=== PATIENT | female | born 1970 | race Caucasian/White ===

== ENCOUNTER 2017-07-29 13:06 | Inpatient (IN) | payer MEDICAID ==
[~2017-07-29] VITALS: Ht 165.1 cm; Wt 137.0 kg
[2017-07-29] VITALS (24 sets, daily range): BP systolic 76–133; BP diastolic 39–107
[2017-07-29] MEDS ORDERED: LORazepam Inj 2mg/ml 1ml IV ONE (13:30)
[2017-07-29 14:15] LABS: HEMATOCRIT 36.4 % (37.0-47.0); HEMOGLOBIN 10.5 G/DL (12.0-16.0); MEAN CORPUSCULAR VOLUME 71 FL (80-99); PLATELET COUNT 525 K/UL (150-450); RED BLOOD COUNT 5.09 M/UL (4.20-5.40); RED CELL DISTRIBUTION WIDTH 16.2 % (11.6-14.8)
[2017-07-29] MEDS ORDERED: Vancomycin 1.5gm/D5W 250ml 250 ML IVPB ONE (14:15)
[2017-07-29] MEDS ORDERED: Piperacillin/Tazobactam 3.375 GM in NS 110 ML IVPB ONE (14:15)
[2017-07-29] MEDS ORDERED: Insulin Human Regular 100units/ml 3ml IV ONE ×3 (14:15→18:30)
--- NOTE | 2017-07-29 14:16 | Emergency Room Report ---
History of Present Illness General Chief Complaint: Dizziness Source: Patient Present Illness HPI Patient presents with complaints of dizziness Upon initial evaluation patient appears tachypneic, hyperventilating Presented hypotensive Patient also complains of lower abdomen redness and recent antibiotic initiation Patient herself is extremely ill, speaks in 1 or 2 word sentences Mother reports that last night she did not appear to sick she had started her antibiotics And this morning appeared more ill Patient does not have history of diabetes however Accu-Chek reading was HI here in the emergency room indicating blood sugar over 500 Allergies: Coded Allergies: PENICILLINS (Verified Allergy, Unknown, 07/30/17) Patient History Limited by: medical condition Past Medical History: see triage record Pertinent Family History: none Now: No Reviewed Nursing Documentation: PMH: Agreed; PSxH: Agreed Nursing Documentation-PMH Past Medical History: No Stated History Review of Systems All Other Systems: limited - Other than the ones mentioned in the history of present illness all others are reviewed however they do stay limited due to the patient's mental status Physical Exam Vital Signs Date Time Temp Pulse Resp B/P (MAP) Pulse Ox O2 Delivery O2 Flow Rate FiO2 07/29/17 13:02 97.0 100 16 73/49 98 Room Air 97.0 Sp02 EP Interpretation: reviewed, normal General Appearance: moderate distress - Tachypneic and ill-appearing Head: normocephalic, atraumatic Eyes: bilateral eye PERRL ENT: dry mucus membranes Neck: full range of motion, supple Respiratory: lungs clear, normal breath sounds Cardiovascular #1: regular rate, rhythm, no murmur Gastrointestinal: other - Area of erythema and fluctuance over the suprapubic area tracking to the left lower abdomen Genitourinary: no CVA tenderness Musculoskeletal: other - No obvious focal weakness however patient is generally weak Neurologic: alert, responsive - With increased stimulation patient is verbal, however lethargic and sluggish to respond, Skin: other - General pallor along with erythema and fluctuance lower abdomen as described above Lymphatic: no adenopathy Procedures Critical Care Time Critical Care Time 50 minutes for multiple re-evaluations , critical presentations, concern for cardiopulmonary arrest not including any procedural time Central Line Central Line : Consent: Emergent Central Line Lumen: triple Maximal Sterile Barrier Tech: yes cap, yes mask, yes sterile gown, yes sterile gloves, yes large sterile sheet, yes hand hygiene, yes chlorhexidine prep Central Line Postion: femoral (R) Complications: none Central Line Post Position: sutured Attempts: Other - 2 Patient Tolerated: Well Complications: None Progress ultrasound guidance Intubation Intubation : Consent: Emergent Intubation Method: orotracheal Tube Size (cm): 8.0 Medications: Etomidate, Succinylcholine Breath Sounds after Intubation: equal Intubation Complications: no complications, O2 saturation decreased Post Intubation Xray: Yes Attempts: One Patient Tolerated: Well Complications: None Progress Upon oral intubation please note that the patient's pharyngeal region had evidence of significant pustules and erythema Medical Decision Making Diagnostic Impression: Primary Impression: Septic shock Additional Impressions: Cellulitis Necrotizing fasciitis DKA (diabetic ketoacidoses) ER Course Patient is presenting in critical condition Is in acute distress requiring aggressive hydration Patient's blood glucose is also dangerously elevated Initial hydration attempts and IV insulin is made Patient requiring central line placement including airway protection with oral intubation Patient has signs and symptoms of severe sepsis and septic shock Patient also showing signs of DKA Multidisciplinary consultations are made and have seen the patient to the emergency room including infectious disease and surgery There is concern regarding possible necrotizing fasciitis and early Javier's gangrene Patient remains in critical condition and has extreme poor prognosis given this initial presentation Sepsis reexamination Time:0 VS refer to nursing note cvs: Tachycardic respiratory: improved respiration peripheral pulses: 2+radial cap refill:<2 seconds skin exam: warm, dry, not mottled Labs Test 07/29/17 13:55 07/29/17 15:00 07/29/17 15:34 07/29/17 17:52 White Blood Count 36.2 K/UL (4.8-10.8) Red Blood Count 5.09 M/UL (4.20-5.40) Hemoglobin 10.5 G/DL (12.0-16.0) Hematocrit 36.4 % (37.0-47.0) Mean Corpuscular Volume 71 FL (80-99) Mean Corpuscular Hemoglobin 20.6 PG (27.0-31.0) Mean Corpuscular Hemoglobin Concent 28.9 G/DL (32.0-36.0) Red Cell Distribution Width 16.2 % (11.6-14.8) Platelet Count 525 K/UL (150-450) Mean Platelet Volume 8.3 FL (6.5-10.1) Neutrophils (%) (Auto) % (45.0-75.0) Lymphocytes (%) (Auto) % (20.0-45.0) Monocytes (%) (Auto) % (1.0-10.0) Eosinophils (%) (Auto) % (0.0-3.0) Basophils (%) (Auto) % (0.0-2.0) Differential Total Cells Counted 100 Neutrophils % (Manual) 69 % (45-75) Lymphocytes % (Manual) 10 % (20-45) Monocytes % (Manual) 5 % (1-10) Eosinophils % (Manual) 0 % (0-3) Basophils % (Manual) 0 % (0-2) Band Neutrophils 16 % (0-8) Platelet Estimate Increased Platelet Morphology Giant Platelets Occasional Polychromasia 1+ Hypochromasia 1+ Anisocytosis 1+ Microcytosis 1+ D-Dimer 1.85 mg/L FEU (0.00-0.49) Urine Color Pale yellow Urine Appearance Clear Urine pH 5 (4.5-8.0) Urine Specific [place] 1.020 (1.005-1.035) Urine Protein 3+ (NEGATIVE) Urine Glucose (UA) 4+ (NEGATIVE) Urine Ketones 3+ (NEGATIVE) Urine Occult Blood 5+ (NEGATIVE) Urine Nitrite Negative (NEGATIVE) Urine Bilirubin Negative (NEGATIVE) Urine Urobilinogen Normal MG/DL (0.0-1.0) Urine Leukocyte Esterase 3+ (NEGATIVE) Urine RBC 5-10 /HPF (0 - 2) Urine WBC 5-10 /HPF (0 - 2) Urine Squamous Epithelial Cells Moderate /LPF (NONE/OCC) Urine Bacteria Few /HPF (NONE) Urine HCG, Qualitative Negative (NEGATIVE) Sodium Level 118 MMOL/L (136-145) Potassium Level 5.0 MMOL/L (3.5-5.1) Chloride Level 85 MMOL/L (98-107) Carbon Dioxide Level < 5 MMOL/L (21-32) Blood Urea Nitrogen 28 mg/dL (7-18) Creatinine 1.8 MG/DL (0.55-1.30) Estimat Glomerular Filtration Rate 30.1 mL/min (>60) Glucose Level 868 MG/DL (74-106) Calcium Level 10.7 MG/DL (8.5-10.1) Total Bilirubin 0.7 MG/DL (0.2-1.0) Aspartate Amino Transf (AST/SGOT) 44 U/L (15-37) Alanine Aminotransferase (ALT/SGPT) 29 U/L (12-78) Alkaline Phosphatase 337 U/L (46-116) Total Creatine Kinase 159 U/L (26-308) Creatine Kinase MB 3.3 NG/ML (0.0-3.6) Creatine Kinase MB Relative Index 2.0 Troponin I 0.000 ng/mL (0.000-0.056) Pro-B-Type Natriuretic Peptide 5024 pg/mL (0-125) Total Protein 8.3 G/DL (6.4-8.2) Albumin 2.3 G/DL (3.4-5.0) Globulin 6.0 g/dL Albumin/Globulin Ratio 0.4 (1.0-2.7) Lipase 47 U/L (73-393) Urine Opiates Screen Negative (NEGATIVE) Urine Barbiturates Screen Negative (NEGATIVE) Phencyclidine (PCP) Screen Negative (NEGATIVE) Urine Amphetamines Screen Negative (NEGATIVE) Urine Benzodiazepines Screen Negative (NEGATIVE) Urine Cocaine Screen Negative (NEGATIVE) Urine Marijuana (THC) Screen Negative (NEGATIVE) Lactic Acid Level 1.10 mmol/L (0.66-2.22) Arterial Blood pH 6.830 (7.350-7.450) 6.790 (7.350-7.450) Arterial Blood Partial Pressure CO2 21.0 mmHg (35.0-45.0) 29.8 mmHg (35.0-45.0) Arterial Blood Partial Pressure O2 108.8 mmHg (75.0-100.0) 100.5 mmHg (75.0-100.0) Arterial Blood HCO3 3.4 mmol/L (22.0-26.0) 4.4 mmol/L (22.0-26.0) Arterial Blood Oxygen Saturation 95.7 % (92.0-98.0) 94.4 % (92.0-98.0) Arterial Blood Base Excess -29.1 -28.9 Ravi Test Positive Positive Test 07/29/17 19:56 07/29/17 20:40 07/30/17 04:50 07/30/17 07:00 Glucose Level 530 MG/DL (74-106) 231 MG/DL (74-106) Arterial Blood pH 6.992 (7.350-7.450) 7.170 (7.350-7.450) Arterial Blood Partial Pressure CO2 25.7 mmHg (35.0-45.0) 24.9 mmHg (35.0-45.0) Arterial Blood Partial Pressure O2 110.9 mmHg (75.0-100.0) 114.4 mmHg (75.0-100.0) Arterial Blood HCO3 6.1 mmol/L (22.0-26.0) 9.0 mmol/L (22.0-26.0) Arterial Blood Oxygen Saturation 97.4 % (92.0-98.0) 97.9 % (92.0-98.0) Arterial Blood Base Excess -23.8 -17.8 Ravi Test Positive Positive White Blood Count 19.9 K/UL (4.8-10.8) Red Blood Count 4.23 M/UL (4.20-5.40) Hemoglobin 9.4 G/DL (12.0-16.0) Hematocrit 29.0 % (37.0-47.0) Mean Corpuscular Volume 69 FL (80-99) Mean Corpuscular Hemoglobin 22.3 PG (27.0-31.0) Mean Corpuscular Hemoglobin Concent 32.6 G/DL (32.0-36.0) Red Cell Distribution Width 15.6 % (11.6-14.8) Platelet Count 375 K/UL (150-450) Mean Platelet Volume 7.7 FL (6.5-10.1) Neutrophils (%) (Auto) % (45.0-75.0) Lymphocytes (%) (Auto) % (20.0-45.0) Monocytes (%) (Auto) % (1.0-10.0) Eosinophils (%) (Auto) % (0.0-3.0) Basophils (%) (Auto) % (0.0-2.0) Differential Total Cells Counted 100 Neutrophils % (Manual) 72 % (45-75) Lymphocytes % (Manual) 5 % (20-45) Monocytes % (Manual) 6 % (1-10) Eosinophils % (Manual) 0 % (0-3) Basophils % (Manual) 0 % (0-2) Band Neutrophils 17 % (0-8) Platelet Estimate Adequate Platelet Morphology Normal Hypochromasia 1+ Anisocytosis 1+ Microcytosis 1+ Sodium Level 130 MMOL/L (136-145) Potassium Level 2.4 MMOL/L (3.5-5.1) Chloride Level 101 MMOL/L (98-107) Carbon Dioxide Level 11 MMOL/L (21-32) Anion Gap 19 mmol/L (5-15) Blood Urea Nitrogen 39 mg/dL (7-18) Creatinine 2.6 MG/DL (0.55-1.30) Estimat Glomerular Filtration Rate 19.7 mL/min (>60) Hemoglobin A1c 12.6 % (4.3-6.0) Calcium Level 9.6 MG/DL (8.5-10.1) Phosphorus Level 1.7 MG/DL (2.5-4.9) Magnesium Level 1.2 MG/DL (1.8-2.4) Troponin I 0.017 ng/mL (0.000-0.056) Triglycerides Level 193 MG/DL (30-150) Thyroid Stimulating Hormone (TSH) 1.303 uiU/mL (0.358-3.740) Free Thyroxine 1.23 NG/DL (0.76-1.46) Rhythm Strip Diag. Results EP Interpretation: yes Rate: 105 Rhythm: no PVC's, no ectopy, other - Sinus tach Chest X-Ray Diagnostic Results Chest X-Ray Diagnostic Results #1: Chest X-Ray Ordered: Yes # of Views/Limited/Complete: 1 View Indication: Chest Pain EP Interpretation: Yes Interpretation: no pneumothorax, other - Bilateral atelectasis/possible infiltrate Impression: Other - Possible infiltrated/atelectasis Electronically Signed by: Indy Frankel DO Chest X-Ray Diagnostic Results #2: Chest X-Ray Ordered: Yes # of Views/Limited/Complete: 1 View Indication: Other - Intubation EP Interpretation: Yes Interpretation: no consolidation, no pneumothorax, other - ET tube approximately 2.5 cmAbove waqar Impression: Other - ET tube appropriate, continued bilateral atelectasis Electronically Signed by: Indy Frankel DO CT/MRI/US Diagnostic Results CT/MRI/US Diagnostic Results : Impression CT abdomen pelvisIMPRESSION: Exam without intravenous and oral contrast. Within these limitations: * Skin thickening and subcutaneous inflammatory change involving the left lower anterior abdominal wall most likely related to a cellulitis. Correlation with physical exam recommended. No well-defined/drainable fluid collection to suggest abscess. * Contracted gallbladder with probable calcified gallstone. No definite CT evidence to suggest an acute cholecystitis. * Under distention versus thickening of the bladder wall. * Probable fibroid uterus. * Fatty atrophy of the pancreas. Correlate for history of diabetes. Last Vital Signs Date Time Temp Pulse Resp B/P (MAP) Pulse Ox O2 Delivery O2 Flow Rate FiO2 07/29/17 13:02 97.0 100 16 73/49 98 Room Air 97.0 Status: worsened Disposition: ADMITTED INPATIENT Condition: Critical Referrals: NOT CHOSEN IPA/,REFERRING (PCP) Indy Frankel DO July 29, 2017 14:16
[2017-07-29 14:17] LABS: APPEARANCE,URINE CLEAR; BILIRUBIN, URINE NEGATIVE (NEGATIVE); COLOR,URINE PALE YELLOW; GLUCOSE, URINE (UA) 4+ (NEGATIVE); KETONES,URINE 3+ (NEGATIVE); LEUKOCYTE ESTERASE ,URINE 3+ (NEGATIVE); NITRITE,URINE NEGATIVE (NEGATIVE); PH,URINE 5 (4.5-8.0); PROTEIN,URINE 3+ (NEGATIVE); UROBILINOGEN,URINE NORMAL MG/DL (0.0-1.0)
[2017-07-29 14:28] LABS: WHITE BLOOD COUNT 36.2 K/UL (4.8-10.8)
[2017-07-29 14:56] LABS: ALANINE AMINOTRANSFERASE 29 U/L (12-78); ALBUMIN 2.3 G/DL (3.4-5.0); ALBUMIN/GLOBULIN RATIO 0.4 (1.0-2.7); ALKALINE PHOSPHATASE 337 U/L (46-116); ASPARTATE AMINO TRANSFERASE 44 U/L (15-37); BILIRUBIN,TOTAL 0.7 MG/DL (0.2-1.0); BLOOD UREA NITROGEN 28 mg/dL (7-18); CALCIUM 10.7 MG/DL (8.5-10.1); CHLORIDE 85 MMOL/L (98-107); CKMB 3.3 NG/ML (0.0-3.6); CREATINE KINASE 159 U/L (26-308); CREATININE 1.8 MG/DL (0.55-1.30)
[2017-07-29 15:00] LABS: SODIUM 118 MMOL/L (136-145)
[2017-07-29 15:15] LABS: CARBON DIOXIDE < 5 MMOL/L (21-32)
--- NOTE | 2017-07-29 15:53 | Diagnostic Imaging Report ---
Indication: Abdominal pain Technique: CT of the abdomen and pelvis utilizing automated exposure control without intravenous or oral contrast. CT dose: Total DLP 1073.87 mGycm; CTDI vol 19.75 mGy Comparison: None Findings: Please note that evaluation of the vascular structures and abdominal and pelvic viscera is limited without the use of intravenous and oral contrast. Within these limitations, the following observations are made. Dependent atelectasis noted in the lung bases. Heart is enlarged. No pericardial effusion. Contracted gallbladder with probable calcified gallstone. No CT evidence to suggest acute cholecystitis. Noncontrast evaluation of the liver, spleen, adrenal glands grossly unremarkable. There is fatty atrophy of the pancreas. No evidence of urinary tract stone or hydronephrosis bilaterally. There is underdistention versus thickening of the bladder. The uterus is enlarged and somewhat lobular in contour raising question for fibroids. There is no free intraperitoneal air or fluid. There is no evidence of bowel obstruction. The appendix is normal. Abdominal aorta is normal in caliber. There is no pathologically enlarged abdominal or pelvic lymphadenopathy. Small inguinal lymph nodes are noted, likely reactive in etiology. There is a small fat-containing umbilical hernia. There is skin thickening with subcutaneous soft tissue stranding involving the left anterior abdominal wall. There is no well-defined or drainable fluid collection to suggest abscess. Findings may reflect a cellulitis. Correlate clinically. There are multilevel degenerative changes of the spine. No acute osseous abnormality seen. IMPRESSION: Exam without intravenous and oral contrast. Within these limitations: * Skin thickening and subcutaneous inflammatory change involving the left lower anterior abdominal wall most likely related to a cellulitis. Correlation with physical exam recommended. No well-defined/drainable fluid collection to suggest abscess. * Contracted gallbladder with probable calcified gallstone. No definite CT evidence to suggest an acute cholecystitis. * Under distention versus thickening of the bladder wall. * Probable fibroid uterus. * Fatty atrophy of the pancreas. Correlate for history of diabetes. The CT scanner at [facility] is accredited by the [employer] and the scans are performed using protocols designed to limit radiation exposure to as low as reasonably achievable to attain images of sufficient resolution adequate for diagnostic evaluation.
--- NOTE | 2017-07-29 16:39 | Cardiac Electrophysiology PN ---
Subjective Subjective Patient seen in ER and DW RN, Dr Garcia and Dr Colbert. Dictated [id number] Objective Last 24 Hour Vital Signs Date Time Temp Pulse Resp B/P (MAP) Pulse Ox O2 Delivery O2 Flow Rate FiO2 07/29/17 15:04 97.0 79 34 103/98 99 Room Air 97.0 07/29/17 13:02 97.0 100 16 73/49 98 Room Air 97.0 Laboratory Tests Test 07/29/17 13:55 07/29/17 15:00 07/29/17 15:34 White Blood Count 36.2 K/UL (4.8-10.8) *H Red Blood Count 5.09 M/UL (4.20-5.40) Hemoglobin 10.5 G/DL (12.0-16.0) L Hematocrit 36.4 % (37.0-47.0) L Mean Corpuscular Volume 71 FL (80-99) L Mean Corpuscular Hemoglobin 20.6 PG (27.0-31.0) L Mean Corpuscular Hemoglobin Concent 28.9 G/DL (32.0-36.0) L Red Cell Distribution Width 16.2 % (11.6-14.8) H Platelet Count 525 K/UL (150-450) H Mean Platelet Volume 8.3 FL (6.5-10.1) Neutrophils (%) (Auto) % (45.0-75.0) Lymphocytes (%) (Auto) % (20.0-45.0) Monocytes (%) (Auto) % (1.0-10.0) Eosinophils (%) (Auto) % (0.0-3.0) Basophils (%) (Auto) % (0.0-2.0) Differential Total Cells Counted 100 Neutrophils % (Manual) 69 % (45-75) Lymphocytes % (Manual) 10 % (20-45) L Monocytes % (Manual) 5 % (1-10) Eosinophils % (Manual) 0 % (0-3) Basophils % (Manual) 0 % (0-2) Band Neutrophils 16 % (0-8) H Platelet Estimate Increased H Platelet Morphology Giant Platelets Occasional Polychromasia 1+ Hypochromasia 1+ Anisocytosis 1+ Microcytosis 1+ D-Dimer 1.85 mg/L FEU (0.00-0.49) H Urine Color Pale yellow Urine Appearance Clear Urine pH 5 (4.5-8.0) Urine Specific [place] 1.020 (1.005-1.035) Urine Protein 3+ (NEGATIVE) H Urine Glucose (UA) 4+ (NEGATIVE) H Urine Ketones 3+ (NEGATIVE) H Urine Occult Blood 5+ (NEGATIVE) H Urine Nitrite Negative (NEGATIVE) Urine Bilirubin Negative (NEGATIVE) Urine Urobilinogen Normal MG/DL (0.0-1.0) Urine Leukocyte Esterase 3+ (NEGATIVE) H Urine RBC 5-10 /HPF (0 - 2) H Urine WBC 5-10 /HPF (0 - 2) H Urine Squamous Epithelial Cells Moderate /LPF (NONE/OCC) H Urine Bacteria Few /HPF (NONE) Urine HCG, Qualitative Negative (NEGATIVE) Sodium Level 118 MMOL/L (136-145) *L Potassium Level 5.0 MMOL/L (3.5-5.1) Chloride Level 85 MMOL/L (98-107) L Carbon Dioxide Level < 5 MMOL/L (21-32) *L Blood Urea Nitrogen 28 mg/dL (7-18) H Creatinine 1.8 MG/DL (0.55-1.30) H Estimat Glomerular Filtration Rate 30.1 mL/min (>60) Glucose Level 868 MG/DL (74-106) *H Calcium Level 10.7 MG/DL (8.5-10.1) H Total Bilirubin 0.7 MG/DL (0.2-1.0) Aspartate Amino Transf (AST/SGOT) 44 U/L (15-37) H Alanine Aminotransferase (ALT/SGPT) 29 U/L (12-78) Alkaline Phosphatase 337 U/L (46-116) H Total Creatine Kinase 159 U/L (26-308) Creatine Kinase MB 3.3 NG/ML (0.0-3.6) Creatine Kinase MB Relative Index 2.0 Troponin I 0.000 ng/mL (0.000-0.056) Pro-B-Type Natriuretic Peptide 5024 pg/mL (0-125) H Total Protein 8.3 G/DL (6.4-8.2) H Albumin 2.3 G/DL (3.4-5.0) L Globulin 6.0 g/dL Albumin/Globulin Ratio 0.4 (1.0-2.7) L Lipase 47 U/L (73-393) L Urine Opiates Screen Negative (NEGATIVE) Urine Barbiturates Screen Negative (NEGATIVE) Phencyclidine (PCP) Screen Negative (NEGATIVE) Urine Amphetamines Screen Negative (NEGATIVE) Urine Benzodiazepines Screen Negative (NEGATIVE) Urine Cocaine Screen Negative (NEGATIVE) Urine Marijuana (THC) Screen Negative (NEGATIVE) Lactic Acid Level 1.10 mmol/L (0.66-2.22) Arterial Blood pH 6.830 (7.350-7.450) Arterial Blood Partial Pressure CO2 21.0 mmHg (35.0-45.0) *L Arterial Blood Partial Pressure O2 108.8 mmHg (75.0-100.0) H Arterial Blood HCO3 3.4 mmol/L (22.0-26.0) L Arterial Blood Oxygen Saturation 95.7 % (92.0-98.0) Arterial Blood Base Excess -29.1 Ravi Test Positive Adama Trujillo MD July 29, 2017 16:39
[2017-07-29] MEDS ORDERED: Zosyn 3.375gm inj ONE (16:56)
--- NOTE | 2017-07-29 17:10 | Infectious Diseases Prog Note ---
Assessment/Plan Problems: (1) Cellulitis of abdominal wall Assessment & Plan: rule out necrotizing fasciitis , will continue vancomycin and zosyn empiric coverage, recommend urgent surgical consult for further eval (2) UTI (urinary tract infection) Assessment & Plan: will send urine culture, she is already on zosyn (3) Pharyngitis, acute Assessment & Plan: already on zosyn (4) Septic shock Assessment & Plan: due to the above will send blood culture and start vancomycin with zosyn empiric coverage (5) Acute respiratory failure Assessment & Plan: due to the above, intubated in ED started on mechanical ventilation, 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 and 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 up (6) SCARLET (acute kidney injury) Assessment & Plan: due to the above, continue fluids for hydration and blood pressure support, nephrology is following (7) DKA (diabetic ketoacidoses) Assessment & Plan: due to poorly controlled diabetes and sepsis, recommend insulin drip in the ICU with close monitor of her blood glucose to keep between 80-120 Subjective Allergies: Uncoded Allergies: Pennicillin (Allergy, Unknown, 07/29/17) pt received a dose of Zosyn in the ER prior to verification of allergy from the mother Objective Vital Signs Last 24 Hour Vital Signs Date Time Temp Pulse Resp B/P (MAP) Pulse Ox O2 Delivery O2 Flow Rate FiO2 07/29/17 16:30 82 25 35 07/29/17 15:04 97.0 79 34 103/98 99 Room Air 97.0 07/29/17 13:02 97.0 100 16 73/49 98 Room Air 97.0 Height (Feet): 5 Height (Inches): 5.00 Weight (Pounds): 250 Laboratory Tests Test 07/29/17 13:55 07/29/17 15:00 07/29/17 15:34 White Blood Count 36.2 K/UL (4.8-10.8) *H Red Blood Count 5.09 M/UL (4.20-5.40) Hemoglobin 10.5 G/DL (12.0-16.0) L Hematocrit 36.4 % (37.0-47.0) L Mean Corpuscular Volume 71 FL (80-99) L Mean Corpuscular Hemoglobin 20.6 PG (27.0-31.0) L Mean Corpuscular Hemoglobin Concent 28.9 G/DL (32.0-36.0) L Red Cell Distribution Width 16.2 % (11.6-14.8) H Platelet Count 525 K/UL (150-450) H Mean Platelet Volume 8.3 FL (6.5-10.1) Neutrophils (%) (Auto) % (45.0-75.0) Lymphocytes (%) (Auto) % (20.0-45.0) Monocytes (%) (Auto) % (1.0-10.0) Eosinophils (%) (Auto) % (0.0-3.0) Basophils (%) (Auto) % (0.0-2.0) Differential Total Cells Counted 100 Neutrophils % (Manual) 69 % (45-75) Lymphocytes % (Manual) 10 % (20-45) L Monocytes % (Manual) 5 % (1-10) Eosinophils % (Manual) 0 % (0-3) Basophils % (Manual) 0 % (0-2) Band Neutrophils 16 % (0-8) H Platelet Estimate Increased H Platelet Morphology Giant Platelets Occasional Polychromasia 1+ Hypochromasia 1+ Anisocytosis 1+ Microcytosis 1+ D-Dimer 1.85 mg/L FEU (0.00-0.49) H Urine Color Pale yellow Urine Appearance Clear Urine pH 5 (4.5-8.0) Urine Specific [place] 1.020 (1.005-1.035) Urine Protein 3+ (NEGATIVE) H Urine Glucose (UA) 4+ (NEGATIVE) H Urine Ketones 3+ (NEGATIVE) H Urine Occult Blood 5+ (NEGATIVE) H Urine Nitrite Negative (NEGATIVE) Urine Bilirubin Negative (NEGATIVE) Urine Urobilinogen Normal MG/DL (0.0-1.0) Urine Leukocyte Esterase 3+ (NEGATIVE) H Urine RBC 5-10 /HPF (0 - 2) H Urine WBC 5-10 /HPF (0 - 2) H Urine Squamous Epithelial Cells Moderate /LPF (NONE/OCC) H Urine Bacteria Few /HPF (NONE) Urine HCG, Qualitative Negative (NEGATIVE) Sodium Level 118 MMOL/L (136-145) *L Potassium Level 5.0 MMOL/L (3.5-5.1) Chloride Level 85 MMOL/L (98-107) L Carbon Dioxide Level < 5 MMOL/L (21-32) *L Blood Urea Nitrogen 28 mg/dL (7-18) H Creatinine 1.8 MG/DL (0.55-1.30) H Estimat Glomerular Filtration Rate 30.1 mL/min (>60) Glucose Level 868 MG/DL (74-106) *H Calcium Level 10.7 MG/DL (8.5-10.1) H Total Bilirubin 0.7 MG/DL (0.2-1.0) Aspartate Amino Transf (AST/SGOT) 44 U/L (15-37) H Alanine Aminotransferase (ALT/SGPT) 29 U/L (12-78) Alkaline Phosphatase 337 U/L (46-116) H Total Creatine Kinase 159 U/L (26-308) Creatine Kinase MB 3.3 NG/ML (0.0-3.6) Creatine Kinase MB Relative Index 2.0 Troponin I 0.000 ng/mL (0.000-0.056) Pro-B-Type Natriuretic Peptide 5024 pg/mL (0-125) H Total Protein 8.3 G/DL (6.4-8.2) H Albumin 2.3 G/DL (3.4-5.0) L Globulin 6.0 g/dL Albumin/Globulin Ratio 0.4 (1.0-2.7) L Lipase 47 U/L (73-393) L Urine Opiates Screen Negative (NEGATIVE) Urine Barbiturates Screen Negative (NEGATIVE) Phencyclidine (PCP) Screen Negative (NEGATIVE) Urine Amphetamines Screen Negative (NEGATIVE) Urine Benzodiazepines Screen Negative (NEGATIVE) Urine Cocaine Screen Negative (NEGATIVE) Urine Marijuana (THC) Screen Negative (NEGATIVE) Lactic Acid Level 1.10 mmol/L (0.66-2.22) Arterial Blood pH 6.830 (7.350-7.450) Arterial Blood Partial Pressure CO2 21.0 mmHg (35.0-45.0) *L Arterial Blood Partial Pressure O2 108.8 mmHg (75.0-100.0) H Arterial Blood HCO3 3.4 mmol/L (22.0-26.0) L Arterial Blood Oxygen Saturation 95.7 % (92.0-98.0) Arterial Blood Base Excess -29.1 Ravi Test Positive Current Medications Medications (Trade) Dose Ordered Sig/Tmomy Route PRN Reason Start Time Stop Time Status Last Admin Dose Admin Insulin Human Regular 100 units/ Sodium Chloride 100 ml @ 5 mls/hr Q24H IV 07/29/17 14:15 08/28/17 14:14 Norepinephrine Bitartrate 4 mg/ Dextrose 250 ml @ 0 mls/hr Q24H IV 07/29/17 16:45 08/28/17 16:44 Piperacillin Sod/ Tazobactam Sod 3.375 gm/Sodium Chloride 110 ml @ 27.5 mls/hr EVERY 8 HOURS IVPB 07/29/17 22:00 08/03/17 21:59 Vancomycin HCl (Vanco rx to dose) 1 ea DAILY PRN MISC Per rx protocol 07/29/17 16:00 08/28/17 15:59 Vancomycin HCl 500 mg/Dextrose 110 ml @ 110 mls/hr ONCE ONCE IVPB 07/29/17 18:00 07/29/17 18:59 Johanny Colbert M.D. July 29, 2017 17:09
--- NOTE | 2017-07-29 17:16 | Diagnostic Imaging Report ---
Indication: Cough Technique: XRAY Chest 1v Comparison: None Findings: Limited exam due to lung lung volumes and underpenetration, likely secondary to patient's body habitus. There is probable cardiomegaly and questionable mild vascular congestion. There is no definite focal airspace consolidation. No significant pleural effusion. No definite pneumothorax. There are degenerative changes of the spine. No acute osseous abnormality is seen. Impression: Limited exam due. Question mild cardiomegaly and pulmonary vascular congestion, likely artifactually exaggerated due to low lung volumes. No definite focal airspace consolidation.
[2017-07-29] MEDS ORDERED: Vancomycin 500mg/D5W 110ml IVPB ONE ×2 (18:00)
[2017-07-29] MEDS ORDERED: Insulin Human Regular 100units/ml 3ml ONE (18:28)
--- NOTE | 2017-07-29 19:08 | Pulmonolgy Critical Care Note ---
Critical Care - Asmt/Plan Assessment/Plan: Patient is a 46 year old woman admitted with abdominal wall cellulitis, severe Diabetic Ketoacidosis, currently intubated and sedated in the ICU On antibiotics per ID Insulin gtt per Endocrine Will increase ventilator rate to improve Metabolic acidosis compensation as well as starting bicarbonate gtt Will recheck ABG and CXR to assess ETT Problems: (1) Cellulitis of abdominal wall Assessment & Plan: rule out necrotizing fasciitis , will continue vancomycin and zosyn empiric coverage, surgery following (2) UTI (urinary tract infection) Assessment & Plan: urine culture sent, she is already on zosyn (3) Pharyngitis, acute Antibiotics/ID (4) Septic shock Assessment & Plan: due to the above will send blood culture and start vancomycin with zosyn empiric coverage (5) Acute respiratory failure Assessment & Plan: due to the above, intubated in ED continue on mechanical ventilation, seadtion for RASS -1 (6) SCARLET (acute kidney injury) Assessment & Plan: due to the above, continue fluids for hydration and blood pressure support, nephrology is following (7) DKA (diabetic ketoacidoses) Assessment & Plan: due to poorly controlled diabetes and sepsis, recommend insulin drip in the ICU with close monitor of her blood glucose to keep between 80-120 Subjective Allergies: Coded Allergies: No Known Allergies (Unverified , 07/29/17) Objective Vital Signs Last 24 Hour Vital Signs Date Time Temp Pulse Resp B/P (MAP) Pulse Ox O2 Delivery O2 Flow Rate FiO2 07/29/17 16:30 82 25 35 07/29/17 15:04 97.0 79 34 103/98 99 Room Air 97.0 07/29/17 13:02 97.0 100 16 73/49 98 Room Air 97.0 Height (Feet): 5 Height (Inches): 5.00 Weight (Pounds): 250 Patient sedated on the ventilator Obese HEENT: NCAT, PERRL, moist MM Chest: CTAB, equal BS, 8.0 ETT 23cm Heart: HS1, Hs2 RRR Abdomen: Obese, erethematous area lower abdominal wall Extremeties: No rashes SUPERVISING LIBRARIAN: No focal signs noted, no seizures Laboratory Tests Test 07/29/17 13:55 07/29/17 15:00 07/29/17 15:34 White Blood Count 36.2 K/UL (4.8-10.8) *H Red Blood Count 5.09 M/UL (4.20-5.40) Hemoglobin 10.5 G/DL (12.0-16.0) L Hematocrit 36.4 % (37.0-47.0) L Mean Corpuscular Volume 71 FL (80-99) L Mean Corpuscular Hemoglobin 20.6 PG (27.0-31.0) L Mean Corpuscular Hemoglobin Concent 28.9 G/DL (32.0-36.0) L Red Cell Distribution Width 16.2 % (11.6-14.8) H Platelet Count 525 K/UL (150-450) H Mean Platelet Volume 8.3 FL (6.5-10.1) Neutrophils (%) (Auto) % (45.0-75.0) Lymphocytes (%) (Auto) % (20.0-45.0) Monocytes (%) (Auto) % (1.0-10.0) Eosinophils (%) (Auto) % (0.0-3.0) Basophils (%) (Auto) % (0.0-2.0) Differential Total Cells Counted 100 Neutrophils % (Manual) 69 % (45-75) Lymphocytes % (Manual) 10 % (20-45) L Monocytes % (Manual) 5 % (1-10) Eosinophils % (Manual) 0 % (0-3) Basophils % (Manual) 0 % (0-2) Band Neutrophils 16 % (0-8) H Platelet Estimate Increased H Platelet Morphology Giant Platelets Occasional Polychromasia 1+ Hypochromasia 1+ Anisocytosis 1+ Microcytosis 1+ D-Dimer 1.85 mg/L FEU (0.00-0.49) H Urine Color Pale yellow Urine Appearance Clear Urine pH 5 (4.5-8.0) Urine Specific [place] 1.020 (1.005-1.035) Urine Protein 3+ (NEGATIVE) H Urine Glucose (UA) 4+ (NEGATIVE) H Urine Ketones 3+ (NEGATIVE) H Urine Occult Blood 5+ (NEGATIVE) H Urine Nitrite Negative (NEGATIVE) Urine Bilirubin Negative (NEGATIVE) Urine Urobilinogen Normal MG/DL (0.0-1.0) Urine Leukocyte Esterase 3+ (NEGATIVE) H Urine RBC 5-10 /HPF (0 - 2) H Urine WBC 5-10 /HPF (0 - 2) H Urine Squamous Epithelial Cells Moderate /LPF (NONE/OCC) H Urine Bacteria Few /HPF (NONE) Urine HCG, Qualitative Negative (NEGATIVE) Sodium Level 118 MMOL/L (136-145) *L Potassium Level 5.0 MMOL/L (3.5-5.1) Chloride Level 85 MMOL/L (98-107) L Carbon Dioxide Level < 5 MMOL/L (21-32) *L Blood Urea Nitrogen 28 mg/dL (7-18) H Creatinine 1.8 MG/DL (0.55-1.30) H Estimat Glomerular Filtration Rate 30.1 mL/min (>60) Glucose Level 868 MG/DL (74-106) *H Calcium Level 10.7 MG/DL (8.5-10.1) H Total Bilirubin 0.7 MG/DL (0.2-1.0) Aspartate Amino Transf (AST/SGOT) 44 U/L (15-37) H Alanine Aminotransferase (ALT/SGPT) 29 U/L (12-78) Alkaline Phosphatase 337 U/L (46-116) H Total Creatine Kinase 159 U/L (26-308) Creatine Kinase MB 3.3 NG/ML (0.0-3.6) Creatine Kinase MB Relative Index 2.0 Troponin I 0.000 ng/mL (0.000-0.056) Pro-B-Type Natriuretic Peptide 5024 pg/mL (0-125) H Total Protein 8.3 G/DL (6.4-8.2) H Albumin 2.3 G/DL (3.4-5.0) L Globulin 6.0 g/dL Albumin/Globulin Ratio 0.4 (1.0-2.7) L Lipase 47 U/L (73-393) L Urine Opiates Screen Negative (NEGATIVE) Urine Barbiturates Screen Negative (NEGATIVE) Phencyclidine (PCP) Screen Negative (NEGATIVE) Urine Amphetamines Screen Negative (NEGATIVE) Urine Benzodiazepines Screen Negative (NEGATIVE) Urine Cocaine Screen Negative (NEGATIVE) Urine Marijuana (THC) Screen Negative (NEGATIVE) Lactic Acid Level 1.10 mmol/L (0.66-2.22) Arterial Blood pH 6.830 (7.350-7.450) Arterial Blood Partial Pressure CO2 21.0 mmHg (35.0-45.0) *L Arterial Blood Partial Pressure O2 108.8 mmHg (75.0-100.0) H Arterial Blood HCO3 3.4 mmol/L (22.0-26.0) L Arterial Blood Oxygen Saturation 95.7 % (92.0-98.0) Arterial Blood Base Excess -29.1 Ravi Test Positive Current Medications Medications (Trade) Dose Ordered Sig/Tommy Route PRN Reason Start Time Stop Time Status Last Admin Dose Admin Insulin Human Regular 100 units/ Sodium Chloride 100 ml @ 5 mls/hr Q24H IV 07/29/17 14:15 08/28/17 14:14 Norepinephrine Bitartrate 4 mg/ Dextrose 250 ml @ 0 mls/hr Q24H IV 07/29/17 16:45 08/28/17 16:44 Piperacillin Sod/ Tazobactam Sod 3.375 gm/Sodium Chloride 110 ml @ 27.5 mls/hr EVERY 8 HOURS IVPB 07/29/17 22:00 08/03/17 21:59 Vancomycin HCl (Vanco rx to dose) 1 ea DAILY PRN MISC Per rx protocol 07/29/17 16:00 08/28/17 15:59 Vancomycin HCl 500 mg/Dextrose 110 ml @ 110 mls/hr ONCE ONCE IVPB 07/29/17 18:00 07/29/17 18:59 Critical Care - Objective Last 24 Hour Vital Signs Date Time Temp Pulse Resp B/P (MAP) Pulse Ox O2 Delivery O2 Flow Rate FiO2 07/29/17 18:47 92/45 07/29/17 18:42 82/38 07/29/17 18:37 85/40 07/29/17 18:32 85/40 07/29/17 18:27 85/40 07/29/17 18:22 77/35 07/29/17 18:17 76/37 07/29/17 18:12 77/32 07/29/17 18:07 76/35 07/29/17 18:03 75/32 07/29/17 17:00 83 25 109/60 99 Room Air 15.0 35 07/29/17 16:30 82 25 35 07/29/17 16:30 98.0 85 29 92/60 98 Mechanical Ventilator 15.0 35 98.0 07/29/17 16:15 15.0 35 07/29/17 16:00 86 32 133/107 99 Room Air 07/29/17 15:04 97.0 79 34 103/98 99 Room Air 97.0 07/29/17 13:02 97.0 100 16 73/49 98 Room Air 97.0 Accucheck: 868 Critical Care - Subjective ROS Limited/Unobtainable: Yes Condition: critical IV Access: central EKG Rhythm: Sinus Rhythm FI02: 35 Vent Support Breath Rate: 22 Vent Support Mode: AC Vent Tidal Volume: 650 Sputum Amount: None PEEP: 5.0 ET-Tube: 8.0 ET Position: 22 Marko Chaney M.D. July 29, 2017 19:08
[2017-07-29] MEDS ORDERED: Pantoprazole Inj IVP SCH (20:00)
--- NOTE | 2017-07-29 21:00 | History and Physical Report ---
DATE OF ADMISSION: 07/29/2017 DATE OF ADMISSION: July 29, 2017. PURPOSE FOR ADMISSION: 1. Septic shock. 2. Diabetic ketoacidosis. 3. Pseudohyponatremia. 4. Acute kidney injury. HISTORY OF PRESENT ILLNESS: The patient is a 46-year-old female, who I saw in the emergency room. She is currently intubated on mechanical ventilation. As such, history was obtained through discussion with bedside nursing and electronic chart review. The patient had presented with complaints of some dizziness and not feeling well. She was breathing fast and hyperventilating and found to be hypotensive. She had also complained of some lower abdominal irritation and redness. She was having difficulty speaking, she was panting and breathing so quickly. Her mother had reported that she did not appear sick last night and had started on her antibiotics for her abdomen and by the morning she appeared very ill. When it was noted the patient had extremely elevated high glucose of almost 900 with a serum sodium of 118 and a bicarb level less than 5. The patient has since been intubated and placed on mechanical ventilation. ALLERGIES: No known drug allergies. PAST MEDICAL HISTORY: Diabetes mellitus. PAST SURGICAL HISTORY: Not known, the patient intubated. REVIEW OF SYSTEMS: Cannot obtain as patient is intubated on mechanical ventilation. FAMILY HISTORY: Noncontributory. PHYSICAL EXAMINATION: VITAL SIGNS: Blood pressure 109/60, FiO2 of 35%, pulse oximetry of 99. GENERAL: The patient is intubated, sedated on mechanical ventilation. HEENT: Conjugate eye gaze. No lymphadenopathy. CARDIOVASCULAR: S1 and S2. No rubs or gallops. PULMONARY: Mild rhonchi. Fair air movement in all matthews. ABDOMEN: Obese, nondistended and nontender with some erythema noted. EXTREMITIES: Trace edema bilaterally. LABORATORY AND DIAGNOSTIC DATA: sodium 118, potassium 5, chloride 85, bicarb less than 5, BUN 28, creatinine 1.8, glucose 868, calcium 10.7. AST 44, ALT 29, alkaline phosphatase 337. Troponin 0. Albumin 2.3. Lipase 47. White cell count 36.2, hemoglobin 10.5, platelet count 525. ASSESSMENT AND PLAN: 1. Diabetic ketoacidosis with serum glucose of 868. The patient will be placed on diabetic ketoacidosis protocol and stat consult was requested from cone treater, Dr. yNe. I spoke personally to Dr. Nye and he will be evaluating and managing the diabetic ketoacidosis. 2. Septic shock. Dr. Trujillo, Cardiology was consulted and managing intravenous pressors. Blood pressure last checked was 77/35. The patient will need aggressive hydration and hemodynamic support per Dr. Trujillo. 3. Pseudohyponatremia. Sodium 118 after correction approximately 130. The patient needs to be aggressively hydrated and diabetic ketoacidosis corrected. 4. Acute kidney injury secondary from severe volume depletion and ischemic acute tubular necrosis from hypotension. Maintain hemodynamic support with mean arterial blood pressure greater than 65 mmHg. IV pressors per Dr. Trujillo. 5. Respiratory failure, the patient intubated on mechanical ventilation. Defer respiratory management to Dr. Stew Hopson, Pulmonary Critical Care. 6. Metabolic acidosis secondary to ketosis from diabetic ketoacidosis. This will correct with aggressive hydration and insulin therapy. 7. DVT prophylaxis with heparin subcutaneous. 8. Gastrointestinal prophylaxis with Protonix intravenous. 9. Disposition. At this time, the patient is critically ill, septic shock, diabetic ketoacidosis. The patient is hemodynamically unstable and will need aggressive hydration and insulin therapy with IV pressor support. Pulmonary and Cardiology have been consulted for intensive care treatment along with Endocrinology for diabetic ketoacidosis support. Carlton Guzmán MD DR: Meenakshi JOB#: [id number] CC: ANJELICA
[2017-07-29] MEDS: Insulin Human Regular 100units/ml 3ml IV PRN ×3 (21:11→23:23)
[2017-07-29] MEDS: Insulin Rate Change 1 Each MISC PRN (21:12)
[2017-07-29] MEDS ORDERED: Sodium Bicarbonate 150 ML in D5W 1000ml 1,000 ML IV SCH (22:00)
[2017-07-29] MEDS: Piperacillin/Tazobactam 3.375 GM in NS 110 ML IVPB SCH (22:15)
[2017-07-29] MEDS: Heparin 5000 units/ml inj SUBQ SCH (22:16)
[2017-07-30] VITALS (67 sets, daily range): BP systolic 65–147; BP diastolic 22–63
[2017-07-30] MEDS: Insulin Rate Change 1 Each MISC PRN ×4 (00:04→22:08)
--- NOTE | 2017-07-30 00:30 | Consultation ---
DATE OF CONSULTATION: 07/29/2017 INFECTIOUS DISEASE CONSULTATION CONSULTING PHYSICIAN: Johanny Colbert M.D. REQUESTING PHYSICIAN: Patricio Dacosta M.D. REASON FOR CONSULTATION: Septic shock, abdominal cellulitis, and pharyngitis. Recommendation for antibiotics treatment and management. HISTORY OF PRESENT ILLNESS: The patient is a 46-year-old female with unknown past medical history, who was brought into [facility] emergency room with chief complaint of dizziness. The patient was tachypneic and hyperventilating upon arrival to the emergency room and hypotensive in shock. She was found to have significant lower abdomen redness on her skin. The patient was in respiratory failure and required intubation in the emergency room immediately and central line placement by the ED physician and she was started on pressor. Vancomycin and Zosyn were given empirically and Infectious Disease consultation was requested for further evaluation and management. As of note, the patient is currently intubated and cannot provide any history. History was mainly obtained from the emergency room physician and the medical record. PAST MEDICAL HISTORY: Unknown at this point. PAST SURGICAL HISTORY: Unable to obtain. MEDICATIONS: The patient received vancomycin and Zosyn in the emergency room. For the rest of her medications, please refer to MAR. ALLERGY: She has no known drug allergy as per records. SOCIAL HISTORY: Unable to obtain. REVIEW OF SYSTEMS: Unable to obtain. The patient is intubated. PHYSICAL EXAMINATION: VITAL SIGNS: Temperature 97, pulse 79, respiration 34, blood pressure 103/98, and saturation 99% on FiO2 of 35%. GENERAL: A morbidly obese female, lying in bed, comfortable, intubated on mechanical ventilation, unresponsive, and not in acute distress. HEENT: Normocephalic and atraumatic. Pupils minimally reactive to lights. Unable to assess oral mucosa due to ET tube. NECK: Supple and obese. No lymphadenopathy. CARDIOVASCULAR: She is tachycardic. S1 and S2 normal. LUNGS: She had diminished breathing sounds at the bases. No wheezing or rhonchi. ABDOMEN: Soft and morbidly obese, with significant redness and hardness at the lower aspect with evidence of panniculitis. I could not appreciate any local fluctuation. Redness extend to the groins and perineum too. SKIN: Red, warm, and erythematous in the lower abdomen and perigenital area and perineum. EXTREMITY: Trace edema. No cyanosis. LABORATORY DATA: Labs showed white count of 36.2, hemoglobin of 10.5, and platelet count of 525. BUN of 28 and creatinine of 1.8. Sodium of 118, bicarb of less than 5, and glucose of 868. Urinalysis showed +3 leukocyte esterase, wbc 5 to 10, and few bacteria. IMAGING: CT scan of the abdomen and pelvis without contrast showed skin thickening and subcutaneous inflammatory change involving the left lower anterior abdominal wall most likely related to cellulitis, no well-defined drainable fluid collection to suggest abscess, contracted gallbladder with calcified gallstone, no evidence of acute cholecystitis, thickening of the bladder wall, fibroid uterus, and fatty atrophy of the pancreas. ASSESSMENT AND RECOMMENDATIONS: 1. Cellulitis of the abdominal wall, rule out necrotizing fasciitis and skin abscess. CT scan did not show any drainable fluid. My main concern is necrotizing fasciitis . We will continue vancomycin and Zosyn empiric coverage. Recommend urgent surgical consult for further evaluation of her abdominal skin or possible incision and drainage if needed in the future. Discussed with the emergency room physician. 2. Urinary tract infection. The patient is already on Zosyn. We will send urine culture. 3. Acute pharyngitis with pustules. The patient will be already covered with Zosyn empirically, which will treat her pharyngitis too. 4. Septic shock due to the above. Continue blood pressure support with pressors. We will send blood culture. Start vancomycin and Zosyn empiric coverage. Monitor in intensive care unit. 5. Acute respiratory failure due to the above. Intubated on mechanical ventilation. Recommend Pulmonary consult for further management of her ventilator. Monitor chest x-ray and ABG every day. 6. Acute renal failure due to the above. Continue fluids for hydration and blood pressure support. Monitor urine output. Nephrology is following. 7. Diabetic ketoacidosis due to poorly controlled diabetes and sepsis. Recommend insulin drip and close monitor of blood sugar in the unit to keep blood sugar level between 80 to 120. Thank you for the consult. ID will continue to follow. Johanny Colbert M.D. DR: ABIODUN JOB#: [id number] CC: ANJELICA
[2017-07-30] MEDS: Insulin Human Regular 100units/ml 3ml IV PRN ×14 (01:00→19:02)
--- NOTE | 2017-07-30 01:30 | Consultation ---
DATE OF CONSULTATION: 07/29/2017 CONSULTING PHYSICIAN: Jorge L Longoria M.D. REQUESTING PHYSICIAN: Emergency room physician. REASON FOR CONSULTATION: Erythema of the lower abdomen HISTORY OF PRESENT ILLNESS: This is a 46-year-old apparently [place] female who presented to emergency room earlier today complaining of dizziness and shortness of breath. The patient has rapidly deteriorated and required to be intubated. At this time, the patient is intubated so she cannot give me any history. The history was obtained from the chart and nurses. Apparently for three days, she had been having erythema at the left lower abdomen and she has been seen in an urgent care and was given antibiotic, but this morning, she has been very sick and presented to emergency room. At the emergency room, it was noticed that the patient's blood glucose was over 880. She was tachypneic today and hypotensive and she was acidotic and finally she required to be intubated. At this time, she is in the ICU. Apparently, she did not have any fever. PAST MEDICAL HISTORY: It is not very clear, but currently she is not allergic to any medication and she is not aware that she had diabetes and it was discovered in the emergency room. PAST SURGICAL HISTORY: None. MEDICATION: Antibiotics. SOCIAL HISTORY: This is a 46-year-old [place] female. REVIEW OF SYSTEMS: Unobtainable due to the intubation. PHYSICAL EXAMINATION: GENERAL: The patient appeared to be a well-developed and well-nourished, morbidly obese, 46-year-old female, lying on the bed in the ICU, intubated and agitated. HEENT: She is normocephalic and atraumatic. Eyes, pupils are equal, round, and reactive to light. Mouth is clear. She has ET tube. NECK: There is no palpable thyromegaly or adenopathy. CHEST: Clear to auscultation and percussion. HEART: She is tachycardic. ABDOMEN: Obese and pendulous, but soft. On the left side of the abdomen, she had an area of mild erythema and induration, but it is pinkish color and does not look angry. There is no bulla. There is no blisters or anything. GENITAL: Deferred. EXTREMITIES: She had a small wound on the right leg and right ankle. LABORATORY AND DIAGNOSTIC DATA: CBC has shown WBC of 36,200 with a left shift and 16% bands. Chemistry in the emergency room had shown sodium of 118, glucose of 868, and creatinine of 1.8. CT scan of the abdomen basically is within normal limits except that it has shown cellulitis at the left lower quadrant of the abdomen. ASSESSMENT: 1. Cellulitis of the left lower quadrant of the abdomen, rule out necrotizing fasciitis, although I seriously doubt it. 2. Ketoacidosis. 3. Sepsis. RECOMMENDATION: At this time, the patient is on IV antibiotic and she needs supportive care. I do not see any abscess in this area and I do not see any criteria for necrotizing fasciitis, but I will closely follow the patient with you. Jorge L Longoria M.D. DR: Belinda JOB#: [id number] CC:
--- NOTE | 2017-07-30 02:45 | Consultation ---
DATE OF CONSULTATION: 07/29/2017 CARDIOLOGY CONSULTATION CONSULTING PHYSICIAN: Adama Trujillo M.D. REFERRING PHYSICIAN: Patricio Dacosta M.D. REASON FOR CONSULTATION: Hypotension in a patient with DKA and respiratory failure. HISTORY OF PRESENT ILLNESS: The patient is a 46-year-old lady who was brought to the emergency room for dizziness and lower abdominal redness. She was recently started on antibiotic. The patient was able to speak only 1-2 word sentences per emergency room physician. The patient in the ER, however, was hypotensive with blood pressure of 72/49 and was intubated. At the time of my evaluation, the patient is in the emergency room and intubated and is getting 4 liters of normal saline in view of her diabetic ketoacidosis. REVIEW OF SYSTEMS: Cannot be obtained. PAST MEDICAL HISTORY: Negative. MEDICATIONS: At home is none. diabetes. FAMILY HISTORY: Noncontributory. SOCIAL HISTORY: She lives at home. Does not smoke or drink alcohol. PHYSICAL EXAMINATION: VITAL SIGNS: Blood pressure was 72/49, after fluids 102/98, pulse is 79, respirations 18, and temperature 97 degrees. HEAD AND NECK: Shows no JVD. She is orally intubated. LUNGS: Coarse rhonchi. CARDIOVASCULAR: Regular S1 and S2 with no gallop. ABDOMEN: Cellulitis of the lower abdomen and erythema. EXTREMITIES: There is 1+ pitting edema. LABORATORY AND DIAGNOSTIC DATA: Her labs show white count of 36.2, hemoglobin 10.5, hematocrit 36.4, and platelet count 525. Sodium 118, potassium is 5, bicarbonate less than 5, BUN of 28, creatinine 1.8, and glucose of 868. Calcium is 10.7. Troponin is negative. ProBNP is 5024. ASSESSMENT AND PLAN: 1. Hypotension due to diabetic ketoacidosis. The patient already got 2 liters of IV fluids and is getting 4 more liters. Blood pressure is improving. The patient has also been evaluated by Dr. Colbert and started on broad-spectrum IV antibiotic as well as insulin drip. We will get an echocardiogram to evaluate for ejection fraction and wall motion abnormality. We will completely rule out CA protocol. 2. Diabetic ketoacidosis, on IV fluids and insulin. Bicarbonate was less than 5. 3. Severe hyponatremia, sodium 118, likely due to diabetic ketoacidosis. 4. White count of 36,000, abdominal cellulitis, likely because of the patient's DKA. IV antibiotic per Dr. Colbert. Vancomycin and Zosyn was started and the patient is started on insulin drip and IV fluids. 5. Morbid obesity. 6. Respiratory failure, currently on the ventilator. Thank you very much, Dr. Dacosta, for allowing me to participate in the care of this patient. Please do not hesitate to contact me for any questions regarding my evaluation. Adama Trujillo M.D. DR: CHRISTINE JOB#: [id number] CC:
[2017-07-30 05:33] LABS: HEMOGLOBIN 9.4 G/DL (12.0-16.0); MEAN CORPUSCULAR VOLUME 69 FL (80-99); PLATELET COUNT 375 K/UL (150-450); RED BLOOD COUNT 4.23 M/UL (4.20-5.40); RED CELL DISTRIBUTION WIDTH 15.6 % (11.6-14.8); WHITE BLOOD COUNT 19.9 K/UL (4.8-10.8)
[2017-07-30] MEDS: Piperacillin/Tazobactam 3.375 GM in NS 110 ML IVPB SCH ×3 (05:41→22:01)
[2017-07-30] MEDS: Heparin 5000 units/ml inj SUBQ SCH ×3 (05:42→22:34)
[2017-07-30 05:49] LABS: PHOSPHORUS 1.7 MG/DL (2.5-4.9)
[2017-07-30 06:07] LABS: ANION GAP 19 mmol/L (5-15); BLOOD UREA NITROGEN 39 mg/dL (7-18); CALCIUM 9.6 MG/DL (8.5-10.1); CARBON DIOXIDE 11 MMOL/L (21-32); CHLORIDE 101 MMOL/L (98-107); CREATININE 2.6 MG/DL (0.55-1.30); SODIUM 130 MMOL/L (136-145)
[2017-07-30 06:11] LABS: POTASSIUM 2.4 MMOL/L (3.5-5.1)
[2017-07-30] MEDS ORDERED: Sodium Chloride 500ML 550 ML IV SCH (06:45)
--- NOTE | 2017-07-30 07:18 | Nephrology Progress Note ---
Assessment/Plan Status Narrative 1. SCARLET- Cr up to 2.6 - multifact ATN (sepsis induced inflammotory cytokine prox tub damage/ ishchemic ATN hypotension/vol dep) - continue IV pressor support and IVF's - expect poor UOP for now, hopefully renal recovery prior to needing HD - avoid nephrotoxins 2. DKA- bicarb improved to 11, continue insulin gtt and IVF's per endo 3. Septic Shock- etiology likely from abd cellulitis. Abx mgmt per ID 4. Hypotension- IV pressor support, maintain MAp >65 mmHg 5. Resp FL- intubated on ventilator per PCCm management 6. E- Abn, K+, Phos and Mg being replaced 7. Hyponatremia- correcting, pseudohyponat due to severe hypoglycemia Subjective Date patient seen: July 30, 2017 Time patient seen: 07:13 ROS Limited/Unobtainable: Yes Allergies: Uncoded Allergies: Pennicillin (Allergy, Unknown, 07/29/17) pt received a dose of Zosyn in the ER prior to verification of allergy from the mother All Systems: reviewed and negative except above Subjective Patient remains intubated on the ventilator. On IV pressors and insulin drip Objective Last 24 Hour Vital Signs Date Time Temp Pulse Resp B/P (MAP) Pulse Ox O2 Delivery O2 Flow Rate FiO2 07/30/17 07:00 106 39 35 07/30/17 06:38 98/78 07/30/17 05:06 28 87/41 07/30/17 05:00 34 07/30/17 05:00 87/41 07/30/17 04:45 97 33 87/41 98 Mechanical Ventilator 35 07/30/17 04:40 97 37 35 07/30/17 04:30 97 33 81/32 99 Mechanical Ventilator 35 07/30/17 04:28 95/46 07/30/17 04:15 107 35 95/46 98 Mechanical Ventilator 35 07/30/17 04:00 33 07/30/17 04:00 87/44 07/30/17 04:00 105 07/30/17 04:00 99.1 105 31 93/48 100 Mechanical Ventilator 35 99.1 07/30/17 04:00 35 07/30/17 03:46 97 37 35 07/30/17 03:45 108 31 87/44 100 Mechanical Ventilator 35 5/5/18 03:30 114 34 107/63 100 Mechanical Ventilator 35 5/5/18 03:15 103 34 108/51 100 Mechanical Ventilator 35 5/5/18 03:00 112 35 97/50 100 Mechanical Ventilator 35 5/5/18 02:45 114 35 76/26 100 Mechanical Ventilator 35 5/5/18 02:30 117 31 65/50 100 Mechanical Ventilator 35 5/5/18 02:15 100 35 83/40 100 Mechanical Ventilator 35 5/5/18 02:08 114/54 5/5/18 02:00 114 35 77/40 100 Mechanical Ventilator 35 5/5/18 01:51 97 37 35 5/5/18 01:45 105 37 114/54 100 Mechanical Ventilator 35 5/5/18 01:30 112 38 94/41 100 Mechanical Ventilator 35 5/5/18 01:15 116 35 100/39 100 Mechanical Ventilator 35 5/5/18 01:00 97 37 79/26 100 Mechanical Ventilator 35 5/5/18 00:45 117 30 100/51 100 Mechanical Ventilator 35 5/5/18 00:30 113 33 90/57 100 Mechanical Ventilator 35 5/5/18 00:15 93 36 99/47 99 Mechanical Ventilator 35 5/5/18 00:00 97.5 92 25 92/52 100 Mechanical Ventilator 35 97.5 5/5/18 00:00 35 5/4/18 23:49 75/39 5/4/18 23:45 87 36 76/39 100 Mechanical Ventilator 35 5/4/18 23:32 90 26 35 5/4/18 23:30 88 36 87/49 100 Mechanical Ventilator 35 5/4/18 23:15 88 37 93/46 100 Mechanical Ventilator 35 5/4/18 23:00 88 36 93/56 100 Mechanical Ventilator 35 5/4/18 23:00 88/48 5/4/18 22:45 94 35 88/48 100 Mechanical Ventilator 35 5/4/18 22:39 26 5/4/18 22:30 101 28 117/61 100 Mechanical Ventilator 35 5/4/18 22:15 96 35 112/69 100 Mechanical Ventilator 35 5/4/18 22:00 88 31 95/57 100 Mechanical Ventilator 35 5/4/18 22:00 95/46 5/4/18 21:45 87 31 95/46 100 Mechanical Ventilator 35 5/4/18 21:30 90 30 91/51 100 Mechanical Ventilator 35 5/4/18 21:27 94/65 5/4/18 21:15 92 29 95/62 100 Mechanical Ventilator 35 5/4/18 21:00 80/41 5//18 21:00 93 29 94/65 100 Mechanical Ventilator 35 5/4/18 20:56 76 20 35 5/4/18 20:45 88 30 80/41 100 Mechanical Ventilator 35 5/4/18 20:30 83 30 83/49 100 Mechanical Ventilator 35 5/4/18 20:15 82 30 78/40 100 Mechanical Ventilator 35 5/4/18 20:00 35 5/4/18 20:00 81 5//18 20:00 84/48 5//18 20:00 81 31 84/48 100 Mechanical Ventilator 35 5//18 19:48 76 20 Room Air 35 5//18 19:45 82 31 91/49 100 Mechanical Ventilator 35 5//18 19:36 98.0 76 20 101/59 99 Room Air 15.0 35 518 19:35 76 20 35 5//18 19:30 94.4 84 29 99/59 99 Mechanical Ventilator 35 94.4 5//18 19:00 76 20 101/59 99 Room Air 15.0 35 5//18 18:47 92/45 518 18:42 82/38 5//18 18:37 85/40 5//18 18:32 85/40 5//18 18:27 85/40 5//18 18:22 77/35 5//18 18:17 76/37 5//18 18:12 77/32 5/4/18 18:07 76/35 5/4/18 18:03 75/32 5/4/18 18:00 97.6 83 25 109/60 99 Room Air 15.0 35 97.6 5//18 17:00 83 25 109/60 99 Room Air 15.0 35 5/4/18 16:30 82 25 35 5/4/18 16:30 98.0 85 29 92/60 98 Mechanical Ventilator 15.0 35 98.0 518 16:15 15.0 35 5//18 16:00 86 32 133/107 99 Room Air 5//18 15:04 97.0 79 34 103/98 99 Room Air 97.0 07/29/17 13:02 97.0 100 16 73/49 98 Room Air 97.0 Intake and Output 07/29/17 07/30/17 19:00 07:00 Intake Total 1220 ml 3047.056 ml Output Total 100 ml Balance 1220 ml 2947.056 ml Intake Oral 220 ml 0 ml IV Total 3047.056 ml Other 1000 ml Output Urine Total 50 ml Other 50 ml # Voids 1 Laboratory Tests 07/29/17 13:55: White Blood Count 36.2*H, Red Blood Count 5.09, Hemoglobin 10.5L, Hematocrit 36.4L, Mean Corpuscular Volume 71L, Mean Corpuscular Hemoglobin 20.6L, Mean Corpuscular Hemoglobin Concent 28.9L, Red Cell Distribution Width 16.2H, Platelet Count 525H, Mean Platelet Volume 8.3, Neutrophils (%) (Auto) , Lymphocytes (%) (Auto) , Monocytes (%) (Auto) , Eosinophils (%) (Auto) , Basophils (%) (Auto) , Differential Total Cells Counted 100, Neutrophils % ( Manual) 69, Lymphocytes % (Manual) 10L, Monocytes % (Manual) 5, Eosinophils % ( Manual) 0, Basophils % (Manual) 0, Band Neutrophils 16H, Platelet Estimate IncreasedH, Platelet Morphology , Giant Platelets Occasional, Polychromasia 1+, Hypochromasia 1+, Anisocytosis 1+, Microcytosis 1+, D-Dimer 1.85H, Urine Color Pale yellow, Urine Appearance Clear, Urine pH 5, Urine Specific [place] 1.020, Urine Protein 3+H, Urine Glucose (UA) 4+H, Urine Ketones 3+H, Urine Occult Blood 5+H, Urine Nitrite Negative, Urine Bilirubin Negative, Urine Urobilinogen Normal, Urine Leukocyte Esterase 3+H, Urine RBC 5-10H, Urine WBC 5-10H, Urine Squamous Epithelial Cells ModerateH, Urine Bacteria Few, Urine HCG, Qualitative Negative, Sodium Level 118*L, Potassium Level 5.0, Chloride Level 85L, Carbon Dioxide Level < 5*L, Blood Urea Nitrogen 28H, Creatinine 1.8H, Estimat Glomerular Filtration Rate 30.1, Glucose Level 868*H, Calcium Level 10.7H, Total Bilirubin 0.7, Aspartate Amino Transf (AST/SGOT) 44H, Alanine Aminotransferase (ALT/SGPT) 29, Alkaline Phosphatase 337H, Total Creatine Kinase 159, Creatine Kinase MB 3.3, Creatine Kinase MB Relative Index 2.0, Troponin I 0.000, Pro-B-Type Natriuretic Peptide 5024H, Total Protein 8.3H, Albumin 2.3L, Globulin 6.0, Albumin/Globulin Ratio 0.4L, Lipase 47L, Urine Opiates Screen Negative, Urine Barbiturates Screen Negative, Phencyclidine (PCP ) Screen Negative, Urine Amphetamines Screen Negative, Urine Benzodiazepines Screen Negative, Urine Cocaine Screen Negative, Urine Marijuana (THC) Screen Negative 07/29/17 15:00: Lactic Acid Level 1.10 07/29/17 15:34: Arterial Blood pH 6.830*L, Arterial Blood Partial Pressure CO2 21.0*L, Arterial Blood Partial Pressure O2 108.8H, Arterial Blood HCO3 3.4L, Arterial Blood Oxygen Saturation 95.7, Arterial Blood Base Excess -29.1, Ravi Test Positive 07/29/17 17:52: Arterial Blood pH 6.790*L, Arterial Blood Partial Pressure CO2 29.8L, Arterial Blood Partial Pressure O2 100.5H, Arterial Blood HCO3 4.4L, Arterial Blood Oxygen Saturation 94.4, Arterial Blood Base Excess -28.9, Ravi Test Positive 07/29/17 19:56: Glucose Level 530#*H 07/29/17 20:40: Arterial Blood pH 6.992*L, Arterial Blood Partial Pressure CO2 25.7L, Arterial Blood Partial Pressure O2 110.9H, Arterial Blood HCO3 6.1L, Arterial Blood Oxygen Saturation 97.4, Arterial Blood Base Excess -23.8, Ravi Test Positive 07/30/17 04:50: Glucose Level 231#H, White Blood Count 19.9H, Red Blood Count 4.23, Hemoglobin 9.4L, Hematocrit 29.0L, Mean Corpuscular Volume 69L, Mean Corpuscular Hemoglobin 22.3L, Mean Corpuscular Hemoglobin Concent 32.6, Red Cell Distribution Width 15.6H, Platelet Count 375, Mean Platelet Volume 7.7, Neutrophils (%) (Auto) , Lymphocytes (%) (Auto) , Monocytes (%) (Auto) , Eosinophils (%) (Auto) , Basophils (%) (Auto) , Neutrophils % (Manual) [Pending] , Lymphocytes % (Manual) [Pending], Platelet Estimate [Pending], Platelet Morphology [Pending], Sodium Level 130#L, Potassium Level 2.4#*L, Chloride Level 101, Carbon Dioxide Level 11L, Anion Gap 19H, Blood Urea Nitrogen 39H, Creatinine 2.6H, Estimat Glomerular Filtration Rate 19.7, Hemoglobin A1c 12.6H, Calcium Level 9.6, Phosphorus Level 1.7L, Magnesium Level 1.2L, Troponin I 0.017 , Triglycerides Level 193H, Thyroid Stimulating Hormone (TSH) 1.303, Free Thyroxine 1.23 Height (Feet): 5 Height (Inches): 5.00 Weight (Pounds): 284 General Appearance: WD/WN, other - inubated EENT: PERRL/EOMI, normal ENT inspection Neck: non-tender Cardiovascular: normal rate, regular rhythm Respiratory/Chest: lungs clear Abdomen: normal bowel sounds, non tender, soft Extremities: non-tender Edema: no edema noted Arm (L), no edema noted Arm (R), no edema noted Leg (L), no edema noted Leg (R), no edema noted Pedal (L), no edema noted Pedal (R), no edema noted Generalized Skin: other - abdomen erythematous Carlton Guzmán M.D. July 30, 2017 07:18
[2017-07-30] MEDS ORDERED: Potassium Phosphate 20 MM in NS 275 ML IVPB ONE (08:00)
[2017-07-30] MEDS: Pantoprazole Inj IVP SCH (09:00)
[2017-07-30] MEDS ORDERED: D5W 275ml ONE (10:38)
[2017-07-30] MEDS ORDERED: NS 500ML ONE (10:38)
[2017-07-30] MEDS ORDERED: Tubing Blood Filter IV ONE (10:38)
[2017-07-30] MEDS ORDERED: Insulin Human Regular 100units/ml 3ml IV PRN ×3 (11:00→13:30)
[2017-07-30] MEDS: Sodium Bicarbonate 150 ML in D5W 1000ml 1,000 ML IV SCH ×2 (11:45→16:36)
--- NOTE | 2017-07-30 12:07 | Infectious Diseases Prog Note ---
Assessment/Plan Problems: (1) Cellulitis of abdominal wall Assessment & Plan: continue vancomycin and zosyn empiric coverage, watch out for abscess formation or skin necrosis , surgery is following (2) UTI (urinary tract infection) Assessment & Plan: await urine culture, she is already on zosyn (3) Pharyngitis, acute Assessment & Plan: already on zosyn (4) Septic shock Assessment & Plan: due to the above , await blood culture and continue vancomycin with zosyn empiric coverage , and pressor for blood pressure support (5) Acute respiratory failure Assessment & Plan: due to the above, intubated on mechanical ventilation, business intelligence engineer was consulted for follow up (6) SCARLET (acute kidney injury) Assessment & Plan: due to the above, continue fluids for hydration and blood pressure support, nephrology is following (7) DKA (diabetic ketoacidoses) Assessment & Plan: due to poorly controlled diabetes and sepsis, continue insulin drip in the ICU with close monitor of her blood glucose to keep between 80-120 (8) New onset type 1 diabetes mellitus, uncontrolled Assessment & Plan: recommend dietitian consult and endocrinology eval Subjective ROS Limited/Unobtainable: Yes Allergies: Uncoded Allergies: Pennicillin (Allergy, Unknown, 07/29/17) pt received a dose of Zosyn in the ER prior to verification of allergy from the mother Subjective she was intubated on mechanical ventilation and pressor , responds minimally to verbal commands, has low urine output , on pressor for blood pressure support, has low grad fever. less redness on the lower abdomen and the inner thighs Objective Vital Signs Last 24 Hour Vital Signs Date Time Temp Pulse Resp B/P (MAP) Pulse Ox O2 Delivery O2 Flow Rate FiO2 07/30/17 11:00 94/46 07/30/17 10:55 35 94/46 07/30/17 10:45 104 34 35 07/30/17 10:24 33 99/50 07/30/17 08:47 107 07/30/17 08:40 99.6 97 37 87/41 98 Mechanical Ventilator 15.0 35 99.6 07/30/17 08:40 99.6 97 37 87/41 98 Mechanical Ventilator 15.0 35 99.6 07/30/17 08:39 99.6 97 37 87/41 98 Mechanical Ventilator 15.0 35 99.6 5/5/18 08:37 107 37 35 5/5/18 08:00 35 5/5/18 08:00 32 91/46 5/5/18 08:00 92/56 5/5/18 07:27 97.6 97.6 5/5/18 07:00 106 39 35 5/5/18 05:06 28 87/41 5/5/18 05:00 34 5/5/18 05:00 /41 5/5/18 04:45 97 33 87/41 98 Mechanical Ventilator 35 5/5/18 04:40 97 37 35 5/5/18 04:30 97 33 81/32 99 Mechanical Ventilator 35 5/5/18 04:28 95/46 5/5/18 04:15 107 35 95/46 98 Mechanical Ventilator 35 5/5/18 04:00 33 5/5/18 04:00 87/44 5/5/18 04:00 105 5/5/18 04:00 99.1 105 31 93/48 100 Mechanical Ventilator 35 99.1 5/5/18 04:00 35 5/5/18 03:46 97 37 35 5/5/18 03:45 108 31 87/44 100 Mechanical Ventilator 35 5/5/18 03:30 114 34 107/63 100 Mechanical Ventilator 35 5/5/18 03:15 103 34 108/51 100 Mechanical Ventilator 35 5/5/18 03:00 112 35 97/50 100 Mechanical Ventilator 35 5/5/18 02:45 114 35 76/26 100 Mechanical Ventilator 35 5/5/18 02:30 117 31 65/50 100 Mechanical Ventilator 35 5/5/18 02:15 100 35 83/40 100 Mechanical Ventilator 35 5/5/18 02:08 114/54 5/5/18 02:00 114 35 77/40 100 Mechanical Ventilator 35 5/5/18 01:51 97 37 35 5/5/18 01:45 105 37 114/54 100 Mechanical Ventilator 35 5/5/18 01:30 112 38 94/41 100 Mechanical Ventilator 35 5/5/18 01:15 116 35 100/39 100 Mechanical Ventilator 35 5/5/18 01:00 97 37 79/26 100 Mechanical Ventilator 35 5/5/18 00:45 117 30 100/51 100 Mechanical Ventilator 35 5/5/18 00:30 113 33 90/57 100 Mechanical Ventilator 35 5/5/18 00:15 93 36 99/47 99 Mechanical Ventilator 35 5/5/18 00:00 97.5 92 25 92/52 100 Mechanical Ventilator 35 97.5 5/5/18 00:00 35 5/4/18 23:49 75/39 5/4/18 23:45 87 36 76/39 100 Mechanical Ventilator 35 5/4/18 23:32 90 26 35 5/4/18 23:30 88 36 87/49 100 Mechanical Ventilator 35 5/4/18 23:15 88 37 93/46 100 Mechanical Ventilator 35 5/4/18 23:00 88 36 93/56 100 Mechanical Ventilator 35 5/4/18 23:00 88/48 5/4/18 22:45 94 35 88/48 100 Mechanical Ventilator 35 5/4/18 22:39 26 5/4/18 22:30 101 28 117/61 100 Mechanical Ventilator 35 5/4/18 22:15 96 35 112/69 100 Mechanical Ventilator 35 5/4/18 22:00 88 31 95/57 100 Mechanical Ventilator 35 5/4/18 22:00 95/46 5/4/18 21:45 87 31 95/46 100 Mechanical Ventilator 35 5/4/18 21:30 90 30 91/51 100 Mechanical Ventilator 35 5/4/18 21:27 94/65 5/4/18 21:15 92 29 95/62 100 Mechanical Ventilator 35 5/4/18 21:00 80/41 5/4/18 21:00 93 29 94/65 100 Mechanical Ventilator 35 5/4/18 20:56 76 20 35 5/4/18 20:45 88 30 80/41 100 Mechanical Ventilator 35 5/4/18 20:30 83 30 83/49 100 Mechanical Ventilator 35 5/4/18 20:15 82 30 78/40 100 Mechanical Ventilator 35 5/4/18 20:00 35 5/4/18 20:00 81 5/4/18 20:00 84/48 5/4/18 20:00 81 31 84/48 100 Mechanical Ventilator 35 5/4/18 19:48 76 20 Room Air 35 5/4/18 19:45 82 31 91/49 100 Mechanical Ventilator 35 5/4/18 19:36 98.0 76 20 101/59 99 Room Air 15.0 35 5/4/18 19:35 76 20 35 07/29/17 19:30 94.4 84 29 99/59 99 Mechanical Ventilator 35 94.4 07/29/17 19:00 76 20 101/59 99 Room Air 15.0 35 07/29/17 18:47 92/45 07/29/17 18:42 82/38 07/29/17 18:37 85/40 07/29/17 18:32 85/40 07/29/17 18:27 85/40 07/29/17 18:22 77/35 07/29/17 18:17 76/37 07/29/17 18:12 77/32 07/29/17 18:07 76/35 07/29/17 18:03 75/32 07/29/17 18:00 97.6 83 25 109/60 99 Room Air 15.0 35 97.6 07/29/17 17:00 83 25 109/60 99 Room Air 15.0 35 07/29/17 16:30 82 25 35 07/29/17 16:30 98.0 85 29 92/60 98 Mechanical Ventilator 15.0 35 98.0 07/29/17 16:15 15.0 35 07/29/17 16:00 86 32 133/107 99 Room Air 07/29/17 15:04 97.0 79 34 103/98 99 Room Air 97.0 07/29/17 13:02 97.0 100 16 73/49 98 Room Air 97.0 Height (Feet): 5 Height (Inches): 5.00 Weight (Pounds): 284 General Appearance: WD/WN, no acute distress, other - morbidly obese HEENT: normocephalic, atraumatic, anicteric, supple, no JVD Respiratory/Chest: chest wall non-tender, normal breath sounds, no respiratory distress, no accessory muscle use, decreased breath sounds Cardiovascular: normal peripheral pulses, normal rate, regular rhythm, no gallop/murmur, no JVD Abdomen: soft, non tender, no organomegaly, non distended, no mass, no scars, hypoactive bowel sounds, other - redness with warmth on the lower abdominal skin , extends to the inner thighs and perineal area Genitourinary: normal external genitalia, other - vaginal bleeding Extremities: no cyanosis, no clubbing Skin: no rash, no lesions, no ulcers, other - red, thick and erythematous on the lower abdomend and inner thighs Neurologic/Psychiatric: unresponsiveness Lymphatic: no neck adenopathy, no groin adenopathy Laboratory Tests Test 07/29/17 13:55 07/29/17 15:00 07/29/17 15:34 07/29/17 17:52 White Blood Count 36.2 K/UL (4.8-10.8) *H Red Blood Count 5.09 M/UL (4.20-5.40) Hemoglobin 10.5 G/DL (12.0-16.0) L Hematocrit 36.4 % (37.0-47.0) L Mean Corpuscular Volume 71 FL (80-99) L Mean Corpuscular Hemoglobin 20.6 PG (27.0-31.0) L Mean Corpuscular Hemoglobin Concent 28.9 G/DL (32.0-36.0) L Red Cell Distribution Width 16.2 % (11.6-14.8) H Platelet Count 525 K/UL (150-450) H Mean Platelet Volume 8.3 FL (6.5-10.1) Neutrophils (%) (Auto) % (45.0-75.0) Lymphocytes (%) (Auto) % (20.0-45.0) Monocytes (%) (Auto) % (1.0-10.0) Eosinophils (%) (Auto) % (0.0-3.0) Basophils (%) (Auto) % (0.0-2.0) Differential Total Cells Counted 100 Neutrophils % (Manual) 69 % (45-75) Lymphocytes % (Manual) 10 % (20-45) L Monocytes % (Manual) 5 % (1-10) Eosinophils % (Manual) 0 % (0-3) Basophils % (Manual) 0 % (0-2) Band Neutrophils 16 % (0-8) H Platelet Estimate Increased H Platelet Morphology Giant Platelets Occasional Polychromasia 1+ Hypochromasia 1+ Anisocytosis 1+ Microcytosis 1+ D-Dimer 1.85 mg/L FEU (0.00-0.49) H Urine Color Pale yellow Urine Appearance Clear Urine pH 5 (4.5-8.0) Urine Specific [place] 1.020 (1.005-1.035) Urine Protein 3+ (NEGATIVE) H Urine Glucose (UA) 4+ (NEGATIVE) H Urine Ketones 3+ (NEGATIVE) H Urine Occult Blood 5+ (NEGATIVE) H Urine Nitrite Negative (NEGATIVE) Urine Bilirubin Negative (NEGATIVE) Urine Urobilinogen Normal MG/DL (0.0-1.0) Urine Leukocyte Esterase 3+ (NEGATIVE) H Urine RBC 5-10 /HPF (0 - 2) H Urine WBC 5-10 /HPF (0 - 2) H Urine Squamous Epithelial Cells Moderate /LPF (NONE/OCC) H Urine Bacteria Few /HPF (NONE) Urine HCG, Qualitative Negative (NEGATIVE) Sodium Level 118 MMOL/L (136-145) *L Potassium Level 5.0 MMOL/L (3.5-5.1) Chloride Level 85 MMOL/L (98-107) L Carbon Dioxide Level < 5 MMOL/L (21-32) *L Blood Urea Nitrogen 28 mg/dL (7-18) H Creatinine 1.8 MG/DL (0.55-1.30) H Estimat Glomerular Filtration Rate 30.1 mL/min (>60) Glucose Level 868 MG/DL (74-106) *H Calcium Level 10.7 MG/DL (8.5-10.1) H Total Bilirubin 0.7 MG/DL (0.2-1.0) Aspartate Amino Transf (AST/SGOT) 44 U/L (15-37) H Alanine Aminotransferase (ALT/SGPT) 29 U/L (12-78) Alkaline Phosphatase 337 U/L (46-116) H Total Creatine Kinase 159 U/L (26-308) Creatine Kinase MB 3.3 NG/ML (0.0-3.6) Creatine Kinase MB Relative Index 2.0 Troponin I 0.000 ng/mL (0.000-0.056) Pro-B-Type Natriuretic Peptide 5024 pg/mL (0-125) H Total Protein 8.3 G/DL (6.4-8.2) H Albumin 2.3 G/DL (3.4-5.0) L Globulin 6.0 g/dL Albumin/Globulin Ratio 0.4 (1.0-2.7) L Lipase 47 U/L (73-393) L Urine Opiates Screen Negative (NEGATIVE) Urine Barbiturates Screen Negative (NEGATIVE) Phencyclidine (PCP) Screen Negative (NEGATIVE) Urine Amphetamines Screen Negative (NEGATIVE) Urine Benzodiazepines Screen Negative (NEGATIVE) Urine Cocaine Screen Negative (NEGATIVE) Urine Marijuana (THC) Screen Negative (NEGATIVE) Lactic Acid Level 1.10 mmol/L (0.66-2.22) Arterial Blood pH 6.830 (7.350-7.450) 6.790 (7.350-7.450) Arterial Blood Partial Pressure CO2 21.0 mmHg (35.0-45.0) *L 29.8 mmHg (35.0-45.0) L Arterial Blood Partial Pressure O2 108.8 mmHg (75.0-100.0) H 100.5 mmHg (75.0-100.0) H Arterial Blood HCO3 3.4 mmol/L (22.0-26.0) L 4.4 mmol/L (22.0-26.0) L Arterial Blood Oxygen Saturation 95.7 % (92.0-98.0) 94.4 % (92.0-98.0) Arterial Blood Base Excess -29.1 -28.9 Ravi Test Positive Positive Test 07/29/17 19:56 07/29/17 20:40 07/30/17 04:50 07/30/17 07:00 Glucose Level 530 MG/DL (74-106) #*H 231 MG/DL (74-106) #H Arterial Blood pH 6.992 (7.350-7.450) 7.170 (7.350-7.450) Arterial Blood Partial Pressure CO2 25.7 mmHg (35.0-45.0) L 24.9 mmHg (35.0-45.0) *L Arterial Blood Partial Pressure O2 110.9 mmHg (75.0-100.0) H 114.4 mmHg (75.0-100.0) H Arterial Blood HCO3 6.1 mmol/L (22.0-26.0) L 9.0 mmol/L (22.0-26.0) L Arterial Blood Oxygen Saturation 97.4 % (92.0-98.0) 97.9 % (92.0-98.0) Arterial Blood Base Excess -23.8 -17.8 Ravi Test Positive Positive White Blood Count 19.9 K/UL (4.8-10.8) H Red Blood Count 4.23 M/UL (4.20-5.40) Hemoglobin 9.4 G/DL (12.0-16.0) L Hematocrit 29.0 % (37.0-47.0) L Mean Corpuscular Volume 69 FL (80-99) L Mean Corpuscular Hemoglobin 22.3 PG (27.0-31.0) L Mean Corpuscular Hemoglobin Concent 32.6 G/DL (32.0-36.0) Red Cell Distribution Width 15.6 % (11.6-14.8) H Platelet Count 375 K/UL (150-450) Mean Platelet Volume 7.7 FL (6.5-10.1) Neutrophils (%) (Auto) % (45.0-75.0) Lymphocytes (%) (Auto) % (20.0-45.0) Monocytes (%) (Auto) % (1.0-10.0) Eosinophils (%) (Auto) % (0.0-3.0) Basophils (%) (Auto) % (0.0-2.0) Differential Total Cells Counted 100 Neutrophils % (Manual) 72 % (45-75) Lymphocytes % (Manual) 5 % (20-45) L Monocytes % (Manual) 6 % (1-10) Eosinophils % (Manual) 0 % (0-3) Basophils % (Manual) 0 % (0-2) Band Neutrophils 17 % (0-8) H Platelet Estimate Adequate Platelet Morphology Normal Hypochromasia 1+ Anisocytosis 1+ Microcytosis 1+ Sodium Level 130 MMOL/L (136-145) #L Potassium Level 2.4 MMOL/L (3.5-5.1) #*L Chloride Level 101 MMOL/L (98-107) Carbon Dioxide Level 11 MMOL/L (21-32) L Anion Gap 19 mmol/L (5-15) H Blood Urea Nitrogen 39 mg/dL (7-18) H Creatinine 2.6 MG/DL (0.55-1.30) H Estimat Glomerular Filtration Rate 19.7 mL/min (>60) Hemoglobin A1c 12.6 % (4.3-6.0) H Calcium Level 9.6 MG/DL (8.5-10.1) Phosphorus Level 1.7 MG/DL (2.5-4.9) L Magnesium Level 1.2 MG/DL (1.8-2.4) L Troponin I 0.017 ng/mL (0.000-0.056) Triglycerides Level 193 MG/DL (30-150) H Thyroid Stimulating Hormone (TSH) 1.303 uiU/mL (0.358-3.740) Free Thyroxine 1.23 NG/DL (0.76-1.46) Current Medications Medications (Trade) Dose Ordered Sig/Tommy Route PRN Reason Start Time Stop Time Status Last Admin Dose Admin Dextrose (Dextrose 50%) 25 ml PRN PRN IV HYPOGLYCEMIA 07/30/17 10:30 08/29/17 10:29 Dextrose (Dextrose 50%) 50 ml PRN PRN IV HYPOGLYCEMIA 07/30/17 11:00 08/29/17 10:59 Heparin Sodium (Porcine) (Heparin 5000 units/ml) 5,000 units EVERY 8 HOURS SUBQ 07/29/17 22:00 08/28/17 21:59 07/30/17 05:42 Insulin Human Regular (NovoLIN R) 5 units PRN PRN IV BS 200-299 07/30/17 11:00 08/29/17 10:59 Insulin Human Regular (NovoLIN R) 10 units PRN PRN IV BS=>300 07/30/17 11:00 08/29/17 10:59 Insulin Human Regular 100 units/ Sodium Chloride 101 ml @ 0 mls/hr Q24H IV 07/30/17 11:45 08/29/17 10:59 07/30/17 11:45 Miscellaneous Medication (Insulin Rate Change) 1 ea PRN PRN MISC Hyperglycemia 07/30/17 11:00 08/29/17 10:59 Norepinephrine Bitartrate 8 mg/ Dextrose 250 ml @ 0 mls/hr Q24H IV 07/30/17 08:00 08/29/17 07:59 07/30/17 11:00 Pantoprazole (Protonix) 40 mg DAILY IVP 07/30/17 09:00 08/29/17 08:59 07/30/17 09:00 Piperacillin Sod/ Tazobactam Sod 3.375 gm/Sodium Chloride 110 ml @ 27.5 mls/hr EVERY 8 HOURS IVPB 07/29/17 22:00 08/03/17 21:59 07/30/17 05:41 Potassium Phosphate 20 mm/ Sodium Chloride 281.6667 ml @ 46.944 m... ONCE ONCE IVPB 07/30/17 08:00 07/30/17 13:59 07/30/17 09:09 Propofol 100 ml @ 0 mls/hr Q24H IV 07/30/17 11:00 08/29/17 07:59 07/30/17 10:55 Sodium Bicarbonate 150 ml/Dextrose 1,150 ml @ 75 mls/hr [id number] IV 07/30/17 12:00 08/28/17 11:59 07/30/17 11:45 Sodium Chloride 1,000 ml @ 175 mls/hr [id number] IV 07/30/17 11:00 08/29/17 10:59 07/30/17 10:54 Vancomycin HCl (Vanco rx to dose) 1 ea DAILY PRN MISC Per rx protocol 07/29/17 16:00 08/28/17 15:59 Johanny Colbert M.D. July 30, 2017 12:07
[2017-07-30] MEDS ORDERED: Insulin Rate Change 1 Each MISC PRN (13:30)
--- NOTE | 2017-07-30 14:42 | General Surgery Progress Note ---
General Surgery-Progress Note Objective Last 24 Hour Vital Signs Date Time Temp Pulse Resp B/P (MAP) Pulse Ox O2 Delivery O2 Flow Rate FiO2 07/30/17 14:00 106 34 109/56 100 Mechanical Ventilator 35 5/08/12 13:30 103 33 109/56 98 Mechanical Ventilator 35 5//18 13:01 99.2 99.2 07/30/ 13:00 107 36 109/56 98 Mechanical Ventilator 35 //18 12:53 105 37 35 07/30/18 12:30 102 32 109/56 97 Mechanical Ventilator 35 07/30/ 12:00 35 /08/12 12:00 99.6 104 31 112/48 98 Mechanical Ventilator 35 99.6 07/30/17 12:00 104 07/30/17 11:30 104 33 101/55 99 Mechanical Ventilator 35 07/30/17 11:00 104 32 104/49 99 Mechanical Ventilator 35 07/30/17 11:00 94/46 07/30/17 10:55 35 94/46 07/30/17 10:45 104 34 35 07/30/17 10:30 104 32 100/48 99 Mechanical Ventilator 35 07/30/17 10:24 33 99/50 07/30/17 10:00 102 32 95/52 96 Mechanical Ventilator 35 07/30/17 09:30 104 35 91/46 96 Mechanical Ventilator 35 07/30/17 09:00 102 37 106/45 98 Mechanical Ventilator 35 07/30/17 08:47 107 07/30/17 08:40 99.6 97 37 87/41 98 Mechanical Ventilator 15.0 35 99.6 07/30/17 08:37 107 37 35 07/30/17 08:00 104 33 98/49 86 Mechanical Ventilator 35 07/30/17 08:00 35 07/30/ 08:00 32 91/46 18 08:00 92/56 07/30/17 07:30 113 33 87/55 86 Mechanical Ventilator 35 07/30/17 07:00 106 39 35 // 07:00 100 33 92/41 98 Mechanical Ventilator 35 5/5/18 05:06 28 87/41 5/18 05:00 34 07/30/18 05:00 87/41 5/ 04:45 97 33 87/41 98 Mechanical Ventilator 35 5/5/18 04:40 97 37 35 5/5/18 04:30 97 33 81/32 99 Mechanical Ventilator 35 5/5/18 04:28 95/46 5/5/18 04:15 107 35 95/46 98 Mechanical Ventilator 35 5/5/18 04:00 33 5/5/18 04:00 87/44 5/5/18 04:00 105 5/5/18 04:00 99.1 105 31 93/48 100 Mechanical Ventilator 35 99.1 5/5/18 04:00 35 5/5/18 03:46 97 37 35 5/5/18 03:45 108 31 87/44 100 Mechanical Ventilator 35 5/5/18 03:30 114 34 107/63 100 Mechanical Ventilator 35 5/5/18 03:15 103 34 108/51 100 Mechanical Ventilator 35 5/5/18 03:00 112 35 97/50 100 Mechanical Ventilator 35 5/5/18 02:45 114 35 76/26 100 Mechanical Ventilator 35 5/5/18 02:30 117 31 65/50 100 Mechanical Ventilator 35 5/5/18 02:15 100 35 83/40 100 Mechanical Ventilator 35 5/5/18 02:08 114/54 5/5/18 02:00 114 35 77/40 100 Mechanical Ventilator 35 5/5/18 01:51 97 37 35 5/5/18 01:45 105 37 114/54 100 Mechanical Ventilator 35 5/5/18 01:30 112 38 94/41 100 Mechanical Ventilator 35 5/5/18 01:15 116 35 100/39 100 Mechanical Ventilator 35 5/5/18 01:00 97 37 79/26 100 Mechanical Ventilator 35 5/5/18 00:45 117 30 100/51 100 Mechanical Ventilator 35 5/5/18 00:30 113 33 90/57 100 Mechanical Ventilator 35 5/5/18 00:15 93 36 99/47 99 Mechanical Ventilator 35 5/5/18 00:00 97.5 92 25 92/52 100 Mechanical Ventilator 35 97.5 5/5/18 00:00 35 5/4/18 23:49 75/39 5/4/18 23:45 87 36 76/39 100 Mechanical Ventilator 35 5/4/18 23:32 90 26 35 5/4/18 23:30 88 36 87/49 100 Mechanical Ventilator 35 5/4/18 23:15 88 37 93/46 100 Mechanical Ventilator 35 5/4/18 23:00 88 36 93/56 100 Mechanical Ventilator 35 5/4/18 23:00 88/48 5/4/18 22:45 94 35 88/48 100 Mechanical Ventilator 35 5/4/18 22:39 26 5/4/18 22:30 101 28 117/61 100 Mechanical Ventilator 35 5/4/18 22:15 96 35 112/69 100 Mechanical Ventilator 35 5/4/18 22:00 88 31 95/57 100 Mechanical Ventilator 35 5/4/18 22:00 95/46 5/4/18 21:45 87 31 95/46 100 Mechanical Ventilator 35 5/4/18 21:30 90 30 91/51 100 Mechanical Ventilator 35 5/4/18 21:27 94/65 5/4/18 21:15 92 29 95/62 100 Mechanical Ventilator 35 5/4/18 21:00 80/41 5/4/18 21:00 93 29 94/65 100 Mechanical Ventilator 35 5/4/18 20:56 76 20 35 5/4/18 20:45 88 30 80/41 100 Mechanical Ventilator 35 5/4/18 20:30 83 30 83/49 100 Mechanical Ventilator 35 5/4/18 20:15 82 30 78/40 100 Mechanical Ventilator 35 5/4/18 20:00 35 5/4/18 20:00 81 5/4/18 20:00 84/48 5/4/18 20:00 81 31 84/48 100 Mechanical Ventilator 35 5/4/18 19:48 76 20 Room Air 35 5/4/18 19:45 82 31 91/49 100 Mechanical Ventilator 35 5/4/18 19:36 98.0 76 20 101/59 99 Room Air 15.0 35 5/4/18 19:35 76 20 35 5/4/18 19:30 94.4 84 29 99/59 99 Mechanical Ventilator 35 94.4 5/4/18 19:00 76 20 101/59 99 Room Air 15.0 35 5/4/18 18:47 92/45 5/4/18 18:42 82/38 5/4/18 18:37 85/40 5/4/18 18:32 85/40 5/4/18 18:27 85/40 5/4/18 18:22 77/35 5 18:17 76/37 07/29/17 18:12 77/32 07/29/17 18:07 76/35 07/29/17 18:03 75/32 07/29/17 18:00 97.6 83 25 109/60 99 Room Air 15.0 35 97.6 07/29/17 17:00 83 25 109/60 99 Room Air 15.0 35 07/29/17 16:30 82 25 35 07/29/17 16:30 98.0 85 29 92/60 98 Mechanical Ventilator 15.0 35 98.0 07/29/17 16:15 15.0 35 07/29/17 16:00 86 32 133/107 99 Room Air 07/29/17 15:04 97.0 79 34 103/98 99 Room Air 97.0 I&O Intake and Output 07/29/17 07/30/17 19:00 07:00 Intake Total 1220 ml 3259.406 ml Output Total 105 ml Balance 1220 ml 3154.406 ml Intake Oral 220 ml 0 ml IV Total 3259.406 ml Other 1000 ml Output Urine Total 55 ml Other 50 ml # Voids 1 Respiratory: clear Abdomen: other - obese pendolous erythema lower LLQ and left groin Laboratory Tests Test 07/29/17 15:00 07/29/17 15:34 07/29/17 17:52 07/29/17 19:56 Lactic Acid Level 1.10 mmol/L (0.66-2.22) Arterial Blood pH 6.830 (7.350-7.450) 6.790 (7.350-7.450) Arterial Blood Partial Pressure CO2 21.0 mmHg (35.0-45.0) *L 29.8 mmHg (35.0-45.0) L Arterial Blood Partial Pressure O2 108.8 mmHg (75.0-100.0) H 100.5 mmHg (75.0-100.0) H Arterial Blood HCO3 3.4 mmol/L (22.0-26.0) L 4.4 mmol/L (22.0-26.0) L Arterial Blood Oxygen Saturation 95.7 % (92.0-98.0) 94.4 % (92.0-98.0) Arterial Blood Base Excess -29.1 -28.9 Ravi Test Positive Positive Glucose Level 530 MG/DL (74-106) #*H Test 07/29/17 20:40 07/30/17 04:50 07/30/17 07:00 Arterial Blood pH 6.992 (7.350-7.450) 7.170 (7.350-7.450) Arterial Blood Partial Pressure CO2 25.7 mmHg (35.0-45.0) L 24.9 mmHg (35.0-45.0) *L Arterial Blood Partial Pressure O2 110.9 mmHg (75.0-100.0) H 114.4 mmHg (75.0-100.0) H Arterial Blood HCO3 6.1 mmol/L (22.0-26.0) L 9.0 mmol/L (22.0-26.0) L Arterial Blood Oxygen Saturation 97.4 % (92.0-98.0) 97.9 % (92.0-98.0) Arterial Blood Base Excess -23.8 -17.8 Ravi Test Positive Positive White Blood Count 19.9 K/UL (4.8-10.8) H Red Blood Count 4.23 M/UL (4.20-5.40) Hemoglobin 9.4 G/DL (12.0-16.0) L Hematocrit 29.0 % (37.0-47.0) L Mean Corpuscular Volume 69 FL (80-99) L Mean Corpuscular Hemoglobin 22.3 PG (27.0-31.0) L Mean Corpuscular Hemoglobin Concent 32.6 G/DL (32.0-36.0) Red Cell Distribution Width 15.6 % (11.6-14.8) H Platelet Count 375 K/UL (150-450) Mean Platelet Volume 7.7 FL (6.5-10.1) Neutrophils (%) (Auto) % (45.0-75.0) Lymphocytes (%) (Auto) % (20.0-45.0) Monocytes (%) (Auto) % (1.0-10.0) Eosinophils (%) (Auto) % (0.0-3.0) Basophils (%) (Auto) % (0.0-2.0) Differential Total Cells Counted 100 Neutrophils % (Manual) 72 % (45-75) Lymphocytes % (Manual) 5 % (20-45) L Monocytes % (Manual) 6 % (1-10) Eosinophils % (Manual) 0 % (0-3) Basophils % (Manual) 0 % (0-2) Band Neutrophils 17 % (0-8) H Platelet Estimate Adequate Platelet Morphology Normal Hypochromasia 1+ Anisocytosis 1+ Microcytosis 1+ Sodium Level 130 MMOL/L (136-145) #L Potassium Level 2.4 MMOL/L (3.5-5.1) #*L Chloride Level 101 MMOL/L (98-107) Carbon Dioxide Level 11 MMOL/L (21-32) L Anion Gap 19 mmol/L (5-15) H Blood Urea Nitrogen 39 mg/dL (7-18) H Creatinine 2.6 MG/DL (0.55-1.30) H Estimat Glomerular Filtration Rate 19.7 mL/min (>60) Glucose Level 231 MG/DL (74-106) #H Hemoglobin A1c 12.6 % (4.3-6.0) H Calcium Level 9.6 MG/DL (8.5-10.1) Phosphorus Level 1.7 MG/DL (2.5-4.9) L Magnesium Level 1.2 MG/DL (1.8-2.4) L Troponin I 0.017 ng/mL (0.000-0.056) Triglycerides Level 193 MG/DL (30-150) H Thyroid Stimulating Hormone (TSH) 1.303 uiU/mL (0.358-3.740) Free Thyroxine 1.23 NG/DL (0.76-1.46) Assessment Additional Comments cellulitis abdominal wall septic shock Plan Additional Comments ultrasound of abdominal wall SALBADOR STEWART July 30, 2017 14:42
[2017-07-30] MEDS ORDERED: Sodium Bicarbonate 150 ML in D5W 1000ml 1,000 ML IV SCH (16:00)
--- NOTE | 2017-07-30 16:52 | Cardiac Electrophysiology PN ---
Assessment/Plan Assessment/Plan 1. Septic shock due to diabetic ketoacidosis. The patient already got 6 liters of IV fluids and is getting 175cc/hr NS On broad-spectrum IV antibiotic as well as insulin drip and Levophed 28 mcg. Echocardiogram showed EF 60% .Rule out for MN 2. Diabetic ketoacidosis, on IV fluids and insulin. 3. Severe hyponatremia, sodium 118, likely due to diabetic ketoacidosis.Improved. 4. White count of 36,000, abdominal cellulitis, likely because of the patient's DKA. IV antibiotic per Dr. Colbert. Vancomycin and Zosyn was started and the patient is started on insulin drip and IV fluids. 5. Morbid obesity. 6. Respiratory failure, currently on the ventilator. SLIM RN Subjective Subjective In ICU on vent and 26mcg of Levophed and insulin drip and iv fluids. Very poor urine out put. Objective Last 24 Hour Vital Signs Date Time Temp Pulse Resp B/P (MAP) Pulse Ox O2 Delivery O2 Flow Rate FiO2 07/30/17 16:42 93 32 35 07/30/17 16:00 35 07/30/17 16:00 97 07/30/17 15:41 33 98/50 07/30/17 14:55 105 36 35 07/30/17 14:45 103 36 89/43 97 Mechanical Ventilator 35 07/30/17 14:30 104 36 94/43 96 Mechanical Ventilator 35 07/30/17 14:15 101 34 88/50 99 Mechanical Ventilator 35 07/30/17 14:00 106 34 99/47 100 Mechanical Ventilator 35 07/30/17 13:30 103 33 80/39 98 Mechanical Ventilator 35 07/30/17 13:01 99.2 99.2 07/30/17 13:00 107 36 118/53 98 Mechanical Ventilator 35 07/30/17 12:53 105 37 35 07/30/17 12:30 102 32 109/56 97 Mechanical Ventilator 35 07/30/17 12:00 35 07/30/17 12:00 99.6 104 31 112/48 98 Mechanical Ventilator 35 99.6 07/30/17 12:00 104 07/30/17 11:30 104 33 101/55 99 Mechanical Ventilator 35 07/30/17 11:00 104 32 104/49 99 Mechanical Ventilator 35 07/30/17 11:00 94/46 5/5/18 10:55 35 94/46 5/5/18 10:45 104 34 35 5/5/18 10:30 104 32 100/48 99 Mechanical Ventilator 35 5/5/18 10:24 33 99/50 5/5/18 10:00 102 32 95/52 96 Mechanical Ventilator 35 5/5/18 09:30 104 35 91/46 96 Mechanical Ventilator 35 5/5/18 09:00 102 37 106/45 98 Mechanical Ventilator 35 5/5/18 08:47 107 5/5/18 08:40 99.6 97 37 87/41 98 Mechanical Ventilator 15.0 35 99.6 5/5/18 08:37 107 37 35 5/5/18 08:00 104 33 98/49 86 Mechanical Ventilator 35 5/5/18 08:00 35 5/5/18 08:00 32 91/46 5/5/18 08:00 92/56 5/5/18 07:30 113 33 87/55 86 Mechanical Ventilator 35 5/5/18 07:00 106 39 35 5/5/18 07:00 100 33 92/41 98 Mechanical Ventilator 35 5/5/18 05:06 28 87/41 5/5/18 05:00 34 5/5/18 05:00 87/41 5/5/18 04:45 97 33 87/41 98 Mechanical Ventilator 35 5/5/18 04:40 97 37 35 5/5/18 04:30 97 33 81/32 99 Mechanical Ventilator 35 5/5/18 04:28 95/46 5/5/18 04:15 107 35 95/46 98 Mechanical Ventilator 35 5/5/18 04:00 33 5/5/18 04:00 87/44 5/5/18 04:00 105 5/5/18 04:00 99.1 105 31 93/48 100 Mechanical Ventilator 35 99.1 5/5/18 04:00 35 5/5/18 03:46 97 37 35 5/5/18 03:45 108 31 87/44 100 Mechanical Ventilator 35 5/5/18 03:30 114 34 107/63 100 Mechanical Ventilator 35 5/5/18 03:15 103 34 108/51 100 Mechanical Ventilator 35 5/5/18 03:00 112 35 97/50 100 Mechanical Ventilator 35 5/5/18 02:45 114 35 76/26 100 Mechanical Ventilator 35 5/5/18 02:30 117 31 65/50 100 Mechanical Ventilator 35 5/5/18 02:15 100 35 83/40 100 Mechanical Ventilator 35 5/5/18 02:08 114/54 5/5/18 02:00 114 35 77/40 100 Mechanical Ventilator 35 5/5/18 01:51 97 37 35 5/5/18 01:45 105 37 114/54 100 Mechanical Ventilator 35 5/5/18 01:30 112 38 94/41 100 Mechanical Ventilator 35 5/5/18 01:15 116 35 100/39 100 Mechanical Ventilator 35 5/5/18 01:00 97 37 79/26 100 Mechanical Ventilator 35 5/5/18 00:45 117 30 100/51 100 Mechanical Ventilator 35 5/5/18 00:30 113 33 90/57 100 Mechanical Ventilator 35 5/5/18 00:15 93 36 99/47 99 Mechanical Ventilator 35 5/5/18 00:00 97.5 92 25 92/52 100 Mechanical Ventilator 35 97.5 5/5/18 00:00 35 5/4/18 23:49 75/39 5/4/18 23:45 87 36 76/39 100 Mechanical Ventilator 35 5/4/18 23:32 90 26 35 5/4/18 23:30 88 36 87/49 100 Mechanical Ventilator 35 5/4/18 23:15 88 37 93/46 100 Mechanical Ventilator 35 5/4/18 23:00 88 36 93/56 100 Mechanical Ventilator 35 5/4/18 23:00 88/48 5/4/18 22:45 94 35 88/48 100 Mechanical Ventilator 35 5/4/18 22:39 26 5/4/18 22:30 101 28 117/61 100 Mechanical Ventilator 35 5/4/18 22:15 96 35 112/69 100 Mechanical Ventilator 35 5/4/18 22:00 88 31 95/57 100 Mechanical Ventilator 35 5/4/18 22:00 95/46 5/4/18 21:45 87 31 95/46 100 Mechanical Ventilator 35 5/4/18 21:30 90 30 91/51 100 Mechanical Ventilator 35 5/4/18 21:27 94/65 5/4/18 21:15 92 29 95/62 100 Mechanical Ventilator 35 5/4/18 21:00 80/41 5/4/18 21:00 93 29 94/65 100 Mechanical Ventilator 35 5/4/18 20:56 76 20 35 07/29/17 20:45 88 30 80/41 100 Mechanical Ventilator 35 07/29/17 20:30 83 30 83/49 100 Mechanical Ventilator 35 07/29/17 20:15 82 30 78/40 100 Mechanical Ventilator 35 07/29/17 20:00 35 07/29/17 20:00 81 07/29/17 20:00 84/48 07/29/17 20:00 81 31 84/48 100 Mechanical Ventilator 35 07/29/17 19:48 76 20 Room Air 35 07/29/17 19:45 82 31 91/49 100 Mechanical Ventilator 35 07/29/17 19:36 98.0 76 20 101/59 99 Room Air 15.0 35 07/29/17 19:35 76 20 35 07/29/17 19:30 94.4 84 29 99/59 99 Mechanical Ventilator 35 94.4 07/29/17 19:00 76 20 101/59 99 Room Air 15.0 35 07/29/17 18:47 92/45 07/29/17 18:42 82/38 07/29/17 18:37 85/40 07/29/17 18:32 85/40 07/29/17 18:27 85/40 07/29/17 18:22 77/35 07/29/17 18:17 76/37 07/29/17 18:12 77/32 07/29/17 18:07 76/35 07/29/17 18:03 75/32 07/29/17 18:00 97.6 83 25 109/60 99 Room Air 15.0 35 97.6 07/29/17 17:00 83 25 109/60 99 Room Air 15.0 35 Intake and Output 07/29/17 07/30/17 19:00 07:00 Intake Total 1220 ml 3259.406 ml Output Total 105 ml Balance 1220 ml 3154.406 ml Intake Oral 220 ml 0 ml IV Total 3259.406 ml Other 1000 ml Output Urine Total 55 ml Other 50 ml # Voids 1 Laboratory Tests Test 07/29/17 17:52 07/29/17 19:56 07/29/17 20:40 07/30/17 04:50 Arterial Blood pH 6.790 (7.350-7.450) 6.992 (7.350-7.450) Arterial Blood Partial Pressure CO2 29.8 mmHg (35.0-45.0) L 25.7 mmHg (35.0-45.0) L Arterial Blood Partial Pressure O2 100.5 mmHg (75.0-100.0) H 110.9 mmHg (75.0-100.0) H Arterial Blood HCO3 4.4 mmol/L (22.0-26.0) L 6.1 mmol/L (22.0-26.0) L Arterial Blood Oxygen Saturation 94.4 % (92.0-98.0) 97.4 % (92.0-98.0) Arterial Blood Base Excess -28.9 -23.8 Ravi Test Positive Positive Glucose Level 530 MG/DL (74-106) #*H 231 MG/DL (74-106) #H White Blood Count 19.9 K/UL (4.8-10.8) H Red Blood Count 4.23 M/UL (4.20-5.40) Hemoglobin 9.4 G/DL (12.0-16.0) L Hematocrit 29.0 % (37.0-47.0) L Mean Corpuscular Volume 69 FL (80-99) L Mean Corpuscular Hemoglobin 22.3 PG (27.0-31.0) L Mean Corpuscular Hemoglobin Concent 32.6 G/DL (32.0-36.0) Red Cell Distribution Width 15.6 % (11.6-14.8) H Platelet Count 375 K/UL (150-450) Mean Platelet Volume 7.7 FL (6.5-10.1) Neutrophils (%) (Auto) % (45.0-75.0) Lymphocytes (%) (Auto) % (20.0-45.0) Monocytes (%) (Auto) % (1.0-10.0) Eosinophils (%) (Auto) % (0.0-3.0) Basophils (%) (Auto) % (0.0-2.0) Differential Total Cells Counted 100 Neutrophils % (Manual) 72 % (45-75) Lymphocytes % (Manual) 5 % (20-45) L Monocytes % (Manual) 6 % (1-10) Eosinophils % (Manual) 0 % (0-3) Basophils % (Manual) 0 % (0-2) Band Neutrophils 17 % (0-8) H Platelet Estimate Adequate Platelet Morphology Normal Hypochromasia 1+ Anisocytosis 1+ Microcytosis 1+ Sodium Level 130 MMOL/L (136-145) #L Potassium Level 2.4 MMOL/L (3.5-5.1) #*L Chloride Level 101 MMOL/L (98-107) Carbon Dioxide Level 11 MMOL/L (21-32) L Anion Gap 19 mmol/L (5-15) H Blood Urea Nitrogen 39 mg/dL (7-18) H Creatinine 2.6 MG/DL (0.55-1.30) H Estimat Glomerular Filtration Rate 19.7 mL/min (>60) Hemoglobin A1c 12.6 % (4.3-6.0) H Calcium Level 9.6 MG/DL (8.5-10.1) Phosphorus Level 1.7 MG/DL (2.5-4.9) L Magnesium Level 1.2 MG/DL (1.8-2.4) L Troponin I 0.017 ng/mL (0.000-0.056) Triglycerides Level 193 MG/DL (30-150) H Thyroid Stimulating Hormone (TSH) 1.303 uiU/mL (0.358-3.740) Free Thyroxine 1.23 NG/DL (0.76-1.46) Test 07/30/17 07:00 Arterial Blood pH 7.170 (7.350-7.450) Arterial Blood Partial Pressure CO2 24.9 mmHg (35.0-45.0) *L Arterial Blood Partial Pressure O2 114.4 mmHg (75.0-100.0) H Arterial Blood HCO3 9.0 mmol/L (22.0-26.0) L Arterial Blood Oxygen Saturation 97.9 % (92.0-98.0) Arterial Blood Base Excess -17.8 Ravi Test Positive Objective HEAD AND NECK: Shows no JVD. She is orally intubated. LUNGS: Coarse rhonchi. CARDIOVASCULAR: Regular S1 and S2 with no gallop. ABDOMEN: Cellulitis of the lower abdomen and erythema. EXTREMITIES: There is 1+ pitting edema. Adama Trujillo MD July 30, 2017 16:52
--- NOTE | 2017-07-30 17:18 | Pulmonolgy Critical Care Note ---
Critical Care - Asmt/Plan Assessment/Plan: Patient is a 46 year old woman admitted with abdominal wall cellulitis, severe Diabetic Ketoacidosis, currently intubated and sedated in the ICU On antibiotics per ID Insulin gtt per Endocrine Ventilator rate of 26 to improve Metabolic acidosis compensation as well as starting bicarbonate gtt Will recheck ABG and CXR to assess ETT Problems: (1) Cellulitis of abdominal wall Assessment & Plan: rule out necrotizing fasciitis , will continue vancomycin and zosyn empiric coverage, surgery following (2) UTI (urinary tract infection) Assessment & Plan: urine culture sent, she is already on zosyn (3) Pharyngitis, acute Antibiotics/ID (4) Septic shock Assessment & Plan: due to the above will send blood culture and start vancomycin with zosyn empiric coverage, remains of Levophed (5) Acute respiratory failure Assessment & Plan: due to the above, intubated in ED continue on mechanical ventilation, sedation for RASS -1 (6) SCARLET (acute kidney injury) Assessment & Plan: due to the above, continue fluids for hydration and blood pressure support, nephrology is following (7) DKA (diabetic ketoacidoses)/Hyponatremia Assessment & Plan: due to poorly controlled diabetes and sepsis, recommend insulin drip in the ICU with close monitor of her blood glucose to keep between 80-120 Subjective Allergies: Coded Allergies: No Known Allergies (Unverified , 07/29/17) Objective Vital Signs Last 24 Hour Vital Signs Date Time Temp Pulse Resp B/P (MAP) Pulse Ox O2 Delivery O2 Flow Rate FiO2 07/29/17 16:30 82 25 35 07/29/17 15:04 97.0 79 34 103/98 99 Room Air 97.0 07/29/17 13:02 97.0 100 16 73/49 98 Room Air 97.0 Height (Feet): 5 Height (Inches): 5.00 Weight (Pounds): 250 Patient sedated on the ventilator Obese HEENT: NCAT, PERRL, moist MM Chest: CTAB, equal BS, 8.0 ETT 23cm Heart: HS1, Hs2 RRR Abdomen: Obese, erethematous area lower abdominal wall Extremeties: No rashes MANAGER MONITORING: No focal signs noted, no seizures Laboratory Tests Test 07/29/17 13:55 07/29/17 15:00 07/29/17 15:34 White Blood Count 36.2 K/UL (4.8-10.8) *H Red Blood Count 5.09 M/UL (4.20-5.40) Hemoglobin 10.5 G/DL (12.0-16.0) L Hematocrit 36.4 % (37.0-47.0) L Mean Corpuscular Volume 71 FL (80-99) L Mean Corpuscular Hemoglobin 20.6 PG (27.0-31.0) L Mean Corpuscular Hemoglobin Concent 28.9 G/DL (32.0-36.0) L Red Cell Distribution Width 16.2 % (11.6-14.8) H Platelet Count 525 K/UL (150-450) H Mean Platelet Volume 8.3 FL (6.5-10.1) Neutrophils (%) (Auto) % (45.0-75.0) Lymphocytes (%) (Auto) % (20.0-45.0) Monocytes (%) (Auto) % (1.0-10.0) Eosinophils (%) (Auto) % (0.0-3.0) Basophils (%) (Auto) % (0.0-2.0) Differential Total Cells Counted 100 Neutrophils % (Manual) 69 % (45-75) Lymphocytes % (Manual) 10 % (20-45) L Monocytes % (Manual) 5 % (1-10) Eosinophils % (Manual) 0 % (0-3) Basophils % (Manual) 0 % (0-2) Band Neutrophils 16 % (0-8) H Platelet Estimate Increased H Platelet Morphology Giant Platelets Occasional Polychromasia 1+ Hypochromasia 1+ Anisocytosis 1+ Microcytosis 1+ D-Dimer 1.85 mg/L FEU (0.00-0.49) H Urine Color Pale yellow Urine Appearance Clear Urine pH 5 (4.5-8.0) Urine Specific [place] 1.020 (1.005-1.035) Urine Protein 3+ (NEGATIVE) H Urine Glucose (UA) 4+ (NEGATIVE) H Urine Ketones 3+ (NEGATIVE) H Urine Occult Blood 5+ (NEGATIVE) H Urine Nitrite Negative (NEGATIVE) Urine Bilirubin Negative (NEGATIVE) Urine Urobilinogen Normal MG/DL (0.0-1.0) Urine Leukocyte Esterase 3+ (NEGATIVE) H Urine RBC 5-10 /HPF (0 - 2) H Urine WBC 5-10 /HPF (0 - 2) H Urine Squamous Epithelial Cells Moderate /LPF (NONE/OCC) H Urine Bacteria Few /HPF (NONE) Urine HCG, Qualitative Negative (NEGATIVE) Sodium Level 118 MMOL/L (136-145) *L Potassium Level 5.0 MMOL/L (3.5-5.1) Chloride Level 85 MMOL/L (98-107) L Carbon Dioxide Level < 5 MMOL/L (21-32) *L Blood Urea Nitrogen 28 mg/dL (7-18) H Creatinine 1.8 MG/DL (0.55-1.30) H Estimat Glomerular Filtration Rate 30.1 mL/min (>60) Glucose Level 868 MG/DL (74-106) *H Calcium Level 10.7 MG/DL (8.5-10.1) H Total Bilirubin 0.7 MG/DL (0.2-1.0) Aspartate Amino Transf (AST/SGOT) 44 U/L (15-37) H Alanine Aminotransferase (ALT/SGPT) 29 U/L (12-78) Alkaline Phosphatase 337 U/L (46-116) H Total Creatine Kinase 159 U/L (26-308) Creatine Kinase MB 3.3 NG/ML (0.0-3.6) Creatine Kinase MB Relative Index 2.0 Troponin I 0.000 ng/mL (0.000-0.056) Pro-B-Type Natriuretic Peptide 5024 pg/mL (0-125) H Total Protein 8.3 G/DL (6.4-8.2) H Albumin 2.3 G/DL (3.4-5.0) L Globulin 6.0 g/dL Albumin/Globulin Ratio 0.4 (1.0-2.7) L Lipase 47 U/L (73-393) L Urine Opiates Screen Negative (NEGATIVE) Urine Barbiturates Screen Negative (NEGATIVE) Phencyclidine (PCP) Screen Negative (NEGATIVE) Urine Amphetamines Screen Negative (NEGATIVE) Urine Benzodiazepines Screen Negative (NEGATIVE) Urine Cocaine Screen Negative (NEGATIVE) Urine Marijuana (THC) Screen Negative (NEGATIVE) Lactic Acid Level 1.10 mmol/L (0.66-2.22) Arterial Blood pH 6.830 (7.350-7.450) Arterial Blood Partial Pressure CO2 21.0 mmHg (35.0-45.0) *L Arterial Blood Partial Pressure O2 108.8 mmHg (75.0-100.0) H Arterial Blood HCO3 3.4 mmol/L (22.0-26.0) L Arterial Blood Oxygen Saturation 95.7 % (92.0-98.0) Arterial Blood Base Excess -29.1 Ravi Test Positive Current Medications Medications (Trade) Dose Ordered Sig/Tommy Route PRN Reason Start Time Stop Time Status Last Admin Dose Admin Insulin Human Regular 100 units/ Sodium Chloride 100 ml @ 5 mls/hr Q24H IV 07/29/17 14:15 08/28/17 14:14 Norepinephrine Bitartrate 4 mg/ Dextrose 250 ml @ 0 mls/hr Q24H IV 07/29/17 16:45 08/28/17 16:44 Piperacillin Sod/ Tazobactam Sod 3.375 gm/Sodium Chloride 110 ml @ 27.5 mls/hr EVERY 8 HOURS IVPB 07/29/17 22:00 08/03/17 21:59 Vancomycin HCl (Vanco rx to dose) 1 ea DAILY PRN MISC Per rx protocol 07/29/17 16:00 08/28/17 15:59 Vancomycin HCl 500 mg/Dextrose 110 ml @ 110 mls/hr ONCE ONCE IVPB 07/29/17 18:00 07/29/17 18:59 Critical Care - Objective Last 24 Hour Vital Signs Date Time Temp Pulse Resp B/P (MAP) Pulse Ox O2 Delivery O2 Flow Rate FiO2 07/30/17 17:05 100/53 07/30/17 16:42 93 32 35 07/30/17 16:30 102 36 86/40 93 Mechanical Ventilator 35 07/30/17 16:00 35 07/30/17 16:00 97 07/30/17 16:00 98 36 97/48 100 Mechanical Ventilator 35 07/30/17 15:41 33 98/50 07/30/17 15:30 102 36 87/51 93 Mechanical Ventilator 35 07/30/17 15:00 103 36 87/45 95 Mechanical Ventilator 35 07/30/17 14:55 105 36 35 07/30/17 14:45 103 36 89/43 97 Mechanical Ventilator 35 07/30/17 14:30 104 36 94/43 96 Mechanical Ventilator 35 07/30/17 14:15 101 34 88/50 99 Mechanical Ventilator 35 5/5/18 14:00 106 34 99/47 100 Mechanical Ventilator 35 5/5/18 13:30 103 33 80/39 98 Mechanical Ventilator 35 5/5/18 13:01 99.2 99.2 5/5/18 13:00 107 36 118/53 98 Mechanical Ventilator 35 5/5/18 12:53 105 37 35 5/5/18 12:30 102 32 109/56 97 Mechanical Ventilator 35 5/5/18 12:00 35 5/5/18 12:00 99.6 104 31 112/48 98 Mechanical Ventilator 35 99.6 5/5/18 12:00 104 5/5/18 11:30 104 33 101/55 99 Mechanical Ventilator 35 5/5/18 11:00 104 32 104/49 99 Mechanical Ventilator 35 5/5/18 11:00 94/46 5/5/18 10:55 35 94/46 5/5/18 10:45 104 34 35 5/5/18 10:30 104 32 100/48 99 Mechanical Ventilator 35 5/5/18 10:24 33 99/50 5/5/18 10:00 102 32 95/52 96 Mechanical Ventilator 35 5/5/18 09:30 104 35 91/46 96 Mechanical Ventilator 35 5/5/18 09:00 102 37 106/45 98 Mechanical Ventilator 35 5/5/18 08:47 107 5/5/18 08:40 99.6 97 37 87/41 98 Mechanical Ventilator 15.0 35 99.6 5/5/18 08:37 107 37 35 5/5/18 08:00 104 33 98/49 86 Mechanical Ventilator 35 5/5/18 08:00 35 5/5/18 08:00 32 91/46 5/5/18 08:00 92/56 5/5/18 07:30 113 33 87/55 86 Mechanical Ventilator 35 5/5/18 07:00 106 39 35 5/5/18 07:00 100 33 92/41 98 Mechanical Ventilator 35 5/5/18 05:06 28 87/41 5/5/18 05:00 34 5/5/18 05:00 87/41 5/5/18 04:45 97 33 87/41 98 Mechanical Ventilator 35 5/5/18 04:40 97 37 35 5/5/18 04:30 97 33 81/32 99 Mechanical Ventilator 35 5/5/18 04:28 95/46 5/5/18 04:15 107 35 95/46 98 Mechanical Ventilator 35 5/5/18 04:00 33 5/5/18 04:00 87/44 5/5/18 04:00 105 5/5/18 04:00 99.1 105 31 93/48 100 Mechanical Ventilator 35 99.1 5/5/18 04:00 35 5/5/18 03:46 97 37 35 5/5/18 03:45 108 31 87/44 100 Mechanical Ventilator 35 5/5/18 03:30 114 34 107/63 100 Mechanical Ventilator 35 5/5/18 03:15 103 34 108/51 100 Mechanical Ventilator 35 5/5/18 03:00 112 35 97/50 100 Mechanical Ventilator 35 5/5/18 02:45 114 35 76/26 100 Mechanical Ventilator 35 5/5/18 02:30 117 31 65/50 100 Mechanical Ventilator 35 5/5/18 02:15 100 35 83/40 100 Mechanical Ventilator 35 5/5/18 02:08 114/54 5/5/18 02:00 114 35 77/40 100 Mechanical Ventilator 35 5/5/18 01:51 97 37 35 5/5/18 01:45 105 37 114/54 100 Mechanical Ventilator 35 5/5/18 01:30 112 38 94/41 100 Mechanical Ventilator 35 5/5/18 01:15 116 35 100/39 100 Mechanical Ventilator 35 5/5/18 01:00 97 37 79/26 100 Mechanical Ventilator 35 5/5/18 00:45 117 30 100/51 100 Mechanical Ventilator 35 5/5/18 00:30 113 33 90/57 100 Mechanical Ventilator 35 5/5/18 00:15 93 36 99/47 99 Mechanical Ventilator 35 5/5/18 00:00 97.5 92 25 92/52 100 Mechanical Ventilator 35 97.5 5/5/18 00:00 35 5/4/18 23:49 75/39 5/4/18 23:45 87 36 76/39 100 Mechanical Ventilator 35 5/4/18 23:32 90 26 35 5/4/18 23:30 88 36 87/49 100 Mechanical Ventilator 35 5/4/18 23:15 88 37 93/46 100 Mechanical Ventilator 35 5/4/18 23:00 88 36 93/56 100 Mechanical Ventilator 35 5/4/18 23:00 88/48 5/4/18 22:45 94 35 88/48 100 Mechanical Ventilator 35 5/4/18 22:39 26 5/4/18 22:30 101 28 117/61 100 Mechanical Ventilator 35 5/4/18 22:15 96 35 112/69 100 Mechanical Ventilator 35 5/4/18 22:00 88 31 95/57 100 Mechanical Ventilator 35 5/4/18 22:00 95/46 5/4/18 21:45 87 31 95/46 100 Mechanical Ventilator 35 5/4/18 21:30 90 30 91/51 100 Mechanical Ventilator 35 5/4/18 21:27 94/65 5/4/18 21:15 92 29 95/62 100 Mechanical Ventilator 35 5/4/18 21:00 80/41 5/4/18 21:00 93 29 94/65 100 Mechanical Ventilator 35 5/4/18 20:56 76 20 35 5/4/18 20:45 88 30 80/41 100 Mechanical Ventilator 35 5/4/18 20:30 83 30 83/49 100 Mechanical Ventilator 35 5/4/18 20:15 82 30 78/40 100 Mechanical Ventilator 35 5/4/18 20:00 35 5/4/18 20:00 81 5/4/18 20:00 84/48 5/4/18 20:00 81 31 84/48 100 Mechanical Ventilator 35 5/4/18 19:48 76 20 Room Air 35 5/4/18 19:45 82 31 91/49 100 Mechanical Ventilator 35 5/4/18 19:36 98.0 76 20 101/59 99 Room Air 15.0 35 5/4/18 19:35 76 20 35 5/4/18 19:30 94.4 84 29 99/59 99 Mechanical Ventilator 35 94.4 5/4/18 19:00 76 20 101/59 99 Room Air 15.0 35 5/4/18 18:47 92/45 5/4/18 18:42 82/38 5/4/18 18:37 85/40 5/4/18 18:32 85/40 5/4/18 18:27 85/40 5/4/18 18:22 77/35 5/4/18 18:17 76/37 5/4/18 18:12 77/32 5/07/13 18:07 76/35 07/29/17 18:03 75/32 07/29/17 18:00 97.6 83 25 109/60 99 Room Air 15.0 35 97.6 Accucheck: 184 Critical Care - Subjective ROS Limited/Unobtainable: Yes Condition: critical IV Access: central EKG Rhythm: Sinus Rhythm FI02: 35 Vent Support Breath Rate: 26 Vent Support Mode: AC Vent Tidal Volume: 650 Sputum Amount: None PEEP: 5.0 PIP: 43 I&O: Intake and Output 07/29/17 07/30/17 19:00 07:00 Intake Total 1220 ml 3259.406 ml Output Total 105 ml Balance 1220 ml 3154.406 ml Intake Oral 220 ml 0 ml IV Total 3259.406 ml Other 1000 ml Output Urine Total 55 ml Other 50 ml # Voids 1 ET-Tube: 8.0 ET Position: 22 Marko Chaney M.D. July 30, 2017 17:18
[2017-07-30] MEDS ORDERED: Vancomycin 1.5 GM/D5W 250ML IVPB SCH (20:00)
[2017-07-30] MEDS: Dyna-Hex 2% Top Sol 2oz TOPIC SCH (20:12)
--- NOTE | 2017-07-30 21:00 | Consultation ---
DATE OF CONSULTATION: 07/30/2017 CONSULTING PHYSICIAN: Angel Nye M.D. REQUESTING PHYSICIAN: Patricio Dacosta M.D. REASON FOR CONSULTATION: Diabetic ketoacidosis. HISTORY OF RESENT ILLNESS: It is important to note that most of the history was obtained from review of the medical records since the patient is intubated and not able to provide any history. The patient is a 46-year-old lady without history of diabetes who presented to the hospital with lower abdominal redness and dizziness. She was recently started her on antibiotic and was able to only speak 1 to 2 words sentences. By emergency room physician, she was found to be hypotensive in shock. She was intubated. She was found to be in diabetic ketoacidosis, resuscitated with fluids and admitted to the ICU. Yesterday, I started her on insulin drip. PAST MEDICAL HISTORY: Known history of diabetes. MEDICATIONS: Medications as an outpatient, none. FAMILY HISTORY: Unknown. SOCIAL HISTORY: Unknown. REVIEW OF SYSTEMS: Unobtainable. PHYSICAL EXAMINATION: GENERAL: The patient is intubated and on pressors. VITAL SIGNS: Blood pressure is 87/41, respiratory rate 37, pulse 107, and temperature 99.6. HEENT: Pupils are reactive to light. Sclerae anicteric. Orally intubated. NECK: No JVD. HEART: Tachy. LUNGS: Decreased breath sounds. ABDOMEN: Positive bowel sounds. Erythema on the lower abdomen. EXTREMITIES: Positive for edema. LABORATORY VALUES: WBC 19, hemoglobin 9, hematocrit 29, and platelets of 375. Sodium 130, potassium 2.4, chloride 101, bicarb 11, BUN 39, and creatinine 2.6. Anion gap of 19. Glucose 231, on presentation was over 500. TSH 1.3 and free T4 1.2. Lactic acid 1.1. DIAGNOSES: 1. New onset diabetes. 2. Diabetic ketoacidosis. 3. Lower abdominal cellulitis, most likely necrotizing fasciitis. 4. Pharyngitis. PLAN: 1. Treatment of diabetic ketoacidosis. 2. IV fluids. 3. IV insulin. 4. Broad-spectrum antibiotics. 5. Monitor electrolytes. 6. ICU care 7. We will keep on insulin drip until the gap is closed and until critical condition hopefully resolved. 8. We will follow as an outpatient. Thank you, Dr. Dacosta, for the courtesy of this consultation. Angel Nye M.D. DR: BILL JOB#: [id number] CC: ANJELICA
[2017-07-31] VITALS (75 sets, daily range): BP systolic 74–184; BP diastolic 22–97
[2017-07-31] MEDS: Insulin Rate Change 1 Each MISC PRN ×8 (01:19→16:24)
[2017-07-31] MEDS: Sodium Bicarbonate 150 ML in D5W 1000ml 1,000 ML IV SCH (04:07)
[2017-07-31 05:32] LABS: HEMATOCRIT 26.6 % (37.0-47.0); HEMOGLOBIN 8.5 G/DL (12.0-16.0); MEAN CORPUSCULAR VOLUME 67 FL (80-99); PLATELET COUNT 286 K/UL (150-450); RED BLOOD COUNT 3.99 M/UL (4.20-5.40); RED CELL DISTRIBUTION WIDTH 15.2 % (11.6-14.8); WHITE BLOOD COUNT 12.3 K/UL (4.8-10.8)
[2017-07-31 05:57] LABS: ANION GAP 19 mmol/L (5-15); BLOOD UREA NITROGEN 45 mg/dL (7-18); CALCIUM 8.8 MG/DL (8.5-10.1); CARBON DIOXIDE 12 MMOL/L (21-32); CHLORIDE 101 MMOL/L (98-107); CREATININE 3.5 MG/DL (0.55-1.30); PHOSPHORUS 1.8 MG/DL (2.5-4.9); SODIUM 132 MMOL/L (136-145)
[2017-07-31] MEDS: Piperacillin/Tazobactam 3.375 GM in NS 110 ML IVPB SCH ×3 (06:03→22:03)
[2017-07-31] MEDS: Heparin 5000 units/ml inj SUBQ SCH ×3 (06:13→22:07)
[2017-07-31 06:15] LABS: POTASSIUM 2.7 MMOL/L (3.5-5.1)
[2017-07-31] MEDS ORDERED: Potassium Phosphate 21 MM in NS 275 ML IV ONE (08:00)
--- NOTE | 2017-07-31 08:05 | Nephrology Progress Note ---
Assessment/Plan Assessment/Plan 1. SCARLET- ATN nonresolving up to 3.5 Cr. Ptient now hemodynamically stable. Hopefully renal recovery starts in next 24-48 hours - multifact ATN (sepsis induced inflammotory cytokine prox tub damage/ ishchemic ATN hypotension/vol dep) - expect poor UOP for now, hopefully renal recovery prior to needing HD. Monitor UOP - off IV pressor 2. DKA/Met Acidosis- bicarb improved to 12, continue insulin and IVF's per endo. Component of DKA and hypoperfusion 3. Septic Shock- etiology likely from abd cellulitis. Abx mgmt per ID 4. Hypotension- IV pressor stop. BP improved, maintain MAP >65 mmHg 5. Resp FL- intubated on ventilator per PCC management 6. E- Abn, K+, Phos and Mg being replaced 7. Hyponatremia- correcting, pseudohyponatremia. Na 132 and stable Subjective Date patient seen: July 31, 2017 Time patient seen: 07:54 ROS Limited/Unobtainable: Yes Allergies: Coded Allergies: PENICILLINS (Verified Allergy, Unknown, 07/30/17) According to mother, the patient is allergic to Penicillins Subjective Patient remains intubated on the ventilator. Off pressors and remains on insulin gtt Objective Last 24 Hour Vital Signs Date Time Temp Pulse Resp B/P (MAP) Pulse Ox O2 Delivery O2 Flow Rate FiO2 07/31/17 07:00 90 36 35 07/31/17 07:00 98 35 127/64 100 Mechanical Ventilator 35 07/31/17 06:45 101 35 127/97 100 Mechanical Ventilator 35 07/31/17 06:30 104 35 127/64 100 Mechanical Ventilator 35 07/31/17 06:15 105 35 108/53 100 Mechanical Ventilator 35 07/31/17 06:00 106 35 118/57 100 Mechanical Ventilator 35 07/31/17 05:45 105 35 127/64 100 Mechanical Ventilator 35 07/31/17 05:30 98 35 127/64 100 Mechanical Ventilator 35 07/31/17 05:15 104 35 131/60 100 Mechanical Ventilator 35 07/31/17 05:01 97 35 35 07/31/17 05:00 101 36 130/74 100 Mechanical Ventilator 35 07/31/17 04:45 98 35 121/45 100 Mechanical Ventilator 35 07/31/17 04:30 98 34 116/60 100 Mechanical Ventilator 35 5/6/18 04:15 96 38 111/58 100 Mechanical Ventilator 35 5/6/18 04:06 102/53 5/6/18 04:00 99.5 101 38 102/53 100 Mechanical Ventilator 35 99.5 5/6/18 04:00 35 5/6/18 04:00 97 5/6/18 03:45 101 38 106/49 100 Mechanical Ventilator 35 5/6/18 03:30 101 38 117/37 100 Mechanical Ventilator 35 5/6/18 03:15 101 38 129/46 100 Mechanical Ventilator 35 5/6/18 03:08 97 35 35 5/6/18 03:00 99 37 125/43 99 Mechanical Ventilator 35 5/6/18 02:45 101 38 117/37 100 Mechanical Ventilator 35 5/6/18 02:30 100 37 113/48 100 Mechanical Ventilator 35 5/6/18 02:15 99 34 117/37 100 Mechanical Ventilator 35 5/6/18 02:00 87 34 124/57 100 Mechanical Ventilator 35 5/6/18 01:15 34 94/31 5/6/18 01:00 90 34 35 5/6/18 00:45 90 34 97/53 100 Mechanical Ventilator 35 5/6/18 00:30 94 36 94/22 100 Mechanical Ventilator 35 5/6/18 00:16 99 36 124/33 100 Mechanical Ventilator 35 5/6/18 00:00 99.6 98 36 116/46 100 Mechanical Ventilator 35 99.6 5/5/18 23:45 94 36 92/22 100 Mechanical Ventilator 35 5/5/18 23:32 100 36 35 5/5/18 23:30 99 36 124/33 100 Mechanical Ventilator 35 5/5/18 23:15 102 36 115/37 99 Mechanical Ventilator 35 5/5/18 23:00 101 36 120/44 100 Mechanical Ventilator 35 5/5/18 22:45 104 36 115/37 100 Mechanical Ventilator 35 5/5/18 22:30 102 36 125/33 100 Mechanical Ventilator 35 5/5/18 22:15 102 36 119/40 100 Mechanical Ventilator 35 5/5/18 22:00 104 36 129/40 100 Mechanical Ventilator 35 5/5/18 21:45 102 36 115/37 100 Mechanical Ventilator 35 5/5/18 21:30 97 36 96/46 100 Mechanical Ventilator 35 5/5/18 21:23 103 36 35 5/5/18 21:15 103 36 120/51 100 Mechanical Ventilator 35 5/5/18 21:03 89/49 5/5/18 21:00 103 36 89/49 100 Mechanical Ventilator 35 5/5/18 20:45 104 36 103/46 100 Mechanical Ventilator 35 5/5/18 20:30 103 36 103/46 100 Mechanical Ventilator 35 5/5/18 20:00 107 5/5/18 20:00 99.6 107 36 100/59 100 Mechanical Ventilator 35 99.6 5/5/18 20:00 35 5/5/18 19:45 108 37 101/58 100 Mechanical Ventilator 35 5/5/18 19:30 108 37 125/57 100 Mechanical Ventilator 35 5/5/18 19:15 106 37 113/59 100 Mechanical Ventilator 35 5/5/18 19:00 106 33 35 5/5/18 19:00 104 36 126/58 100 Mechanical Ventilator 35 5/5/18 18:58 33 147/62 5/5/18 18:45 106 36 147/62 100 Mechanical Ventilator 35 5/5/18 18:30 103 34 132/60 100 Mechanical Ventilator 35 5/5/18 18:00 103 32 99/45 100 Mechanical Ventilator 35 5/5/18 17:30 98 31 99/49 100 Mechanical Ventilator 35 5/5/18 17:05 100/53 5/5/18 17:00 30 95/45 5/5/18 17:00 99.3 99 31 103/51 100 Mechanical Ventilator 35 99.3 5/5/18 16:42 93 32 35 5/5/18 16:30 102 36 86/40 93 Mechanical Ventilator 35 5/5/18 16:00 35 5/5/18 16:00 97 5/5/18 16:00 98 36 97/48 100 Mechanical Ventilator 35 5/5/18 15:41 33 98/50 5/5/18 15:30 102 36 87/51 93 Mechanical Ventilator 35 5/5/18 15:00 103 36 87/45 95 Mechanical Ventilator 35 5/5/18 14:55 105 36 35 5/5/18 14:45 103 36 89/43 97 Mechanical Ventilator 35 5/5/18 14:30 104 36 94/43 96 Mechanical Ventilator 35 5/5/18 14:15 101 34 88/50 99 Mechanical Ventilator 35 07/30/17 14:00 106 34 99/47 100 Mechanical Ventilator 35 07/30/17 13:30 103 33 80/39 98 Mechanical Ventilator 35 07/30/17 13:01 99.2 99.2 07/30/17 13:00 107 36 118/53 98 Mechanical Ventilator 35 07/30/17 12:53 105 37 35 07/30/17 12:30 102 32 109/56 97 Mechanical Ventilator 35 07/30/17 12:00 35 07/30/17 12:00 99.6 104 31 112/48 98 Mechanical Ventilator 35 99.6 07/30/17 12:00 104 07/30/17 11:30 104 33 101/55 99 Mechanical Ventilator 35 07/30/17 11:00 104 32 104/49 99 Mechanical Ventilator 35 07/30/17 11:00 94/46 07/30/17 10:55 35 94/46 07/30/17 10:45 104 34 35 07/30/17 10:30 104 32 100/48 99 Mechanical Ventilator 35 07/30/17 10:24 33 99/50 07/30/17 10:00 102 32 95/52 96 Mechanical Ventilator 35 07/30/17 09:30 104 35 91/46 96 Mechanical Ventilator 35 07/30/17 09:00 102 37 106/45 98 Mechanical Ventilator 35 07/30/17 08:47 107 07/30/17 08:40 99.6 97 37 87/41 98 Mechanical Ventilator 15.0 35 99.6 07/30/17 08:37 107 37 35 07/30/17 08:00 104 33 98/49 86 Mechanical Ventilator 35 07/30/17 08:00 35 07/30/17 08:00 32 91/46 07/30/17 08:00 92/56 Intake and Output 07/30/17 07/31/17 19:00 07:00 Intake Total 3452.002 ml 3507.885 ml Output Total 30 ml 35 ml Balance 3422.002 ml 3472.885 ml Intake Oral 0 ml 0 ml IV Total 3452.002 ml 3507.885 ml Output Urine Total 30 ml 35 ml Laboratory Tests 07/30/17 17:50: Random Vancomycin Level 14.7 07/31/17 04:55: White Blood Count 12.3H, Red Blood Count 3.99L, Hemoglobin 8.5L, Hematocrit 26.6L, Mean Corpuscular Volume 67L, Mean Corpuscular Hemoglobin 21.3L, Mean Corpuscular Hemoglobin Concent 32.0, Red Cell Distribution Width 15.2H, Platelet Count 286, Mean Platelet Volume 8.1, Neutrophils (%) (Auto) , Lymphocytes (%) (Auto) , Monocytes (%) (Auto) , Eosinophils (%) (Auto) , Basophils (%) (Auto) , Differential Total Cells Counted 100, Neutrophils % ( Manual) 72, Lymphocytes % (Manual) 11L, Monocytes % (Manual) 6, Eosinophils % ( Manual) 0, Basophils % (Manual) 0, Band Neutrophils 11H, Platelet Estimate Adequate, Platelet Morphology Normal, Hypochromasia 1+, Anisocytosis 1+, Microcytosis 2+, Sodium Level 132L, Potassium Level 2.7*L, Chloride Level 101, Carbon Dioxide Level 12L, Anion Gap 19H, Blood Urea Nitrogen 45H, Creatinine 3.5H, Estimat Glomerular Filtration Rate 13.9, Glucose Level 174H, Calcium Level 8.8, Phosphorus Level 1.8L, Magnesium Level 1.6L 07/31/17 07:00: Arterial Blood pH 7.312L, Arterial Blood Partial Pressure CO2 26.4L, Arterial Blood Partial Pressure O2 167.2H, Arterial Blood HCO3 13.1L, Arterial Blood Oxygen Saturation 99.0H, Arterial Blood Base Excess -11.9, Ravi Test Positive Height (Feet): 5 Height (Inches): 5.00 Weight (Pounds): 295 General Appearance: WD/WN, no apparent distress EENT: PERRL/EOMI, normal ENT inspection Neck: non-tender, normal alignment Cardiovascular: normal peripheral pulses, normal rate Respiratory/Chest: chest wall non-tender, lungs clear, normal breath sounds Abdomen: normal bowel sounds, non tender Edema: no edema noted Arm (L), no edema noted Arm (R), no edema noted Leg (L), no edema noted Leg (R), no edema noted Pedal (L), no edema noted Pedal (R), no edema noted Generalized Carlton Guzmán M.D. July 31, 2017 08:04
[2017-07-31] MEDS: Pantoprazole Inj IVP SCH (09:21)
[2017-07-31] MEDS: Acetaminophen 650 MG SUPP RECTAL PRN (10:22)
--- NOTE | 2017-07-31 10:55 | General Progress Note ---
Assessment/Plan Problem List: (1) Cellulitis of abdominal wall ICD Codes: L03.311 - Cellulitis of abdominal wall SNOMED: 99121036 (2) Acute respiratory failure ICD Codes: J96.00 - Acute respiratory failure, unspecified whether with hypoxia or hypercapnia SNOMED: 19815912 (3) New onset type 1 diabetes mellitus, uncontrolled ICD Codes: E10.65 - Type 1 diabetes mellitus with hyperglycemia SNOMED: 238005832 (4) Necrotizing fasciitis ICD Codes: M72.6 - Necrotizing fasciitis SNOMED: 21646594 (5) DKA (diabetic ketoacidoses) ICD Codes: E13.10 - Other specified diabetes mellitus with ketoacidosis without coma SNOMED: 55088932, [id number] Assessment/Plan remained in critical condition AG still open continue insulin gtt reduce BG monitoring to every 2 hours monitor electrolytes and replete Subjective ROS Limited/Unobtainable: Yes Allergies: Coded Allergies: PENICILLINS (Verified Allergy, Unknown, 07/30/17) According to mother, the patient is allergic to Penicillins Subjective intubated in icu back on pressors Objective Last 24 Hour Vital Signs Date Time Temp Pulse Resp B/P (MAP) Pulse Ox O2 Delivery O2 Flow Rate FiO2 07/31/17 10:39 100 33 35 18 10:22 100.0 07/31/17 09:53 36 116/50 07/31/17 08:57 99 33 35 07/31/18 08:30 95 35 100/59 95 Mechanical Ventilator 35 07/31/17 08:00 100.2 96 35 100/59 95 Mechanical Ventilator 35 100.2 07/31/17 08:00 35 18 07:30 35 18 07:30 99 34 113/55 93 Mechanical Ventilator 35 07/31/17 07:00 90 36 35 /6/18 07:00 98 35 127/64 100 Mechanical Ventilator 35 07/31/18 06:45 101 35 127/97 100 Mechanical Ventilator 35 18 06:30 104 35 127/64 100 Mechanical Ventilator 35 /6/18 06:15 105 35 108/53 100 Mechanical Ventilator 35 /6/18 06:00 106 35 118/57 100 Mechanical Ventilator 35 //18 05:45 105 35 127/64 100 Mechanical Ventilator 35 18 05:30 98 35 127/64 100 Mechanical Ventilator 35 5/6/18 05:15 104 35 131/60 100 Mechanical Ventilator 35 5/6/18 05:01 97 35 35 5/6/18 05:00 101 36 130/74 100 Mechanical Ventilator 35 5/6/18 04:45 98 35 121/45 100 Mechanical Ventilator 35 5/6/18 04:30 98 34 116/60 100 Mechanical Ventilator 35 5/6/18 04:15 96 38 111/58 100 Mechanical Ventilator 35 5/6/18 04:06 102/53 5/6/18 04:00 99.5 101 38 102/53 100 Mechanical Ventilator 35 99.5 5/6/18 04:00 35 5/6/18 04:00 97 5/6/18 03:45 101 38 106/49 100 Mechanical Ventilator 35 5/6/18 03:30 101 38 117/37 100 Mechanical Ventilator 35 5/6/18 03:15 101 38 129/46 100 Mechanical Ventilator 35 5/6/18 03:08 97 35 35 5/6/18 03:00 99 37 125/43 99 Mechanical Ventilator 35 5/6/18 02:45 101 38 117/37 100 Mechanical Ventilator 35 5/6/18 02:30 100 37 113/48 100 Mechanical Ventilator 35 5/6/18 02:15 99 34 117/37 100 Mechanical Ventilator 35 5/6/18 02:00 87 34 124/57 100 Mechanical Ventilator 35 5/6/18 01:15 34 94/31 5/6/18 01:00 90 34 35 5/6/18 00:45 90 34 97/53 100 Mechanical Ventilator 35 5/6/18 00:30 94 36 94/22 100 Mechanical Ventilator 35 5/6/18 00:16 99 36 124/33 100 Mechanical Ventilator 35 5/6/18 00:00 99.6 98 36 116/46 100 Mechanical Ventilator 35 99.6 5/5/18 23:45 94 36 92/22 100 Mechanical Ventilator 35 5/5/18 23:32 100 36 35 5/5/18 23:30 99 36 124/33 100 Mechanical Ventilator 35 5/5/18 23:15 102 36 115/37 99 Mechanical Ventilator 35 5/5/18 23:00 101 36 120/44 100 Mechanical Ventilator 35 5/5/18 22:45 104 36 115/37 100 Mechanical Ventilator 35 5/5/18 22:30 102 36 125/33 100 Mechanical Ventilator 35 5/5/18 22:15 102 36 119/40 100 Mechanical Ventilator 35 5/5/18 22:00 104 36 129/40 100 Mechanical Ventilator 35 5/5/18 21:45 102 36 115/37 100 Mechanical Ventilator 35 5/5/18 21:30 97 36 96/46 100 Mechanical Ventilator 35 5/5/18 21:23 103 36 35 5/5/18 21:15 103 36 120/51 100 Mechanical Ventilator 35 5/5/18 21:03 89/49 5/5/18 21:00 103 36 89/49 100 Mechanical Ventilator 35 5/5/18 20:45 104 36 103/46 100 Mechanical Ventilator 35 5/5/18 20:30 103 36 103/46 100 Mechanical Ventilator 35 5/5/18 20:00 107 5/5/18 20:00 99.6 107 36 100/59 100 Mechanical Ventilator 35 99.6 5/5/18 20:00 35 5/5/18 19:45 108 37 101/58 100 Mechanical Ventilator 35 5/5/18 19:30 108 37 125/57 100 Mechanical Ventilator 35 5/5/18 19:15 106 37 113/59 100 Mechanical Ventilator 35 5/5/18 19:00 106 33 35 5/5/18 19:00 104 36 126/58 100 Mechanical Ventilator 35 5/5/18 18:58 33 147/62 5/5/18 18:45 106 36 147/62 100 Mechanical Ventilator 35 5/5/18 18:30 103 34 132/60 100 Mechanical Ventilator 35 5/5/18 18:00 103 32 99/45 100 Mechanical Ventilator 35 5/5/18 17:30 98 31 99/49 100 Mechanical Ventilator 35 5/5/18 17:05 100/53 5/5/18 17:00 30 95/45 5/5/18 17:00 99.3 99 31 103/51 100 Mechanical Ventilator 35 99.3 5/5/18 16:42 93 32 35 5/5/18 16:30 102 36 86/40 93 Mechanical Ventilator 35 5/5/18 16:00 35 5/5/18 16:00 97 5/5/18 16:00 98 36 97/48 100 Mechanical Ventilator 35 5/5/18 15:41 33 98/50 5/5/18 15:30 102 36 87/51 93 Mechanical Ventilator 35 07/30/17 15:00 103 36 87/45 95 Mechanical Ventilator 35 07/30/17 14:55 105 36 35 07/30/17 14:45 103 36 89/43 97 Mechanical Ventilator 35 07/30/17 14:30 104 36 94/43 96 Mechanical Ventilator 35 07/30/17 14:15 101 34 88/50 99 Mechanical Ventilator 35 07/30/17 14:00 106 34 99/47 100 Mechanical Ventilator 35 07/30/17 13:30 103 33 80/39 98 Mechanical Ventilator 35 07/30/17 13:01 99.2 99.2 07/30/17 13:00 107 36 118/53 98 Mechanical Ventilator 35 07/30/17 12:53 105 37 35 07/30/17 12:30 102 32 109/56 97 Mechanical Ventilator 35 07/30/17 12:00 35 07/30/17 12:00 99.6 104 31 112/48 98 Mechanical Ventilator 35 99.6 07/30/17 12:00 104 07/30/17 11:30 104 33 101/55 99 Mechanical Ventilator 35 07/30/17 11:00 104 32 104/49 99 Mechanical Ventilator 35 07/30/17 11:00 94/46 07/30/17 10:55 35 94/46 Intake and Output 07/30/17 07/31/17 19:00 07:00 Intake Total 3452.002 ml 3617.885 ml Output Total 30 ml 35 ml Balance 3422.002 ml 3582.885 ml Intake Oral 0 ml 0 ml IV Total 3452.002 ml 3617.885 ml Output Urine Total 30 ml 35 ml Laboratory Tests 07/30/17 17:50: Random Vancomycin Level 14.7 07/31/17 04:55: White Blood Count 12.3H, Red Blood Count 3.99L, Hemoglobin 8.5L, Hematocrit 26.6L, Mean Corpuscular Volume 67L, Mean Corpuscular Hemoglobin 21.3L, Mean Corpuscular Hemoglobin Concent 32.0, Red Cell Distribution Width 15.2H, Platelet Count 286, Mean Platelet Volume 8.1, Neutrophils (%) (Auto) , Lymphocytes (%) (Auto) , Monocytes (%) (Auto) , Eosinophils (%) (Auto) , Basophils (%) (Auto) , Differential Total Cells Counted 100, Neutrophils % ( Manual) 72, Lymphocytes % (Manual) 11L, Monocytes % (Manual) 6, Eosinophils % ( Manual) 0, Basophils % (Manual) 0, Band Neutrophils 11H, Platelet Estimate Adequate, Platelet Morphology Normal, Hypochromasia 1+, Anisocytosis 1+, Microcytosis 2+, Sodium Level 132L, Potassium Level 2.7*L, Chloride Level 101, Carbon Dioxide Level 12L, Anion Gap 19H, Blood Urea Nitrogen 45H, Creatinine 3.5H, Estimat Glomerular Filtration Rate 13.9, Glucose Level 174H, Calcium Level 8.8, Phosphorus Level 1.8L, Magnesium Level 1.6L 07/31/17 07:00: Arterial Blood pH 7.312L, Arterial Blood Partial Pressure CO2 26.4L, Arterial Blood Partial Pressure O2 167.2H, Arterial Blood HCO3 13.1L, Arterial Blood Oxygen Saturation 99.0H, Arterial Blood Base Excess -11.9, Ravi Test Positive Height (Feet): 5 Height (Inches): 5.00 Weight (Pounds): 295 General Appearance: severe distress EENT: other - ETT Neck: normal alignment Cardiovascular: tachycardia Respiratory/Chest: decreased breath sounds Abdomen: normal bowel sounds Edema: 1+ Arm (L), 1+ Arm (R), 1+ Leg (L), 1+ Leg (R), 1+ Pedal (L), 1+ Pedal ( R), 1+ Generalized Objective Current Medications Medications (Trade) Dose Ordered Sig/Tommy Route PRN Reason Start Time Stop Time Status Last Admin Dose Admin Acetaminophen (Tylenol) 650 mg EVERY 6 HOURS PRN RECTAL Mild Pain (Pain Scale 1-3) 07/30/17 17:54 08/29/17 17:53 07/31/17 10:22 Chlorhexidine Gluconate (Idalia-Hex 2%) 1 applic DAILY@1999 TOPIC 07/30/17 20:00 08/29/17 19:59 07/30/17 20:12 Dextrose (Dextrose 50%) 25 ml PRN PRN IV HYPOGLYCEMIA 07/30/17 10:30 08/29/17 10:29 Dextrose (Dextrose 50%) 50 ml PRN PRN IV HYPOGLYCEMIA 07/30/17 11:00 08/29/17 10:59 Heparin Sodium (Porcine) (Heparin 5000 units/ml) 5,000 units EVERY 8 HOURS SUBQ 07/29/17 22:00 08/28/17 21:59 07/31/17 06:13 Insulin Human Regular (NovoLIN R) 5 units PRN PRN IV BS 200-299 07/30/17 11:00 08/29/17 10:59 07/30/17 19:02 Insulin Human Regular (NovoLIN R) 10 units PRN PRN IV BS=>300 07/30/17 11:00 08/29/17 10:59 Insulin Human Regular 100 units/ Sodium Chloride 101 ml @ 0 mls/hr Q24H IV 07/30/17 14:00 08/29/17 13:59 07/31/17 06:11 Miscellaneous Medication (Insulin Rate Change) 1 ea PRN PRN MISC Hyperglycemia 07/30/17 11:00 08/29/17 10:59 07/31/17 10:06 Norepinephrine Bitartrate 8 mg/ Dextrose 250 ml @ 0 mls/hr Q24H IV 07/30/17 08:00 08/29/17 07:59 07/31/17 04:06 Pantoprazole (Protonix) 40 mg DAILY IVP 07/30/17 09:00 08/29/17 08:59 07/31/17 09:21 Piperacillin Sod/ Tazobactam Sod 3.375 gm/Sodium Chloride 110 ml @ 27.5 mls/hr EVERY 8 HOURS IVPB 07/29/17 22:00 08/03/17 21:59 07/31/17 06:03 Potassium Phosphate 21 mm/ Sodium Chloride 282 ml @ 47 mls/hr ONCE ONCE IV 07/31/17 08:00 07/31/17 13:59 07/31/17 08:01 Propofol 100 ml @ 0 mls/hr Q24H IV 07/30/17 11:00 08/29/17 07:59 07/31/17 09:53 Sodium Bicarbonate 150 ml/Dextrose 1,150 ml @ 75 mls/hr [id number] IV 07/30/17 12:00 08/28/17 11:59 07/31/17 04:07 Sodium Chloride 1,000 ml @ 100 mls/hr Q10H IV 07/31/17 07:00 08/29/17 06:59 07/31/17 08:01 Vancomycin HCl (Vanco rx to dose) 1 ea DAILY PRN MISC Per rx protocol 07/29/17 16:00 08/28/17 15:59 Item Value Date Time Bedside Blood Glucose 157 mg/dl H 07/31/17 1006 Bedside Blood Glucose 162 mg/dl H 07/31/17 0611 Bedside Blood Glucose 154 mg/dl H 07/31/17 0200 Bedside Blood Glucose 184 mg/dl H 07/30/17 2208 Bedside Blood Glucose 220 mg/dl H 07/30/17 1828 Bedside Blood Glucose 222 mg/dl H 07/30/17 1408 SAQIB TOM July 31, 2017 10:55
--- NOTE | 2017-07-31 11:26 | Cardiology Report ---
APPROVED REPORT EXAM: Two-dimensional and M-mode echocardiogram with Doppler and color Doppler. INDICATION Congestive Heart Failure M-Mode DIMENSIONS IVSd1.3 (0.7-1.1cm)Left Atrium (MM)4.0 (1.6-4.0cm) LVDd4.3 (3.5-5.6cm)Aortic Root2.5 (2.0-3.7cm) PWd1.0 (0.7-1.1cm)Aortic Cusp Exc.2.0 (1.5-2.0cm) LVDs1.3 (2.5-4.0cm) PWs1.9 cm Technically difficult study due to patient on ventilator. Study quality precludes accurate assessment of regional wall motion. Normal left ventricular chamber size, systolic function and wall motion. Left ventricular ejection fraction estimated to be 60-65 %. Mild left ventricular hypertrophy. Anterior Echo-free space, may be due to pericardial fat or effusion. All other cardiac chamber sizes are within normal limits. Normal appearing aortic, mitral and tricuspid valves. Pulmonic valve not well visualized. Mild mitral annulus and aortic root calcification. IVC dilated at 1.9 cm with physiological collapse. A color flow and spectral Doppler study was performed and revealed: No aortic insufficiency. Pressure gradient may be elevated due to hyperdynamic systolic function. Mild mitral regurgitation. Mitral diastolic velocities suggest mild left ventricular diastolic dysfunction (Grade I). Mild tricuspid regurgitation. Tricuspid systolic velocities suggests peak right ventricular systolic pressure of 57 mmHg, consistent with moderate pulmonary hypertension. No pulmonic regurgitation present.
--- NOTE | 2017-07-31 11:48 | Cardiology Report ---
APPROVED REPORT EKG Measurement Heart [id number] OR 150P66 [id number] Sinus tachycardia Possible Inferior infarct, age undetermined Cannot rule out Anterior infarct, age undetermined Prolonged QT Abnormal ECG
--- NOTE | 2017-07-31 11:57 | Cardiology Report ---
APPROVED REPORT EKG Measurement Heart [id number] VA 174P58 [id number] Normal sinus rhythm Low voltage QRS Cannot rule out Anterior infarct, age undetermined Abnormal ECG
[2017-07-31] MEDS: Insulin Human Regular 100units/ml 3ml IV PRN (11:58)
[2017-07-31 14:23] LABS: HEMATOCRIT 24.2 % (37.0-47.0); HEMOGLOBIN 7.8 G/DL (12.0-16.0); MEAN CORPUSCULAR VOLUME 66 FL (80-99); PLATELET COUNT 224 K/UL (150-450); RED BLOOD COUNT 3.65 M/UL (4.20-5.40); WHITE BLOOD COUNT 11.7 K/UL (4.8-10.8)
--- NOTE | 2017-07-31 14:26 | Cardiac Electrophysiology PN ---
Assessment/Plan Assessment/Plan 1. Septic shock due to diabetic ketoacidosis. The patient already got 6 liters of IV fluids and is getting 175cc/hr NS On broad-spectrum IV antibiotic as well as insulin drip . Levophed DCed today Echocardiogram showed EF 60% .Rule out for [place] 2. Diabetic ketoacidosis, on IV fluids and insulin. 3. Severe hyponatremia, sodium 118, likely due to diabetic ketoacidosis.Improved. 4. White count of 36,000, abdominal cellulitis, likely because of the patient's DKA. IV antibiotic per Dr. Colbert. Vancomycin and Zosyn was started and the patient is started on insulin drip and IV fluids. 5. Morbid obesity. 6. Respiratory failure, currently on the ventilator. SLIM RN Subjective Subjective In ICU on vent and off Levophed Objective Last 24 Hour Vital Signs Date Time Temp Pulse Resp B/P (MAP) Pulse Ox O2 Delivery O2 Flow Rate FiO2 07/31/17 13:00 106 33 112/50 96 Mechanical Ventilator 35 07/31/17 12:45 109 32 115/63 97 Mechanical Ventilator 35 07/31/17 12:32 96 33 35 07/31/17 12:30 111 33 111/66 98 Mechanical Ventilator 35 07/31/17 12:09 99.5 07/31/17 12:00 35 07/31/17 12:00 99.5 105 35 134/53 100 Mechanical Ventilator 35 99.5 07/31/17 11:45 101 35 131/63 100 Mechanical Ventilator 35 07/31/17 11:30 94 34 131/70 100 Mechanical Ventilator 35 07/31/17 11:15 82 34 125/66 100 Mechanical Ventilator 35 07/31/17 11:00 80 34 126/67 100 Mechanical Ventilator 35 18 10:56 77/52 18 10:45 80 34 74/31 100 Mechanical Ventilator 35 07/31/17 10:39 100 33 35 18 10:30 93 33 90/31 99 Mechanical Ventilator 35 07/31/17 10:22 100.0 18 10:00 100.0 103 35 116/57 99 Mechanical Ventilator 35 100.0 07/31/17 09:53 36 116/50 07/31/17 09:30 104 34 117/59 98 Mechanical Ventilator 35 07/31/17 09:00 101 35 107/61 98 Mechanical Ventilator 35 5/6/18 08:57 99 33 35 5/6/18 08:30 95 35 100/59 95 Mechanical Ventilator 35 5/6/18 08:00 100.2 96 35 100/59 95 Mechanical Ventilator 35 100.2 5/6/18 08:00 35 5/6/18 08:00 98 5/6/18 07:30 35 5/6/18 07:30 99 34 113/55 93 Mechanical Ventilator 35 5/6/18 07:00 90 36 35 5/6/18 07:00 98 35 127/64 100 Mechanical Ventilator 35 5/6/18 06:45 101 35 127/97 100 Mechanical Ventilator 35 5/6/18 06:30 104 35 127/64 100 Mechanical Ventilator 35 5/6/18 06:15 105 35 108/53 100 Mechanical Ventilator 35 5/6/18 06:00 106 35 118/57 100 Mechanical Ventilator 35 5/6/18 05:45 105 35 127/64 100 Mechanical Ventilator 35 5/6/18 05:30 98 35 127/64 100 Mechanical Ventilator 35 5/6/18 05:15 104 35 131/60 100 Mechanical Ventilator 35 5/6/18 05:01 97 35 35 5/6/18 05:00 101 36 130/74 100 Mechanical Ventilator 35 5/6/18 04:45 98 35 121/45 100 Mechanical Ventilator 35 5/6/18 04:30 98 34 116/60 100 Mechanical Ventilator 35 5/6/18 04:15 96 38 111/58 100 Mechanical Ventilator 35 5/6/18 04:06 102/53 5/6/18 04:00 99.5 101 38 102/53 100 Mechanical Ventilator 35 99.5 5/6/18 04:00 35 5/6/18 04:00 97 5/6/18 03:45 101 38 106/49 100 Mechanical Ventilator 35 5/6/18 03:30 101 38 117/37 100 Mechanical Ventilator 35 5/6/18 03:15 101 38 129/46 100 Mechanical Ventilator 35 5/6/18 03:08 97 35 35 5/6/18 03:00 99 37 125/43 99 Mechanical Ventilator 35 5/6/18 02:45 101 38 117/37 100 Mechanical Ventilator 35 5/6/18 02:30 100 37 113/48 100 Mechanical Ventilator 35 5/6/18 02:15 99 34 117/37 100 Mechanical Ventilator 35 5/6/18 02:00 87 34 124/57 100 Mechanical Ventilator 35 5/6/18 01:15 34 94/31 5/6/18 01:00 90 34 35 5/6/18 00:45 90 34 97/53 100 Mechanical Ventilator 35 5/6/18 00:30 94 36 94/22 100 Mechanical Ventilator 35 5/6/18 00:16 99 36 124/33 100 Mechanical Ventilator 35 5/6/18 00:00 99.6 98 36 116/46 100 Mechanical Ventilator 35 99.6 5/5/18 23:45 94 36 92/22 100 Mechanical Ventilator 35 5/5/18 23:32 100 36 35 5/5/18 23:30 99 36 124/33 100 Mechanical Ventilator 35 5/5/18 23:15 102 36 115/37 99 Mechanical Ventilator 35 5/5/18 23:00 101 36 120/44 100 Mechanical Ventilator 35 5/5/18 22:45 104 36 115/37 100 Mechanical Ventilator 35 5/5/18 22:30 102 36 125/33 100 Mechanical Ventilator 35 5/5/18 22:15 102 36 119/40 100 Mechanical Ventilator 35 5/5/18 22:00 104 36 129/40 100 Mechanical Ventilator 35 5/5/18 21:45 102 36 115/37 100 Mechanical Ventilator 35 5/5/18 21:30 97 36 96/46 100 Mechanical Ventilator 35 5/5/18 21:23 103 36 35 5/5/18 21:15 103 36 120/51 100 Mechanical Ventilator 35 5/5/18 21:03 89/49 5/5/18 21:00 103 36 89/49 100 Mechanical Ventilator 35 5/5/18 20:45 104 36 103/46 100 Mechanical Ventilator 35 5/5/18 20:30 103 36 103/46 100 Mechanical Ventilator 35 5/5/18 20:00 107 5/5/18 20:00 99.6 107 36 100/59 100 Mechanical Ventilator 35 99.6 5/5/18 20:00 35 5/5/18 19:45 108 37 101/58 100 Mechanical Ventilator 35 5/5/18 19:30 108 37 125/57 100 Mechanical Ventilator 35 5/5/18 19:15 106 37 113/59 100 Mechanical Ventilator 35 5/5/18 19:00 106 33 35 5/5/18 19:00 104 36 126/58 100 Mechanical Ventilator 35 07/30/17 18:58 33 147/62 07/30/17 18:45 106 36 147/62 100 Mechanical Ventilator 35 07/30/17 18:30 103 34 132/60 100 Mechanical Ventilator 35 07/30/17 18:00 103 32 99/45 100 Mechanical Ventilator 35 07/30/17 17:30 98 31 99/49 100 Mechanical Ventilator 35 07/30/17 17:05 100/53 07/30/17 17:00 30 95/45 07/30/17 17:00 99.3 99 31 103/51 100 Mechanical Ventilator 35 99.3 07/30/17 16:42 93 32 35 07/30/17 16:30 102 36 86/40 93 Mechanical Ventilator 35 07/30/17 16:00 35 07/30/17 16:00 97 07/30/17 16:00 98 36 97/48 100 Mechanical Ventilator 35 07/30/17 15:41 33 98/50 07/30/17 15:30 102 36 87/51 93 Mechanical Ventilator 35 07/30/17 15:00 103 36 87/45 95 Mechanical Ventilator 35 07/30/17 14:55 105 36 35 07/30/17 14:45 103 36 89/43 97 Mechanical Ventilator 35 07/30/17 14:30 104 36 94/43 96 Mechanical Ventilator 35 Intake and Output 07/30/17 07/31/17 19:00 07:00 Intake Total 3452.002 ml 3617.885 ml Output Total 30 ml 35 ml Balance 3422.002 ml 3582.885 ml Intake Oral 0 ml 0 ml IV Total 3452.002 ml 3617.885 ml Output Urine Total 30 ml 35 ml Laboratory Tests Test 07/30/17 17:50 07/31/17 04:55 07/31/17 07:00 07/31/17 13:45 Random Vancomycin Level 14.7 ug/mL White Blood Count 12.3 K/UL (4.8-10.8) H 11.7 K/UL (4.8-10.8) H Red Blood Count 3.99 M/UL (4.20-5.40) L 3.65 M/UL (4.20-5.40) L Hemoglobin 8.5 G/DL (12.0-16.0) L 7.8 G/DL (12.0-16.0) L Hematocrit 26.6 % (37.0-47.0) L 24.2 % (37.0-47.0) L Mean Corpuscular Volume 67 FL (80-99) L 66 FL (80-99) L Mean Corpuscular Hemoglobin 21.3 PG (27.0-31.0) L 21.4 PG (27.0-31.0) L Mean Corpuscular Hemoglobin Concent 32.0 G/DL (32.0-36.0) 32.3 G/DL (32.0-36.0) Red Cell Distribution Width 15.2 % (11.6-14.8) H 15.0 % (11.6-14.8) H Platelet Count 286 K/UL (150-450) 224 K/UL (150-450) Mean Platelet Volume 8.1 FL (6.5-10.1) 7.3 FL (6.5-10.1) Neutrophils (%) (Auto) % (45.0-75.0) % (45.0-75.0) Lymphocytes (%) (Auto) % (20.0-45.0) % (20.0-45.0) Monocytes (%) (Auto) % (1.0-10.0) % (1.0-10.0) Eosinophils (%) (Auto) % (0.0-3.0) % (0.0-3.0) Basophils (%) (Auto) % (0.0-2.0) % (0.0-2.0) Differential Total Cells Counted 100 Neutrophils % (Manual) 72 % (45-75) Pending Lymphocytes % (Manual) 11 % (20-45) L Pending Monocytes % (Manual) 6 % (1-10) Eosinophils % (Manual) 0 % (0-3) Basophils % (Manual) 0 % (0-2) Band Neutrophils 11 % (0-8) H Platelet Estimate Adequate Pending Platelet Morphology Normal Pending Hypochromasia 1+ Anisocytosis 1+ Microcytosis 2+ Sodium Level 132 MMOL/L (136-145) L Potassium Level 2.7 MMOL/L (3.5-5.1) *L Pending Chloride Level 101 MMOL/L (98-107) Carbon Dioxide Level 12 MMOL/L (21-32) L Anion Gap 19 mmol/L (5-15) H Blood Urea Nitrogen 45 mg/dL (7-18) H Creatinine 3.5 MG/DL (0.55-1.30) H Estimat Glomerular Filtration Rate 13.9 mL/min (>60) Glucose Level 174 MG/DL (74-106) H Calcium Level 8.8 MG/DL (8.5-10.1) Phosphorus Level 1.8 MG/DL (2.5-4.9) L Pending Magnesium Level 1.6 MG/DL (1.8-2.4) L Arterial Blood pH 7.312 (7.350-7.450) Arterial Blood Partial Pressure CO2 26.4 mmHg (35.0-45.0) L Arterial Blood Partial Pressure O2 167.2 mmHg (75.0-100.0) H Arterial Blood HCO3 13.1 mmol/L (22.0-26.0) L Arterial Blood Oxygen Saturation 99.0 % (92.0-98.0) H Arterial Blood Base Excess -11.9 Ravi Test Positive Test 07/31/17 14:00 Arterial Blood pH 7.214 (7.350-7.450) Arterial Blood Partial Pressure CO2 35.5 mmHg (35.0-45.0) Arterial Blood Partial Pressure O2 182.6 mmHg (75.0-100.0) H Arterial Blood HCO3 14.0 mmol/L (22.0-26.0) L Arterial Blood Oxygen Saturation 98.7 % (92.0-98.0) H Arterial Blood Base Excess -12.8 Ravi Test Positive Microbiology Date/Time Source Procedure Growth Status 07/29/17 14:45 Blood Blood Culture - Preliminary NO GROWTH AFTER 24 HOURS Resulted 07/29/17 14:30 Blood Blood Culture - Preliminary NO GROWTH AFTER 24 HOURS Resulted 07/29/17 18:30 Nasal Nares MRSA Culture - Final NO METHICILLIN RESISTANT STAPH AUREUS... Complete 07/29/17 21:00 Leg Left Gram Stain - Final Resulted 07/29/17 21:00 Wound Culture - Preliminary Gram Negative Bacillus 1 Resulted 07/29/17 17:05 Rectum VRE Culture - Final NO VANCOMYCIN RESISTANT ENTEROCOCCUS ... Complete Objective HEAD AND NECK: Shows no JVD. She is orally intubated. LUNGS: Coarse rhonchi. CARDIOVASCULAR: Regular S1 and S2 with no gallop. ABDOMEN: Cellulitis of the lower abdomen and erythema. EXTREMITIES: There is 1+ pitting edema. Adama Trujillo MD July 31, 2017 14:26
[2017-07-31 14:29] LABS: PHOSPHORUS 3.1 MG/DL (2.5-4.9)
[2017-07-31 14:30] LABS: POTASSIUM 2.7 MMOL/L (3.5-5.1)
[2017-07-31 15:33] LABS: ANION GAP 20 mmol/L (5-15); BLOOD UREA NITROGEN 49 mg/dL (7-18); CALCIUM 8.7 MG/DL (8.5-10.1); CARBON DIOXIDE 12 MMOL/L (21-32); CHLORIDE 102 MMOL/L (98-107); POTASSIUM 3.1 MMOL/L (3.5-5.1); SODIUM 134 MMOL/L (136-145)
[2017-07-31] MEDS ORDERED: Tubing IV Secondary IV ONE (16:10)
--- NOTE | 2017-07-31 16:18 | General Surgery Progress Note ---
General Surgery-Progress Note Subjective Symptoms: worse Objective Last 24 Hour Vital Signs Date Time Temp Pulse Resp B/P (MAP) Pulse Ox O2 Delivery O2 Flow Rate FiO2 5/6/18 15:01 91 35 35 5/6/18 13:00 106 33 112/50 96 Mechanical Ventilator 35 5/6/18 12:45 109 32 115/63 97 Mechanical Ventilator 35 5/6/18 12:32 96 33 35 5/6/18 12:30 111/66 5/6/18 12:30 111 33 111/66 98 Mechanical Ventilator 35 5/6/18 12:15 134/74 5/6/18 12:09 99.5 5/6/18 12:00 35 5/6/18 12:00 134/53 5/6/18 12:00 99.5 105 35 134/53 100 Mechanical Ventilator 35 99.5 5/6/18 11:45 101 35 131/63 100 Mechanical Ventilator 35 5/6/18 11:30 131/70 5/6/18 11:30 94 34 131/70 100 Mechanical Ventilator 35 5/6/18 11:15 82 34 125/66 100 Mechanical Ventilator 35 5/6/18 11:00 126/67 5/6/18 11:00 80 34 126/67 100 Mechanical Ventilator 35 5/6/18 10:56 77/52 5/6/18 10:45 80 34 74/31 100 Mechanical Ventilator 35 5/6/18 10:39 100 33 35 5/6/18 10:30 93 33 90/31 99 Mechanical Ventilator 35 5/6/18 10:22 100.0 5/6/18 10:00 100.0 103 35 116/57 99 Mechanical Ventilator 35 100.0 5/6/18 09:53 36 116/50 5/6/18 09:30 104 34 117/59 98 Mechanical Ventilator 35 5/6/18 09:00 101 35 107/61 98 Mechanical Ventilator 35 5/6/18 08:57 99 33 35 5/6/18 08:30 95 35 100/59 95 Mechanical Ventilator 35 5/6/18 08:00 100.2 96 35 100/59 95 Mechanical Ventilator 35 100.2 5/6/18 08:00 35 5/6/18 08:00 98 5/6/18 07:30 35 5/6/18 07:30 99 34 113/55 93 Mechanical Ventilator 35 5/6/18 07:00 90 36 35 5/6/18 07:00 98 35 127/64 100 Mechanical Ventilator 35 5/6/18 06:45 101 35 127/97 100 Mechanical Ventilator 35 5/6/18 06:30 104 35 127/64 100 Mechanical Ventilator 35 5/6/18 06:15 105 35 108/53 100 Mechanical Ventilator 35 5/6/18 06:00 106 35 118/57 100 Mechanical Ventilator 35 5/6/18 05:45 105 35 127/64 100 Mechanical Ventilator 35 5/6/18 05:30 98 35 127/64 100 Mechanical Ventilator 35 5/6/18 05:15 104 35 131/60 100 Mechanical Ventilator 35 5/6/18 05:01 97 35 35 5/6/18 05:00 101 36 130/74 100 Mechanical Ventilator 35 5/6/18 04:45 98 35 121/45 100 Mechanical Ventilator 35 5/6/18 04:30 98 34 116/60 100 Mechanical Ventilator 35 5/6/18 04:15 96 38 111/58 100 Mechanical Ventilator 35 5/6/18 04:06 102/53 5/6/18 04:00 99.5 101 38 102/53 100 Mechanical Ventilator 35 99.5 5/6/18 04:00 35 5/6/18 04:00 97 5/6/18 03:45 101 38 106/49 100 Mechanical Ventilator 35 5/6/18 03:30 101 38 117/37 100 Mechanical Ventilator 35 5/6/18 03:15 101 38 129/46 100 Mechanical Ventilator 35 5/6/18 03:08 97 35 35 5/6/18 03:00 99 37 125/43 99 Mechanical Ventilator 35 5/6/18 02:45 101 38 117/37 100 Mechanical Ventilator 35 5/6/18 02:30 100 37 113/48 100 Mechanical Ventilator 35 5/6/18 02:15 99 34 117/37 100 Mechanical Ventilator 35 5/6/18 02:00 87 34 124/57 100 Mechanical Ventilator 35 5/6/18 01:15 34 94/31 5/6/18 01:00 90 34 35 5/6/18 00:45 90 34 97/53 100 Mechanical Ventilator 35 5/6/18 00:30 94 36 94/22 100 Mechanical Ventilator 35 5/6/18 00:16 99 36 124/33 100 Mechanical Ventilator 35 5/6/18 00:00 99.6 98 36 116/46 100 Mechanical Ventilator 35 99.6 5/5/18 23:45 94 36 92/22 100 Mechanical Ventilator 35 5/5/18 23:32 100 36 35 5/5/18 23:30 99 36 124/33 100 Mechanical Ventilator 35 5/5/18 23:15 102 36 115/37 99 Mechanical Ventilator 35 5/5/18 23:00 101 36 120/44 100 Mechanical Ventilator 35 5/5/18 22:45 104 36 115/37 100 Mechanical Ventilator 35 5/5/18 22:30 102 36 125/33 100 Mechanical Ventilator 35 5/5/18 22:15 102 36 119/40 100 Mechanical Ventilator 35 5/5/18 22:00 104 36 129/40 100 Mechanical Ventilator 35 5/5/18 21:45 102 36 115/37 100 Mechanical Ventilator 35 5/5/18 21:30 97 36 96/46 100 Mechanical Ventilator 35 5/5/18 21:23 103 36 35 5/5/18 21:15 103 36 120/51 100 Mechanical Ventilator 35 5/5/18 21:03 89/49 5/5/18 21:00 103 36 89/49 100 Mechanical Ventilator 35 5/5/18 20:45 104 36 103/46 100 Mechanical Ventilator 35 5/5/18 20:30 103 36 103/46 100 Mechanical Ventilator 35 5/5/18 20:00 107 5/5/18 20:00 99.6 107 36 100/59 100 Mechanical Ventilator 35 99.6 5/5/18 20:00 35 5/5/18 19:45 108 37 101/58 100 Mechanical Ventilator 35 5/5/18 19:30 108 37 125/57 100 Mechanical Ventilator 35 5/5/18 19:15 106 37 113/59 100 Mechanical Ventilator 35 5/5/18 19:00 106 33 35 5/5/18 19:00 104 36 126/58 100 Mechanical Ventilator 35 5/5/18 18:58 33 147/62 5/5/18 18:45 106 36 147/62 100 Mechanical Ventilator 35 5/5/18 18:30 103 34 132/60 100 Mechanical Ventilator 35 5/5/18 18:00 103 32 99/45 100 Mechanical Ventilator 35 5/5/18 17:30 98 31 99/49 100 Mechanical Ventilator 35 5/5/18 17:05 100/53 5/5/18 17:00 30 95/45 07/30/17 17:00 99.3 99 31 103/51 100 Mechanical Ventilator 35 99.3 07/30/17 16:42 93 32 35 07/30/17 16:30 102 36 86/40 93 Mechanical Ventilator 35 I&O Intake and Output 07/30/17 07/31/17 19:00 07:00 Intake Total 3452.002 ml 3617.885 ml Output Total 30 ml 35 ml Balance 3422.002 ml 3582.885 ml Intake Oral 0 ml 0 ml IV Total 3452.002 ml 3617.885 ml Output Urine Total 30 ml 35 ml Respiratory: clear Abdomen: other - obese erythema lower left side has increased has edema ultrasound no abscess Laboratory Tests Test 07/30/17 17:50 07/31/17 04:55 07/31/17 07:00 07/31/17 13:45 Random Vancomycin Level 14.7 ug/mL White Blood Count 12.3 K/UL (4.8-10.8) H 11.7 K/UL (4.8-10.8) H Red Blood Count 3.99 M/UL (4.20-5.40) L 3.65 M/UL (4.20-5.40) L Hemoglobin 8.5 G/DL (12.0-16.0) L 7.8 G/DL (12.0-16.0) L Hematocrit 26.6 % (37.0-47.0) L 24.2 % (37.0-47.0) L Mean Corpuscular Volume 67 FL (80-99) L 66 FL (80-99) L Mean Corpuscular Hemoglobin 21.3 PG (27.0-31.0) L 21.4 PG (27.0-31.0) L Mean Corpuscular Hemoglobin Concent 32.0 G/DL (32.0-36.0) 32.3 G/DL (32.0-36.0) Red Cell Distribution Width 15.2 % (11.6-14.8) H 15.0 % (11.6-14.8) H Platelet Count 286 K/UL (150-450) 224 K/UL (150-450) Mean Platelet Volume 8.1 FL (6.5-10.1) 7.3 FL (6.5-10.1) Neutrophils (%) (Auto) % (45.0-75.0) % (45.0-75.0) Lymphocytes (%) (Auto) % (20.0-45.0) % (20.0-45.0) Monocytes (%) (Auto) % (1.0-10.0) % (1.0-10.0) Eosinophils (%) (Auto) % (0.0-3.0) % (0.0-3.0) Basophils (%) (Auto) % (0.0-2.0) % (0.0-2.0) Differential Total Cells Counted 100 100 Neutrophils % (Manual) 72 % (45-75) 73 % (45-75) Lymphocytes % (Manual) 11 % (20-45) L 12 % (20-45) L Monocytes % (Manual) 6 % (1-10) 4 % (1-10) Eosinophils % (Manual) 0 % (0-3) 0 % (0-3) Basophils % (Manual) 0 % (0-2) 0 % (0-2) Band Neutrophils 11 % (0-8) H 11 % (0-8) H Platelet Estimate Adequate Adequate Platelet Morphology Normal Normal Hypochromasia 1+ 1+ Anisocytosis 1+ 1+ Microcytosis 2+ Sodium Level 132 MMOL/L (136-145) L Potassium Level 2.7 MMOL/L (3.5-5.1) *L 2.7 MMOL/L (3.5-5.1) *L Chloride Level 101 MMOL/L (98-107) Carbon Dioxide Level 12 MMOL/L (21-32) L Anion Gap 19 mmol/L (5-15) H Blood Urea Nitrogen 45 mg/dL (7-18) H Creatinine 3.5 MG/DL (0.55-1.30) H Estimat Glomerular Filtration Rate 13.9 mL/min (>60) Glucose Level 174 MG/DL (74-106) H Calcium Level 8.8 MG/DL (8.5-10.1) Phosphorus Level 1.8 MG/DL (2.5-4.9) L 3.1 MG/DL (2.5-4.9) Magnesium Level 1.6 MG/DL (1.8-2.4) L Arterial Blood pH 7.312 (7.350-7.450) Arterial Blood Partial Pressure CO2 26.4 mmHg (35.0-45.0) L Arterial Blood Partial Pressure O2 167.2 mmHg (75.0-100.0) H Arterial Blood HCO3 13.1 mmol/L (22.0-26.0) L Arterial Blood Oxygen Saturation 99.0 % (92.0-98.0) H Arterial Blood Base Excess -11.9 Ravi Test Positive Test 07/31/17 14:00 07/31/17 14:30 Arterial Blood pH 7.214 (7.350-7.450) Arterial Blood Partial Pressure CO2 35.5 mmHg (35.0-45.0) Arterial Blood Partial Pressure O2 182.6 mmHg (75.0-100.0) H Arterial Blood HCO3 14.0 mmol/L (22.0-26.0) L Arterial Blood Oxygen Saturation 98.7 % (92.0-98.0) H Arterial Blood Base Excess -12.8 Ravi Test Positive Sodium Level 134 MMOL/L (136-145) L Potassium Level 3.1 MMOL/L (3.5-5.1) L Chloride Level 102 MMOL/L (98-107) Carbon Dioxide Level 12 MMOL/L (21-32) L Anion Gap 20 mmol/L (5-15) H Blood Urea Nitrogen 49 mg/dL (7-18) H Creatinine 4.0 MG/DL (0.55-1.30) H Estimat Glomerular Filtration Rate 11.9 mL/min (>60) Glucose Level 128 MG/DL (74-106) H Calcium Level 8.7 MG/DL (8.5-10.1) Assessment Additional Comments septic shock & cellulitis lower abdomen Plan Additional Comments IV Antibiotics SALBADOR STEWART July 31, 2017 16:18
--- NOTE | 2017-07-31 17:09 | Pulmonolgy Critical Care Note ---
Critical Care - Asmt/Plan Assessment/Plan: Patient is a 46 year old woman admitted with abdominal wall cellulitis, severe Diabetic Ketoacidosis, currently intubated and sedated in the ICU On antibiotics per ID Insulin gtt per Endocrine, remains on bicarbonate gtt AC 24 vt 600 p5 FIO2 35 Off pressors Problems: (1) Cellulitis of abdominal wall Assessment & Plan: rule out necrotizing fasciitis , antibiotics per ID, surgery following (2) UTI (urinary tract infection) on zosyn /Vanc (3) Pharyngitis, acute Antibiotics/ID (4) Septic shock Assessment & Plan: due to the above will send blood culture and start vancomycin with zosyn empiric coverage, remains of Levophed (5) Acute respiratory failure Assessment & Plan: due to the above, intubated in ED continue on mechanical ventilation, sedation for RASS -1 (6) SCARLET (acute kidney injury) Assessment & Plan: due to the above, continue fluids for hydration and blood pressure support, nephrology is following (7) DKA (diabetic ketoacidoses)/Hyponatremia Assessment & Plan: due to poorly controlled diabetes and sepsis, recommend insulin drip in the ICU with close monitor of her blood glucose to keep between 80-120 Subjective Allergies: Coded Allergies: No Known Allergies (Unverified , 07/29/17) Objective Vital Signs Last 24 Hour Vital Signs Date Time Temp Pulse Resp B/P (MAP) Pulse Ox O2 Delivery O2 Flow Rate FiO2 07/29/17 16:30 82 25 35 07/29/17 15:04 97.0 79 34 103/98 99 Room Air 97.0 07/29/17 13:02 97.0 100 16 73/49 98 Room Air 97.0 Height (Feet): 5 Height (Inches): 5.00 Weight (Pounds): 250 Patient sedated on the ventilator Obese HEENT: NCAT, PERRL, moist MM Chest: CTAB, equal BS, 8.0 ETT 23cm Heart: HS1, Hs2 RRR Abdomen: Obese, erethematous area lower abdominal wall Extremeties: No rashes PAN[employer] SE[employer]ER: No focal signs noted, no seizures Laboratory Tests Test 07/29/17 13:55 07/29/17 15:00 07/29/17 15:34 White Blood Count 36.2 K/UL (4.8-10.8) *H Red Blood Count 5.09 M/UL (4.20-5.40) Hemoglobin 10.5 G/DL (12.0-16.0) L Hematocrit 36.4 % (37.0-47.0) L Mean Corpuscular Volume 71 FL (80-99) L Mean Corpuscular Hemoglobin 20.6 PG (27.0-31.0) L Mean Corpuscular Hemoglobin Concent 28.9 G/DL (32.0-36.0) L Red Cell Distribution Width 16.2 % (11.6-14.8) H Platelet Count 525 K/UL (150-450) H Mean Platelet Volume 8.3 FL (6.5-10.1) Neutrophils (%) (Auto) % (45.0-75.0) Lymphocytes (%) (Auto) % (20.0-45.0) Monocytes (%) (Auto) % (1.0-10.0) Eosinophils (%) (Auto) % (0.0-3.0) Basophils (%) (Auto) % (0.0-2.0) Differential Total Cells Counted 100 Neutrophils % (Manual) 69 % (45-75) Lymphocytes % (Manual) 10 % (20-45) L Monocytes % (Manual) 5 % (1-10) Eosinophils % (Manual) 0 % (0-3) Basophils % (Manual) 0 % (0-2) Band Neutrophils 16 % (0-8) H Platelet Estimate Increased H Platelet Morphology Giant Platelets Occasional Polychromasia 1+ Hypochromasia 1+ Anisocytosis 1+ Microcytosis 1+ D-Dimer 1.85 mg/L FEU (0.00-0.49) H Urine Color Pale yellow Urine Appearance Clear Urine pH 5 (4.5-8.0) Urine Specific [place] 1.020 (1.005-1.035) Urine Protein 3+ (NEGATIVE) H Urine Glucose (UA) 4+ (NEGATIVE) H Urine Ketones 3+ (NEGATIVE) H Urine Occult Blood 5+ (NEGATIVE) H Urine Nitrite Negative (NEGATIVE) Urine Bilirubin Negative (NEGATIVE) Urine Urobilinogen Normal MG/DL (0.0-1.0) Urine Leukocyte Esterase 3+ (NEGATIVE) H Urine RBC 5-10 /HPF (0 - 2) H Urine WBC 5-10 /HPF (0 - 2) H Urine Squamous Epithelial Cells Moderate /LPF (NONE/OCC) H Urine Bacteria Few /HPF (NONE) Urine HCG, Qualitative Negative (NEGATIVE) Sodium Level 118 MMOL/L (136-145) *L Potassium Level 5.0 MMOL/L (3.5-5.1) Chloride Level 85 MMOL/L (98-107) L Carbon Dioxide Level < 5 MMOL/L (21-32) *L Blood Urea Nitrogen 28 mg/dL (7-18) H Creatinine 1.8 MG/DL (0.55-1.30) H Estimat Glomerular Filtration Rate 30.1 mL/min (>60) Glucose Level 868 MG/DL (74-106) *H Calcium Level 10.7 MG/DL (8.5-10.1) H Total Bilirubin 0.7 MG/DL (0.2-1.0) Aspartate Amino Transf (AST/SGOT) 44 U/L (15-37) H Alanine Aminotransferase (ALT/SGPT) 29 U/L (12-78) Alkaline Phosphatase 337 U/L (46-116) H Total Creatine Kinase 159 U/L (26-308) Creatine Kinase MB 3.3 NG/ML (0.0-3.6) Creatine Kinase MB Relative Index 2.0 Troponin I 0.000 ng/mL (0.000-0.056) Pro-B-Type Natriuretic Peptide 5024 pg/mL (0-125) H Total Protein 8.3 G/DL (6.4-8.2) H Albumin 2.3 G/DL (3.4-5.0) L Globulin 6.0 g/dL Albumin/Globulin Ratio 0.4 (1.0-2.7) L Lipase 47 U/L (73-393) L Urine Opiates Screen Negative (NEGATIVE) Urine Barbiturates Screen Negative (NEGATIVE) Phencyclidine (PCP) Screen Negative (NEGATIVE) Urine Amphetamines Screen Negative (NEGATIVE) Urine Benzodiazepines Screen Negative (NEGATIVE) Urine Cocaine Screen Negative (NEGATIVE) Urine Marijuana (THC) Screen Negative (NEGATIVE) Lactic Acid Level 1.10 mmol/L (0.66-2.22) Arterial Blood pH 6.830 (7.350-7.450) Arterial Blood Partial Pressure CO2 21.0 mmHg (35.0-45.0) *L Arterial Blood Partial Pressure O2 108.8 mmHg (75.0-100.0) H Arterial Blood HCO3 3.4 mmol/L (22.0-26.0) L Arterial Blood Oxygen Saturation 95.7 % (92.0-98.0) Arterial Blood Base Excess -29.1 Ravi Test Positive Current Medications Medications (Trade) Dose Ordered Sig/Tommy Route PRN Reason Start Time Stop Time Status Last Admin Dose Admin Insulin Human Regular 100 units/ Sodium Chloride 100 ml @ 5 mls/hr Q24H IV 07/29/17 14:15 08/28/17 14:14 Norepinephrine Bitartrate 4 mg/ Dextrose 250 ml @ 0 mls/hr Q24H IV 07/29/17 16:45 08/28/17 16:44 Piperacillin Sod/ Tazobactam Sod 3.375 gm/Sodium Chloride 110 ml @ 27.5 mls/hr EVERY 8 HOURS IVPB 07/29/17 22:00 08/03/17 21:59 Vancomycin HCl (Vanco rx to dose) 1 ea DAILY PRN MISC Per rx protocol 07/29/17 16:00 08/28/17 15:59 Vancomycin HCl 500 mg/Dextrose 110 ml @ 110 mls/hr ONCE ONCE IVPB 07/29/17 18:00 07/29/17 18:59 Critical Care - Objective Last 24 Hour Vital Signs Date Time Temp Pulse Resp B/P (MAP) Pulse Ox O2 Delivery O2 Flow Rate FiO2 07/31/17 17:00 94 33 35 07/31/17 16:00 35 07/31/17 16:00 138/67 07/31/17 15:30 104/64 07/31/17 15:15 78/35 07/31/17 15:01 91 35 35 07/31/17 15:00 84/36 07/31/17 13:00 106 33 112/50 96 Mechanical Ventilator 35 07/31/17 12:45 109 32 115/63 97 Mechanical Ventilator 35 07/31/17 12:32 96 33 35 07/31/17 12:30 111/66 07/31/17 12:30 111 33 111/66 98 Mechanical Ventilator 35 07/31/17 12:15 134/74 07/31/17 12:09 99.5 07/31/17 12:00 35 07/31/17 12:00 134/53 07/31/17 12:00 99.5 105 35 134/53 100 Mechanical Ventilator 35 99.5 5/6/18 11:45 101 35 131/63 100 Mechanical Ventilator 35 5/6/18 11:30 131/70 5/6/18 11:30 94 34 131/70 100 Mechanical Ventilator 35 5/6/18 11:15 82 34 125/66 100 Mechanical Ventilator 35 5/6/18 11:00 126/67 5/6/18 11:00 80 34 126/67 100 Mechanical Ventilator 35 5/6/18 10:56 77/52 5/6/18 10:45 80 34 74/31 100 Mechanical Ventilator 35 5/6/18 10:39 100 33 35 5/6/18 10:30 93 33 90/31 99 Mechanical Ventilator 35 5/6/18 10:22 100.0 5/6/18 10:00 100.0 103 35 116/57 99 Mechanical Ventilator 35 100.0 5/6/18 09:53 36 116/50 5/6/18 09:30 104 34 117/59 98 Mechanical Ventilator 35 5/6/18 09:00 101 35 107/61 98 Mechanical Ventilator 35 5/6/18 08:57 99 33 35 5/6/18 08:30 95 35 100/59 95 Mechanical Ventilator 35 5/6/18 08:00 100.2 96 35 100/59 95 Mechanical Ventilator 35 100.2 5/6/18 08:00 35 5/6/18 08:00 98 5/6/18 07:30 35 5/6/18 07:30 99 34 113/55 93 Mechanical Ventilator 35 5/6/18 07:00 90 36 35 5/6/18 07:00 98 35 127/64 100 Mechanical Ventilator 35 5/6/18 06:45 101 35 127/97 100 Mechanical Ventilator 35 5/6/18 06:30 104 35 127/64 100 Mechanical Ventilator 35 5/6/18 06:15 105 35 108/53 100 Mechanical Ventilator 35 5/6/18 06:00 106 35 118/57 100 Mechanical Ventilator 35 5/6/18 05:45 105 35 127/64 100 Mechanical Ventilator 35 5/6/18 05:30 98 35 127/64 100 Mechanical Ventilator 35 5/6/18 05:15 104 35 131/60 100 Mechanical Ventilator 35 5/6/18 05:01 97 35 35 5/6/18 05:00 101 36 130/74 100 Mechanical Ventilator 35 5/6/18 04:45 98 35 121/45 100 Mechanical Ventilator 35 5/6/18 04:30 98 34 116/60 100 Mechanical Ventilator 35 5/6/18 04:15 96 38 111/58 100 Mechanical Ventilator 35 5/6/18 04:06 102/53 5/6/18 04:00 99.5 101 38 102/53 100 Mechanical Ventilator 35 99.5 5/6/18 04:00 35 5/6/18 04:00 97 5/6/18 03:45 101 38 106/49 100 Mechanical Ventilator 35 5/6/18 03:30 101 38 117/37 100 Mechanical Ventilator 35 5/6/18 03:15 101 38 129/46 100 Mechanical Ventilator 35 5/6/18 03:08 97 35 35 5/6/18 03:00 99 37 125/43 99 Mechanical Ventilator 35 5/6/18 02:45 101 38 117/37 100 Mechanical Ventilator 35 5/6/18 02:30 100 37 113/48 100 Mechanical Ventilator 35 5/6/18 02:15 99 34 117/37 100 Mechanical Ventilator 35 5/6/18 02:00 87 34 124/57 100 Mechanical Ventilator 35 5/6/18 01:15 34 94/31 5/6/18 01:00 90 34 35 5/6/18 00:45 90 34 97/53 100 Mechanical Ventilator 35 5/6/18 00:30 94 36 94/22 100 Mechanical Ventilator 35 5/6/18 00:16 99 36 124/33 100 Mechanical Ventilator 35 5/6/18 00:00 99.6 98 36 116/46 100 Mechanical Ventilator 35 99.6 5/5/18 23:45 94 36 92/22 100 Mechanical Ventilator 35 5/5/18 23:32 100 36 35 5/5/18 23:30 99 36 124/33 100 Mechanical Ventilator 35 5/5/18 23:15 102 36 115/37 99 Mechanical Ventilator 35 5/5/18 23:00 101 36 120/44 100 Mechanical Ventilator 35 5/5/18 22:45 104 36 115/37 100 Mechanical Ventilator 35 5/5/18 22:30 102 36 125/33 100 Mechanical Ventilator 35 5/5/18 22:15 102 36 119/40 100 Mechanical Ventilator 35 5/5/18 22:00 104 36 129/40 100 Mechanical Ventilator 35 5/5/18 21:45 102 36 115/37 100 Mechanical Ventilator 35 5/5/18 21:30 97 36 96/46 100 Mechanical Ventilator 35 5/5/18 21:23 103 36 35 5/5/18 21:15 103 36 120/51 100 Mechanical Ventilator 35 5/5/18 21:03 89/49 5/5/18 21:00 103 36 89/49 100 Mechanical Ventilator 35 5/5/18 20:45 104 36 103/46 100 Mechanical Ventilator 35 5/5/18 20:30 103 36 103/46 100 Mechanical Ventilator 35 5/5/18 20:00 107 5/5/18 20:00 99.6 107 36 100/59 100 Mechanical Ventilator 35 99.6 5/5/18 20:00 35 5/5/18 19:45 108 37 101/58 100 Mechanical Ventilator 35 5/5/18 19:30 108 37 125/57 100 Mechanical Ventilator 35 5/5/18 19:15 106 37 113/59 100 Mechanical Ventilator 35 5/5/18 19:00 106 33 35 5/5/18 19:00 104 36 126/58 100 Mechanical Ventilator 35 5/5/18 18:58 33 147/62 5/5/18 18:45 106 36 147/62 100 Mechanical Ventilator 35 5/5/18 18:30 103 34 132/60 100 Mechanical Ventilator 35 5/5/18 18:00 103 32 99/45 100 Mechanical Ventilator 35 5/5/18 17:30 98 31 99/49 100 Mechanical Ventilator 35 Micro: Microbiology Date/Time Source Procedure Growth Status 07/29/17 14:45 Blood Blood Culture - Preliminary NO GROWTH AFTER 24 HOURS Resulted 07/29/17 14:30 Blood Blood Culture - Preliminary NO GROWTH AFTER 24 HOURS Resulted 07/29/17 18:30 Nasal Nares MRSA Culture - Final NO METHICILLIN RESISTANT STAPH AUREUS... Complete 07/29/17 21:00 Leg Left Gram Stain - Final Resulted 07/29/17 21:00 Wound Culture - Preliminary Gram Negative Bacillus 1 Resulted 07/29/17 17:05 Rectum VRE Culture - Final NO VANCOMYCIN RESISTANT ENTEROCOCCUS ... Complete Accucheck: 166 Critical Care - Subjective ROS Limited/Unobtainable: Yes Condition: improving IV Access: central EKG Rhythm: Sinus Rhythm FI02: 35 Vent Support Breath Rate: 24 Vent Support Mode: AC Vent Tidal Volume: 600 Sputum Amount: None PEEP: 5.0 PIP: 29 I&O: Intake and Output 07/30/17 07/31/17 19:00 07:00 Intake Total 3452.002 ml 3617.885 ml Output Total 30 ml 35 ml Balance 3422.002 ml 3582.885 ml Intake Oral 0 ml 0 ml IV Total 3452.002 ml 3617.885 ml Output Urine Total 30 ml 35 ml ET-Tube: 8.0 ET Position: 22 Marko Chaney M.D. July 31, 2017 17:09
--- NOTE | 2017-07-31 18:14 | Operative Note - PDOC ---
Operative Note Operative Note Date of Operation/Procedure: July 31, 2017 Pre-op Diagnosis: sepsis, acute renal failure requiring urgent dialysis Procedure: left femoral temporary HD catheter insertion Post-op Diagnosis: same as pre-op Surgeon: emely Anesthesia: moderate sedation Specimen: none Complications: none Condition: stable Estimated Blood Loss: minimal Drains: none Implant(s) used?: Yes - 12F temp HD cath Indications for Procedure 46F presented with sepsis, acute respiratory failure, and has been in critical condition since admission. unfortunately severe sepsis with multi organ failure and recently worsening renal failure/oliguria. patient acidotic and anticipating urgent need for dialysis. I was called to assist in placing a temporary HD catheter for dialysis. Patient seen, chart reviewed, patient examined. Discussed risks, benefits, and alternatives to temporary HD catheter placement with patients family (brothers, sister, mother) and consent obtained. Description of Procedure patient made comfortable at bedside. currently has right femoral triple lumen catheter. decision made to proceed with left femoral insertion. left groin prepped and draped in standard surgical fashion. finder needle used to cannulate left femoral vein which was obtained on first attempt. upon aspiration of venous blood, the guidewire was placed through the needle and needle removed. small skin incision was made around the guide wire. dilators were passed over guidewire until temporary catheter was inserted without complication. using Seldinger technique 12f temp HD cath was successfully inserted. ports aspirated and flushed properly. heparin infused as directed into ports 1.4cc per port site. catheter sutured in two points and dressings applied. patient tolerated well. Rai Baker July 31, 2017 18:14
[2017-07-31] MEDS ORDERED: Heparin 5000 units/ml inj IV ONE (19:00)
[2017-07-31] MEDS: Dyna-Hex 2% Top Sol 2oz TOPIC SCH (20:08)
[2017-07-31 20:59] LABS: INR 0.9 (0.9-1.1)
--- NOTE | 2017-07-31 21:02 | Nephrology Progress Note ---
Assessment/Plan Status Narrative Patient tolerated HD. 30 minutes left. Long d/w son to obtain consent for HD due to refractory metabolic acidosis and hemodynamic instability. Continue close monitoring Assessment/Plan 1. SCARLET- ATN nonresolving up to 3.5 Cr. Ptient now hemodynamically stable. Hopefully renal recovery starts in next 24-48 hours - multifact ATN (sepsis induced inflammotory cytokine prox tub damage/ ishchemic ATN hypotension/vol dep) - expect poor UOP for now, hopefully renal recovery prior to needing HD. Monitor UOP - off IV pressor 2. DKA/Met Acidosis- bicarb improved to 12, continue insulin and IVF's per endo. Component of DKA and hypoperfusion 3. Septic Shock- etiology likely from abd cellulitis. Abx mgmt per ID 4. Hypotension- IV pressor stop. BP improved, maintain MAP >65 mmHg 5. Resp FL- intubated on ventilator per PCCM management 6. E- Abn, K+, Phos and Mg being replaced 7. Hyponatremia- correcting, pseudohyponatremia. Na 132 and stable Subjective Allergies: Coded Allergies: PENICILLINS (Verified Allergy, Unknown, 07/30/17) According to mother, the patient is allergic to Penicillins Subjective Patient remains intubated on the ventilator. Off pressors and remains on insulin gtt Objective Last 24 Hour Vital Signs Date Time Temp Pulse Resp B/P (MAP) Pulse Ox O2 Delivery O2 Flow Rate FiO2 07/31/17 20:15 93 34 177/59 95 Mechanical Ventilator 35 07/31/17 20:00 93 33 182/65 95 Mechanical Ventilator 35 07/31/17 20:00 35 07/31/17 20:00 93 07/31/17 19:45 89 33 161/64 95 Mechanical Ventilator 35 07/31/17 19:30 89 34 184/63 94 Mechanical Ventilator 35 07/31/17 19:15 91 34 182/69 94 Mechanical Ventilator 35 07/31/17 19:00 90 34 137/69 95 Mechanical Ventilator 35 07/31/17 18:45 91 34 155/60 94 Mechanical Ventilator 35 07/31/17 18:30 93 35 177/68 96 Mechanical Ventilator 32 07/31/17 18:00 99.3 93 36 177/68 35 99.3 07/31/17 18:00 99.2 91 33 167/61 96 Mechanical Ventilator 32 99.2 5/6/18 18:00 33 167/61 5/6/18 18:00 167/61 5/6/18 17:30 88 33 155/59 97 Mechanical Ventilator 32 5/6/18 17:00 94 33 35 5/6/18 17:00 32 99/55 5/6/18 17:00 99/55 5/6/18 17:00 83 32 99/55 98 Mechanical Ventilator 32 5/6/18 16:30 86 27 118/60 98 Mechanical Ventilator 35 5/6/18 16:00 85 5/6/18 16:00 99.1 83 27 138/67 98 Mechanical Ventilator 35 99.1 5/6/18 16:00 35 5/6/18 16:00 27 138/67 5/6/18 16:00 138/67 5/6/18 15:30 97 32 104/64 95 Mechanical Ventilator 35 5/6/18 15:30 104/64 5/6/18 15:15 78/35 5/6/18 15:01 91 35 35 5/6/18 15:00 95 33 84/36 95 Mechanical Ventilator 35 5/6/18 15:00 33 84/36 5/6/18 15:00 84/36 5/6/18 14:45 101 28 104/55 96 Mechanical Ventilator 35 5/6/18 14:30 103 27 104/53 96 Mechanical Ventilator 35 5/6/18 14:15 100 27 96/61 95 Mechanical Ventilator 35 5/6/18 14:00 100 30 96/58 95 Mechanical Ventilator 35 5/6/18 13:45 100 30 103/52 95 Mechanical Ventilator 35 5/6/18 13:30 95 29 105/64 97 Mechanical Ventilator 35 5/6/18 13:15 95 29 105/64 97 Mechanical Ventilator 35 5/6/18 13:00 106 33 112/50 96 Mechanical Ventilator 35 5/6/18 13:00 33 112/50 5/6/18 12:45 109 32 115/63 97 Mechanical Ventilator 35 5/6/18 12:32 96 33 35 5/6/18 12:30 111/66 5/6/18 12:30 111 33 111/66 98 Mechanical Ventilator 35 5/6/18 12:15 134/74 5/6/18 12:09 99.5 5/6/18 12:00 35 5/6/18 12:00 35 134/53 5/6/18 12:00 134/53 5/6/18 12:00 99.5 105 35 134/53 100 Mechanical Ventilator 35 99.5 5/6/18 12:00 94 5/6/18 11:45 101 35 131/63 100 Mechanical Ventilator 35 5/6/18 11:30 131/70 5/6/18 11:30 94 34 131/70 100 Mechanical Ventilator 35 5/6/18 11:15 82 34 125/66 100 Mechanical Ventilator 35 5/6/18 11:00 34 126/67 5/6/18 11:00 126/67 5/6/18 11:00 80 34 126/67 100 Mechanical Ventilator 35 5/6/18 10:56 77/52 5/6/18 10:45 80 34 74/31 100 Mechanical Ventilator 35 5/6/18 10:39 100 33 35 5/6/18 10:30 93 33 90/31 99 Mechanical Ventilator 35 5/6/18 10:22 100.0 5/6/18 10:00 100.0 103 35 116/57 99 Mechanical Ventilator 35 100.0 5/6/18 10:00 35 116/57 5/6/18 09:53 36 116/50 5/6/18 09:30 104 34 117/59 98 Mechanical Ventilator 35 5/6/18 09:00 36 107/61 5/6/18 09:00 101 35 107/61 98 Mechanical Ventilator 35 5/6/18 08:57 99 33 35 5/6/18 08:30 95 35 100/59 95 Mechanical Ventilator 35 5/6/18 08:00 100.2 96 35 100/59 95 Mechanical Ventilator 35 100.2 5/6/18 08:00 35 5/6/18 08:00 35 100/59 5/6/18 08:00 98 5/6/18 07:30 35 5/6/18 07:30 99 34 113/55 93 Mechanical Ventilator 35 5/6/18 07:00 90 36 35 5/6/18 07:00 98 35 127/64 100 Mechanical Ventilator 35 5/6/18 07:00 34 90/43 5/6/18 06:45 101 35 127/97 100 Mechanical Ventilator 35 5/6/18 06:30 104 35 127/64 100 Mechanical Ventilator 35 5/6/18 06:15 105 35 108/53 100 Mechanical Ventilator 35 5/6/18 06:00 106 35 118/57 100 Mechanical Ventilator 35 5/6/18 05:45 105 35 127/64 100 Mechanical Ventilator 35 5/6/18 05:30 98 35 127/64 100 Mechanical Ventilator 35 5/6/18 05:15 104 35 131/60 100 Mechanical Ventilator 35 5/6/18 05:01 97 35 35 5/6/18 05:00 101 36 130/74 100 Mechanical Ventilator 35 5/6/18 04:45 98 35 121/45 100 Mechanical Ventilator 35 5/6/18 04:30 98 34 116/60 100 Mechanical Ventilator 35 5/6/18 04:15 96 38 111/58 100 Mechanical Ventilator 35 5/6/18 04:06 102/53 5/6/18 04:00 99.5 101 38 102/53 100 Mechanical Ventilator 35 99.5 5/6/18 04:00 35 5/6/18 04:00 97 5/6/18 03:45 101 38 106/49 100 Mechanical Ventilator 35 5/6/18 03:30 101 38 117/37 100 Mechanical Ventilator 35 5/6/18 03:15 101 38 129/46 100 Mechanical Ventilator 35 5/6/18 03:08 97 35 35 5/6/18 03:00 99 37 125/43 99 Mechanical Ventilator 35 5/6/18 02:45 101 38 117/37 100 Mechanical Ventilator 35 5/6/18 02:30 100 37 113/48 100 Mechanical Ventilator 35 5/6/18 02:15 99 34 117/37 100 Mechanical Ventilator 35 5/6/18 02:00 87 34 124/57 100 Mechanical Ventilator 35 5/6/18 01:15 34 94/31 5/6/18 01:00 90 34 35 5/6/18 00:45 90 34 97/53 100 Mechanical Ventilator 35 5/6/18 00:30 94 36 94/22 100 Mechanical Ventilator 35 5/6/18 00:16 99 36 124/33 100 Mechanical Ventilator 35 5/6/18 00:00 99.6 98 36 116/46 100 Mechanical Ventilator 35 99.6 5/5/18 23:45 94 36 92/22 100 Mechanical Ventilator 35 5/5/18 23:32 100 36 35 5/5/18 23:30 99 36 124/33 100 Mechanical Ventilator 35 5/5/18 23:15 102 36 115/37 99 Mechanical Ventilator 35 07/30/17 23:00 101 36 120/44 100 Mechanical Ventilator 35 07/30/17 22:45 104 36 115/37 100 Mechanical Ventilator 35 07/30/17 22:30 102 36 125/33 100 Mechanical Ventilator 35 07/30/17 22:15 102 36 119/40 100 Mechanical Ventilator 35 07/30/17 22:00 104 36 129/40 100 Mechanical Ventilator 35 07/30/17 21:45 102 36 115/37 100 Mechanical Ventilator 35 07/30/17 21:30 97 36 96/46 100 Mechanical Ventilator 35 07/30/17 21:23 103 36 35 07/30/17 21:15 103 36 120/51 100 Mechanical Ventilator 35 07/30/17 21:03 89/49 Intake and Output 07/30/17 07/31/17 19:00 07:00 Intake Total 3452.002 ml 3617.885 ml Output Total 30 ml 35 ml Balance 3422.002 ml 3582.885 ml Intake Oral 0 ml 0 ml IV Total 3452.002 ml 3617.885 ml Output Urine Total 30 ml 35 ml Laboratory Tests 07/31/17 04:55: White Blood Count 12.3H, Red Blood Count 3.99L, Hemoglobin 8.5L, Hematocrit 26.6L, Mean Corpuscular Volume 67L, Mean Corpuscular Hemoglobin 21.3L, Mean Corpuscular Hemoglobin Concent 32.0, Red Cell Distribution Width 15.2H, Platelet Count 286, Mean Platelet Volume 8.1, Neutrophils (%) (Auto) , Lymphocytes (%) (Auto) , Monocytes (%) (Auto) , Eosinophils (%) (Auto) , Basophils (%) (Auto) , Differential Total Cells Counted 100, Neutrophils % ( Manual) 72, Lymphocytes % (Manual) 11L, Monocytes % (Manual) 6, Eosinophils % ( Manual) 0, Basophils % (Manual) 0, Band Neutrophils 11H, Platelet Estimate Adequate, Platelet Morphology Normal, Hypochromasia 1+, Anisocytosis 1+, Microcytosis 2+, Sodium Level 132L, Potassium Level 2.7*L, Chloride Level 101, Carbon Dioxide Level 12L, Anion Gap 19H, Blood Urea Nitrogen 45H, Creatinine 3.5H, Estimat Glomerular Filtration Rate 13.9, Glucose Level 174H, Calcium Level 8.8, Phosphorus Level 1.8L, Magnesium Level 1.6L 07/31/17 07:00: Arterial Blood pH 7.312L, Arterial Blood Partial Pressure CO2 26.4L, Arterial Blood Partial Pressure O2 167.2H, Arterial Blood HCO3 13.1L, Arterial Blood Oxygen Saturation 99.0H, Arterial Blood Base Excess -11.9, Ravi Test Positive 07/31/17 13:45: White Blood Count 11.7H, Red Blood Count 3.65L, Hemoglobin 7.8L, Hematocrit 24.2L, Mean Corpuscular Volume 66L, Mean Corpuscular Hemoglobin 21.4L, Mean Corpuscular Hemoglobin Concent 32.3, Red Cell Distribution Width 15.0H, Platelet Count 224, Mean Platelet Volume 7.3, Neutrophils (%) (Auto) , Lymphocytes (%) (Auto) , Monocytes (%) (Auto) , Eosinophils (%) (Auto) , Basophils (%) (Auto) , Differential Total Cells Counted 100, Neutrophils % ( Manual) 73, Lymphocytes % (Manual) 12L, Monocytes % (Manual) 4, Eosinophils % ( Manual) 0, Basophils % (Manual) 0, Band Neutrophils 11H, Platelet Estimate Adequate, Platelet Morphology Normal, Hypochromasia 1+, Anisocytosis 1+, Potassium Level 2.7*L, Phosphorus Level 3.1 07/31/17 14:00: Arterial Blood pH 7.214*L, Arterial Blood Partial Pressure CO2 35.5, Arterial Blood Partial Pressure O2 182.6H, Arterial Blood HCO3 14.0L, Arterial Blood Oxygen Saturation 98.7H, Arterial Blood Base Excess -12.8, Ravi Test Positive 07/31/17 14:30: Sodium Level 134L, Potassium Level 3.1L, Chloride Level 102, Carbon Dioxide Level 12L, Anion Gap 20H, Blood Urea Nitrogen 49H, Creatinine 4.0H, Estimat Glomerular Filtration Rate 11.9, Glucose Level 128H, Calcium Level 8.7 07/31/17 20:20: Prothrombin Time 9.4, Prothromb Time International Ratio 0.9, Activated Partial Thromboplast Time 32, Random Vancomycin Level [Pending] Height (Feet): 5 Height (Inches): 5.00 Weight (Pounds): 295 Carlton Guzmán M.D. July 31, 2017 21:02
--- NOTE | 2017-07-31 21:36 | Infectious Diseases Prog Note ---
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 and follow up (6) SCARLET (acute kidney injury) Assessment & Plan: due to the above, continue fluids for hydration and blood pressure support, nephrology is following, monitor vancomycin level closely (7) DKA (diabetic ketoacidoses) Assessment & Plan: due to poorly controlled diabetes and sepsis, S/P insulin drip in the ICU , continue close monitor of her blood glucose to keep between 80 -120 (8) Leg wound, left Assessment & Plan: with infection due to staph aureus and klebsiella oxytoca, already on zosyn and vancomycin, continue local wound care as per hospital protocol Subjective ROS Limited/Unobtainable: Yes Allergies: Coded Allergies: PENICILLINS (Verified Allergy, Unknown, 07/30/17) According to mother, the patient is allergic to Penicillins Subjective she was still intubated on mechanical ventilation , responds minimally to verbal commands, has low urine output , on pressor for blood pressure support, has low grad fever. less redness on the lower abdomen and the inner thighs Objective Vital Signs Last 24 Hour Vital Signs Date Time Temp Pulse Resp B/P (MAP) Pulse Ox O2 Delivery O2 Flow Rate FiO2 07/31/17 21:18 94 27 35 07/31/17 20:15 93 34 177/59 95 Mechanical Ventilator 35 07/31/17 20:00 93 33 182/65 95 Mechanical Ventilator 35 07/31/17 20:00 35 07/31/17 20:00 93 07/31/17 19:45 89 33 161/64 95 Mechanical Ventilator 35 07/31/17 19:30 89 34 184/63 94 Mechanical Ventilator 35 07/31/17 19:30 92 36 35 07/31/17 19:15 91 34 182/69 94 Mechanical Ventilator 35 5/6/18 19:00 90 34 137/69 95 Mechanical Ventilator 35 5/6/18 18:45 91 34 155/60 94 Mechanical Ventilator 35 5/6/18 18:30 93 35 177/68 96 Mechanical Ventilator 32 5/6/18 18:00 99.3 93 36 177/68 35 99.3 5/6/18 18:00 35 5/6/18 18:00 99.2 91 33 167/61 96 Mechanical Ventilator 32 99.2 5/6/18 18:00 33 167/61 5/6/18 18:00 167/61 5/6/18 17:30 88 33 155/59 97 Mechanical Ventilator 32 5/6/18 17:00 94 33 35 5/6/18 17:00 32 99/55 5/6/18 17:00 99/55 5/6/18 17:00 83 32 99/55 98 Mechanical Ventilator 32 5/6/18 16:30 86 27 118/60 98 Mechanical Ventilator 35 5/6/18 16:00 85 5/6/18 16:00 99.1 83 27 138/67 98 Mechanical Ventilator 35 99.1 5/6/18 16:00 35 5/6/18 16:00 27 138/67 5/6/18 16:00 138/67 5/6/18 15:30 97 32 104/64 95 Mechanical Ventilator 35 5/6/18 15:30 104/64 5/6/18 15:15 78/35 5/6/18 15:01 91 35 35 5/6/18 15:00 95 33 84/36 95 Mechanical Ventilator 35 5/6/18 15:00 33 84/36 5/6/18 15:00 84/36 5/6/18 14:45 101 28 104/55 96 Mechanical Ventilator 35 5/6/18 14:30 103 27 104/53 96 Mechanical Ventilator 35 5/6/18 14:15 100 27 96/61 95 Mechanical Ventilator 35 5/6/18 14:00 100 30 96/58 95 Mechanical Ventilator 35 5/6/18 13:45 100 30 103/52 95 Mechanical Ventilator 35 5/6/18 13:30 95 29 105/64 97 Mechanical Ventilator 35 5/6/18 13:15 95 29 105/64 97 Mechanical Ventilator 35 5/6/18 13:00 106 33 112/50 96 Mechanical Ventilator 35 5/6/18 13:00 33 112/50 5/6/18 12:45 109 32 115/63 97 Mechanical Ventilator 35 5/6/18 12:32 96 33 35 5/6/18 12:30 111/66 5/6/18 12:30 111 33 111/66 98 Mechanical Ventilator 35 5/6/18 12:15 134/74 5/6/18 12:09 99.5 5/6/18 12:00 35 5/6/18 12:00 35 134/53 5/6/18 12:00 134/53 5/6/18 12:00 99.5 105 35 134/53 100 Mechanical Ventilator 35 99.5 5/6/18 12:00 94 5/6/18 11:45 101 35 131/63 100 Mechanical Ventilator 35 5/6/18 11:30 131/70 5/6/18 11:30 94 34 131/70 100 Mechanical Ventilator 35 5/6/18 11:15 82 34 125/66 100 Mechanical Ventilator 35 5/6/18 11:00 34 126/67 5/6/18 11:00 126/67 5/6/18 11:00 80 34 126/67 100 Mechanical Ventilator 35 5/6/18 10:56 77/52 5/6/18 10:45 80 34 74/31 100 Mechanical Ventilator 35 5/6/18 10:39 100 33 35 5/6/18 10:30 93 33 90/31 99 Mechanical Ventilator 35 5/6/18 10:22 100.0 5/6/18 10:00 100.0 103 35 116/57 99 Mechanical Ventilator 35 100.0 5/6/18 10:00 35 116/57 5/6/18 09:53 36 116/50 5/6/18 09:30 104 34 117/59 98 Mechanical Ventilator 35 5/6/18 09:00 36 107/61 5/6/18 09:00 101 35 107/61 98 Mechanical Ventilator 35 5/6/18 08:57 99 33 35 5/6/18 08:30 95 35 100/59 95 Mechanical Ventilator 35 5/6/18 08:00 100.2 96 35 100/59 95 Mechanical Ventilator 35 100.2 5/6/18 08:00 35 5/6/18 08:00 35 100/59 5/6/18 08:00 98 5/6/18 07:30 35 5/6/18 07:30 99 34 113/55 93 Mechanical Ventilator 35 5/6/18 07:00 90 36 35 5/6/18 07:00 98 35 127/64 100 Mechanical Ventilator 35 5/6/18 07:00 34 90/43 5/6/18 06:45 101 35 127/97 100 Mechanical Ventilator 35 5/6/18 06:30 104 35 127/64 100 Mechanical Ventilator 35 5/6/18 06:15 105 35 108/53 100 Mechanical Ventilator 35 5/6/18 06:00 106 35 118/57 100 Mechanical Ventilator 35 5/6/18 05:45 105 35 127/64 100 Mechanical Ventilator 35 5/6/18 05:30 98 35 127/64 100 Mechanical Ventilator 35 5/6/18 05:15 104 35 131/60 100 Mechanical Ventilator 35 5/6/18 05:01 97 35 35 5/6/18 05:00 101 36 130/74 100 Mechanical Ventilator 35 5/6/18 04:45 98 35 121/45 100 Mechanical Ventilator 35 5/6/18 04:30 98 34 116/60 100 Mechanical Ventilator 35 5/6/18 04:15 96 38 111/58 100 Mechanical Ventilator 35 5/6/18 04:06 102/53 5/6/18 04:00 99.5 101 38 102/53 100 Mechanical Ventilator 35 99.5 5/6/18 04:00 35 5/6/18 04:00 97 5/6/18 03:45 101 38 106/49 100 Mechanical Ventilator 35 5/6/18 03:30 101 38 117/37 100 Mechanical Ventilator 35 5/6/18 03:15 101 38 129/46 100 Mechanical Ventilator 35 5/6/18 03:08 97 35 35 5/6/18 03:00 99 37 125/43 99 Mechanical Ventilator 35 5/6/18 02:45 101 38 117/37 100 Mechanical Ventilator 35 5/6/18 02:30 100 37 113/48 100 Mechanical Ventilator 35 5/6/18 02:15 99 34 117/37 100 Mechanical Ventilator 35 5/6/18 02:00 87 34 124/57 100 Mechanical Ventilator 35 5/6/18 01:15 34 94/31 5/6/18 01:00 90 34 35 5/6/18 00:45 90 34 97/53 100 Mechanical Ventilator 35 5/6/18 00:30 94 36 94/22 100 Mechanical Ventilator 35 5/6/18 00:16 99 36 124/33 100 Mechanical Ventilator 35 5/6/18 00:00 99.6 98 36 116/46 100 Mechanical Ventilator 35 99.6 5/5/18 23:45 94 36 92/22 100 Mechanical Ventilator 35 5/5/18 23:32 100 36 35 5/5/18 23:30 99 36 124/33 100 Mechanical Ventilator 35 5/5/18 23:15 102 36 115/37 99 Mechanical Ventilator 35 5/5/18 23:00 101 36 120/44 100 Mechanical Ventilator 35 5/5/18 22:45 104 36 115/37 100 Mechanical Ventilator 35 5/5/18 22:30 102 36 125/33 100 Mechanical Ventilator 35 5/5/18 22:15 102 36 119/40 100 Mechanical Ventilator 35 5/5/18 22:00 104 36 129/40 100 Mechanical Ventilator 35 5/5/18 21:45 102 36 115/37 100 Mechanical Ventilator 35 Height (Feet): 5 Height (Inches): 5.00 Weight (Pounds): 295 General Appearance: WD/WN, no acute distress HEENT: normocephalic, atraumatic, anicteric, mucous membranes moist Respiratory/Chest: normal breath sounds, no respiratory distress, no accessory muscle use, decreased breath sounds Cardiovascular: normal peripheral pulses, normal rate, regular rhythm, no gallop/murmur, no JVD Abdomen: normal bowel sounds, soft, non tender, no organomegaly, non distended , no mass, no scars, hypoactive bowel sounds, distended, other - skin redness and erythema on the ower aspect Extremities: no cyanosis, no clubbing Skin: no rash, no lesions, ulcers - left leg wound Lymphatic: no neck adenopathy, no groin adenopathy Microbiology Date/Time Source Procedure Growth Status 07/29/17 14:45 Blood Blood Culture - Preliminary NO GROWTH AFTER 24 HOURS Resulted 07/29/17 14:30 Blood Blood Culture - Preliminary NO GROWTH AFTER 24 HOURS Resulted 07/29/17 18:30 Nasal Nares MRSA Culture - Final NO METHICILLIN RESISTANT STAPH AUREUS... Complete 07/29/17 21:00 Leg Left Gram Stain - Final Resulted 07/29/17 21:00 Wound Culture - Preliminary Gram Negative Bacillus 1 Resulted 07/29/17 17:05 Rectum VRE Culture - Final NO VANCOMYCIN RESISTANT ENTEROCOCCUS ... Complete Laboratory Tests Test 07/31/17 04:55 07/31/17 07:00 07/31/17 13:45 07/31/17 14:00 White Blood Count 12.3 K/UL (4.8-10.8) H 11.7 K/UL (4.8-10.8) H Red Blood Count 3.99 M/UL (4.20-5.40) L 3.65 M/UL (4.20-5.40) L Hemoglobin 8.5 G/DL (12.0-16.0) L 7.8 G/DL (12.0-16.0) L Hematocrit 26.6 % (37.0-47.0) L 24.2 % (37.0-47.0) L Mean Corpuscular Volume 67 FL (80-99) L 66 FL (80-99) L Mean Corpuscular Hemoglobin 21.3 PG (27.0-31.0) L 21.4 PG (27.0-31.0) L Mean Corpuscular Hemoglobin Concent 32.0 G/DL (32.0-36.0) 32.3 G/DL (32.0-36.0) Red Cell Distribution Width 15.2 % (11.6-14.8) H 15.0 % (11.6-14.8) H Platelet Count 286 K/UL (150-450) 224 K/UL (150-450) Mean Platelet Volume 8.1 FL (6.5-10.1) 7.3 FL (6.5-10.1) Neutrophils (%) (Auto) % (45.0-75.0) % (45.0-75.0) Lymphocytes (%) (Auto) % (20.0-45.0) % (20.0-45.0) Monocytes (%) (Auto) % (1.0-10.0) % (1.0-10.0) Eosinophils (%) (Auto) % (0.0-3.0) % (0.0-3.0) Basophils (%) (Auto) % (0.0-2.0) % (0.0-2.0) Differential Total Cells Counted 100 100 Neutrophils % (Manual) 72 % (45-75) 73 % (45-75) Lymphocytes % (Manual) 11 % (20-45) L 12 % (20-45) L Monocytes % (Manual) 6 % (1-10) 4 % (1-10) Eosinophils % (Manual) 0 % (0-3) 0 % (0-3) Basophils % (Manual) 0 % (0-2) 0 % (0-2) Band Neutrophils 11 % (0-8) H 11 % (0-8) H Platelet Estimate Adequate Adequate Platelet Morphology Normal Normal Hypochromasia 1+ 1+ Anisocytosis 1+ 1+ Microcytosis 2+ Sodium Level 132 MMOL/L (136-145) L Potassium Level 2.7 MMOL/L (3.5-5.1) *L 2.7 MMOL/L (3.5-5.1) *L Chloride Level 101 MMOL/L (98-107) Carbon Dioxide Level 12 MMOL/L (21-32) L Anion Gap 19 mmol/L (5-15) H Blood Urea Nitrogen 45 mg/dL (7-18) H Creatinine 3.5 MG/DL (0.55-1.30) H Estimat Glomerular Filtration Rate 13.9 mL/min (>60) Glucose Level 174 MG/DL (74-106) H Calcium Level 8.8 MG/DL (8.5-10.1) Phosphorus Level 1.8 MG/DL (2.5-4.9) L 3.1 MG/DL (2.5-4.9) Magnesium Level 1.6 MG/DL (1.8-2.4) L Arterial Blood pH 7.312 (7.350-7.450) 7.214 (7.350-7.450) Arterial Blood Partial Pressure CO2 26.4 mmHg (35.0-45.0) L 35.5 mmHg (35.0-45.0) Arterial Blood Partial Pressure O2 167.2 mmHg (75.0-100.0) H 182.6 mmHg (75.0-100.0) H Arterial Blood HCO3 13.1 mmol/L (22.0-26.0) L 14.0 mmol/L (22.0-26.0) L Arterial Blood Oxygen Saturation 99.0 % (92.0-98.0) H 98.7 % (92.0-98.0) H Arterial Blood Base Excess -11.9 -12.8 Ravi Test Positive Positive Test 07/31/17 14:30 07/31/17 18:14 07/31/17 20:20 Sodium Level 134 MMOL/L (136-145) L Potassium Level 3.1 MMOL/L (3.5-5.1) L Chloride Level 102 MMOL/L (98-107) Carbon Dioxide Level 12 MMOL/L (21-32) L Anion Gap 20 mmol/L (5-15) H Blood Urea Nitrogen 49 mg/dL (7-18) H Creatinine 4.0 MG/DL (0.55-1.30) H Estimat Glomerular Filtration Rate 11.9 mL/min (>60) Glucose Level 128 MG/DL (74-106) H Calcium Level 8.7 MG/DL (8.5-10.1) Ionized Calcium (Measured) 1.08 mmol/L (1.10-1.35) L Prothrombin Time 9.4 SEC (9.30-11.50) Prothromb Time International Ratio 0.9 (0.9-1.1) Activated Partial Thromboplast Time 32 SEC (23-33) Random Vancomycin Level 20.8 ug/mL Current Medications Medications (Trade) Dose Ordered Sig/Tommy Route PRN Reason Start Time Stop Time Status Last Admin Dose Admin Acetaminophen (Tylenol) 650 mg EVERY 6 HOURS PRN RECTAL Mild Pain (Pain Scale 1-3) 07/30/17 17:54 08/29/17 17:53 07/31/17 10:22 Chlorhexidine Gluconate (Idalia-Hex 2%) 1 applic DAILY@2000 TOPIC 07/30/17 20:00 08/29/17 19:59 07/31/17 20:08 Dextrose (Dextrose 50%) 25 ml PRN PRN IV HYPOGLYCEMIA 07/30/17 10:30 08/29/17 10:29 Dextrose (Dextrose 50%) 50 ml PRN PRN IV HYPOGLYCEMIA 07/30/17 11:00 08/29/17 10:59 Fentanyl Citrate 1000 mcg/Sodium Chloride 100 ml @ 0 mls/hr Q24H IV 07/31/17 18:30 08/07/17 18:29 Heparin Sodium (Porcine) (Heparin 5000 units/ml) 5,000 units EVERY 8 HOURS SUBQ 07/29/17 22:00 08/28/17 21:59 07/31/17 15:02 Insulin Human Regular (NovoLIN R) 5 units PRN PRN IV BS 200-299 07/30/17 11:00 08/29/17 10:59 07/31/17 11:58 Insulin Human Regular (NovoLIN R) 10 units PRN PRN IV BS=>300 07/30/17 11:00 08/29/17 10:59 Insulin Human Regular 100 units/ Sodium Chloride 101 ml @ 0 mls/hr Q24H IV 07/30/17 14:00 08/29/17 13:59 07/31/17 06:11 Miscellaneous Medication (Insulin Rate Change) 1 ea PRN PRN MISC Hyperglycemia 07/30/17 11:00 08/29/17 10:59 07/31/17 16:24 Norepinephrine Bitartrate 8 mg/ Dextrose 250 ml @ 0 mls/hr Q24H IV 07/30/17 08:00 08/29/17 07:59 07/31/17 10:56 Pantoprazole (Protonix) 40 mg DAILY IVP 07/30/17 09:00 08/29/17 08:59 07/31/17 09:21 Piperacillin Sod/ Tazobactam Sod 3.375 gm/Sodium Chloride 110 ml @ 27.5 mls/hr EVERY 8 HOURS IVPB 07/29/17 22:00 08/03/17 21:59 07/31/17 14:51 Sodium Bicarbonate 150 ml/Dextrose 1,150 ml @ 75 mls/hr [id number] IV 07/30/17 12:00 08/28/17 11:59 07/31/17 04:07 Sodium Chloride 1,000 ml @ 100 mls/hr Q10H IV 07/31/17 07:00 08/29/17 06:59 07/31/17 14:34 Vancomycin HCl (Vanco rx to dose) 1 ea DAILY PRN MISC Per rx protocol 07/29/17 16:00 08/28/17 15:59 Vancomycin HCl 1 gm/Dextrose 275 ml @ 183.708 mls/hr ONCE ONCE IVPB 08/01/17 09:00 08/01/17 10:29 Johanny Colbert M.D. July 31, 2017 21:36
[2017-08-01] VITALS (49 sets, daily range): BP systolic 80–165; BP diastolic 31–69
[2017-08-01 00:09] LABS: ANION GAP 13 mmol/L (5-15); BLOOD UREA NITROGEN 31 mg/dL (7-18); CALCIUM 7.9 MG/DL (8.5-10.1); CARBON DIOXIDE 23 MMOL/L (21-32); CHLORIDE 103 MMOL/L (98-107); SODIUM 139 MMOL/L (136-145)
[2017-08-01 00:11] LABS: POTASSIUM 2.3 MMOL/L (3.5-5.1)
[2017-08-01] MEDS: Piperacillin/Tazobactam 3.375 GM in NS 110 ML IVPB SCH ×3 (05:40→21:37)
[2017-08-01] MEDS: Heparin 5000 units/ml inj SUBQ SCH ×3 (05:44→21:38)
[2017-08-01 06:19] LABS: HEMATOCRIT 23.3 % (37.0-47.0); HEMOGLOBIN 7.6 G/DL (12.0-16.0); MEAN CORPUSCULAR VOLUME 65 FL (80-99); PLATELET COUNT 247 K/UL (150-450); RED BLOOD COUNT 3.57 M/UL (4.20-5.40); RED CELL DISTRIBUTION WIDTH 14.7 % (11.6-14.8); WHITE BLOOD COUNT 13.1 K/UL (4.8-10.8)
[2017-08-01 06:33] LABS: ALANINE AMINOTRANSFERASE 18 U/L (12-78); ALBUMIN/GLOBULIN RATIO 0.2 (1.0-2.7); ALKALINE PHOSPHATASE 244 U/L (46-116); ANION GAP 15 mmol/L (5-15); ASPARTATE AMINO TRANSFERASE 26 U/L (15-37); BILIRUBIN,TOTAL 0.6 MG/DL (0.2-1.0); BLOOD UREA NITROGEN 33 mg/dL (7-18); CARBON DIOXIDE 22 MMOL/L (21-32); CHLORIDE 103 MMOL/L (98-107); CREATININE 3.3 MG/DL (0.55-1.30); SODIUM 140 MMOL/L (136-145)
[2017-08-01 06:39] LABS: POTASSIUM 2.4 MMOL/L (3.5-5.1)
--- NOTE | 2017-08-01 07:09 | General Progress Note ---
Assessment/Plan Problem List: (1) Cellulitis of abdominal wall ICD Codes: L03.311 - Cellulitis of abdominal wall SNOMED: 77106517 (2) Acute respiratory failure ICD Codes: J96.00 - Acute respiratory failure, unspecified whether with hypoxia or hypercapnia SNOMED: 02323507 (3) New onset type 1 diabetes mellitus, uncontrolled ICD Codes: E10.65 - Type 1 diabetes mellitus with hyperglycemia SNOMED: 016810694 (4) Necrotizing fasciitis ICD Codes: M72.6 - Necrotizing fasciitis SNOMED: 00578248 (5) DKA (diabetic ketoacidoses) ICD Codes: E13.10 - Other specified diabetes mellitus with ketoacidosis without coma SNOMED: 59754172, [id number] Assessment/Plan remained in critical condition AG closed but she requires high rate insulin gtt continue insulin gtt BG monitoring to every 2 hours monitor electrolytes and replete Subjective ROS Limited/Unobtainable: Yes Allergies: Coded Allergies: PENICILLINS (Verified Allergy, Unknown, 07/30/17) According to mother, the patient is allergic to Penicillins Subjective intubated in icu Objective Last 24 Hour Vital Signs Date Time Temp Pulse Resp B/P (MAP) Pulse Ox O2 Delivery O2 Flow Rate FiO2 08/01/17 06:00 83 24 94/35 93 Mechanical Ventilator 35 08/01/17 06:00 24 08/01/17 05:30 82 24 80/31 94 Mechanical Ventilator 35 08/01/17 05:05 87 24 35 08/01/17 05:00 24 08/01/17 05:00 85 24 86/32 93 Mechanical Ventilator 35 08/01/17 04:30 92 25 102/34 94 Mechanical Ventilator 35 08/01/17 04:00 35 08/01/17 04:00 99.2 92 20 96/40 94 Mechanical Ventilator 35 99.2 08/01/17 04:00 92 08/01/17 04:00 24 08/01/17 03:30 90 26 35 08/01/17 03:30 100 27 109/46 93 Mechanical Ventilator 35 08/01/17 03:00 30 08/01/17 03:00 105 28 140/54 93 Mechanical Ventilator 35 08/01/17 02:30 101 25 137/56 93 Mechanical Ventilator 35 08/01/17 02:15 104 28 134/54 93 Mechanical Ventilator 35 5/7/18 02:00 103 26 152/65 95 Mechanical Ventilator 35 5/7/18 02:00 19 5/7/18 01:45 99 24 155/63 95 Mechanical Ventilator 35 5/7/18 01:30 98 32 35 5/7/18 01:30 96 26 123/45 95 Mechanical Ventilator 35 5/7/18 01:00 93 27 119/45 96 Mechanical Ventilator 35 5/7/18 01:00 27 5/7/18 00:30 86 13 115/52 96 Mechanical Ventilator 35 5/7/18 00:00 35 5/7/18 00:00 86 5/7/18 00:00 17 5/7/18 00:00 99.3 86 18 104/41 96 Mechanical Ventilator 35 99.3 5/6/18 23:30 88 18 131/56 95 Mechanical Ventilator 35 5/6/18 23:29 86 24 35 5/6/18 23:15 86 18 111/43 95 Mechanical Ventilator 35 5/6/18 23:00 16 5/6/18 23:00 86 18 115/43 95 Mechanical Ventilator 35 5/6/18 22:45 86 18 123/44 95 Mechanical Ventilator 35 5/6/18 22:30 87 27 123/44 95 Mechanical Ventilator 35 5/6/18 22:30 99.1 5/6/18 22:11 37 5/6/18 22:00 102 31 174/62 94 Mechanical Ventilator 35 5/6/18 21:53 Mechanical Ventilator 35 5/6/18 21:51 99.1 96 36 175/69 Mechanical Ventilator 35 99.1 5/6/18 21:45 97 31 167/72 94 Mechanical Ventilator 35 5/6/18 21:18 94 27 35 5/6/18 21:15 94 30 175/69 94 Mechanical Ventilator 35 5/6/18 21:00 93 34 143/58 93 Mechanical Ventilator 35 5/6/18 20:45 95 34 174/66 95 Mechanical Ventilator 35 5/6/18 20:30 96 33 169/67 94 Mechanical Ventilator 35 5/6/18 20:15 93 34 177/59 95 Mechanical Ventilator 35 5/6/18 20:00 93 33 182/65 95 Mechanical Ventilator 35 5/6/18 20:00 35 5/6/18 20:00 93 5/6/18 19:45 89 33 161/64 95 Mechanical Ventilator 35 5/6/18 19:30 89 34 184/63 94 Mechanical Ventilator 35 5/6/18 19:30 92 36 35 5/6/18 19:15 91 34 182/69 94 Mechanical Ventilator 35 5/6/18 19:00 90 34 137/69 95 Mechanical Ventilator 35 5/6/18 18:45 91 34 155/60 94 Mechanical Ventilator 35 5/6/18 18:30 93 35 177/68 96 Mechanical Ventilator 32 5/6/18 18:00 99.3 93 36 177/68 35 99.3 5/6/18 18:00 35 5/6/18 18:00 99.2 91 33 167/61 96 Mechanical Ventilator 32 99.2 5/6/18 18:00 33 167/61 5/6/18 18:00 167/61 5/6/18 17:30 88 33 155/59 97 Mechanical Ventilator 32 5/6/18 17:00 94 33 35 5/6/18 17:00 32 99/55 5/6/18 17:00 99/55 5/6/18 17:00 83 32 99/55 98 Mechanical Ventilator 32 5/6/18 16:30 86 27 118/60 98 Mechanical Ventilator 35 5/6/18 16:00 85 5/6/18 16:00 99.1 83 27 138/67 98 Mechanical Ventilator 35 99.1 5/6/18 16:00 35 5/6/18 16:00 27 138/67 5/6/18 16:00 138/67 5/6/18 15:30 97 32 104/64 95 Mechanical Ventilator 35 5/6/18 15:30 104/64 5/6/18 15:15 78/35 5/6/18 15:01 91 35 35 5/6/18 15:00 95 33 84/36 95 Mechanical Ventilator 35 5/6/18 15:00 33 84/36 5/6/18 15:00 84/36 5/6/18 14:45 101 28 104/55 96 Mechanical Ventilator 35 5/6/18 14:30 103 27 104/53 96 Mechanical Ventilator 35 5/6/18 14:15 100 27 96/61 95 Mechanical Ventilator 35 5/6/18 14:00 100 30 96/58 95 Mechanical Ventilator 35 5/6/18 13:45 100 30 103/52 95 Mechanical Ventilator 35 5/6/18 13:30 95 29 105/64 97 Mechanical Ventilator 35 5/6/18 13:15 95 29 105/64 97 Mechanical Ventilator 35 5/6/18 13:00 106 33 112/50 96 Mechanical Ventilator 35 5/6/18 13:00 33 112/50 5/6/18 12:45 109 32 115/63 97 Mechanical Ventilator 35 5/6/18 12:32 96 33 35 5/6/18 12:30 111/66 5/6/18 12:30 111 33 111/66 98 Mechanical Ventilator 35 5/6/18 12:15 134/74 5/6/18 12:09 99.5 5/6/18 12:00 35 5/6/18 12:00 35 134/53 5/6/18 12:00 134/53 5/6/18 12:00 99.5 105 35 134/53 100 Mechanical Ventilator 35 99.5 5/6/18 12:00 94 5/6/18 11:45 101 35 131/63 100 Mechanical Ventilator 35 5/6/18 11:30 131/70 5/6/18 11:30 94 34 131/70 100 Mechanical Ventilator 35 5/6/18 11:15 82 34 125/66 100 Mechanical Ventilator 35 5/6/18 11:00 34 126/67 5/6/18 11:00 126/67 5/6/18 11:00 80 34 126/67 100 Mechanical Ventilator 35 5/6/18 10:56 77/52 5/6/18 10:45 80 34 74/31 100 Mechanical Ventilator 35 5/6/18 10:39 100 33 35 5/6/18 10:30 93 33 90/31 99 Mechanical Ventilator 35 5/6/18 10:22 100.0 5/6/18 10:00 100.0 103 35 116/57 99 Mechanical Ventilator 35 100.0 5/6/18 10:00 35 116/57 5/6/18 09:53 36 116/50 5/6/18 09:30 104 34 117/59 98 Mechanical Ventilator 35 5/6/18 09:00 36 107/61 5/6/18 09:00 101 35 107/61 98 Mechanical Ventilator 35 5/6/18 08:57 99 33 35 5/6/18 08:30 95 35 100/59 95 Mechanical Ventilator 35 5/6/18 08:00 100.2 96 35 100/59 95 Mechanical Ventilator 35 100.2 07/31/17 08:00 35 07/31/17 08:00 35 100/59 07/31/17 08:00 98 07/31/17 07:30 35 07/31/17 07:30 99 34 113/55 93 Mechanical Ventilator 35 Intake and Output 07/31/17 08/01/17 19:00 07:00 Intake Total 2433.167 ml 2419.465 ml Output Total 80 ml 205 ml Balance 2353.167 ml 2214.465 ml Intake Oral 0 ml 0 ml IV Total 2433.167 ml 2419.465 ml Output Urine Total 80 ml 205 ml Hemodialysis UF 0 ml # Bowel Movements 1 Laboratory Tests 07/31/17 13:45: White Blood Count 11.7H, Red Blood Count 3.65L, Hemoglobin 7.8L, Hematocrit 24.2L, Mean Corpuscular Volume 66L, Mean Corpuscular Hemoglobin 21.4L, Mean Corpuscular Hemoglobin Concent 32.3, Red Cell Distribution Width 15.0H, Platelet Count 224, Mean Platelet Volume 7.3, Neutrophils (%) (Auto) , Lymphocytes (%) (Auto) , Monocytes (%) (Auto) , Eosinophils (%) (Auto) , Basophils (%) (Auto) , Differential Total Cells Counted 100, Neutrophils % ( Manual) 73, Lymphocytes % (Manual) 12L, Monocytes % (Manual) 4, Eosinophils % ( Manual) 0, Basophils % (Manual) 0, Band Neutrophils 11H, Platelet Estimate Adequate, Platelet Morphology Normal, Hypochromasia 1+, Anisocytosis 1+, Potassium Level 2.7*L, Phosphorus Level 3.1 07/31/17 14:00: Arterial Blood pH 7.214*L, Arterial Blood Partial Pressure CO2 35.5, Arterial Blood Partial Pressure O2 182.6H, Arterial Blood HCO3 14.0L, Arterial Blood Oxygen Saturation 98.7H, Arterial Blood Base Excess -12.8, Ravi Test Positive 07/31/17 14:30: Potassium Level 3.1L, Sodium Level 134L, Chloride Level 102, Carbon Dioxide Level 12L, Anion Gap 20H, Blood Urea Nitrogen 49H, Creatinine 4.0H, Estimat Glomerular Filtration Rate 11.9, Glucose Level 128H, Calcium Level 8.7 07/31/17 18:14: Ionized Calcium (Measured) 1.08L 5/6/18 20:20: Prothrombin Time 9.4, Prothromb Time International Ratio 0.9, Activated Partial Thromboplast Time 32, Random Vancomycin Level 20.8 07/31/17 23:48: Sodium Level 139, Potassium Level 2.3*L, Chloride Level 103, Carbon Dioxide Level 23, Anion Gap 13, Blood Urea Nitrogen 31H, Creatinine 3.0H, Estimat Glomerular Filtration Rate 16.6, Glucose Level 135H, Calcium Level 7.9L 08/01/17 04:00: Sodium Level 140, Potassium Level 2.4*L, Chloride Level 103, Carbon Dioxide Level 22, Anion Gap 15, Blood Urea Nitrogen 33H, Creatinine 3.3H, Estimat Glomerular Filtration Rate 14.9, Glucose Level 143H, Calcium Level 8.0L, White Blood Count 13.1H, Red Blood Count 3.57L, Hemoglobin 7.6L, Hematocrit 23.3L, Mean Corpuscular Volume 65L, Mean Corpuscular Hemoglobin 21.2L, Mean Corpuscular Hemoglobin Concent 32.5, Red Cell Distribution Width 14.7, Platelet Count 247, Mean Platelet Volume 7.0, Neutrophils (%) (Auto) , Lymphocytes (%) ( Auto) , Monocytes (%) (Auto) , Eosinophils (%) (Auto) , Basophils (%) (Auto) , Neutrophils % (Manual) [Pending], Lymphocytes % (Manual) [Pending], Platelet Estimate [Pending], Platelet Morphology [Pending], Total Bilirubin 0.6, Aspartate Amino Transf (AST/SGOT) 26, Alanine Aminotransferase (ALT/SGPT) 18, Alkaline Phosphatase 244H, Total Protein 5.1L, Albumin 1.0L, Globulin 4.1, Albumin/Globulin Ratio 0.2L Height (Feet): 5 Height (Inches): 5.00 Weight (Pounds): 298 General Appearance: severe distress EENT: other - ETT Neck: normal alignment Cardiovascular: tachycardia Respiratory/Chest: decreased breath sounds Abdomen: normal bowel sounds Pelvis: normal external exam Objective Current Medications Medications (Trade) Dose Ordered Sig/Tommy Route PRN Reason Start Time Stop Time Status Last Admin Dose Admin Acetaminophen (Tylenol) 650 mg EVERY 6 HOURS PRN RECTAL Mild Pain (Pain Scale 1-3) 07/30/17 17:54 08/29/17 17:53 5/6/18 10:22 Chlorhexidine Gluconate (Idalia-Hex 2%) 1 applic DAILY@2000 TOPIC 07/30/17 20:00 08/29/17 19:59 07/31/17 20:08 Dextrose (Dextrose 50%) 25 ml PRN PRN IV HYPOGLYCEMIA 07/30/17 10:30 08/29/17 10:29 Dextrose (Dextrose 50%) 50 ml PRN PRN IV HYPOGLYCEMIA 07/30/17 11:00 08/29/17 10:59 Fentanyl Citrate 1000 mcg/Sodium Chloride 100 ml @ 0 mls/hr Q24H IV 07/31/17 18:30 08/07/17 18:29 07/31/17 22:11 Heparin Sodium (Porcine) (Heparin 5000 units/ml) 5,000 units EVERY 8 HOURS SUBQ 07/29/17 22:00 08/28/17 21:59 08/01/17 05:44 Insulin Human Regular (NovoLIN R) 5 units PRN PRN IV BS 200-299 07/30/17 11:00 08/29/17 10:59 07/31/17 11:58 Insulin Human Regular (NovoLIN R) 10 units PRN PRN IV BS=>300 07/30/17 11:00 08/29/17 10:59 Insulin Human Regular 100 units/ Sodium Chloride 101 ml @ 0 mls/hr Q24H IV 07/30/17 14:00 08/29/17 13:59 07/31/17 06:11 Miscellaneous Medication (Insulin Rate Change) 1 ea PRN PRN MISC Hyperglycemia 07/30/17 11:00 08/29/17 10:59 07/31/17 16:24 Norepinephrine Bitartrate 8 mg/ Dextrose 250 ml @ 0 mls/hr Q24H IV 07/30/17 08:00 08/29/17 07:59 07/31/17 10:56 Pantoprazole (Protonix) 40 mg DAILY IVP 07/30/17 09:00 08/29/17 08:59 07/31/17 09:21 Piperacillin Sod/ Tazobactam Sod 3.375 gm/Sodium Chloride 110 ml @ 27.5 mls/hr EVERY 8 HOURS IVPB 07/29/17 22:00 08/03/17 21:59 08/01/17 05:40 Potassium Chloride 100 ml @ 100 mls/hr Q1H IVPB 08/01/17 06:00 08/01/17 09:59 08/01/17 06:59 Sodium Bicarbonate 150 ml/Dextrose 1,150 ml @ 75 mls/hr [id number] IV 07/30/17 12:00 08/28/17 11:59 07/31/17 04:07 Sodium Chloride 1,000 ml @ 100 mls/hr Q10H IV 07/31/17 07:00 08/29/17 06:59 08/01/17 01:04 Vancomycin HCl (Vanco rx to dose) 1 ea DAILY PRN MISC Per rx protocol 07/29/17 16:00 08/28/17 15:59 Vancomycin HCl 1 gm/Dextrose 275 ml @ 183.708 mls/hr ONCE ONCE IVPB 08/01/17 09:00 08/01/17 10:29 Item Value Date Time Bedside Blood Glucose 152 mg/dl H 08/01/17 0600 Bedside Blood Glucose 134 mg/dl H 08/01/17 0200 Bedside Blood Glucose 142 mg/dl H 07/31/17 2200 Bedside Blood Glucose 165 mg/dl H 07/31/17 1800 Bedside Blood Glucose 120 mg/dl 07/31/17 1408 Bedside Blood Glucose 157 mg/dl H 07/31/17 1006 Bedside Blood Glucose 162 mg/dl H 07/31/17 0611 SAQIB TOM August 01, 2017 07:09
[2017-08-01] MEDS: Insulin Rate Change 1 Each MISC PRN ×2 (08:09→14:03)
[2017-08-01] MEDS ORDERED: Calcium Gluconate 1gm/10ml vial IVP ONE (08:30)
--- NOTE | 2017-08-01 08:34 | Nephrology Progress Note ---
Assessment/Plan Assessment/Plan 1. SCARLET- HD yesterday for refractory metabolic acidosis - multifact ATN (sepsis induced inflammotory cytokine prox tub damage/ ishchemic ATN hypotension/vol dep) - Hold HD today and monitor today. Patient much improved 2. DKA/Met Acidosis- resolved post HD. Patient much more hemodynamically stable. Monitor and wean off pressor today - due hypoperfusion 3. Septic Shock- etiology likely from abd cellulitis. Abx mgmt per ID - Gen surg evaluating abdomen paniculitis 4. Hypotension-Wean off pressor. BP improved, maintain MAP >65 mmHg 5. Resp FL- intubated on ventilator per [facility] management 6. Hypok+/Ca- being aggressively replaced Subjective Date patient seen: August 01, 2017 Time patient seen: 08:22 ROS Limited/Unobtainable: Yes Allergies: Coded Allergies: PENICILLINS (Verified Allergy, Unknown, 07/30/17) According to mother, the patient is allergic to Penicillins Subjective Patient remains intubated on the vent. Much improved Objective Last 24 Hour Vital Signs Date Time Temp Pulse Resp B/P (MAP) Pulse Ox O2 Delivery O2 Flow Rate FiO2 08/01/17 07:29 92 26 35 08/01/17 07:00 24 08/01/17 07:00 87 24 97/37 95 Mechanical Ventilator 35 08/01/17 06:30 86 24 107/42 96 Mechanical Ventilator 35 08/01/17 06:00 83 24 94/35 93 Mechanical Ventilator 35 08/01/17 06:00 24 08/01/17 05:30 82 24 80/31 94 Mechanical Ventilator 35 08/01/17 05:05 87 24 35 08/01/17 05:00 24 08/01/17 05:00 85 24 86/32 93 Mechanical Ventilator 35 08/01/17 04:30 92 25 102/34 94 Mechanical Ventilator 35 08/01/17 04:00 35 08/01/17 04:00 99.2 92 20 96/40 94 Mechanical Ventilator 35 99.2 08/01/17 04:00 92 08/01/17 04:00 24 08/01/17 03:30 90 26 35 08/01/17 03:30 100 27 109/46 93 Mechanical Ventilator 35 08/01/17 03:00 30 08/01/17 03:00 105 28 140/54 93 Mechanical Ventilator 35 5/7/18 02:30 101 25 137/56 93 Mechanical Ventilator 35 5/7/18 02:15 104 28 134/54 93 Mechanical Ventilator 35 5/7/18 02:00 103 26 152/65 95 Mechanical Ventilator 35 5/7/18 02:00 19 5/7/18 01:45 99 24 155/63 95 Mechanical Ventilator 35 5/7/18 01:30 98 32 35 5/7/18 01:30 96 26 123/45 95 Mechanical Ventilator 35 5/7/18 01:00 93 27 119/45 96 Mechanical Ventilator 35 5/7/18 01:00 27 5/7/18 00:30 86 13 115/52 96 Mechanical Ventilator 35 5/7/18 00:00 35 5/7/18 00:00 86 5/7/18 00:00 17 5/7/18 00:00 99.3 86 18 104/41 96 Mechanical Ventilator 35 99.3 5/6/18 23:30 88 18 131/56 95 Mechanical Ventilator 35 5/6/18 23:29 86 24 35 5/6/18 23:15 86 18 111/43 95 Mechanical Ventilator 35 5/6/18 23:00 16 5/6/18 23:00 86 18 115/43 95 Mechanical Ventilator 35 5/6/18 22:45 86 18 123/44 95 Mechanical Ventilator 35 5/6/18 22:30 87 27 123/44 95 Mechanical Ventilator 35 5/6/18 22:30 99.1 5/6/18 22:11 37 5/6/18 22:00 102 31 174/62 94 Mechanical Ventilator 35 5/6/18 21:53 Mechanical Ventilator 35 5/6/18 21:51 99.1 96 36 175/69 Mechanical Ventilator 35 99.1 5/6/18 21:45 97 31 167/72 94 Mechanical Ventilator 35 5/6/18 21:18 94 27 35 5/6/18 21:15 94 30 175/69 94 Mechanical Ventilator 35 5/6/18 21:00 93 34 143/58 93 Mechanical Ventilator 35 5/6/18 20:45 95 34 174/66 95 Mechanical Ventilator 35 5/6/18 20:30 96 33 169/67 94 Mechanical Ventilator 35 5/6/18 20:15 93 34 177/59 95 Mechanical Ventilator 35 5/6/18 20:00 93 33 182/65 95 Mechanical Ventilator 35 5/6/18 20:00 35 5/6/18 20:00 93 5/6/18 19:45 89 33 161/64 95 Mechanical Ventilator 35 5/6/18 19:30 89 34 184/63 94 Mechanical Ventilator 35 5/6/18 19:30 92 36 35 5/6/18 19:15 91 34 182/69 94 Mechanical Ventilator 35 5/6/18 19:00 90 34 137/69 95 Mechanical Ventilator 35 5/6/18 18:45 91 34 155/60 94 Mechanical Ventilator 35 5/6/18 18:30 93 35 177/68 96 Mechanical Ventilator 32 5/6/18 18:00 99.3 93 36 177/68 35 99.3 5/6/18 18:00 35 5/6/18 18:00 99.2 91 33 167/61 96 Mechanical Ventilator 32 99.2 5/6/18 18:00 33 167/61 5/6/18 18:00 167/61 5/6/18 17:30 88 33 155/59 97 Mechanical Ventilator 32 5/6/18 17:00 94 33 35 5/6/18 17:00 32 99/55 5/6/18 17:00 99/55 5/6/18 17:00 83 32 99/55 98 Mechanical Ventilator 32 5/6/18 16:30 86 27 118/60 98 Mechanical Ventilator 35 5/6/18 16:00 85 5/6/18 16:00 99.1 83 27 138/67 98 Mechanical Ventilator 35 99.1 5/6/18 16:00 35 5/6/18 16:00 27 138/67 5/6/18 16:00 138/67 5/6/18 15:30 97 32 104/64 95 Mechanical Ventilator 35 5/6/18 15:30 104/64 5/6/18 15:15 78/35 5/6/18 15:01 91 35 35 5/6/18 15:00 95 33 84/36 95 Mechanical Ventilator 35 5/6/18 15:00 33 84/36 5/6/18 15:00 84/36 5/6/18 14:45 101 28 104/55 96 Mechanical Ventilator 35 5/6/18 14:30 103 27 104/53 96 Mechanical Ventilator 35 5/6/18 14:15 100 27 96/61 95 Mechanical Ventilator 35 5/6/18 14:00 100 30 96/58 95 Mechanical Ventilator 35 5/6/18 13:45 100 30 103/52 95 Mechanical Ventilator 35 5/6/18 13:30 95 29 105/64 97 Mechanical Ventilator 35 5/6/18 13:15 95 29 105/64 97 Mechanical Ventilator 35 5/6/18 13:00 106 33 112/50 96 Mechanical Ventilator 35 5/6/18 13:00 33 112/50 5/6/18 12:45 109 32 115/63 97 Mechanical Ventilator 35 5/6/18 12:32 96 33 35 5/6/18 12:30 111/66 5/6/18 12:30 111 33 111/66 98 Mechanical Ventilator 35 5/6/18 12:15 134/74 5/6/18 12:09 99.5 5/6/18 12:00 35 5/6/18 12:00 35 134/53 5/6/18 12:00 134/53 5/6/18 12:00 99.5 105 35 134/53 100 Mechanical Ventilator 35 99.5 5/6/18 12:00 94 5/6/18 11:45 101 35 131/63 100 Mechanical Ventilator 35 5/6/18 11:30 131/70 5/6/18 11:30 94 34 131/70 100 Mechanical Ventilator 35 5/6/18 11:15 82 34 125/66 100 Mechanical Ventilator 35 5/6/18 11:00 34 126/67 5/6/18 11:00 126/67 5/6/18 11:00 80 34 126/67 100 Mechanical Ventilator 35 5/6/18 10:56 77/52 5/6/18 10:45 80 34 74/31 100 Mechanical Ventilator 35 5/6/18 10:39 100 33 35 5/6/18 10:30 93 33 90/31 99 Mechanical Ventilator 35 5/6/18 10:22 100.0 5/6/18 10:00 100.0 103 35 116/57 99 Mechanical Ventilator 35 100.0 5/6/18 10:00 35 116/57 5/6/18 09:53 36 116/50 5/6/18 09:30 104 34 117/59 98 Mechanical Ventilator 35 5/6/18 09:00 36 107/61 5/6/18 09:00 101 35 107/61 98 Mechanical Ventilator 35 5/6/18 08:57 99 33 35 07/31/17 08:30 95 35 100/59 95 Mechanical Ventilator 35 Intake and Output 07/31/17 08/01/17 19:00 07:00 Intake Total 2433.167 ml 2736.265 ml Output Total 80 ml 220 ml Balance 2353.167 ml 2516.265 ml Intake Oral 0 ml 0 ml IV Total 2433.167 ml 2736.265 ml Output Urine Total 80 ml 220 ml Hemodialysis UF 0 ml # Bowel Movements 1 Laboratory Tests 07/31/17 13:45: White Blood Count 11.7H, Red Blood Count 3.65L, Hemoglobin 7.8L, Hematocrit 24.2L, Mean Corpuscular Volume 66L, Mean Corpuscular Hemoglobin 21.4L, Mean Corpuscular Hemoglobin Concent 32.3, Red Cell Distribution Width 15.0H, Platelet Count 224, Mean Platelet Volume 7.3, Neutrophils (%) (Auto) , Lymphocytes (%) (Auto) , Monocytes (%) (Auto) , Eosinophils (%) (Auto) , Basophils (%) (Auto) , Differential Total Cells Counted 100, Neutrophils % ( Manual) 73, Lymphocytes % (Manual) 12L, Monocytes % (Manual) 4, Eosinophils % ( Manual) 0, Basophils % (Manual) 0, Band Neutrophils 11H, Platelet Estimate Adequate, Platelet Morphology Normal, Hypochromasia 1+, Anisocytosis 1+, Potassium Level 2.7*L, Phosphorus Level 3.1 07/31/17 14:00: Arterial Blood pH 7.214*L, Arterial Blood Partial Pressure CO2 35.5, Arterial Blood Partial Pressure O2 182.6H, Arterial Blood HCO3 14.0L, Arterial Blood Oxygen Saturation 98.7H, Arterial Blood Base Excess -12.8, Ravi Test Positive 07/31/17 14:30: Potassium Level 3.1L, Sodium Level 134L, Chloride Level 102, Carbon Dioxide Level 12L, Anion Gap 20H, Blood Urea Nitrogen 49H, Creatinine 4.0H, Estimat Glomerular Filtration Rate 11.9, Glucose Level 128H, Calcium Level 8.7 07/31/17 18:14: Ionized Calcium (Measured) 1.08L 07/31/17 20:20: Prothrombin Time 9.4, Prothromb Time International Ratio 0.9, Activated Partial Thromboplast Time 32, Random Vancomycin Level 20.8 07/31/17 23:48: Sodium Level 139, Potassium Level 2.3*L, Chloride Level 103, Carbon Dioxide Level 23, Anion Gap 13, Blood Urea Nitrogen 31H, Creatinine 3.0H, Estimat Glomerular Filtration Rate 16.6, Glucose Level 135H, Calcium Level 7.9L 08/01/17 04:00: Sodium Level 140, Potassium Level 2.4*L, Chloride Level 103, Carbon Dioxide Level 22, Anion Gap 15, Blood Urea Nitrogen 33H, Creatinine 3.3H, Estimat Glomerular Filtration Rate 14.9, Glucose Level 143H, Calcium Level 8.0L, White Blood Count 13.1H, Red Blood Count 3.57L, Hemoglobin 7.6L, Hematocrit 23.3L, Mean Corpuscular Volume 65L, Mean Corpuscular Hemoglobin 21.2L, Mean Corpuscular Hemoglobin Concent 32.5, Red Cell Distribution Width 14.7, Platelet Count 247, Mean Platelet Volume 7.0, Neutrophils (%) (Auto) , Lymphocytes (%) ( Auto) , Monocytes (%) (Auto) , Eosinophils (%) (Auto) , Basophils (%) (Auto) , Differential Total Cells Counted 100, Neutrophils % (Manual) 81H, Lymphocytes % (Manual) 8L, Monocytes % (Manual) 5, Eosinophils % (Manual) 0, Basophils % ( Manual) 0, Band Neutrophils 6, Platelet Estimate Adequate, Platelet Morphology Normal, Hypochromasia 1+, Anisocytosis 1+, Target Cells 1+, Total Bilirubin 0.6 , Aspartate Amino Transf (AST/SGOT) 26, Alanine Aminotransferase (ALT/SGPT) 18, Alkaline Phosphatase 244H, Total Protein 5.1L, Albumin 1.0L, Globulin 4.1, Albumin/Globulin Ratio 0.2L 08/01/17 07:46: Arterial Blood pH 7.500H, Arterial Blood Partial Pressure CO2 30.7L, Arterial Blood Partial Pressure O2 144.7H, Arterial Blood HCO3 23.6, Arterial Blood Oxygen Saturation 98.6H, Arterial Blood Base Excess 0.7, Ravi Test Positive Height (Feet): 5 Height (Inches): 5.00 Weight (Pounds): 298 General Appearance: WD/WN, no apparent distress EENT: PERRL/EOMI, normal ENT inspection Neck: non-tender, normal alignment Cardiovascular: normal peripheral pulses, normal rate Respiratory/Chest: chest wall non-tender, lungs clear, normal breath sounds Abdomen: normal bowel sounds, non tender, other - erythema Edema: 1+ Pedal (L), 1+ Pedal (R) Carlton Guzmán M.D. August 01, 2017 08:34
[2017-08-01] MEDS ORDERED: Vancomycin 1gm/D5W 275ml IVPB ONE ×2 (09:00)
[2017-08-01] MEDS: Pantoprazole Inj IVP SCH (09:15)
[2017-08-01] MEDS: D5NS 1,000 ML IV SCH ×2 (09:15→22:47)
--- NOTE | 2017-08-01 09:16 | Diagnostic Imaging Report ---
Indication:Elevated Bun and Creatinine. Technique: Grayscale and duplex Doppler imaging of the kidneys performed. Comparison: None Findings: Study is limited by body habitus. The right kidney is about 14 cm. Left kidney is between 12 and 13 cm. There is a Shepherd catheter. No obvious hydronephrosis or renal stones are appreciated. There is a probable cyst in the upper pole right kidney measuring about 1.7 x 0.9 cm. IMPRESSION: Limited study due to body habitus. Portions of renal anatomy not well visualized on this study. Right renal cyst noted
[2017-08-01] MEDS ORDERED: Calcium Gluconate 1gm in NS 110ml IVPB ONE (09:30)
[2017-08-01] MEDS ORDERED: Etomidate 40mg/20ml Inj IV ONE (09:58)
[2017-08-01] MEDS ORDERED: Succinylcholine 20mg/ml 10ml vial ONE (09:58)
[2017-08-01] MEDS ORDERED: Tubing IV Secondary IV ONE ×3 (10:00→10:07)
[2017-08-01] MEDS ORDERED: NS 275ml ONE (10:00)
[2017-08-01] MEDS ORDERED: Tubing Blood Filter IV ONE (10:00)
--- NOTE | 2017-08-01 10:05 | General Surgery Progress Note ---
General Surgery-Progress Note Objective Last 24 Hour Vital Signs Date Time Temp Pulse Resp B/P (MAP) Pulse Ox O2 Delivery O2 Flow Rate FiO2 08/01/17 08:30 94 26 113/47 94 Mechanical Ventilator 35 08/01/17 08:00 35 08/01/17 08:00 101.1 98 24 121/40 92 Mechanical Ventilator 35 101.1 08/01/17 08:00 101 08/01/17 07:30 92 24 95/34 92 Mechanical Ventilator 35 08/01/17 07:29 92 26 35 08/01/17 07:00 24 08/01/17 07:00 87 24 97/37 95 Mechanical Ventilator 35 08/01/17 06:30 86 24 107/42 96 Mechanical Ventilator 35 08/01/17 06:00 83 24 94/35 93 Mechanical Ventilator 35 08/01/17 06:00 24 08/01/17 05:30 82 24 80/31 94 Mechanical Ventilator 35 08/01/17 05:05 87 24 35 08/01/17 05:00 24 08/01/17 05:00 85 24 86/32 93 Mechanical Ventilator 35 08/01/17 04:30 92 25 102/34 94 Mechanical Ventilator 35 08/01/17 04:00 35 08/01/17 04:00 99.2 92 20 96/40 94 Mechanical Ventilator 35 99.2 08/01/17 04:00 92 08/01/17 04:00 24 08/01/17 03:30 90 26 35 08/01/17 03:30 100 27 109/46 93 Mechanical Ventilator 35 08/01/17 03:00 30 08/01/17 03:00 105 28 140/54 93 Mechanical Ventilator 35 08/01/17 02:30 101 25 137/56 93 Mechanical Ventilator 35 08/01/17 02:15 104 28 134/54 93 Mechanical Ventilator 35 08/01/17 02:00 103 26 152/65 95 Mechanical Ventilator 35 08/01/17 02:00 19 08/01/17 01:45 99 24 155/63 95 Mechanical Ventilator 35 08/01/17 01:30 98 32 35 08/01/17 01:30 96 26 123/45 95 Mechanical Ventilator 35 08/01/17 01:00 93 27 119/45 96 Mechanical Ventilator 35 08/01/ 01:00 27 08/01/17 00:30 86 13 115/52 96 Mechanical Ventilator 35 5/7/18 00:00 35 5/7/18 00:00 86 5/7/18 00:00 17 5/7/18 00:00 99.3 86 18 104/41 96 Mechanical Ventilator 35 99.3 5/6/18 23:30 88 18 131/56 95 Mechanical Ventilator 35 5/6/18 23:29 86 24 35 5/6/18 23:15 86 18 111/43 95 Mechanical Ventilator 35 5/6/18 23:00 16 5/6/18 23:00 86 18 115/43 95 Mechanical Ventilator 35 5/6/18 22:45 86 18 123/44 95 Mechanical Ventilator 35 5/6/18 22:30 87 27 123/44 95 Mechanical Ventilator 35 5/6/18 22:30 99.1 5/6/18 22:11 37 5/6/18 22:00 102 31 174/62 94 Mechanical Ventilator 35 5/6/18 21:53 Mechanical Ventilator 35 5/6/18 21:51 99.1 96 36 175/69 Mechanical Ventilator 35 99.1 5/6/18 21:45 97 31 167/72 94 Mechanical Ventilator 35 5/6/18 21:18 94 27 35 5/6/18 21:15 94 30 175/69 94 Mechanical Ventilator 35 5/6/18 21:00 93 34 143/58 93 Mechanical Ventilator 35 5/6/18 20:45 95 34 174/66 95 Mechanical Ventilator 35 5/6/18 20:30 96 33 169/67 94 Mechanical Ventilator 35 5/6/18 20:15 93 34 177/59 95 Mechanical Ventilator 35 5/6/18 20:00 93 33 182/65 95 Mechanical Ventilator 35 5/6/18 20:00 35 5/6/18 20:00 93 5/6/18 19:45 89 33 161/64 95 Mechanical Ventilator 35 5/6/18 19:30 89 34 184/63 94 Mechanical Ventilator 35 5/6/18 19:30 92 36 35 5/6/18 19:15 91 34 182/69 94 Mechanical Ventilator 35 5/6/18 19:00 90 34 137/69 95 Mechanical Ventilator 35 5/6/18 18:45 91 34 155/60 94 Mechanical Ventilator 35 5/6/18 18:30 93 35 177/68 96 Mechanical Ventilator 32 5/6/18 18:00 99.3 93 36 177/68 35 99.3 5/6/18 18:00 35 5/6/18 18:00 99.2 91 33 167/61 96 Mechanical Ventilator 32 99.2 5/6/18 18:00 33 167/61 5/6/18 18:00 167/61 5/6/18 17:30 88 33 155/59 97 Mechanical Ventilator 32 5/6/18 17:00 94 33 35 5/6/18 17:00 32 99/55 5/6/18 17:00 99/55 5/6/18 17:00 83 32 99/55 98 Mechanical Ventilator 32 5/6/18 16:30 86 27 118/60 98 Mechanical Ventilator 35 5/6/18 16:00 85 5/6/18 16:00 99.1 83 27 138/67 98 Mechanical Ventilator 35 99.1 5/6/18 16:00 35 5/6/18 16:00 27 138/67 5/6/18 16:00 138/67 5/6/18 15:30 97 32 104/64 95 Mechanical Ventilator 35 5/6/18 15:30 104/64 5/6/18 15:15 78/35 5/6/18 15:01 91 35 35 5/6/18 15:00 95 33 84/36 95 Mechanical Ventilator 35 5/6/18 15:00 33 84/36 5/6/18 15:00 84/36 5/6/18 14:45 101 28 104/55 96 Mechanical Ventilator 35 5/6/18 14:30 103 27 104/53 96 Mechanical Ventilator 35 5/6/18 14:15 100 27 96/61 95 Mechanical Ventilator 35 5/6/18 14:00 100 30 96/58 95 Mechanical Ventilator 35 5/6/18 13:45 100 30 103/52 95 Mechanical Ventilator 35 5/6/18 13:30 95 29 105/64 97 Mechanical Ventilator 35 5/6/18 13:15 95 29 105/64 97 Mechanical Ventilator 35 5/6/18 13:00 106 33 112/50 96 Mechanical Ventilator 35 5/6/18 13:00 33 112/50 5/6/18 12:45 109 32 115/63 97 Mechanical Ventilator 35 5/6/18 12:32 96 33 35 5/6/18 12:30 111/66 5/6/18 12:30 111 33 111/66 98 Mechanical Ventilator 35 07/31/17 12:15 134/74 07/31/17 12:09 99.5 07/31/17 12:00 35 07/31/17 12:00 35 134/53 07/31/17 12:00 134/53 07/31/17 12:00 99.5 105 35 134/53 100 Mechanical Ventilator 35 99.5 07/31/17 12:00 94 07/31/17 11:45 101 35 131/63 100 Mechanical Ventilator 35 07/31/17 11:30 131/70 07/31/17 11:30 94 34 131/70 100 Mechanical Ventilator 35 07/31/17 11:15 82 34 125/66 100 Mechanical Ventilator 35 07/31/17 11:00 34 126/67 07/31/17 11:00 126/67 07/31/17 11:00 80 34 126/67 100 Mechanical Ventilator 35 07/31/17 10:56 77/52 07/31/17 10:45 80 34 74/31 100 Mechanical Ventilator 35 07/31/17 10:39 100 33 35 07/31/17 10:30 93 33 90/31 99 Mechanical Ventilator 35 07/31/17 10:22 100.0 I&O Intake and Output 07/31/17 08/01/17 19:00 07:00 Intake Total 2433.167 ml 2736.265 ml Output Total 80 ml 220 ml Balance 2353.167 ml 2516.265 ml Intake Oral 0 ml 0 ml IV Total 2433.167 ml 2736.265 ml Output Urine Total 80 ml 220 ml Hemodialysis UF 0 ml # Bowel Movements 1 Respiratory: clear Abdomen: other - obese soft erythema at lower LLQ has improved Laboratory Tests Test 07/31/17 13:45 07/31/17 14:00 07/31/17 14:30 07/31/17 18:14 White Blood Count 11.7 K/UL (4.8-10.8) H Red Blood Count 3.65 M/UL (4.20-5.40) L Hemoglobin 7.8 G/DL (12.0-16.0) L Hematocrit 24.2 % (37.0-47.0) L Mean Corpuscular Volume 66 FL (80-99) L Mean Corpuscular Hemoglobin 21.4 PG (27.0-31.0) L Mean Corpuscular Hemoglobin Concent 32.3 G/DL (32.0-36.0) Red Cell Distribution Width 15.0 % (11.6-14.8) H Platelet Count 224 K/UL (150-450) Mean Platelet Volume 7.3 FL (6.5-10.1) Neutrophils (%) (Auto) % (45.0-75.0) Lymphocytes (%) (Auto) % (20.0-45.0) Monocytes (%) (Auto) % (1.0-10.0) Eosinophils (%) (Auto) % (0.0-3.0) Basophils (%) (Auto) % (0.0-2.0) Differential Total Cells Counted 100 Neutrophils % (Manual) 73 % (45-75) Lymphocytes % (Manual) 12 % (20-45) L Monocytes % (Manual) 4 % (1-10) Eosinophils % (Manual) 0 % (0-3) Basophils % (Manual) 0 % (0-2) Band Neutrophils 11 % (0-8) H Platelet Estimate Adequate Platelet Morphology Normal Hypochromasia 1+ Anisocytosis 1+ Potassium Level 2.7 MMOL/L (3.5-5.1) *L 3.1 MMOL/L (3.5-5.1) L Phosphorus Level 3.1 MG/DL (2.5-4.9) Arterial Blood pH 7.214 (7.350-7.450) Arterial Blood Partial Pressure CO2 35.5 mmHg (35.0-45.0) Arterial Blood Partial Pressure O2 182.6 mmHg (75.0-100.0) H Arterial Blood HCO3 14.0 mmol/L (22.0-26.0) L Arterial Blood Oxygen Saturation 98.7 % (92.0-98.0) H Arterial Blood Base Excess -12.8 Ravi Test Positive Sodium Level 134 MMOL/L (136-145) L Chloride Level 102 MMOL/L (98-107) Carbon Dioxide Level 12 MMOL/L (21-32) L Anion Gap 20 mmol/L (5-15) H Blood Urea Nitrogen 49 mg/dL (7-18) H Creatinine 4.0 MG/DL (0.55-1.30) H Estimat Glomerular Filtration Rate 11.9 mL/min (>60) Glucose Level 128 MG/DL (74-106) H Calcium Level 8.7 MG/DL (8.5-10.1) Ionized Calcium (Measured) 1.08 mmol/L (1.10-1.35) L Test 07/31/17 20:20 07/31/17 23:48 08/01/17 04:00 08/01/17 07:46 Prothrombin Time 9.4 SEC (9.30-11.50) Prothromb Time International Ratio 0.9 (0.9-1.1) Activated Partial Thromboplast Time 32 SEC (23-33) Random Vancomycin Level 20.8 ug/mL Sodium Level 139 MMOL/L (136-145) 140 MMOL/L (136-145) Potassium Level 2.3 MMOL/L (3.5-5.1) *L 2.4 MMOL/L (3.5-5.1) *L Chloride Level 103 MMOL/L (98-107) 103 MMOL/L (98-107) Carbon Dioxide Level 23 MMOL/L (21-32) 22 MMOL/L (21-32) Anion Gap 13 mmol/L (5-15) 15 mmol/L (5-15) Blood Urea Nitrogen 31 mg/dL (7-18) H 33 mg/dL (7-18) H Creatinine 3.0 MG/DL (0.55-1.30) H 3.3 MG/DL (0.55-1.30) H Estimat Glomerular Filtration Rate 16.6 mL/min (>60) 14.9 mL/min (>60) Glucose Level 135 MG/DL (74-106) H 143 MG/DL (74-106) H Calcium Level 7.9 MG/DL (8.5-10.1) L 8.0 MG/DL (8.5-10.1) L White Blood Count 13.1 K/UL (4.8-10.8) H Red Blood Count 3.57 M/UL (4.20-5.40) L Hemoglobin 7.6 G/DL (12.0-16.0) L Hematocrit 23.3 % (37.0-47.0) L Mean Corpuscular Volume 65 FL (80-99) L Mean Corpuscular Hemoglobin 21.2 PG (27.0-31.0) L Mean Corpuscular Hemoglobin Concent 32.5 G/DL (32.0-36.0) Red Cell Distribution Width 14.7 % (11.6-14.8) Platelet Count 247 K/UL (150-450) Mean Platelet Volume 7.0 FL (6.5-10.1) Neutrophils (%) (Auto) % (45.0-75.0) Lymphocytes (%) (Auto) % (20.0-45.0) Monocytes (%) (Auto) % (1.0-10.0) Eosinophils (%) (Auto) % (0.0-3.0) Basophils (%) (Auto) % (0.0-2.0) Differential Total Cells Counted 100 Neutrophils % (Manual) 81 % (45-75) H Lymphocytes % (Manual) 8 % (20-45) L Monocytes % (Manual) 5 % (1-10) Eosinophils % (Manual) 0 % (0-3) Basophils % (Manual) 0 % (0-2) Band Neutrophils 6 % (0-8) Platelet Estimate Adequate Platelet Morphology Normal Hypochromasia 1+ Anisocytosis 1+ Target Cells 1+ Total Bilirubin 0.6 MG/DL (0.2-1.0) Aspartate Amino Transf (AST/SGOT) 26 U/L (15-37) Alanine Aminotransferase (ALT/SGPT) 18 U/L (12-78) Alkaline Phosphatase 244 U/L (46-116) H Total Protein 5.1 G/DL (6.4-8.2) L Albumin 1.0 G/DL (3.4-5.0) L Globulin 4.1 g/dL Albumin/Globulin Ratio 0.2 (1.0-2.7) L Arterial Blood pH 7.500 (7.350-7.450) Arterial Blood Partial Pressure CO2 30.7 mmHg (35.0-45.0) L Arterial Blood Partial Pressure O2 144.7 mmHg (75.0-100.0) H Arterial Blood HCO3 23.6 mmol/L (22.0-26.0) Arterial Blood Oxygen Saturation 98.6 % (92.0-98.0) H Arterial Blood Base Excess 0.7 Ravi Test Positive Assessment Additional Comments cellulitis of abdominal wall R/O necrotizing fasciatis Plan Additional Comments continue current treatment SALBADOR STEWART August 01, 2017 10:05
[2017-08-01 12:08] LABS: ALANINE AMINOTRANSFERASE 17 U/L (12-78); ALBUMIN/GLOBULIN RATIO 0.2 (1.0-2.7); ALKALINE PHOSPHATASE 270 U/L (46-116); ANION GAP 14 mmol/L (5-15); ASPARTATE AMINO TRANSFERASE 21 U/L (15-37); BILIRUBIN,TOTAL 0.6 MG/DL (0.2-1.0); BLOOD UREA NITROGEN 35 mg/dL (7-18); CALCIUM 7.8 MG/DL (8.5-10.1); CARBON DIOXIDE 22 MMOL/L (21-32); CHLORIDE 104 MMOL/L (98-107); CREATININE 3.6 MG/DL (0.55-1.30); SODIUM 140 MMOL/L (136-145)
[2017-08-01 12:15] LABS: POTASSIUM 2.5 MMOL/L (3.5-5.1)
--- NOTE | 2017-08-01 13:32 | Infectious Diseases Prog Note ---
Assessment/Plan Problems: (1) Cellulitis of abdominal wall Assessment & Plan: now improving on the right lower abdomen and shifting to the left lower side with infiltration at the left major labia , will order ultrasound to rule out labial abscess , and continue vancomycin and zosyn empiric coverage, since her WBC and bands are improving , surgery is following (2) UTI (urinary tract infection) Assessment & Plan: with staph aureus and streptococcus , she is already on zosyn , await final sensitivity (3) Pharyngitis, acute Assessment & Plan: already on zosyn (4) Septic shock Assessment & Plan: due to the above , await blood culture, continue vancomycin with zosyn empiric coverage and pressors for blood pressure support (5) Acute respiratory failure Assessment & Plan: due to the above, intubated on mechanical ventilation, pulmonary is following (6) SCARLET (acute kidney injury) Assessment & Plan: with aneuria , started on HD , due to the above, continue blood pressure support, nephrology is following, monitor vancomycin level closely (7) DKA (diabetic ketoacidoses) Assessment & Plan: due to poorly controlled diabetes and sepsis, S/P insulin drip in the ICU , continue close monitor of her blood glucose to keep between 80 -120 (8) Leg wound, left Assessment & Plan: with infection due to staph aureus and klebsiella oxytoca, already on zosyn and vancomycin, continue local wound care as per hospital protocol (9) New onset type 1 diabetes mellitus, uncontrolled Assessment & Plan: recommend dietitian consult and endocrinology eval Subjective ROS Limited/Unobtainable: Yes Allergies: Coded Allergies: PENICILLINS (Verified Allergy, Unknown, 07/30/17) According to mother, the patient is allergic to Penicillins Subjective she was still intubated on mechanical ventilation , responds minimally to verbal commands, on pressor for blood pressure support, has low grad fever today . redness on the lower abdomen is shifting to the left lower side of her abdomen , and less on the inner thighs, left labium is hard with possible infiltrates underneath the skin Objective Vital Signs Last 24 Hour Vital Signs Date Time Temp Pulse Resp B/P (MAP) Pulse Ox O2 Delivery O2 Flow Rate FiO2 08/01/17 11:30 30 08/01/17 11:30 90 26 125/42 97 Mechanical Ventilator 30 08/01/17 11:16 100 28 35 5/7/18 11:00 97 26 130/52 93 Mechanical Ventilator 30 5/7/18 10:30 95 27 129/44 93 Mechanical Ventilator 30 5/7/18 10:00 96 24 89/36 95 Mechanical Ventilator 30 5//18 09:30 99 25 102/44 95 Mechanical Ventilator 30 //18 09:27 98 27 35 5/7/18 09:00 100.3 98 26 111/45 96 Mechanical Ventilator 30 100.3 18 08:30 94 26 113/47 94 Mechanical Ventilator 30 08/01/ 08:00 35 5/7/18 08:00 101.1 98 24 121/40 92 Mechanical Ventilator 30 101.1 08/01/17 08:00 101 08/01/17 07:30 92 24 95/34 92 Mechanical Ventilator 35 08/01/ 07:29 92 26 35 08/01/17 07:00 24 08/01/17 07:00 87 24 97/37 95 Mechanical Ventilator 35 08/01/ 06:30 86 24 107/42 96 Mechanical Ventilator 35 08/01/17 06:00 83 24 94/35 93 Mechanical Ventilator 35 5/7/ 06:00 24 08/01/17 05:30 82 24 80/31 94 Mechanical Ventilator 35 18 05:05 87 24 35 08/01/18 05:00 24 08/01/17 05:00 85 24 86/32 93 Mechanical Ventilator 35 //18 04:30 92 25 102/34 94 Mechanical Ventilator 35 /7/18 04:00 35 7/18 04:00 99.2 92 20 96/40 94 Mechanical Ventilator 35 99.2 08/01/17 04:00 92 7/18 04:00 24 08/01/17 03:30 90 26 35 5/7/18 03:30 100 27 109/46 93 Mechanical Ventilator 35 5/7/18 03:00 30 08/01/ 03:00 105 28 140/54 93 Mechanical Ventilator 35 5/7/18 02:30 101 25 137/56 93 Mechanical Ventilator 35 5/7/18 02:15 104 28 134/54 93 Mechanical Ventilator 35 5/7/18 02:00 103 26 152/65 95 Mechanical Ventilator 35 5/7/18 02:00 19 5/7/18 01:45 99 24 155/63 95 Mechanical Ventilator 35 5/7/18 01:30 98 32 35 5/7/18 01:30 96 26 123/45 95 Mechanical Ventilator 35 5/7/18 01:00 93 27 119/45 96 Mechanical Ventilator 35 5/7/18 01:00 27 5/7/18 00:30 86 13 115/52 96 Mechanical Ventilator 35 5/7/18 00:00 35 5/7/18 00:00 86 5/7/18 00:00 17 5/7/18 00:00 99.3 86 18 104/41 96 Mechanical Ventilator 35 99.3 5/6/18 23:30 88 18 131/56 95 Mechanical Ventilator 35 5/6/18 23:29 86 24 35 5/6/18 23:15 86 18 111/43 95 Mechanical Ventilator 35 5/6/18 23:00 16 5/6/18 23:00 86 18 115/43 95 Mechanical Ventilator 35 5/6/18 22:45 86 18 123/44 95 Mechanical Ventilator 35 5/6/18 22:30 87 27 123/44 95 Mechanical Ventilator 35 5/6/18 22:30 99.1 5/6/18 22:11 37 5/6/18 22:00 102 31 174/62 94 Mechanical Ventilator 35 5/6/18 21:53 Mechanical Ventilator 35 5/6/18 21:51 99.1 96 36 175/69 Mechanical Ventilator 35 99.1 5/6/18 21:45 97 31 167/72 94 Mechanical Ventilator 35 5/6/18 21:18 94 27 35 5/6/18 21:15 94 30 175/69 94 Mechanical Ventilator 35 5/6/18 21:00 93 34 143/58 93 Mechanical Ventilator 35 5/6/18 20:45 95 34 174/66 95 Mechanical Ventilator 35 5/6/18 20:30 96 33 169/67 94 Mechanical Ventilator 35 5/6/18 20:15 93 34 177/59 95 Mechanical Ventilator 35 5/6/18 20:00 93 33 182/65 95 Mechanical Ventilator 35 5/6/18 20:00 35 5/6/18 20:00 93 5/6/18 19:45 89 33 161/64 95 Mechanical Ventilator 35 5/6/18 19:30 89 34 184/63 94 Mechanical Ventilator 35 5/6/18 19:30 92 36 35 5/6/18 19:15 91 34 182/69 94 Mechanical Ventilator 35 5/6/18 19:00 90 34 137/69 95 Mechanical Ventilator 35 5/6/18 18:45 91 34 155/60 94 Mechanical Ventilator 35 5/6/18 18:30 93 35 177/68 96 Mechanical Ventilator 32 5/6/18 18:00 99.3 93 36 177/68 35 99.3 5/6/18 18:00 35 5/6/18 18:00 99.2 91 33 167/61 96 Mechanical Ventilator 32 99.2 5/6/18 18:00 33 167/61 5/6/18 18:00 167/61 5/6/18 17:30 88 33 155/59 97 Mechanical Ventilator 32 5/6/18 17:00 94 33 35 5/6/18 17:00 32 99/55 5/6/18 17:00 99/55 5/6/18 17:00 83 32 99/55 98 Mechanical Ventilator 32 5/6/18 16:30 86 27 118/60 98 Mechanical Ventilator 35 5/6/18 16:00 85 5/6/18 16:00 99.1 83 27 138/67 98 Mechanical Ventilator 35 99.1 5/6/18 16:00 35 5/6/18 16:00 27 138/67 5/6/18 16:00 138/67 5/6/18 15:30 97 32 104/64 95 Mechanical Ventilator 35 5/6/18 15:30 104/64 5/6/18 15:15 78/35 5/6/18 15:01 91 35 35 5/6/18 15:00 95 33 84/36 95 Mechanical Ventilator 35 5/6/18 15:00 33 84/36 5/6/18 15:00 84/36 5/6/18 14:45 101 28 104/55 96 Mechanical Ventilator 35 5/6/18 14:30 103 27 104/53 96 Mechanical Ventilator 35 5/6/18 14:15 100 27 96/61 95 Mechanical Ventilator 35 5/6/18 14:00 100 30 96/58 95 Mechanical Ventilator 35 5/6/18 13:45 100 30 103/52 95 Mechanical Ventilator 35 5/6/18 13:30 95 29 105/64 97 Mechanical Ventilator 35 Height (Feet): 5 Height (Inches): 5.00 Weight (Pounds): 298 General Appearance: WD/WN, no acute distress HEENT: normocephalic, atraumatic, anicteric, mucous membranes moist, supple, no JVD Respiratory/Chest: chest wall non-tender, normal breath sounds, no respiratory distress, no accessory muscle use, decreased breath sounds Cardiovascular: normal peripheral pulses, normal rate, regular rhythm, no gallop/murmur, no JVD Abdomen: no organomegaly, non distended, no mass, no scars, hyperactive bowel sounds, tender - at the left lower skin area Genitourinary: other - left labial thickness and hardening Extremities: no cyanosis, no clubbing Skin: no rash, ulcers, other - red, thick and warm at the left lower abdomen Neurologic/Psychiatric: responsive, other - intubated on mechanical ventilation Lymphatic: no neck adenopathy, no groin adenopathy Musculoskeletal: normal muscle bulk Microbiology Date/Time Source Procedure Growth Status 07/29/17 14:45 Blood Blood Culture - Preliminary NO GROWTH AFTER 48 HOURS Resulted 07/29/17 14:30 Blood Blood Culture - Preliminary NO GROWTH AFTER 48 HOURS Resulted 07/29/17 18:30 Nasal Nares MRSA Culture - Final NO METHICILLIN RESISTANT STAPH AUREUS... Complete 07/29/17 13:55 Indwelling Cath Urine Culture - Preliminary Staphylococcus Aureus Streptococcus Species Resulted 07/29/17 21:00 Leg Left Gram Stain - Final Resulted 07/29/17 21:00 Wound Culture - Preliminary Klebsiella Oxytoca Staphylococcus Aureus Resulted 07/29/17 17:05 Rectum VRE Culture - Final NO VANCOMYCIN RESISTANT ENTEROCOCCUS ... Complete Laboratory Tests Test 07/31/17 13:45 07/31/17 14:00 07/31/17 14:30 07/31/17 18:14 White Blood Count 11.7 K/UL (4.8-10.8) H Red Blood Count 3.65 M/UL (4.20-5.40) L Hemoglobin 7.8 G/DL (12.0-16.0) L Hematocrit 24.2 % (37.0-47.0) L Mean Corpuscular Volume 66 FL (80-99) L Mean Corpuscular Hemoglobin 21.4 PG (27.0-31.0) L Mean Corpuscular Hemoglobin Concent 32.3 G/DL (32.0-36.0) Red Cell Distribution Width 15.0 % (11.6-14.8) H Platelet Count 224 K/UL (150-450) Mean Platelet Volume 7.3 FL (6.5-10.1) Neutrophils (%) (Auto) % (45.0-75.0) Lymphocytes (%) (Auto) % (20.0-45.0) Monocytes (%) (Auto) % (1.0-10.0) Eosinophils (%) (Auto) % (0.0-3.0) Basophils (%) (Auto) % (0.0-2.0) Differential Total Cells Counted 100 Neutrophils % (Manual) 73 % (45-75) Lymphocytes % (Manual) 12 % (20-45) L Monocytes % (Manual) 4 % (1-10) Eosinophils % (Manual) 0 % (0-3) Basophils % (Manual) 0 % (0-2) Band Neutrophils 11 % (0-8) H Platelet Estimate Adequate Platelet Morphology Normal Hypochromasia 1+ Anisocytosis 1+ Potassium Level 2.7 MMOL/L (3.5-5.1) *L 3.1 MMOL/L (3.5-5.1) L Phosphorus Level 3.1 MG/DL (2.5-4.9) Arterial Blood pH 7.214 (7.350-7.450) Arterial Blood Partial Pressure CO2 35.5 mmHg (35.0-45.0) Arterial Blood Partial Pressure O2 182.6 mmHg (75.0-100.0) H Arterial Blood HCO3 14.0 mmol/L (22.0-26.0) L Arterial Blood Oxygen Saturation 98.7 % (92.0-98.0) H Arterial Blood Base Excess -12.8 Ravi Test Positive Sodium Level 134 MMOL/L (136-145) L Chloride Level 102 MMOL/L (98-107) Carbon Dioxide Level 12 MMOL/L (21-32) L Anion Gap 20 mmol/L (5-15) H Blood Urea Nitrogen 49 mg/dL (7-18) H Creatinine 4.0 MG/DL (0.55-1.30) H Estimat Glomerular Filtration Rate 11.9 mL/min (>60) Glucose Level 128 MG/DL (74-106) H Calcium Level 8.7 MG/DL (8.5-10.1) Ionized Calcium (Measured) 1.08 mmol/L (1.10-1.35) L Test 07/31/17 20:20 07/31/17 23:48 08/01/17 04:00 08/01/17 07:46 Prothrombin Time 9.4 SEC (9.30-11.50) Prothromb Time International Ratio 0.9 (0.9-1.1) Activated Partial Thromboplast Time 32 SEC (23-33) Random Vancomycin Level 20.8 ug/mL Sodium Level 139 MMOL/L (136-145) 140 MMOL/L (136-145) Potassium Level 2.3 MMOL/L (3.5-5.1) *L 2.4 MMOL/L (3.5-5.1) *L Chloride Level 103 MMOL/L (98-107) 103 MMOL/L (98-107) Carbon Dioxide Level 23 MMOL/L (21-32) 22 MMOL/L (21-32) Anion Gap 13 mmol/L (5-15) 15 mmol/L (5-15) Blood Urea Nitrogen 31 mg/dL (7-18) H 33 mg/dL (7-18) H Creatinine 3.0 MG/DL (0.55-1.30) H 3.3 MG/DL (0.55-1.30) H Estimat Glomerular Filtration Rate 16.6 mL/min (>60) 14.9 mL/min (>60) Glucose Level 135 MG/DL (74-106) H 143 MG/DL (74-106) H Calcium Level 7.9 MG/DL (8.5-10.1) L 8.0 MG/DL (8.5-10.1) L White Blood Count 13.1 K/UL (4.8-10.8) H Red Blood Count 3.57 M/UL (4.20-5.40) L Hemoglobin 7.6 G/DL (12.0-16.0) L Hematocrit 23.3 % (37.0-47.0) L Mean Corpuscular Volume 65 FL (80-99) L Mean Corpuscular Hemoglobin 21.2 PG (27.0-31.0) L Mean Corpuscular Hemoglobin Concent 32.5 G/DL (32.0-36.0) Red Cell Distribution Width 14.7 % (11.6-14.8) Platelet Count 247 K/UL (150-450) Mean Platelet Volume 7.0 FL (6.5-10.1) Neutrophils (%) (Auto) % (45.0-75.0) Lymphocytes (%) (Auto) % (20.0-45.0) Monocytes (%) (Auto) % (1.0-10.0) Eosinophils (%) (Auto) % (0.0-3.0) Basophils (%) (Auto) % (0.0-2.0) Differential Total Cells Counted 100 Neutrophils % (Manual) 81 % (45-75) H Lymphocytes % (Manual) 8 % (20-45) L Monocytes % (Manual) 5 % (1-10) Eosinophils % (Manual) 0 % (0-3) Basophils % (Manual) 0 % (0-2) Band Neutrophils 6 % (0-8) Platelet Estimate Adequate Platelet Morphology Normal Hypochromasia 1+ Anisocytosis 1+ Target Cells 1+ Total Bilirubin 0.6 MG/DL (0.2-1.0) Aspartate Amino Transf (AST/SGOT) 26 U/L (15-37) Alanine Aminotransferase (ALT/SGPT) 18 U/L (12-78) Alkaline Phosphatase 244 U/L (46-116) H Total Protein 5.1 G/DL (6.4-8.2) L Albumin 1.0 G/DL (3.4-5.0) L Globulin 4.1 g/dL Albumin/Globulin Ratio 0.2 (1.0-2.7) L Arterial Blood pH 7.500 (7.350-7.450) Arterial Blood Partial Pressure CO2 30.7 mmHg (35.0-45.0) L Arterial Blood Partial Pressure O2 144.7 mmHg (75.0-100.0) H Arterial Blood HCO3 23.6 mmol/L (22.0-26.0) Arterial Blood Oxygen Saturation 98.6 % (92.0-98.0) H Arterial Blood Base Excess 0.7 Ravi Test Positive Test 08/01/17 11:00 Sodium Level 140 MMOL/L (136-145) Potassium Level 2.5 MMOL/L (3.5-5.1) *L Chloride Level 104 MMOL/L (98-107) Carbon Dioxide Level 22 MMOL/L (21-32) Anion Gap 14 mmol/L (5-15) Blood Urea Nitrogen 35 mg/dL (7-18) H Creatinine 3.6 MG/DL (0.55-1.30) H Estimat Glomerular Filtration Rate 13.5 mL/min (>60) Glucose Level 161 MG/DL (74-106) H Calcium Level 7.8 MG/DL (8.5-10.1) L Total Bilirubin 0.6 MG/DL (0.2-1.0) Aspartate Amino Transf (AST/SGOT) 21 U/L (15-37) Alanine Aminotransferase (ALT/SGPT) 17 U/L (12-78) Alkaline Phosphatase 270 U/L (46-116) H Total Protein 5.2 G/DL (6.4-8.2) L Albumin 1.0 G/DL (3.4-5.0) L Globulin 4.2 g/dL Albumin/Globulin Ratio 0.2 (1.0-2.7) L Current Medications Medications (Trade) Dose Ordered Sig/Tommy Route PRN Reason Start Time Stop Time Status Last Admin Dose Admin Acetaminophen (Tylenol) 650 mg EVERY 6 HOURS PRN RECTAL Mild Pain (Pain Scale 1-3) 07/30/17 17:54 08/29/17 17:53 07/31/17 10:22 Chlorhexidine Gluconate (Idalia-Hex 2%) 1 applic DAILY@2000 TOPIC 07/30/17 20:00 08/29/17 19:59 07/31/17 20:08 Dextrose (Dextrose 50%) 25 ml PRN PRN IV HYPOGLYCEMIA 07/30/17 10:30 08/29/17 10:29 Dextrose (Dextrose 50%) 50 ml PRN PRN IV HYPOGLYCEMIA 07/30/17 11:00 08/29/17 10:59 Dextrose/Sodium Chloride 1,000 ml @ 75 mls/hr [id number] IV 08/01/17 09:00 08/31/17 08:59 08/01/17 09:15 Fentanyl Citrate 1000 mcg/Sodium Chloride 100 ml @ 0 mls/hr Q24H IV 07/31/17 18:30 08/07/17 18:29 07/31/17 22:11 Heparin Sodium (Porcine) (Heparin 5000 units/ml) 5,000 units EVERY 8 HOURS SUBQ 07/29/17 22:00 08/28/17 21:59 08/01/17 05:44 Insulin Human Regular (NovoLIN R) 5 units PRN PRN IV BS 200-299 07/30/17 11:00 08/29/17 10:59 07/31/17 11:58 Insulin Human Regular (NovoLIN R) 10 units PRN PRN IV BS=>300 07/30/17 11:00 08/29/17 10:59 Insulin Human Regular 100 units/ Sodium Chloride 101 ml @ 0 mls/hr Q24H IV 07/30/17 14:00 08/29/17 13:59 07/31/17 06:11 Miscellaneous Medication (Insulin Rate Change) 1 ea PRN PRN MISC Hyperglycemia 07/30/17 11:00 08/29/17 10:59 08/01/17 08:09 Norepinephrine Bitartrate 8 mg/ Dextrose 250 ml @ 0 mls/hr Q24H IV 07/30/17 08:00 08/29/17 07:59 07/31/17 10:56 Pantoprazole (Protonix) 40 mg DAILY IVP 07/30/17 09:00 08/29/17 08:59 08/01/17 09:15 Piperacillin Sod/ Tazobactam Sod 3.375 gm/Sodium Chloride 110 ml @ 27.5 mls/hr EVERY 8 HOURS IVPB 07/29/17 22:00 08/03/17 21:59 08/01/17 05:40 Potassium Chloride 100 ml @ 50 mls/hr Q2H IVPB 08/01/17 13:00 08/01/17 16:59 Silver Sulfadiazine (Silvadene Cream 25gm) 1 applic DAILY TOPIC 08/01/17 10:30 08/31/17 10:29 08/01/17 12:04 Vancomycin HCl (Vanco rx to dose) 1 ea DAILY PRN MISC Per rx protocol 07/29/17 16:00 08/28/17 15:59 Johanny Colbert M.D. August 01, 2017 13:32
[2017-08-01] MEDS: Acetaminophen 650 MG SUPP RECTAL PRN (14:43)
--- NOTE | 2017-08-01 16:54 | Cardiac Electrophysiology PN ---
Assessment/Plan Assessment/Plan 1. Septic shock due to diabetic ketoacidosis. On d5w NS at 75 cc/hr On broad-spectrum IV antibiotic as well as insulin drip.Back on Levophed Echocardiogram showed EF 60% .Rule out for NV 2. Diabetic ketoacidosis, on IV fluids and insulin. 3. Severe hyponatremia, sodium 118, likely due to diabetic ketoacidosis.Improved. 4. White count of 36,000, abdominal cellulitis, likely because of the patient's DKA. IV antibiotic per Dr. Colbert. Vancomycin and Zosyn 5. Morbid obesity. 6. Respiratory failure, currently on the ventilator. 7. ARf now on HD DW RN Subjective Subjective In ICU on vent and on 2 mcg of Levophed. Had first HD last night after LFV Manjinder catheter. No arrhythmias except occ PVCs.Getting US of left Labia Objective Last 24 Hour Vital Signs Date Time Temp Pulse Resp B/P (MAP) Pulse Ox O2 Delivery O2 Flow Rate FiO2 08/01/17 16:00 25 08/01/17 15:47 117/45 08/01/17 15:30 98 31 136/46 96 Mechanical Ventilator 30 08/01/17 15:22 100 31 25 08/01/17 15:20 99.9 08/01/17 15:00 97 27 123/47 96 Mechanical Ventilator 30 08/01/17 14:44 28 08/01/17 14:43 100.9 08/01/17 14:30 96 28 124/53 96 Mechanical Ventilator 30 08/01/17 14:00 97 28 109/42 97 Mechanical Ventilator 30 08/01/17 14:00 28 08/01/17 14:00 109/42 08/01/17 13:00 28 08/01/17 13:00 124/47 08/01/17 13:00 89 27 108/41 97 Mechanical Ventilator 30 08/01/17 12:40 94 29 35 08/01/17 12:30 89 27 108/41 97 Mechanical Ventilator 30 08/01/17 12:00 88 08/01/17 12:00 26 08/01/17 12:00 93/44 08/01/17 12:00 100.9 90 26 93/44 97 Mechanical Ventilator 30 100.9 08/01/17 11:30 30 08/01/17 11:30 90 26 125/42 97 Mechanical Ventilator 30 08/01/17 11:16 100 28 35 5/10/12 11:00 26 08/01/17 11:00 130/52 5 11:00 97 26 130/52 93 Mechanical Ventilator 30 08/01/17 10:30 95 27 129/44 93 Mechanical Ventilator 30 08/01/17 10:00 24 08/01/17 10:00 89/36 5 10:00 96 24 89/36 95 Mechanical Ventilator 30 08/01/17 09:30 99 25 102/44 95 Mechanical Ventilator 30 08/01/17 09:27 98 27 35 08/01/17 09:00 100.3 98 26 111/45 96 Mechanical Ventilator 30 100.3 08/01/17 09:00 26 08/01/17 09:00 111/45 08/01/17 08:30 94 26 113/47 94 Mechanical Ventilator 30 08/01/17 08:00 35 08/01/17 08:00 24 08/01/17 08:00 121/40 08/01/17 08:00 101.1 98 24 121/40 92 Mechanical Ventilator 30 101.1 08/01/17 08:00 101 08/01/17 07:30 92 24 95/34 92 Mechanical Ventilator 35 08/01/17 07:29 92 26 35 08/01/17 07:00 24 08/01/17 07:00 87 24 97/37 95 Mechanical Ventilator 35 08/01/17 06:30 86 24 107/42 96 Mechanical Ventilator 35 08/01/17 06:00 83 24 94/35 93 Mechanical Ventilator 35 08/01/17 06:00 24 08/01/17 05:30 82 24 80/31 94 Mechanical Ventilator 35 08/01/17 05:05 87 24 35 08/01/17 05:00 24 08/01/17 05:00 85 24 86/32 93 Mechanical Ventilator 35 08/01/17 04:30 92 25 102/34 94 Mechanical Ventilator 35 08/01/17 04:00 35 08/01/17 04:00 99.2 92 20 96/40 94 Mechanical Ventilator 35 99.2 08/01/17 04:00 92 08/01/17 04:00 24 08/01/17 03:30 90 26 35 08/01/17 03:30 100 27 109/46 93 Mechanical Ventilator 35 5/7/18 03:00 30 5/7/18 03:00 105 28 140/54 93 Mechanical Ventilator 35 5/7/18 02:30 101 25 137/56 93 Mechanical Ventilator 35 5/7/18 02:15 104 28 134/54 93 Mechanical Ventilator 35 5/7/18 02:00 103 26 152/65 95 Mechanical Ventilator 35 5/7/18 02:00 19 5/7/18 01:45 99 24 155/63 95 Mechanical Ventilator 35 5/7/18 01:30 98 32 35 5/7/18 01:30 96 26 123/45 95 Mechanical Ventilator 35 5/7/18 01:00 93 27 119/45 96 Mechanical Ventilator 35 5/7/18 01:00 27 5/7/18 00:30 86 13 115/52 96 Mechanical Ventilator 35 5/7/18 00:00 35 5/7/18 00:00 86 5/7/18 00:00 17 5/7/18 00:00 99.3 86 18 104/41 96 Mechanical Ventilator 35 99.3 5/6/18 23:30 88 18 131/56 95 Mechanical Ventilator 35 5/6/18 23:29 86 24 35 5/6/18 23:15 86 18 111/43 95 Mechanical Ventilator 35 5/6/18 23:00 16 5/6/18 23:00 86 18 115/43 95 Mechanical Ventilator 35 5/6/18 22:45 86 18 123/44 95 Mechanical Ventilator 35 5/6/18 22:30 87 27 123/44 95 Mechanical Ventilator 35 5/6/18 22:30 99.1 5/6/18 22:11 37 5/6/18 22:00 102 31 174/62 94 Mechanical Ventilator 35 5/6/18 21:53 Mechanical Ventilator 35 5/6/18 21:51 99.1 96 36 175/69 Mechanical Ventilator 35 99.1 5/6/18 21:45 97 31 167/72 94 Mechanical Ventilator 35 5/6/18 21:18 94 27 35 5/6/18 21:15 94 30 175/69 94 Mechanical Ventilator 35 5/6/18 21:00 93 34 143/58 93 Mechanical Ventilator 35 5/6/18 20:45 95 34 174/66 95 Mechanical Ventilator 35 5/6/18 20:30 96 33 169/67 94 Mechanical Ventilator 35 5/6/18 20:15 93 34 177/59 95 Mechanical Ventilator 35 07/31/17 20:00 93 33 182/65 95 Mechanical Ventilator 35 07/31/17 20:00 35 07/31/17 20:00 93 07/31/17 19:45 89 33 161/64 95 Mechanical Ventilator 35 07/31/17 19:30 89 34 184/63 94 Mechanical Ventilator 35 07/31/17 19:30 92 36 35 07/31/17 19:15 91 34 182/69 94 Mechanical Ventilator 35 07/31/17 19:00 90 34 137/69 95 Mechanical Ventilator 35 07/31/17 18:45 91 34 155/60 94 Mechanical Ventilator 35 07/31/17 18:30 93 35 177/68 96 Mechanical Ventilator 32 07/31/17 18:00 99.3 93 36 177/68 35 99.3 07/31/17 18:00 35 07/31/17 18:00 99.2 91 33 167/61 96 Mechanical Ventilator 32 99.2 07/31/17 18:00 33 167/61 07/31/17 18:00 167/61 07/31/17 17:30 88 33 155/59 97 Mechanical Ventilator 32 07/31/17 17:00 94 33 35 07/31/17 17:00 32 99/55 07/31/17 17:00 99/55 07/31/17 17:00 83 32 99/55 98 Mechanical Ventilator 32 Intake and Output 07/31/17 08/01/17 19:00 07:00 Intake Total 2433.167 ml 2736.265 ml Output Total 80 ml 220 ml Balance 2353.167 ml 2516.265 ml Intake Oral 0 ml 0 ml IV Total 2433.167 ml 2736.265 ml Output Urine Total 80 ml 220 ml Hemodialysis UF 0 ml # Bowel Movements 1 Laboratory Tests Test 07/31/17 18:14 07/31/17 20:20 07/31/17 23:48 08/01/17 04:00 Ionized Calcium (Measured) 1.08 mmol/L (1.10-1.35) L Prothrombin Time 9.4 SEC (9.30-11.50) Prothromb Time International Ratio 0.9 (0.9-1.1) Activated Partial Thromboplast Time 32 SEC (23-33) Random Vancomycin Level 20.8 ug/mL Sodium Level 139 MMOL/L (136-145) 140 MMOL/L (136-145) Potassium Level 2.3 MMOL/L (3.5-5.1) *L 2.4 MMOL/L (3.5-5.1) *L Chloride Level 103 MMOL/L (98-107) 103 MMOL/L (98-107) Carbon Dioxide Level 23 MMOL/L (21-32) 22 MMOL/L (21-32) Anion Gap 13 mmol/L (5-15) 15 mmol/L (5-15) Blood Urea Nitrogen 31 mg/dL (7-18) H 33 mg/dL (7-18) H Creatinine 3.0 MG/DL (0.55-1.30) H 3.3 MG/DL (0.55-1.30) H Estimat Glomerular Filtration Rate 16.6 mL/min (>60) 14.9 mL/min (>60) Glucose Level 135 MG/DL (74-106) H 143 MG/DL (74-106) H Calcium Level 7.9 MG/DL (8.5-10.1) L 8.0 MG/DL (8.5-10.1) L White Blood Count 13.1 K/UL (4.8-10.8) H Red Blood Count 3.57 M/UL (4.20-5.40) L Hemoglobin 7.6 G/DL (12.0-16.0) L Hematocrit 23.3 % (37.0-47.0) L Mean Corpuscular Volume 65 FL (80-99) L Mean Corpuscular Hemoglobin 21.2 PG (27.0-31.0) L Mean Corpuscular Hemoglobin Concent 32.5 G/DL (32.0-36.0) Red Cell Distribution Width 14.7 % (11.6-14.8) Platelet Count 247 K/UL (150-450) Mean Platelet Volume 7.0 FL (6.5-10.1) Neutrophils (%) (Auto) % (45.0-75.0) Lymphocytes (%) (Auto) % (20.0-45.0) Monocytes (%) (Auto) % (1.0-10.0) Eosinophils (%) (Auto) % (0.0-3.0) Basophils (%) (Auto) % (0.0-2.0) Differential Total Cells Counted 100 Neutrophils % (Manual) 81 % (45-75) H Lymphocytes % (Manual) 8 % (20-45) L Monocytes % (Manual) 5 % (1-10) Eosinophils % (Manual) 0 % (0-3) Basophils % (Manual) 0 % (0-2) Band Neutrophils 6 % (0-8) Platelet Estimate Adequate Platelet Morphology Normal Hypochromasia 1+ Anisocytosis 1+ Target Cells 1+ Total Bilirubin 0.6 MG/DL (0.2-1.0) Aspartate Amino Transf (AST/SGOT) 26 U/L (15-37) Alanine Aminotransferase (ALT/SGPT) 18 U/L (12-78) Alkaline Phosphatase 244 U/L (46-116) H Total Protein 5.1 G/DL (6.4-8.2) L Albumin 1.0 G/DL (3.4-5.0) L Globulin 4.1 g/dL Albumin/Globulin Ratio 0.2 (1.0-2.7) L Test 08/01/17 07:46 08/01/17 11:00 08/01/17 14:37 Arterial Blood pH 7.500 (7.350-7.450) 7.460 (7.350-7.450) Arterial Blood Partial Pressure CO2 30.7 mmHg (35.0-45.0) L 35.2 mmHg (35.0-45.0) Arterial Blood Partial Pressure O2 144.7 mmHg (75.0-100.0) H 129.7 mmHg (75.0-100.0) H Arterial Blood HCO3 23.6 mmol/L (22.0-26.0) 25.0 mmol/L (22.0-26.0) Arterial Blood Oxygen Saturation 98.6 % (92.0-98.0) H 98.3 % (92.0-98.0) H Arterial Blood Base Excess 0.7 1.3 Ravi Test Positive Positive Sodium Level 140 MMOL/L (136-145) Potassium Level 2.5 MMOL/L (3.5-5.1) *L Chloride Level 104 MMOL/L (98-107) Carbon Dioxide Level 22 MMOL/L (21-32) Anion Gap 14 mmol/L (5-15) Blood Urea Nitrogen 35 mg/dL (7-18) H Creatinine 3.6 MG/DL (0.55-1.30) H Estimat Glomerular Filtration Rate 13.5 mL/min (>60) Glucose Level 161 MG/DL (74-106) H Calcium Level 7.8 MG/DL (8.5-10.1) L Total Bilirubin 0.6 MG/DL (0.2-1.0) Aspartate Amino Transf (AST/SGOT) 21 U/L (15-37) Alanine Aminotransferase (ALT/SGPT) 17 U/L (12-78) Alkaline Phosphatase 270 U/L (46-116) H Total Protein 5.2 G/DL (6.4-8.2) L Albumin 1.0 G/DL (3.4-5.0) L Globulin 4.2 g/dL Albumin/Globulin Ratio 0.2 (1.0-2.7) L Microbiology Date/Time Source Procedure Growth Status 07/29/17 18:30 Nasal Nares MRSA Culture - Final NO METHICILLIN RESISTANT STAPH AUREUS... Complete 07/29/17 21:00 Leg Left Gram Stain - Final Resulted 07/29/17 21:00 Wound Culture - Preliminary Klebsiella Oxytoca Staphylococcus Aureus Resulted 07/29/17 17:05 Rectum VRE Culture - Final NO VANCOMYCIN RESISTANT ENTEROCOCCUS ... Complete Objective HEAD AND NECK: Shows no JVD, orally intubated. LUNGS: Coarse rhonchi. CARDIOVASCULAR: Regular S1 and S2 with no gallop. ABDOMEN: Cellulitis of the lower abdomen and erythema. EXTREMITIES: There is 1+ pitting edema.Adama Tracey MD August 01, 2017 16:54
[2017-08-01] MEDS: Dyna-Hex 2% Top Sol 2oz TOPIC SCH (19:49)
--- NOTE | 2017-08-01 21:46 | Pulmonolgy Critical Care Note ---
Critical Care - Asmt/Plan Assessment/Plan: Patient is a 46 year old woman admitted with abdominal wall cellulitis, severe Diabetic Ketoacidosis, currently intubated and sedated in the ICU On antibiotics per ID low dose levophed, off bicarb gtt, s/p HD x 1 AC 18 vt 500 p5 FIO2 25 Problems: (1) Cellulitis of abdominal wall Assessment & Plan: rule out necrotizing fasciitis , antibiotics per ID, surgery following (2) UTI (urinary tract infection) on zosyn /Vanc (3) Pharyngitis, acute Antibiotics/ID (4) Septic shock Assessment & Plan: due to the above will send blood culture and start vancomycin with zosyn empiric coverage, remains of Levophed (5) Acute respiratory failure Assessment & Plan: due to the above, intubated in ED continue on mechanical ventilation, sedation for RASS -1 (6) SCARLET (acute kidney injury) Assessment & Plan: due to the above, continue fluids for hydration and blood pressure support, nephrology is following (7) DKA (diabetic ketoacidoses)/Hyponatremia Assessment & Plan: due to poorly controlled diabetes and sepsis, recommend insulin drip in the ICU with close monitor of her blood glucose to keep between 80-120 Subjective Allergies: Coded Allergies: No Known Allergies (Unverified , 07/29/17) Objective Vital Signs Last 24 Hour Vital Signs Date Time Temp Pulse Resp B/P (MAP) Pulse Ox O2 Delivery O2 Flow Rate FiO2 07/29/17 16:30 82 25 35 07/29/17 15:04 97.0 79 34 103/98 99 Room Air 97.0 07/29/17 13:02 97.0 100 16 73/49 98 Room Air 97.0 Height (Feet): 5 Height (Inches): 5.00 Weight (Pounds): 250 Patient sedated on the ventilator Obese HEENT: NCAT, PERRL, moist MM Chest: CTAB, equal BS, 8.0 ETT 23cm Heart: HS1, Hs2 RRR Abdomen: Obese, erethematous area lower abdominal wall Extremeties: No rashes MONOTYPE MECHANIC: No focal signs noted, no seizures Laboratory Tests Test 07/29/17 13:55 07/29/17 15:00 07/29/17 15:34 White Blood Count 36.2 K/UL (4.8-10.8) *H Red Blood Count 5.09 M/UL (4.20-5.40) Hemoglobin 10.5 G/DL (12.0-16.0) L Hematocrit 36.4 % (37.0-47.0) L Mean Corpuscular Volume 71 FL (80-99) L Mean Corpuscular Hemoglobin 20.6 PG (27.0-31.0) L Mean Corpuscular Hemoglobin Concent 28.9 G/DL (32.0-36.0) L Red Cell Distribution Width 16.2 % (11.6-14.8) H Platelet Count 525 K/UL (150-450) H Mean Platelet Volume 8.3 FL (6.5-10.1) Neutrophils (%) (Auto) % (45.0-75.0) Lymphocytes (%) (Auto) % (20.0-45.0) Monocytes (%) (Auto) % (1.0-10.0) Eosinophils (%) (Auto) % (0.0-3.0) Basophils (%) (Auto) % (0.0-2.0) Differential Total Cells Counted 100 Neutrophils % (Manual) 69 % (45-75) Lymphocytes % (Manual) 10 % (20-45) L Monocytes % (Manual) 5 % (1-10) Eosinophils % (Manual) 0 % (0-3) Basophils % (Manual) 0 % (0-2) Band Neutrophils 16 % (0-8) H Platelet Estimate Increased H Platelet Morphology Giant Platelets Occasional Polychromasia 1+ Hypochromasia 1+ Anisocytosis 1+ Microcytosis 1+ D-Dimer 1.85 mg/L FEU (0.00-0.49) H Urine Color Pale yellow Urine Appearance Clear Urine pH 5 (4.5-8.0) Urine Specific [place] 1.020 (1.005-1.035) Urine Protein 3+ (NEGATIVE) H Urine Glucose (UA) 4+ (NEGATIVE) H Urine Ketones 3+ (NEGATIVE) H Urine Occult Blood 5+ (NEGATIVE) H Urine Nitrite Negative (NEGATIVE) Urine Bilirubin Negative (NEGATIVE) Urine Urobilinogen Normal MG/DL (0.0-1.0) Urine Leukocyte Esterase 3+ (NEGATIVE) H Urine RBC 5-10 /HPF (0 - 2) H Urine WBC 5-10 /HPF (0 - 2) H Urine Squamous Epithelial Cells Moderate /LPF (NONE/OCC) H Urine Bacteria Few /HPF (NONE) Urine HCG, Qualitative Negative (NEGATIVE) Sodium Level 118 MMOL/L (136-145) *L Potassium Level 5.0 MMOL/L (3.5-5.1) Chloride Level 85 MMOL/L (98-107) L Carbon Dioxide Level < 5 MMOL/L (21-32) *L Blood Urea Nitrogen 28 mg/dL (7-18) H Creatinine 1.8 MG/DL (0.55-1.30) H Estimat Glomerular Filtration Rate 30.1 mL/min (>60) Glucose Level 868 MG/DL (74-106) *H Calcium Level 10.7 MG/DL (8.5-10.1) H Total Bilirubin 0.7 MG/DL (0.2-1.0) Aspartate Amino Transf (AST/SGOT) 44 U/L (15-37) H Alanine Aminotransferase (ALT/SGPT) 29 U/L (12-78) Alkaline Phosphatase 337 U/L (46-116) H Total Creatine Kinase 159 U/L (26-308) Creatine Kinase MB 3.3 NG/ML (0.0-3.6) Creatine Kinase MB Relative Index 2.0 Troponin I 0.000 ng/mL (0.000-0.056) Pro-B-Type Natriuretic Peptide 5024 pg/mL (0-125) H Total Protein 8.3 G/DL (6.4-8.2) H Albumin 2.3 G/DL (3.4-5.0) L Globulin 6.0 g/dL Albumin/Globulin Ratio 0.4 (1.0-2.7) L Lipase 47 U/L (73-393) L Urine Opiates Screen Negative (NEGATIVE) Urine Barbiturates Screen Negative (NEGATIVE) Phencyclidine (PCP) Screen Negative (NEGATIVE) Urine Amphetamines Screen Negative (NEGATIVE) Urine Benzodiazepines Screen Negative (NEGATIVE) Urine Cocaine Screen Negative (NEGATIVE) Urine Marijuana (THC) Screen Negative (NEGATIVE) Lactic Acid Level 1.10 mmol/L (0.66-2.22) Arterial Blood pH 6.830 (7.350-7.450) Arterial Blood Partial Pressure CO2 21.0 mmHg (35.0-45.0) *L Arterial Blood Partial Pressure O2 108.8 mmHg (75.0-100.0) H Arterial Blood HCO3 3.4 mmol/L (22.0-26.0) L Arterial Blood Oxygen Saturation 95.7 % (92.0-98.0) Arterial Blood Base Excess -29.1 Ravi Test Positive Current Medications Medications (Trade) Dose Ordered Sig/Tommy Route PRN Reason Start Time Stop Time Status Last Admin Dose Admin Insulin Human Regular 100 units/ Sodium Chloride 100 ml @ 5 mls/hr Q24H IV 07/29/17 14:15 08/28/17 14:14 Norepinephrine Bitartrate 4 mg/ Dextrose 250 ml @ 0 mls/hr Q24H IV 07/29/17 16:45 08/28/17 16:44 Piperacillin Sod/ Tazobactam Sod 3.375 gm/Sodium Chloride 110 ml @ 27.5 mls/hr EVERY 8 HOURS IVPB 07/29/17 22:00 08/03/17 21:59 Vancomycin HCl (Vanco rx to dose) 1 ea DAILY PRN MISC Per rx protocol 07/29/17 16:00 08/28/17 15:59 Vancomycin HCl 500 mg/Dextrose 110 ml @ 110 mls/hr ONCE ONCE IVPB 07/29/17 18:00 07/29/17 18:59 Critical Care - Objective Last 24 Hour Vital Signs Date Time Temp Pulse Resp B/P (MAP) Pulse Ox O2 Delivery O2 Flow Rate FiO2 08/01/17 21:23 110 34 25 08/01/17 20:30 115 35 165/53 96 Mechanical Ventilator 30 08/01/17 20:00 25 08/01/17 20:00 99.2 114 35 157/57 96 Mechanical Ventilator 30 99.2 08/01/17 19:30 109 31 128/69 96 Mechanical Ventilator 30 08/01/17 19:12 108 34 25 08/01/17 19:00 104 31 127/60 96 Mechanical Ventilator 30 08/01/17 18:30 98 30 88/55 96 Mechanical Ventilator 30 08/01/17 18:00 99.8 99 34 125/58 96 Mechanical Ventilator 30 99.8 08/01/17 17:30 98 30 121/50 96 Mechanical Ventilator 30 08/01/17 17:16 97 30 25 08/01/17 17:00 30 08/01/17 17:00 102/43 5/7/18 17:00 93 30 102/43 96 Mechanical Ventilator 30 08/01/17 16:30 88 30 108/44 96 Mechanical Ventilator 30 08/01/17 16:00 99.9 95 27 104/46 96 Mechanical Ventilator 30 99.9 08/01/17 16:00 95 08/01/17 16:00 25 08/01/17 16:00 27 08/01/17 16:00 104/46 08/01/17 15:47 117/45 08/01/17 15:30 98 31 136/46 96 Mechanical Ventilator 30 08/01/17 15:22 100 31 25 08/01/17 15:20 99.9 08/01/17 15:00 27 08/01/17 15:00 123/47 08/01/17 15:00 97 27 123/47 96 Mechanical Ventilator 30 08/01/17 14:44 28 08/01/17 14:43 100.9 08/01/17 14:30 96 28 124/53 96 Mechanical Ventilator 30 08/01/17 14:00 97 28 109/42 97 Mechanical Ventilator 30 08/01/17 14:00 28 08/01/17 14:00 109/42 08/01/17 13:00 28 08/01/17 13:00 124/47 08/01/17 13:00 89 27 108/41 97 Mechanical Ventilator 30 08/01/17 12:40 94 29 35 08/01/17 12:30 89 27 108/41 97 Mechanical Ventilator 30 08/01/17 12:00 88 08/01/17 12:00 26 08/01/17 12:00 93/44 08/01/17 12:00 100.9 90 26 93/44 97 Mechanical Ventilator 30 100.9 08/01/17 11:30 30 08/01/17 11:30 90 26 125/42 97 Mechanical Ventilator 30 08/01/17 11:16 100 28 35 08/01/17 11:00 26 08/01/17 11:00 130/52 08/01/17 11:00 97 26 130/52 93 Mechanical Ventilator 30 18 10:30 95 27 129/44 93 Mechanical Ventilator 30 08/01/17 10:00 24 08/01/17 10:00 89/36 5 10:00 96 24 89/36 95 Mechanical Ventilator 30 08/01/17 09:30 99 25 102/44 95 Mechanical Ventilator 30 08/01/17 09:27 98 27 35 08/01/17 09:00 100.3 98 26 111/45 96 Mechanical Ventilator 30 100.3 08/01/17 09:00 26 08/01/17 09:00 111/45 08/01/17 08:30 94 26 113/47 94 Mechanical Ventilator 30 08/01/17 08:00 35 08/01/17 08:00 24 08/01/17 08:00 121/40 08/01/17 08:00 101.1 98 24 121/40 92 Mechanical Ventilator 30 101.1 08/01/17 08:00 101 08/01/17 07:30 92 24 95/34 92 Mechanical Ventilator 35 08/01/17 07:29 92 26 35 08/01/17 07:00 24 08/01/17 07:00 87 24 97/37 95 Mechanical Ventilator 35 08/01/17 06:30 86 24 107/42 96 Mechanical Ventilator 35 08/01/17 06:00 83 24 94/35 93 Mechanical Ventilator 35 08/01/17 06:00 24 08/01/17 05:30 82 24 80/31 94 Mechanical Ventilator 35 08/01/17 05:05 87 24 35 08/01/17 05:00 24 08/01/17 05:00 85 24 86/32 93 Mechanical Ventilator 35 08/01/17 04:30 92 25 102/34 94 Mechanical Ventilator 35 08/01/17 04:00 35 08/01/17 04:00 99.2 92 20 96/40 94 Mechanical Ventilator 35 99.2 08/01/17 04:00 92 08/01/17 04:00 24 08/01/17 03:30 90 26 35 08/01/17 03:30 100 27 109/46 93 Mechanical Ventilator 35 08/01/17 03:00 30 08/01/17 03:00 105 28 140/54 93 Mechanical Ventilator 35 08/01/17 02:30 101 25 137/56 93 Mechanical Ventilator 35 08/01/17 02:15 104 28 134/54 93 Mechanical Ventilator 35 08/01/17 02:00 103 26 152/65 95 Mechanical Ventilator 35 08/01/17 02:00 19 08/01/17 01:45 99 24 155/63 95 Mechanical Ventilator 35 08/01/17 01:30 98 32 35 08/01/17 01:30 96 26 123/45 95 Mechanical Ventilator 35 08/01/17 01:00 93 27 119/45 96 Mechanical Ventilator 35 08/01/17 01:00 27 08/01/17 00:30 86 13 115/52 96 Mechanical Ventilator 35 08/01/17 00:00 35 08/01/17 00:00 86 08/01/17 00:00 17 08/01/17 00:00 99.3 86 18 104/41 96 Mechanical Ventilator 35 99.3 07/31/17 23:30 88 18 131/56 95 Mechanical Ventilator 35 07/31/17 23:29 86 24 35 07/31/17 23:15 86 18 111/43 95 Mechanical Ventilator 35 07/31/17 23:00 16 07/31/17 23:00 86 18 115/43 95 Mechanical Ventilator 35 07/31/17 22:45 86 18 123/44 95 Mechanical Ventilator 35 07/31/17 22:30 87 27 123/44 95 Mechanical Ventilator 35 07/31/17 22:30 99.1 07/31/17 22:11 37 07/31/17 22:00 102 31 174/62 94 Mechanical Ventilator 35 07/31/17 21:53 Mechanical Ventilator 35 07/31/17 21:51 99.1 96 36 175/69 Mechanical Ventilator 35 99.1 Accucheck: 140 Critical Care - Subjective ROS Limited/Unobtainable: Yes Condition: stable IV Access: central EKG Rhythm: Sinus Rhythm FI02: 25 Vent Support Breath Rate: 18 Vent Support Mode: AC Vent Tidal Volume: 500 Sputum Amount: Small PEEP: 5.0 PIP: 37 I&O: Intake and Output 07/31/17 08/01/17 19:00 07:00 Intake Total 2433.167 ml 2736.265 ml Output Total 80 ml 220 ml Balance 2353.167 ml 2516.265 ml Intake Oral 0 ml 0 ml IV Total 2433.167 ml 2736.265 ml Output Urine Total 80 ml 220 ml Hemodialysis UF 0 ml # Bowel Movements 1 ET-Tube: 8.0 ET Position: 22 Marko Chaney M.D. August 01, 2017 21:46
[2017-08-02] VITALS (48 sets, daily range): BP systolic 76–165; BP diastolic 16–72
[2017-08-02 04:32] LABS: HEMATOCRIT 23.2 % (37.0-47.0); HEMOGLOBIN 7.8 G/DL (12.0-16.0); MEAN CORPUSCULAR VOLUME 66 FL (80-99); PLATELET COUNT 281 K/UL (150-450); RED BLOOD COUNT 3.54 M/UL (4.20-5.40); RED CELL DISTRIBUTION WIDTH 14.8 % (11.6-14.8); WHITE BLOOD COUNT 20.4 K/UL (4.8-10.8)
[2017-08-02 04:50] LABS: ANION GAP 12 mmol/L (5-15); BLOOD UREA NITROGEN 43 mg/dL (7-18); CALCIUM 8.2 MG/DL (8.5-10.1); CARBON DIOXIDE 24 MMOL/L (21-32); CHLORIDE 105 MMOL/L (98-107); CREATININE 4.3 MG/DL (0.55-1.30); PHOSPHORUS 2.3 MG/DL (2.5-4.9); POTASSIUM 3.5 MMOL/L (3.5-5.1); SODIUM 140 MMOL/L (136-145)
[2017-08-02] MEDS: Piperacillin/Tazobactam 3.375 GM in NS 110 ML IVPB SCH (05:52)
[2017-08-02] MEDS: Heparin 5000 units/ml inj SUBQ SCH ×3 (05:57→21:43)
--- NOTE | 2017-08-02 06:04 | General Progress Note ---
Assessment/Plan Problem List: (1) Cellulitis of abdominal wall ICD Codes: L03.311 - Cellulitis of abdominal wall SNOMED: 65980587 (2) Acute respiratory failure ICD Codes: J96.00 - Acute respiratory failure, unspecified whether with hypoxia or hypercapnia SNOMED: 84472476 (3) New onset type 1 diabetes mellitus, uncontrolled ICD Codes: E10.65 - Type 1 diabetes mellitus with hyperglycemia SNOMED: 636696480 (4) Necrotizing fasciitis ICD Codes: M72.6 - Necrotizing fasciitis SNOMED: 77834093 (5) DKA (diabetic ketoacidoses) ICD Codes: E13.10 - Other specified diabetes mellitus with ketoacidosis without coma SNOMED: 26217631, [id number] Assessment/Plan remained intubated in ICU AG closed but she requires high rate insulin gtt continue insulin gtt BG monitoring to every 2 hours monitor electrolytes and replete Subjective ROS Limited/Unobtainable: Yes Allergies: Coded Allergies: PENICILLINS (Verified Allergy, Unknown, 07/30/17) According to mother, the patient is allergic to Penicillins Subjective intubated in icu Objective Last 24 Hour Vital Signs Date Time Temp Pulse Resp B/P (MAP) Pulse Ox O2 Delivery O2 Flow Rate FiO2 08/02/17 05:28 118 31 25 08/02/17 04:00 99.6 87 31 122/44 96 Mechanical Ventilator 25 99.6 08/02/17 04:00 87 08/02/17 04:00 25 08/02/17 03:30 86 31 112/43 96 Mechanical Ventilator 25 08/02/17 03:08 88 30 25 08/02/17 03:00 86 32 108/45 96 Mechanical Ventilator 25 08/02/17 02:30 85 32 109/45 96 Mechanical Ventilator 25 08/02/17 02:00 85 34 103/41 97 Mechanical Ventilator 25 08/02/17 01:30 85 35 103/59 97 Mechanical Ventilator 25 08/02/17 01:28 101 34 25 08/02/17 01:00 85 35 99/44 96 Mechanical Ventilator 25 08/02/17 00:30 96 36 103/45 96 Mechanical Ventilator 25 08/02/17 00:00 99.3 87 36 95/37 96 Mechanical Ventilator 25 99.3 08/02/17 00:00 89 08/02/17 00:00 25 5/7/18 23:30 92 33 104/50 96 Mechanical Ventilator 25 5/7/18 23:16 96 32 25 5/7/18 23:00 94 33 99/49 96 Mechanical Ventilator 25 5//18 22:30 97 35 95/50 96 Mechanical Ventilator 25 5/7/18 22:00 114 35 137/63 95 Mechanical Ventilator 25 5/7/18 21:30 113 37 130/65 96 Mechanical Ventilator 25 5/7/18 21:23 110 34 25 5//18 21:00 113 34 135/69 95 Mechanical Ventilator 25 5//18 20:30 115 35 165/53 96 Mechanical Ventilator 25 5//18 20:00 25 08/01/18 20:00 99.2 114 35 157/57 96 Mechanical Ventilator 25 99.2 18 20:00 114 18 19:30 109 31 128/69 96 Mechanical Ventilator 25 08/01/18 19:12 108 34 25 08/01/18 19:00 104 31 127/60 96 Mechanical Ventilator 30 18 18:30 98 30 88/55 96 Mechanical Ventilator 30 08/01/18 18:00 99.8 99 34 125/58 96 Mechanical Ventilator 30 99.8 08/01/18 17:30 98 30 121/50 96 Mechanical Ventilator 30 18 17:16 97 30 25 18 17:00 30 08/01/18 17:00 102/43 518 17:00 93 30 102/43 96 Mechanical Ventilator 30 18 16:30 88 30 108/44 96 Mechanical Ventilator 30 18 16:00 99.9 95 27 104/46 96 Mechanical Ventilator 30 99.9 08/01/18 16:00 95 18 16:00 25 5/18 16:00 27 5//18 16:00 104/46 5/18 15:47 117/45 08/01/17 15:30 98 31 136/46 96 Mechanical Ventilator 30 08/01/18 15:22 100 31 25 //18 15:20 99.9 5/7/18 15:00 27 08/01/18 15:00 123/47 5/18 15:00 97 27 123/47 96 Mechanical Ventilator 30 5/7/18 14:44 28 5/7/18 14:43 100.9 08/01/17 14:30 96 28 124/53 96 Mechanical Ventilator 30 08/01/17 14:00 97 28 109/42 97 Mechanical Ventilator 30 08/01/17 14:00 28 08/01/17 14:00 109/42 08/01/17 13:00 28 08/01/17 13:00 124/47 08/01/17 13:00 89 27 108/41 97 Mechanical Ventilator 30 08/01/17 12:40 94 29 35 08/01/17 12:30 89 27 108/41 97 Mechanical Ventilator 30 08/01/17 12:00 88 08/01/17 12:00 26 08/01/17 12:00 93/44 08/01/17 12:00 100.9 90 26 93/44 97 Mechanical Ventilator 30 100.9 08/01/17 11:30 30 08/01/17 11:30 90 26 125/42 97 Mechanical Ventilator 30 08/01/17 11:16 100 28 35 08/01/17 11:00 26 08/01/17 11:00 130/52 08/01/17 11:00 97 26 130/52 93 Mechanical Ventilator 30 08/01/17 10:30 95 27 129/44 93 Mechanical Ventilator 30 08/01/17 10:00 24 08/01/17 10:00 89/36 08/01/17 10:00 96 24 89/36 95 Mechanical Ventilator 30 08/01/17 09:30 99 25 102/44 95 Mechanical Ventilator 30 08/01/17 09:27 98 27 35 08/01/17 09:00 100.3 98 26 111/45 96 Mechanical Ventilator 30 100.3 08/01/17 09:00 26 08/01/17 09:00 111/45 08/01/17 08:30 94 26 113/47 94 Mechanical Ventilator 30 08/01/17 08:00 35 08/01/17 08:00 24 08/01/17 08:00 121/40 08/01/17 08:00 101.1 98 24 121/40 92 Mechanical Ventilator 30 101.1 08/01/17 08:00 101 08/01/17 07:30 92 24 95/34 92 Mechanical Ventilator 35 08/01/17 07:29 92 26 35 5/7/18 07:00 24 08/01/17 07:00 87 24 97/37 95 Mechanical Ventilator 35 08/01/17 06:30 86 24 107/42 96 Mechanical Ventilator 35 Intake and Output 08/01/17 08/02/17 19:00 07:00 Intake Total 2875.168 ml 1013.93 ml Output Total 157 ml 80 ml Balance 2718.168 ml 933.93 ml Intake Oral 0 ml 0 ml IV Total 2875.168 ml 1013.93 ml Output Urine Total 157 ml 80 ml # Bowel Movements 2 4 Laboratory Tests 08/01/17 07:46: Arterial Blood pH 7.500H, Arterial Blood Partial Pressure CO2 30.7L, Arterial Blood Partial Pressure O2 144.7H, Arterial Blood HCO3 23.6, Arterial Blood Oxygen Saturation 98.6H, Arterial Blood Base Excess 0.7, Ravi Test Positive 08/01/17 11:00: Sodium Level 140, Potassium Level 2.5*L, Chloride Level 104, Carbon Dioxide Level 22, Anion Gap 14, Blood Urea Nitrogen 35H, Creatinine 3.6H, Estimat Glomerular Filtration Rate 13.5, Glucose Level 161H, Calcium Level 7.8L, Total Bilirubin 0.6, Aspartate Amino Transf (AST/SGOT) 21, Alanine Aminotransferase ( ALT/SGPT) 17, Alkaline Phosphatase 270H, Total Protein 5.2L, Albumin 1.0L, Globulin 4.2, Albumin/Globulin Ratio 0.2L 08/01/17 14:37: Arterial Blood pH 7.460H, Arterial Blood Partial Pressure CO2 35.2, Arterial Blood Partial Pressure O2 129.7H, Arterial Blood HCO3 25.0, Arterial Blood Oxygen Saturation 98.3H, Arterial Blood Base Excess 1.3, Ravi Test Positive 08/01/17 18:45: Potassium Level 2.9L 08/01/17 20:00: Potassium Level 3.0L 08/02/17 04:15: Potassium Level 3.5, White Blood Count 20.4#H, Red Blood Count 3.54L, Hemoglobin 7.8L, Hematocrit 23.2L, Mean Corpuscular Volume 66L, Mean Corpuscular Hemoglobin 22.0L, Mean Corpuscular Hemoglobin Concent 33.5, Red Cell Distribution Width 14.8, Platelet Count 281, Mean Platelet Volume 6.7, Neutrophils (%) (Auto) , Lymphocytes (%) (Auto) , Monocytes (%) (Auto) , Eosinophils (%) (Auto) , Basophils (%) (Auto) , Neutrophils % (Manual) [Pending] , Lymphocytes % (Manual) [Pending], Platelet Estimate [Pending], Platelet Morphology [Pending], Sodium Level 140, Chloride Level 105, Carbon Dioxide Level 24, Anion Gap 12, Blood Urea Nitrogen 43H, Creatinine 4.3H, Estimat Glomerular Filtration Rate 11.0, Glucose Level 122H, Calcium Level 8.2L, Ionized Calcium (Measured) [Pending], Phosphorus Level 2.3L, Magnesium Level 1.7L Height (Feet): 5 Height (Inches): 5.00 Weight (Pounds): 298 General Appearance: severe distress Neck: normal alignment Cardiovascular: tachycardia Respiratory/Chest: decreased breath sounds Abdomen: normal bowel sounds Edema: 1+ Arm (L), 1+ Arm (R), 1+ Leg (L), 1+ Leg (R), 1+ Pedal (L), 1+ Pedal ( R), 1+ Generalized Objective Current Medications Medications (Trade) Dose Ordered Sig/Tommy Route PRN Reason Start Time Stop Time Status Last Admin Dose Admin Acetaminophen (Tylenol) 650 mg EVERY 6 HOURS PRN RECTAL Mild Pain (Pain Scale 1-3) 07/30/17 17:54 08/29/17 17:53 08/01/17 14:43 Chlorhexidine Gluconate (Idalia-Hex 2%) 1 applic DAILY@2000 TOPIC 07/30/17 20:00 08/29/17 19:59 08/01/17 19:49 Dextrose (Dextrose 50%) 25 ml PRN PRN IV HYPOGLYCEMIA 07/30/17 10:30 08/29/17 10:29 Dextrose (Dextrose 50%) 50 ml PRN PRN IV HYPOGLYCEMIA 07/30/17 11:00 08/29/17 10:59 Dextrose/Sodium Chloride 1,000 ml @ 75 mls/hr [id number] IV 08/01/17 09:00 08/31/17 08:59 08/01/17 22:47 Fentanyl Citrate 1000 mcg/Sodium Chloride 100 ml @ 0 mls/hr Q24H IV 07/31/17 18:30 08/07/17 18:29 08/01/17 14:44 Heparin Sodium (Porcine) (Heparin 5000 units/ml) 5,000 units EVERY 8 HOURS SUBQ 07/29/17 22:00 08/28/17 21:59 08/02/17 05:57 Insulin Human Regular (NovoLIN R) 5 units PRN PRN IV BS 200-299 07/30/17 11:00 08/29/17 10:59 07/31/17 11:58 Insulin Human Regular (NovoLIN R) 10 units PRN PRN IV BS=>300 07/30/17 11:00 08/29/17 10:59 Insulin Human Regular 100 units/ Sodium Chloride 101 ml @ 0 mls/hr Q24H IV 07/30/17 14:00 08/29/17 13:59 08/01/17 17:05 Miscellaneous Medication (Insulin Rate Change) 1 ea PRN PRN MISC Hyperglycemia 07/30/17 11:00 08/29/17 10:59 08/01/17 14:03 Norepinephrine Bitartrate 8 mg/ Dextrose 250 ml @ 0 mls/hr Q24H IV 07/30/17 08:00 08/29/17 07:59 08/01/17 15:47 Pantoprazole (Protonix) 40 mg DAILY IVP 07/30/17 09:00 08/29/17 08:59 08/01/17 09:15 Piperacillin Sod/ Tazobactam Sod 3.375 gm/Sodium Chloride 110 ml @ 27.5 mls/hr EVERY 8 HOURS IVPB 07/29/17 22:00 08/03/17 21:59 08/02/17 05:52 Silver Sulfadiazine (Silvadene Cream 25gm) 1 applic DAILY TOPIC 08/01/17 10:30 08/31/17 10:29 08/01/17 12:04 Vancomycin HCl (Vanco rx to dose) 1 ea DAILY PRN MISC Per rx protocol 07/29/17 16:00 08/28/17 15:59 Item Value Date Time Bedside Blood Glucose 131 mg/dl H 08/02/17 0400 Bedside Blood Glucose 116 mg/dl 08/02/17 0200 Bedside Blood Glucose 150 mg/dl H 08/01/17 2200 Bedside Blood Glucose 158 mg/dl H 08/01/17 1800 Bedside Blood Glucose 146 mg/dl H 08/01/17 1407 Bedside Blood Glucose 166 mg/dl H 08/01/17 1000 SAQIB TOM August 02, 2017 06:04
--- NOTE | 2017-08-02 08:14 | Nephrology Progress Note ---
Assessment/Plan Assessment/Plan 1. SCARLET- Hold HD today. If renal function worsens then plan for HD tomorrow. Monitor UOP - multifact ATN (sepsis induced inflammotory cytokine prox tub damage/ ishchemic ATN hypotension/vol dep) - Hold HD today. HD tomorrow if renal function does not improve 2. DKA/Met Acidosis- resolved post HD. On low dose IV pressor - due hypoperfusion 3. Septic Shock- etiology likely from abd cellulitis. Abx mgmt per ID - Gen Surg mgmt of abdomen paniculitis. Slowly improving 4. Hypotension- Maintain MAP >65 mmHg 5. Resp FL- intubated on ventilator per [facility] management 6. Hypok+/Ca/Phos- being aggressively replaced today again Subjective Date patient seen: August 02, 2017 Time patient seen: 08:11 Neurologic/Psychiatric: Reports: other - intubated sedated on the ventilator Allergies: Coded Allergies: PENICILLINS (Verified Allergy, Unknown, 07/30/17) According to mother, the patient is allergic to Penicillins All Systems: reviewed and negative except above Subjective Patient remains intubated on the vent. Much improved Objective Last 24 Hour Vital Signs Date Time Temp Pulse Resp B/P (MAP) Pulse Ox O2 Delivery O2 Flow Rate FiO2 08/02/17 07:43 30 08/02/17 07:27 103 32 25 08/02/17 06:30 107 31 114/45 98 Mechanical Ventilator 25 08/02/17 06:00 114 34 136/54 98 Mechanical Ventilator 25 08/02/17 05:30 115 35 165/63 100 Mechanical Ventilator 25 08/02/17 05:28 118 31 25 08/02/17 05:00 108 33 164/63 98 Mechanical Ventilator 25 08/02/17 04:30 98 31 141/72 97 Mechanical Ventilator 25 08/02/17 04:00 99.6 87 31 122/44 96 Mechanical Ventilator 25 99.6 08/02/17 04:00 87 08/02/17 04:00 25 08/02/17 03:30 86 31 112/43 96 Mechanical Ventilator 25 08/02/17 03:08 88 30 25 08/02/17 03:00 86 32 108/45 96 Mechanical Ventilator 25 08/02/17 02:30 85 32 109/45 96 Mechanical Ventilator 25 08/02/17 02:00 85 34 103/41 97 Mechanical Ventilator 25 08/0218 01:30 85 35 103/59 97 Mechanical Ventilator 25 58/18 01:28 101 34 25 5/18 01:00 85 35 99/44 96 Mechanical Ventilator 25 18 00:30 96 36 103/45 96 Mechanical Ventilator 25 18 00:00 99.3 87 36 95/37 96 Mechanical Ventilator 25 99.3 08/02/17 00:00 89 08/02/17 00:00 25 18 23:30 92 33 104/50 96 Mechanical Ventilator 25 18 23:16 96 32 25 08/01/18 23:00 94 33 99/49 96 Mechanical Ventilator 25 08/01/17 22:30 97 35 95/50 96 Mechanical Ventilator 25 08/01/17 22:00 114 35 137/63 95 Mechanical Ventilator 25 08/01/17 21:30 113 37 130/65 96 Mechanical Ventilator 25 08/01/17 21:23 110 34 25 08/01/17 21:00 113 34 135/69 95 Mechanical Ventilator 25 08/01/17 20:30 115 35 165/53 96 Mechanical Ventilator 25 08/01/17 20:00 25 08/01/17 20:00 99.2 114 35 157/57 96 Mechanical Ventilator 25 99.2 08/01/17 20:00 114 08/01/17 19:30 109 31 128/69 96 Mechanical Ventilator 25 08/01/17 19:12 108 34 25 08/01/17 19:00 104 31 127/60 96 Mechanical Ventilator 30 18 18:30 98 30 88/55 96 Mechanical Ventilator 30 08/01/17 18:00 99.8 99 34 125/58 96 Mechanical Ventilator 30 99.8 18 17:30 98 30 121/50 96 Mechanical Ventilator 30 08/01/18 17:16 97 30 25 08/01/18 17:00 30 08/01/18 17:00 102/43 18 17:00 93 30 102/43 96 Mechanical Ventilator 30 18 16:30 88 30 108/44 96 Mechanical Ventilator 30 18 16:00 99.9 95 27 104/46 96 Mechanical Ventilator 30 99.9 08/01/18 16:00 95 08/01/18 16:00 25 5/7/18 16:00 27 5/7/18 16:00 104/46 08/01/17 15:47 117/45 08/01/17 15:30 98 31 136/46 96 Mechanical Ventilator 30 08/01/17 15:22 100 31 25 08/01/17 15:20 99.9 08/01/17 15:00 27 08/01/17 15:00 123/47 08/01/17 15:00 97 27 123/47 96 Mechanical Ventilator 30 08/01/17 14:44 28 08/01/17 14:43 100.9 08/01/17 14:30 96 28 124/53 96 Mechanical Ventilator 30 08/01/17 14:00 97 28 109/42 97 Mechanical Ventilator 30 08/01/17 14:00 28 08/01/17 14:00 109/42 08/01/17 13:00 28 08/01/17 13:00 124/47 08/01/17 13:00 89 27 108/41 97 Mechanical Ventilator 30 08/01/17 12:40 94 29 35 08/01/17 12:30 89 27 108/41 97 Mechanical Ventilator 30 08/01/17 12:00 88 08/01/17 12:00 26 08/01/17 12:00 93/44 08/01/17 12:00 100.9 90 26 93/44 97 Mechanical Ventilator 30 100.9 08/01/17 11:30 30 08/01/17 11:30 90 26 125/42 97 Mechanical Ventilator 30 08/01/17 11:16 100 28 35 08/01/17 11:00 26 08/01/17 11:00 130/52 08/01/17 11:00 97 26 130/52 93 Mechanical Ventilator 30 08/01/17 10:30 95 27 129/44 93 Mechanical Ventilator 30 08/01/17 10:00 24 08/01/17 10:00 89/36 08/01/17 10:00 96 24 89/36 95 Mechanical Ventilator 30 08/01/17 09:30 99 25 102/44 95 Mechanical Ventilator 30 08/01/17 09:27 98 27 35 08/01/17 09:00 100.3 98 26 111/45 96 Mechanical Ventilator 30 100.3 08/01/17 09:00 26 08/01/17 09:00 111/45 08/01/17 08:30 94 26 113/47 94 Mechanical Ventilator 30 Intake and Output 08/01/17 08/02/17 19:00 07:00 Intake Total 2875.168 ml 1217.01 ml Output Total 157 ml 110 ml Balance 2718.168 ml 1107.01 ml Intake Oral 0 ml 0 ml IV Total 2875.168 ml 1217.01 ml Output Urine Total 157 ml 110 ml # Bowel Movements 2 4 Laboratory Tests 08/01/17 11:00: Sodium Level 140, Potassium Level 2.5*L, Chloride Level 104, Carbon Dioxide Level 22, Anion Gap 14, Blood Urea Nitrogen 35H, Creatinine 3.6H, Estimat Glomerular Filtration Rate 13.5, Glucose Level 161H, Calcium Level 7.8L, Total Bilirubin 0.6, Aspartate Amino Transf (AST/SGOT) 21, Alanine Aminotransferase ( ALT/SGPT) 17, Alkaline Phosphatase 270H, Total Protein 5.2L, Albumin 1.0L, Globulin 4.2, Albumin/Globulin Ratio 0.2L 08/01/17 14:37: Arterial Blood pH 7.460H, Arterial Blood Partial Pressure CO2 35.2, Arterial Blood Partial Pressure O2 129.7H, Arterial Blood HCO3 25.0, Arterial Blood Oxygen Saturation 98.3H, Arterial Blood Base Excess 1.3, Ravi Test Positive 08/01/17 18:45: Potassium Level 2.9L 08/01/17 20:00: Potassium Level 3.0L 08/02/17 04:15: White Blood Count 20.4#H, Red Blood Count 3.54L, Hemoglobin 7.8L, Hematocrit 23.2L, Mean Corpuscular Volume 66L, Mean Corpuscular Hemoglobin 22.0L, Mean Corpuscular Hemoglobin Concent 33.5, Red Cell Distribution Width 14.8, Platelet Count 281, Mean Platelet Volume 6.7, Neutrophils (%) (Auto) , Lymphocytes (%) ( Auto) , Monocytes (%) (Auto) , Eosinophils (%) (Auto) , Basophils (%) (Auto) , Differential Total Cells Counted 100, Neutrophils % (Manual) 75, Lymphocytes % ( Manual) 7L, Monocytes % (Manual) 3, Eosinophils % (Manual) 0, Basophils % ( Manual) 0, Metamyelocytes % 1H, Band Neutrophils 14H, Platelet Estimate Adequate , Platelet Morphology Normal, Hypochromasia 1+, Microcytosis 1+, Sodium Level 140, Potassium Level 3.5, Chloride Level 105, Carbon Dioxide Level 24, Anion Gap 12, Blood Urea Nitrogen 43H, Creatinine 4.3H, Estimat Glomerular Filtration Rate 11.0, Glucose Level 122H, Calcium Level 8.2L, Ionized Calcium (Measured) 1.02L, Phosphorus Level 2.3L, Magnesium Level 1.7L Height (Feet): 5 Height (Inches): 5.00 Weight (Pounds): 307 General Appearance: WD/WN, no apparent distress, mild distress EENT: PERRL/EOMI, normal ENT inspection Neck: non-tender, normal alignment Cardiovascular: normal peripheral pulses, normal rate, regular rhythm Respiratory/Chest: chest wall non-tender, lungs clear Abdomen: normal bowel sounds, non tender Edema: no edema noted Arm (L), no edema noted Arm (R), no edema noted Leg (L), no edema noted Leg (R), no edema noted Pedal (L), no edema noted Pedal (R), no edema noted Generalized Carlton Guzmán M.D. August 02, 2017 08:14
[2017-08-02] MEDS ORDERED: Calcium Gluconate 1gm/10ml vial IVP SCH (08:30)
[2017-08-02] MEDS: Pantoprazole Inj IVP SCH (09:22)
--- NOTE | 2017-08-02 09:49 | Diagnostic Imaging Report ---
Indication:Pain and swelling Technique: Grayscale and duplex Doppler imaging of the left labia performed. Comparison: None Findings: There is inflammation with heterogeneous echogenic signal within the subcutaneous fat just deep to the skin. There is no abscess or drainable fluid collection identified. IMPRESSION: Marked inflammation likely phlegmon in the region of interest. No abscess identified
[2017-08-02] MEDS ORDERED: Potassium Phosphate 15 MM in NS 275 ML IV SCH (10:00)
[2017-08-02] MEDS: D5NS 1,000 ML IV SCH (10:12)
[2017-08-02] MEDS: Insulin Rate Change 1 Each MISC PRN ×5 (10:16→22:11)
--- NOTE | 2017-08-02 12:29 | Infectious Diseases Prog Note ---
Assessment/Plan Problems: (1) Cellulitis of abdominal wall Assessment & Plan: skin US showed phlegmon in the left labium area , she still has redness and tenderness spreading to the left lower abdomen , groin and labium with worsening leukocytosis , will switch vancomycin and zosyn empiric coverage to meropenem and zyvox , surgery will attempt to aspirate the left labium phlegmon if repeated US today shows any fluids collection (2) UTI (urinary tract infection) Assessment & Plan: culture grew strep agalactiae and staph aureua , she is already on vancomycin and zosyn (3) Pharyngitis, acute Assessment & Plan: already on zosyn (4) Septic shock Assessment & Plan: due to the above , blood culture is still negative , with worseing leukocytosis , will switch vancomycin and zosyn empiric coverage to meropenem and zyvox and repeat blood culture (5) Acute respiratory failure Assessment & Plan: due to the above, intubated in ED started on mechanical ventilation, recommend extractor operator eval and follow up (6) SCARLET (acute kidney injury) Assessment & Plan: due to the above, continue fluids for hydration and blood pressure support, nephrology is following, monitor vancomycin level closely (7) DKA (diabetic ketoacidoses) Assessment & Plan: due to poorly controlled diabetes and sepsis, S/P insulin drip in the ICU , continue close monitor of her blood glucose to keep between 80 -120 (8) Leg wound, left Assessment & Plan: with infection due to staph aureus and klebsiella oxytoca, already on zosyn and vancomycin, continue local wound care as per hospital protocol Subjective ROS Limited/Unobtainable: Yes Allergies: Coded Allergies: PENICILLINS (Verified Allergy, Unknown, 07/30/17) According to mother, the patient is allergic to Penicillins Subjective she was still intubated on mechanical ventilation , responds to verbal commands , on low dose of pressor for blood pressure support, has low grad fever today . redness on the lower abdomen is shifting to the left lower side of her abdomen , and less on the inner thighs, left labium is hard with possible infiltrates underneath the skin, and left groin lymphadenopathy , small skin break Objective Vital Signs Last 24 Hour Vital Signs Date Time Temp Pulse Resp B/P (MAP) Pulse Ox O2 Delivery O2 Flow Rate FiO2 5/8/18 12:00 99.6 86 32 88/42 100 Mechanical Ventilator 25 99.6 518 12:00 25 08/02/17 11:30 93 33 76/29 100 Mechanical Ventilator 25 518 11:20 97 45 25 5 11:00 96 32 134/47 100 Mechanical Ventilator 25 18 10:30 96 31 151/55 100 Mechanical Ventilator 25 08/02/17 10:00 99 33 135/57 99 Mechanical Ventilator 25 08/02/17 09:30 98 31 124/43 99 Mechanical Ventilator 25 08/02/17 09:29 99 31 25 08/02/17 09:00 101 31 115/52 99 Mechanical Ventilator 25 08/02/17 08:30 101 31 134/57 99 Mechanical Ventilator 25 08/02/17 08:00 101 08/02/17 08:00 25 08/02/17 08:00 98.9 103 32 124/61 99 Mechanical Ventilator 25 98.9 08/02/17 07:43 30 08/02/17 07:30 105 29 116/50 99 Mechanical Ventilator 25 08/02/17 07:27 103 32 25 08/02/17 07:00 105 29 116/50 99 Mechanical Ventilator 25 08/02/17 06:30 107 31 114/45 98 Mechanical Ventilator 25 08/02/17 06:00 114 34 136/54 98 Mechanical Ventilator 25 08/02/17 05:30 115 35 165/63 100 Mechanical Ventilator 25 08/02/17 05:28 118 31 25 08/02/17 05:00 108 33 164/63 98 Mechanical Ventilator 25 08/02/17 04:30 98 31 141/72 97 Mechanical Ventilator 25 08/02/17 04:00 99.6 87 31 122/44 96 Mechanical Ventilator 25 99.6 08/02/17 04:00 87 18 04:00 25 08/02/17 03:30 86 31 112/43 96 Mechanical Ventilator 25 08/02/17 03:08 88 30 25 08/02/17 03:00 86 32 108/45 96 Mechanical Ventilator 25 18 02:30 85 32 109/45 96 Mechanical Ventilator 25 18 02:00 85 34 103/41 97 Mechanical Ventilator 25 18 01:30 85 35 103/59 97 Mechanical Ventilator 25 08/02/17 01:28 101 34 25 5/8/18 01:00 85 35 99/44 96 Mechanical Ventilator 25 08/02/17 00:30 96 36 103/45 96 Mechanical Ventilator 25 08/02/17 00:00 99.3 87 36 95/37 96 Mechanical Ventilator 25 99.3 08/02/17 00:00 89 08/02/17 00:00 25 08/01/17 23:30 92 33 104/50 96 Mechanical Ventilator 25 08/01/17 23:16 96 32 25 08/01/17 23:00 94 33 99/49 96 Mechanical Ventilator 25 08/01/17 22:30 97 35 95/50 96 Mechanical Ventilator 25 08/01/17 22:00 114 35 137/63 95 Mechanical Ventilator 25 08/01/17 21:30 113 37 130/65 96 Mechanical Ventilator 25 08/01/17 21:23 110 34 25 08/01/17 21:00 113 34 135/69 95 Mechanical Ventilator 25 08/01/17 20:30 115 35 165/53 96 Mechanical Ventilator 25 08/01/17 20:00 25 08/01/17 20:00 99.2 114 35 157/57 96 Mechanical Ventilator 25 99.2 08/01/17 20:00 114 08/01/17 19:30 109 31 128/69 96 Mechanical Ventilator 25 08/01/17 19:12 108 34 25 08/01/17 19:00 104 31 127/60 96 Mechanical Ventilator 30 08/01/17 18:30 98 30 88/55 96 Mechanical Ventilator 30 08/01/17 18:00 99.8 99 34 125/58 96 Mechanical Ventilator 30 99.8 08/01/17 17:30 98 30 121/50 96 Mechanical Ventilator 30 08/01/17 17:16 97 30 25 08/01/17 17:00 30 08/01/17 17:00 102/43 08/01/17 17:00 93 30 102/43 96 Mechanical Ventilator 30 08/01/17 16:30 88 30 108/44 96 Mechanical Ventilator 30 08/01/17 16:00 99.9 95 27 104/46 96 Mechanical Ventilator 30 99.9 08/01/17 16:00 95 08/01/17 16:00 25 08/01/17 16:00 27 08/01/17 16:00 104/46 08/01/17 15:47 117/45 08/01/17 15:30 98 31 136/46 96 Mechanical Ventilator 30 08/01/17 15:22 100 31 25 08/01/17 15:20 99.9 08/01/17 15:00 27 08/01/17 15:00 123/47 08/01/17 15:00 97 27 123/47 96 Mechanical Ventilator 30 08/01/17 14:44 28 08/01/17 14:43 100.9 08/01/17 14:30 96 28 124/53 96 Mechanical Ventilator 30 08/01/17 14:00 97 28 109/42 97 Mechanical Ventilator 30 08/01/17 14:00 28 08/01/17 14:00 109/42 08/01/17 13:00 28 08/01/17 13:00 124/47 08/01/17 13:00 89 27 108/41 97 Mechanical Ventilator 30 08/01/17 12:40 94 29 35 08/01/17 12:30 89 27 108/41 97 Mechanical Ventilator 30 Height (Feet): 5 Height (Inches): 5.00 Weight (Pounds): 307 General Appearance: WD/WN, no acute distress HEENT: normocephalic, atraumatic, anicteric, mucous membranes moist Respiratory/Chest: chest wall non-tender, normal breath sounds, no respiratory distress, no accessory muscle use, decreased breath sounds Cardiovascular: normal peripheral pulses, normal rate, regular rhythm, no gallop/murmur, no JVD Abdomen: normal bowel sounds, soft, non tender, no organomegaly, non distended , no mass, no scars Extremities: no cyanosis, no clubbing Skin: no rash, other - red, thick and edematous on the left ower abdomina wall , extends to the left labium and groin Neurologic/Psychiatric: alert, responsive Lymphatic: no neck adenopathy, no groin adenopathy Musculoskeletal: normal muscle bulk, no effusion Laboratory Tests Test 08/01/17 14:37 08/01/17 18:45 08/01/17 20:00 08/02/17 04:15 Arterial Blood pH 7.460 (7.350-7.450) Arterial Blood Partial Pressure CO2 35.2 mmHg (35.0-45.0) Arterial Blood Partial Pressure O2 129.7 mmHg (75.0-100.0) H Arterial Blood HCO3 25.0 mmol/L (22.0-26.0) Arterial Blood Oxygen Saturation 98.3 % (92.0-98.0) H Arterial Blood Base Excess 1.3 Ravi Test Positive Potassium Level 2.9 MMOL/L (3.5-5.1) L 3.0 MMOL/L (3.5-5.1) L 3.5 MMOL/L (3.5-5.1) White Blood Count 20.4 K/UL (4.8-10.8) #H Red Blood Count 3.54 M/UL (4.20-5.40) L Hemoglobin 7.8 G/DL (12.0-16.0) L Hematocrit 23.2 % (37.0-47.0) L Mean Corpuscular Volume 66 FL (80-99) L Mean Corpuscular Hemoglobin 22.0 PG (27.0-31.0) L Mean Corpuscular Hemoglobin Concent 33.5 G/DL (32.0-36.0) Red Cell Distribution Width 14.8 % (11.6-14.8) Platelet Count 281 K/UL (150-450) Mean Platelet Volume 6.7 FL (6.5-10.1) Neutrophils (%) (Auto) % (45.0-75.0) Lymphocytes (%) (Auto) % (20.0-45.0) Monocytes (%) (Auto) % (1.0-10.0) Eosinophils (%) (Auto) % (0.0-3.0) Basophils (%) (Auto) % (0.0-2.0) Differential Total Cells Counted 100 Neutrophils % (Manual) 75 % (45-75) Lymphocytes % (Manual) 7 % (20-45) L Monocytes % (Manual) 3 % (1-10) Eosinophils % (Manual) 0 % (0-3) Basophils % (Manual) 0 % (0-2) Metamyelocytes % 1 % (0-0) H Band Neutrophils 14 % (0-8) H Platelet Estimate Adequate Platelet Morphology Normal Hypochromasia 1+ Microcytosis 1+ Sodium Level 140 MMOL/L (136-145) Chloride Level 105 MMOL/L (98-107) Carbon Dioxide Level 24 MMOL/L (21-32) Anion Gap 12 mmol/L (5-15) Blood Urea Nitrogen 43 mg/dL (7-18) H Creatinine 4.3 MG/DL (0.55-1.30) H Estimat Glomerular Filtration Rate 11.0 mL/min (>60) Glucose Level 122 MG/DL (74-106) H Calcium Level 8.2 MG/DL (8.5-10.1) L Ionized Calcium (Measured) 1.02 mmol/L (1.10-1.35) L Phosphorus Level 2.3 MG/DL (2.5-4.9) L Magnesium Level 1.7 MG/DL (1.8-2.4) L Test 08/02/17 09:20 Arterial Blood pH 7.396 (7.350-7.450) Arterial Blood Partial Pressure CO2 36.0 mmHg (35.0-45.0) Arterial Blood Partial Pressure O2 130.6 mmHg (75.0-100.0) H Arterial Blood HCO3 21.6 mmol/L (22.0-26.0) L Arterial Blood Oxygen Saturation 98.3 % (92.0-98.0) H Arterial Blood Base Excess -2.9 Ravi Test Positive Current Medications Medications (Trade) Dose Ordered Sig/Tommy Route PRN Reason Start Time Stop Time Status Last Admin Dose Admin Acetaminophen (Tylenol) 650 mg EVERY 6 HOURS PRN RECTAL Mild Pain (Pain Scale 1-3) 07/30/17 17:54 08/29/17 17:53 08/01/17 14:43 Chlorhexidine Gluconate (Idalia-Hex 2%) 1 applic DAILY@2000 TOPIC 07/30/17 20:00 08/29/17 19:59 08/01/17 19:49 Dextrose (Dextrose 50%) 25 ml PRN PRN IV HYPOGLYCEMIA 07/30/17 10:30 08/29/17 10:29 Dextrose (Dextrose 50%) 50 ml PRN PRN IV HYPOGLYCEMIA 07/30/17 11:00 08/29/17 10:59 Dextrose/Sodium Chloride 1,000 ml @ 75 mls/hr [id number] IV 08/01/17 09:00 08/31/17 08:59 08/02/17 10:12 Fentanyl Citrate 1000 mcg/Sodium Chloride 100 ml @ 0 mls/hr Q24H IV 07/31/17 18:30 08/07/17 18:29 08/02/17 07:43 Heparin Sodium (Porcine) (Heparin 5000 units/ml) 5,000 units EVERY 8 HOURS SUBQ 07/29/17 22:00 08/28/17 21:59 08/02/17 05:57 Insulin Human Regular (NovoLIN R) 5 units PRN PRN IV BS 200-299 07/30/17 11:00 08/29/17 10:59 07/31/17 11:58 Insulin Human Regular (NovoLIN R) 10 units PRN PRN IV BS=>300 07/30/17 11:00 08/29/17 10:59 Insulin Human Regular 100 units/ Sodium Chloride 101 ml @ 0 mls/hr Q24H IV 07/30/17 14:00 08/29/17 13:59 08/01/17 17:05 Miscellaneous Medication (Insulin Rate Change) 1 ea PRN PRN MISC Hyperglycemia 07/30/17 11:00 08/29/17 10:59 08/02/17 10:16 Norepinephrine Bitartrate 8 mg/ Dextrose 250 ml @ 0 mls/hr Q24H IV 07/30/17 08:00 08/29/17 07:59 08/01/17 15:47 Pantoprazole (Protonix) 40 mg DAILY IVP 07/30/17 09:00 08/29/17 08:59 08/02/17 09:22 Piperacillin Sod/ Tazobactam Sod 3.375 gm/Sodium Chloride 110 ml @ 27.5 mls/hr EVERY 8 HOURS IVPB 07/29/17 22:00 08/03/17 21:59 08/02/17 05:52 Silver Sulfadiazine (Silvadene Cream 25gm) 1 applic DAILY TOPIC 08/01/17 10:30 08/31/17 10:29 08/02/17 09:22 Vancomycin HCl (Vanco rx to dose) 1 ea DAILY PRN MISC Per rx protocol 07/29/17 16:00 08/28/17 15:59 Johanny Colbert M.D. August 02, 2017 12:29
[2017-08-02] MEDS ORDERED: Meropenem 1 GM in NS 55 ML IVPB SCH (14:00)
[2017-08-02] MEDS: Meropenem 1 GM in NS 110 ML IVPB SCH ×2 (14:25→22:36)
--- NOTE | 2017-08-02 16:26 | Operative Note - PDOC ---
Operative Note Operative Note Pre-op Diagnosis: sepsis, septic shock, hypotension, critical care Procedure: left radial arterial line insertion Post-op Diagnosis: same as pre-op Surgeon: emely Anesthesia: moderate sedation Specimen: none Complications: none Condition: stable Estimated Blood Loss: minimal Drains: none Implant(s) used?: No Indications for Procedure 46F septic shock hypotension, critically ill, on pressors. arterial line indicated and recommended. risks, benefits, and alteratives discussed in detail. consent obtained. Description of Procedure patient comfortable in hospital bed. left forearm prepped and draped in standard surgical fashion. Teak arterial line kit used to cannulate left radial artery. good arterial flow noted and wire placed over finder needle. catheter directed over wire and inserted without complication. IV arterial line tubing along placed and BP obtained. dressings applied. patient tolerated well. Rai Baker August 02, 2017 16:26
--- NOTE | 2017-08-02 16:38 | General Surgery Progress Note ---
General Surgery-Progress Note Subjective Additional Comments she is on vasopressor but more awake and alert Objective Last 24 Hour Vital Signs Date Time Temp Pulse Resp B/P (MAP) Pulse Ox O2 Delivery O2 Flow Rate FiO2 08/02/17 16:30 82 28 25 08/02/17 16:00 25 08/02/17 16:00 82 08/02/17 16:00 100.0 81 28 138/69 100 Mechanical Ventilator 25 100.0 08/02/17 15:30 81 28 103/46 100 Mechanical Ventilator 25 08/02/17 15:04 84 30 25 08/02/17 15:00 85 28 100/44 100 Mechanical Ventilator 25 08/02/17 14:30 84 22 107/48 100 Mechanical Ventilator 25 08/02/17 14:00 84 14 119/47 100 Mechanical Ventilator 25 08/02/17 13:30 84 25 119/48 100 Mechanical Ventilator 25 08/02/17 13:00 24 08/02/17 13:00 111/43 08/02/17 13:00 84 31 111/43 100 Mechanical Ventilator 25 08/02/17 12:38 84 35 25 08/02/17 12:30 85 31 121/42 100 Mechanical Ventilator 25 08/02/17 12:00 99.6 86 32 88/42 100 Mechanical Ventilator 25 99.6 08/02/17 12:00 87 08/02/17 12:00 25 08/02/17 12:00 24 08/02/17 11:30 93 33 76/29 100 Mechanical Ventilator 25 08/02/17 11:20 97 45 25 08/02/17 11:00 32 08/02/17 11:00 134/47 08/02/17 11:00 96 32 134/47 100 Mechanical Ventilator 25 08/02/17 10:30 96 31 151/55 100 Mechanical Ventilator 25 08/02/17 10:00 99 33 135/57 99 Mechanical Ventilator 25 08/02/17 10:00 33 08/02/17 10:00 135/57 08/02/17 09:30 98 31 124/43 99 Mechanical Ventilator 25 08/02/17 09:29 99 31 25 08/02/17 09:00 101 31 115/52 99 Mechanical Ventilator 25 08/02/17 09:00 31 08/02/17 09:00 115/52 08/02/17 08:30 101 31 134/57 99 Mechanical Ventilator 25 08/02/17 08:00 101 08/02/17 08:00 25 08/02/17 08:00 32 08/02/17 08:00 124/61 08/02/17 08:00 98.9 103 32 124/61 99 Mechanical Ventilator 25 98.9 08/02/17 07:43 30 08/02/17 07:30 105 29 116/50 99 Mechanical Ventilator 25 08/02/17 07:27 103 32 25 08/02/17 07:00 105 29 116/50 99 Mechanical Ventilator 25 08/02/17 07:00 30 08/02/17 07:00 116/50 08/02/17 06:30 107 31 114/45 98 Mechanical Ventilator 25 08/02/17 06:00 114 34 136/54 98 Mechanical Ventilator 25 08/02/17 05:30 115 35 165/63 100 Mechanical Ventilator 25 08/02/17 05:28 118 31 25 08/02/17 05:00 108 33 164/63 98 Mechanical Ventilator 25 08/02/17 04:30 98 31 141/72 97 Mechanical Ventilator 25 08/02/17 04:00 99.6 87 31 122/44 96 Mechanical Ventilator 25 99.6 08/02/17 04:00 87 08/02/17 04:00 25 08/02/17 03:30 86 31 112/43 96 Mechanical Ventilator 25 08/02/17 03:08 88 30 25 08/02/17 03:00 86 32 108/45 96 Mechanical Ventilator 25 08/02/17 02:30 85 32 109/45 96 Mechanical Ventilator 25 08/02/17 02:00 85 34 103/41 97 Mechanical Ventilator 25 08/02/17 01:30 85 35 103/59 97 Mechanical Ventilator 25 08/02/17 01:28 101 34 25 08/02/17 01:00 85 35 99/44 96 Mechanical Ventilator 25 08/02/17 00:30 96 36 103/45 96 Mechanical Ventilator 25 08/02/17 00:00 99.3 87 36 95/37 96 Mechanical Ventilator 25 99.3 08/02/17 00:00 89 08/02/17 00:00 25 08/01/17 23:30 92 33 104/50 96 Mechanical Ventilator 25 08/01/17 23:16 96 32 25 08/01/17 23:00 94 33 99/49 96 Mechanical Ventilator 25 08/01/17 22:30 97 35 95/50 96 Mechanical Ventilator 25 08/01/17 22:00 114 35 137/63 95 Mechanical Ventilator 25 08/01/17 21:30 113 37 130/65 96 Mechanical Ventilator 25 08/01/17 21:23 110 34 25 08/01/17 21:00 113 34 135/69 95 Mechanical Ventilator 25 08/01/17 20:30 115 35 165/53 96 Mechanical Ventilator 25 08/01/17 20:00 25 08/01/17 20:00 99.2 114 35 157/57 96 Mechanical Ventilator 25 99.2 08/01/17 20:00 114 08/01/17 19:30 109 31 128/69 96 Mechanical Ventilator 25 08/01/17 19:12 108 34 25 08/01/17 19:00 104 31 127/60 96 Mechanical Ventilator 30 08/01/17 18:30 98 30 88/55 96 Mechanical Ventilator 30 08/01/17 18:00 99.8 99 34 125/58 96 Mechanical Ventilator 30 99.8 08/01/17 17:30 98 30 121/50 96 Mechanical Ventilator 30 08/01/17 17:16 97 30 25 08/01/17 17:00 30 08/01/17 17:00 102/43 08/01/17 17:00 93 30 102/43 96 Mechanical Ventilator 30 I&O Intake and Output 08/01/17 08/02/17 19:00 07:00 Intake Total 2875.168 ml 1300.76 ml Output Total 157 ml 120 ml Balance 2718.168 ml 1180.76 ml Intake Oral 0 ml 0 ml IV Total 2875.168 ml 1300.76 ml Output Urine Total 157 ml 120 ml # Bowel Movements 2 4 Respiratory: clear Abdomen: other - obese but soft erythema lower abdomen has shifted towards left hip has erythema & induration left genital area Laboratory Tests Test 08/01/17 18:45 08/01/17 20:00 08/02/17 04:15 08/02/17 09:20 Potassium Level 2.9 MMOL/L (3.5-5.1) L 3.0 MMOL/L (3.5-5.1) L 3.5 MMOL/L (3.5-5.1) White Blood Count 20.4 K/UL (4.8-10.8) #H Red Blood Count 3.54 M/UL (4.20-5.40) L Hemoglobin 7.8 G/DL (12.0-16.0) L Hematocrit 23.2 % (37.0-47.0) L Mean Corpuscular Volume 66 FL (80-99) L Mean Corpuscular Hemoglobin 22.0 PG (27.0-31.0) L Mean Corpuscular Hemoglobin Concent 33.5 G/DL (32.0-36.0) Red Cell Distribution Width 14.8 % (11.6-14.8) Platelet Count 281 K/UL (150-450) Mean Platelet Volume 6.7 FL (6.5-10.1) Neutrophils (%) (Auto) % (45.0-75.0) Lymphocytes (%) (Auto) % (20.0-45.0) Monocytes (%) (Auto) % (1.0-10.0) Eosinophils (%) (Auto) % (0.0-3.0) Basophils (%) (Auto) % (0.0-2.0) Differential Total Cells Counted 100 Neutrophils % (Manual) 75 % (45-75) Lymphocytes % (Manual) 7 % (20-45) L Monocytes % (Manual) 3 % (1-10) Eosinophils % (Manual) 0 % (0-3) Basophils % (Manual) 0 % (0-2) Metamyelocytes % 1 % (0-0) H Band Neutrophils 14 % (0-8) H Platelet Estimate Adequate Platelet Morphology Normal Hypochromasia 1+ Microcytosis 1+ Sodium Level 140 MMOL/L (136-145) Chloride Level 105 MMOL/L (98-107) Carbon Dioxide Level 24 MMOL/L (21-32) Anion Gap 12 mmol/L (5-15) Blood Urea Nitrogen 43 mg/dL (7-18) H Creatinine 4.3 MG/DL (0.55-1.30) H Estimat Glomerular Filtration Rate 11.0 mL/min (>60) Glucose Level 122 MG/DL (74-106) H Calcium Level 8.2 MG/DL (8.5-10.1) L Ionized Calcium (Measured) 1.02 mmol/L (1.10-1.35) L Phosphorus Level 2.3 MG/DL (2.5-4.9) L Magnesium Level 1.7 MG/DL (1.8-2.4) L Arterial Blood pH 7.396 (7.350-7.450) Arterial Blood Partial Pressure CO2 36.0 mmHg (35.0-45.0) Arterial Blood Partial Pressure O2 130.6 mmHg (75.0-100.0) H Arterial Blood HCO3 21.6 mmol/L (22.0-26.0) L Arterial Blood Oxygen Saturation 98.3 % (92.0-98.0) H Arterial Blood Base Excess -2.9 Ravi Test Positive Assessment Additional Comments cellulitis lower abdomen R/O abscess Plan Additional Comments Ultrasound of genital area and lower abdomen SALBADOR STEWART August 02, 2017 16:38
--- NOTE | 2017-08-02 16:52 | Diagnostic Imaging Report ---
Indication:Pain and swelling Technique: Grayscale and duplex Doppler imaging of the left groin/labial performed. Comparison: 08/01/2017 Findings: There is subcutaneous edema and inflammation. Some nodes are seen in the left inguinal region. There is no abscess identified. IMPRESSION: No abscess identified
[2017-08-02] MEDS: Dyna-Hex 2% Top Sol 2oz TOPIC SCH (20:21)
--- NOTE | 2017-08-02 22:26 | Pulmonolgy Critical Care Note ---
Critical Care - Asmt/Plan Assessment/Plan: Patient is a 46 year old woman admitted with abdominal wall cellulitis, severe Diabetic Ketoacidosis, currently intubated and sedated in the ICU On antibiotics per ID low dose levophed PRN, off bicarb gtt, s/p HD AC 18 vt 500 p5 FIO2 25 Problems: (1) Cellulitis of abdominal wall Assessment & Plan: rule out necrotizing fasciitis , antibiotics per ID, surgery following (2) UTI (urinary tract infection) on Meropenem/Zyvox (3) Pharyngitis, acute Antibiotics/ID (4) Septic shock Assessment & Plan: due to the above will send blood culture and start vancomycin with zosyn empiric coverage, remains on Levophed intermittently (5) Acute respiratory failure Assessment & Plan: due to the above, intubated in ED continue on mechanical ventilation, lighten sedation PRN, Wean ventilator as tolerated oncce off pressors (6) SCARLET (acute kidney injury) Assessment & Plan: due to the above, continue fluids for hydration and blood pressure support, nephrology is following (7) DKA (diabetic ketoacidoses)/Hyponatremia Assessment & Plan: due to poorly controlled diabetes and sepsis, recommend insulin drip in the ICU with close monitor of her blood glucose to keep between 80-120 Subjective Allergies: Coded Allergies: No Known Allergies (Unverified , 07/29/17) Objective Vital Signs Last 24 Hour Vital Signs Date Time Temp Pulse Resp B/P (MAP) Pulse Ox O2 Delivery O2 Flow Rate FiO2 07/29/17 16:30 82 25 35 07/29/17 15:04 97.0 79 34 103/98 99 Room Air 97.0 07/29/17 13:02 97.0 100 16 73/49 98 Room Air 97.0 Height (Feet): 5 Height (Inches): 5.00 Weight (Pounds): 250 Patient sedated on the ventilator Obese HEENT: NCAT, PERRL, moist MM Chest: CTAB, equal BS, 8.0 ETT 23cm Heart: HS1, Hs2 RRR Abdomen: Obese, erethematous area lower abdominal wall Extremeties: No rashes STUD DRIVER: No focal signs noted, no seizures Laboratory Tests Test 07/29/17 13:55 07/29/17 15:00 07/29/17 15:34 White Blood Count 36.2 K/UL (4.8-10.8) *H Red Blood Count 5.09 M/UL (4.20-5.40) Hemoglobin 10.5 G/DL (12.0-16.0) L Hematocrit 36.4 % (37.0-47.0) L Mean Corpuscular Volume 71 FL (80-99) L Mean Corpuscular Hemoglobin 20.6 PG (27.0-31.0) L Mean Corpuscular Hemoglobin Concent 28.9 G/DL (32.0-36.0) L Red Cell Distribution Width 16.2 % (11.6-14.8) H Platelet Count 525 K/UL (150-450) H Mean Platelet Volume 8.3 FL (6.5-10.1) Neutrophils (%) (Auto) % (45.0-75.0) Lymphocytes (%) (Auto) % (20.0-45.0) Monocytes (%) (Auto) % (1.0-10.0) Eosinophils (%) (Auto) % (0.0-3.0) Basophils (%) (Auto) % (0.0-2.0) Differential Total Cells Counted 100 Neutrophils % (Manual) 69 % (45-75) Lymphocytes % (Manual) 10 % (20-45) L Monocytes % (Manual) 5 % (1-10) Eosinophils % (Manual) 0 % (0-3) Basophils % (Manual) 0 % (0-2) Band Neutrophils 16 % (0-8) H Platelet Estimate Increased H Platelet Morphology Giant Platelets Occasional Polychromasia 1+ Hypochromasia 1+ Anisocytosis 1+ Microcytosis 1+ D-Dimer 1.85 mg/L FEU (0.00-0.49) H Urine Color Pale yellow Urine Appearance Clear Urine pH 5 (4.5-8.0) Urine Specific [place] 1.020 (1.005-1.035) Urine Protein 3+ (NEGATIVE) H Urine Glucose (UA) 4+ (NEGATIVE) H Urine Ketones 3+ (NEGATIVE) H Urine Occult Blood 5+ (NEGATIVE) H Urine Nitrite Negative (NEGATIVE) Urine Bilirubin Negative (NEGATIVE) Urine Urobilinogen Normal MG/DL (0.0-1.0) Urine Leukocyte Esterase 3+ (NEGATIVE) H Urine RBC 5-10 /HPF (0 - 2) H Urine WBC 5-10 /HPF (0 - 2) H Urine Squamous Epithelial Cells Moderate /LPF (NONE/OCC) H Urine Bacteria Few /HPF (NONE) Urine HCG, Qualitative Negative (NEGATIVE) Sodium Level 118 MMOL/L (136-145) *L Potassium Level 5.0 MMOL/L (3.5-5.1) Chloride Level 85 MMOL/L (98-107) L Carbon Dioxide Level < 5 MMOL/L (21-32) *L Blood Urea Nitrogen 28 mg/dL (7-18) H Creatinine 1.8 MG/DL (0.55-1.30) H Estimat Glomerular Filtration Rate 30.1 mL/min (>60) Glucose Level 868 MG/DL (74-106) *H Calcium Level 10.7 MG/DL (8.5-10.1) H Total Bilirubin 0.7 MG/DL (0.2-1.0) Aspartate Amino Transf (AST/SGOT) 44 U/L (15-37) H Alanine Aminotransferase (ALT/SGPT) 29 U/L (12-78) Alkaline Phosphatase 337 U/L (46-116) H Total Creatine Kinase 159 U/L (26-308) Creatine Kinase MB 3.3 NG/ML (0.0-3.6) Creatine Kinase MB Relative Index 2.0 Troponin I 0.000 ng/mL (0.000-0.056) Pro-B-Type Natriuretic Peptide 5024 pg/mL (0-125) H Total Protein 8.3 G/DL (6.4-8.2) H Albumin 2.3 G/DL (3.4-5.0) L Globulin 6.0 g/dL Albumin/Globulin Ratio 0.4 (1.0-2.7) L Lipase 47 U/L (73-393) L Urine Opiates Screen Negative (NEGATIVE) Urine Barbiturates Screen Negative (NEGATIVE) Phencyclidine (PCP) Screen Negative (NEGATIVE) Urine Amphetamines Screen Negative (NEGATIVE) Urine Benzodiazepines Screen Negative (NEGATIVE) Urine Cocaine Screen Negative (NEGATIVE) Urine Marijuana (THC) Screen Negative (NEGATIVE) Lactic Acid Level 1.10 mmol/L (0.66-2.22) Arterial Blood pH 6.830 (7.350-7.450) Arterial Blood Partial Pressure CO2 21.0 mmHg (35.0-45.0) *L Arterial Blood Partial Pressure O2 108.8 mmHg (75.0-100.0) H Arterial Blood HCO3 3.4 mmol/L (22.0-26.0) L Arterial Blood Oxygen Saturation 95.7 % (92.0-98.0) Arterial Blood Base Excess -29.1 Ravi Test Positive Current Medications Medications (Trade) Dose Ordered Sig/Tommy Route PRN Reason Start Time Stop Time Status Last Admin Dose Admin Insulin Human Regular 100 units/ Sodium Chloride 100 ml @ 5 mls/hr Q24H IV 07/29/17 14:15 08/28/17 14:14 Norepinephrine Bitartrate 4 mg/ Dextrose 250 ml @ 0 mls/hr Q24H IV 07/29/17 16:45 08/28/17 16:44 Piperacillin Sod/ Tazobactam Sod 3.375 gm/Sodium Chloride 110 ml @ 27.5 mls/hr EVERY 8 HOURS IVPB 07/29/17 22:00 08/03/17 21:59 Vancomycin HCl (Vanco rx to dose) 1 ea DAILY PRN MISC Per rx protocol 07/29/17 16:00 08/28/17 15:59 Vancomycin HCl 500 mg/Dextrose 110 ml @ 110 mls/hr ONCE ONCE IVPB 07/29/17 18:00 07/29/17 18:59 Critical Care - Objective Last 24 Hour Vital Signs Date Time Temp Pulse Resp B/P (MAP) Pulse Ox O2 Delivery O2 Flow Rate FiO2 08/02/17 21:30 81 19 125/51 100 Mechanical Ventilator 25 08/02/17 21:13 82 33 25 08/02/17 21:00 81 19 125/51 100 Mechanical Ventilator 25 08/02/17 21:00 82 08/02/17 20:30 99.3 81 26 116/16 100 Mechanical Ventilator 25 99.3 08/02/17 20:00 25 08/02/17 20:00 82 28 130/52 100 Mechanical Ventilator 25 08/02/17 19:30 86 28 124/52 100 Mechanical Ventilator 25 08/02/17 19:11 85 34 25 08/02/17 19:00 83 29 124/52 100 Mechanical Ventilator 25 08/02/17 18:30 82 21 116/53 100 Mechanical Ventilator 25 08/02/17 18:00 99.6 84 21 137/61 100 Mechanical Ventilator 25 99.6 08/02/17 18:00 30 08/02/17 18:00 120/55 08/02/17 17:30 80 21 93/43 100 Mechanical Ventilator 25 08/02/17 17:30 26 08/02/17 17:00 81 22 99/44 100 Mechanical Ventilator 25 08/02/17 17:00 22 08/02/17 17:00 99/44 08/02/17 16:30 82 28 25 08/02/17 16:30 84 29 111/51 100 Mechanical Ventilator 25 08/02/17 16:00 25 08/02/17 16:00 82 08/02/17 16:00 100.0 81 28 138/69 100 Mechanical Ventilator 25 100.0 08/02/17 16:00 28 08/02/17 15:30 81 28 103/46 100 Mechanical Ventilator 25 08/02/17 15:04 84 30 25 08/02/17 15:00 85 28 100/44 100 Mechanical Ventilator 25 08/02/17 15:00 28 08/02/17 15:00 106/48 08/02/17 14:30 84 22 107/48 100 Mechanical Ventilator 25 08/02/17 14:00 84 14 119/47 100 Mechanical Ventilator 25 08/02/17 14:00 21 08/02/17 14:00 119/47 08/02/17 13:30 84 25 119/48 100 Mechanical Ventilator 25 08/02/17 13:00 24 08/02/17 13:00 111/43 08/02/17 13:00 84 31 111/43 100 Mechanical Ventilator 25 08/02/17 12:38 84 35 25 08/02/17 12:30 85 31 121/42 100 Mechanical Ventilator 25 08/02/17 12:00 99.6 86 32 88/42 100 Mechanical Ventilator 25 99.6 08/02/17 12:00 87 08/02/17 12:00 25 08/02/17 12:00 24 08/02/17 11:30 93 33 76/29 100 Mechanical Ventilator 25 08/02/17 11:20 97 45 25 08/02/17 11:00 32 08/02/17 11:00 134/47 08/02/17 11:00 96 32 134/47 100 Mechanical Ventilator 25 08/02/17 10:30 96 31 151/55 100 Mechanical Ventilator 25 08/02/17 10:00 99 33 135/57 99 Mechanical Ventilator 25 08/02/17 10:00 33 08/02/17 10:00 135/57 08/02/17 09:30 98 31 124/43 99 Mechanical Ventilator 25 08/02/17 09:29 99 31 25 08/02/17 09:00 101 31 115/52 99 Mechanical Ventilator 25 08/02/17 09:00 31 08/02/17 09:00 115/52 08/02/17 08:30 101 31 134/57 99 Mechanical Ventilator 25 08/02/17 08:00 101 08/02/17 08:00 25 08/02/17 08:00 32 08/02/17 08:00 124/61 08/02/17 08:00 98.9 103 32 124/61 99 Mechanical Ventilator 25 98.9 08/02/17 07:43 30 08/02/17 07:30 105 29 116/50 99 Mechanical Ventilator 25 08/02/17 07:27 103 32 25 08/02/17 07:00 105 29 116/50 99 Mechanical Ventilator 25 08/02/17 07:00 30 08/02/17 07:00 116/50 08/02/17 06:30 107 31 114/45 98 Mechanical Ventilator 25 08/02/17 06:00 114 34 136/54 98 Mechanical Ventilator 25 08/02/17 05:30 115 35 165/63 100 Mechanical Ventilator 25 08/02/17 05:28 118 31 25 08/02/17 05:00 108 33 164/63 98 Mechanical Ventilator 25 08/02/17 04:30 98 31 141/72 97 Mechanical Ventilator 25 08/02/17 04:00 99.6 87 31 122/44 96 Mechanical Ventilator 25 99.6 08/02/17 04:00 87 08/02/17 04:00 25 08/02/17 03:30 86 31 112/43 96 Mechanical Ventilator 25 08/02/17 03:08 88 30 25 08/02/17 03:00 86 32 108/45 96 Mechanical Ventilator 25 08/02/17 02:30 85 32 109/45 96 Mechanical Ventilator 25 08/02/17 02:00 85 34 103/41 97 Mechanical Ventilator 25 08/02/17 01:30 85 35 103/59 97 Mechanical Ventilator 25 08/02/17 01:28 101 34 25 08/02/17 01:00 85 35 99/44 96 Mechanical Ventilator 25 08/02/17 00:30 96 36 103/45 96 Mechanical Ventilator 25 08/02/17 00:00 99.3 87 36 95/37 96 Mechanical Ventilator 25 99.3 08/02/17 00:00 89 08/02/17 00:00 25 08/01/17 23:30 92 33 104/50 96 Mechanical Ventilator 25 08/01/17 23:16 96 32 25 08/01/17 23:00 94 33 99/49 96 Mechanical Ventilator 25 08/01/17 22:30 97 35 95/50 96 Mechanical Ventilator 25 Accucheck: 147 Critical Care - Subjective ROS Limited/Unobtainable: Yes Condition: critical IV Access: central EKG Rhythm: Sinus Rhythm FI02: 25 Vent Support Breath Rate: 18 Vent Support Mode: AC Vent Tidal Volume: 500 Sputum Amount: Small PEEP: 5.0 PIP: 20 I&O: Intake and Output 08/01/17 08/02/17 19:00 07:00 Intake Total 2875.168 ml 1300.76 ml Output Total 157 ml 120 ml Balance 2718.168 ml 1180.76 ml Intake Oral 0 ml 0 ml IV Total 2875.168 ml 1300.76 ml Output Urine Total 157 ml 120 ml # Bowel Movements 2 4 ET-Tube: 8.0 ET Position: 22 Marko Chaney M.D. August 02, 2017 22:25
--- NOTE | 2017-08-02 23:16 | Cardiology Progress Note ---
Assessment/Plan Assessment/Plan COVERAGE FOR DR. SPARROW 1. Septic shock on Levophed gtt, Echocardiogram showed EF 60%. 2. Diabetic ketoacidosis, on IV fluids and insulin. 3. Morbid obesity. 4. Respiratory failure, currently on the ventilator. 5. SCARLET now on HD Subjective Subjective Sinus rhythm at 83. Intubated, awake. Objective Last 24 Hour Vital Signs Date Time Temp Pulse Resp B/P (MAP) Pulse Ox O2 Delivery O2 Flow Rate FiO2 08/02/17 22:39 83 32 25 08/02/17 22:30 82 28 137/61 100 Mechanical Ventilator 25 08/02/17 22:00 79 18 109/51 100 Mechanical Ventilator 25 08/02/17 21:30 81 19 125/51 100 Mechanical Ventilator 25 08/02/17 21:13 82 33 25 08/02/17 21:00 81 19 125/51 100 Mechanical Ventilator 25 08/02/17 21:00 82 08/02/17 20:30 99.3 81 26 116/16 100 Mechanical Ventilator 25 99.3 08/02/17 20:00 25 08/02/17 20:00 82 28 130/52 100 Mechanical Ventilator 25 08/02/17 19:30 86 28 124/52 100 Mechanical Ventilator 25 08/02/17 19:11 85 34 25 08/02/17 19:00 83 29 124/52 100 Mechanical Ventilator 25 08/02/17 18:30 82 21 116/53 100 Mechanical Ventilator 25 08/02/17 18:00 99.6 84 21 137/61 100 Mechanical Ventilator 25 99.6 08/02/17 18:00 30 08/02/17 18:00 120/55 08/02/17 17:30 80 21 93/43 100 Mechanical Ventilator 25 08/02/17 17:30 26 08/02/17 17:00 81 22 99/44 100 Mechanical Ventilator 25 08/02/17 17:00 22 08/02/17 17:00 99/44 08/02/17 16:30 82 28 25 08/02/17 16:30 84 29 111/51 100 Mechanical Ventilator 25 08/02/17 16:00 25 08/02/17 16:00 82 08/02/17 16:00 100.0 81 28 138/69 100 Mechanical Ventilator 25 100.0 08/02/17 16:00 28 08/02/17 15:30 81 28 103/46 100 Mechanical Ventilator 25 08/02/17 15:04 84 30 25 08/02/17 15:00 85 28 100/44 100 Mechanical Ventilator 25 08/02/17 15:00 28 08/02/17 15:00 106/48 08/02/17 14:30 84 22 107/48 100 Mechanical Ventilator 25 08/02/17 14:00 84 14 119/47 100 Mechanical Ventilator 25 08/02/17 14:00 21 08/02/17 14:00 119/47 08/02/17 13:30 84 25 119/48 100 Mechanical Ventilator 25 08/02/17 13:00 24 08/02/17 13:00 111/43 08/02/17 13:00 84 31 111/43 100 Mechanical Ventilator 25 08/02/17 12:38 84 35 25 08/02/17 12:30 85 31 121/42 100 Mechanical Ventilator 25 08/02/17 12:00 99.6 86 32 88/42 100 Mechanical Ventilator 25 99.6 08/02/17 12:00 87 08/02/17 12:00 25 08/02/17 12:00 24 08/02/17 11:30 93 33 76/29 100 Mechanical Ventilator 25 08/02/17 11:20 97 45 25 08/02/17 11:00 32 08/02/17 11:00 134/47 08/02/17 11:00 96 32 134/47 100 Mechanical Ventilator 25 08/02/17 10:30 96 31 151/55 100 Mechanical Ventilator 25 08/02/17 10:00 99 33 135/57 99 Mechanical Ventilator 25 08/02/17 10:00 33 08/02/17 10:00 135/57 08/02/17 09:30 98 31 124/43 99 Mechanical Ventilator 25 08/02/17 09:29 99 31 25 08/02/17 09:00 101 31 115/52 99 Mechanical Ventilator 25 08/02/17 09:00 31 08/02/17 09:00 115/52 08/02/17 08:30 101 31 134/57 99 Mechanical Ventilator 25 08/02/17 08:00 101 08/02/17 08:00 25 08/02/17 08:00 32 08/02/17 08:00 124/61 08/02/17 08:00 98.9 103 32 124/61 99 Mechanical Ventilator 25 98.9 5/8/18 07:43 30 08/02/17 07:30 105 29 116/50 99 Mechanical Ventilator 25 08/02/17 07:27 103 32 25 08/02/17 07:00 105 29 116/50 99 Mechanical Ventilator 25 08/02/17 07:00 30 08/02/17 07:00 116/50 08/02/17 06:30 107 31 114/45 98 Mechanical Ventilator 25 08/02/17 06:00 114 34 136/54 98 Mechanical Ventilator 25 08/02/17 05:30 115 35 165/63 100 Mechanical Ventilator 25 08/02/17 05:28 118 31 25 08/02/17 05:00 108 33 164/63 98 Mechanical Ventilator 25 08/02/17 04:30 98 31 141/72 97 Mechanical Ventilator 25 08/02/17 04:00 99.6 87 31 122/44 96 Mechanical Ventilator 25 99.6 08/02/17 04:00 87 08/02/17 04:00 25 08/02/17 03:30 86 31 112/43 96 Mechanical Ventilator 25 08/02/17 03:08 88 30 25 08/02/17 03:00 86 32 108/45 96 Mechanical Ventilator 25 08/02/17 02:30 85 32 109/45 96 Mechanical Ventilator 25 08/02/17 02:00 85 34 103/41 97 Mechanical Ventilator 25 08/02/17 01:30 85 35 103/59 97 Mechanical Ventilator 25 08/02/17 01:28 101 34 25 08/02/17 01:00 85 35 99/44 96 Mechanical Ventilator 25 08/02/17 00:30 96 36 103/45 96 Mechanical Ventilator 25 08/02/17 00:00 99.3 87 36 95/37 96 Mechanical Ventilator 25 99.3 08/02/17 00:00 89 08/02/17 00:00 25 08/01/17 23:30 92 33 104/50 96 Mechanical Ventilator 25 08/01/17 23:16 96 32 25 Intake and Output 08/01/17 08/02/17 19:00 07:00 Intake Total 2875.168 ml 1300.76 ml Output Total 157 ml 120 ml Balance 2718.168 ml 1180.76 ml Intake Oral 0 ml 0 ml IV Total 2875.168 ml 1300.76 ml Output Urine Total 157 ml 120 ml # Bowel Movements 2 4 2D Echo: EF 65%, RVSP 57 mmHg, Mild MR Laboratory Tests Test 08/02/17 04:15 08/02/17 09:20 White Blood Count 20.4 K/UL (4.8-10.8) #H Red Blood Count 3.54 M/UL (4.20-5.40) L Hemoglobin 7.8 G/DL (12.0-16.0) L Hematocrit 23.2 % (37.0-47.0) L Mean Corpuscular Volume 66 FL (80-99) L Mean Corpuscular Hemoglobin 22.0 PG (27.0-31.0) L Mean Corpuscular Hemoglobin Concent 33.5 G/DL (32.0-36.0) Red Cell Distribution Width 14.8 % (11.6-14.8) Platelet Count 281 K/UL (150-450) Mean Platelet Volume 6.7 FL (6.5-10.1) Neutrophils (%) (Auto) % (45.0-75.0) Lymphocytes (%) (Auto) % (20.0-45.0) Monocytes (%) (Auto) % (1.0-10.0) Eosinophils (%) (Auto) % (0.0-3.0) Basophils (%) (Auto) % (0.0-2.0) Differential Total Cells Counted 100 Neutrophils % (Manual) 75 % (45-75) Lymphocytes % (Manual) 7 % (20-45) L Monocytes % (Manual) 3 % (1-10) Eosinophils % (Manual) 0 % (0-3) Basophils % (Manual) 0 % (0-2) Metamyelocytes % 1 % (0-0) H Band Neutrophils 14 % (0-8) H Platelet Estimate Adequate Platelet Morphology Normal Hypochromasia 1+ Microcytosis 1+ Sodium Level 140 MMOL/L (136-145) Potassium Level 3.5 MMOL/L (3.5-5.1) Chloride Level 105 MMOL/L (98-107) Carbon Dioxide Level 24 MMOL/L (21-32) Anion Gap 12 mmol/L (5-15) Blood Urea Nitrogen 43 mg/dL (7-18) H Creatinine 4.3 MG/DL (0.55-1.30) H Estimat Glomerular Filtration Rate 11.0 mL/min (>60) Glucose Level 122 MG/DL (74-106) H Calcium Level 8.2 MG/DL (8.5-10.1) L Ionized Calcium (Measured) 1.02 mmol/L (1.10-1.35) L Phosphorus Level 2.3 MG/DL (2.5-4.9) L Magnesium Level 1.7 MG/DL (1.8-2.4) L Arterial Blood pH 7.396 (7.350-7.450) Arterial Blood Partial Pressure CO2 36.0 mmHg (35.0-45.0) Arterial Blood Partial Pressure O2 130.6 mmHg (75.0-100.0) H Arterial Blood HCO3 21.6 mmol/L (22.0-26.0) L Arterial Blood Oxygen Saturation 98.3 % (92.0-98.0) H Arterial Blood Base Excess -2.9 Ravi Test Positive Objective HEAD AND NECK: Shows no JVD, orally intubated. LUNGS: Coarse rhonchi. CARDIOVASCULAR: Regular S1 and S2 with no gallop. ABDOMEN: Cellulitis of the lower abdomen and erythema. EXTREMITIES: There is 1+ pitting edema.BEVERLEY Gagnon August 02, 2017 23:16
[2017-08-03] VITALS (48 sets, daily range): BP systolic 88–188; BP diastolic 36–85
[2017-08-03] MEDS: Insulin Rate Change 1 Each MISC PRN ×6 (00:09→12:05)
[2017-08-03] MEDS: D5NS 1,000 ML IV SCH ×2 (00:43→14:06)
[2017-08-03] MEDS: Heparin 5000 units/ml inj SUBQ SCH ×3 (05:57→22:04)
--- NOTE | 2017-08-03 07:12 | General Progress Note ---
Assessment/Plan Problem List: (1) Cellulitis of abdominal wall ICD Codes: L03.311 - Cellulitis of abdominal wall SNOMED: 75140250 (2) Acute respiratory failure ICD Codes: J96.00 - Acute respiratory failure, unspecified whether with hypoxia or hypercapnia SNOMED: 94002193 (3) New onset type 1 diabetes mellitus, uncontrolled ICD Codes: E10.65 - Type 1 diabetes mellitus with hyperglycemia SNOMED: 534614993 (4) Necrotizing fasciitis ICD Codes: M72.6 - Necrotizing fasciitis SNOMED: 20476882 (5) DKA (diabetic ketoacidoses) ICD Codes: E13.10 - Other specified diabetes mellitus with ketoacidosis without coma SNOMED: 96782654, [id number] Assessment/Plan remained intubated in ICU DKA resolved but requires high rate insulin gtt in order to control hyperglycemia continue insulin gtt BG monitoring to every 2 hours Subjective ROS Limited/Unobtainable: Yes Allergies: Coded Allergies: PENICILLINS (Verified Allergy, Unknown, 07/30/17) According to mother, the patient is allergic to Penicillins Subjective intubated in icu Objective Last 24 Hour Vital Signs Date Time Temp Pulse Resp B/P (MAP) Pulse Ox O2 Delivery O2 Flow Rate FiO2 08/03/17 06:30 120 20 175/85 98 Mechanical Ventilator 25 08/03/17 06:30 32 08/03/17 06:15 33 08/03/17 06:00 93 20 188/62 98 Mechanical Ventilator 25 08/03/17 06:00 33 08/03/17 05:30 93 20 136/62 98 Mechanical Ventilator 25 08/03/17 05:30 30 08/03/17 05:20 81 30 25 08/03/17 05:00 27 08/03/17 05:00 83 20 136/64 98 Mechanical Ventilator 25 08/03/17 04:30 85 20 130/53 98 Mechanical Ventilator 25 08/03/17 04:30 32 08/03/17 04:00 98.4 85 20 141/55 98 Mechanical Ventilator 25 98.4 08/03/17 04:00 29 08/03/17 04:00 25 08/03/17 04:00 82 08/03/17 03:30 85 20 141/64 98 Mechanical Ventilator 25 08/03/17 03:00 24 08/03/17 03:00 82 20 144/70 98 Mechanical Ventilator 25 08/03/17 02:44 77 28 25 08/03/17 02:30 78 20 109/40 98 Mechanical Ventilator 25 08/03/17 02:00 17 08/03/17 02:00 114/48 08/03/17 02:00 76 28 106/36 100 Mechanical Ventilator 25 08/03/17 01:30 78 28 91/41 100 Mechanical Ventilator 25 08/03/17 01:00 82 28 104/45 100 Mechanical Ventilator 25 08/03/17 01:00 32 08/03/17 01:00 136/60 08/03/17 00:53 83 30 25 08/03/17 00:44 124/46 08/03/17 00:30 82 28 131/53 100 Mechanical Ventilator 25 08/03/17 00:00 25 08/03/17 00:00 23 08/03/17 00:00 119/48 08/03/17 00:00 98.4 84 28 134/57 100 Mechanical Ventilator 25 98.4 08/03/17 00:00 86 08/02/17 23:30 83 28 129/52 100 Mechanical Ventilator 25 08/02/17 23:00 83 28 121/56 100 Mechanical Ventilator 25 08/02/17 23:00 29 08/02/17 23:00 121/56 08/02/17 22:39 83 32 25 08/02/17 22:30 82 28 137/61 100 Mechanical Ventilator 25 08/02/17 22:00 79 18 109/51 100 Mechanical Ventilator 25 08/02/17 22:00 24 08/02/17 22:00 126/49 08/02/17 21:30 81 19 125/51 100 Mechanical Ventilator 25 08/02/17 21:13 82 33 25 08/02/17 21:00 81 19 125/51 100 Mechanical Ventilator 25 08/02/17 21:00 82 08/02/17 21:00 27 08/02/17 21:00 124/52 08/02/17 20:30 99.3 81 26 116/16 100 Mechanical Ventilator 25 99.3 08/02/17 20:00 30 08/02/17 20:00 116/44 08/02/17 20:00 25 08/02/17 20:00 82 28 130/52 100 Mechanical Ventilator 25 08/02/17 19:30 86 28 124/52 100 Mechanical Ventilator 25 08/02/17 19:11 85 34 25 08/02/17 19:00 29 08/02/17 19:00 127/50 08/02/17 19:00 83 29 124/52 100 Mechanical Ventilator 25 08/02/17 18:30 82 21 116/53 100 Mechanical Ventilator 25 08/02/17 18:00 99.6 84 21 137/61 100 Mechanical Ventilator 25 99.6 08/02/17 18:00 30 08/02/17 18:00 120/55 08/02/17 17:30 80 21 93/43 100 Mechanical Ventilator 25 08/02/17 17:30 26 08/02/17 17:00 81 22 99/44 100 Mechanical Ventilator 25 08/02/17 17:00 22 08/02/17 17:00 99/44 08/02/17 16:30 82 28 25 08/02/17 16:30 84 29 111/51 100 Mechanical Ventilator 25 08/02/17 16:00 25 08/02/17 16:00 82 08/02/17 16:00 100.0 81 28 138/69 100 Mechanical Ventilator 25 100.0 08/02/17 16:00 28 08/02/17 15:30 81 28 103/46 100 Mechanical Ventilator 25 08/02/17 15:04 84 30 25 08/02/17 15:00 85 28 100/44 100 Mechanical Ventilator 25 08/02/17 15:00 28 08/02/17 15:00 106/48 08/02/17 14:30 84 22 107/48 100 Mechanical Ventilator 25 08/02/17 14:00 84 14 119/47 100 Mechanical Ventilator 25 08/02/17 14:00 21 08/02/17 14:00 119/47 08/02/17 13:30 84 25 119/48 100 Mechanical Ventilator 25 08/02/17 13:00 24 08/02/17 13:00 111/43 08/02/17 13:00 84 31 111/43 100 Mechanical Ventilator 25 08/02/17 12:38 84 35 25 08/02/17 12:30 85 31 121/42 100 Mechanical Ventilator 25 08/02/17 12:00 99.6 86 32 88/42 100 Mechanical Ventilator 25 99.6 08/02/17 12:00 87 08/02/17 12:00 25 08/02/17 12:00 24 08/02/17 11:30 93 33 76/29 100 Mechanical Ventilator 25 08/02/17 11:20 97 45 25 08/02/17 11:00 32 08/02/17 11:00 134/47 08/02/17 11:00 96 32 134/47 100 Mechanical Ventilator 25 08/02/17 10:30 96 31 151/55 100 Mechanical Ventilator 25 08/02/17 10:00 99 33 135/57 99 Mechanical Ventilator 25 08/02/17 10:00 33 08/02/17 10:00 135/57 08/02/17 09:30 98 31 124/43 99 Mechanical Ventilator 25 08/02/17 09:29 99 31 25 08/02/17 09:00 101 31 115/52 99 Mechanical Ventilator 25 08/02/17 09:00 31 08/02/17 09:00 115/52 08/02/17 08:30 101 31 134/57 99 Mechanical Ventilator 25 08/02/17 08:00 101 08/02/17 08:00 25 08/02/17 08:00 32 08/02/17 08:00 124/61 08/02/17 08:00 98.9 103 32 124/61 99 Mechanical Ventilator 25 98.9 08/02/17 07:43 30 08/02/17 07:30 105 29 116/50 99 Mechanical Ventilator 25 08/02/17 07:27 103 32 25 Intake and Output 08/02/17 08/03/17 19:00 07:00 Intake Total 4746.041 ml 4407.99 ml Output Total 103 ml 255 ml Balance 4643.041 ml 4152.99 ml Intake Oral 0 ml 0 ml IV Total 4746.041 ml 4407.99 ml Output Urine Total 103 ml 255 ml Laboratory Tests 08/02/17 09:20: Arterial Blood pH 7.396, Arterial Blood Partial Pressure CO2 36.0, Arterial Blood Partial Pressure O2 130.6H, Arterial Blood HCO3 21.6L, Arterial Blood Oxygen Saturation 98.3H, Arterial Blood Base Excess -2.9, Ravi Test Positive Height (Feet): 5 Height (Inches): 5.00 Weight (Pounds): 314 General Appearance: severe distress EENT: other - ETT Neck: normal alignment Cardiovascular: normal peripheral pulses Respiratory/Chest: decreased breath sounds Abdomen: normal bowel sounds Edema: 1+ Arm (L), 1+ Arm (R), 1+ Leg (L), 1+ Leg (R), 1+ Pedal (L), 1+ Pedal ( R), 1+ Generalized Objective Current Medications Medications (Trade) Dose Ordered Sig/Tommy Route PRN Reason Start Time Stop Time Status Last Admin Dose Admin Acetaminophen (Tylenol) 650 mg EVERY 6 HOURS PRN RECTAL Mild Pain (Pain Scale 1-3) 07/30/17 17:54 08/29/17 17:53 08/01/17 14:43 Chlorhexidine Gluconate (Idalia-Hex 2%) 1 applic DAILY@2000 TOPIC 07/30/17 20:00 08/29/17 19:59 08/02/17 20:21 Dextrose (Dextrose 50%) 25 ml PRN PRN IV HYPOGLYCEMIA 07/30/17 10:30 08/29/17 10:29 Dextrose (Dextrose 50%) 50 ml PRN PRN IV HYPOGLYCEMIA 07/30/17 11:00 08/29/17 10:59 Dextrose/Sodium Chloride 1,000 ml @ 75 mls/hr [id number] IV 08/01/17 09:00 08/31/17 08:59 08/03/17 00:43 Fentanyl Citrate 1000 mcg/Sodium Chloride 100 ml @ 0 mls/hr Q24H IV 07/31/17 18:30 08/07/17 18:29 08/02/17 07:43 Heparin Sodium (Porcine) (Heparin 5000 units/ml) 5,000 units EVERY 8 HOURS SUBQ 07/29/17 22:00 08/28/17 21:59 08/03/17 05:57 Insulin Human Regular (NovoLIN R) 5 units PRN PRN IV BS 200-299 07/30/17 11:00 08/29/17 10:59 07/31/17 11:58 Insulin Human Regular (NovoLIN R) 10 units PRN PRN IV BS=>300 07/30/17 11:00 08/29/17 10:59 Insulin Human Regular 100 units/ Sodium Chloride 101 ml @ 0 mls/hr Q24H IV 07/30/17 14:00 08/29/17 13:59 08/02/17 16:58 Linezolid 300 ml @ 300 mls/hr Q12HR IVPB 08/02/17 13:30 08/09/17 13:29 08/02/17 20:51 Meropenem 1 gm/ Sodium Chloride 110 ml @ 220 mls/hr Q12HR IVPB 08/02/17 14:00 08/07/17 13:59 08/02/17 22:36 Miscellaneous Medication (Insulin Rate Change) 1 ea PRN PRN MISC Hyperglycemia 07/30/17 11:00 08/29/17 10:59 08/03/17 04:04 Norepinephrine Bitartrate 8 mg/ Dextrose 250 ml @ 0 mls/hr Q24H IV 07/30/17 08:00 08/29/17 07:59 08/03/17 00:44 Pantoprazole (Protonix) 40 mg DAILY IVP 07/30/17 09:00 08/29/17 08:59 08/02/17 09:22 Silver Sulfadiazine (Silvadene Cream 25gm) 1 applic DAILY TOPIC 08/01/17 10:30 08/31/17 10:29 08/02/17 09:22 Item Value Date Time Bedside Blood Glucose 116 mg/dl 08/03/17 0558 Bedside Blood Glucose 113 mg/dl 08/03/17 0202 Bedside Blood Glucose 147 mg/dl H 08/02/17 2211 Bedside Blood Glucose 134 mg/dl H 08/02/17 1826 Bedside Blood Glucose 116 mg/dl 08/02/17 1423 Bedside Blood Glucose 138 mg/dl H 08/02/17 1016 Bedside Blood Glucose 147 mg/dl H 08/02/17 0600 SAQIB TOM August 03, 2017 07:12
[2017-08-03] MEDS: Pantoprazole Inj IVP SCH (08:27)
[2017-08-03] MEDS: Meropenem 1 GM in NS 110 ML IVPB SCH ×2 (08:28→21:13)
--- NOTE | 2017-08-03 08:33 | Nephrology Progress Note ---
Assessment/Plan Assessment/Plan 1. SCARLET- AM labs pending. Will determine on HD once BMP results return - multifact ATN (sepsis induced inflammotory cytokine prox tub damage/ ishchemic ATN hypotension/vol dep) 2. DKA/Met Acidosis- resolved post HD. Off IV pressor - due hypoperfusion - am labs pending 3. Septic Shock- etiology likely from abd cellulitis. Abx mgmt per ID - Gen Surg mgmt of abdomen paniculitis. Slowly improving. Poss labial abscess. 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 Hypotension- Maintain MAP >65 mmHg with prn IV pressor 5. Resp FL- intubated on ventilator per PCC management 6. Hypok+/Ca/Phos- replace prn. AM labs pending Subjective Date patient seen: August 03, 2017 Time patient seen: 08:25 ROS Limited/Unobtainable: Yes Allergies: Coded Allergies: PENICILLINS (Verified Allergy, Unknown, 07/30/17) According to mother, the patient is allergic to Penicillins Subjective Patient remains intubated and slightly agitated on the ventilator this am Objective Last 24 Hour Vital Signs Date Time Temp Pulse Resp B/P (MAP) Pulse Ox O2 Delivery O2 Flow Rate FiO2 08/03/17 08:00 45 08/03/17 08:00 33 08/03/17 07:17 113 37 45 08/03/17 07:00 112 20 117/59 88 Mechanical Ventilator 25 08/03/17 06:30 120 20 175/85 98 Mechanical Ventilator 25 08/03/17 06:30 32 08/03/17 06:15 33 08/03/17 06:00 93 20 188/62 98 Mechanical Ventilator 25 08/03/17 06:00 33 08/03/17 05:30 93 20 136/62 98 Mechanical Ventilator 25 08/03/17 05:30 30 08/03/17 05:20 81 30 25 08/03/17 05:00 27 08/03/17 05:00 83 20 136/64 98 Mechanical Ventilator 25 08/03/17 04:30 85 20 130/53 98 Mechanical Ventilator 25 08/03/17 04:30 32 08/03/17 04:00 98.4 85 20 141/55 98 Mechanical Ventilator 25 98.4 08/03/17 04:00 29 08/03/17 04:00 25 08/03/17 04:00 82 08/03/17 03:30 85 20 141/64 98 Mechanical Ventilator 25 08/03/17 03:00 24 08/03/17 03:00 82 20 144/70 98 Mechanical Ventilator 25 08/03/17 02:44 77 28 25 08/03/17 02:30 78 20 109/40 98 Mechanical Ventilator 25 08/03/17 02:00 17 08/03/17 02:00 114/48 08/03/17 02:00 76 28 106/36 100 Mechanical Ventilator 25 08/03/17 01:30 78 28 91/41 100 Mechanical Ventilator 25 08/03/17 01:00 82 28 104/45 100 Mechanical Ventilator 25 08/03/17 01:00 32 08/03/17 01:00 136/60 08/03/17 00:53 83 30 25 08/03/17 00:44 124/46 08/03/17 00:30 82 28 131/53 100 Mechanical Ventilator 25 08/03/17 00:00 25 08/03/17 00:00 23 08/03/17 00:00 119/48 08/03/17 00:00 98.4 84 28 134/57 100 Mechanical Ventilator 25 98.4 08/03/17 00:00 86 08/02/17 23:30 83 28 129/52 100 Mechanical Ventilator 25 08/02/17 23:00 83 28 121/56 100 Mechanical Ventilator 25 08/02/17 23:00 29 08/02/17 23:00 121/56 08/02/17 22:39 83 32 25 08/02/17 22:30 82 28 137/61 100 Mechanical Ventilator 25 08/02/17 22:00 79 18 109/51 100 Mechanical Ventilator 25 08/02/17 22:00 24 08/02/17 22:00 126/49 08/02/17 21:30 81 19 125/51 100 Mechanical Ventilator 25 08/02/17 21:13 82 33 25 08/02/17 21:00 81 19 125/51 100 Mechanical Ventilator 25 08/02/17 21:00 82 08/02/17 21:00 27 08/02/17 21:00 124/52 08/02/17 20:30 99.3 81 26 116/16 100 Mechanical Ventilator 25 99.3 08/02/17 20:00 30 08/02/17 20:00 116/44 08/02/17 20:00 25 5/8/18 20:00 82 28 130/52 100 Mechanical Ventilator 25 08/02/17 19:30 86 28 124/52 100 Mechanical Ventilator 25 08/02/17 19:11 85 34 25 08/02/17 19:00 29 08/02/17 19:00 127/50 08/02/17 19:00 83 29 124/52 100 Mechanical Ventilator 25 08/02/17 18:30 82 21 116/53 100 Mechanical Ventilator 25 08/02/17 18:00 99.6 84 21 137/61 100 Mechanical Ventilator 25 99.6 08/02/17 18:00 30 08/02/17 18:00 120/55 08/02/17 17:30 80 21 93/43 100 Mechanical Ventilator 25 08/02/17 17:30 26 08/02/17 17:00 81 22 99/44 100 Mechanical Ventilator 25 08/02/17 17:00 22 08/02/17 17:00 99/44 08/02/17 16:30 82 28 25 08/02/17 16:30 84 29 111/51 100 Mechanical Ventilator 25 08/02/17 16:00 25 08/02/17 16:00 82 08/02/17 16:00 100.0 81 28 138/69 100 Mechanical Ventilator 25 100.0 08/02/17 16:00 28 08/02/17 15:30 81 28 103/46 100 Mechanical Ventilator 25 08/02/17 15:04 84 30 25 08/02/17 15:00 85 28 100/44 100 Mechanical Ventilator 25 08/02/17 15:00 28 08/02/17 15:00 106/48 08/02/17 14:30 84 22 107/48 100 Mechanical Ventilator 25 08/02/17 14:00 84 14 119/47 100 Mechanical Ventilator 25 08/02/17 14:00 21 08/02/17 14:00 119/47 08/02/17 13:30 84 25 119/48 100 Mechanical Ventilator 25 08/02/17 13:00 24 08/02/17 13:00 111/43 08/02/17 13:00 84 31 111/43 100 Mechanical Ventilator 25 08/02/17 12:38 84 35 25 08/02/17 12:30 85 31 121/42 100 Mechanical Ventilator 25 08/02/17 12:00 99.6 86 32 88/42 100 Mechanical Ventilator 25 99.6 08/02/17 12:00 87 08/02/17 12:00 25 08/02/17 12:00 24 08/02/17 11:30 93 33 76/29 100 Mechanical Ventilator 25 08/02/17 11:20 97 45 25 08/02/17 11:00 32 08/02/17 11:00 134/47 08/02/17 11:00 96 32 134/47 100 Mechanical Ventilator 25 08/02/17 10:30 96 31 151/55 100 Mechanical Ventilator 25 08/02/17 10:00 99 33 135/57 99 Mechanical Ventilator 25 08/02/17 10:00 33 08/02/17 10:00 135/57 08/02/17 09:30 98 31 124/43 99 Mechanical Ventilator 25 08/02/17 09:29 99 31 25 08/02/17 09:00 101 31 115/52 99 Mechanical Ventilator 25 08/02/17 09:00 31 08/02/17 09:00 115/52 08/02/17 08:30 101 31 134/57 99 Mechanical Ventilator 25 Intake and Output 08/02/17 08/03/17 19:00 07:00 Intake Total 4746.041 ml 4407.99 ml Output Total 103 ml 255 ml Balance 4643.041 ml 4152.99 ml Intake Oral 0 ml 0 ml IV Total 4746.041 ml 4407.99 ml Output Urine Total 103 ml 255 ml Laboratory Tests 08/02/17 09:20: Arterial Blood pH 7.396, Arterial Blood Partial Pressure CO2 36.0, Arterial Blood Partial Pressure O2 130.6H, Arterial Blood HCO3 21.6L, Arterial Blood Oxygen Saturation 98.3H, Arterial Blood Base Excess -2.9, Ravi Test Positive Height (Feet): 5 Height (Inches): 5.00 Weight (Pounds): 314 General Appearance: mild distress EENT: PERRL/EOMI, normal ENT inspection Neck: non-tender, normal alignment Cardiovascular: normal rate, regular rhythm Respiratory/Chest: chest wall non-tender, lungs clear Abdomen: other - erythema LLQ Edema: 1+ Leg (R), 1+ Pedal (L) Carlton Guzmán M.D. August 03, 2017 08:33
[2017-08-03 10:42] LABS: HEMATOCRIT 24.2 % (37.0-47.0); HEMOGLOBIN 7.6 G/DL (12.0-16.0); MEAN CORPUSCULAR VOLUME 67 FL (80-99); PLATELET COUNT 252 K/UL (150-450); WHITE BLOOD COUNT 20.8 K/UL (4.8-10.8)
[2017-08-03 10:59] LABS: ANION GAP 13 mmol/L (5-15); BLOOD UREA NITROGEN 54 mg/dL (7-18); CALCIUM 8.9 MG/DL (8.5-10.1); CARBON DIOXIDE 22 MMOL/L (21-32); CHLORIDE 106 MMOL/L (98-107); CREATININE 5.4 MG/DL (0.55-1.30); POTASSIUM 3.4 MMOL/L (3.5-5.1); SODIUM 141 MMOL/L (136-145)
--- NOTE | 2017-08-03 11:49 | General Surgery Progress Note ---
General Surgery-Progress Note Subjective Symptoms: BM Objective Last 24 Hour Vital Signs Date Time Temp Pulse Resp B/P (MAP) Pulse Ox O2 Delivery O2 Flow Rate FiO2 08/03/17 11:00 31 08/03/17 10:34 83 29 35 08/03/17 10:30 83 28 90/45 100 Mechanical Ventilator 45 08/03/17 10:23 35 08/03/17 10:00 30 08/03/17 10:00 98 29 103/57 100 Mechanical Ventilator 45 08/03/17 09:30 94 30 115/52 100 Mechanical Ventilator 45 08/03/17 09:28 95 30 35 08/03/17 09:12 26 08/03/17 09:00 29 08/03/17 09:00 102 20 93/50 100 Mechanical Ventilator 45 08/03/17 08:30 112 20 88/48 97 Mechanical Ventilator 45 08/03/17 08:00 45 08/03/17 08:00 107 08/03/17 08:00 33 08/03/17 08:00 98.7 105 20 95/49 95 Mechanical Ventilator 45 98.7 08/03/17 07:30 107 32 104/55 95 Mechanical Ventilator 45 08/03/17 07:17 113 37 45 08/03/17 07:00 112 20 117/59 88 Mechanical Ventilator 25 08/03/17 07:00 30 08/03/17 06:30 120 20 175/85 98 Mechanical Ventilator 25 08/03/17 06:30 32 08/03/17 06:15 33 08/03/17 06:00 93 20 188/62 98 Mechanical Ventilator 25 08/03/17 06:00 33 08/03/17 05:30 93 20 136/62 98 Mechanical Ventilator 25 08/03/17 05:30 30 08/03/17 05:20 81 30 25 08/03/17 05:00 27 08/03/17 05:00 83 20 136/64 98 Mechanical Ventilator 25 08/03/17 04:30 85 20 130/53 98 Mechanical Ventilator 25 08/03/17 04:30 32 08/03/17 04:00 98.4 85 20 141/55 98 Mechanical Ventilator 25 98.4 08/03/17 04:00 29 08/03/17 04:00 25 08/03/17 04:00 82 08/03/17 03:30 85 20 141/64 98 Mechanical Ventilator 25 08/03/17 03:00 24 08/03/17 03:00 82 20 144/70 98 Mechanical Ventilator 25 08/03/17 02:44 77 28 25 08/03/17 02:30 78 20 109/40 98 Mechanical Ventilator 25 08/03/17 02:00 17 08/03/17 02:00 114/48 08/03/17 02:00 76 28 106/36 100 Mechanical Ventilator 25 08/03/17 01:30 78 28 91/41 100 Mechanical Ventilator 25 08/03/17 01:00 82 28 104/45 100 Mechanical Ventilator 25 08/03/17 01:00 32 08/03/17 01:00 136/60 08/03/17 00:53 83 30 25 08/03/17 00:44 124/46 08/03/17 00:30 82 28 131/53 100 Mechanical Ventilator 25 08/03/17 00:00 25 08/03/17 00:00 23 08/03/17 00:00 119/48 08/03/17 00:00 98.4 84 28 134/57 100 Mechanical Ventilator 25 98.4 08/03/17 00:00 86 08/02/17 23:30 83 28 129/52 100 Mechanical Ventilator 25 08/02/17 23:00 83 28 121/56 100 Mechanical Ventilator 25 08/02/17 23:00 29 08/02/17 23:00 121/56 08/02/17 22:39 83 32 25 08/02/17 22:30 82 28 137/61 100 Mechanical Ventilator 25 08/02/17 22:00 79 18 109/51 100 Mechanical Ventilator 25 08/02/17 22:00 24 08/02/17 22:00 126/49 08/02/17 21:30 81 19 125/51 100 Mechanical Ventilator 25 08/02/17 21:13 82 33 25 08/02/17 21:00 81 19 125/51 100 Mechanical Ventilator 25 08/02/17 21:00 82 08/02/17 21:00 27 08/02/17 21:00 124/52 08/02/17 20:30 99.3 81 26 116/16 100 Mechanical Ventilator 25 99.3 08/02/17 20:00 30 08/02/17 20:00 116/44 08/02/17 20:00 25 08/02/17 20:00 82 28 130/52 100 Mechanical Ventilator 25 08/02/17 19:30 86 28 124/52 100 Mechanical Ventilator 25 08/02/17 19:11 85 34 25 08/02/17 19:00 29 08/02/17 19:00 127/50 08/02/17 19:00 83 29 124/52 100 Mechanical Ventilator 25 08/02/17 18:30 82 21 116/53 100 Mechanical Ventilator 25 08/02/17 18:00 99.6 84 21 137/61 100 Mechanical Ventilator 25 99.6 08/02/17 18:00 30 08/02/17 18:00 120/55 08/02/17 17:30 80 21 93/43 100 Mechanical Ventilator 25 08/02/17 17:30 26 08/02/17 17:00 81 22 99/44 100 Mechanical Ventilator 25 08/02/17 17:00 22 08/02/17 17:00 99/44 08/02/17 16:30 82 28 25 08/02/17 16:30 84 29 111/51 100 Mechanical Ventilator 25 08/02/17 16:00 25 08/02/17 16:00 82 08/02/17 16:00 100.0 81 28 138/69 100 Mechanical Ventilator 25 100.0 08/02/17 16:00 28 08/02/17 15:30 81 28 103/46 100 Mechanical Ventilator 25 08/02/17 15:04 84 30 25 08/02/17 15:00 85 28 100/44 100 Mechanical Ventilator 25 08/02/17 15:00 28 08/02/17 15:00 106/48 08/02/17 14:30 84 22 107/48 100 Mechanical Ventilator 25 08/02/17 14:00 84 14 119/47 100 Mechanical Ventilator 25 08/02/17 14:00 21 08/02/17 14:00 119/47 08/02/17 13:30 84 25 119/48 100 Mechanical Ventilator 25 08/02/17 13:00 24 08/02/17 13:00 111/43 08/02/17 13:00 84 31 111/43 100 Mechanical Ventilator 25 08/02/17 12:38 84 35 25 08/02/17 12:30 85 31 121/42 100 Mechanical Ventilator 25 08/02/17 12:00 99.6 86 32 88/42 100 Mechanical Ventilator 25 99.6 08/02/17 12:00 87 08/02/17 12:00 25 08/02/17 12:00 24 I&O Intake and Output 08/02/17 08/03/17 19:00 07:00 Intake Total 4746.041 ml 4407.99 ml Output Total 103 ml 255 ml Balance 4643.041 ml 4152.99 ml Intake Oral 0 ml 0 ml IV Total 4746.041 ml 4407.99 ml Output Urine Total 103 ml 255 ml Respiratory: clear Abdomen: other - erythema and induration of lower abdomen has moved towards let hip Laboratory Tests Test 08/03/17 08:20 08/03/17 10:20 Sodium Level 141 MMOL/L (136-145) Potassium Level 3.4 MMOL/L (3.5-5.1) L Chloride Level 106 MMOL/L (98-107) Carbon Dioxide Level 22 MMOL/L (21-32) Anion Gap 13 mmol/L (5-15) Blood Urea Nitrogen 54 mg/dL (7-18) H Creatinine 5.4 MG/DL (0.55-1.30) H Estimat Glomerular Filtration Rate 8.5 mL/min (>60) Glucose Level 147 MG/DL (74-106) H Calcium Level 8.9 MG/DL (8.5-10.1) Phosphorus Level 4.0 MG/DL (2.5-4.9) Magnesium Level 2.2 MG/DL (1.8-2.4) White Blood Count 20.8 K/UL (4.8-10.8) H Red Blood Count 3.60 M/UL (4.20-5.40) L Hemoglobin 7.6 G/DL (12.0-16.0) L Hematocrit 24.2 % (37.0-47.0) L Mean Corpuscular Volume 67 FL (80-99) L Mean Corpuscular Hemoglobin 21.2 PG (27.0-31.0) L Mean Corpuscular Hemoglobin Concent 31.6 G/DL (32.0-36.0) L Red Cell Distribution Width 15.0 % (11.6-14.8) H Platelet Count 252 K/UL (150-450) Mean Platelet Volume 5.6 FL (6.5-10.1) L Neutrophils (%) (Auto) % (45.0-75.0) Lymphocytes (%) (Auto) % (20.0-45.0) Monocytes (%) (Auto) % (1.0-10.0) Eosinophils (%) (Auto) % (0.0-3.0) Basophils (%) (Auto) % (0.0-2.0) Differential Total Cells Counted 100 Neutrophils % (Manual) 84 % (45-75) H Lymphocytes % (Manual) 8 % (20-45) L Monocytes % (Manual) 4 % (1-10) Eosinophils % (Manual) 0 % (0-3) Basophils % (Manual) 0 % (0-2) Band Neutrophils 4 % (0-8) Platelet Estimate Adequate Platelet Morphology Normal Hypochromasia 1+ Microcytosis 1+ Assessment Additional Comments cellulitis Plan Additional Comments induration of volva was aspirated no pus SALBADOR STEWART August 03, 2017 11:49
--- NOTE | 2017-08-03 14:42 | Infectious Diseases Prog Note ---
Assessment/Plan Problems: (1) Cellulitis of abdominal wall Assessment & Plan: skin US showed no abscess but phlegmon , her redness is fading away , rubber press tender mainly in the left lower abdomen , groin and labium , will continue meropenem and zyvox empiric coverage , surgery attempted to aspirate the left labium phlegmon but there was no pus to drain , await repeated blood culture (2) UTI (urinary tract infection) Assessment & Plan: culture grew strep agalactiae and staph aureua , she is already on meropenem and zyvox (3) Pharyngitis, acute Assessment & Plan: already on zosyn (4) Septic shock Assessment & Plan: due to the above , off pressor today , blood culture is still negative , with leukocytosis , now on meropenem and zyvox , await repeated blood culture (5) Acute respiratory failure Assessment & Plan: due to the above, intubated in ED started on mechanical ventilation, monitor ABG and CXR, pulmonary is following (6) SCARLET (acute kidney injury) Assessment & Plan: now with ESRD , due to the above, started on HD , nephrology is following, monitor UOP (7) DKA (diabetic ketoacidoses) Assessment & Plan: due to poorly controlled diabetes and sepsis, S/P insulin drip in the ICU , continue close monitor of her blood glucose to keep between 80 -120 (8) Leg wound, left Assessment & Plan: with infection due to staph aureus and klebsiella oxytoca, already on meropenem and zyvox , continue local wound care as per hospital protocol Subjective ROS Limited/Unobtainable: Yes Allergies: Coded Allergies: PENICILLINS (Verified Allergy, Unknown, 07/30/17) According to mother, the patient is allergic to Penicillins Subjective she was still intubated on mechanical ventilation , responds to verbal commands well and to pain stimuli , off pressor and insulin drip no fever today . the redness on the lower abdomen is fading away and shifting to the left lower side of her abdomen , less on the inner thighs, left labium is hard and infiltrated , with left groin lymphadenopathy , small skin breaks with blisters Objective Vital Signs Last 24 Hour Vital Signs Date Time Temp Pulse Resp B/P (MAP) Pulse Ox O2 Delivery O2 Flow Rate FiO2 08/03/17 13:30 88 26 97/45 96 Mechanical Ventilator 35 5/9/18 13:00 80 26 94/45 96 Mechanical Ventilator 35 5/9/18 13:00 27 5/9/18 12:44 83 27 35 5/9/18 12:30 83 26 99/50 96 Mechanical Ventilator 35 5/9/18 12:00 99.1 76 28 92/48 100 Mechanical Ventilator 35 99.1 5/9/18 12:00 77 5/9/18 11:30 76 28 100/59 100 Mechanical Ventilator 35 5/9/18 11:00 77 28 103/53 100 Mechanical Ventilator 35 5/9/18 11:00 31 5/9/18 10:34 83 29 35 5/9/18 10:30 83 28 90/45 100 Mechanical Ventilator 35 5/9/18 10:23 35 5/9/18 10:00 30 5/9/18 10:00 98 29 103/57 100 Mechanical Ventilator 45 5/9/18 09:30 94 30 115/52 100 Mechanical Ventilator 45 5/9/18 09:28 95 30 35 5/9/18 09:12 26 5/9/18 09:00 29 5/9/18 09:00 102 20 93/50 100 Mechanical Ventilator 45 5/9/18 08:30 112 20 90/48 97 Mechanical Ventilator 45 5/9/18 08:00 45 5/9/18 08:00 107 5/9/18 08:00 33 5/9/18 08:00 98.7 105 20 95/49 95 Mechanical Ventilator 45 98.7 5/9/18 07:30 107 32 104/55 95 Mechanical Ventilator 45 5/9/18 07:17 113 37 45 5/9/18 07:00 112 20 117/59 88 Mechanical Ventilator 25 5/9/18 07:00 30 5/9/18 06:30 120 20 175/85 98 Mechanical Ventilator 25 5/9/18 06:30 32 5/9/18 06:15 33 5/9/18 06:00 93 20 188/62 98 Mechanical Ventilator 25 5/9/18 06:00 33 5/9/18 05:30 93 20 136/62 98 Mechanical Ventilator 25 5/9/18 05:30 30 5/9/18 05:20 81 30 25 5/9/18 05:00 27 5/9/18 05:00 83 20 136/64 98 Mechanical Ventilator 25 5/9/18 04:30 85 20 130/53 98 Mechanical Ventilator 25 08/03/17 04:30 32 08/03/17 04:00 98.4 85 20 141/55 98 Mechanical Ventilator 25 98.4 08/03/17 04:00 29 08/03/17 04:00 25 08/03/17 04:00 82 08/03/17 03:30 85 20 141/64 98 Mechanical Ventilator 25 08/03/17 03:00 24 08/03/17 03:00 82 20 144/70 98 Mechanical Ventilator 25 08/03/17 02:44 77 28 25 08/03/17 02:30 78 20 109/40 98 Mechanical Ventilator 25 08/03/17 02:00 17 08/03/17 02:00 114/48 08/03/17 02:00 76 28 106/36 100 Mechanical Ventilator 25 08/03/17 01:30 78 28 91/41 100 Mechanical Ventilator 25 08/03/17 01:00 82 28 104/45 100 Mechanical Ventilator 25 08/03/17 01:00 32 08/03/17 01:00 136/60 08/03/17 00:53 83 30 25 08/03/17 00:44 124/46 08/03/17 00:30 82 28 131/53 100 Mechanical Ventilator 25 08/03/17 00:00 25 08/03/17 00:00 23 08/03/17 00:00 119/48 08/03/17 00:00 98.4 84 28 134/57 100 Mechanical Ventilator 25 98.4 08/03/17 00:00 86 08/02/17 23:30 83 28 129/52 100 Mechanical Ventilator 25 08/02/17 23:00 83 28 121/56 100 Mechanical Ventilator 25 08/02/17 23:00 29 08/02/17 23:00 121/56 08/02/17 22:39 83 32 25 08/02/17 22:30 82 28 137/61 100 Mechanical Ventilator 25 08/02/17 22:00 79 18 109/51 100 Mechanical Ventilator 25 08/02/17 22:00 24 08/02/17 22:00 126/49 08/02/17 21:30 81 19 125/51 100 Mechanical Ventilator 25 08/02/17 21:13 82 33 25 08/02/17 21:00 81 19 125/51 100 Mechanical Ventilator 25 08/02/17 21:00 82 08/02/17 21:00 27 08/02/17 21:00 124/52 08/02/17 20:30 99.3 81 26 116/16 100 Mechanical Ventilator 25 99.3 08/02/17 20:00 30 08/02/17 20:00 116/44 08/02/17 20:00 25 08/02/17 20:00 82 28 130/52 100 Mechanical Ventilator 25 08/02/17 19:30 86 28 124/52 100 Mechanical Ventilator 25 08/02/17 19:11 85 34 25 08/02/17 19:00 29 08/02/17 19:00 127/50 08/02/17 19:00 83 29 124/52 100 Mechanical Ventilator 25 08/02/17 18:30 82 21 116/53 100 Mechanical Ventilator 25 08/02/17 18:00 99.6 84 21 137/61 100 Mechanical Ventilator 25 99.6 08/02/17 18:00 30 08/02/17 18:00 120/55 08/02/17 17:30 80 21 93/43 100 Mechanical Ventilator 25 08/02/17 17:30 26 08/02/17 17:00 81 22 99/44 100 Mechanical Ventilator 25 08/02/17 17:00 22 08/02/17 17:00 99/44 08/02/17 16:30 82 28 25 08/02/17 16:30 84 29 111/51 100 Mechanical Ventilator 25 08/02/17 16:00 25 08/02/17 16:00 82 08/02/17 16:00 100.0 81 28 138/69 100 Mechanical Ventilator 25 100.0 08/02/17 16:00 28 08/02/17 15:30 81 28 103/46 100 Mechanical Ventilator 25 08/02/17 15:04 84 30 25 08/02/17 15:00 85 28 100/44 100 Mechanical Ventilator 25 08/02/17 15:00 28 08/02/17 15:00 106/48 08/02/17 14:30 84 22 107/48 100 Mechanical Ventilator 25 Height (Feet): 5 Height (Inches): 5.00 Weight (Pounds): 314 General Appearance: WD/WN, no acute distress HEENT: normocephalic, atraumatic, anicteric, mucous membranes moist, PERRL Respiratory/Chest: chest wall non-tender, normal breath sounds, no respiratory distress, no accessory muscle use, decreased breath sounds Cardiovascular: normal peripheral pulses, normal rate, regular rhythm, no gallop/murmur, no JVD Abdomen: normal bowel sounds, no organomegaly, non distended, no mass, no scars , hypoactive bowel sounds, tender, other - left lower skin redness with thickining of the skin on the left lower aspect of the abdominal wall . no warmth , small skin breaks with blisters Genitourinary: normal external genitalia, other - left labium infiltrated Skin: no rash, no lesions, no ulcers Neurologic/Psychiatric: alert, responsive Lymphatic: no neck adenopathy, no groin adenopathy Laboratory Tests Test 08/03/17 08:20 08/03/17 10:20 Sodium Level 141 MMOL/L (136-145) Potassium Level 3.4 MMOL/L (3.5-5.1) L Chloride Level 106 MMOL/L (98-107) Carbon Dioxide Level 22 MMOL/L (21-32) Anion Gap 13 mmol/L (5-15) Blood Urea Nitrogen 54 mg/dL (7-18) H Creatinine 5.4 MG/DL (0.55-1.30) H Estimat Glomerular Filtration Rate 8.5 mL/min (>60) Glucose Level 147 MG/DL (74-106) H Calcium Level 8.9 MG/DL (8.5-10.1) Phosphorus Level 4.0 MG/DL (2.5-4.9) Magnesium Level 2.2 MG/DL (1.8-2.4) White Blood Count 20.8 K/UL (4.8-10.8) H Red Blood Count 3.60 M/UL (4.20-5.40) L Hemoglobin 7.6 G/DL (12.0-16.0) L Hematocrit 24.2 % (37.0-47.0) L Mean Corpuscular Volume 67 FL (80-99) L Mean Corpuscular Hemoglobin 21.2 PG (27.0-31.0) L Mean Corpuscular Hemoglobin Concent 31.6 G/DL (32.0-36.0) L Red Cell Distribution Width 15.0 % (11.6-14.8) H Platelet Count 252 K/UL (150-450) Mean Platelet Volume 5.6 FL (6.5-10.1) L Neutrophils (%) (Auto) % (45.0-75.0) Lymphocytes (%) (Auto) % (20.0-45.0) Monocytes (%) (Auto) % (1.0-10.0) Eosinophils (%) (Auto) % (0.0-3.0) Basophils (%) (Auto) % (0.0-2.0) Differential Total Cells Counted 100 Neutrophils % (Manual) 84 % (45-75) H Lymphocytes % (Manual) 8 % (20-45) L Monocytes % (Manual) 4 % (1-10) Eosinophils % (Manual) 0 % (0-3) Basophils % (Manual) 0 % (0-2) Band Neutrophils 4 % (0-8) Platelet Estimate Adequate Platelet Morphology Normal Hypochromasia 1+ Microcytosis 1+ Current Medications Medications (Trade) Dose Ordered Sig/Tommy Route PRN Reason Start Time Stop Time Status Last Admin Dose Admin Acetaminophen (Tylenol) 650 mg EVERY 6 HOURS PRN RECTAL Mild Pain (Pain Scale 1-3) 07/30/17 17:54 08/29/17 17:53 08/01/17 14:43 Chlorhexidine Gluconate ([place]alia-Hex 2%) 1 applic DAILY@2000 TOPIC 07/30/17 20:00 08/29/17 19:59 08/02/17 20:21 Dextrose (Dextrose 50%) 25 ml STAT PRN IV Hypoglycemia 08/03/17 13:15 09/02/17 13:14 Dextrose (Dextrose 50%) 50 ml STAT PRN IV Hypoglycemia 08/03/17 13:15 09/02/17 13:14 Dextrose/Sodium Chloride 1,000 ml @ 75 mls/hr [id number] IV 08/01/17 09:00 08/31/17 08:59 08/03/17 14:06 Fentanyl Citrate 1000 mcg/Sodium Chloride 100 ml @ 0 mls/hr Q24H IV 07/31/17 18:30 08/07/17 18:29 08/03/17 09:12 Heparin Sodium (Porcine) (Heparin 5000 units/ml) 5,000 units EVERY 8 HOURS SUBQ 07/29/17 22:00 08/28/17 21:59 08/03/17 14:07 Insulin Aspart (NovoLOG) 6 units NOVOTIAC SUBQ 08/03/17 16:50 09/02/17 16:49 Insulin Aspart (NovoLOG) Resistance sliding sc... BEFORE MEALS AND HS SUBQ 08/03/17 16:30 09/02/17 16:29 Linezolid 300 ml @ 300 mls/hr Q12HR IVPB 08/02/17 13:30 08/09/17 13:29 08/03/17 08:28 Meropenem 1 gm/ Sodium Chloride 110 ml @ 220 mls/hr Q12HR IVPB 08/02/17 14:00 08/07/17 13:59 08/03/17 08:28 Norepinephrine Bitartrate 8 mg/ Dextrose 250 ml @ 0 mls/hr Q24H IV 07/30/17 08:00 08/29/17 07:59 08/03/17 00:44 Pantoprazole (Protonix) 40 mg DAILY IVP 07/30/17 09:00 08/29/17 08:59 08/03/17 08:27 Silver Sulfadiazine (Silvadene Cream 25gm) 1 applic DAILY TOPIC 08/01/17 10:30 08/31/17 10:29 08/03/17 08:29 Johanny Colbert M.D. August 03, 2017 14:42
[2017-08-03] MEDS ORDERED: D5NS 1000ml IV ONE ×2 (15:20→15:27)
[2017-08-03] MEDS ORDERED: Tubing IV Secondary IV ONE ×2 (15:20→15:27)
[2017-08-03] MEDS ORDERED: NS 500ML ONE ×2 (15:20→15:27)
[2017-08-03] MEDS ORDERED: D5 1/2NS 1000ml IV ONE (15:20)
[2017-08-03] MEDS: NovoLOG Insulin Flexpen SUBQ SCH ×3 (16:30→21:14)
[2017-08-03] MEDS: Dyna-Hex 2% Top Sol 2oz TOPIC SCH (20:00)
--- NOTE | 2017-08-03 22:40 | Pulmonolgy Critical Care Note ---
Critical Care - Asmt/Plan Assessment/Plan: Patient is a 46 year old woman admitted with abdominal wall cellulitis, severe Diabetic Ketoacidosis, currently intubated and sedated in the ICU On antibiotics per ID low dose levophed PRN, off bicarb gtt, s/p HD, worsening renal function AC 18 vt 500 p5 FIO2 25, PRN weaning off pressors Problems: (1) Cellulitis of abdominal wall Assessment & Plan: rule out necrotizing fasciitis , antibiotics per ID, surgery following, urine culture grew strep agalactiae and staph aureua, wound Klebsiella , she is already on meropenem and zyvox per ID (2) UTI (urinary tract infection) on Meropenem/Zyvox (3) Pharyngitis, acute Antibiotics/ID (4) Septic shock Assessment & Plan: due to the above will send blood culture and start vancomycin with zosyn empiric coverage, remains on Levophed intermittently (5) Acute respiratory failure Assessment & Plan: due to the above, intubated in ED continue on mechanical ventilation, lighten sedation PRN, Wean ventilator as tolerated oncce off pressors (6) SCARLET (acute kidney injury) Assessment & Plan: due to the above, continue fluids for hydration and blood pressure support, nephrology is following (7) DKA (diabetic ketoacidoses)/Hyponatremia Assessment & Plan: due to poorly controlled diabetes and sepsis, recommend insulin drip in the ICU with close monitor of her blood glucose to keep between 80-120 Subjective Allergies: Coded Allergies: No Known Allergies (Unverified , 07/29/17) Objective Vital Signs Last 24 Hour Vital Signs Date Time Temp Pulse Resp B/P (MAP) Pulse Ox O2 Delivery O2 Flow Rate FiO2 07/29/17 16:30 82 25 35 07/29/17 15:04 97.0 79 34 103/98 99 Room Air 97.0 07/29/17 13:02 97.0 100 16 73/49 98 Room Air 97.0 Height (Feet): 5 Height (Inches): 5.00 Weight (Pounds): 250 Patient sedated on the ventilator Obese HEENT: NCAT, PERRL, moist MM Chest: CTAB, equal BS, 8.0 ETT 23cm Heart: HS1, Hs2 RRR Abdomen: Obese, erethematous area lower abdominal wall improving Extremeties: No rashes [employer]CIAL CLE[employer]: No focal signs noted, no seizures Laboratory Tests Test 07/29/17 13:55 07/29/17 15:00 07/29/17 15:34 White Blood Count 36.2 K/UL (4.8-10.8) *H Red Blood Count 5.09 M/UL (4.20-5.40) Hemoglobin 10.5 G/DL (12.0-16.0) L Hematocrit 36.4 % (37.0-47.0) L Mean Corpuscular Volume 71 FL (80-99) L Mean Corpuscular Hemoglobin 20.6 PG (27.0-31.0) L Mean Corpuscular Hemoglobin Concent 28.9 G/DL (32.0-36.0) L Red Cell Distribution Width 16.2 % (11.6-14.8) H Platelet Count 525 K/UL (150-450) H Mean Platelet Volume 8.3 FL (6.5-10.1) Neutrophils (%) (Auto) % (45.0-75.0) Lymphocytes (%) (Auto) % (20.0-45.0) Monocytes (%) (Auto) % (1.0-10.0) Eosinophils (%) (Auto) % (0.0-3.0) Basophils (%) (Auto) % (0.0-2.0) Differential Total Cells Counted 100 Neutrophils % (Manual) 69 % (45-75) Lymphocytes % (Manual) 10 % (20-45) L Monocytes % (Manual) 5 % (1-10) Eosinophils % (Manual) 0 % (0-3) Basophils % (Manual) 0 % (0-2) Band Neutrophils 16 % (0-8) H Platelet Estimate Increased H Platelet Morphology Giant Platelets Occasional Polychromasia 1+ Hypochromasia 1+ Anisocytosis 1+ Microcytosis 1+ D-Dimer 1.85 mg/L FEU (0.00-0.49) H Urine Color Pale yellow Urine Appearance Clear Urine pH 5 (4.5-8.0) Urine Specific [place] 1.020 (1.005-1.035) Urine Protein 3+ (NEGATIVE) H Urine Glucose (UA) 4+ (NEGATIVE) H Urine Ketones 3+ (NEGATIVE) H Urine Occult Blood 5+ (NEGATIVE) H Urine Nitrite Negative (NEGATIVE) Urine Bilirubin Negative (NEGATIVE) Urine Urobilinogen Normal MG/DL (0.0-1.0) Urine Leukocyte Esterase 3+ (NEGATIVE) H Urine RBC 5-10 /HPF (0 - 2) H Urine WBC 5-10 /HPF (0 - 2) H Urine Squamous Epithelial Cells Moderate /LPF (NONE/OCC) H Urine Bacteria Few /HPF (NONE) Urine HCG, Qualitative Negative (NEGATIVE) Sodium Level 118 MMOL/L (136-145) *L Potassium Level 5.0 MMOL/L (3.5-5.1) Chloride Level 85 MMOL/L (98-107) L Carbon Dioxide Level < 5 MMOL/L (21-32) *L Blood Urea Nitrogen 28 mg/dL (7-18) H Creatinine 1.8 MG/DL (0.55-1.30) H Estimat Glomerular Filtration Rate 30.1 mL/min (>60) Glucose Level 868 MG/DL (74-106) *H Calcium Level 10.7 MG/DL (8.5-10.1) H Total Bilirubin 0.7 MG/DL (0.2-1.0) Aspartate Amino Transf (AST/SGOT) 44 U/L (15-37) H Alanine Aminotransferase (ALT/SGPT) 29 U/L (12-78) Alkaline Phosphatase 337 U/L (46-116) H Total Creatine Kinase 159 U/L (26-308) Creatine Kinase MB 3.3 NG/ML (0.0-3.6) Creatine Kinase MB Relative Index 2.0 Troponin I 0.000 ng/mL (0.000-0.056) Pro-B-Type Natriuretic Peptide 5024 pg/mL (0-125) H Total Protein 8.3 G/DL (6.4-8.2) H Albumin 2.3 G/DL (3.4-5.0) L Globulin 6.0 g/dL Albumin/Globulin Ratio 0.4 (1.0-2.7) L Lipase 47 U/L (73-393) L Urine Opiates Screen Negative (NEGATIVE) Urine Barbiturates Screen Negative (NEGATIVE) Phencyclidine (PCP) Screen Negative (NEGATIVE) Urine Amphetamines Screen Negative (NEGATIVE) Urine Benzodiazepines Screen Negative (NEGATIVE) Urine Cocaine Screen Negative (NEGATIVE) Urine Marijuana (THC) Screen Negative (NEGATIVE) Lactic Acid Level 1.10 mmol/L (0.66-2.22) Arterial Blood pH 6.830 (7.350-7.450) Arterial Blood Partial Pressure CO2 21.0 mmHg (35.0-45.0) *L Arterial Blood Partial Pressure O2 108.8 mmHg (75.0-100.0) H Arterial Blood HCO3 3.4 mmol/L (22.0-26.0) L Arterial Blood Oxygen Saturation 95.7 % (92.0-98.0) Arterial Blood Base Excess -29.1 Ravi Test Positive Current Medications Medications (Trade) Dose Ordered Sig/Tommy Route PRN Reason Start Time Stop Time Status Last Admin Dose Admin Insulin Human Regular 100 units/ Sodium Chloride 100 ml @ 5 mls/hr Q24H IV 07/29/17 14:15 08/28/17 14:14 Norepinephrine Bitartrate 4 mg/ Dextrose 250 ml @ 0 mls/hr Q24H IV 07/29/17 16:45 08/28/17 16:44 Piperacillin Sod/ Tazobactam Sod 3.375 gm/Sodium Chloride 110 ml @ 27.5 mls/hr EVERY 8 HOURS IVPB 07/29/17 22:00 08/03/17 21:59 Vancomycin HCl (Vanco rx to dose) 1 ea DAILY PRN MISC Per rx protocol 07/29/17 16:00 08/28/17 15:59 Vancomycin HCl 500 mg/Dextrose 110 ml @ 110 mls/hr ONCE ONCE IVPB 07/29/17 18:00 07/29/17 18:59 Critical Care - Objective Last 24 Hour Vital Signs Date Time Temp Pulse Resp B/P (MAP) Pulse Ox O2 Delivery O2 Flow Rate FiO2 08/03/17 22:00 83 22 103/47 100 Mechanical Ventilator 35 08/03/17 21:30 85 17 113/53 91 Mechanical Ventilator 35 08/03/17 21:25 84 29 45 08/03/17 21:00 99.0 90 24 111/54 95 Mechanical Ventilator 35 99.0 08/03/17 20:30 88 29 100/48 90 Mechanical Ventilator 35 08/03/17 20:00 100.0 95 35 104/66 92 Mechanical Ventilator 35 100.0 08/03/17 20:00 33 08/03/17 20:00 45 08/03/17 19:37 96 08/03/17 19:30 94 26 115/57 95 Mechanical Ventilator 35 5/9/18 19:01 92 33 45 5/9/18 19:00 90 27 117/57 98 Mechanical Ventilator 35 5/9/18 18:30 90 27 110/66 98 Mechanical Ventilator 35 5/9/18 18:00 91 27 100/61 98 Mechanical Ventilator 35 5/9/18 17:30 90 27 115/56 98 Mechanical Ventilator 35 5/9/18 17:00 88 27 97/45 96 Mechanical Ventilator 35 5/9/18 16:49 91 34 45 5/9/18 16:30 91 20 129/53 100 Mechanical Ventilator 35 5/9/18 16:00 35 5/9/18 16:00 91 5/9/18 16:00 99.0 89 20 107/42 99 Mechanical Ventilator 35 99.0 5/9/18 15:30 90 20 111/56 96 Mechanical Ventilator 35 5/9/18 15:13 90 32 35 5/9/18 15:00 90 20 113/48 100 Mechanical Ventilator 35 5/9/18 14:30 87 18 106/54 97 Mechanical Ventilator 35 5/9/18 14:00 84 16 99/43 98 Mechanical Ventilator 35 5/9/18 13:30 88 26 97/45 96 Mechanical Ventilator 35 5/9/18 13:00 80 26 94/45 96 Mechanical Ventilator 35 5/9/18 13:00 27 5/9/18 12:44 83 27 35 5/9/18 12:30 83 26 99/50 96 Mechanical Ventilator 35 5/9/18 12:00 99.1 76 28 92/48 100 Mechanical Ventilator 35 99.1 5/9/18 12:00 77 5/9/18 11:30 76 28 100/59 100 Mechanical Ventilator 35 5/9/18 11:00 77 28 103/53 100 Mechanical Ventilator 35 5/9/18 11:00 31 5/9/18 10:34 83 29 35 5/9/18 10:30 83 28 90/45 100 Mechanical Ventilator 35 5/9/18 10:23 35 5/9/18 10:00 30 5/9/18 10:00 98 29 103/57 100 Mechanical Ventilator 45 5/9/18 09:30 94 30 115/52 100 Mechanical Ventilator 45 5/9/18 09:28 95 30 35 5/9/18 09:12 26 5/9/18 09:00 29 08/03/17 09:00 102 20 93/50 100 Mechanical Ventilator 45 08/03/17 08:30 112 20 90/48 97 Mechanical Ventilator 45 08/03/17 08:00 45 08/03/17 08:00 107 08/03/17 08:00 33 08/03/17 08:00 98.7 105 20 95/49 95 Mechanical Ventilator 45 98.7 08/03/17 07:30 107 32 104/55 95 Mechanical Ventilator 45 08/03/17 07:17 113 37 45 08/03/17 07:00 112 20 117/59 88 Mechanical Ventilator 25 08/03/17 07:00 30 08/03/17 06:30 120 20 175/85 98 Mechanical Ventilator 25 08/03/17 06:30 32 08/03/17 06:15 33 08/03/17 06:00 93 20 188/62 98 Mechanical Ventilator 25 08/03/17 06:00 33 08/03/17 05:30 93 20 136/62 98 Mechanical Ventilator 25 08/03/17 05:30 30 08/03/17 05:20 81 30 25 08/03/17 05:00 27 08/03/17 05:00 83 20 136/64 98 Mechanical Ventilator 25 08/03/17 04:30 85 20 130/53 98 Mechanical Ventilator 25 08/03/17 04:30 32 08/03/17 04:00 98.4 85 20 141/55 98 Mechanical Ventilator 25 98.4 08/03/17 04:00 29 08/03/17 04:00 25 08/03/17 04:00 82 08/03/17 03:30 85 20 141/64 98 Mechanical Ventilator 25 08/03/17 03:00 24 08/03/17 03:00 82 20 144/70 98 Mechanical Ventilator 25 08/03/17 02:44 77 28 25 08/03/17 02:30 78 20 109/40 98 Mechanical Ventilator 25 08/03/17 02:00 17 08/03/17 02:00 114/48 08/03/17 02:00 76 28 106/36 100 Mechanical Ventilator 25 08/03/17 01:30 78 28 91/41 100 Mechanical Ventilator 25 08/03/17 01:00 82 28 104/45 100 Mechanical Ventilator 25 08/03/17 01:00 32 08/03/17 01:00 136/60 08/03/17 00:53 83 30 25 08/03/17 00:44 124/46 08/03/17 00:30 82 28 131/53 100 Mechanical Ventilator 08/03/17 00:00 25 08/03/17 00:00 23 08/03/17 00:00 119/48 08/03/17 00:00 98.4 84 28 134/57 100 Mechanical Ventilator 25 98.4 08/03/17 00:00 86 08/02/17 23:30 83 28 129/52 100 Mechanical Ventilator 25 08/02/17 23:00 83 28 121/56 100 Mechanical Ventilator 25 08/02/17 23:00 29 08/02/17 23:00 121/56 Accucheck: 145 Critical Care - Subjective ROS Limited/Unobtainable: Yes Condition: stable IV Access: central EKG Rhythm: Sinus Bradycardia FI02: 35 Vent Support Breath Rate: 18 Vent Support Mode: AC Vent Tidal Volume: 500 Sputum Amount: Scant PEEP: 5.0 PIP: 31 I&O: Intake and Output 08/02/17 08/03/17 19:00 07:00 Intake Total 4746.041 ml 4407.99 ml Output Total 103 ml 255 ml Balance 4643.041 ml 4152.99 ml Intake Oral 0 ml 0 ml IV Total 4746.041 ml 4407.99 ml Output Urine Total 103 ml 255 ml ET-Tube: 8.0 ET Position: 22 Marko Chaney M.D. August 03, 2017 22:40
--- NOTE | 2017-08-03 23:48 | Cardiology Progress Note ---
Assessment/Plan Assessment/Plan COVERAGE FOR DR. SPARROW 1. Septic shock on Levophed gtt, EF ~60%. 2. Diabetic ketoacidosis, on IV fluids and insulin. 3. Morbid obesity. 4. Respiratory failure, currently on the ventilator. 5. SCARLET now on HD Subjective Subjective Sinus rhythm at 81. Objective Last 24 Hour Vital Signs Date Time Temp Pulse Resp B/P (MAP) Pulse Ox O2 Delivery O2 Flow Rate FiO2 08/03/17 23:38 81 28 40 08/03/17 23:03 20 08/03/17 23:00 24 08/03/17 23:00 83 18 104/49 100 Mechanical Ventilator 35 08/03/17 22:30 83 18 103/48 100 Mechanical Ventilator 35 08/03/17 22:00 83 22 103/47 100 Mechanical Ventilator 35 08/03/17 22:00 24 08/03/17 21:30 85 17 113/53 91 Mechanical Ventilator 35 08/03/17 21:25 84 29 45 08/03/17 21:00 99.0 90 24 111/54 95 Mechanical Ventilator 35 99.0 08/03/17 21:00 24 08/03/17 20:30 88 29 100/48 90 Mechanical Ventilator 35 08/03/17 20:00 100.0 95 35 104/66 92 Mechanical Ventilator 35 100.0 08/03/17 20:00 33 08/03/17 20:00 45 08/03/17 19:37 96 08/03/17 19:30 94 26 115/57 95 Mechanical Ventilator 35 08/03/17 19:01 92 33 45 08/03/17 19:00 90 27 117/57 98 Mechanical Ventilator 35 08/03/17 18:30 90 27 110/66 98 Mechanical Ventilator 35 08/03/17 18:00 91 27 100/61 98 Mechanical Ventilator 35 08/03/17 17:30 90 27 115/56 98 Mechanical Ventilator 35 08/03/17 17:00 88 27 97/45 96 Mechanical Ventilator 35 08/03/17 16:49 91 34 45 08/03/17 16:30 91 20 129/53 100 Mechanical Ventilator 35 08/03/17 16:00 35 08/03/17 16:00 91 08/03/17 16:00 99.0 89 20 107/42 99 Mechanical Ventilator 35 99.0 08/03/17 15:30 90 20 111/56 96 Mechanical Ventilator 35 5/9/18 15:13 90 32 35 5/9/18 15:00 90 20 113/48 100 Mechanical Ventilator 35 5/9/18 14:30 87 18 106/54 97 Mechanical Ventilator 35 5/9/18 14:00 84 16 99/43 98 Mechanical Ventilator 35 5/9/18 13:30 88 26 97/45 96 Mechanical Ventilator 35 5/9/18 13:00 80 26 94/45 96 Mechanical Ventilator 35 5/9/18 13:00 27 5/9/18 12:44 83 27 35 5/9/18 12:30 83 26 99/50 96 Mechanical Ventilator 35 5/9/18 12:00 99.1 76 28 92/48 100 Mechanical Ventilator 35 99.1 5/9/18 12:00 77 5//18 11:30 76 28 100/59 100 Mechanical Ventilator 35 5/9/18 11:00 77 28 103/53 100 Mechanical Ventilator 35 5/9/18 11:00 31 5/9/18 10:34 83 29 35 5/9/18 10:30 83 28 90/45 100 Mechanical Ventilator 35 5/9/18 10:23 35 5/9/18 10:00 30 5/9/18 10:00 98 29 103/57 100 Mechanical Ventilator 45 5/9/18 09:30 94 30 115/52 100 Mechanical Ventilator 45 5/9/18 09:28 95 30 35 5/9/18 09:12 26 5/9/18 09:00 29 5/9/18 09:00 102 20 93/50 100 Mechanical Ventilator 45 5/9/18 08:30 112 20 90/48 97 Mechanical Ventilator 45 5/9/18 08:00 45 5/9/18 08:00 107 5/9/18 08:00 33 5/9/18 08:00 98.7 105 20 95/49 95 Mechanical Ventilator 45 98.7 5/9/18 07:30 107 32 104/55 95 Mechanical Ventilator 45 5/9/18 07:17 113 37 45 5/9/18 07:00 112 20 117/59 88 Mechanical Ventilator 25 5/9/18 07:00 30 5/9/18 06:30 120 20 175/85 98 Mechanical Ventilator 25 5/9/18 06:30 32 5/9/18 06:15 33 5/9/18 06:00 93 20 188/62 98 Mechanical Ventilator 25 08/03/17 06:00 33 08/03/17 05:30 93 20 136/62 98 Mechanical Ventilator 25 08/03/17 05:30 30 08/03/17 05:20 81 30 25 08/03/17 05:00 27 08/03/17 05:00 83 20 136/64 98 Mechanical Ventilator 25 08/03/17 04:30 85 20 130/53 98 Mechanical Ventilator 25 08/03/17 04:30 32 08/03/17 04:00 98.4 85 20 141/55 98 Mechanical Ventilator 25 98.4 08/03/17 04:00 29 08/03/17 04:00 25 08/03/17 04:00 82 08/03/17 03:30 85 20 141/64 98 Mechanical Ventilator 25 08/03/17 03:00 24 08/03/17 03:00 82 20 144/70 98 Mechanical Ventilator 25 08/03/17 02:44 77 28 25 08/03/17 02:30 78 20 109/40 98 Mechanical Ventilator 25 08/03/17 02:00 17 08/03/17 02:00 114/48 08/03/17 02:00 76 28 106/36 100 Mechanical Ventilator 25 08/03/17 01:30 78 28 91/41 100 Mechanical Ventilator 25 08/03/17 01:00 82 28 104/45 100 Mechanical Ventilator 25 08/03/17 01:00 32 08/03/17 01:00 136/60 08/03/17 00:53 83 30 25 08/03/17 00:44 124/46 08/03/17 00:30 82 28 131/53 100 Mechanical Ventilator 25 08/03/17 00:00 25 08/03/17 00:00 23 08/03/17 00:00 119/48 08/03/17 00:00 98.4 84 28 134/57 100 Mechanical Ventilator 25 98.4 08/03/17 00:00 86 Intake and Output 08/02/17 08/03/17 19:00 07:00 Intake Total 4746.041 ml 4407.99 ml Output Total 103 ml 255 ml Balance 4643.041 ml 4152.99 ml Intake Oral 0 ml 0 ml IV Total 4746.041 ml 4407.99 ml Output Urine Total 103 ml 255 ml 2D Echo: EF 65%, RVSP 57 mmHg, Mild MR Laboratory Tests Test 08/03/17 08:20 08/03/17 10:20 Sodium Level 141 MMOL/L (136-145) Potassium Level 3.4 MMOL/L (3.5-5.1) L Chloride Level 106 MMOL/L (98-107) Carbon Dioxide Level 22 MMOL/L (21-32) Anion Gap 13 mmol/L (5-15) Blood Urea Nitrogen 54 mg/dL (7-18) H Creatinine 5.4 MG/DL (0.55-1.30) H Estimat Glomerular Filtration Rate 8.5 mL/min (>60) Glucose Level 147 MG/DL (74-106) H Calcium Level 8.9 MG/DL (8.5-10.1) Phosphorus Level 4.0 MG/DL (2.5-4.9) Magnesium Level 2.2 MG/DL (1.8-2.4) White Blood Count 20.8 K/UL (4.8-10.8) H Red Blood Count 3.60 M/UL (4.20-5.40) L Hemoglobin 7.6 G/DL (12.0-16.0) L Hematocrit 24.2 % (37.0-47.0) L Mean Corpuscular Volume 67 FL (80-99) L Mean Corpuscular Hemoglobin 21.2 PG (27.0-31.0) L Mean Corpuscular Hemoglobin Concent 31.6 G/DL (32.0-36.0) L Red Cell Distribution Width 15.0 % (11.6-14.8) H Platelet Count 252 K/UL (150-450) Mean Platelet Volume 5.6 FL (6.5-10.1) L Neutrophils (%) (Auto) % (45.0-75.0) Lymphocytes (%) (Auto) % (20.0-45.0) Monocytes (%) (Auto) % (1.0-10.0) Eosinophils (%) (Auto) % (0.0-3.0) Basophils (%) (Auto) % (0.0-2.0) Differential Total Cells Counted 100 Neutrophils % (Manual) 84 % (45-75) H Lymphocytes % (Manual) 8 % (20-45) L Monocytes % (Manual) 4 % (1-10) Eosinophils % (Manual) 0 % (0-3) Basophils % (Manual) 0 % (0-2) Band Neutrophils 4 % (0-8) Platelet Estimate Adequate Platelet Morphology Normal Hypochromasia 1+ Microcytosis 1+ Objective HEAD AND NECK: Shows no JVD, orally intubated. LUNGS: Coarse rhonchi. CARDIOVASCULAR: Regular S1 and S2 with no gallop. ABDOMEN: Cellulitis of the lower abdomen and erythema. EXTREMITIES: There is 1+ pitting edema.BEVERLEY Gagnon August 03, 2017 23:48
[2017-08-04] VITALS (49 sets, daily range): BP systolic 85–134; BP diastolic 40–61
[2017-08-04] MEDS: D5NS 1,000 ML IV SCH ×2 (04:10→18:44)
[2017-08-04 04:42] LABS: ANION GAP 16 mmol/L (5-15); BLOOD UREA NITROGEN 61 mg/dL (7-18); CALCIUM 8.3 MG/DL (8.5-10.1); CARBON DIOXIDE 17 MMOL/L (21-32); CHLORIDE 106 MMOL/L (98-107); CREATININE 5.7 MG/DL (0.55-1.30); POTASSIUM 3.6 MMOL/L (3.5-5.1); SODIUM 139 MMOL/L (136-145)
[2017-08-04] MEDS: Heparin 5000 units/ml inj SUBQ SCH ×3 (06:00→22:00)
[2017-08-04] MEDS: NovoLOG Insulin Flexpen SUBQ SCH ×7 (06:10→21:13)
--- NOTE | 2017-08-04 07:57 | Nephrology Progress Note ---
Assessment/Plan Assessment/Plan 1. SCARLET- renal function has worsened and serum HCO3 has decreased - multifact ATN (sepsis induced inflammotory cytokine prox tub damage/ ishchemic ATN hypotension/vol dep) - HD today ordered 2. DKA/Met Acidosis- HD today again #2 to correct acidosis - due hypoperfusion 3. Septic Shock- etiology likely from abd cellulitis. Abx mgmt per ID - Gen Surg mgmt of abdomen paniculitis. 4. Hypotension- Maintain MAP >65 mmHg with prn IV pressor. Stable 5. Resp FL- intubated on ventilator per [facility] management 6. Hypok+/Ca/Phos- replace prn. Subjective Date patient seen: August 04, 2017 Time patient seen: 07:52 Constitutional: Reports: other - intubated on vent Allergies: Coded Allergies: PENICILLINS (Verified Allergy, Unknown, 07/30/17) According to mother, the patient is allergic to Penicillins All Systems: reviewed and negative except above Subjective Patient remains intubated. Is awake and seemingly coherent Objective Last 24 Hour Vital Signs Date Time Temp Pulse Resp B/P (MAP) Pulse Ox O2 Delivery O2 Flow Rate FiO2 08/04/17 07:30 99.0 84 29 117/49 100 Mechanical Ventilator 40 99.0 08/04/17 07:00 88 30 101/48 100 Mechanical Ventilator 40 08/04/17 07:00 28 08/04/17 06:46 89 33 40 08/04/17 06:30 89 29 104/50 100 Mechanical Ventilator 40 08/04/17 06:00 29 08/04/17 06:00 86 29 107/54 100 Mechanical Ventilator 40 08/04/17 05:30 86 30 104/52 100 Mechanical Ventilator 40 08/04/17 05:00 87 31 122/58 100 Mechanical Ventilator 45 08/04/17 05:00 31 08/04/17 04:57 87 32 40 08/04/17 04:30 84 28 102/48 100 Mechanical Ventilator 45 08/04/17 04:00 45 08/04/17 04:00 99.1 81 27 96/45 100 Mechanical Ventilator 45 99.1 08/04/17 04:00 30 08/04/17 03:30 82 27 98/47 100 Mechanical Ventilator 45 08/04/17 03:26 83 27 40 08/04/17 03:09 84 08/04/17 03:00 82 28 109/53 100 Mechanical Ventilator 45 08/04/17 03:00 27 08/04/17 02:30 77 27 96/46 100 Mechanical Ventilator 45 08/04/17 02:00 78 27 85/40 100 Mechanical Ventilator 45 08/04/17 02:00 27 08/04/17 01:30 81 27 95/47 100 Mechanical Ventilator 45 08/04/17 01:00 28 08/04/17 01:00 87 28 106/52 100 Mechanical Ventilator 45 08/04/17 00:47 88 27 40 08/04/17 00:30 85 26 111/54 100 Mechanical Ventilator 45 08/04/17 00:00 99.0 84 26 107/55 100 Mechanical Ventilator 45 99.0 08/04/17 00:00 26 08/03/17 23:38 81 28 40 08/03/17 23:30 81 25 111/56 100 Mechanical Ventilator 45 08/03/17 23:15 79 08/03/17 23:03 20 08/03/17 23:00 24 08/03/17 23:00 83 18 104/49 100 Mechanical Ventilator 45 08/03/17 22:30 83 18 103/48 100 Mechanical Ventilator 45 08/03/17 22:00 83 22 103/47 100 Mechanical Ventilator 45 08/03/17 22:00 24 08/03/17 21:30 85 17 113/53 91 Mechanical Ventilator 45 08/03/17 21:25 84 29 45 08/03/17 21:00 99.0 90 24 111/54 95 Mechanical Ventilator 45 99.0 08/03/17 21:00 24 08/03/17 20:30 88 29 100/48 90 Mechanical Ventilator 45 08/03/17 20:00 100.0 95 35 104/66 92 Mechanical Ventilator 45 100.0 08/03/17 20:00 33 /9/18 20:00 45 18 19:37 96 5/18 19:30 94 26 115/57 95 Mechanical Ventilator 35 5/9/18 19:01 92 33 45 5/9/18 19:00 90 27 117/57 98 Mechanical Ventilator 35 5/9/18 18:30 90 27 110/66 98 Mechanical Ventilator 35 5/9/18 18:00 91 27 100/61 98 Mechanical Ventilator 35 5/9/18 17:30 90 27 115/56 98 Mechanical Ventilator 35 5/9/18 17:00 88 27 97/45 96 Mechanical Ventilator 35 5/9/18 16:49 91 34 45 5/9/18 16:30 91 20 129/53 100 Mechanical Ventilator 35 5/9/18 16:00 35 5/9/18 16:00 91 5/9/18 16:00 99.0 89 20 107/42 99 Mechanical Ventilator 35 99.0 5/9/18 15:30 90 20 111/56 96 Mechanical Ventilator 35 5/9/18 15:13 90 32 35 5/9/18 15:00 90 20 113/48 100 Mechanical Ventilator 35 5/9/18 14:30 87 18 106/54 97 Mechanical Ventilator 35 5/9/18 14:00 84 16 99/43 98 Mechanical Ventilator 35 5/9/18 13:30 88 26 97/45 96 Mechanical Ventilator 35 5/9/18 13:00 80 26 94/45 96 Mechanical Ventilator 35 5/9/18 13:00 27 5/9/18 12:44 83 27 35 5/9/18 12:30 83 26 99/50 96 Mechanical Ventilator 35 5/9/18 12:00 99.1 76 28 92/48 100 Mechanical Ventilator 35 99.1 5/9/18 12:00 77 5//18 11:30 76 28 100/59 100 Mechanical Ventilator 35 5/9/18 11:00 77 28 103/53 100 Mechanical Ventilator 35 5/9/18 11:00 31 5/9/18 10:34 83 29 35 5/9/18 10:30 83 28 90/45 100 Mechanical Ventilator 35 5/9/18 10:23 35 5/9/18 10:00 30 5/9/18 10:00 98 29 103/57 100 Mechanical Ventilator 45 5/9/18 09:30 94 30 115/52 100 Mechanical Ventilator 45 5/9/18 09:28 95 30 35 5/9/18 09:12 26 5/9/18 09:00 29 5/9/18 09:00 102 20 93/50 100 Mechanical Ventilator 45 5/9/18 08:30 112 20 90/48 97 Mechanical Ventilator 45 5/9/18 08:00 45 5/9/18 08:00 107 5/9/18 08:00 33 5/9/18 08:00 98.7 105 20 95/49 95 Mechanical Ventilator 45 98.7 Intake and Output 08/03/17 08/04/17 19:00 07:00 Intake Total 1525.0 ml 1379 ml Output Total 145 ml 330 ml Balance 1380.0 ml 1049 ml Intake Oral 0 ml 0 ml IV Total 1525.0 ml 1379 ml Output Urine Total 145 ml 330 ml # Bowel Movements 1 Laboratory Tests 08/03/17 08:20: Sodium Level 141, Potassium Level 3.4L, Chloride Level 106, Carbon Dioxide Level 22, Anion Gap 13, Blood Urea Nitrogen 54H, Creatinine 5.4H, Estimat Glomerular Filtration Rate 8.5, Glucose Level 147H, Calcium Level 8.9, Phosphorus Level 4.0, Magnesium Level 2.2 08/03/17 10:20: White Blood Count 20.8H, Red Blood Count 3.60L, Hemoglobin 7.6L, Hematocrit 24.2L, Mean Corpuscular Volume 67L, Mean Corpuscular Hemoglobin 21.2L, Mean Corpuscular Hemoglobin Concent 31.6L, Red Cell Distribution Width 15.0H, Platelet Count 252, Mean Platelet Volume 5.6L, Neutrophils (%) (Auto) , Lymphocytes (%) (Auto) , Monocytes (%) (Auto) , Eosinophils (%) (Auto) , Basophils (%) (Auto) , Differential Total Cells Counted 100, Neutrophils % ( Manual) 84H, Lymphocytes % (Manual) 8L, Monocytes % (Manual) 4, Eosinophils % ( Manual) 0, Basophils % (Manual) 0, Band Neutrophils 4, Platelet Estimate Adequate, Platelet Morphology Normal, Hypochromasia 1+, Microcytosis 1+ 08/04/17 04:05: Sodium Level 139, Potassium Level 3.6, Chloride Level 106, Carbon Dioxide Level 17L, Anion Gap 16H, Blood Urea Nitrogen 61H, Creatinine 5.7H, Estimat Glomerular Filtration Rate 7.9, Glucose Level 213H, Calcium Level 8.3L, White Blood Count [Pending], Red Blood Count [Pending], Hemoglobin [Pending], Hematocrit [Pending], Mean Corpuscular Volume [Pending], Mean Corpuscular Hemoglobin [Pending], Mean Corpuscular Hemoglobin Concent [Pending], Red Cell Distribution Width [Pending], Platelet Count [Pending], Mean Platelet Volume [ Pending], Neutrophils (%) (Auto) [Pending], Lymphocytes (%) (Auto) [Pending], Monocytes (%) (Auto) [Pending], Eosinophils (%) (Auto) [Pending], Basophils (%) (Auto) [Pending] Height (Feet): 5 Height (Inches): 5.00 Weight (Pounds): 322 General Appearance: WD/WN, no apparent distress, alert EENT: normal ENT inspection Neck: non-tender, normal alignment Cardiovascular: normal rate, regular rhythm Respiratory/Chest: chest wall non-tender, lungs clear, normal breath sounds Abdomen: normal bowel sounds, non tender, other - erythema improved Edema: 1+ Leg (L), 1+ Leg (R) Edema: trace edema Carlton Guzmán M.D. August 04, 2017 07:57
[2017-08-04 08:05] LABS: HEMATOCRIT 22.6 % (37.0-47.0); MEAN CORPUSCULAR VOLUME 67 FL (80-99); PLATELET COUNT 255 K/UL (150-450); RED BLOOD COUNT 3.35 M/UL (4.20-5.40); RED CELL DISTRIBUTION WIDTH 15.6 % (11.6-14.8); WHITE BLOOD COUNT 19.6 K/UL (4.8-10.8)
[2017-08-04 08:06] LABS: HEMOGLOBIN 6.9 G/DL (12.0-16.0)
[2017-08-04] MEDS: Meropenem 1 GM in NS 110 ML IVPB SCH ×2 (09:18→20:33)
[2017-08-04] MEDS: Pantoprazole Inj IVP SCH (09:18)
--- NOTE | 2017-08-04 11:57 | Diagnostic Imaging Report ---
INDICATION: Infection COMPARISON: 07/29/17 FINDINGS: Single frontal view demonstrates a normal cardiomediastinal silhouette. Endotracheal tube 4.7 cm above the waqar. Nasogastric tube in place. Stable small bilateral lower lobe opacities. No pleural effusions. The visualized osseous structures are within normal limits. IMPRESSION: Endotracheal tube 4.7 cm above the waqar. Nasogastric tube in place. Stable small bilateral lower lobe opacities.
--- NOTE | 2017-08-04 11:57 | Diagnostic Imaging Report ---
EXAM: XR Chest, 1 View CLINICAL HISTORY: COUGH TECHNIQUE: Frontal view of the chest. COMPARISON: Chest radiographs 07/29/2017 at 1329 hrs. FINDINGS: Lungs: Low lung volumes with bronchovascular crowding. Pleural space: Left small pleural effusion with passive atelectasis or consolidation. No pneumothorax. Heart: Unremarkable. No cardiomegaly. Mediastinum: Unremarkable. Bones/joints: Unremarkable. Tubes, lines and devices: Endotracheal tube 2.5 cm above waqar. Enteric tube with tip in the gastric body, position appropriate. IMPRESSION: 1. Endotracheal tube 2.5 cm above waqar. 2. Enteric tube with tip in the gastric body, position appropriate. 3. Left small pleural effusion with passive atelectasis or consolidation. 4. Low lung volumes with bronchovascular crowding.
--- NOTE | 2017-08-04 11:57 | Diagnostic Imaging Report ---
INDICATION: Abnormal labs COMPARISON: Chest x-ray dated 07/30/17 FINDINGS: Single frontal view demonstrates a normal cardiomediastinal silhouette. Endotracheal tube 4.5 cm above the waqar. Nasogastric tube in gastric cavity. The lungs are clear. No pleural effusions. The visualized osseous structures are within normal limits. IMPRESSION: Endotracheal tube 4.5 cm above the waqar. Nasogastric tube in gastric cavity.
--- NOTE | 2017-08-04 14:00 | Infectious Diseases Prog Note ---
Assessment/Plan Problems: (1) Cellulitis of abdominal wall Assessment & Plan: with panniculitis, skin US showed no abscess but phlegmon , her redness is fading away , ointment mill tender mainly in the left lower abdomen , groin and left labium , will continue meropenem and zyvox empiric coverage for now , surgery attempted to aspirate the left labium phlegmon but there was no pus to drain , await repeated blood culture (2) UTI (urinary tract infection) Assessment & Plan: culture grew strep agalactiae and staph aureua , she is already on meropenem and zyvox (3) Pharyngitis, acute Assessment & Plan: already on zosyn (4) Septic shock Assessment & Plan: due to the above , improving , off pressor today , blood culture is still negative , with leukocytosis , now on meropenem and zyvox , await repeated blood culture , monitor WBC (5) Acute respiratory failure Assessment & Plan: due to the above, intubated in ED started on mechanical ventilation, monitor ABG and CXR, pulmonary is following (6) SCARLET (acute kidney injury) Assessment & Plan: now with ESRD , due to the above, started on HD , nephrology is following, monitor UOP (7) DKA (diabetic ketoacidoses) Assessment & Plan: due to poorly controlled diabetes and sepsis, S/P insulin drip in the ICU , continue close monitor of her blood glucose to keep between 80 -120 (8) Leg wound, left Assessment & Plan: with infection due to staph aureus and klebsiella oxytoca, already on meropenem and zyvox , continue local wound care as per hospital protocol Subjective Constitutional: Reports: no symptoms HEENT: Reports: no symptoms Respiratory: Reports: no symptoms Breasts: Reports: no symptoms Cardiovascular: Reports: no symptoms Gastrointestinal/Abdominal: Reports: no symptoms Genitourinary: Reports: no symptoms Neurologic: Reports: weakness Psychiatric: Reports: no symptoms Skin: Reports: other - red edematous on the left lower abdomen Endocrine: Reports: no symptoms Hematologic: Reports: no symptoms Musculoskeletal: Reports: no symptoms Allergies: Coded Allergies: PENICILLINS (Verified Allergy, Unknown, 07/30/17) According to mother, the patient is allergic to Penicillins Subjective she was more awake and responsive . denied any significant pain , still intubated on mechanical ventilation , responds to verbal commands well , off pressor and insulin drip, no fever today . the redness on the lower abdomen is fading away and shifting to the left lower side of her abdomen , less on the inner thighs, left labium is hard and infiltrated, with left groin lymphadenopathy , small skin breaks with blisters Objective Vital Signs Last 24 Hour Vital Signs Date Time Temp Pulse Resp B/P (MAP) Pulse Ox O2 Delivery O2 Flow Rate FiO2 08/04/17 13:05 30 08/04/17 12:52 86 30 30 08/04/17 12:30 80 20 108/50 100 Mechanical Ventilator 40 08/04/17 12:00 81 08/04/17 12:00 81 28 106/46 100 Mechanical Ventilator 40 08/04/17 11:30 86 24 103/44 100 Mechanical Ventilator 40 08/04/17 11:00 80 28 115/46 100 Mechanical Ventilator 40 08/04/17 11:00 29 08/04/17 10:49 90 34 40 08/04/17 10:40 Mechanical Ventilator 40 08/04/17 10:30 99.0 89 30 117/46 100 Mechanical Ventilator 40 99.0 08/04/17 10:10 40 08/04/17 10:00 80 28 120/46 100 Mechanical Ventilator 40 08/04/17 10:00 29 08/04/17 09:30 84 27 118/44 100 Mechanical Ventilator 40 08/04/17 09:18 28 08/04/17 09:00 85 28 119/55 100 Mechanical Ventilator 40 08/04/17 09:00 45 08/04/17 08:55 86 31 40 08/04/17 08:30 84 28 125/56 100 Mechanical Ventilator 40 08/04/17 08:00 84 29 119/53 100 Mechanical Ventilator 40 08/04/17 08:00 28 08/04/17 08:00 112/52 08/04/17 08:00 80 08/04/17 07:30 99.0 84 29 117/49 100 Mechanical Ventilator 40 99.0 08/04/17 07:00 88 30 101/48 100 Mechanical Ventilator 40 08/04/17 07:00 28 08/04/17 06:46 89 33 40 08/04/17 06:30 89 29 104/50 100 Mechanical Ventilator 40 08/04/17 06:00 29 08/04/17 06:00 86 29 107/54 100 Mechanical Ventilator 40 08/04/17 05:30 86 30 104/52 100 Mechanical Ventilator 40 08/04/17 05:00 87 31 122/58 100 Mechanical Ventilator 45 08/04/17 05:00 31 08/04/17 04:57 87 32 40 08/04/17 04:30 84 28 102/48 100 Mechanical Ventilator 45 08/04/17 04:00 45 08/04/17 04:00 99.1 81 27 96/45 100 Mechanical Ventilator 45 99.1 08/04/17 04:00 30 08/04/17 03:30 82 27 98/47 100 Mechanical Ventilator 45 08/04/17 03:26 83 27 40 08/04/17 03:09 84 08/04/17 03:00 82 28 109/53 100 Mechanical Ventilator 45 08/04/17 03:00 27 08/04/17 02:30 77 27 96/46 100 Mechanical Ventilator 45 08/04/17 02:00 78 27 85/40 100 Mechanical Ventilator 45 08/04/17 02:00 27 08/04/17 01:30 81 27 95/47 100 Mechanical Ventilator 45 08/04/17 01:00 28 08/04/17 01:00 87 28 106/52 100 Mechanical Ventilator 45 08/04/17 00:47 88 27 40 08/04/17 00:30 85 26 111/54 100 Mechanical Ventilator 45 08/04/17 00:00 99.0 84 26 107/55 100 Mechanical Ventilator 45 99.0 08/04/17 00:00 26 08/03/17 23:38 81 28 40 08/03/17 23:30 81 25 111/56 100 Mechanical Ventilator 45 08/03/17 23:15 79 08/03/17 23:03 20 08/03/17 23:00 24 08/03/17 23:00 83 18 104/49 100 Mechanical Ventilator 45 08/03/17 22:30 83 18 103/48 100 Mechanical Ventilator 45 08/03/17 22:00 83 22 103/47 100 Mechanical Ventilator 45 08/03/17 22:00 24 08/03/17 21:30 85 17 113/53 91 Mechanical Ventilator 45 08/03/17 21:25 84 29 45 08/03/17 21:00 99.0 90 24 111/54 95 Mechanical Ventilator 45 99.0 08/03/17 21:00 24 5/9/18 20:30 88 29 100/48 90 Mechanical Ventilator 45 08/03/17 20:00 100.0 95 35 104/66 92 Mechanical Ventilator 45 100.0 08/03/17 20:00 33 08/03/17 20:00 45 08/03/17 19:37 96 08/03/17 19:30 94 26 115/57 95 Mechanical Ventilator 35 08/03/17 19:01 92 33 45 08/03/17 19:00 90 27 117/57 98 Mechanical Ventilator 35 08/03/17 18:30 90 27 110/66 98 Mechanical Ventilator 35 08/03/17 18:00 91 27 100/61 98 Mechanical Ventilator 35 08/03/17 17:30 90 27 115/56 98 Mechanical Ventilator 35 08/03/17 17:00 88 27 97/45 96 Mechanical Ventilator 35 08/03/17 16:49 91 34 45 08/03/17 16:30 91 20 129/53 100 Mechanical Ventilator 35 08/03/17 16:00 35 08/03/17 16:00 91 08/03/17 16:00 99.0 89 20 107/42 99 Mechanical Ventilator 35 99.0 08/03/17 15:30 90 20 111/56 96 Mechanical Ventilator 35 08/03/17 15:13 90 32 35 08/03/17 15:00 90 20 113/48 100 Mechanical Ventilator 35 08/03/17 14:30 87 18 106/54 97 Mechanical Ventilator 35 08/03/17 14:00 84 16 99/43 98 Mechanical Ventilator 35 Height (Feet): 5 Height (Inches): 5.00 Weight (Pounds): 322 General Appearance: WD/WN, no acute distress HEENT: normocephalic, atraumatic, anicteric, mucous membranes moist, PERRL Respiratory/Chest: chest wall non-tender, normal breath sounds, no respiratory distress, no accessory muscle use, decreased breath sounds, crackles/rales Cardiovascular: normal peripheral pulses, normal rate, regular rhythm, no gallop/murmur, no JVD Abdomen: normal bowel sounds, no organomegaly, non distended, no mass, no scars , hypoactive bowel sounds, tender - at the left lower side of the abdomen Extremities: no cyanosis, no clubbing Skin: no rash, no lesions, other - red erythematous and tender on the left lower abdomen Neurologic/Psychiatric: alert, responsive Lymphatic: no neck adenopathy, no groin adenopathy Musculoskeletal: normal muscle bulk Microbiology Date/Time Source Procedure Growth Status 08/02/17 16:30 Blood Blood Culture - Preliminary NO GROWTH AFTER 24 HOURS Resulted 08/02/17 16:30 Blood Blood Culture - Preliminary NO GROWTH AFTER 24 HOURS Resulted Laboratory Tests Test 08/04/17 04:05 08/04/17 09:05 08/04/17 12:15 White Blood Count 19.6 K/UL (4.8-10.8) H Red Blood Count 3.35 M/UL (4.20-5.40) L Hemoglobin 6.9 G/DL (12.0-16.0) *L Hematocrit 22.6 % (37.0-47.0) L Mean Corpuscular Volume 67 FL (80-99) L Mean Corpuscular Hemoglobin 20.6 PG (27.0-31.0) L Mean Corpuscular Hemoglobin Concent 30.5 G/DL (32.0-36.0) L Red Cell Distribution Width 15.6 % (11.6-14.8) H Platelet Count 255 K/UL (150-450) Mean Platelet Volume 5.8 FL (6.5-10.1) L Neutrophils (%) (Auto) % (45.0-75.0) Lymphocytes (%) (Auto) % (20.0-45.0) Monocytes (%) (Auto) % (1.0-10.0) Eosinophils (%) (Auto) % (0.0-3.0) Basophils (%) (Auto) % (0.0-2.0) Differential Total Cells Counted 100 Neutrophils % (Manual) 78 % (45-75) H Lymphocytes % (Manual) 13 % (20-45) L Monocytes % (Manual) 7 % (1-10) Eosinophils % (Manual) 2 % (0-3) Basophils % (Manual) 0 % (0-2) Band Neutrophils 0 % (0-8) Platelet Estimate Adequate Platelet Morphology Normal Hypochromasia 1+ Anisocytosis 1+ Microcytosis 2+ Sodium Level 139 MMOL/L (136-145) Potassium Level 3.6 MMOL/L (3.5-5.1) Chloride Level 106 MMOL/L (98-107) Carbon Dioxide Level 17 MMOL/L (21-32) L Anion Gap 16 mmol/L (5-15) H Blood Urea Nitrogen 61 mg/dL (7-18) H Creatinine 5.7 MG/DL (0.55-1.30) H Estimat Glomerular Filtration Rate 7.9 mL/min (>60) Glucose Level 213 MG/DL (74-106) H Calcium Level 8.3 MG/DL (8.5-10.1) L Arterial Blood pH 7.407 (7.350-7.450) 7.502 (7.350-7.450) Arterial Blood Partial Pressure CO2 29.5 mmHg (35.0-45.0) L 24.7 mmHg (35.0-45.0) *L Arterial Blood Partial Pressure O2 138.4 mmHg (75.0-100.0) H 147.0 mmHg (75.0-100.0) H Arterial Blood HCO3 18.2 mmol/L (22.0-26.0) L 18.9 mmol/L (22.0-26.0) L Arterial Blood Oxygen Saturation 98.2 % (92.0-98.0) H 98.3 % (92.0-98.0) H Arterial Blood Base Excess -5.8 -3.7 Ravi Test Positive Positive Current Medications Medications (Trade) Dose Ordered Sig/Tommy Route PRN Reason Start Time Stop Time Status Last Admin Dose Admin Acetaminophen (Tylenol) 650 mg EVERY 6 HOURS PRN RECTAL Mild Pain (Pain Scale 1-3) 07/30/17 17:54 08/29/17 17:53 08/01/17 14:43 Chlorhexidine Gluconate (Idalia-Hex 2%) 1 applic DAILY@2000 TOPIC 07/30/17 20:00 08/29/17 19:59 08/03/17 20:00 Dextrose (Dextrose 50%) 25 ml STAT PRN IV Hypoglycemia 08/03/17 13:15 09/02/17 13:14 Dextrose (Dextrose 50%) 50 ml STAT PRN IV Hypoglycemia 08/03/17 13:15 09/02/17 13:14 Dextrose/Sodium Chloride 1,000 ml @ 75 mls/hr [id number] IV 08/01/17 09:00 08/31/17 08:59 08/04/17 04:10 Fentanyl Citrate 1000 mcg/Sodium Chloride 100 ml @ 0 mls/hr Q24H IV 07/31/17 18:30 08/07/17 18:29 08/03/17 23:03 Heparin Sodium (Porcine) (Heparin 5000 units/ml) 5,000 units EVERY 8 HOURS SUBQ 07/29/17 22:00 08/28/17 21:59 08/03/17 22:04 Insulin Aspart (NovoLOG) 6 units NOVOTIAC SUBQ 08/03/17 16:50 09/02/17 16:49 08/04/17 06:10 Insulin Aspart (NovoLOG) Resistance sliding sc... BEFORE MEALS AND HS SUBQ 08/03/17 16:30 09/02/17 16:29 08/04/17 11:38 Linezolid 300 ml @ 300 mls/hr Q12HR IVPB 08/02/17 13:30 08/09/17 13:29 08/04/17 09:19 Meropenem 1 gm/ Sodium Chloride 110 ml @ 220 mls/hr Q12HR IVPB 08/02/17 14:00 08/07/17 13:59 08/04/17 09:18 Norepinephrine Bitartrate 8 mg/ Dextrose 250 ml @ 0 mls/hr Q24H IV 07/30/17 08:00 08/29/17 07:59 08/03/17 00:44 Pantoprazole (Protonix) 40 mg DAILY IVP 07/30/17 09:00 08/29/17 08:59 08/04/17 09:18 Silver Sulfadiazine (Silvadene Cream 25gm) 1 applic DAILY TOPIC 08/01/17 10:30 08/31/17 10:29 08/04/17 09:19 Johanny Colbert M.D. August 04, 2017 14:00
[2017-08-04] MEDS: Acetaminophen 650 MG SUPP RECTAL PRN (16:04)
--- NOTE | 2017-08-04 16:29 | Cardiac Electrophysiology PN ---
Assessment/Plan Assessment/Plan 1. Septic shock due to diabetic ketoacidosis. On d5w NS at 75 cc/hr On broad-spectrum IV antibiotic . Off pressors x 2 days Echocardiogram showed EF 60% .Rule out for [place] 2. Diabetic ketoacidosis, on IV fluids and insulin. 3. Severe hyponatremia, sodium 118, likely due to diabetic ketoacidosis.Improved. 4. White count of 36,000, abdominal cellulitis, likely because of the patient's DKA. IV antibiotic per Dr. Colbert. Vancomycin and Zosyn 5. Morbid obesity. 6. Respiratory failure, currently on the ventilator. 7. ARf now on HD 8. anemia hb 6.9. Transfuse DW RN Subjective Subjective In ICU, alert on vent and off pressors since yesterday. Had HD via LFV Manjinder catheter again. No arrhythmias except occ PVCs. Objective Last 24 Hour Vital Signs Date Time Temp Pulse Resp B/P (MAP) Pulse Ox O2 Delivery O2 Flow Rate FiO2 08/04/17 16:04 99.5 08/04/17 15:03 85 30 30 08/04/17 14:30 85 26 113/52 100 Mechanical Ventilator 30 08/04/17 14:00 84 25 119/50 100 Mechanical Ventilator 30 08/04/17 13:45 Mechanical Ventilator 30 08/04/17 13:30 82 27 134/58 100 Mechanical Ventilator 30 08/04/17 13:05 30 08/04/17 13:00 81 25 117/53 100 Mechanical Ventilator 30 08/04/17 12:52 86 30 30 08/04/17 12:30 80 20 108/50 100 Mechanical Ventilator 40 08/04/17 12:00 81 08/04/17 12:00 81 28 106/46 100 Mechanical Ventilator 40 08/04/17 11:30 86 24 103/44 100 Mechanical Ventilator 40 08/04/17 11:00 80 28 115/46 100 Mechanical Ventilator 40 08/04/17 11:00 29 08/04/17 10:49 90 34 40 08/04/17 10:40 Mechanical Ventilator 40 08/04/17 10:30 99.0 89 30 117/46 100 Mechanical Ventilator 40 99.0 08/04/17 10:10 40 08/04/17 10:00 80 28 120/46 100 Mechanical Ventilator 40 08/04/17 10:00 29 08/04/17 09:30 84 27 118/44 100 Mechanical Ventilator 40 08/04/17 09:18 28 08/04/17 09:00 85 28 119/55 100 Mechanical Ventilator 40 08/04/17 09:00 45 08/04/17 08:55 86 31 40 08/04/17 08:30 84 28 125/56 100 Mechanical Ventilator 40 08/04/17 08:00 84 29 119/53 100 Mechanical Ventilator 40 08/04/17 08:00 28 08/04/17 08:00 112/52 08/04/17 08:00 80 08/04/17 07:30 99.0 84 29 117/49 100 Mechanical Ventilator 40 99.0 08/04/17 07:00 88 30 101/48 100 Mechanical Ventilator 40 08/04/17 07:00 28 08/04/17 06:46 89 33 40 08/04/17 06:30 89 29 104/50 100 Mechanical Ventilator 40 08/04/17 06:00 29 08/04/17 06:00 86 29 107/54 100 Mechanical Ventilator 40 08/04/17 05:30 86 30 104/52 100 Mechanical Ventilator 40 08/04/17 05:00 87 31 122/58 100 Mechanical Ventilator 45 08/04/17 05:00 31 08/04/17 04:57 87 32 40 08/04/17 04:30 84 28 102/48 100 Mechanical Ventilator 45 08/04/17 04:00 45 08/04/17 04:00 99.1 81 27 96/45 100 Mechanical Ventilator 45 99.1 08/04/17 04:00 30 08/04/17 03:30 82 27 98/47 100 Mechanical Ventilator 45 08/04/17 03:26 83 27 40 08/04/17 03:09 84 08/04/17 03:00 82 28 109/53 100 Mechanical Ventilator 45 08/04/17 03:00 27 08/04/17 02:30 77 27 96/46 100 Mechanical Ventilator 45 08/04/17 02:00 78 27 85/40 100 Mechanical Ventilator 45 08/04/17 02:00 27 08/04/17 01:30 81 27 95/47 100 Mechanical Ventilator 45 08/04/17 01:00 28 08/04/17 01:00 87 28 106/52 100 Mechanical Ventilator 45 08/04/17 00:47 88 27 40 08/04/17 00:30 85 26 111/54 100 Mechanical Ventilator 45 08/04/17 00:00 99.0 84 26 107/55 100 Mechanical Ventilator 45 99.0 08/04/17 00:00 26 08/03/17 23:38 81 28 40 08/03/17 23:30 81 25 111/56 100 Mechanical Ventilator 45 08/03/17 23:15 79 08/03/17 23:03 20 08/03/17 23:00 24 08/03/17 23:00 83 18 104/49 100 Mechanical Ventilator 45 08/03/17 22:30 83 18 103/48 100 Mechanical Ventilator 45 08/03/17 22:00 83 22 103/47 100 Mechanical Ventilator 45 08/03/17 22:00 24 08/03/17 21:30 85 17 113/53 91 Mechanical Ventilator 45 08/03/17 21:25 84 29 45 08/03/17 21:00 99.0 90 24 111/54 95 Mechanical Ventilator 45 99.0 08/03/17 21:00 24 08/03/17 20:30 88 29 100/48 90 Mechanical Ventilator 45 08/03/17 20:00 100.0 95 35 104/66 92 Mechanical Ventilator 45 100.0 08/03/17 20:00 33 08/03/17 20:00 45 08/03/17 19:37 96 08/03/17 19:30 94 26 115/57 95 Mechanical Ventilator 35 08/03/17 19:01 92 33 45 08/03/17 19:00 90 27 117/57 98 Mechanical Ventilator 35 08/03/17 18:30 90 27 110/66 98 Mechanical Ventilator 35 08/03/17 18:00 91 27 100/61 98 Mechanical Ventilator 35 08/03/17 17:30 90 27 115/56 98 Mechanical Ventilator 35 08/03/17 17:00 88 27 97/45 96 Mechanical Ventilator 35 08/03/17 16:49 91 34 45 08/03/17 16:30 91 20 129/53 100 Mechanical Ventilator 35 Intake and Output 08/03/17 08/04/17 19:00 07:00 Intake Total 1525.0 ml 1379 ml Output Total 145 ml 330 ml Balance 1380.0 ml 1049 ml Intake Oral 0 ml 0 ml IV Total 1525.0 ml 1379 ml Output Urine Total 145 ml 330 ml # Bowel Movements 1 Laboratory Tests Test 08/04/17 04:05 08/04/17 09:05 08/04/17 12:15 White Blood Count 19.6 K/UL (4.8-10.8) H Red Blood Count 3.35 M/UL (4.20-5.40) L Hemoglobin 6.9 G/DL (12.0-16.0) *L Hematocrit 22.6 % (37.0-47.0) L Mean Corpuscular Volume 67 FL (80-99) L Mean Corpuscular Hemoglobin 20.6 PG (27.0-31.0) L Mean Corpuscular Hemoglobin Concent 30.5 G/DL (32.0-36.0) L Red Cell Distribution Width 15.6 % (11.6-14.8) H Platelet Count 255 K/UL (150-450) Mean Platelet Volume 5.8 FL (6.5-10.1) L Neutrophils (%) (Auto) % (45.0-75.0) Lymphocytes (%) (Auto) % (20.0-45.0) Monocytes (%) (Auto) % (1.0-10.0) Eosinophils (%) (Auto) % (0.0-3.0) Basophils (%) (Auto) % (0.0-2.0) Differential Total Cells Counted 100 Neutrophils % (Manual) 78 % (45-75) H Lymphocytes % (Manual) 13 % (20-45) L Monocytes % (Manual) 7 % (1-10) Eosinophils % (Manual) 2 % (0-3) Basophils % (Manual) 0 % (0-2) Band Neutrophils 0 % (0-8) Platelet Estimate Adequate Platelet Morphology Normal Hypochromasia 1+ Anisocytosis 1+ Microcytosis 2+ Sodium Level 139 MMOL/L (136-145) Potassium Level 3.6 MMOL/L (3.5-5.1) Chloride Level 106 MMOL/L (98-107) Carbon Dioxide Level 17 MMOL/L (21-32) L Anion Gap 16 mmol/L (5-15) H Blood Urea Nitrogen 61 mg/dL (7-18) H Creatinine 5.7 MG/DL (0.55-1.30) H Estimat Glomerular Filtration Rate 7.9 mL/min (>60) Glucose Level 213 MG/DL (74-106) H Calcium Level 8.3 MG/DL (8.5-10.1) L Arterial Blood pH 7.407 (7.350-7.450) 7.502 (7.350-7.450) Arterial Blood Partial Pressure CO2 29.5 mmHg (35.0-45.0) L 24.7 mmHg (35.0-45.0) *L Arterial Blood Partial Pressure O2 138.4 mmHg (75.0-100.0) H 147.0 mmHg (75.0-100.0) H Arterial Blood HCO3 18.2 mmol/L (22.0-26.0) L 18.9 mmol/L (22.0-26.0) L Arterial Blood Oxygen Saturation 98.2 % (92.0-98.0) H 98.3 % (92.0-98.0) H Arterial Blood Base Excess -5.8 -3.7 Ravi Test Positive Positive Microbiology Date/Time Source Procedure Growth Status 08/02/17 16:30 Blood Blood Culture - Preliminary NO GROWTH AFTER 24 HOURS Resulted 08/02/17 16:30 Blood Blood Culture - Preliminary NO GROWTH AFTER 24 HOURS Resulted Objective HEAD AND NECK: Shows no JVD, orally intubated. LUNGS: Coarse rhonchi. CARDIOVASCULAR: Regular S1 and S2 with no gallop. ABDOMEN: Cellulitis of the lower abdomen and erythema. EXTREMITIES: There is 1+ pitting edema.Adama Tracey MD August 04, 2017 16:29
--- NOTE | 2017-08-04 16:45 | Diagnostic Imaging Report ---
Indication: NG tube placement Comparison: None Single view of the abdomen obtained Findings: Patient is rotated. The NG tube is in good position well situated in the stomach. IMPRESSION: NG tube in good position
--- NOTE | 2017-08-04 17:02 | General Surgery Progress Note ---
General Surgery-Progress Note Subjective Symptoms: improved Objective Last 24 Hour Vital Signs Date Time Temp Pulse Resp B/P (MAP) Pulse Ox O2 Delivery O2 Flow Rate FiO2 08/04/17 16:04 99.5 08/04/17 15:03 85 30 30 08/04/17 14:30 85 26 113/52 100 Mechanical Ventilator 30 08/04/17 14:00 84 25 119/50 100 Mechanical Ventilator 30 08/04/17 13:45 Mechanical Ventilator 30 08/04/17 13:30 82 27 134/58 100 Mechanical Ventilator 30 08/04/17 13:05 30 08/04/17 13:00 81 25 117/53 100 Mechanical Ventilator 30 08/04/17 12:52 86 30 30 08/04/17 12:30 80 20 108/50 100 Mechanical Ventilator 40 08/04/17 12:00 81 08/04/17 12:00 81 28 106/46 100 Mechanical Ventilator 40 08/04/17 11:30 86 24 103/44 100 Mechanical Ventilator 40 08/04/17 11:00 80 28 115/46 100 Mechanical Ventilator 40 08/04/17 11:00 29 08/04/17 10:49 90 34 40 08/04/17 10:40 Mechanical Ventilator 40 08/04/17 10:30 99.0 89 30 117/46 100 Mechanical Ventilator 40 99.0 08/04/17 10:10 40 08/04/17 10:00 80 28 120/46 100 Mechanical Ventilator 40 08/04/17 10:00 29 08/04/17 09:30 84 27 118/44 100 Mechanical Ventilator 40 08/04/17 09:18 28 08/04/17 09:00 85 28 119/55 100 Mechanical Ventilator 40 08/04/17 09:00 45 08/04/17 08:55 86 31 40 08/04/17 08:30 84 28 125/56 100 Mechanical Ventilator 40 08/04/17 08:00 84 29 119/53 100 Mechanical Ventilator 40 08/04/17 08:00 28 08/04/17 08:00 112/52 08/04/17 08:00 80 08/04/17 07:30 99.0 84 29 117/49 100 Mechanical Ventilator 40 99.0 08/04/17 07:00 88 30 101/48 100 Mechanical Ventilator 40 08/04/17 07:00 28 08/04/17 06:46 89 33 40 08/04/17 06:30 89 29 104/50 100 Mechanical Ventilator 40 08/04/17 06:00 29 08/04/17 06:00 86 29 107/54 100 Mechanical Ventilator 40 08/04/17 05:30 86 30 104/52 100 Mechanical Ventilator 40 08/04/17 05:00 87 31 122/58 100 Mechanical Ventilator 45 08/04/17 05:00 31 08/04/17 04:57 87 32 40 08/04/17 04:30 84 28 102/48 100 Mechanical Ventilator 45 08/04/17 04:00 45 08/04/17 04:00 99.1 81 27 96/45 100 Mechanical Ventilator 45 99.1 08/04/17 04:00 30 08/04/17 03:30 82 27 98/47 100 Mechanical Ventilator 45 08/04/17 03:26 83 27 40 08/04/17 03:09 84 08/04/17 03:00 82 28 109/53 100 Mechanical Ventilator 45 08/04/17 03:00 27 08/04/17 02:30 77 27 96/46 100 Mechanical Ventilator 45 08/04/17 02:00 78 27 85/40 100 Mechanical Ventilator 45 08/04/17 02:00 27 08/04/17 01:30 81 27 95/47 100 Mechanical Ventilator 45 08/04/17 01:00 28 08/04/17 01:00 87 28 106/52 100 Mechanical Ventilator 45 08/04/17 00:47 88 27 40 08/04/17 00:30 85 26 111/54 100 Mechanical Ventilator 45 08/04/17 00:00 99.0 84 26 107/55 100 Mechanical Ventilator 45 99.0 08/04/17 00:00 26 08/03/17 23:38 81 28 40 08/03/17 23:30 81 25 111/56 100 Mechanical Ventilator 45 08/03/17 23:15 79 08/03/17 23:03 20 08/03/17 23:00 24 08/03/17 23:00 83 18 104/49 100 Mechanical Ventilator 45 08/03/17 22:30 83 18 103/48 100 Mechanical Ventilator 45 08/03/17 22:00 83 22 103/47 100 Mechanical Ventilator 45 08/03/17 22:00 24 08/03/17 21:30 85 17 113/53 91 Mechanical Ventilator 45 08/03/17 21:25 84 29 45 08/03/17 21:00 99.0 90 24 111/54 95 Mechanical Ventilator 45 99.0 08/03/17 21:00 24 08/03/17 20:30 88 29 100/48 90 Mechanical Ventilator 45 08/03/17 20:00 100.0 95 35 104/66 92 Mechanical Ventilator 45 100.0 08/03/17 20:00 33 08/03/17 20:00 45 08/03/17 19:37 96 08/03/17 19:30 94 26 115/57 95 Mechanical Ventilator 35 08/03/17 19:01 92 33 45 08/03/17 19:00 90 27 117/57 98 Mechanical Ventilator 35 08/03/17 18:30 90 27 110/66 98 Mechanical Ventilator 35 08/03/17 18:00 91 27 100/61 98 Mechanical Ventilator 35 08/03/17 17:30 90 27 115/56 98 Mechanical Ventilator 35 I&O Intake and Output 08/03/17 08/04/17 19:00 07:00 Intake Total 1525.0 ml 1379 ml Output Total 145 ml 330 ml Balance 1380.0 ml 1049 ml Intake Oral 0 ml 0 ml IV Total 1525.0 ml 1379 ml Output Urine Total 145 ml 330 ml # Bowel Movements 1 Respiratory: clear Abdomen: other - obese soft erythema has reduced Laboratory Tests Test 08/04/17 04:05 08/04/17 09:05 08/04/17 12:15 White Blood Count 19.6 K/UL (4.8-10.8) H Red Blood Count 3.35 M/UL (4.20-5.40) L Hemoglobin 6.9 G/DL (12.0-16.0) *L Hematocrit 22.6 % (37.0-47.0) L Mean Corpuscular Volume 67 FL (80-99) L Mean Corpuscular Hemoglobin 20.6 PG (27.0-31.0) L Mean Corpuscular Hemoglobin Concent 30.5 G/DL (32.0-36.0) L Red Cell Distribution Width 15.6 % (11.6-14.8) H Platelet Count 255 K/UL (150-450) Mean Platelet Volume 5.8 FL (6.5-10.1) L Neutrophils (%) (Auto) % (45.0-75.0) Lymphocytes (%) (Auto) % (20.0-45.0) Monocytes (%) (Auto) % (1.0-10.0) Eosinophils (%) (Auto) % (0.0-3.0) Basophils (%) (Auto) % (0.0-2.0) Differential Total Cells Counted 100 Neutrophils % (Manual) 78 % (45-75) H Lymphocytes % (Manual) 13 % (20-45) L Monocytes % (Manual) 7 % (1-10) Eosinophils % (Manual) 2 % (0-3) Basophils % (Manual) 0 % (0-2) Band Neutrophils 0 % (0-8) Platelet Estimate Adequate Platelet Morphology Normal Hypochromasia 1+ Anisocytosis 1+ Microcytosis 2+ Sodium Level 139 MMOL/L (136-145) Potassium Level 3.6 MMOL/L (3.5-5.1) Chloride Level 106 MMOL/L (98-107) Carbon Dioxide Level 17 MMOL/L (21-32) L Anion Gap 16 mmol/L (5-15) H Blood Urea Nitrogen 61 mg/dL (7-18) H Creatinine 5.7 MG/DL (0.55-1.30) H Estimat Glomerular Filtration Rate 7.9 mL/min (>60) Glucose Level 213 MG/DL (74-106) H Calcium Level 8.3 MG/DL (8.5-10.1) L Arterial Blood pH 7.407 (7.350-7.450) 7.502 (7.350-7.450) Arterial Blood Partial Pressure CO2 29.5 mmHg (35.0-45.0) L 24.7 mmHg (35.0-45.0) *L Arterial Blood Partial Pressure O2 138.4 mmHg (75.0-100.0) H 147.0 mmHg (75.0-100.0) H Arterial Blood HCO3 18.2 mmol/L (22.0-26.0) L 18.9 mmol/L (22.0-26.0) L Arterial Blood Oxygen Saturation 98.2 % (92.0-98.0) H 98.3 % (92.0-98.0) H Arterial Blood Base Excess -5.8 -3.7 Ravi Test Positive Positive Assessment Additional Comments cellulitis abdominal wall Plan Additional Comments continue current treatment Moshfegh,Moussa MD August 04, 2017 17:02
[2017-08-04] MEDS: Dyna-Hex 2% Top Sol 2oz TOPIC SCH (19:40)
--- NOTE | 2017-08-04 19:43 | General Progress Note ---
Assessment/Plan Problem List: (1) Cellulitis of abdominal wall ICD Codes: L03.311 - Cellulitis of abdominal wall SNOMED: 97920525 (2) Acute respiratory failure ICD Codes: J96.00 - Acute respiratory failure, unspecified whether with hypoxia or hypercapnia SNOMED: 55868780 (3) New onset type 1 diabetes mellitus, uncontrolled ICD Codes: E10.65 - Type 1 diabetes mellitus with hyperglycemia SNOMED: 566468992 (4) Necrotizing fasciitis ICD Codes: M72.6 - Necrotizing fasciitis SNOMED: 93303040 (5) DKA (diabetic ketoacidoses) ICD Codes: E13.10 - Other specified diabetes mellitus with ketoacidosis without coma SNOMED: 47085586, 511595352 Assessment/Plan remained intubated in ICU DKA resolved Insulin gtt stopped Novolog 6 units every 4 hours NISS every 4 hours Subjective ROS Limited/Unobtainable: Yes Allergies: Coded Allergies: PENICILLINS (Verified Allergy, Unknown, 07/30/17) According to mother, the patient is allergic to Penicillins Subjective awake - intubated mother is at bedside Objective Last 24 Hour Vital Signs Date Time Temp Pulse Resp B/P (MAP) Pulse Ox O2 Delivery O2 Flow Rate FiO2 08/04/17 19:18 87 28 30 08/04/17 19:00 88 28 105/46 100 Mechanical Ventilator 30 08/04/17 18:30 83 27 105/45 100 Mechanical Ventilator 30 08/04/17 18:15 99.2 08/04/17 18:00 86 27 121/53 100 Mechanical Ventilator 30 08/04/17 18:00 16 08/04/17 17:30 86 26 126/52 99 Mechanical Ventilator 30 08/04/17 17:30 92 30 126/53 100 Mechanical Ventilator 30 08/04/17 17:23 90 29 30 08/04/17 17:00 92 30 126/53 100 Mechanical Ventilator 30 08/04/17 17:00 18 08/04/17 16:30 93 30 125/57 100 Mechanical Ventilator 30 08/04/17 16:04 99.5 08/04/17 16:00 94 26 123/57 100 Mechanical Ventilator 30 08/04/17 16:00 82 08/04/17 16:00 16 08/04/17 16:00 30 08/04/17 15:30 90 27 116/48 100 Mechanical Ventilator 30 08/04/17 15:03 85 30 30 08/04/17 15:00 99.2 88 26 113/61 100 Mechanical Ventilator 30 99.2 08/04/17 15:00 19 08/04/17 14:50 98.7 83 26 116/60 100 Mechanical Ventilator 30 98.7 08/04/17 14:30 85 26 113/52 100 Mechanical Ventilator 30 08/04/17 14:00 84 25 119/50 100 Mechanical Ventilator 30 08/04/17 14:00 18 08/04/17 13:45 Mechanical Ventilator 30 08/04/17 13:30 82 27 134/58 100 Mechanical Ventilator 30 08/04/17 13:05 30 08/04/17 13:00 18 08/04/17 13:00 81 25 117/53 100 Mechanical Ventilator 30 08/04/17 12:52 86 30 30 08/04/17 12:30 80 20 108/50 100 Mechanical Ventilator 40 08/04/17 12:00 20 08/04/17 12:00 81 08/04/17 12:00 81 28 106/46 100 Mechanical Ventilator 40 08/04/17 11:30 86 24 103/44 100 Mechanical Ventilator 40 08/04/17 11:00 80 28 115/46 100 Mechanical Ventilator 40 08/04/17 11:00 29 08/04/17 10:49 90 34 40 08/04/17 10:40 Mechanical Ventilator 40 08/04/17 10:30 99.0 89 30 117/46 100 Mechanical Ventilator 40 99.0 08/04/17 10:10 40 08/04/17 10:00 80 28 120/46 100 Mechanical Ventilator 40 08/04/17 10:00 29 08/04/17 09:30 84 27 118/44 100 Mechanical Ventilator 40 08/04/17 09:18 28 08/04/17 09:00 85 28 119/55 100 Mechanical Ventilator 40 08/04/17 09:00 45 08/04/17 08:55 86 31 40 08/04/17 08:30 84 28 125/56 100 Mechanical Ventilator 40 08/04/17 08:00 84 29 119/53 100 Mechanical Ventilator 40 08/04/17 08:00 28 08/04/17 08:00 112/52 08/04/17 08:00 80 08/04/17 07:30 99.0 84 29 117/49 100 Mechanical Ventilator 40 99.0 08/04/17 07:00 88 30 101/48 100 Mechanical Ventilator 40 08/04/17 07:00 28 08/04/17 06:46 89 33 40 08/04/17 06:30 89 29 104/50 100 Mechanical Ventilator 40 08/04/17 06:00 29 08/04/17 06:00 86 29 107/54 100 Mechanical Ventilator 40 08/04/17 05:30 86 30 104/52 100 Mechanical Ventilator 40 08/04/17 05:00 87 31 122/58 100 Mechanical Ventilator 45 08/04/17 05:00 31 08/04/17 04:57 87 32 40 08/04/17 04:30 84 28 102/48 100 Mechanical Ventilator 45 08/04/17 04:00 45 08/04/17 04:00 99.1 81 27 96/45 100 Mechanical Ventilator 45 99.1 08/04/17 04:00 30 08/04/17 03:30 82 27 98/47 100 Mechanical Ventilator 45 08/04/17 03:26 83 27 40 08/04/17 03:09 84 08/04/17 03:00 82 28 109/53 100 Mechanical Ventilator 45 08/04/17 03:00 27 08/04/17 02:30 77 27 96/46 100 Mechanical Ventilator 45 08/04/17 02:00 78 27 85/40 100 Mechanical Ventilator 45 08/04/17 02:00 27 08/04/17 01:30 81 27 95/47 100 Mechanical Ventilator 45 08/04/17 01:00 28 08/04/17 01:00 87 28 106/52 100 Mechanical Ventilator 45 08/04/17 00:47 88 27 40 08/04/17 00:30 85 26 111/54 100 Mechanical Ventilator 45 08/04/17 00:00 99.0 84 26 107/55 100 Mechanical Ventilator 45 99.0 08/04/17 00:00 26 08/03/17 23:38 81 28 40 08/03/17 23:30 81 25 111/56 100 Mechanical Ventilator 45 08/03/17 23:15 79 08/03/17 23:03 20 08/03/17 23:00 24 08/03/17 23:00 83 18 104/49 100 Mechanical Ventilator 45 08/03/17 22:30 83 18 103/48 100 Mechanical Ventilator 45 08/03/17 22:00 83 22 103/47 100 Mechanical Ventilator 45 08/03/17 22:00 24 08/03/17 21:30 85 17 113/53 91 Mechanical Ventilator 45 08/03/17 21:25 84 29 45 08/03/17 21:00 99.0 90 24 111/54 95 Mechanical Ventilator 45 99.0 08/03/17 21:00 24 08/03/17 20:30 88 29 100/48 90 Mechanical Ventilator 45 08/03/17 20:00 100.0 95 35 104/66 92 Mechanical Ventilator 45 100.0 08/03/17 20:00 33 08/03/17 20:00 45 Intake and Output 08/03/17 08/04/17 19:00 07:00 Intake Total 1525.0 ml 1379 ml Output Total 145 ml 330 ml Balance 1380.0 ml 1049 ml Intake Oral 0 ml 0 ml IV Total 1525.0 ml 1379 ml Output Urine Total 145 ml 330 ml # Bowel Movements 1 Laboratory Tests 08/04/17 04:05: White Blood Count 19.6H, Red Blood Count 3.35L, Hemoglobin 6.9*L, Hematocrit 22.6L, Mean Corpuscular Volume 67L, Mean Corpuscular Hemoglobin 20.6L, Mean Corpuscular Hemoglobin Concent 30.5L, Red Cell Distribution Width 15.6H, Platelet Count 255, Mean Platelet Volume 5.8L, Neutrophils (%) (Auto) , Lymphocytes (%) (Auto) , Monocytes (%) (Auto) , Eosinophils (%) (Auto) , Basophils (%) (Auto) , Differential Total Cells Counted 100, Neutrophils % ( Manual) 78H, Lymphocytes % (Manual) 13L, Monocytes % (Manual) 7, Eosinophils % ( Manual) 2, Basophils % (Manual) 0, Band Neutrophils 0, Platelet Estimate Adequate, Platelet Morphology Normal, Hypochromasia 1+, Anisocytosis 1+, Microcytosis 2+, Sodium Level 139, Potassium Level 3.6, Chloride Level 106, Carbon Dioxide Level 17L, Anion Gap 16H, Blood Urea Nitrogen 61H, Creatinine 5.7H, Estimat Glomerular Filtration Rate 7.9, Glucose Level 213H, Calcium Level 8.3L 08/04/17 09:05: Arterial Blood pH 7.407, Arterial Blood Partial Pressure CO2 29.5L, Arterial Blood Partial Pressure O2 138.4H, Arterial Blood HCO3 18.2L, Arterial Blood Oxygen Saturation 98.2H, Arterial Blood Base Excess -5.8, Ravi Test Positive 08/04/17 12:15: Arterial Blood pH 7.502H, Arterial Blood Partial Pressure CO2 24.7*L, Arterial Blood Partial Pressure O2 147.0H, Arterial Blood HCO3 18.9L, Arterial Blood Oxygen Saturation 98.3H, Arterial Blood Base Excess -3.7, Ravi Test Positive Height (Feet): 5 Height (Inches): 5.00 Weight (Pounds): 322 General Appearance: no apparent distress Neck: normal alignment Cardiovascular: normal rate Respiratory/Chest: lungs clear Abdomen: normal bowel sounds Edema: no edema noted Arm (L), no edema noted Arm (R), no edema noted Leg (L), no edema noted Leg (R), no edema noted Pedal (L), no edema noted Pedal (R), no edema noted Generalized Objective Current Medications Medications (Trade) Dose Ordered Sig/Tommy Route PRN Reason Start Time Stop Time Status Last Admin Dose Admin Acetaminophen (Tylenol) 650 mg EVERY 6 HOURS PRN RECTAL Mild Pain (Pain Scale 1-3) 07/30/17 17:54 08/29/17 17:53 08/04/17 16:04 Chlorhexidine Gluconate ([place]-Hex 2%) 1 applic DAILY@2000 TOPIC 07/30/17 20:00 08/29/17 19:59 08/03/17 20:00 Dextrose (Dextrose 50%) 25 ml STAT PRN IV Hypoglycemia 08/03/17 13:15 09/02/17 13:14 Dextrose (Dextrose 50%) 50 ml STAT PRN IV Hypoglycemia 08/03/17 13:15 09/02/17 13:14 Dextrose/Sodium Chloride 1,000 ml @ 75 mls/hr [id number] IV 08/01/17 09:00 08/31/17 08:59 08/04/17 18:44 Fentanyl Citrate 1000 mcg/Sodium Chloride 100 ml @ 0 mls/hr Q24H IV 07/31/17 18:30 08/07/17 18:29 08/03/17 23:03 Heparin Sodium (Porcine) (Heparin 5000 units/ml) 5,000 units EVERY 8 HOURS SUBQ 07/29/17 22:00 08/28/17 21:59 08/04/17 15:53 Insulin Aspart (NovoLOG) 6 units NOVOTIAC SUBQ 08/03/17 16:50 09/02/17 16:49 08/04/17 18:14 Insulin Aspart (NovoLOG) Resistance sliding sc... BEFORE MEALS AND HS SUBQ 08/03/17 16:30 09/02/17 16:29 08/04/17 18:13 Linezolid 300 ml @ 300 mls/hr Q12HR IVPB 08/02/17 13:30 08/09/17 13:29 08/04/17 09:19 Meropenem 1 gm/ Sodium Chloride 110 ml @ 220 mls/hr Q12HR IVPB 08/02/17 14:00 08/04/17 23:59 08/04/17 09:18 Meropenem 500 mg/ Sodium Chloride 110 ml @ 220 mls/hr Q12HR IVPB 08/05/17 09:00 08/10/17 08:59 Norepinephrine Bitartrate 8 mg/ Dextrose 250 ml @ 0 mls/hr Q24H IV 07/30/17 08:00 08/29/17 07:59 08/03/17 00:44 Pantoprazole (Protonix) 40 mg DAILY IVP 07/30/17 09:00 08/29/17 08:59 08/04/17 09:18 Silver Sulfadiazine (Silvadene Cream 25gm) 1 applic DAILY TOPIC 08/01/17 10:30 08/31/17 10:29 08/04/17 09:19 Item Value Date Time Bedside Blood Glucose 194 mg/dl H 08/04/17 1814 Bedside Blood Glucose 218 mg/dl H 08/04/17 1139 Bedside Blood Glucose 246 mg/dl H 08/04/17 0611 SAQIB TOM August 04, 2017 19:43
--- NOTE | 2017-08-04 23:24 | Pulmonolgy Critical Care Note ---
Critical Care - Asmt/Plan Assessment/Plan: Patient is a 46 year old woman admitted with abdominal wall cellulitis, severe Diabetic Ketoacidosis, currently intubated and sedated in the ICU On antibiotics per ID low dose levophed PRN, off bicarb gtt, s/p HD again today AC 18 vt 500 p5 FIO2 25, PRN weaning off pressors Problems: (1) Cellulitis of abdominal wall Assessment & Plan: rule out necrotizing fasciitis , antibiotics per ID, surgery following, urine culture grew strep agalactiae and staph aureus, wound Klebsiella , she is already on meropenem and zyvox per ID (2) UTI (urinary tract infection) on Meropenem/Zyvox (3) Pharyngitis, acute Antibiotics/ID (4) Septic shock Assessment & Plan: due to the above will send blood culture and start vancomycin with zosyn empiric coverage, remains on Levophed intermittently (5) Acute respiratory failure Assessment & Plan: due to the above, intubated in ED continue on mechanical ventilation, lighten sedation PRN, Wean ventilator as tolerated (6) SCARLET (acute kidney injury) Assessment & Plan: due to the above, continue fluids for hydration and blood pressure support, nephrology is following (7) DKA (diabetic ketoacidoses)/Hyponatremia Assessment & Plan: due to poorly controlled diabetes and sepsis, recommend insulin drip in the ICU with close monitor of her blood glucose to keep between 80-120 Diet Nephro - start 10/hour, goal 40 Subjective Allergies: Coded Allergies: No Known Allergies (Unverified , 07/29/17) Objective Vital Signs Last 24 Hour Vital Signs Date Time Temp Pulse Resp B/P (MAP) Pulse Ox O2 Delivery O2 Flow Rate FiO2 07/29/17 16:30 82 25 35 07/29/17 15:04 97.0 79 34 103/98 99 Room Air 97.0 07/29/17 13:02 97.0 100 16 73/49 98 Room Air 97.0 Height (Feet): 5 Height (Inches): 5.00 Weight (Pounds): 250 Patient sedated on the ventilator Obese HEENT: NCAT, PERRL, moist MM Chest: CTAB, equal BS, 8.0 ETT 23cm Heart: HS1, Hs2 RRR Abdomen: Obese, erethematous area lower abdominal wall improving Extremeties: No rashes 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 noted, no seizures Laboratory Tests Test 07/29/17 13:55 07/29/17 15:00 07/29/17 15:34 White Blood Count 36.2 K/UL (4.8-10.8) *H Red Blood Count 5.09 M/UL (4.20-5.40) Hemoglobin 10.5 G/DL (12.0-16.0) L Hematocrit 36.4 % (37.0-47.0) L Mean Corpuscular Volume 71 FL (80-99) L Mean Corpuscular Hemoglobin 20.6 PG (27.0-31.0) L Mean Corpuscular Hemoglobin Concent 28.9 G/DL (32.0-36.0) L Red Cell Distribution Width 16.2 % (11.6-14.8) H Platelet Count 525 K/UL (150-450) H Mean Platelet Volume 8.3 FL (6.5-10.1) Neutrophils (%) (Auto) % (45.0-75.0) Lymphocytes (%) (Auto) % (20.0-45.0) Monocytes (%) (Auto) % (1.0-10.0) Eosinophils (%) (Auto) % (0.0-3.0) Basophils (%) (Auto) % (0.0-2.0) Differential Total Cells Counted 100 Neutrophils % (Manual) 69 % (45-75) Lymphocytes % (Manual) 10 % (20-45) L Monocytes % (Manual) 5 % (1-10) Eosinophils % (Manual) 0 % (0-3) Basophils % (Manual) 0 % (0-2) Band Neutrophils 16 % (0-8) H Platelet Estimate Increased H Platelet Morphology Giant Platelets Occasional Polychromasia 1+ Hypochromasia 1+ Anisocytosis 1+ Microcytosis 1+ D-Dimer 1.85 mg/L FEU (0.00-0.49) H Urine Color Pale yellow Urine Appearance Clear Urine pH 5 (4.5-8.0) Urine Specific [place] 1.020 (1.005-1.035) Urine Protein 3+ (NEGATIVE) H Urine Glucose (UA) 4+ (NEGATIVE) H Urine Ketones 3+ (NEGATIVE) H Urine Occult Blood 5+ (NEGATIVE) H Urine Nitrite Negative (NEGATIVE) Urine Bilirubin Negative (NEGATIVE) Urine Urobilinogen Normal MG/DL (0.0-1.0) Urine Leukocyte Esterase 3+ (NEGATIVE) H Urine RBC 5-10 /HPF (0 - 2) H Urine WBC 5-10 /HPF (0 - 2) H Urine Squamous Epithelial Cells Moderate /LPF (NONE/OCC) H Urine Bacteria Few /HPF (NONE) Urine HCG, Qualitative Negative (NEGATIVE) Sodium Level 118 MMOL/L (136-145) *L Potassium Level 5.0 MMOL/L (3.5-5.1) Chloride Level 85 MMOL/L (98-107) L Carbon Dioxide Level < 5 MMOL/L (21-32) *L Blood Urea Nitrogen 28 mg/dL (7-18) H Creatinine 1.8 MG/DL (0.55-1.30) H Estimat Glomerular Filtration Rate 30.1 mL/min (>60) Glucose Level 868 MG/DL (74-106) *H Calcium Level 10.7 MG/DL (8.5-10.1) H Total Bilirubin 0.7 MG/DL (0.2-1.0) Aspartate Amino Transf (AST/SGOT) 44 U/L (15-37) H Alanine Aminotransferase (ALT/SGPT) 29 U/L (12-78) Alkaline Phosphatase 337 U/L (46-116) H Total Creatine Kinase 159 U/L (26-308) Creatine Kinase MB 3.3 NG/ML (0.0-3.6) Creatine Kinase MB Relative Index 2.0 Troponin I 0.000 ng/mL (0.000-0.056) Pro-B-Type Natriuretic Peptide 5024 pg/mL (0-125) H Total Protein 8.3 G/DL (6.4-8.2) H Albumin 2.3 G/DL (3.4-5.0) L Globulin 6.0 g/dL Albumin/Globulin Ratio 0.4 (1.0-2.7) L Lipase 47 U/L (73-393) L Urine Opiates Screen Negative (NEGATIVE) Urine Barbiturates Screen Negative (NEGATIVE) Phencyclidine (PCP) Screen Negative (NEGATIVE) Urine Amphetamines Screen Negative (NEGATIVE) Urine Benzodiazepines Screen Negative (NEGATIVE) Urine Cocaine Screen Negative (NEGATIVE) Urine Marijuana (THC) Screen Negative (NEGATIVE) Lactic Acid Level 1.10 mmol/L (0.66-2.22) Arterial Blood pH 6.830 (7.350-7.450) Arterial Blood Partial Pressure CO2 21.0 mmHg (35.0-45.0) *L Arterial Blood Partial Pressure O2 108.8 mmHg (75.0-100.0) H Arterial Blood HCO3 3.4 mmol/L (22.0-26.0) L Arterial Blood Oxygen Saturation 95.7 % (92.0-98.0) Arterial Blood Base Excess -29.1 Ravi Test Positive Current Medications Medications (Trade) Dose Ordered Sig/Tommy Route PRN Reason Start Time Stop Time Status Last Admin Dose Admin Insulin Human Regular 100 units/ Sodium Chloride 100 ml @ 5 mls/hr Q24H IV 07/29/17 14:15 08/28/17 14:14 Norepinephrine Bitartrate 4 mg/ Dextrose 250 ml @ 0 mls/hr Q24H IV 07/29/17 16:45 08/28/17 16:44 Piperacillin Sod/ Tazobactam Sod 3.375 gm/Sodium Chloride 110 ml @ 27.5 mls/hr EVERY 8 HOURS IVPB 07/29/17 22:00 08/03/17 21:59 Vancomycin HCl (Vanco rx to dose) 1 ea DAILY PRN MISC Per rx protocol 07/29/17 16:00 08/28/17 15:59 Vancomycin HCl 500 mg/Dextrose 110 ml @ 110 mls/hr ONCE ONCE IVPB 07/29/17 18:00 07/29/17 18:59 Critical Care - Objective Last 24 Hour Vital Signs Date Time Temp Pulse Resp B/P (MAP) Pulse Ox O2 Delivery O2 Flow Rate FiO2 08/04/17 22:00 25 08/04/17 21:17 94 27 30 08/04/17 21:00 26 08/04/17 20:11 98.3 08/04/17 20:00 30 08/04/17 20:00 27 08/04/17 19:41 27 08/04/17 19:18 87 28 30 08/04/17 19:00 88 28 105/46 100 Mechanical Ventilator 30 08/04/17 19:00 27 08/04/17 18:30 83 27 105/45 100 Mechanical Ventilator 30 08/04/17 18:15 99.2 08/04/17 18:00 86 27 121/53 100 Mechanical Ventilator 30 08/04/17 18:00 16 08/04/17 17:30 86 26 126/52 99 Mechanical Ventilator 30 08/04/17 17:30 92 30 126/53 100 Mechanical Ventilator 30 08/04/17 17:23 90 29 30 08/04/17 17:00 92 30 126/53 100 Mechanical Ventilator 30 08/04/17 17:00 18 08/04/17 16:30 93 30 125/57 100 Mechanical Ventilator 30 08/04/17 16:04 99.5 08/04/17 16:00 94 26 123/57 100 Mechanical Ventilator 30 08/04/17 16:00 82 08/04/17 16:00 16 08/04/17 16:00 30 08/04/17 15:30 90 27 116/48 100 Mechanical Ventilator 30 08/04/17 15:03 85 30 30 08/04/17 15:00 99.2 88 26 113/61 100 Mechanical Ventilator 30 99.2 08/04/17 15:00 19 08/04/17 14:50 98.7 83 26 116/60 100 Mechanical Ventilator 30 98.7 08/04/17 14:30 85 26 113/52 100 Mechanical Ventilator 30 08/04/17 14:00 84 25 119/50 100 Mechanical Ventilator 30 08/04/17 14:00 18 08/04/17 13:45 Mechanical Ventilator 30 08/04/17 13:30 82 27 134/58 100 Mechanical Ventilator 30 08/04/17 13:05 30 08/04/17 13:00 18 08/04/17 13:00 81 25 117/53 100 Mechanical Ventilator 30 08/04/17 12:52 86 30 30 08/04/17 12:30 80 20 108/50 100 Mechanical Ventilator 40 08/04/17 12:00 20 08/04/17 12:00 81 08/04/17 12:00 81 28 106/46 100 Mechanical Ventilator 40 08/04/17 11:30 86 24 103/44 100 Mechanical Ventilator 40 08/04/17 11:00 80 28 115/46 100 Mechanical Ventilator 40 08/04/17 11:00 29 08/04/17 10:49 90 34 40 08/04/17 10:40 Mechanical Ventilator 40 08/04/17 10:30 99.0 89 30 117/46 100 Mechanical Ventilator 40 99.0 08/04/17 10:10 40 08/04/17 10:00 80 28 120/46 100 Mechanical Ventilator 40 08/04/17 10:00 29 08/04/17 09:30 84 27 118/44 100 Mechanical Ventilator 40 08/04/17 09:18 28 08/04/17 09:00 85 28 119/55 100 Mechanical Ventilator 40 08/04/17 09:00 45 08/04/17 08:55 86 31 40 08/04/17 08:30 84 28 125/56 100 Mechanical Ventilator 40 08/04/17 08:00 84 29 119/53 100 Mechanical Ventilator 40 08/04/17 08:00 28 08/04/17 08:00 112/52 08/04/17 08:00 80 08/04/17 07:30 99.0 84 29 117/49 100 Mechanical Ventilator 40 99.0 08/04/17 07:00 88 30 101/48 100 Mechanical Ventilator 40 08/04/17 07:00 28 08/04/17 06:46 89 33 40 08/04/17 06:30 89 29 104/50 100 Mechanical Ventilator 40 08/04/17 06:00 29 08/04/17 06:00 86 29 107/54 100 Mechanical Ventilator 40 08/04/17 05:30 86 30 104/52 100 Mechanical Ventilator 40 08/04/17 05:00 87 31 122/58 100 Mechanical Ventilator 45 08/04/17 05:00 31 08/04/17 04:57 87 32 40 08/04/17 04:30 84 28 102/48 100 Mechanical Ventilator 45 08/04/17 04:00 45 08/04/17 04:00 99.1 81 27 96/45 100 Mechanical Ventilator 45 99.1 08/04/17 04:00 30 08/04/17 03:30 82 27 98/47 100 Mechanical Ventilator 45 08/04/17 03:26 83 27 40 08/04/17 03:09 84 08/04/17 03:00 82 28 109/53 100 Mechanical Ventilator 45 08/04/17 03:00 27 08/04/17 02:30 77 27 96/46 100 Mechanical Ventilator 45 08/04/17 02:00 78 27 85/40 100 Mechanical Ventilator 45 08/04/17 02:00 27 08/04/17 01:30 81 27 95/47 100 Mechanical Ventilator 45 08/04/17 01:00 28 08/04/17 01:00 87 28 106/52 100 Mechanical Ventilator 45 08/04/17 00:47 88 27 40 08/04/17 00:30 85 26 111/54 100 Mechanical Ventilator 45 08/04/17 00:00 99.0 84 26 107/55 100 Mechanical Ventilator 45 99.0 08/04/17 00:00 26 08/03/17 23:38 81 28 40 08/03/17 23:30 81 25 111/56 100 Mechanical Ventilator 45 Micro: Microbiology Date/Time Source Procedure Growth Status 08/02/17 16:30 Blood Blood Culture - Preliminary NO GROWTH AFTER 24 HOURS Resulted 08/02/17 16:30 Blood Blood Culture - Preliminary NO GROWTH AFTER 24 HOURS Resulted Accucheck: 158 Critical Care - Subjective ROS Limited/Unobtainable: Yes Condition: improving IV Access: central EKG Rhythm: Sinus Rhythm FI02: 30 Vent Support Breath Rate: 18 Vent Support Mode: AC Vent Tidal Volume: 500 Sputum Amount: Small PEEP: 5.0 PIP: 24 I&O: Intake and Output 08/03/17 08/04/17 19:00 07:00 Intake Total 1525.0 ml 1379 ml Output Total 145 ml 330 ml Balance 1380.0 ml 1049 ml Intake Oral 0 ml 0 ml IV Total 1525.0 ml 1379 ml Output Urine Total 145 ml 330 ml # Bowel Movements 1 ET-Tube: 8.0 ET Position: 22 Marko Chaney M.D. August 04, 2017 23:24
[2017-08-05] VITALS (32 sets, daily range): BP systolic 96–140; BP diastolic 40–69
[2017-08-05 04:53] LABS: HEMATOCRIT 27.9 % (37.0-47.0); HEMOGLOBIN 8.7 G/DL (12.0-16.0); MEAN CORPUSCULAR VOLUME 70 FL (80-99); PLATELET COUNT 262 K/UL (150-450); RED BLOOD COUNT 3.96 M/UL (4.20-5.40); RED CELL DISTRIBUTION WIDTH 16.7 % (11.6-14.8); WHITE BLOOD COUNT 19.4 K/UL (4.8-10.8)
[2017-08-05 05:25] LABS: ANION GAP 14 mmol/L (5-15); BLOOD UREA NITROGEN 44 mg/dL (7-18); CARBON DIOXIDE 22 MMOL/L (21-32); CHLORIDE 105 MMOL/L (98-107); CREATININE 4.4 MG/DL (0.55-1.30); POTASSIUM 3.4 MMOL/L (3.5-5.1); SODIUM 141 MMOL/L (136-145)
[2017-08-05] MEDS: Heparin 5000 units/ml inj SUBQ SCH ×2 (05:59→16:00)
[2017-08-05] MEDS: NovoLOG Insulin Flexpen SUBQ SCH ×7 (06:01→21:31)
[2017-08-05] MEDS: D5NS 1,000 ML IV SCH ×2 (06:08→20:29)
--- NOTE | 2017-08-05 07:54 | Nephrology Progress Note ---
Assessment/Plan Assessment/Plan 1. SCARLET- ATN non resolving. HD prn, last session yesterday - multifact ATN (sepsis induced inflammotory cytokine prox tub damage/ ishchemic ATN hypotension/vol dep) - Hold HD today 2. DKA/Met Acidosis- due hypoperfusion and renal insufficiency 3. Septic Shock- etiology likely from abd cellulitis. Abx mgmt per ID - Gen Surg mgmt of abdomen paniculitis. Appreciate their assistance 4. Hypotension- stabilizing, off IV pressor 5. Resp FL- intubated on ventilator per PCC management 6. Hypok+/Ca/Phos- replace K+ today 7. Anemia- s/p 2 units PRBC - appreciate GI assistance Subjective Date patient seen: August 05, 2017 Time patient seen: 07:50 ROS Limited/Unobtainable: No Allergies: Coded Allergies: PENICILLINS (Verified Allergy, Unknown, 07/30/17) According to mother, the patient is allergic to Penicillins All Systems: reviewed and negative except above Subjective Patient remains intubated fully awake and coherent Objective Last 24 Hour Vital Signs Date Time Temp Pulse Resp B/P (MAP) Pulse Ox O2 Delivery O2 Flow Rate FiO2 08/05/17 07:30 98.8 81 25 120/50 100 Mechanical Ventilator 30 98.8 08/05/17 07:01 86 23 30 08/05/17 07:00 25 08/05/17 07:00 87 22 124/53 100 Mechanical Ventilator 30 08/05/17 06:30 80 13 96/41 100 Mechanical Ventilator 30 08/05/17 06:00 83 13 105/46 100 Mechanical Ventilator 30 08/05/17 06:00 25 08/05/17 05:30 82 25 96/40 100 Mechanical Ventilator 30 08/05/17 05:00 89 25 100/44 100 Mechanical Ventilator 30 08/05/17 05:00 26 08/05/17 04:49 84 24 30 08/05/17 04:30 88 25 103/51 100 Mechanical Ventilator 30 08/05/17 04:00 30 08/05/17 04:00 98.4 89 25 106/60 100 Mechanical Ventilator 30 98.4 08/05/17 04:00 24 08/05/17 04:00 93 08/05/17 03:30 89 25 106/46 100 Mechanical Ventilator 30 08/05/17 03:00 25 08/05/17 03:00 88 25 116/60 100 Mechanical Ventilator 30 08/05/17 02:46 86 25 30 08/05/17 02:30 89 26 121/63 99 Mechanical Ventilator 30 08/05/17 02:00 25 08/05/17 02:00 89 25 112/49 98 Mechanical Ventilator 30 08/05/17 01:30 85 23 116/60 100 Mechanical Ventilator 30 08/05/17 01:00 23 08/05/17 01:00 89 24 117/53 99 Mechanical Ventilator 30 08/05/17 00:53 85 24 30 08/05/17 00:30 86 25 116/60 100 Mechanical Ventilator 30 08/05/17 00:00 30 08/05/17 00:00 24 08/05/17 00:00 86 08/05/17 00:00 98.6 88 25 112/49 100 Mechanical Ventilator 30 98.6 08/04/17 23:30 89 25 116/60 100 Mechanical Ventilator 30 08/04/17 23:10 85 26 30 08/04/17 23:00 87 25 118/51 100 Mechanical Ventilator 30 08/04/17 23:00 25 08/04/17 22:30 84 24 118/50 100 Mechanical Ventilator 30 08/04/17 22:00 98.5 88 24 102/40 100 Mechanical Ventilator 30 98.5 08/04/17 22:00 25 08/04/17 21:30 89 26 116/50 100 Mechanical Ventilator 30 08/04/17 21:17 94 27 30 08/04/17 21:00 26 08/04/17 21:00 93 26 118/49 100 Mechanical Ventilator 30 08/04/17 20:30 99.0 91 21 115/48 100 Mechanical Ventilator 30 99.0 08/04/17 20:11 98.3 08/04/17 20:00 30 08/04/17 20:00 98.6 89 25 119/56 100 Mechanical Ventilator 30 98.6 08/04/17 20:00 82 08/04/17 20:00 27 08/04/17 19:41 27 08/04/17 19:30 90 27 123/55 100 Mechanical Ventilator 30 08/04/17 19:18 87 28 30 08/04/17 19:00 88 28 105/46 100 Mechanical Ventilator 30 08/04/17 19:00 27 08/04/17 18:30 83 27 105/45 100 Mechanical Ventilator 30 08/04/17 18:15 99.2 08/04/17 18:00 86 27 121/53 100 Mechanical Ventilator 30 08/04/17 18:00 16 08/04/17 17:30 86 26 126/52 99 Mechanical Ventilator 30 08/04/17 17:30 92 30 126/53 100 Mechanical Ventilator 30 08/04/17 17:23 90 29 30 08/04/17 17:00 92 30 126/53 100 Mechanical Ventilator 30 08/04/17 17:00 18 08/04/17 16:30 93 30 125/57 100 Mechanical Ventilator 30 08/04/17 16:04 99.5 08/04/17 16:00 94 26 123/57 100 Mechanical Ventilator 30 08/04/17 16:00 82 08/04/17 16:00 16 08/04/17 16:00 30 08/04/17 15:30 90 27 116/48 100 Mechanical Ventilator 30 08/04/17 15:03 85 30 30 08/04/17 15:00 99.2 88 26 113/61 100 Mechanical Ventilator 30 99.2 08/04/17 15:00 19 08/04/17 14:50 98.7 83 26 116/60 100 Mechanical Ventilator 30 98.7 08/04/17 14:30 85 26 113/52 100 Mechanical Ventilator 30 08/04/17 14:00 84 25 119/50 100 Mechanical Ventilator 30 08/04/17 14:00 18 08/04/17 13:45 Mechanical Ventilator 30 08/04/17 13:30 82 27 134/58 100 Mechanical Ventilator 30 08/04/17 13:05 30 08/04/17 13:00 18 08/04/17 13:00 81 25 117/53 100 Mechanical Ventilator 30 08/04/17 12:52 86 30 30 08/04/17 12:30 80 20 108/50 100 Mechanical Ventilator 40 08/04/17 12:00 20 08/04/17 12:00 81 08/04/17 12:00 81 28 106/46 100 Mechanical Ventilator 40 08/04/17 11:30 86 24 103/44 100 Mechanical Ventilator 40 08/04/17 11:00 80 28 115/46 100 Mechanical Ventilator 40 08/04/17 11:00 29 08/04/17 10:49 90 34 40 08/04/17 10:40 Mechanical Ventilator 40 08/04/17 10:30 99.0 89 30 117/46 100 Mechanical Ventilator 40 99.0 08/04/17 10:10 40 08/04/17 10:00 80 28 120/46 100 Mechanical Ventilator 40 08/04/17 10:00 29 08/04/17 09:30 84 27 118/44 100 Mechanical Ventilator 40 08/04/17 09:18 28 08/04/17 09:00 85 28 119/55 100 Mechanical Ventilator 40 08/04/17 09:00 45 08/04/17 08:55 86 31 40 08/04/17 08:30 84 28 125/56 100 Mechanical Ventilator 40 08/04/17 08:00 84 29 119/53 100 Mechanical Ventilator 40 08/04/17 08:00 28 08/04/17 08:00 112/52 08/04/17 08:00 80 Intake and Output 08/04/17 08/05/17 19:00 07:00 Intake Total 1220 ml 1470 ml Output Total 1370 ml 95 ml Balance -150 ml 1375 ml Intake Oral 0 ml 0 ml Free Water 60 ml IV Total 1220 ml 1370 ml Tube Feeding 40 ml Output Urine Total 270 ml 95 ml Hemodialysis UF 1100 ml # Bowel Movements 1 Laboratory Tests 08/04/17 09:05: Arterial Blood pH 7.407, Arterial Blood Partial Pressure CO2 29.5L, Arterial Blood Partial Pressure O2 138.4H, Arterial Blood HCO3 18.2L, Arterial Blood Oxygen Saturation 98.2H, Arterial Blood Base Excess -5.8, Ravi Test Positive 08/04/17 12:15: Arterial Blood pH 7.502H, Arterial Blood Partial Pressure CO2 24.7*L, Arterial Blood Partial Pressure O2 147.0H, Arterial Blood HCO3 18.9L, Arterial Blood Oxygen Saturation 98.3H, Arterial Blood Base Excess -3.7, Ravi Test Positive 08/05/17 04:15: White Blood Count 19.4H, Red Blood Count 3.96L, Hemoglobin 8.7L, Hematocrit 27.9L, Mean Corpuscular Volume 70L, Mean Corpuscular Hemoglobin 21.9L, Mean Corpuscular Hemoglobin Concent 31.1L, Red Cell Distribution Width 16.7H, Platelet Count 262, Mean Platelet Volume 5.7L, Neutrophils (%) (Auto) , Lymphocytes (%) (Auto) , Monocytes (%) (Auto) , Eosinophils (%) (Auto) , Basophils (%) (Auto) , Neutrophils % (Manual) [Pending], Lymphocytes % (Manual) [Pending], Platelet Estimate [Pending], Platelet Morphology [Pending], Sodium Level 141, Potassium Level 3.4L, Chloride Level 105, Carbon Dioxide Level 22, Anion Gap 14, Blood Urea Nitrogen 44H, Creatinine 4.4H, Estimat Glomerular Filtration Rate 10.7, Glucose Level 277H, Calcium Level 8.0L, Ionized Calcium ( Measured) 1.01L Height (Feet): 5 Height (Inches): 5.00 Weight (Pounds): 316 General Appearance: WD/WN, no apparent distress EENT: PERRL/EOMI, normal ENT inspection Neck: non-tender, normal alignment Cardiovascular: normal rate, regular rhythm Respiratory/Chest: chest wall non-tender, lungs clear, normal breath sounds Abdomen: other - LLQ erythema improved Carlton Guzmán M.D. August 05, 2017 07:54
[2017-08-05] MEDS ORDERED: LORazepam Inj 2mg/ml 1ml IV PRN (09:15)
[2017-08-05] MEDS: Meropenem 500 MG in NS 110 ML IVPB SCH ×2 (09:29→21:28)
[2017-08-05] MEDS: Pantoprazole Inj IVP SCH (09:29)
[2017-08-05] MEDS ORDERED: UNOBMED (11:54)
--- NOTE | 2017-08-05 11:56 | GI Initial Consult Note ---
History of Present Illness General Date patient seen: August 05, 2017 Time patient seen: 11:50 Reason for Hospitalization: Dizziness Referring physician: RELL VELÁZQUEZ Reason for Consultation: ANEMIA Present Illness HPI Patient presents with complaints of dizziness Upon initial evaluation patient appears tachypneic, hyperventilating Presented hypotensive. Patient also complains of lower abdomen redness and recent antibiotic initiation. Patient herself is extremely ill, speaks in 1 or 2 word sentences Mother reports that last night she did not appear to sick she had started her antibiotics GI consulted for anemia requiring blood transfusion. Pt seen in ICU, awake A& Ox4 NAD s/p extubation today with NGTFs currently running. Presents today with anemia, SCARLET, DKA, septic shock, hypotension and respiratory failure. No known history of endoscopy / colonoscopy. Home Meds Reported Medications Unable to Obtain Medications (UNABLE TO OBTAIN MEDS) 1 Ea Ea 08/05/17 Med list reviewed/reconciled: Yes Allergies: Coded Allergies: PENICILLINS (Verified Allergy, Unknown, 07/30/17) According to mother, the patient is allergic to Penicillins Patient History Limited by: medical condition History Provided By: Patient, Medical Record PMH Narrative Diabetes mellitus. PAST SURGICAL HISTORY: Not known, the patient intubated. Review of Systems All Other Systems: limited Physical Exam Vital Signs Date Time Temp Pulse Resp B/P (MAP) Pulse Ox O2 Delivery O2 Flow Rate FiO2 08/01/17 07:00 87 24 97/37 95 Mechanical Ventilator 35 08/01/17 08:00 101.1 101.1 08/05/17 09:00 2.0 Sp02 EP Interpretation: reviewed, normal Labs Laboratory Tests Test 08/04/17 12:15 08/05/17 04:15 08/05/17 08:30 Arterial Blood pH 7.502 (7.350-7.450) 7.496 (7.350-7.450) Arterial Blood Partial Pressure CO2 24.7 mmHg (35.0-45.0) *L 31.5 mmHg (35.0-45.0) L Arterial Blood Partial Pressure O2 147.0 mmHg (75.0-100.0) H 99.7 mmHg (75.0-100.0) Arterial Blood HCO3 18.9 mmol/L (22.0-26.0) L 23.8 mmol/L (22.0-26.0) Arterial Blood Oxygen Saturation 98.3 % (92.0-98.0) H 96.9 % (92.0-98.0) Arterial Blood Base Excess -3.7 0.9 Ravi Test Positive Positive White Blood Count 19.4 K/UL (4.8-10.8) H Red Blood Count 3.96 M/UL (4.20-5.40) L Hemoglobin 8.7 G/DL (12.0-16.0) L Hematocrit 27.9 % (37.0-47.0) L Mean Corpuscular Volume 70 FL (80-99) L Mean Corpuscular Hemoglobin 21.9 PG (27.0-31.0) L Mean Corpuscular Hemoglobin Concent 31.1 G/DL (32.0-36.0) L Red Cell Distribution Width 16.7 % (11.6-14.8) H Platelet Count 262 K/UL (150-450) Mean Platelet Volume 5.7 FL (6.5-10.1) L Neutrophils (%) (Auto) % (45.0-75.0) Lymphocytes (%) (Auto) % (20.0-45.0) Monocytes (%) (Auto) % (1.0-10.0) Eosinophils (%) (Auto) % (0.0-3.0) Basophils (%) (Auto) % (0.0-2.0) Differential Total Cells Counted 100 Neutrophils % (Manual) 84 % (45-75) H Lymphocytes % (Manual) 11 % (20-45) L Monocytes % (Manual) 5 % (1-10) Eosinophils % (Manual) 0 % (0-3) Basophils % (Manual) 0 % (0-2) Band Neutrophils 0 % (0-8) Platelet Estimate Adequate Platelet Morphology Normal Hypochromasia 1+ Anisocytosis 1+ Microcytosis 2+ Sodium Level 141 MMOL/L (136-145) Potassium Level 3.4 MMOL/L (3.5-5.1) L Chloride Level 105 MMOL/L (98-107) Carbon Dioxide Level 22 MMOL/L (21-32) Anion Gap 14 mmol/L (5-15) Blood Urea Nitrogen 44 mg/dL (7-18) H Creatinine 4.4 MG/DL (0.55-1.30) H Estimat Glomerular Filtration Rate 10.7 mL/min (>60) Glucose Level 277 MG/DL (74-106) H Calcium Level 8.0 MG/DL (8.5-10.1) L Ionized Calcium (Measured) 1.01 mmol/L (1.10-1.35) L General Appearance: well appearing, no apparent distress, alert, obese Head: normocephalic EENT: PERRL/EOMI, normal ENT inspection Neck: supple Respiratory: normal breath sounds, no respiratory distress Cardiovascular: normal rate Gastrointestinal: normal inspection, non tender, soft, normal bowel sounds, non -distended, ngt, other - LLQ abcess Rectal: deferred Genitourinary: no CVA tenderness Musculoskeletal: normal inspection, back normal Neurologic: normal inspection, alert, oriented x3, responsive Psychiatric: normal inspection, judgement/insight normal, memory normal Skin: normal inspection, normal color, no rash, warm/dry, palpation normal, well hydrated Lymphatic: normal inspection, no adenopathy Current Medications Current Medications Medications (Trade) Dose Ordered Sig/Tommy Route PRN Reason Start Time Stop Time Status Last Admin Dose Admin Acetaminophen (Tylenol) 650 mg EVERY 6 HOURS PRN RECTAL Mild Pain (Pain Scale 1-3) 07/30/17 17:54 08/29/17 17:53 08/04/17 16:04 Chlorhexidine Gluconate (Idalia-Hex 2%) 1 applic DAILY@2000 TOPIC 07/30/17 20:00 08/29/17 19:59 08/04/17 19:40 Dextrose (Dextrose 50%) 25 ml STAT PRN IV Hypoglycemia 08/03/17 13:15 09/02/17 13:14 Dextrose (Dextrose 50%) 50 ml STAT PRN IV Hypoglycemia 08/03/17 13:15 09/02/17 13:14 Dextrose/Sodium Chloride 1,000 ml @ 75 mls/hr [id number] IV 08/01/17 09:00 08/31/17 08:59 08/05/17 06:08 Heparin Sodium (Porcine) (Heparin 5000 units/ml) 5,000 units EVERY 8 HOURS SUBQ 07/29/17 22:00 08/28/17 21:59 08/05/17 05:59 Insulin Aspart (NovoLOG) 6 units NOVOTIAC SUBQ 08/03/17 16:50 09/02/17 16:49 08/05/17 06:01 Insulin Aspart (NovoLOG) Resistance sliding sc... BEFORE MEALS AND HS SUBQ 08/03/17 16:30 09/02/17 16:29 08/05/17 06:03 Linezolid 300 ml @ 300 mls/hr Q12HR IVPB 08/02/17 13:30 08/09/17 13:29 08/05/17 09:29 Lorazepam (Ativan 2mg/ml 1ml) 1 mg Q4H PRN IV For Anxiety 08/05/17 09:15 08/12/17 09:14 Meropenem 500 mg/ Sodium Chloride 110 ml @ 220 mls/hr Q12HR IVPB 08/05/17 09:00 08/10/17 08:59 08/05/17 09:29 Norepinephrine Bitartrate 8 mg/ Dextrose 250 ml @ 0 mls/hr Q24H IV 07/30/17 08:00 08/29/17 07:59 08/03/17 00:44 Pantoprazole (Protonix) 40 mg DAILY IVP 07/30/17 09:00 08/29/17 08:59 08/05/17 09:29 Silver Sulfadiazine (Silvadene Cream 25gm) 1 applic DAILY TOPIC 08/01/17 10:30 08/31/17 10:29 08/05/17 09:29 GI: Plan Problems: (1) Anemia (2) Septic shock (3) DKA (diabetic ketoacidoses) Plan s/p extubation today will consider NGT removal tomorrow if respiratory status has been stable fu ST evaluation anemia work up OB stool r/o GI bleed monitor H&H, prn transfusions bowel regime ppi fu labs Discussed with Dr. Hernandez. Thank you for this patient referral, we will follow. The patient was seen and examined at bedside and all new and available data was reviewed in the patients chart. I agree with the above findings, impression and plan. (Patient seen earlier today. Signature stamp does not reflect patient encounter time.). - MD Lisa Huff AnhMoraPedro [employer] August 05, 2017 11:56
[2017-08-05] MEDS ORDERED: NS 500ML ONE (13:59)
[2017-08-05] MEDS ORDERED: D5NS 1000ml IV ONE (13:59)
[2017-08-05] MEDS ORDERED: Tubing Blood Filter IV ONE (13:59)
--- NOTE | 2017-08-05 14:13 | Infectious Diseases Prog Note ---
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 , will continue meropenem and zyvox empiric coverage for now , surgery attempted to aspirate the left labium phlegmon but there was no pus to drain , repeated blood culture is negative so far (2) UTI (urinary tract infection) Assessment & Plan: culture grew strep agalactiae and staph aureua , she is already on meropenem and zyvox (3) Pharyngitis, acute Assessment & Plan: already on zosyn (4) Septic shock Assessment & Plan: due to the above , improving , off pressor today , blood culture is still negative , with leukocytosis , now on meropenem and zyvox , await repeated blood culture , monitor WBC (5) Acute respiratory failure Assessment & Plan: due to the above, intubated in ED started on mechanical ventilation, monitor ABG and CXR, pulmonary is following (6) SCARLET (acute kidney injury) Assessment & Plan: now with ESRD , due to the above, started on HD , nephrology is following, monitor UOP (7) DKA (diabetic ketoacidoses) Assessment & Plan: due to poorly controlled diabetes and sepsis, S/P insulin drip in the ICU , continue close monitor of her blood glucose to keep between 80 -120 (8) Leg wound, left Assessment & Plan: with infection due to staph aureus and klebsiella oxytoca, already on meropenem and zyvox , continue local wound care as per hospital protocol , will order bone scan to rule out underlying osteomyelitis Subjective Constitutional: Reports: no symptoms HEENT: Reports: no symptoms Respiratory: Reports: dry cough Breasts: Reports: no symptoms Cardiovascular: Reports: no symptoms Gastrointestinal/Abdominal: Reports: diarrhea Genitourinary: Reports: no symptoms Neurologic: Reports: weakness Psychiatric: Reports: no symptoms Skin: Reports: other - red and thick on the left lower side , left lateral leg wound with exudate Endocrine: Reports: no symptoms Hematologic: Reports: no symptoms Musculoskeletal: Reports: no symptoms Allergies: Coded Allergies: PENICILLINS (Verified Allergy, Unknown, 07/30/17) According to mother, the patient is allergic to Penicillins Subjective she was extubated , more awake and responsive . denied any significant pain , off pressor and insulin drip, no fever today . the redness on the lower abdomen is fading away and shifting to the left lower side of her abdomen , less on the inner thighs, left groin lymphadenopathy , small skin breaks with blisters drying out at the folds Objective Vital Signs Last 24 Hour Vital Signs Date Time Temp Pulse Resp B/P (MAP) Pulse Ox O2 Delivery O2 Flow Rate FiO2 08/05/17 10:00 80 20 122/62 96 Nasal Cannula 2.0 08/05/17 09:00 Nasal Cannula 2.0 28 08/05/17 09:00 82 22 137/60 95 Nasal Cannula 2.0 08/05/17 08:30 89 26 30 08/05/17 08:00 87 08/05/17 08:00 90 25 140/66 100 Mechanical Ventilator 30 08/05/17 08:00 140/66 08/05/17 08:00 30 08/05/17 07:30 98.8 81 25 120/50 100 Mechanical Ventilator 30 98.8 08/05/17 07:01 86 23 30 08/05/17 07:00 25 08/05/17 07:00 87 22 124/53 100 Mechanical Ventilator 30 08/05/17 06:30 80 13 96/41 100 Mechanical Ventilator 30 08/05/17 06:00 83 13 105/46 100 Mechanical Ventilator 30 08/05/17 06:00 25 08/05/17 05:30 82 25 96/40 100 Mechanical Ventilator 30 08/05/17 05:00 89 25 100/44 100 Mechanical Ventilator 30 08/05/17 05:00 26 08/05/17 04:49 84 24 30 08/05/17 04:30 88 25 103/51 100 Mechanical Ventilator 30 08/05/17 04:00 30 08/05/17 04:00 98.4 89 25 106/60 100 Mechanical Ventilator 30 98.4 08/05/17 04:00 24 08/05/17 04:00 93 08/05/17 03:30 89 25 106/46 100 Mechanical Ventilator 30 08/05/17 03:00 25 08/05/17 03:00 88 25 116/60 100 Mechanical Ventilator 30 08/05/17 02:46 86 25 30 08/05/17 02:30 89 26 121/63 99 Mechanical Ventilator 30 08/05/17 02:00 25 08/05/17 02:00 89 25 112/49 98 Mechanical Ventilator 30 08/05/17 01:30 85 23 116/60 100 Mechanical Ventilator 30 08/05/17 01:00 23 08/05/17 01:00 89 24 117/53 99 Mechanical Ventilator 30 08/05/17 00:53 85 24 30 08/05/17 00:30 86 25 116/60 100 Mechanical Ventilator 30 08/05/17 00:00 30 08/05/17 00:00 24 08/05/17 00:00 86 08/05/17 00:00 98.6 88 25 112/49 100 Mechanical Ventilator 30 98.6 08/04/17 23:30 89 25 116/60 100 Mechanical Ventilator 30 08/04/17 23:10 85 26 30 08/04/17 23:00 87 25 118/51 100 Mechanical Ventilator 30 08/04/17 23:00 25 08/04/17 22:30 84 24 118/50 100 Mechanical Ventilator 30 08/04/17 22:00 98.5 88 24 102/40 100 Mechanical Ventilator 30 98.5 08/04/17 22:00 25 08/04/17 21:30 89 26 116/50 100 Mechanical Ventilator 30 08/04/17 21:17 94 27 30 08/04/17 21:00 26 08/04/17 21:00 93 26 118/49 100 Mechanical Ventilator 30 08/04/17 20:30 99.0 91 21 115/48 100 Mechanical Ventilator 30 99.0 08/04/17 20:11 98.3 08/04/17 20:00 30 08/04/17 20:00 98.6 89 25 119/56 100 Mechanical Ventilator 30 98.6 08/04/17 20:00 82 08/04/17 20:00 27 08/04/17 19:41 27 08/04/17 19:30 90 27 123/55 100 Mechanical Ventilator 30 08/04/17 19:18 87 28 30 08/04/17 19:00 88 28 105/46 100 Mechanical Ventilator 30 08/04/17 19:00 27 08/04/17 18:30 83 27 105/45 100 Mechanical Ventilator 30 08/04/17 18:15 99.2 08/04/17 18:00 86 27 121/53 100 Mechanical Ventilator 30 08/04/17 18:00 16 08/04/17 17:30 86 26 126/52 99 Mechanical Ventilator 30 08/04/17 17:30 92 30 126/53 100 Mechanical Ventilator 30 08/04/17 17:23 90 29 30 08/04/17 17:00 92 30 126/53 100 Mechanical Ventilator 30 08/04/17 17:00 18 08/04/17 16:30 93 30 125/57 100 Mechanical Ventilator 30 08/04/17 16:04 99.5 08/04/17 16:00 94 26 123/57 100 Mechanical Ventilator 30 08/04/17 16:00 82 08/04/17 16:00 16 08/04/17 16:00 30 08/04/17 15:30 90 27 116/48 100 Mechanical Ventilator 30 08/04/17 15:03 85 30 30 08/04/17 15:00 99.2 88 26 113/61 100 Mechanical Ventilator 30 99.2 08/04/17 15:00 19 08/04/17 14:50 98.7 83 26 116/60 100 Mechanical Ventilator 30 98.7 08/04/17 14:30 85 26 113/52 100 Mechanical Ventilator 30 Height (Feet): 5 Height (Inches): 5.00 Weight (Pounds): 316 General Appearance: WD/WN, no acute distress HEENT: normocephalic, atraumatic, anicteric, mucous membranes moist Respiratory/Chest: chest wall non-tender, normal breath sounds, no respiratory distress, no accessory muscle use, decreased breath sounds, crackles/rales Cardiovascular: normal peripheral pulses, normal rate, regular rhythm, no gallop/murmur, no JVD Abdomen: normal bowel sounds, no organomegaly, non distended, no mass, no scars , hypoactive bowel sounds, tender, other - morbedly obese Extremities: no cyanosis, no clubbing, other - left lateral leg wound with exudate Skin: no rash, no lesions, ulcers - left lateral lower leg Neurologic/Psychiatric: alert, oriented x 3, responsive Lymphatic: no neck adenopathy, no groin adenopathy Microbiology Date/Time Source Procedure Growth Status 08/02/17 16:30 Blood Blood Culture - Preliminary NO GROWTH AFTER 48 HOURS Resulted 08/02/17 16:30 Blood Blood Culture - Preliminary NO GROWTH AFTER 48 HOURS Resulted 08/05/17 03:00 Stool Clostridium difficile Toxin Assay - Final Complete Laboratory Tests Test 08/05/17 04:15 08/05/17 08:30 White Blood Count 19.4 K/UL (4.8-10.8) H Red Blood Count 3.96 M/UL (4.20-5.40) L Hemoglobin 8.7 G/DL (12.0-16.0) L Hematocrit 27.9 % (37.0-47.0) L Mean Corpuscular Volume 70 FL (80-99) L Mean Corpuscular Hemoglobin 21.9 PG (27.0-31.0) L Mean Corpuscular Hemoglobin Concent 31.1 G/DL (32.0-36.0) L Red Cell Distribution Width 16.7 % (11.6-14.8) H Platelet Count 262 K/UL (150-450) Mean Platelet Volume 5.7 FL (6.5-10.1) L Neutrophils (%) (Auto) % (45.0-75.0) Lymphocytes (%) (Auto) % (20.0-45.0) Monocytes (%) (Auto) % (1.0-10.0) Eosinophils (%) (Auto) % (0.0-3.0) Basophils (%) (Auto) % (0.0-2.0) Differential Total Cells Counted 100 Neutrophils % (Manual) 84 % (45-75) H Lymphocytes % (Manual) 11 % (20-45) L Monocytes % (Manual) 5 % (1-10) Eosinophils % (Manual) 0 % (0-3) Basophils % (Manual) 0 % (0-2) Band Neutrophils 0 % (0-8) Platelet Estimate Adequate Platelet Morphology Normal Hypochromasia 1+ Anisocytosis 1+ Microcytosis 2+ Sodium Level 141 MMOL/L (136-145) Potassium Level 3.4 MMOL/L (3.5-5.1) L Chloride Level 105 MMOL/L (98-107) Carbon Dioxide Level 22 MMOL/L (21-32) Anion Gap 14 mmol/L (5-15) Blood Urea Nitrogen 44 mg/dL (7-18) H Creatinine 4.4 MG/DL (0.55-1.30) H Estimat Glomerular Filtration Rate 10.7 mL/min (>60) Glucose Level 277 MG/DL (74-106) H Calcium Level 8.0 MG/DL (8.5-10.1) L Ionized Calcium (Measured) 1.01 mmol/L (1.10-1.35) L Arterial Blood pH 7.496 (7.350-7.450) Arterial Blood Partial Pressure CO2 31.5 mmHg (35.0-45.0) L Arterial Blood Partial Pressure O2 99.7 mmHg (75.0-100.0) Arterial Blood HCO3 23.8 mmol/L (22.0-26.0) Arterial Blood Oxygen Saturation 96.9 % (92.0-98.0) Arterial Blood Base Excess 0.9 Ravi Test Positive Current Medications Medications (Trade) Dose Ordered Sig/Tommy Route PRN Reason Start Time Stop Time Status Last Admin Dose Admin Acetaminophen (Tylenol) 650 mg EVERY 6 HOURS PRN RECTAL Mild Pain (Pain Scale 1-3) 07/30/17 17:54 08/29/17 17:53 08/04/17 16:04 Chlorhexidine Gluconate (Idalia-Hex 2%) 1 applic DAILY@2000 TOPIC 07/30/17 20:00 08/29/17 19:59 08/04/17 19:40 Dextrose (Dextrose 50%) 25 ml STAT PRN IV Hypoglycemia 08/03/17 13:15 09/02/17 13:14 Dextrose (Dextrose 50%) 50 ml STAT PRN IV Hypoglycemia 08/03/17 13:15 09/02/17 13:14 Dextrose/Sodium Chloride 1,000 ml @ 75 mls/hr [id number] IV 08/01/17 09:00 08/31/17 08:59 08/05/17 06:08 Heparin Sodium (Porcine) (Heparin 5000 units/ml) 5,000 units EVERY 8 HOURS SUBQ 07/29/17 22:00 08/28/17 21:59 08/05/17 05:59 Insulin Aspart (NovoLOG) 6 units NOVOTIAC SUBQ 08/03/17 16:50 09/02/17 16:49 08/05/17 13:02 Insulin Aspart (NovoLOG) Resistance sliding sc... BEFORE MEALS AND HS SUBQ 08/03/17 16:30 09/02/17 16:29 08/05/17 12:56 Linezolid 300 ml @ 300 mls/hr Q12HR IVPB 08/02/17 13:30 08/09/17 13:29 08/05/17 09:29 Lorazepam (Ativan 2mg/ml 1ml) 1 mg Q4H PRN IV For Anxiety 08/05/17 09:15 08/12/17 09:14 Meropenem 500 mg/ Sodium Chloride 110 ml @ 220 mls/hr Q12HR IVPB 08/05/17 09:00 08/10/17 08:59 08/05/17 09:29 Norepinephrine Bitartrate 8 mg/ Dextrose 250 ml @ 0 mls/hr Q24H IV 07/30/17 08:00 08/29/17 07:59 08/03/17 00:44 Pantoprazole (Protonix) 40 mg DAILY IVP 07/30/17 09:00 08/29/17 08:59 08/05/17 09:29 Silver Sulfadiazine (Silvadene Cream 25gm) 1 applic DAILY TOPIC 08/01/17 10:30 08/31/17 10:29 08/05/17 09:29 Johanny Colbert M.D. August 05, 2017 14:13
--- NOTE | 2017-08-05 14:29 | General Surgery Progress Note ---
General Surgery-Progress Note Subjective Symptoms: improved, BM Objective Last 24 Hour Vital Signs Date Time Temp Pulse Resp B/P (MAP) Pulse Ox O2 Delivery O2 Flow Rate FiO2 08/05/17 10:00 80 20 122/62 96 Nasal Cannula 2.0 08/05/17 09:00 Nasal Cannula 2.0 28 08/05/17 09:00 82 22 137/60 95 Nasal Cannula 2.0 08/05/17 08:30 89 26 30 08/05/17 08:00 87 08/05/17 08:00 90 25 140/66 100 Mechanical Ventilator 30 08/05/17 08:00 140/66 08/05/17 08:00 30 08/05/17 07:30 98.8 81 25 120/50 100 Mechanical Ventilator 30 98.8 08/05/17 07:01 86 23 30 08/05/17 07:00 25 08/05/17 07:00 87 22 124/53 100 Mechanical Ventilator 30 08/05/17 06:30 80 13 96/41 100 Mechanical Ventilator 30 08/05/17 06:00 83 13 105/46 100 Mechanical Ventilator 30 08/05/17 06:00 25 08/05/17 05:30 82 25 96/40 100 Mechanical Ventilator 30 08/05/17 05:00 89 25 100/44 100 Mechanical Ventilator 30 08/05/17 05:00 26 08/05/17 04:49 84 24 30 08/05/17 04:30 88 25 103/51 100 Mechanical Ventilator 30 08/05/17 04:00 30 08/05/17 04:00 98.4 89 25 106/60 100 Mechanical Ventilator 30 98.4 08/05/17 04:00 24 08/05/17 04:00 93 08/05/17 03:30 89 25 106/46 100 Mechanical Ventilator 30 08/05/17 03:00 25 08/05/17 03:00 88 25 116/60 100 Mechanical Ventilator 30 08/05/17 02:46 86 25 30 08/05/17 02:30 89 26 121/63 99 Mechanical Ventilator 30 08/05/17 02:00 25 08/05/17 02:00 89 25 112/49 98 Mechanical Ventilator 30 08/05/17 01:30 85 23 116/60 100 Mechanical Ventilator 30 08/05/17 01:00 23 08/05/17 01:00 89 24 117/53 99 Mechanical Ventilator 30 08/05/17 00:53 85 24 30 08/05/17 00:30 86 25 116/60 100 Mechanical Ventilator 30 08/05/17 00:00 30 08/05/17 00:00 24 08/05/17 00:00 86 08/05/17 00:00 98.6 88 25 112/49 100 Mechanical Ventilator 30 98.6 08/04/17 23:30 89 25 116/60 100 Mechanical Ventilator 30 08/04/17 23:10 85 26 30 08/04/17 23:00 87 25 118/51 100 Mechanical Ventilator 30 08/04/17 23:00 25 08/04/17 22:30 84 24 118/50 100 Mechanical Ventilator 30 08/04/17 22:00 98.5 88 24 102/40 100 Mechanical Ventilator 30 98.5 08/04/17 22:00 25 08/04/17 21:30 89 26 116/50 100 Mechanical Ventilator 30 08/04/17 21:17 94 27 30 08/04/17 21:00 26 08/04/17 21:00 93 26 118/49 100 Mechanical Ventilator 30 08/04/17 20:30 99.0 91 21 115/48 100 Mechanical Ventilator 30 99.0 08/04/17 20:11 98.3 08/04/17 20:00 30 08/04/17 20:00 98.6 89 25 119/56 100 Mechanical Ventilator 30 98.6 08/04/17 20:00 82 08/04/17 20:00 27 08/04/17 19:41 27 08/04/17 19:30 90 27 123/55 100 Mechanical Ventilator 30 08/04/17 19:18 87 28 30 08/04/17 19:00 88 28 105/46 100 Mechanical Ventilator 30 08/04/17 19:00 27 08/04/17 18:30 83 27 105/45 100 Mechanical Ventilator 30 08/04/17 18:15 99.2 08/04/17 18:00 86 27 121/53 100 Mechanical Ventilator 30 08/04/17 18:00 16 08/04/17 17:30 86 26 126/52 99 Mechanical Ventilator 30 08/04/17 17:30 92 30 126/53 100 Mechanical Ventilator 30 08/04/17 17:23 90 29 30 08/04/17 17:00 92 30 126/53 100 Mechanical Ventilator 30 08/04/17 17:00 18 08/04/17 16:30 93 30 125/57 100 Mechanical Ventilator 30 08/04/17 16:04 99.5 08/04/17 16:00 94 26 123/57 100 Mechanical Ventilator 30 08/04/17 16:00 82 08/04/17 16:00 16 08/04/17 16:00 30 08/04/17 15:30 90 27 116/48 100 Mechanical Ventilator 30 08/04/17 15:03 85 30 30 08/04/17 15:00 99.2 88 26 113/61 100 Mechanical Ventilator 30 99.2 08/04/17 15:00 19 08/04/17 14:50 98.7 83 26 116/60 100 Mechanical Ventilator 30 98.7 08/04/17 14:30 85 26 113/52 100 Mechanical Ventilator 30 I&O Intake and Output 08/04/17 08/05/17 19:00 07:00 Intake Total 1220 ml 1470 ml Output Total 1370 ml 95 ml Balance -150 ml 1375 ml Intake Oral 0 ml 0 ml Free Water 60 ml IV Total 1220 ml 1370 ml Tube Feeding 40 ml Output Urine Total 270 ml 95 ml Hemodialysis UF 1100 ml # Bowel Movements 1 Respiratory: clear Abdomen: other - obese soft erythema has improved considerably Laboratory Tests Test 08/05/17 04:15 08/05/17 08:30 White Blood Count 19.4 K/UL (4.8-10.8) H Red Blood Count 3.96 M/UL (4.20-5.40) L Hemoglobin 8.7 G/DL (12.0-16.0) L Hematocrit 27.9 % (37.0-47.0) L Mean Corpuscular Volume 70 FL (80-99) L Mean Corpuscular Hemoglobin 21.9 PG (27.0-31.0) L Mean Corpuscular Hemoglobin Concent 31.1 G/DL (32.0-36.0) L Red Cell Distribution Width 16.7 % (11.6-14.8) H Platelet Count 262 K/UL (150-450) Mean Platelet Volume 5.7 FL (6.5-10.1) L Neutrophils (%) (Auto) % (45.0-75.0) Lymphocytes (%) (Auto) % (20.0-45.0) Monocytes (%) (Auto) % (1.0-10.0) Eosinophils (%) (Auto) % (0.0-3.0) Basophils (%) (Auto) % (0.0-2.0) Differential Total Cells Counted 100 Neutrophils % (Manual) 84 % (45-75) H Lymphocytes % (Manual) 11 % (20-45) L Monocytes % (Manual) 5 % (1-10) Eosinophils % (Manual) 0 % (0-3) Basophils % (Manual) 0 % (0-2) Band Neutrophils 0 % (0-8) Platelet Estimate Adequate Platelet Morphology Normal Hypochromasia 1+ Anisocytosis 1+ Microcytosis 2+ Sodium Level 141 MMOL/L (136-145) Potassium Level 3.4 MMOL/L (3.5-5.1) L Chloride Level 105 MMOL/L (98-107) Carbon Dioxide Level 22 MMOL/L (21-32) Anion Gap 14 mmol/L (5-15) Blood Urea Nitrogen 44 mg/dL (7-18) H Creatinine 4.4 MG/DL (0.55-1.30) H Estimat Glomerular Filtration Rate 10.7 mL/min (>60) Glucose Level 277 MG/DL (74-106) H Calcium Level 8.0 MG/DL (8.5-10.1) L Ionized Calcium (Measured) 1.01 mmol/L (1.10-1.35) L Arterial Blood pH 7.496 (7.350-7.450) Arterial Blood Partial Pressure CO2 31.5 mmHg (35.0-45.0) L Arterial Blood Partial Pressure O2 99.7 mmHg (75.0-100.0) Arterial Blood HCO3 23.8 mmol/L (22.0-26.0) Arterial Blood Oxygen Saturation 96.9 % (92.0-98.0) Arterial Blood Base Excess 0.9 Ravi Test Positive Assessment Additional Comments cellulitis of abdominal wall Plan Additional Comments continue antibiotics Jorge L Longoria MD August 05, 2017 14:29
--- NOTE | 2017-08-05 14:50 | Cardiac Electrophysiology PN ---
Assessment/Plan Assessment/Plan 1. Septic shock due to diabetic ketoacidosis. On broad-spectrum IV antibiotic. Off pressors Echocardiogram showed EF 60%. Rule out for MT 2. Diabetic ketoacidosis, on IV fluids and insulin. 3. Severe hyponatremia, sodium 118, likely due to diabetic ketoacidosis. Resolved 4. White count of 36,000, abdominal cellulitis, likely because of the patient's DKA. IV antibiotic per Dr. Colbert. 5. Morbid obesity. 6. Respiratory failure, extubated 7. ARF now on HD 8. Anemia hb 6.9. Transfused DW RN Subjective Subjective In ICU was just extubated alert and off pressors since yesterday. Had HD via LFV Manjinder catheter yesterday. No arrhythmias. Objective Last 24 Hour Vital Signs Date Time Temp Pulse Resp B/P (MAP) Pulse Ox O2 Delivery O2 Flow Rate FiO2 08/05/17 10:00 80 20 122/62 96 Nasal Cannula 2.0 08/05/17 09:00 Nasal Cannula 2.0 28 08/05/17 09:00 82 22 137/60 95 Nasal Cannula 2.0 08/05/17 08:30 89 26 30 08/05/17 08:00 87 08/05/17 08:00 90 25 140/66 100 Mechanical Ventilator 30 08/05/17 08:00 140/66 08/05/17 08:00 30 08/05/17 07:30 98.8 81 25 120/50 100 Mechanical Ventilator 30 98.8 08/05/17 07:01 86 23 30 08/05/17 07:00 25 08/05/17 07:00 87 22 124/53 100 Mechanical Ventilator 30 08/05/17 06:30 80 13 96/41 100 Mechanical Ventilator 30 08/05/17 06:00 83 13 105/46 100 Mechanical Ventilator 30 08/05/17 06:00 25 08/05/17 05:30 82 25 96/40 100 Mechanical Ventilator 30 08/05/17 05:00 89 25 100/44 100 Mechanical Ventilator 30 08/05/17 05:00 26 08/05/17 04:49 84 24 30 08/05/17 04:30 88 25 103/51 100 Mechanical Ventilator 30 08/05/17 04:00 30 08/05/17 04:00 98.4 89 25 106/60 100 Mechanical Ventilator 30 98.4 08/05/17 04:00 24 08/05/17 04:00 93 08/05/17 03:30 89 25 106/46 100 Mechanical Ventilator 30 08/05/17 03:00 25 08/05/17 03:00 88 25 116/60 100 Mechanical Ventilator 30 08/05/17 02:46 86 25 30 08/05/17 02:30 89 26 121/63 99 Mechanical Ventilator 30 08/05/17 02:00 25 08/05/17 02:00 89 25 112/49 98 Mechanical Ventilator 30 08/05/17 01:30 85 23 116/60 100 Mechanical Ventilator 30 08/05/17 01:00 23 08/05/17 01:00 89 24 117/53 99 Mechanical Ventilator 30 08/05/17 00:53 85 24 30 08/05/17 00:30 86 25 116/60 100 Mechanical Ventilator 30 08/05/17 00:00 30 08/05/17 00:00 24 08/05/17 00:00 86 08/05/17 00:00 98.6 88 25 112/49 100 Mechanical Ventilator 30 98.6 08/04/17 23:30 89 25 116/60 100 Mechanical Ventilator 30 08/04/17 23:10 85 26 30 08/04/17 23:00 87 25 118/51 100 Mechanical Ventilator 30 08/04/17 23:00 25 08/04/17 22:30 84 24 118/50 100 Mechanical Ventilator 30 08/04/17 22:00 98.5 88 24 102/40 100 Mechanical Ventilator 30 98.5 08/04/17 22:00 25 08/04/17 21:30 89 26 116/50 100 Mechanical Ventilator 30 08/04/17 21:17 94 27 30 08/04/17 21:00 26 08/04/17 21:00 93 26 118/49 100 Mechanical Ventilator 30 08/04/17 20:30 99.0 91 21 115/48 100 Mechanical Ventilator 30 99.0 08/04/17 20:11 98.3 08/04/17 20:00 30 08/04/17 20:00 98.6 89 25 119/56 100 Mechanical Ventilator 30 98.6 08/04/17 20:00 82 08/04/17 20:00 27 08/04/17 19:41 27 08/04/17 19:30 90 27 123/55 100 Mechanical Ventilator 30 08/04/17 19:18 87 28 30 08/04/17 19:00 88 28 105/46 100 Mechanical Ventilator 30 08/04/17 19:00 27 08/04/17 18:30 83 27 105/45 100 Mechanical Ventilator 30 08/04/17 18:15 99.2 08/04/17 18:00 86 27 121/53 100 Mechanical Ventilator 30 08/04/17 18:00 16 08/04/17 17:30 86 26 126/52 99 Mechanical Ventilator 30 08/04/17 17:30 92 30 126/53 100 Mechanical Ventilator 30 08/04/17 17:23 90 29 30 08/04/17 17:00 92 30 126/53 100 Mechanical Ventilator 30 08/04/17 17:00 18 08/04/17 16:30 93 30 125/57 100 Mechanical Ventilator 30 08/04/17 16:04 99.5 08/04/17 16:00 94 26 123/57 100 Mechanical Ventilator 30 08/04/17 16:00 82 08/04/17 16:00 16 08/04/17 16:00 30 08/04/17 15:30 90 27 116/48 100 Mechanical Ventilator 30 08/04/17 15:03 85 30 30 08/04/17 15:00 99.2 88 26 113/61 100 Mechanical Ventilator 30 99.2 08/04/17 15:00 19 08/04/17 14:50 98.7 83 26 116/60 100 Mechanical Ventilator 30 98.7 Intake and Output 08/04/17 08/05/17 19:00 07:00 Intake Total 1220 ml 1470 ml Output Total 1370 ml 95 ml Balance -150 ml 1375 ml Intake Oral 0 ml 0 ml Free Water 60 ml IV Total 1220 ml 1370 ml Tube Feeding 40 ml Output Urine Total 270 ml 95 ml Hemodialysis UF 1100 ml # Bowel Movements 1 Laboratory Tests Test 08/05/17 04:15 08/05/17 08:30 White Blood Count 19.4 K/UL (4.8-10.8) H Red Blood Count 3.96 M/UL (4.20-5.40) L Hemoglobin 8.7 G/DL (12.0-16.0) L Hematocrit 27.9 % (37.0-47.0) L Mean Corpuscular Volume 70 FL (80-99) L Mean Corpuscular Hemoglobin 21.9 PG (27.0-31.0) L Mean Corpuscular Hemoglobin Concent 31.1 G/DL (32.0-36.0) L Red Cell Distribution Width 16.7 % (11.6-14.8) H Platelet Count 262 K/UL (150-450) Mean Platelet Volume 5.7 FL (6.5-10.1) L Neutrophils (%) (Auto) % (45.0-75.0) Lymphocytes (%) (Auto) % (20.0-45.0) Monocytes (%) (Auto) % (1.0-10.0) Eosinophils (%) (Auto) % (0.0-3.0) Basophils (%) (Auto) % (0.0-2.0) Differential Total Cells Counted 100 Neutrophils % (Manual) 84 % (45-75) H Lymphocytes % (Manual) 11 % (20-45) L Monocytes % (Manual) 5 % (1-10) Eosinophils % (Manual) 0 % (0-3) Basophils % (Manual) 0 % (0-2) Band Neutrophils 0 % (0-8) Platelet Estimate Adequate Platelet Morphology Normal Hypochromasia 1+ Anisocytosis 1+ Microcytosis 2+ Sodium Level 141 MMOL/L (136-145) Potassium Level 3.4 MMOL/L (3.5-5.1) L Chloride Level 105 MMOL/L (98-107) Carbon Dioxide Level 22 MMOL/L (21-32) Anion Gap 14 mmol/L (5-15) Blood Urea Nitrogen 44 mg/dL (7-18) H Creatinine 4.4 MG/DL (0.55-1.30) H Estimat Glomerular Filtration Rate 10.7 mL/min (>60) Glucose Level 277 MG/DL (74-106) H Calcium Level 8.0 MG/DL (8.5-10.1) L Ionized Calcium (Measured) 1.01 mmol/L (1.10-1.35) L Arterial Blood pH 7.496 (7.350-7.450) Arterial Blood Partial Pressure CO2 31.5 mmHg (35.0-45.0) L Arterial Blood Partial Pressure O2 99.7 mmHg (75.0-100.0) Arterial Blood HCO3 23.8 mmol/L (22.0-26.0) Arterial Blood Oxygen Saturation 96.9 % (92.0-98.0) Arterial Blood Base Excess 0.9 Ravi Test Positive Microbiology Date/Time Source Procedure Growth Status 08/02/17 16:30 Blood Blood Culture - Preliminary NO GROWTH AFTER 48 HOURS Resulted 08/02/17 16:30 Blood Blood Culture - Preliminary NO GROWTH AFTER 48 HOURS Resulted 08/05/17 03:00 Stool Clostridium difficile Toxin Assay - Final Complete Objective HEAD AND NECK: No JVD, orally intubated. LUNGS: Coarse rhonchi. CARDIOVASCULAR: Regular S1 and S2 with no gallop. ABDOMEN: Cellulitis of the lower abdomen and erythema. EXTREMITIES: 1+ pitting edema.Adama Tracey MD August 05, 2017 14:50
--- NOTE | 2017-08-05 15:02 | General Progress Note ---
Assessment/Plan Problem List: (1) Cellulitis of abdominal wall ICD Codes: L03.311 - Cellulitis of abdominal wall SNOMED: 36419361 (2) Acute respiratory failure ICD Codes: J96.00 - Acute respiratory failure, unspecified whether with hypoxia or hypercapnia SNOMED: 07217123 (3) New onset type 1 diabetes mellitus, uncontrolled ICD Codes: E10.65 - Type 1 diabetes mellitus with hyperglycemia SNOMED: 602151111 (4) Necrotizing fasciitis ICD Codes: M72.6 - Necrotizing fasciitis SNOMED: 68478972 (5) DKA (diabetic ketoacidoses) ICD Codes: E13.10 - Other specified diabetes mellitus with ketoacidosis without coma SNOMED: 23207231, [id number] Assessment/Plan extubated Novolog 6 units every 4 hours NISS every 4 hours SE on Tuesday Subjective Allergies: Coded Allergies: PENICILLINS (Verified Allergy, Unknown, 07/30/17) According to mother, the patient is allergic to Penicillins All Systems: reviewed and negative except above Subjective extubated having ice chips on NGTF Objective Last 24 Hour Vital Signs Date Time Temp Pulse Resp B/P (MAP) Pulse Ox O2 Delivery O2 Flow Rate FiO2 08/05/17 10:00 80 20 122/62 96 Nasal Cannula 2.0 08/05/17 09:00 Nasal Cannula 2.0 28 08/05/17 09:00 82 22 137/60 95 Nasal Cannula 2.0 08/05/17 08:30 89 26 30 08/05/17 08:00 87 08/05/17 08:00 90 25 140/66 100 Mechanical Ventilator 30 08/05/17 08:00 140/66 08/05/17 08:00 30 08/05/17 07:30 98.8 81 25 120/50 100 Mechanical Ventilator 30 98.8 08/05/17 07:01 86 23 30 08/05/17 07:00 25 08/05/17 07:00 87 22 124/53 100 Mechanical Ventilator 30 08/05/17 06:30 80 13 96/41 100 Mechanical Ventilator 30 08/05/17 06:00 83 13 105/46 100 Mechanical Ventilator 30 08/05/17 06:00 25 08/05/17 05:30 82 25 96/40 100 Mechanical Ventilator 30 08/05/17 05:00 89 25 100/44 100 Mechanical Ventilator 30 08/05/17 05:00 26 08/05/17 04:49 84 24 30 08/05/17 04:30 88 25 103/51 100 Mechanical Ventilator 30 08/05/17 04:00 30 08/05/17 04:00 98.4 89 25 106/60 100 Mechanical Ventilator 30 98.4 08/05/17 04:00 24 08/05/17 04:00 93 08/05/17 03:30 89 25 106/46 100 Mechanical Ventilator 30 08/05/17 03:00 25 08/05/17 03:00 88 25 116/60 100 Mechanical Ventilator 30 08/05/17 02:46 86 25 30 08/05/17 02:30 89 26 121/63 99 Mechanical Ventilator 30 08/05/17 02:00 25 08/05/17 02:00 89 25 112/49 98 Mechanical Ventilator 30 08/05/17 01:30 85 23 116/60 100 Mechanical Ventilator 30 08/05/17 01:00 23 08/05/17 01:00 89 24 117/53 99 Mechanical Ventilator 30 08/05/17 00:53 85 24 30 08/05/17 00:30 86 25 116/60 100 Mechanical Ventilator 30 08/05/17 00:00 30 08/05/17 00:00 24 08/05/17 00:00 86 08/05/17 00:00 98.6 88 25 112/49 100 Mechanical Ventilator 30 98.6 08/04/17 23:30 89 25 116/60 100 Mechanical Ventilator 30 08/04/17 23:10 85 26 30 08/04/17 23:00 87 25 118/51 100 Mechanical Ventilator 30 08/04/17 23:00 25 08/04/17 22:30 84 24 118/50 100 Mechanical Ventilator 30 08/04/17 22:00 98.5 88 24 102/40 100 Mechanical Ventilator 30 98.5 08/04/17 22:00 25 08/04/17 21:30 89 26 116/50 100 Mechanical Ventilator 30 08/04/17 21:17 94 27 30 08/04/17 21:00 26 08/04/17 21:00 93 26 118/49 100 Mechanical Ventilator 30 08/04/17 20:30 99.0 91 21 115/48 100 Mechanical Ventilator 30 99.0 08/04/17 20:11 98.3 08/04/17 20:00 30 08/04/17 20:00 98.6 89 25 119/56 100 Mechanical Ventilator 30 98.6 08/04/17 20:00 82 08/04/17 20:00 27 08/04/17 19:41 27 08/04/17 19:30 90 27 123/55 100 Mechanical Ventilator 30 08/04/17 19:18 87 28 30 08/04/17 19:00 88 28 105/46 100 Mechanical Ventilator 30 08/04/17 19:00 27 08/04/17 18:30 83 27 105/45 100 Mechanical Ventilator 30 08/04/17 18:15 99.2 08/04/17 18:00 86 27 121/53 100 Mechanical Ventilator 30 08/04/17 18:00 16 08/04/17 17:30 86 26 126/52 99 Mechanical Ventilator 30 08/04/17 17:30 92 30 126/53 100 Mechanical Ventilator 30 08/04/17 17:23 90 29 30 08/04/17 17:00 92 30 126/53 100 Mechanical Ventilator 30 08/04/17 17:00 18 08/04/17 16:30 93 30 125/57 100 Mechanical Ventilator 30 08/04/17 16:04 99.5 08/04/17 16:00 94 26 123/57 100 Mechanical Ventilator 30 08/04/17 16:00 82 08/04/17 16:00 16 08/04/17 16:00 30 08/04/17 15:30 90 27 116/48 100 Mechanical Ventilator 30 08/04/17 15:03 85 30 30 Intake and Output 08/04/17 08/05/17 19:00 07:00 Intake Total 1220 ml 1470 ml Output Total 1370 ml 95 ml Balance -150 ml 1375 ml Intake Oral 0 ml 0 ml Free Water 60 ml IV Total 1220 ml 1370 ml Tube Feeding 40 ml Output Urine Total 270 ml 95 ml Hemodialysis UF 1100 ml # Bowel Movements 1 Laboratory Tests 08/05/17 04:15: White Blood Count 19.4H, Red Blood Count 3.96L, Hemoglobin 8.7L, Hematocrit 27.9L, Mean Corpuscular Volume 70L, Mean Corpuscular Hemoglobin 21.9L, Mean Corpuscular Hemoglobin Concent 31.1L, Red Cell Distribution Width 16.7H, Platelet Count 262, Mean Platelet Volume 5.7L, Neutrophils (%) (Auto) , Lymphocytes (%) (Auto) , Monocytes (%) (Auto) , Eosinophils (%) (Auto) , Basophils (%) (Auto) , Differential Total Cells Counted 100, Neutrophils % ( Manual) 84H, Lymphocytes % (Manual) 11L, Monocytes % (Manual) 5, Eosinophils % ( Manual) 0, Basophils % (Manual) 0, Band Neutrophils 0, Platelet Estimate Adequate, Platelet Morphology Normal, Hypochromasia 1+, Anisocytosis 1+, Microcytosis 2+, Sodium Level 141, Potassium Level 3.4L, Chloride Level 105, Carbon Dioxide Level 22, Anion Gap 14, Blood Urea Nitrogen 44H, Creatinine 4.4H , Estimat Glomerular Filtration Rate 10.7, Glucose Level 277H, Calcium Level 8.0L, Ionized Calcium (Measured) 1.01L 08/05/17 08:30: Arterial Blood pH 7.496H, Arterial Blood Partial Pressure CO2 31.5L, Arterial Blood Partial Pressure O2 99.7, Arterial Blood HCO3 23.8, Arterial Blood Oxygen Saturation 96.9, Arterial Blood Base Excess 0.9, Ravi Test Positive Height (Feet): 5 Height (Inches): 5.00 Weight (Pounds): 316 General Appearance: no apparent distress Neck: normal alignment Cardiovascular: normal rate Respiratory/Chest: lungs clear Abdomen: normal bowel sounds Edema: 1+ Arm (L), 1+ Arm (R), 1+ Leg (L), 1+ Leg (R), 1+ Pedal (L), 1+ Pedal ( R), 1+ Generalized Objective Item Value Date Time Bedside Blood Glucose 251 mg/dl H 08/05/17 1302 Bedside Blood Glucose 275 mg/dl H 08/05/17 0630 Bedside Blood Glucose 158 mg/dl H 08/04/17 2113 Bedside Blood Glucose 194 mg/dl H 08/04/17 1814 SAQIB TOM August 05, 2017 15:02
--- NOTE | 2017-08-05 18:56 | Pulmonolgy Critical Care Note ---
Critical Care - Asmt/Plan Assessment/Plan: Patient is a 46 year old woman admitted with abdominal wall cellulitis, severe Diabetic Ketoacidosis, currently intubated and sedated in the ICU On antibiotics per ID low dose levophed PRN, off bicarb gtt, s/p HD again today AC 18 vt 500 p5 FIO2 25, tolerated weaning, order given to extubate Problems: (1) Cellulitis of abdominal wall Assessment & Plan: rule out necrotizing fasciitis , antibiotics per ID, surgery following, urine culture grew strep agalactiae and staph aureus, wound Klebsiella , she is already on meropenem and zyvox per ID (2) UTI (urinary tract infection) on Meropenem/Zyvox (3) Pharyngitis, acute Antibiotics/ID (4) Septic shock Assessment & Plan: due to the above will send blood culture and start vancomycin with zosyn empiric coverage, remains on Levophed intermittently (5) Acute respiratory failure Assessment & Plan: due to the above, successfully extubated to coolnhst (6) SCARLET (acute kidney injury) Assessment & Plan: due to the above, continue fluids for hydration and blood pressure support, nephrology is following (7) DKA (diabetic ketoacidoses)/Hyponatremia Assessment & Plan: due to poorly controlled diabetes and sepsis, recommend insulin drip in the ICU with close monitor of her blood glucose to keep between 80-120 Diet Nephro - start 10/hour, goal 40 Subjective Allergies: Coded Allergies: No Known Allergies (Unverified , 07/29/17) Objective Vital Signs Last 24 Hour Vital Signs Date Time Temp Pulse Resp B/P (MAP) Pulse Ox O2 Delivery O2 Flow Rate FiO2 07/29/17 16:30 82 25 35 07/29/17 15:04 97.0 79 34 103/98 99 Room Air 97.0 07/29/17 13:02 97.0 100 16 73/49 98 Room Air 97.0 Height (Feet): 5 Height (Inches): 5.00 Weight (Pounds): 250 Patient sedated on the ventilator Obese HEENT: NCAT, PERRL, moist MM Chest: CTAB, equal BS Heart: HS1, Hs2 RRR Abdomen: Obese, erethematous area lower abdominal wall improving significantly Extremeties: No rashes [employer]: No focal signs noted, no seizures Laboratory Tests Test 07/29/17 13:55 07/29/17 15:00 07/29/17 15:34 White Blood Count 36.2 K/UL (4.8-10.8) *H Red Blood Count 5.09 M/UL (4.20-5.40) Hemoglobin 10.5 G/DL (12.0-16.0) L Hematocrit 36.4 % (37.0-47.0) L Mean Corpuscular Volume 71 FL (80-99) L Mean Corpuscular Hemoglobin 20.6 PG (27.0-31.0) L Mean Corpuscular Hemoglobin Concent 28.9 G/DL (32.0-36.0) L Red Cell Distribution Width 16.2 % (11.6-14.8) H Platelet Count 525 K/UL (150-450) H Mean Platelet Volume 8.3 FL (6.5-10.1) Neutrophils (%) (Auto) % (45.0-75.0) Lymphocytes (%) (Auto) % (20.0-45.0) Monocytes (%) (Auto) % (1.0-10.0) Eosinophils (%) (Auto) % (0.0-3.0) Basophils (%) (Auto) % (0.0-2.0) Differential Total Cells Counted 100 Neutrophils % (Manual) 69 % (45-75) Lymphocytes % (Manual) 10 % (20-45) L Monocytes % (Manual) 5 % (1-10) Eosinophils % (Manual) 0 % (0-3) Basophils % (Manual) 0 % (0-2) Band Neutrophils 16 % (0-8) H Platelet Estimate Increased H Platelet Morphology Giant Platelets Occasional Polychromasia 1+ Hypochromasia 1+ Anisocytosis 1+ Microcytosis 1+ D-Dimer 1.85 mg/L FEU (0.00-0.49) H Urine Color Pale yellow Urine Appearance Clear Urine pH 5 (4.5-8.0) Urine Specific [place] 1.020 (1.005-1.035) Urine Protein 3+ (NEGATIVE) H Urine Glucose (UA) 4+ (NEGATIVE) H Urine Ketones 3+ (NEGATIVE) H Urine Occult Blood 5+ (NEGATIVE) H Urine Nitrite Negative (NEGATIVE) Urine Bilirubin Negative (NEGATIVE) Urine Urobilinogen Normal MG/DL (0.0-1.0) Urine Leukocyte Esterase 3+ (NEGATIVE) H Urine RBC 5-10 /HPF (0 - 2) H Urine WBC 5-10 /HPF (0 - 2) H Urine Squamous Epithelial Cells Moderate /LPF (NONE/OCC) H Urine Bacteria Few /HPF (NONE) Urine HCG, Qualitative Negative (NEGATIVE) Sodium Level 118 MMOL/L (136-145) *L Potassium Level 5.0 MMOL/L (3.5-5.1) Chloride Level 85 MMOL/L (98-107) L Carbon Dioxide Level < 5 MMOL/L (21-32) *L Blood Urea Nitrogen 28 mg/dL (7-18) H Creatinine 1.8 MG/DL (0.55-1.30) H Estimat Glomerular Filtration Rate 30.1 mL/min (>60) Glucose Level 868 MG/DL (74-106) *H Calcium Level 10.7 MG/DL (8.5-10.1) H Total Bilirubin 0.7 MG/DL (0.2-1.0) Aspartate Amino Transf (AST/SGOT) 44 U/L (15-37) H Alanine Aminotransferase (ALT/SGPT) 29 U/L (12-78) Alkaline Phosphatase 337 U/L (46-116) H Total Creatine Kinase 159 U/L (26-308) Creatine Kinase MB 3.3 NG/ML (0.0-3.6) Creatine Kinase MB Relative Index 2.0 Troponin I 0.000 ng/mL (0.000-0.056) Pro-B-Type Natriuretic Peptide 5024 pg/mL (0-125) H Total Protein 8.3 G/DL (6.4-8.2) H Albumin 2.3 G/DL (3.4-5.0) L Globulin 6.0 g/dL Albumin/Globulin Ratio 0.4 (1.0-2.7) L Lipase 47 U/L (73-393) L Urine Opiates Screen Negative (NEGATIVE) Urine Barbiturates Screen Negative (NEGATIVE) Phencyclidine (PCP) Screen Negative (NEGATIVE) Urine Amphetamines Screen Negative (NEGATIVE) Urine Benzodiazepines Screen Negative (NEGATIVE) Urine Cocaine Screen Negative (NEGATIVE) Urine Marijuana (THC) Screen Negative (NEGATIVE) Lactic Acid Level 1.10 mmol/L (0.66-2.22) Arterial Blood pH 6.830 (7.350-7.450) Arterial Blood Partial Pressure CO2 21.0 mmHg (35.0-45.0) *L Arterial Blood Partial Pressure O2 108.8 mmHg (75.0-100.0) H Arterial Blood HCO3 3.4 mmol/L (22.0-26.0) L Arterial Blood Oxygen Saturation 95.7 % (92.0-98.0) Arterial Blood Base Excess -29.1 Ravi Test Positive Current Medications Medications (Trade) Dose Ordered Sig/Tommy Route PRN Reason Start Time Stop Time Status Last Admin Dose Admin Insulin Human Regular 100 units/ Sodium Chloride 100 ml @ 5 mls/hr Q24H IV 07/29/17 14:15 08/28/17 14:14 Norepinephrine Bitartrate 4 mg/ Dextrose 250 ml @ 0 mls/hr Q24H IV 07/29/17 16:45 08/28/17 16:44 Piperacillin Sod/ Tazobactam Sod 3.375 gm/Sodium Chloride 110 ml @ 27.5 mls/hr EVERY 8 HOURS IVPB 07/29/17 22:00 08/03/17 21:59 Vancomycin HCl (Vanco rx to dose) 1 ea DAILY PRN MISC Per rx protocol 07/29/17 16:00 08/28/17 15:59 Vancomycin HCl 500 mg/Dextrose 110 ml @ 110 mls/hr ONCE ONCE IVPB 07/29/17 18:00 07/29/17 18:59 Critical Care - Objective Last 24 Hour Vital Signs Date Time Temp Pulse Resp B/P (MAP) Pulse Ox O2 Delivery O2 Flow Rate FiO2 08/05/17 18:00 88 25 126/60 97 Nasal Cannula 2.0 08/05/17 17:00 90 26 134/54 96 Nasal Cannula 2.0 08/05/17 16:00 99.0 88 22 130/52 98 Nasal Cannula 2.0 99.0 08/05/17 16:00 80 08/05/17 15:00 95 26 133/50 96 Nasal Cannula 2.0 08/05/17 14:00 97 25 114/58 99 Nasal Cannula 2.0 08/05/17 13:00 101 28 132/69 99 Nasal Cannula 2.0 08/05/17 12:00 81 28 97/56 99 Nasal Cannula 2.0 08/05/17 12:00 82 08/05/17 11:00 95 20 96/49 99 Nasal Cannula 2.0 08/05/17 10:00 80 20 122/62 96 Nasal Cannula 2.0 08/05/17 09:00 Nasal Cannula 2.0 28 08/05/17 09:00 82 22 137/60 95 Nasal Cannula 2.0 08/05/17 08:30 89 26 30 08/05/17 08:00 87 08/05/17 08:00 90 25 140/66 100 Mechanical Ventilator 30 08/05/17 08:00 140/66 08/05/17 08:00 30 08/05/17 07:30 98.8 81 25 120/50 100 Mechanical Ventilator 30 98.8 08/05/17 07:01 86 23 30 08/05/17 07:00 25 08/05/17 07:00 87 22 124/53 100 Mechanical Ventilator 30 08/05/17 06:30 80 13 96/41 100 Mechanical Ventilator 30 08/05/17 06:00 83 13 105/46 100 Mechanical Ventilator 30 08/05/17 06:00 25 08/05/17 05:30 82 25 96/40 100 Mechanical Ventilator 30 08/05/17 05:00 89 25 100/44 100 Mechanical Ventilator 30 08/05/17 05:00 26 08/05/17 04:49 84 24 30 08/05/17 04:30 88 25 103/51 100 Mechanical Ventilator 30 08/05/17 04:00 30 08/05/17 04:00 98.4 89 25 106/60 100 Mechanical Ventilator 30 98.4 08/05/17 04:00 24 08/05/17 04:00 93 08/05/17 03:30 89 25 106/46 100 Mechanical Ventilator 30 08/05/17 03:00 25 08/05/17 03:00 88 25 116/60 100 Mechanical Ventilator 30 08/05/17 02:46 86 25 30 08/05/17 02:30 89 26 121/63 99 Mechanical Ventilator 30 08/05/17 02:00 25 08/05/17 02:00 89 25 112/49 98 Mechanical Ventilator 30 08/05/17 01:30 85 23 116/60 100 Mechanical Ventilator 30 08/05/17 01:00 23 08/05/17 01:00 89 24 117/53 99 Mechanical Ventilator 30 08/05/17 00:53 85 24 30 08/05/17 00:30 86 25 116/60 100 Mechanical Ventilator 30 08/05/17 00:00 30 08/05/17 00:00 24 08/05/17 00:00 86 08/05/17 00:00 98.6 88 25 112/49 100 Mechanical Ventilator 30 98.6 08/04/17 23:30 89 25 116/60 100 Mechanical Ventilator 30 08/04/17 23:10 85 26 30 08/04/17 23:00 87 25 118/51 100 Mechanical Ventilator 30 08/04/17 23:00 25 08/04/17 22:30 84 24 118/50 100 Mechanical Ventilator 30 08/04/17 22:00 98.5 88 24 102/40 100 Mechanical Ventilator 30 98.5 08/04/17 22:00 25 08/04/17 21:30 89 26 116/50 100 Mechanical Ventilator 30 08/04/17 21:17 94 27 30 08/04/17 21:00 26 08/04/17 21:00 93 26 118/49 100 Mechanical Ventilator 30 08/04/17 20:30 99.0 91 21 115/48 100 Mechanical Ventilator 30 99.0 08/04/17 20:11 98.3 08/04/17 20:00 30 08/04/17 20:00 98.6 89 25 119/56 100 Mechanical Ventilator 30 98.6 08/04/17 20:00 82 08/04/17 20:00 27 08/04/17 19:41 27 08/04/17 19:30 90 27 123/55 100 Mechanical Ventilator 30 08/04/17 19:18 87 28 30 08/04/17 19:00 88 28 105/46 100 Mechanical Ventilator 30 08/04/17 19:00 27 Micro: Microbiology Date/Time Source Procedure Growth Status 08/05/17 03:00 Stool Clostridium difficile Toxin Assay - Final Complete Accucheck: 154 Critical Care - Subjective ROS Limited/Unobtainable: Yes Condition: improving IV Access: central EKG Rhythm: Sinus Rhythm FI02: 28 Vent Support Breath Rate: 18 Vent Support Mode: CPAP Vent Tidal Volume: 500 Sputum Amount: Small PEEP: 5.0 PIP: 15 Tube Feeding Amount: 20 I&O: Intake and Output 08/04/17 08/05/17 19:00 07:00 Intake Total 1220 ml 1470 ml Output Total 1370 ml 95 ml Balance -150 ml 1375 ml Intake Oral 0 ml 0 ml Free Water 60 ml IV Total 1220 ml 1370 ml Tube Feeding 40 ml Output Urine Total 270 ml 95 ml Hemodialysis UF 1100 ml # Bowel Movements 1 ET-Tube: 8.0 ET Position: 22 Marko Chaney M.D. August 05, 2017 18:56
[2017-08-05] MEDS: Dyna-Hex 2% Top Sol 2oz TOPIC SCH (20:29)
[2017-08-05] MEDS ORDERED: Heparin 5000 units/ml inj SUBQ SCH (22:30)
[2017-08-06] VITALS (21 sets, daily range): BP systolic 89–149; BP diastolic 55–99
[2017-08-06 05:55] LABS: HEMATOCRIT 26.8 % (37.0-47.0); HEMOGLOBIN 8.3 G/DL (12.0-16.0); MEAN CORPUSCULAR VOLUME 70 FL (80-99); PLATELET COUNT 304 K/UL (150-450); RED BLOOD COUNT 3.85 M/UL (4.20-5.40); RED CELL DISTRIBUTION WIDTH 17.5 % (11.6-14.8)
[2017-08-06 06:05] LABS: % IRON SATURATION 20 % (15-50); IRON 20 ug/dL (50-175); TOTAL IRON BINDING CAPACITY 98 ug/dL (250-450)
[2017-08-06 06:26] LABS: ANION GAP 13 mmol/L (5-15); BLOOD UREA NITROGEN 48 mg/dL (7-18); CALCIUM 7.8 MG/DL (8.5-10.1); CARBON DIOXIDE 22 MMOL/L (21-32); CHLORIDE 105 MMOL/L (98-107); CREATININE 4.8 MG/DL (0.55-1.30); FERRITIN 196 NG/ML (8-388); POTASSIUM 3.3 MMOL/L (3.5-5.1); SODIUM 140 MMOL/L (136-145)
[2017-08-06 06:39] LABS: INR 0.9 (0.9-1.1)
[2017-08-06] MEDS: NovoLOG Insulin Flexpen SUBQ SCH ×7 (06:57→22:22)
--- NOTE | 2017-08-06 07:42 | General Progress Note ---
Assessment/Plan Problem List: (1) Cellulitis of abdominal wall ICD Codes: L03.311 - Cellulitis of abdominal wall SNOMED: 75655489 (2) Acute respiratory failure ICD Codes: J96.00 - Acute respiratory failure, unspecified whether with hypoxia or hypercapnia SNOMED: 18005083 (3) New onset type 1 diabetes mellitus, uncontrolled ICD Codes: E10.65 - Type 1 diabetes mellitus with hyperglycemia SNOMED: 356670714 (4) Necrotizing fasciitis ICD Codes: M72.6 - Necrotizing fasciitis SNOMED: 76817770 (5) DKA (diabetic ketoacidoses) ICD Codes: E13.10 - Other specified diabetes mellitus with ketoacidosis without coma SNOMED: 03736038, [id number] Assessment/Plan add Levemir 20 units bid Novolog 6 units ac / hs NISS Subjective Allergies: Coded Allergies: PENICILLINS (Verified Allergy, Unknown, 07/30/17) According to mother, the patient is allergic to Penicillins All Systems: reviewed and negative except above Subjective events noted Objective Last 24 Hour Vital Signs Date Time Temp Pulse Resp B/P (MAP) Pulse Ox O2 Delivery O2 Flow Rate FiO2 08/06/17 05:00 98.3 91 31 116/58 97 Nasal Cannula 2.0 98.3 08/06/17 04:02 93 08/06/17 04:00 98.4 92 34 112/55 97 Nasal Cannula 2.0 98.4 08/06/17 03:00 98.3 91 30 93/61 97 Nasal Cannula 2.0 98.3 08/06/17 02:00 98.9 95 20 113/60 96 Nasal Cannula 2.0 98.9 08/06/17 01:00 98.9 95 20 113/60 96 Nasal Cannula 2.0 98.9 08/06/17 00:00 95 08/06/17 00:00 99.1 95 20 108/55 97 Nasal Cannula 2.0 99.1 08/05/17 23:00 98.7 93 20 105/54 97 Nasal Cannula 2.0 98.7 08/05/17 22:00 99.3 96 22 110/58 97 Nasal Cannula 2.0 99.3 08/05/17 21:00 99.5 98 22 131/55 95 Nasal Cannula 2.0 99.5 08/05/17 20:00 100 08/05/17 20:00 99.7 98 20 117/60 94 Nasal Cannula 2.0 99.7 08/05/17 19:00 80 22 135/65 97 Nasal Cannula 2.0 08/05/17 18:00 88 25 126/60 97 Nasal Cannula 2.0 08/05/17 17:00 90 26 134/54 96 Nasal Cannula 2.0 08/05/17 16:00 99.0 88 22 130/52 98 Nasal Cannula 2.0 99.0 08/05/17 16:00 80 08/05/17 15:00 95 26 133/50 96 Nasal Cannula 2.0 08/05/17 14:00 97 25 114/58 99 Nasal Cannula 2.0 08/05/17 13:00 101 28 132/69 99 Nasal Cannula 2.0 08/05/17 12:00 81 28 97/56 99 Nasal Cannula 2.0 08/05/17 12:00 82 08/05/17 11:00 95 20 96/49 99 Nasal Cannula 2.0 08/05/17 10:00 80 20 122/62 96 Nasal Cannula 2.0 08/05/17 09:00 Nasal Cannula 2.0 28 08/05/17 09:00 82 22 137/60 95 Nasal Cannula 2.0 08/05/17 08:30 89 26 30 08/05/17 08:00 87 08/05/17 08:00 90 25 140/66 100 Mechanical Ventilator 30 08/05/17 08:00 140/66 08/05/17 08:00 30 Intake and Output 08/05/17 08/06/17 19:00 07:00 Intake Total 180 ml 1448.75 ml Output Total 175 ml 280 ml Balance 5 ml 1168.75 ml Free Water 100 ml IV Total 1048.75 ml Tube Feeding 180 ml 300 ml Output Urine Total 175 ml 280 ml # Bowel Movements 3 1 Laboratory Tests 08/05/17 08:30: Arterial Blood pH 7.496H, Arterial Blood Partial Pressure CO2 31.5L, Arterial Blood Partial Pressure O2 99.7, Arterial Blood HCO3 23.8, Arterial Blood Oxygen Saturation 96.9, Arterial Blood Base Excess 0.9, Ravi Test Positive 08/06/17 04:00: White Blood Count 18.0H, Red Blood Count 3.85L, Hemoglobin 8.3L, Hematocrit 26.8L, Mean Corpuscular Volume 70L, Mean Corpuscular Hemoglobin 21.7L, Mean Corpuscular Hemoglobin Concent 31.2L, Red Cell Distribution Width 17.5H, Platelet Count 304, Mean Platelet Volume 5.9L, Neutrophils (%) (Auto) , Lymphocytes (%) (Auto) , Monocytes (%) (Auto) , Eosinophils (%) (Auto) , Basophils (%) (Auto) , Neutrophils % (Manual) [Pending], Lymphocytes % (Manual) [Pending], Platelet Estimate [Pending], Platelet Morphology [Pending], Reticulocyte Count [Pending], Prothrombin Time 9.5, Prothromb Time International Ratio 0.9, Activated Partial Thromboplast Time 28, Sodium Level 140, Potassium Level 3.3L, Chloride Level 105, Carbon Dioxide Level 22, Anion Gap 13, Blood Urea Nitrogen 48H, Creatinine 4.8H, Estimat Glomerular Filtration Rate 9.6, Glucose Level 301H, Calcium Level 7.8L, Iron Level 20L, Total Iron Binding Capacity 98L, Percent Iron Saturation 20, Unsaturated Iron Binding 78L, Ferritin 196, Carcinoembryonic Antigen [Pending], Vitamin B12 Level [Pending], Folate [Pending], Thyroid Stimulating Hormone (TSH) 3.210, Free Thyroxine 0.99 Height (Feet): 5 Height (Inches): 5.00 Weight (Pounds): 331 General Appearance: no apparent distress Neck: normal alignment Cardiovascular: normal rate Respiratory/Chest: lungs clear Abdomen: normal bowel sounds Edema: 1+ Arm (L), 1+ Arm (R), 1+ Leg (L), 1+ Leg (R), 1+ Pedal (L), 1+ Pedal ( R), 1+ Generalized Objective Current Medications Medications (Trade) Dose Ordered Sig/Tommy Route PRN Reason Start Time Stop Time Status Last Admin Dose Admin Acetaminophen (Tylenol) 650 mg EVERY 6 HOURS PRN RECTAL Mild Pain (Pain Scale 1-3) 07/30/17 17:54 08/29/17 17:53 08/04/17 16:04 Chlorhexidine Gluconate ([place]-Hex 2%) 1 applic DAILY@2000 TOPIC 07/30/17 20:00 08/29/17 19:59 08/05/17 20:29 Dextrose (Dextrose 50%) 25 ml STAT PRN IV Hypoglycemia 08/03/17 13:15 09/02/17 13:14 Dextrose (Dextrose 50%) 50 ml STAT PRN IV Hypoglycemia 08/03/17 13:15 09/02/17 13:14 Dextrose/Sodium Chloride 1,000 ml @ 75 mls/hr [id number] IV 08/01/17 09:00 08/31/17 08:59 08/05/17 20:29 Heparin Sodium (Porcine) (Heparin 5000 units/ml) 5,000 units Q8H SUBQ 08/06/17 07:45 09/05/17 07:44 08/06/17 07:39 Insulin Aspart (NovoLOG) 6 units NOVOTIAC SUBQ 08/03/17 16:50 09/02/17 16:49 08/06/17 06:57 Insulin Aspart (NovoLOG) Resistance sliding sc... BEFORE MEALS AND HS SUBQ 08/03/17 16:30 09/02/17 16:29 08/06/17 06:57 Linezolid 300 ml @ 300 mls/hr Q12HR IVPB 08/02/17 13:30 08/09/17 13:29 08/05/17 21:29 Lorazepam (Ativan 2mg/ml 1ml) 1 mg Q4H PRN IV For Anxiety 08/05/17 09:15 08/12/17 09:14 Meropenem 500 mg/ Sodium Chloride 110 ml @ 220 mls/hr Q12HR IVPB 08/05/17 09:00 08/10/17 08:59 08/05/17 21:28 Norepinephrine Bitartrate 8 mg/ Dextrose 250 ml @ 0 mls/hr Q24H IV 07/30/17 08:00 08/29/17 07:59 08/03/17 00:44 Pantoprazole (Protonix) 40 mg DAILY IVP 07/30/17 09:00 08/29/17 08:59 08/05/17 09:29 Silver Sulfadiazine (Silvadene Cream 25gm) 1 applic DAILY TOPIC 08/01/17 10:30 08/31/17 10:29 08/05/17 09:29 Item Value Date Time Bedside Blood Glucose 322 mg/dl H 08/06/17 0657 Bedside Blood Glucose 243 mg/dl H 08/05/17 2131 Bedside Blood Glucose 154 mg/dl H 08/05/17 1630 Bedside Blood Glucose 251 mg/dl H 08/05/17 1302 SAQIB TOM August 06, 2017 07:42
[2017-08-06] MEDS ORDERED: Heparin 5000 units/ml inj SUBQ SCH ×3 (07:45→15:00)
--- NOTE | 2017-08-06 08:28 | Nephrology Progress Note ---
Assessment/Plan Assessment/Plan 1. SCARLET- ATN non resolving. Continue to hold off HD for now and monitor residual renal function - multifact ATN (sepsis induced inflammotory cytokine prox tub damage/ ishchemic ATN hypotension/vol dep) - Hold HD today again 2. DKA/Met Acidosis- due hypoperfusion and renal insufficiency - resolved 3. Septic Shock- etiology likely from abd cellulitis. Abx mgmt per ID - Gen Surg mgmt of abdomen paniculitis. 4. Hypotension- resolved. DC A-line 5. Resp FL- extubated 6. Hypok+/Ca/Phos- replace K+ today again 7. Anemia- s/p 2 units PRBC - appreciate GI assistance in management Subjective Date patient seen: August 06, 2017 Time patient seen: 08:25 ROS Limited/Unobtainable: No Constitutional: Reports: weakness Allergies: Coded Allergies: PENICILLINS (Verified Allergy, Unknown, 07/30/17) According to mother, the patient is allergic to Penicillins All Systems: reviewed and negative except above Subjective Patient now extubated and improving. Mother at bedside Objective Last 24 Hour Vital Signs Date Time Temp Pulse Resp B/P (MAP) Pulse Ox O2 Delivery O2 Flow Rate FiO2 08/06/17 07:00 96 32 149/71 97 Nasal Cannula 2.0 08/06/17 06:00 97 37 117/70 97 Nasal Cannula 2.0 08/06/17 05:00 98.3 91 31 116/58 97 Nasal Cannula 2.0 98.3 08/06/17 04:02 93 08/06/17 04:00 98.4 92 34 112/55 97 Nasal Cannula 2.0 98.4 08/06/17 03:00 98.3 91 30 93/61 97 Nasal Cannula 2.0 98.3 08/06/17 02:00 98.9 95 20 113/60 96 Nasal Cannula 2.0 98.9 08/06/17 01:00 98.9 95 20 113/60 96 Nasal Cannula 2.0 98.9 08/06/17 00:00 95 08/06/17 00:00 99.1 95 20 108/55 97 Nasal Cannula 2.0 99.1 08/05/17 23:00 98.7 93 20 105/54 97 Nasal Cannula 2.0 98.7 08/05/17 22:00 99.3 96 22 110/58 97 Nasal Cannula 2.0 99.3 08/05/17 21:00 99.5 98 22 131/55 95 Nasal Cannula 2.0 99.5 08/05/17 20:00 100 08/05/17 20:00 99.7 98 20 117/60 94 Nasal Cannula 2.0 99.7 08/05/17 19:00 80 22 135/65 97 Nasal Cannula 2.0 08/05/17 18:00 88 25 126/60 97 Nasal Cannula 2.0 08/05/17 17:00 90 26 134/54 96 Nasal Cannula 2.0 08/05/17 16:00 99.0 88 22 130/52 98 Nasal Cannula 2.0 99.0 08/05/17 16:00 80 08/05/17 15:00 95 26 133/50 96 Nasal Cannula 2.0 08/05/17 14:00 97 25 114/58 99 Nasal Cannula 2.0 08/05/17 13:00 101 28 132/69 99 Nasal Cannula 2.0 08/05/17 12:00 81 28 97/56 99 Nasal Cannula 2.0 08/05/17 12:00 82 08/05/17 11:00 95 20 96/49 99 Nasal Cannula 2.0 08/05/17 10:00 80 20 122/62 96 Nasal Cannula 2.0 08/05/17 09:00 Nasal Cannula 2.0 28 08/05/17 09:00 82 22 137/60 95 Nasal Cannula 2.0 08/05/17 08:30 89 26 30 Intake and Output 08/05/17 08/06/17 19:00 07:00 Intake Total 180 ml 1448.75 ml Output Total 175 ml 280 ml Balance 5 ml 1168.75 ml Free Water 100 ml IV Total 1048.75 ml Tube Feeding 180 ml 300 ml Output Urine Total 175 ml 280 ml # Bowel Movements 3 1 Laboratory Tests 08/05/17 08:30: Arterial Blood pH 7.496H, Arterial Blood Partial Pressure CO2 31.5L, Arterial Blood Partial Pressure O2 99.7, Arterial Blood HCO3 23.8, Arterial Blood Oxygen Saturation 96.9, Arterial Blood Base Excess 0.9, Ravi Test Positive 08/06/17 04:00: White Blood Count 18.0H, Red Blood Count 3.85L, Hemoglobin 8.3L, Hematocrit 26.8L, Mean Corpuscular Volume 70L, Mean Corpuscular Hemoglobin 21.7L, Mean Corpuscular Hemoglobin Concent 31.2L, Red Cell Distribution Width 17.5H, Platelet Count 304, Mean Platelet Volume 5.9L, Neutrophils (%) (Auto) , Lymphocytes (%) (Auto) , Monocytes (%) (Auto) , Eosinophils (%) (Auto) , Basophils (%) (Auto) , Neutrophils % (Manual) [Pending], Lymphocytes % (Manual) [Pending], Platelet Estimate [Pending], Platelet Morphology [Pending], Reticulocyte Count [Pending], Prothrombin Time 9.5, Prothromb Time International Ratio 0.9, Activated Partial Thromboplast Time 28, Sodium Level 140, Potassium Level 3.3L, Chloride Level 105, Carbon Dioxide Level 22, Anion Gap 13, Blood Urea Nitrogen 48H, Creatinine 4.8H, Estimat Glomerular Filtration Rate 9.6, Glucose Level 301H, Calcium Level 7.8L, Iron Level 20L, Total Iron Binding Capacity 98L, Percent Iron Saturation 20, Unsaturated Iron Binding 78L, Ferritin 196, Carcinoembryonic Antigen [Pending], Vitamin B12 Level [Pending], Folate 10.8, Thyroid Stimulating Hormone (TSH) 3.210, Free Thyroxine 0.99 Height (Feet): 5 Height (Inches): 5.00 Weight (Pounds): 331 General Appearance: WD/WN, no apparent distress EENT: PERRL/EOMI Neck: non-tender, normal alignment Cardiovascular: normal peripheral pulses, normal rate Respiratory/Chest: chest wall non-tender, lungs clear, normal breath sounds Abdomen: normal bowel sounds, non tender, other - erythema improved Edema: no edema noted Arm (L), no edema noted Arm (R), no edema noted Leg (L), no edema noted Leg (R), no edema noted Pedal (L), no edema noted Pedal (R), no edema noted Generalized Carlton Guzmán M.D. August 06, 2017 08:28
[2017-08-06] MEDS: Meropenem 500 MG in NS 110 ML IVPB SCH ×2 (08:57→20:41)
[2017-08-06] MEDS: Pantoprazole Inj IVP SCH (08:58)
[2017-08-06] MEDS: D5NS 1,000 ML IV SCH (08:58)
[2017-08-06] MEDS: Levemir Flexpen SUBQ SCH ×2 (10:20→17:58)
--- NOTE | 2017-08-06 10:33 | Pulmonology Progress Note ---
Assessment/Plan Assessment/Plan respiratory failure s/p extubation DKA sepsis abd wall cellulitis PLAN pulm stable low flow oxygen monitor for change and recommend from pulm standpoint Subjective Allergies: Coded Allergies: PENICILLINS (Verified Allergy, Unknown, 07/30/17) According to mother, the patient is allergic to Penicillins Subjective extubated and pulm stable Objective Last 24 Hour Vital Signs Date Time Temp Pulse Resp B/P (MAP) Pulse Ox O2 Delivery O2 Flow Rate FiO2 08/06/17 09:00 100 35 135/73 95 Nasal Cannula 2.0 08/06/17 08:00 99 35 141/56 95 Nasal Cannula 2.0 08/06/17 08:00 100 08/06/17 07:00 96 32 149/71 97 Nasal Cannula 2.0 08/06/17 06:00 97 37 117/70 97 Nasal Cannula 2.0 08/06/17 05:00 98.3 91 31 116/58 97 Nasal Cannula 2.0 98.3 08/06/17 04:02 93 08/06/17 04:00 98.4 92 34 112/55 97 Nasal Cannula 2.0 98.4 08/06/17 03:00 98.3 91 30 93/61 97 Nasal Cannula 2.0 98.3 08/06/17 02:00 98.9 95 20 113/60 96 Nasal Cannula 2.0 98.9 08/06/17 01:00 98.9 95 20 113/60 96 Nasal Cannula 2.0 98.9 08/06/17 00:00 95 08/06/17 00:00 99.1 95 20 108/55 97 Nasal Cannula 2.0 99.1 08/05/17 23:00 98.7 93 20 105/54 97 Nasal Cannula 2.0 98.7 08/05/17 22:00 99.3 96 22 110/58 97 Nasal Cannula 2.0 99.3 08/05/17 21:00 99.5 98 22 131/55 95 Nasal Cannula 2.0 99.5 08/05/17 20:00 100 08/05/17 20:00 99.7 98 20 117/60 94 Nasal Cannula 2.0 99.7 08/05/17 19:00 80 22 135/65 97 Nasal Cannula 2.0 08/05/17 18:00 88 25 126/60 97 Nasal Cannula 2.0 08/05/17 17:00 90 26 134/54 96 Nasal Cannula 2.0 08/05/17 16:00 99.0 88 22 130/52 98 Nasal Cannula 2.0 99.0 08/05/17 16:00 80 08/05/17 15:00 95 26 133/50 96 Nasal Cannula 2.0 08/05/17 14:00 97 25 114/58 99 Nasal Cannula 2.0 08/05/17 13:00 101 28 132/69 99 Nasal Cannula 2.0 08/05/17 12:00 81 28 97/56 99 Nasal Cannula 2.0 08/05/17 12:00 82 08/05/17 11:00 95 20 96/49 99 Nasal Cannula 2.0 Intake and Output 08/05/17 08/06/17 19:00 07:00 Intake Total 180 ml 1448.75 ml Output Total 175 ml 280 ml Balance 5 ml 1168.75 ml Free Water 100 ml IV Total 1048.75 ml Tube Feeding 180 ml 300 ml Output Urine Total 175 ml 280 ml # Bowel Movements 3 1 Objective WDWN NAD clear breath sounds bilaterally without rhonchi or wheeze [id number] without MRG NABS nontender no HSM no CCE nonfocal Microbiology Date/Time Source Procedure Growth Status 08/05/17 03:00 Stool Clostridium difficile Toxin Assay - Final Complete Laboratory Tests 08/06/17 04:00: White Blood Count 18.0H, Red Blood Count 3.85L, Hemoglobin 8.3L, Hematocrit 26.8L, Mean Corpuscular Volume 70L, Mean Corpuscular Hemoglobin 21.7L, Mean Corpuscular Hemoglobin Concent 31.2L, Red Cell Distribution Width 17.5H, Platelet Count 304, Mean Platelet Volume 5.9L, Neutrophils (%) (Auto) , Lymphocytes (%) (Auto) , Monocytes (%) (Auto) , Eosinophils (%) (Auto) , Basophils (%) (Auto) , Differential Total Cells Counted 100, Neutrophils % ( Manual) 86H, Lymphocytes % (Manual) 9L, Monocytes % (Manual) 5, Eosinophils % ( Manual) 0, Basophils % (Manual) 0, Band Neutrophils 0, Platelet Estimate Adequate, Platelet Morphology Normal, Hypochromasia 2+, Anisocytosis 1+, Microcytosis 3+, Reticulocyte Count 1.3, Prothrombin Time 9.5, Prothromb Time International Ratio 0.9, Activated Partial Thromboplast Time 28, Sodium Level 140, Potassium Level 3.3L, Chloride Level 105, Carbon Dioxide Level 22, Anion Gap 13, Blood Urea Nitrogen 48H, Creatinine 4.8H, Estimat Glomerular Filtration Rate 9.6, Glucose Level 301H, Calcium Level 7.8L, Iron Level 20L, Total Iron Binding Capacity 98L, Percent Iron Saturation 20, Unsaturated Iron Binding 78L, Ferritin 196, Carcinoembryonic Antigen [Pending], Vitamin B12 Level > 2000H, Folate 10.8, Thyroid Stimulating Hormone (TSH) 3.210, Free Thyroxine 0.99 08/06/17 06:00: Stool Occult Blood [Pending] Current Medications Medications (Trade) Dose Ordered Sig/Tommy Route PRN Reason Start Time Stop Time Status Last Admin Dose Admin Acetaminophen (Tylenol) 650 mg EVERY 6 HOURS PRN RECTAL Mild Pain (Pain Scale 1-3) 07/30/17 17:54 08/29/17 17:53 08/04/17 16:04 Chlorhexidine Gluconate (Idalia-Hex 2%) 1 applic DAILY@2000 TOPIC 07/30/17 20:00 08/29/17 19:59 08/05/17 20:29 Dextrose (Dextrose 50%) 25 ml STAT PRN IV Hypoglycemia 08/06/17 07:45 09/05/17 07:44 Dextrose (Dextrose 50%) 50 ml STAT PRN IV Hypoglycemia 08/06/17 07:45 09/05/17 07:44 Dextrose/Sodium Chloride 1,000 ml @ 75 mls/hr [id number] IV 08/01/17 09:00 08/31/17 08:59 08/06/17 08:58 Heparin Sodium (Porcine) (Heparin 5000 units/ml) 5,000 units Q8H SUBQ 08/06/17 07:45 09/05/17 07:44 08/06/17 07:39 Insulin Aspart (NovoLOG) 6 units NOVOTIAC SUBQ 08/03/17 16:50 09/02/17 16:49 08/06/17 06:57 Insulin Aspart (NovoLOG) Resistance sliding sc... BEFORE MEALS AND HS SUBQ 08/03/17 16:30 09/02/17 16:29 08/06/17 06:57 Insulin Detemir (Levemir) 20 units BID SUBQ 08/06/17 09:30 09/05/17 09:29 08/06/17 10:20 Linezolid 300 ml @ 300 mls/hr Q12HR IVPB 08/02/17 13:30 08/09/17 13:29 08/06/17 08:58 Lorazepam (Ativan 2mg/ml 1ml) 1 mg Q4H PRN IV For Anxiety 08/05/17 09:15 08/12/17 09:14 Meropenem 500 mg/ Sodium Chloride 110 ml @ 220 mls/hr Q12HR IVPB 08/05/17 09:00 08/10/17 08:59 08/06/17 08:57 Norepinephrine Bitartrate 8 mg/ Dextrose 250 ml @ 0 mls/hr Q24H IV 07/30/17 08:00 08/29/17 07:59 08/03/17 00:44 Pantoprazole (Protonix) 40 mg DAILY IVP 07/30/17 09:00 08/29/17 08:59 08/06/17 08:58 Potassium Chloride 100 ml @ 50 mls/hr ONCE ONCE IVPB 08/06/17 09:30 08/06/17 11:29 08/06/17 10:15 Silver Sulfadiazine (Silvadene Cream 25gm) 1 applic DAILY TOPIC 08/01/17 10:30 08/31/17 10:29 08/06/17 10:15 Stew Hopson MD August 06, 2017 10:33
--- NOTE | 2017-08-06 13:43 | General Surgery Progress Note ---
General Surgery-Progress Note Objective Last 24 Hour Vital Signs Date Time Temp Pulse Resp B/P (MAP) Pulse Ox O2 Delivery O2 Flow Rate FiO2 08/06/17 13:00 115 30 127/99 95 Nasal Cannula 2.0 08/06/17 12:00 99.5 109 36 89/55 95 Nasal Cannula 2.0 99.5 08/06/17 12:00 109 08/06/17 12:00 101 30 138/96 95 Nasal Cannula 2.0 08/06/17 11:00 101 33 110/70 95 Nasal Cannula 2.0 08/06/17 10:00 104 35 139/68 93 Nasal Cannula 2.0 08/06/17 09:00 100 35 135/73 95 Nasal Cannula 2.0 08/06/17 08:00 99 35 141/56 95 Nasal Cannula 2.0 08/06/17 08:00 100 08/06/17 08:00 99.5 99.5 08/06/17 07:00 96 32 149/71 97 Nasal Cannula 2.0 08/06/17 06:00 97 37 117/70 97 Nasal Cannula 2.0 08/06/17 05:00 98.3 91 31 116/58 97 Nasal Cannula 2.0 98.3 08/06/17 04:02 93 08/06/17 04:00 98.4 92 34 112/55 97 Nasal Cannula 2.0 98.4 08/06/17 03:00 98.3 91 30 93/61 97 Nasal Cannula 2.0 98.3 08/06/17 02:00 98.9 95 20 113/60 96 Nasal Cannula 2.0 98.9 08/06/17 01:00 98.9 95 20 113/60 96 Nasal Cannula 2.0 98.9 08/06/17 00:00 95 08/06/17 00:00 99.1 95 20 108/55 97 Nasal Cannula 2.0 99.1 08/05/17 23:00 98.7 93 20 105/54 97 Nasal Cannula 2.0 98.7 08/05/17 22:00 99.3 96 22 110/58 97 Nasal Cannula 2.0 99.3 08/05/17 21:00 99.5 98 22 131/55 95 Nasal Cannula 2.0 99.5 08/05/17 20:00 100 08/05/17 20:00 99.7 98 20 117/60 94 Nasal Cannula 2.0 99.7 08/05/17 19:00 80 22 135/65 97 Nasal Cannula 2.0 08/05/17 18:00 88 25 126/60 97 Nasal Cannula 2.0 08/05/17 17:00 90 26 134/54 96 Nasal Cannula 2.0 08/05/17 16:00 99.0 88 22 130/52 98 Nasal Cannula 2.0 99.0 08/05/17 16:00 80 08/05/17 15:00 95 26 133/50 96 Nasal Cannula 2.0 08/05/17 14:00 97 25 114/58 99 Nasal Cannula 2.0 I&O Intake and Output 08/05/17 08/06/17 19:00 07:00 Intake Total 180 ml 1523.75 ml Output Total 175 ml 280 ml Balance 5 ml 1243.75 ml Free Water 100 ml IV Total 1123.75 ml Tube Feeding 180 ml 300 ml Output Urine Total 175 ml 280 ml # Bowel Movements 3 1 Respiratory: clear Abdomen: other - obese soft erythema has reduced Laboratory Tests Test 08/06/17 04:00 08/06/17 06:00 White Blood Count 18.0 K/UL (4.8-10.8) H Red Blood Count 3.85 M/UL (4.20-5.40) L Hemoglobin 8.3 G/DL (12.0-16.0) L Hematocrit 26.8 % (37.0-47.0) L Mean Corpuscular Volume 70 FL (80-99) L Mean Corpuscular Hemoglobin 21.7 PG (27.0-31.0) L Mean Corpuscular Hemoglobin Concent 31.2 G/DL (32.0-36.0) L Red Cell Distribution Width 17.5 % (11.6-14.8) H Platelet Count 304 K/UL (150-450) Mean Platelet Volume 5.9 FL (6.5-10.1) L Neutrophils (%) (Auto) % (45.0-75.0) Lymphocytes (%) (Auto) % (20.0-45.0) Monocytes (%) (Auto) % (1.0-10.0) Eosinophils (%) (Auto) % (0.0-3.0) Basophils (%) (Auto) % (0.0-2.0) Differential Total Cells Counted 100 Neutrophils % (Manual) 86 % (45-75) H Lymphocytes % (Manual) 9 % (20-45) L Monocytes % (Manual) 5 % (1-10) Eosinophils % (Manual) 0 % (0-3) Basophils % (Manual) 0 % (0-2) Band Neutrophils 0 % (0-8) Platelet Estimate Adequate Platelet Morphology Normal Hypochromasia 2+ Anisocytosis 1+ Microcytosis 3+ Reticulocyte Count 1.3 % (0.0-2.0) Prothrombin Time 9.5 SEC (9.30-11.50) Prothromb Time International Ratio 0.9 (0.9-1.1) Activated Partial Thromboplast Time 28 SEC (23-33) Sodium Level 140 MMOL/L (136-145) Potassium Level 3.3 MMOL/L (3.5-5.1) L Chloride Level 105 MMOL/L (98-107) Carbon Dioxide Level 22 MMOL/L (21-32) Anion Gap 13 mmol/L (5-15) Blood Urea Nitrogen 48 mg/dL (7-18) H Creatinine 4.8 MG/DL (0.55-1.30) H Estimat Glomerular Filtration Rate 9.6 mL/min (>60) Glucose Level 301 MG/DL (74-106) H Calcium Level 7.8 MG/DL (8.5-10.1) L Iron Level 20 ug/dL (50-175) L Total Iron Binding Capacity 98 ug/dL (250-450) L Percent Iron Saturation 20 % (15-50) Unsaturated Iron Binding 78 ug/dL (112-346) L Ferritin 196 NG/ML (8-388) Carcinoembryonic Antigen Pending Vitamin B12 Level > 2000 PG/ML (193-986) H Folate 10.8 NG/ML (8.6-58.9) Thyroid Stimulating Hormone (TSH) 3.210 uiU/mL (0.358-3.740) Free Thyroxine 0.99 NG/DL (0.76-1.46) Stool Occult Blood Positive (NEGATIVE) Jorge L Longoria MD August 06, 2017 13:43
--- NOTE | 2017-08-06 14:45 | Cardiac Electrophysiology PN ---
Assessment/Plan Assessment/Plan 1. Septic shock due to diabetic ketoacidosis. On broad-spectrum IV antibiotic. Off pressors Echocardiogram showed EF 60%. Rule out for PA 2. Diabetic ketoacidosis, on IV fluids and insulin. 3. Severe hyponatremia, sodium 118, likely due to diabetic ketoacidosis. Resolved 4. White count of 36,000, abdominal cellulitis, likely because of the patient's DKA. IV antibiotic per Dr. Colbert. 5. Morbid obesity. 6. Respiratory failure, extubated 7. ARF last HD 08/04/17 8. Anemia hb 6.9. Transfused DW RN and mother at bedside Subjective Subjective In ICU was alert and off pressors. Had HD via LFV Manjinder catheter 2 days ago . No arrhythmias. Objective Last 24 Hour Vital Signs Date Time Temp Pulse Resp B/P (MAP) Pulse Ox O2 Delivery O2 Flow Rate FiO2 08/06/17 13:00 115 30 127/99 95 Nasal Cannula 2.0 08/06/17 12:00 99.5 109 36 89/55 95 Nasal Cannula 2.0 99.5 08/06/17 12:00 109 08/06/17 12:00 101 30 138/96 95 Nasal Cannula 2.0 08/06/17 11:00 101 33 110/70 95 Nasal Cannula 2.0 08/06/17 10:00 104 35 139/68 93 Nasal Cannula 2.0 08/06/17 09:00 100 35 135/73 95 Nasal Cannula 2.0 08/06/17 08:00 99 35 141/56 95 Nasal Cannula 2.0 08/06/17 08:00 100 08/06/17 08:00 99.5 99.5 08/06/17 07:00 96 32 149/71 97 Nasal Cannula 2.0 08/06/17 06:00 97 37 117/70 97 Nasal Cannula 2.0 08/06/17 05:00 98.3 91 31 116/58 97 Nasal Cannula 2.0 98.3 08/06/17 04:02 93 08/06/17 04:00 98.4 92 34 112/55 97 Nasal Cannula 2.0 98.4 08/06/17 03:00 98.3 91 30 93/61 97 Nasal Cannula 2.0 98.3 08/06/17 02:00 98.9 95 20 113/60 96 Nasal Cannula 2.0 98.9 08/06/17 01:00 98.9 95 20 113/60 96 Nasal Cannula 2.0 98.9 08/06/17 00:00 95 08/06/17 00:00 99.1 95 20 108/55 97 Nasal Cannula 2.0 99.1 08/05/17 23:00 98.7 93 20 105/54 97 Nasal Cannula 2.0 98.7 08/05/17 22:00 99.3 96 22 110/58 97 Nasal Cannula 2.0 99.3 08/05/17 21:00 99.5 98 22 131/55 95 Nasal Cannula 2.0 99.5 08/05/17 20:00 100 08/05/17 20:00 99.7 98 20 117/60 94 Nasal Cannula 2.0 99.7 08/05/17 19:00 80 22 135/65 97 Nasal Cannula 2.0 08/05/17 18:00 88 25 126/60 97 Nasal Cannula 2.0 08/05/17 17:00 90 26 134/54 96 Nasal Cannula 2.0 08/05/17 16:00 99.0 88 22 130/52 98 Nasal Cannula 2.0 99.0 08/05/17 16:00 80 08/05/17 15:00 95 26 133/50 96 Nasal Cannula 2.0 Intake and Output 08/05/17 08/06/17 19:00 07:00 Intake Total 180 ml 1523.75 ml Output Total 175 ml 280 ml Balance 5 ml 1243.75 ml Free Water 100 ml IV Total 1123.75 ml Tube Feeding 180 ml 300 ml Output Urine Total 175 ml 280 ml # Bowel Movements 3 1 Laboratory Tests Test 08/06/17 04:00 08/06/17 06:00 White Blood Count 18.0 K/UL (4.8-10.8) H Red Blood Count 3.85 M/UL (4.20-5.40) L Hemoglobin 8.3 G/DL (12.0-16.0) L Hematocrit 26.8 % (37.0-47.0) L Mean Corpuscular Volume 70 FL (80-99) L Mean Corpuscular Hemoglobin 21.7 PG (27.0-31.0) L Mean Corpuscular Hemoglobin Concent 31.2 G/DL (32.0-36.0) L Red Cell Distribution Width 17.5 % (11.6-14.8) H Platelet Count 304 K/UL (150-450) Mean Platelet Volume 5.9 FL (6.5-10.1) L Neutrophils (%) (Auto) % (45.0-75.0) Lymphocytes (%) (Auto) % (20.0-45.0) Monocytes (%) (Auto) % (1.0-10.0) Eosinophils (%) (Auto) % (0.0-3.0) Basophils (%) (Auto) % (0.0-2.0) Differential Total Cells Counted 100 Neutrophils % (Manual) 86 % (45-75) H Lymphocytes % (Manual) 9 % (20-45) L Monocytes % (Manual) 5 % (1-10) Eosinophils % (Manual) 0 % (0-3) Basophils % (Manual) 0 % (0-2) Band Neutrophils 0 % (0-8) Platelet Estimate Adequate Platelet Morphology Normal Hypochromasia 2+ Anisocytosis 1+ Microcytosis 3+ Reticulocyte Count 1.3 % (0.0-2.0) Prothrombin Time 9.5 SEC (9.30-11.50) Prothromb Time International Ratio 0.9 (0.9-1.1) Activated Partial Thromboplast Time 28 SEC (23-33) Sodium Level 140 MMOL/L (136-145) Potassium Level 3.3 MMOL/L (3.5-5.1) L Chloride Level 105 MMOL/L (98-107) Carbon Dioxide Level 22 MMOL/L (21-32) Anion Gap 13 mmol/L (5-15) Blood Urea Nitrogen 48 mg/dL (7-18) H Creatinine 4.8 MG/DL (0.55-1.30) H Estimat Glomerular Filtration Rate 9.6 mL/min (>60) Glucose Level 301 MG/DL (74-106) H Calcium Level 7.8 MG/DL (8.5-10.1) L Iron Level 20 ug/dL (50-175) L Total Iron Binding Capacity 98 ug/dL (250-450) L Percent Iron Saturation 20 % (15-50) Unsaturated Iron Binding 78 ug/dL (112-346) L Ferritin 196 NG/ML (8-388) Carcinoembryonic Antigen Pending Vitamin B12 Level > 2000 PG/ML (193-986) H Folate 10.8 NG/ML (8.6-58.9) Thyroid Stimulating Hormone (TSH) 3.210 uiU/mL (0.358-3.740) Free Thyroxine 0.99 NG/DL (0.76-1.46) Stool Occult Blood Positive (NEGATIVE) Microbiology Date/Time Source Procedure Growth Status 08/05/17 03:00 Stool Clostridium difficile Toxin Assay - Final Complete Objective HEAD AND NECK: No JVD, LUNGS: Coarse rhonchi. CARDIOVASCULAR: Regular S1 and S2 with no gallop. ABDOMEN: Cellulitis of the lower abdomen and erythema. EXTREMITIES: 1+ pitting edema.Adama Tracey MD August 06, 2017 14:45
--- NOTE | 2017-08-06 17:52 | General Progress Note ---
Assessment/Plan Assessment/Plan Assessment - Sepsis, improved - resp failure, resolved - DKA - abd wall cellulitis - obesity - Renal failure - Anemia Recommendations - continue NGT feeds - check swallow eval - elevated HOB - abx - follow labs and exam - check OB - transfuse PRN Subjective Allergies: Coded Allergies: PENICILLINS (Verified Allergy, Unknown, 07/30/17) According to mother, the patient is allergic to Penicillins Subjective Extubated yesterday c/o dry mouth getting NGT feeds voice hoarse Objective Last 24 Hour Vital Signs Date Time Temp Pulse Resp B/P (MAP) Pulse Ox O2 Delivery O2 Flow Rate FiO2 08/06/17 17:00 114 30 104/57 100 Nasal Cannula 4.0 08/06/17 16:00 99.0 110 30 115/72 96 Nasal Cannula 3.0 99.0 08/06/17 15:00 112 30 106/60 96 Nasal Cannula 2.0 08/06/17 14:00 109 30 110/75 96 Nasal Cannula 2.0 08/06/17 13:00 115 30 127/99 95 Nasal Cannula 2.0 08/06/17 12:00 99.5 109 36 89/55 95 Nasal Cannula 2.0 99.5 08/06/17 12:00 109 08/06/17 12:00 101 30 138/96 95 Nasal Cannula 2.0 08/06/17 11:00 101 33 110/70 95 Nasal Cannula 2.0 08/06/17 10:00 104 35 139/68 93 Nasal Cannula 2.0 08/06/17 09:00 100 35 135/73 95 Nasal Cannula 2.0 08/06/17 08:00 99 35 141/56 95 Nasal Cannula 2.0 08/06/17 08:00 100 08/06/17 08:00 99.5 99.5 08/06/17 07:00 96 32 149/71 97 Nasal Cannula 2.0 08/06/17 06:00 97 37 117/70 97 Nasal Cannula 2.0 08/06/17 05:00 98.3 91 31 116/58 97 Nasal Cannula 2.0 98.3 08/06/17 04:02 93 08/06/17 04:00 98.4 92 34 112/55 97 Nasal Cannula 2.0 98.4 08/06/17 03:00 98.3 91 30 93/61 97 Nasal Cannula 2.0 98.3 08/06/17 02:00 98.9 95 20 113/60 96 Nasal Cannula 2.0 98.9 08/06/17 01:00 98.9 95 20 113/60 96 Nasal Cannula 2.0 98.9 08/06/17 00:00 95 08/06/17 00:00 99.1 95 20 108/55 97 Nasal Cannula 2.0 99.1 08/05/17 23:00 98.7 93 20 105/54 97 Nasal Cannula 2.0 98.7 08/05/17 22:00 99.3 96 22 110/58 97 Nasal Cannula 2.0 99.3 08/05/17 21:00 99.5 98 22 131/55 95 Nasal Cannula 2.0 99.5 08/05/17 20:00 100 08/05/17 20:00 99.7 98 20 117/60 94 Nasal Cannula 2.0 99.7 08/05/17 19:00 80 22 135/65 97 Nasal Cannula 2.0 08/05/17 18:00 88 25 126/60 97 Nasal Cannula 2.0 Intake and Output 08/05/17 08/06/17 19:00 07:00 Intake Total 180 ml 1523.75 ml Output Total 175 ml 280 ml Balance 5 ml 1243.75 ml Free Water 100 ml IV Total 1123.75 ml Tube Feeding 180 ml 300 ml Output Urine Total 175 ml 280 ml # Bowel Movements 3 1 Laboratory Tests 08/06/17 04:00: White Blood Count 18.0H, Red Blood Count 3.85L, Hemoglobin 8.3L, Hematocrit 26.8L, Mean Corpuscular Volume 70L, Mean Corpuscular Hemoglobin 21.7L, Mean Corpuscular Hemoglobin Concent 31.2L, Red Cell Distribution Width 17.5H, Platelet Count 304, Mean Platelet Volume 5.9L, Neutrophils (%) (Auto) , Lymphocytes (%) (Auto) , Monocytes (%) (Auto) , Eosinophils (%) (Auto) , Basophils (%) (Auto) , Differential Total Cells Counted 100, Neutrophils % ( Manual) 86H, Lymphocytes % (Manual) 9L, Monocytes % (Manual) 5, Eosinophils % ( Manual) 0, Basophils % (Manual) 0, Band Neutrophils 0, Platelet Estimate Adequate, Platelet Morphology Normal, Hypochromasia 2+, Anisocytosis 1+, Microcytosis 3+, Reticulocyte Count 1.3, Prothrombin Time 9.5, Prothromb Time International Ratio 0.9, Activated Partial Thromboplast Time 28, Sodium Level 140, Potassium Level 3.3L, Chloride Level 105, Carbon Dioxide Level 22, Anion Gap 13, Blood Urea Nitrogen 48H, Creatinine 4.8H, Estimat Glomerular Filtration Rate 9.6, Glucose Level 301H, Calcium Level 7.8L, Iron Level 20L, Total Iron Binding Capacity 98L, Percent Iron Saturation 20, Unsaturated Iron Binding 78L, Ferritin 196, Carcinoembryonic Antigen [Pending], Vitamin B12 Level > 2000H, Folate 10.8, Thyroid Stimulating Hormone (TSH) 3.210, Free Thyroxine 0.99 08/06/17 06:00: Stool Occult Blood Positive Height (Feet): 5 Height (Inches): 5.00 Weight (Pounds): 331 Objective Obese WW NCAT supple CTA RRR soft obese abd, (+) LLQ Cellulitis (+) edema nonfocal Kulwinder Dela Cruz MD August 06, 2017 17:52
[2017-08-06] MEDS ORDERED: D5NS 1,000 ML IV SCH (19:57)
[2017-08-06] MEDS ORDERED: Acetaminophen 650 MG SUPP RECTAL PRN (19:58)
[2017-08-06] MEDS ORDERED: Dyna-Hex 2% Top Sol 2oz TOPIC SCH ×2 (20:00)
[2017-08-06] MEDS: Dyna-Hex 2% Top Sol 2oz TOPIC SCH (20:40)
[2017-08-06] MEDS: Heparin 5000 units/ml inj SUBQ SCH (22:23)
--- NOTE | 2017-08-06 23:23 | Diagnostic Imaging Report ---
EXAM: XR Chest, 1 View CLINICAL HISTORY: SOB TECHNIQUE: Frontal view of the chest. COMPARISON: No relevant prior studies available. FINDINGS: Lungs: Cannot exclude lower lobe consolidations. Pleural space: Bilateral pleural effusions. No pneumothorax. Heart: Cardiomegaly. Mediastinum: Unremarkable. Bones/joints: Unremarkable. IMPRESSION: 1. Bilateral pleural effusions. 2. Cannot exclude lower lobe consolidations.
[2017-08-07] VITALS: BP 104/65
[2017-08-07 04:00] VITALS: BP 101/55
[2017-08-07] MEDS: NovoLOG Insulin Flexpen SUBQ SCH ×7 (06:27→21:50)
[2017-08-07] MEDS: Heparin 5000 units/ml inj SUBQ SCH ×3 (06:30→23:00)
[2017-08-07 06:34] LABS: ANION GAP 11 mmol/L (5-15); BLOOD UREA NITROGEN 54 mg/dL (7-18); CALCIUM 7.7 MG/DL (8.5-10.1); CARBON DIOXIDE 22 MMOL/L (21-32); CHLORIDE 110 MMOL/L (98-107); CREATININE 5.3 MG/DL (0.55-1.30); SODIUM 143 MMOL/L (136-145)
[2017-08-07 06:47] LABS: PHOSPHORUS 3.5 MG/DL (2.5-4.9)
--- NOTE | 2017-08-07 06:47 | General Progress Note ---
Assessment/Plan Problem List: (1) Cellulitis of abdominal wall ICD Codes: L03.311 - Cellulitis of abdominal wall SNOMED: 85989312 (2) Acute respiratory failure ICD Codes: J96.00 - Acute respiratory failure, unspecified whether with hypoxia or hypercapnia SNOMED: 84978564 (3) New onset type 1 diabetes mellitus, uncontrolled ICD Codes: E10.65 - Type 1 diabetes mellitus with hyperglycemia SNOMED: 356106684 (4) Necrotizing fasciitis ICD Codes: M72.6 - Necrotizing fasciitis SNOMED: 94653365 (5) DKA (diabetic ketoacidoses) ICD Codes: E13.10 - Other specified diabetes mellitus with ketoacidosis without coma SNOMED: 31598466, [id number] Assessment/Plan continue Levemir 20 units bid continue Novolog 6 units ac / hs NISS Subjective Allergies: Coded Allergies: PENICILLINS (Verified Allergy, Unknown, 07/30/17) According to mother, the patient is allergic to Penicillins All Systems: reviewed and negative except above Subjective events noted - transferred to [facility] Objective Last 24 Hour Vital Signs Date Time Temp Pulse Resp B/P (MAP) Pulse Ox O2 Delivery O2 Flow Rate FiO2 08/07/17 05:22 104 33 96 Facial 30 08/07/17 04:00 98.6 123 31 101/55 38 Bi-pap 30 98.6 123 08/07/17 03:37 110 08/07/17 03:27 101 30 95 Facial 30 08/07/17 00:58 96 31 95 Facial 30 08/07/17 00:18 30 08/07/17 00:00 99.7 98 31 104/65 98 Bi-pap 30 99.7 98 08/06/17 23:33 97 08/06/17 22:40 104 40 Bi-pap 30 08/06/17 22:36 105 40 94 Facial 30 08/06/17 21:33 94 Venturi Mask 14.0 55 08/06/17 21:32 Venturi Mask 15.0 55 08/06/17 20:00 101.5 107 36 120/63 93 Nasal Cannula 4.0 101.5 107 08/06/17 19:35 110 08/06/17 19:00 101.5 107 36 120/63 93 Nasal Cannula 4.0 101.5 107 08/06/17 18:00 114 32 138/63 100 Nasal Cannula 4.0 08/06/17 17:00 114 30 104/57 100 Nasal Cannula 4.0 08/06/17 16:00 99.0 110 35 115/72 96 Nasal Cannula 3.0 99.0 08/06/17 16:00 153 08/06/17 16:00 112 08/06/17 15:00 112 31 106/60 96 Nasal Cannula 2.0 08/06/17 14:00 109 32 110/75 96 Nasal Cannula 2.0 08/06/17 13:00 115 30 127/99 95 Nasal Cannula 2.0 08/06/17 12:00 99.5 109 36 89/55 95 Nasal Cannula 2.0 99.5 08/06/17 12:00 109 08/06/17 12:00 101 30 138/96 95 Nasal Cannula 2.0 08/06/17 11:00 101 33 110/70 95 Nasal Cannula 2.0 08/06/17 10:00 104 35 139/68 93 Nasal Cannula 2.0 08/06/17 09:00 100 35 135/73 95 Nasal Cannula 2.0 08/06/17 08:00 99 35 141/56 95 Nasal Cannula 2.0 08/06/17 08:00 100 08/06/17 08:00 99.5 99.5 08/06/17 07:00 96 32 149/71 97 Nasal Cannula 2.0 Intake and Output 08/06/17 08/07/17 19:00 07:00 Intake Total 1555 ml 1330 ml Output Total 270 ml Balance 1285 ml 1330 ml Free Water 100 ml 100 ml IV Total 1175 ml 1110 ml Tube Feeding 280 ml 120 ml Output Urine Total 270 ml # Bowel Movements 1 7 Laboratory Tests 08/06/17 22:10: Arterial Blood pH 7.480H, Arterial Blood Partial Pressure CO2 30.6L, Arterial Blood Partial Pressure O2 78.5, Arterial Blood HCO3 22.6, Arterial Blood Oxygen Saturation 94.9, Arterial Blood Base Excess -0.3, Ravi Test Positive 08/07/17 06:00: Sodium Level 143, Potassium Level 3.0L, Chloride Level 110H, Carbon Dioxide Level 22, Anion Gap 11, Blood Urea Nitrogen 54H, Creatinine 5.3H, Estimat Glomerular Filtration Rate 8.6, Glucose Level 219H, Calcium Level 7.7L, Phosphorus Level [Pending], Magnesium Level [Pending] Height (Feet): 5 Height (Inches): 5.00 Weight (Pounds): 331 General Appearance: no apparent distress Neck: normal alignment Cardiovascular: normal peripheral pulses Respiratory/Chest: lungs clear Abdomen: normal bowel sounds Pelvis: normal external exam Objective Current Medications Medications (Trade) Dose Ordered Sig/Tommy Route PRN Reason Start Time Stop Time Status Last Admin Dose Admin Acetaminophen (Tylenol) 650 mg EVERY 6 HOURS PRN RECTAL Mild Pain (Pain Scale 1-3) 08/06/17 19:58 09/05/17 19:57 Chlorhexidine Gluconate (Idalia-Hex 2%) 1 applic DAILY@2000 TOPIC 08/06/17 20:00 09/05/17 19:59 08/06/17 20:40 Dextrose (Dextrose 50%) 25 ml STAT PRN IV Hypoglycemia 08/06/17 19:58 09/05/17 19:57 Dextrose (Dextrose 50%) 50 ml STAT PRN IV Hypoglycemia 08/06/17 19:58 09/05/17 19:57 Dextrose/Sodium Chloride 1,000 ml @ 75 mls/hr [id number] IV 08/06/17 19:57 08/31/17 19:56 08/06/17 20:40 Heparin Sodium (Porcine) (Heparin 5000 units/ml) 5,000 units Q8H SUBQ 08/06/17 23:00 09/05/17 14:59 08/07/17 06:30 Insulin Aspart (NovoLOG) 6 units NOVOTIAC SUBQ 08/07/17 06:30 09/02/17 16:49 08/07/17 06:28 Insulin Aspart (NovoLOG) Resistance sliding sc... BEFORE MEALS AND HS SUBQ 08/06/17 21:00 09/02/17 16:29 08/07/17 06:27 Insulin Detemir (Levemir) 20 units Q12HR SUBQ 08/07/17 09:00 09/06/17 08:59 Linezolid 300 ml @ 300 mls/hr Q12HR IVPB 08/06/17 21:00 08/09/17 23:59 08/06/17 20:41 Lorazepam (Ativan 2mg/ml 1ml) 1 mg Q4H PRN IV For Anxiety 08/06/17 19:59 08/12/17 19:58 Meropenem 500 mg/ Sodium Chloride 110 ml @ 220 mls/hr Q12HR IVPB 08/06/17 21:00 08/10/17 23:59 08/06/17 20:41 Pantoprazole (Protonix) 40 mg DAILY IVP 08/07/17 09:00 09/06/17 08:59 Silver Sulfadiazine (Silvadene Cream 25gm) 1 applic DAILY TOPIC 08/07/17 09:00 08/31/17 10:29 Item Value Date Time Bedside Blood Glucose 174 mg/dl H 08/07/17 0628 Bedside Blood Glucose 187 mg/dl H 08/06/17 2222 Bedside Blood Glucose 276 mg/dl H 08/06/17 1758 Bedside Blood Glucose 353 mg/dl H 08/06/17 1020 Bedside Blood Glucose 322 mg/dl H 08/06/17 0657 SAQIB TOM August 07, 2017 06:47
--- NOTE | 2017-08-07 07:18 | Pulmonology Progress Note ---
Assessment/Plan Assessment/Plan respiratory failure s/p extubation DKA sepsis abd wall cellulitis PLAN BIPAP on heparin check venous US check BNP lasix x1 follow up abg low flow oxygen monitor for change and recommend from pulm standpoint Subjective Allergies: Coded Allergies: PENICILLINS (Verified Allergy, Unknown, 07/30/17) According to mother, the patient is allergic to Penicillins Subjective respiratory distress overnight on BIPAP improved cxr with / overload Objective Last 24 Hour Vital Signs Date Time Temp Pulse Resp B/P (MAP) Pulse Ox O2 Delivery O2 Flow Rate FiO2 08/07/17 07:11 104 36 94 Facial 30 08/07/17 07:11 94 Bi-pap 30 08/07/17 05:22 104 33 96 Facial 30 08/07/17 04:00 98.6 123 31 101/55 38 Bi-pap 30 98.6 123 08/07/17 03:37 110 08/07/17 03:27 101 30 95 Facial 30 08/07/17 00:58 96 31 95 Facial 30 08/07/17 00:18 30 08/07/17 00:00 99.7 98 31 104/65 98 Bi-pap 30 99.7 98 08/06/17 23:33 97 08/06/17 22:40 104 40 Bi-pap 30 08/06/17 22:36 105 40 94 Facial 30 08/06/17 21:33 94 Venturi Mask 14.0 55 08/06/17 21:32 Venturi Mask 15.0 55 08/06/17 20:00 101.5 107 36 120/63 93 Nasal Cannula 4.0 101.5 107 08/06/17 19:35 110 08/06/17 19:00 101.5 107 36 120/63 93 Nasal Cannula 4.0 101.5 107 08/06/17 18:00 114 32 138/63 100 Nasal Cannula 4.0 08/06/17 17:00 114 30 104/57 100 Nasal Cannula 4.0 08/06/17 16:00 99.0 110 35 115/72 96 Nasal Cannula 3.0 99.0 08/06/17 16:00 153 08/06/17 16:00 112 08/06/17 15:00 112 31 106/60 96 Nasal Cannula 2.0 08/06/17 14:00 109 32 110/75 96 Nasal Cannula 2.0 08/06/17 13:00 115 30 127/99 95 Nasal Cannula 2.0 08/06/17 12:00 99.5 109 36 89/55 95 Nasal Cannula 2.0 99.5 08/06/17 12:00 109 08/06/17 12:00 101 30 138/96 95 Nasal Cannula 2.0 08/06/17 11:00 101 33 110/70 95 Nasal Cannula 2.0 08/06/17 10:00 104 35 139/68 93 Nasal Cannula 2.0 08/06/17 09:00 100 35 135/73 95 Nasal Cannula 2.0 08/06/17 08:00 99 35 141/56 95 Nasal Cannula 2.0 08/06/17 08:00 100 08/06/17 08:00 99.5 99.5 Intake and Output 08/06/17 08/07/17 19:00 07:00 Intake Total 1555 ml 1665 ml Output Total 270 ml 350 ml Balance 1285 ml 1315 ml Free Water 100 ml 200 ml IV Total 1175 ml 1185 ml Tube Feeding 280 ml 280 ml Output Urine Total 270 ml 350 ml # Bowel Movements 1 7 Objective WDWN on bipap NAD reduced breath sounds bilaterally without rhonchi or wheeze [id number] without MRG NABS nontender no HSM no CC edema nonfocal Microbiology Date/Time Source Procedure Growth Status 08/05/17 03:00 Stool Clostridium difficile Toxin Assay - Final Complete Laboratory Tests 08/06/17 22:10: Arterial Blood pH 7.480H, Arterial Blood Partial Pressure CO2 30.6L, Arterial Blood Partial Pressure O2 78.5, Arterial Blood HCO3 22.6, Arterial Blood Oxygen Saturation 94.9, Arterial Blood Base Excess -0.3, Ravi Test Positive 08/07/17 06:00: Sodium Level 143, Potassium Level 3.0L, Chloride Level 110H, Carbon Dioxide Level 22, Anion Gap 11, Blood Urea Nitrogen 54H, Creatinine 5.3H, Estimat Glomerular Filtration Rate 8.6, Glucose Level 219H, Calcium Level 7.7L, Phosphorus Level 3.5, Magnesium Level 2.0 Current Medications Medications (Trade) Dose Ordered Sig/Tommy Route PRN Reason Start Time Stop Time Status Last Admin Dose Admin Acetaminophen (Tylenol) 650 mg EVERY 6 HOURS PRN RECTAL Mild Pain (Pain Scale 1-3) 08/06/17 19:58 09/05/17 19:57 Chlorhexidine Gluconate (Idalia-Hex 2%) 1 applic DAILY@2000 TOPIC 08/06/17 20:00 09/05/17 19:59 08/06/17 20:40 Dextrose (Dextrose 50%) 25 ml STAT PRN IV Hypoglycemia 08/06/17 19:58 09/05/17 19:57 Dextrose (Dextrose 50%) 50 ml STAT PRN IV Hypoglycemia 08/06/17 19:58 09/05/17 19:57 Dextrose/Sodium Chloride 1,000 ml @ 75 mls/hr [id number] IV 08/06/17 19:57 08/31/17 19:56 08/06/17 20:40 Heparin Sodium (Porcine) (Heparin 5000 units/ml) 5,000 units Q8H SUBQ 08/06/17 23:00 09/05/17 14:59 08/07/17 06:30 Insulin Aspart (NovoLOG) 6 units NOVOTIAC SUBQ 08/07/17 06:30 09/02/17 16:49 08/07/17 06:28 Insulin Aspart (NovoLOG) Resistance sliding sc... BEFORE MEALS AND HS SUBQ 08/06/17 21:00 09/02/17 16:29 08/07/17 06:27 Insulin Detemir (Levemir) 20 units Q12HR SUBQ 08/07/17 09:00 09/06/17 08:59 Linezolid 300 ml @ 300 mls/hr Q12HR IVPB 08/06/17 21:00 08/09/17 23:59 08/06/17 20:41 Lorazepam (Ativan 2mg/ml 1ml) 1 mg Q4H PRN IV For Anxiety 08/06/17 19:59 08/12/17 19:58 Meropenem 500 mg/ Sodium Chloride 110 ml @ 220 mls/hr Q12HR IVPB 08/06/17 21:00 08/10/17 23:59 08/06/17 20:41 Pantoprazole (Protonix) 40 mg DAILY IVP 08/07/17 09:00 09/06/17 08:59 Silver Sulfadiazine (Silvadene Cream 25gm) 1 applic DAILY TOPIC 08/07/17 09:00 08/31/17 10:29 Stew Hopson MD August 07, 2017 07:18
[2017-08-07 08:00] VITALS: BP 143/75
[2017-08-07] MEDS ORDERED: Pantoprazole Inj IVP SCH ×3 (09:00)
--- NOTE | 2017-08-07 09:07 | Nephrology Progress Note ---
Assessment/Plan Assessment/Plan 1. SCARLET- ATN non resolving. HD today for volume control as patient SOB this am - multifact ATN (sepsis induced inflammotory cytokine prox tub damage/ ishchemic ATN hypotension/vol dep) - HD today 2. DKA/Met Acidosis- due hypoperfusion and renal insufficiency - resolved 3. Septic Shock- etiology likely from abd cellulitis. Abx mgmt per ID. - Gen Surg mgmt of abdomen paniculitis. 4. Hypotension- resolved. 5. Resp FL- extubated but patient SOB - HD with 3 L UF and DC IVF's 6. Hypok+/Ca/Phos- replace K+ and HD on 4 K+ 7. Anemia- mgmt per GI Subjective Date patient seen: August 07, 2017 Time patient seen: 09:03 ROS Limited/Unobtainable: No Respiratory: Reports: shortness of breath Allergies: Coded Allergies: PENICILLINS (Verified Allergy, Unknown, 07/30/17) According to mother, the patient is allergic to Penicillins All Systems: reviewed and negative except above Subjective Patient extubated. On BiPAP. SOB. No CP/N/V Objective Last 24 Hour Vital Signs Date Time Temp Pulse Resp B/P (MAP) Pulse Ox O2 Delivery O2 Flow Rate FiO2 08/07/17 08:00 104 08/07/17 08:00 100.7 104 39 143/75 100 Bi-pap 30 100.7 104 08/07/17 07:11 104 36 94 Facial 30 08/07/17 07:11 94 Bi-pap 30 08/07/17 05:22 104 33 96 Facial 30 08/07/17 04:00 98.6 123 31 101/55 38 Bi-pap 30 98.6 123 08/07/17 03:37 110 08/07/17 03:27 101 30 95 Facial 30 08/07/17 00:58 96 31 95 Facial 30 08/07/17 00:18 30 08/07/17 00:00 99.7 98 31 104/65 98 Bi-pap 30 99.7 98 08/06/17 23:33 97 08/06/17 22:40 104 40 Bi-pap 30 08/06/17 22:36 105 40 94 Facial 30 08/06/17 21:33 94 Venturi Mask 14.0 55 08/06/17 21:32 Venturi Mask 15.0 55 08/06/17 20:00 101.5 107 36 120/63 93 Nasal Cannula 4.0 101.5 107 08/06/17 19:35 110 08/06/17 19:00 101.5 107 36 120/63 93 Nasal Cannula 4.0 101.5 107 08/06/17 18:00 114 32 138/63 100 Nasal Cannula 4.0 08/06/17 17:00 114 30 104/57 100 Nasal Cannula 4.0 08/06/17 16:00 99.0 110 35 115/72 96 Nasal Cannula 3.0 99.0 08/06/17 16:00 153 08/06/17 16:00 112 08/06/17 15:00 112 31 106/60 96 Nasal Cannula 2.0 08/06/17 14:00 109 32 110/75 96 Nasal Cannula 2.0 08/06/17 13:00 115 30 127/99 95 Nasal Cannula 2.0 08/06/17 12:00 99.5 109 36 89/55 95 Nasal Cannula 2.0 99.5 08/06/17 12:00 109 08/06/17 12:00 101 30 138/96 95 Nasal Cannula 2.0 08/06/17 11:00 101 33 110/70 95 Nasal Cannula 2.0 08/06/17 10:00 104 35 139/68 93 Nasal Cannula 2.0 Intake and Output 08/06/17 08/07/17 19:00 07:00 Intake Total 1555 ml 1665 ml Output Total 270 ml 350 ml Balance 1285 ml 1315 ml Free Water 100 ml 200 ml IV Total 1175 ml 1185 ml Tube Feeding 280 ml 280 ml Output Urine Total 270 ml 350 ml # Bowel Movements 1 7 Laboratory Tests 08/06/17 22:10: Arterial Blood pH 7.480H, Arterial Blood Partial Pressure CO2 30.6L, Arterial Blood Partial Pressure O2 78.5, Arterial Blood HCO3 22.6, Arterial Blood Oxygen Saturation 94.9, Arterial Blood Base Excess -0.3, Ravi Test Positive 08/07/17 06:00: Sodium Level 143, Potassium Level 3.0L, Chloride Level 110H, Carbon Dioxide Level 22, Anion Gap 11, Blood Urea Nitrogen 54H, Creatinine 5.3H, Estimat Glomerular Filtration Rate 8.6, Glucose Level 219H, Calcium Level 7.7L, Phosphorus Level 3.5, Magnesium Level 2.0 08/07/17 07:16: Arterial Blood pH 7.508H, Arterial Blood Partial Pressure CO2 31.9L, Arterial Blood Partial Pressure O2 75.8, Arterial Blood HCO3 24.8, Arterial Blood Oxygen Saturation 94.7, Arterial Blood Base Excess 1.9, Ravi Test Positive Height (Feet): 5 Height (Inches): 5.00 Weight (Pounds): 341 General Appearance: WD/WN, mild distress EENT: PERRL/EOMI, normal ENT inspection Neck: non-tender, normal alignment Cardiovascular: normal peripheral pulses, normal rate Respiratory/Chest: rhonchi - bilaterally, expiratory wheezing Abdomen: non tender, soft Edema: 2+ Arm (L), 2+ Arm (R), 2+ Leg (L), 2+ Leg (R), 2+ Pedal (L), 2+ Pedal ( R), 2+ Generalized Carlton Guzmán M.D. August 07, 2017 09:07
[2017-08-07] MEDS: Meropenem 500 MG in NS 110 ML IVPB SCH ×2 (10:30→21:46)
[2017-08-07] MEDS: LORazepam Inj 2mg/ml 1ml IV PRN ×2 (10:34→19:00)
[2017-08-07] MEDS ORDERED: Acetaminophen 650 MG SUPP RECTAL PRN (10:45)
[2017-08-07] MEDS: Levemir Flexpen SUBQ SCH ×2 (10:59→21:49)
[2017-08-07 11:26] LABS: HEMATOCRIT 27.5 % (37.0-47.0); HEMOGLOBIN 8.7 G/DL (12.0-16.0); MEAN CORPUSCULAR VOLUME 70 FL (80-99); PLATELET COUNT 305 K/UL (150-450); RED BLOOD COUNT 3.96 M/UL (4.20-5.40); RED CELL DISTRIBUTION WIDTH 18.1 % (11.6-14.8)
[2017-08-07 12:02] VITALS: BP 133/72
--- NOTE | 2017-08-07 13:24 | Infectious Diseases Prog Note ---
Assessment/Plan Problems: (1) Cellulitis of abdominal wall Assessment & Plan: complicated with panniculitis, now a little worse due to significant lymphedema in the abdominal skin and fluids retention , pelletizer tender mainly in the left lower abdomen , groin and left labium , will need aggressive HD to improve her lymphedema and cellulitis , will continue meropenem and zyvox empiric coverage for now , surgery has been following , repeated blood culture is negative so far (2) UTI (urinary tract infection) Assessment & Plan: culture grew strep agalactiae and staph aureus , she is already on meropenem and zyvox (3) Pharyngitis, acute Assessment & Plan: already on zosyn (4) Septic shock Assessment & Plan: due to the above , improving , off pressor today , blood culture is still negative , with leukocytosis , now on meropenem and zyvox , await repeated blood culture , monitor WBC (5) Acute respiratory failure Assessment & Plan: due to the above, S/P extubated , now on BIPAP due to hypoxemia and fluids in the lungs , with pleural effusion , monitor ABG and CXR , continue aggressive HD , pulmonary is following (6) SCARLET (acute kidney injury) Assessment & Plan: now with ESRD , due to the above, started on HD , with no improvement in her urine output , nephrology is following, monitor UOP (7) DKA (diabetic ketoacidoses) Assessment & Plan: due to poorly controlled diabetes and sepsis, S/P insulin drip in the ICU , continue close monitor of her blood glucose to keep between 80 -120 (8) Leg wound, left Assessment & Plan: with infection due to staph aureus and klebsiella oxytoca, already on meropenem and zyvox , continue local wound care as per hospital protocol , bone scan to rule out underlying osteomyelitis is pending Subjective Constitutional: Reports: fever, fatigue HEENT: Reports: no symptoms Respiratory: Reports: shortness of breath, dry cough Breasts: Reports: no symptoms Cardiovascular: Reports: no symptoms Gastrointestinal/Abdominal: Reports: diarrhea Genitourinary: Reports: no symptoms Neurologic: Reports: weakness Psychiatric: Reports: no symptoms Skin: Reports: other - red and tender on the left lower abdomen Endocrine: Reports: feels warm Hematologic: Reports: no symptoms Musculoskeletal: Reports: swelling Allergies: Coded Allergies: PENICILLINS (Verified Allergy, Unknown, 07/30/17) According to mother, the patient is allergic to Penicillins Subjective she was on facial BIPAP , awake and responsive . denied any pain , spiked fever today again with worsening lymphedema in her lower abdomen skin and redness . less on the inner thighs, left groin lymphadenopathy , small skin breaks with blisters drying out at the folds site . right femoral line is not withdrawing blood Objective Vital Signs Last 24 Hour Vital Signs Date Time Temp Pulse Resp B/P (MAP) Pulse Ox O2 Delivery O2 Flow Rate FiO2 08/07/17 12:47 103 34 99 Full Face 30 08/07/17 12:02 100.1 101 39 133/72 96 Bi-pap 30 100.1 101 08/07/17 12:00 103 08/07/17 10:42 105 42 94 Full Face 30 08/07/17 10:31 100.7 08/07/17 09:05 106 36 95 Full Face 30 08/07/17 08:00 104 08/07/17 08:00 100.7 104 39 143/75 100 Bi-pap 30 100.7 104 08/07/17 07:11 104 36 94 Facial 30 08/07/17 07:11 94 Bi-pap 30 08/07/17 05:22 104 33 96 Facial 30 08/07/17 04:00 98.6 123 31 101/55 38 Bi-pap 30 98.6 123 08/07/17 03:37 110 08/07/17 03:27 101 30 95 Facial 30 08/07/17 00:58 96 31 95 Facial 30 08/07/17 00:18 30 08/07/17 00:00 99.7 98 31 104/65 98 Bi-pap 30 99.7 98 08/06/17 23:33 97 08/06/17 22:40 104 40 Bi-pap 30 08/06/17 22:36 105 40 94 Facial 30 08/06/17 21:33 94 Venturi Mask 14.0 55 08/06/17 21:32 Venturi Mask 15.0 55 08/06/17 20:00 101.5 107 36 120/63 93 Nasal Cannula 4.0 101.5 107 08/06/17 19:35 110 08/06/17 19:00 101.5 107 36 120/63 93 Nasal Cannula 4.0 101.5 107 08/06/17 18:00 114 32 138/63 100 Nasal Cannula 4.0 08/06/17 17:00 114 30 104/57 100 Nasal Cannula 4.0 08/06/17 16:00 99.0 110 35 115/72 96 Nasal Cannula 3.0 99.0 08/06/17 16:00 153 08/06/17 16:00 112 08/06/17 15:00 112 31 106/60 96 Nasal Cannula 2.0 08/06/17 14:00 109 32 110/75 96 Nasal Cannula 2.0 Height (Feet): 5 Height (Inches): 5.00 Weight (Pounds): 341 General Appearance: WD/WN, no acute distress HEENT: normocephalic, atraumatic, anicteric, mucous membranes moist, PERRL Respiratory/Chest: chest wall non-tender, normal breath sounds, no respiratory distress, no accessory muscle use, decreased breath sounds, crackles/rales Cardiovascular: normal peripheral pulses, normal rate, regular rhythm, no gallop/murmur, no JVD Abdomen: no organomegaly, non distended, no mass, no scars, hypoactive bowel sounds, distended, tender, other - left lower abdomen and left hip side with significant lymphedema with purpule discoloration Genitourinary: normal external genitalia Extremities: no cyanosis, no clubbing Skin: no rash, no lesions, other - significant lymphedema on the left lower abdomen , legs and pelvic area Neurologic/Psychiatric: alert, responsive Lymphatic: no neck adenopathy, no groin adenopathy Musculoskeletal: normal muscle bulk Microbiology Date/Time Source Procedure Growth Status 08/05/17 03:00 Stool Clostridium difficile Toxin Assay - Final Complete Laboratory Tests Test 08/06/17 22:10 08/07/17 06:00 08/07/17 07:16 08/07/17 10:35 Arterial Blood pH 7.480 (7.350-7.450) 7.508 (7.350-7.450) Arterial Blood Partial Pressure CO2 30.6 mmHg (35.0-45.0) L 31.9 mmHg (35.0-45.0) L Arterial Blood Partial Pressure O2 78.5 mmHg (75.0-100.0) 75.8 mmHg (75.0-100.0) Arterial Blood HCO3 22.6 mmol/L (22.0-26.0) 24.8 mmol/L (22.0-26.0) Arterial Blood Oxygen Saturation 94.9 % (92.0-98.0) 94.7 % (92.0-98.0) Arterial Blood Base Excess -0.3 1.9 Ravi Test Positive Positive Sodium Level 143 MMOL/L (136-145) Potassium Level 3.0 MMOL/L (3.5-5.1) L Chloride Level 110 MMOL/L (98-107) H Carbon Dioxide Level 22 MMOL/L (21-32) Anion Gap 11 mmol/L (5-15) Blood Urea Nitrogen 54 mg/dL (7-18) H Creatinine 5.3 MG/DL (0.55-1.30) H Estimat Glomerular Filtration Rate 8.6 mL/min (>60) Glucose Level 219 MG/DL (74-106) H Calcium Level 7.7 MG/DL (8.5-10.1) L Phosphorus Level 3.5 MG/DL (2.5-4.9) Magnesium Level 2.0 MG/DL (1.8-2.4) White Blood Count 18.0 K/UL (4.8-10.8) H Red Blood Count 3.96 M/UL (4.20-5.40) L Hemoglobin 8.7 G/DL (12.0-16.0) L Hematocrit 27.5 % (37.0-47.0) L Mean Corpuscular Volume 70 FL (80-99) L Mean Corpuscular Hemoglobin 21.9 PG (27.0-31.0) L Mean Corpuscular Hemoglobin Concent 31.5 G/DL (32.0-36.0) L Red Cell Distribution Width 18.1 % (11.6-14.8) H Platelet Count 305 K/UL (150-450) Mean Platelet Volume 6.0 FL (6.5-10.1) L Neutrophils (%) (Auto) % (45.0-75.0) Lymphocytes (%) (Auto) % (20.0-45.0) Monocytes (%) (Auto) % (1.0-10.0) Eosinophils (%) (Auto) % (0.0-3.0) Basophils (%) (Auto) % (0.0-2.0) Differential Total Cells Counted 100 Neutrophils % (Manual) 92 % (45-75) H Lymphocytes % (Manual) 6 % (20-45) L Monocytes % (Manual) 1 % (1-10) Eosinophils % (Manual) 0 % (0-3) Basophils % (Manual) 0 % (0-2) Band Neutrophils 1 % (0-8) Platelet Estimate Adequate Platelet Morphology Normal Hypochromasia 1+ Anisocytosis 1+ Microcytosis 1+ Pro-B-Type Natriuretic Peptide 61354 pg/mL (0-125) H Current Medications Medications (Trade) Dose Ordered Sig/Tommy Route PRN Reason Start Time Stop Time Status Last Admin Dose Admin Acetaminophen (Tylenol) 650 mg EVERY 6 HOURS PRN RECTAL Prn pain/Temp > 100.5 08/07/17 10:45 09/05/17 19:57 Chlorhexidine Gluconate (Idalia-Hex 2%) 1 applic DAILY@2000 TOPIC 08/06/17 20:00 09/05/17 19:59 08/06/17 20:40 Dextrose (Dextrose 50%) 25 ml STAT PRN IV Hypoglycemia 08/06/17 19:58 09/05/17 19:57 Dextrose (Dextrose 50%) 50 ml STAT PRN IV Hypoglycemia 08/06/17 19:58 09/05/17 19:57 Heparin Sodium (Porcine) (Heparin 5000 units/ml) 5,000 units Q8H SUBQ 08/06/17 23:00 09/05/17 14:59 08/07/17 06:30 Insulin Aspart (NovoLOG) 6 units NOVOTIAC SUBQ 08/07/17 06:30 09/02/17 16:49 08/07/17 11:00 Insulin Aspart (NovoLOG) Resistance sliding sc... BEFORE MEALS AND HS SUBQ 08/06/17 21:00 09/02/17 16:29 08/07/17 11:01 Insulin Detemir (Levemir) 20 units Q12HR SUBQ 08/07/17 09:00 09/06/17 08:59 08/07/17 10:59 Linezolid 300 ml @ 300 mls/hr Q12HR IVPB 08/06/17 21:00 08/09/17 23:59 08/07/17 10:30 Lorazepam (Ativan 2mg/ml 1ml) 1 mg Q4H PRN IV For Anxiety 08/06/17 19:59 08/12/17 19:58 08/07/17 10:34 Meropenem 500 mg/ Sodium Chloride 110 ml @ 220 mls/hr Q12HR IVPB 08/06/17 21:00 08/10/17 23:59 08/07/17 10:30 Pantoprazole (Protonix) 40 mg DAILY IVP 08/07/17 09:00 09/06/17 08:59 08/07/17 10:34 Potassium Chloride 100 ml @ 50 mls/hr ONCE ONCE IVPB 08/07/17 11:30 08/07/17 13:29 08/07/17 11:55 Silver Sulfadiazine (Silvadene Cream 25gm) 1 applic DAILY TOPIC 08/07/17 09:00 08/31/17 10:29 08/07/17 11:10 Johanny Colbert M.D. August 07, 2017 13:24
[2017-08-07 16:00] VITALS: BP 102/43
[2017-08-07] MEDS ORDERED: Tubing IV Secondary IV ONE (16:13)
[2017-08-07] MEDS ORDERED: D5NS 1000ml IV ONE ×2 (16:13→16:27)
[2017-08-07 20:00] VITALS: BP 109/68
[2017-08-07] MEDS ORDERED: LORazepam Inj 2mg/ml 1ml IV PRN (21:00)
[2017-08-07] MEDS: Dyna-Hex 2% Top Sol 2oz TOPIC SCH (21:51)
[2017-08-08] VITALS (36 sets, daily range): BP systolic 62–159; BP diastolic 22–106
[2017-08-08] MEDS ORDERED: LORazepam Inj 2mg/ml 1ml IV PRN (01:00)
--- NOTE | 2017-08-08 01:49 | Emergency Room Report ---
History of Present Illness General Chief Complaint: Dizziness Source: Medical Record Present Illness HPI This is a 46-year-old female who is morbidly obese. She was admitted to the ICU for septic shock and renal failure. She had dialysis and was recently transferred to the stepdown unit. A CODE BLUE was called. According to nursing staff, she keep removing her BiPAP mask and desaturated and then had cardiac arrest. A CODE BLUE was called. On my arrival CPR was in progress. She had already received 1 mg of epinephrine. I proceeded to intubate the patient. She received a total of 2 mg of epinephrine and 1 amp of bicarbonate. Afterward, she regained spontaneous pulse. Patient was then placed on a ventilator and transferred ICU. Please see the code sheet for full information. Allergies: Coded Allergies: PENICILLINS (Verified Allergy, Unknown, 07/30/17) According to mother, the patient is allergic to Penicillins Patient History Now: No Nursing Documentation-PM Past Medical History: No History, Except For Hx Cardiac Problems: No Hx Cancer: No Hx Gastrointestinal Problems: No Hx Neurological Problems: No Review of Systems Respiratory: Reports: shortness of breath All Other Systems: limited - secondary to condition Physical Exam Vital Signs Date Time Temp Pulse Resp B/P (MAP) Pulse Ox O2 Delivery O2 Flow Rate FiO2 08/04/17 07:00 28 08/04/17 07:00 88 101/48 100 Mechanical Ventilator 40 08/04/17 07:30 99.0 99.0 08/05/17 09:00 2.0 Sp02 EP Interpretation: abnormal General Appearance: severe distress, other - unresponsive Head: normocephalic, atraumatic Eyes: bilateral eye PERRL - sluggish ENT: other - frothy mucus in mouth Neck: supple Respiratory: other - no spontaneous respiration, Cardiovascular #1: other - Doppler pulse with CPR Gastrointestinal: soft Genitourinary: other - Shepherd Neurologic: other - no response Skin: normal inspection Procedures Critical Care Time Critical Care Time Critical care is mandated in this patient who presented with cardiac arrest secondary respiratory arrest. Patient require my urgent intervention to attenuate the risks of metabolic collapse which may lead to cardiovascular collapse and . Critical care time is 35 minutes excluding any reportable procedure. Critical care time included evaluation, multiple reevaluation, looking at old charts, interpreting laboratory and diagnostic data, discussing case with patient and family and consultants, and charting. Intubation Intubation : Consent: Emergent Intubation Method: orotracheal Tube Size (cm): 7.5 Breath Sounds after Intubation: equal Intubation Complications: no complications Post Intubation Xray: Yes Progress/Xray Impression: endotracheal tube in good decision Attempts: One Patient Tolerated: Well Complications: None Medical Decision Making Diagnostic Impression: Primary Impression: Cardiac arrest Additional Impression: Respiratory failure requiring intubation Chest X-Ray Diagnostic Results Chest X-Ray Diagnostic Results : Chest X-Ray Ordered: Yes # of Views/Limited/Complete: 1 View Indication: Shortness of Breath EP Interpretation: Yes Interpretation: no pneumothorax, other - endotracheal tube in good position. Effusion Impression: Other - successful intubation. Electronically Signed by: Vidal Gonzalez MD Last Vital Signs Date Time Temp Pulse Resp B/P (MAP) Pulse Ox O2 Delivery O2 Flow Rate FiO2 08/08/17 01:41 67/16 08/08/17 00:58 126 28 100 08/07/17 22:46 98 Full Face 08/07/17 20:00 98.7 98.7 08/07/17 16:35 14.0 Status: improved Disposition: ADMITTED INPATIENT Condition: Critical Referrals: NOT CHOSEN MARY ELLEN/,REFERRING (PCP) VIDAL GONZALEZ M.D. August 08, 2017 01:49
[2017-08-08] MEDS ORDERED: Lidocaine 1% Plain 30 ml INJ ONE (05:30)
[2017-08-08] MEDS ORDERED: Heparin 2000 units/Ns 1000ml INJ ONE (05:30)
[2017-08-08] MEDS ORDERED: Acetaminophen 650 MG SUPP RECTAL PRN (06:00)
[2017-08-08 06:14] LABS: HEMATOCRIT 23.7 % (37.0-47.0); HEMOGLOBIN 7.5 G/DL (12.0-16.0); MEAN CORPUSCULAR VOLUME 70 FL (80-99); PLATELET COUNT 281 K/UL (150-450); RED BLOOD COUNT 3.38 M/UL (4.20-5.40); RED CELL DISTRIBUTION WIDTH 18.6 % (11.6-14.8)
[2017-08-08 06:24] LABS: WHITE BLOOD COUNT 24.5 K/UL (4.8-10.8)
[2017-08-08 06:26] LABS: ANION GAP 7 mmol/L (5-15); BLOOD UREA NITROGEN 52 mg/dL (7-18); CALCIUM 8.1 MG/DL (8.5-10.1); CARBON DIOXIDE 29 MMOL/L (21-32); CHLORIDE 107 MMOL/L (98-107); CREATININE 5.1 MG/DL (0.55-1.30); POTASSIUM 3.7 MMOL/L (3.5-5.1); SODIUM 143 MMOL/L (136-145)
[2017-08-08] MEDS: NovoLOG Insulin Flexpen SUBQ SCH ×7 (06:34→21:00)
[2017-08-08] MEDS: Heparin 5000 units/ml inj SUBQ SCH ×3 (06:38→23:27)
--- NOTE | 2017-08-08 07:58 | Nephrology Progress Note ---
Assessment/Plan Assessment/Plan 1. SCARLET- ATN non resolving. HD today again. On IV pressor , will attempt on 2 L UF. Patient requires CVVH, request transfer to [facility] - multifact ATN (sepsis induced inflammotory cytokine prox tub damage/ ishchemic ATN hypotension/vol dep) - HD today for volume control and close monitoring of hemodynamic status 2. DKA/Met Acidosis- due hypoperfusion and renal insufficiency - resolved 3. Septic Shock- etiology likely from abd cellulitis. Abx mgmt per ID. - Gen Surg mgmt of abdomen paniculitis. - needs UF to assist with Abx penetration due to anasarca 4. Hypotension- resolved. 5. Resp FL- re-intubated - HD and attempt 2 L UF 6. Hypok+/Ca/Phos- replace prn 7. Anemia- mgmt per GI as Hgb 7.5 Subjective Date patient seen: August 08, 2017 Time patient seen: 07:54 ROS Limited/Unobtainable: No Respiratory: Reports: shortness of breath Allergies: Coded Allergies: PENICILLINS (Verified Allergy, Unknown, 07/30/17) According to mother, the patient is allergic to Penicillins Subjective Patient intubated post respiratory arrest Objective Last 24 Hour Vital Signs Date Time Temp Pulse Resp B/P (MAP) Pulse Ox O2 Delivery O2 Flow Rate FiO2 08/08/17 06:00 115/56 08/08/17 06:00 90 18 115/56 97 Mechanical Ventilator 30 08/08/17 05:30 84 23 138/72 97 Mechanical Ventilator 30 08/08/17 05:29 84 28 50 08/08/17 05:00 83 30 118/66 98 Mechanical Ventilator 30 08/08/17 05:00 118/66 08/08/17 04:30 76 23 116/64 97 Mechanical Ventilator 30 08/08/17 04:00 99.0 78 19 105/67 96 Mechanical Ventilator 30 99.0 08/08/17 04:00 105/67 08/08/17 04:00 78 08/08/17 03:30 80 18 98/57 96 Mechanical Ventilator 30 08/08/17 03:17 80 25 50 08/08/17 03:00 74 25 144/85 97 Mechanical Ventilator 30 08/08/17 03:00 134/75 08/08/17 02:30 72 16 134/75 96 Mechanical Ventilator 30 08/08/17 02:00 62 16 143/82 95 Mechanical Ventilator 30 08/08/17 02:00 179/82 08/08/17 01:45 62 16 159/106 95 Mechanical Ventilator 30 08/08/17 01:41 67/16 08/08/17 01:30 82 16 122/33 94 Mechanical Ventilator 30 08/08/17 01:15 85 16 62/22 97 Mechanical Ventilator 30 08/08/17 01:00 90 19 84/36 95 Mechanical Ventilator 30 08/08/17 00:58 126 28 100 08/08/17 00:19 100 08/08/17 00:00 96 08/08/17 00:00 98.7 122 25 128/76 100 Mechanical Ventilator 30 98.7 08/07/17 23:34 129 35 100 08/07/17 22:46 110 30 98 Full Face 30 08/07/17 20:46 102 34 99 Full Face 30 08/07/17 20:13 120 08/07/17 20:00 98.7 126 32 109/68 88 Bi-pap 30 98.7 126 08/07/17 18:55 106 32 100 Full Face 30 08/07/17 16:59 104 30 100 Full Face 30 08/07/17 16:35 Bi-pap 14.0 30 08/07/17 16:00 97.3 109 34 102/43 97 Bi-pap 30 97.3 109 08/07/17 16:00 108 08/07/17 14:38 108 34 95 Full Face 30 08/07/17 13:58 106 24 99 28 08/07/17 12:47 103 34 99 Full Face 30 08/07/17 12:45 Bi-pap 14.0 30 08/07/17 12:02 100.1 101 39 133/72 96 Bi-pap 30 100.1 101 08/07/17 12:00 103 08/07/17 10:42 105 42 94 Full Face 30 08/07/17 10:31 100.7 08/07/17 09:05 106 36 95 Full Face 30 08/07/17 08:00 104 08/07/17 08:00 100.7 104 39 143/75 100 Bi-pap 30 100.7 104 Intake and Output 08/07/17 08/08/17 19:00 07:00 Intake Total 550 ml 387.50 ml Output Total 3350 ml Balance -2800 ml 387.50 ml Free Water 50 ml IV Total 510 ml 97.50 ml Tube Feeding 40 ml 240 ml Hemodialysis UF 3350 ml # Voids 270 # Bowel Movements 1 Laboratory Tests 08/07/17 10:35: White Blood Count 18.0H, Red Blood Count 3.96L, Hemoglobin 8.7L, Hematocrit 27.5L, Mean Corpuscular Volume 70L, Mean Corpuscular Hemoglobin 21.9L, Mean Corpuscular Hemoglobin Concent 31.5L, Red Cell Distribution Width 18.1H, Platelet Count 305, Mean Platelet Volume 6.0L, Neutrophils (%) (Auto) , Lymphocytes (%) (Auto) , Monocytes (%) (Auto) , Eosinophils (%) (Auto) , Basophils (%) (Auto) , Differential Total Cells Counted 100, Neutrophils % ( Manual) 92H, Lymphocytes % (Manual) 6L, Monocytes % (Manual) 1, Eosinophils % ( Manual) 0, Basophils % (Manual) 0, Band Neutrophils 1, Platelet Estimate Adequate, Platelet Morphology Normal, Hypochromasia 1+, Anisocytosis 1+, Microcytosis 1+, Pro-B-Type Natriuretic Peptide [id number] 08/08/17 00:14: Arterial Blood pH 7.338L, Arterial Blood Partial Pressure CO2 52.9H, Arterial Blood Partial Pressure O2 300.1H, Arterial Blood HCO3 27.8H, Arterial Blood Oxygen Saturation 98.9H, Arterial Blood Base Excess 1.5, Ravi Test Positive 08/08/17 05:30: White Blood Count 24.5*H, Red Blood Count 3.38L, Hemoglobin 7.5L, Hematocrit 23.7L, Mean Corpuscular Volume 70L, Mean Corpuscular Hemoglobin 22.1L, Mean Corpuscular Hemoglobin Concent 31.6L, Red Cell Distribution Width 18.6H, Platelet Count 281, Mean Platelet Volume 5.8L, Neutrophils (%) (Auto) , Lymphocytes (%) (Auto) , Monocytes (%) (Auto) , Eosinophils (%) (Auto) , Basophils (%) (Auto) , Neutrophils % (Manual) [Pending], Lymphocytes % (Manual) [Pending], Platelet Estimate [Pending], Platelet Morphology [Pending], Sodium Level 143, Potassium Level 3.7, Chloride Level 107, Carbon Dioxide Level 29, Anion Gap 7, Blood Urea Nitrogen 52H, Creatinine 5.1H, Estimat Glomerular Filtration Rate 9.1, Glucose Level 178H, Calcium Level 8.1L Height (Feet): 5 Height (Inches): 5.00 Weight (Pounds): 330 General Appearance: WD/WN, no apparent distress EENT: PERRL/EOMI, normal ENT inspection Neck: non-tender, normal alignment Cardiovascular: normal peripheral pulses, regular rhythm Respiratory/Chest: chest wall non-tender, lungs clear Abdomen: normal bowel sounds, non tender Edema: 3+ Arm (L), 3+ Arm (R), 3+ Leg (L), 3+ Leg (R), 3+ Pedal (L), 3+ Pedal ( R), 3+ Generalized Carlton Guzmán M.D. August 08, 2017 07:58
[2017-08-08] MEDS: Pantoprazole Inj IVP SCH (08:17)
[2017-08-08] MEDS: Meropenem 500 MG in NS 110 ML IVPB SCH ×2 (08:18→21:00)
[2017-08-08] MEDS: Levemir Flexpen SUBQ SCH ×2 (09:28→21:26)
--- NOTE | 2017-08-08 10:33 | Pulmonology Progress Note ---
Assessment/Plan Assessment/Plan respiratory failure s/p extubation and now with reintubation DKA sepsis abd wall cellulitis fluid overload effusions and edema PLAN vent support consider wean in am on heparin check venous US check BNP lasix x1 repeat and follow up cxr for change follow up abg low flow oxygen monitor for change and recommend from pulm standpoint Subjective ROS Limited/Unobtainable: Yes Allergies: Coded Allergies: PENICILLINS (Verified Allergy, Unknown, 07/30/17) According to mother, the patient is allergic to Penicillins Subjective respiratory distress overnight required intubation no loss of pulse Objective Last 24 Hour Vital Signs Date Time Temp Pulse Resp B/P (MAP) Pulse Ox O2 Delivery O2 Flow Rate FiO2 08/08/17 10:00 89 24 105/45 99 Mechanical Ventilator 30 08/08/17 09:30 88 26 93/52 99 Mechanical Ventilator 30 08/08/17 09:00 88 26 103/53 98 Mechanical Ventilator 30 08/08/17 08:52 94 32 50 08/08/17 08:30 96 29 115/58 98 Mechanical Ventilator 30 08/08/17 08:00 50 08/08/17 08:00 91 27 113/55 98 Mechanical Ventilator 30 08/08/17 08:00 91 08/08/17 07:20 93 32 50 08/08/17 07:00 99.6 81 24 114/58 97 Mechanical Ventilator 30 99.6 08/08/17 06:00 115/56 08/08/17 06:00 90 18 115/56 97 Mechanical Ventilator 30 08/08/17 05:30 84 23 138/72 97 Mechanical Ventilator 30 08/08/17 05:29 84 28 50 08/08/17 05:00 83 30 118/66 98 Mechanical Ventilator 30 08/08/17 05:00 118/66 08/08/17 04:30 76 23 116/64 97 Mechanical Ventilator 30 08/08/17 04:00 99.0 78 19 105/67 96 Mechanical Ventilator 30 99.0 08/08/17 04:00 105/67 08/08/17 04:00 78 08/08/17 03:30 80 18 98/57 96 Mechanical Ventilator 30 08/08/17 03:17 80 25 50 08/08/17 03:00 74 25 144/85 97 Mechanical Ventilator 30 08/08/17 03:00 134/75 5/14/18 02:30 72 16 134/75 96 Mechanical Ventilator 30 08/08/17 02:00 62 16 143/82 95 Mechanical Ventilator 30 08/08/17 02:00 179/82 08/08/17 01:45 62 16 159/106 95 Mechanical Ventilator 30 08/08/17 01:41 67/16 08/08/17 01:30 82 16 122/33 94 Mechanical Ventilator 30 08/08/17 01:15 85 16 62/22 97 Mechanical Ventilator 30 08/08/17 01:00 90 19 84/36 95 Mechanical Ventilator 30 08/08/17 00:58 126 28 100 08/08/17 00:19 100 08/08/17 00:00 96 08/08/17 00:00 98.7 122 25 128/76 100 Mechanical Ventilator 30 98.7 08/07/17 23:34 129 35 100 08/07/17 22:46 110 30 98 Full Face 30 08/07/17 20:46 102 34 99 Full Face 30 08/07/17 20:13 120 08/07/17 20:00 98.7 126 32 109/68 88 Bi-pap 30 98.7 126 08/07/17 18:55 106 32 100 Full Face 30 08/07/17 16:59 104 30 100 Full Face 30 08/07/17 16:35 Bi-pap 14.0 30 08/07/17 16:00 97.3 109 34 102/43 97 Bi-pap 30 97.3 109 08/07/17 16:00 108 08/07/17 14:38 108 34 95 Full Face 30 08/07/17 13:58 106 24 99 28 08/07/17 12:47 103 34 99 Full Face 30 08/07/17 12:45 Bi-pap 14.0 30 08/07/17 12:02 100.1 101 39 133/72 96 Bi-pap 30 100.1 101 08/07/17 12:00 103 08/07/17 10:42 105 42 94 Full Face 30 Intake and Output 08/07/17 08/08/17 19:00 07:00 Intake Total 550 ml 427.50 ml Output Total 3350 ml Balance -2800 ml 427.50 ml Free Water 50 ml IV Total 510 ml 97.50 ml Tube Feeding 40 ml 280 ml Hemodialysis UF 3350 ml # Voids 300 # Bowel Movements 1 Objective WDWN on vent NAD reduced breath sounds bilaterally without rhonchi or wheeze [id number] without MRG NABS nontender no HSM no CC edema nonfocal Laboratory Tests 08/07/17 10:35: White Blood Count 18.0H, Red Blood Count 3.96L, Hemoglobin 8.7L, Hematocrit 27.5L, Mean Corpuscular Volume 70L, Mean Corpuscular Hemoglobin 21.9L, Mean Corpuscular Hemoglobin Concent 31.5L, Red Cell Distribution Width 18.1H, Platelet Count 305, Mean Platelet Volume 6.0L, Neutrophils (%) (Auto) , Lymphocytes (%) (Auto) , Monocytes (%) (Auto) , Eosinophils (%) (Auto) , Basophils (%) (Auto) , Differential Total Cells Counted 100, Neutrophils % ( Manual) 92H, Lymphocytes % (Manual) 6L, Monocytes % (Manual) 1, Eosinophils % ( Manual) 0, Basophils % (Manual) 0, Band Neutrophils 1, Platelet Estimate Adequate, Platelet Morphology Normal, Hypochromasia 1+, Anisocytosis 1+, Microcytosis 1+, Pro-B-Type Natriuretic Peptide [id number] 08/08/17 00:14: Arterial Blood pH 7.338L, Arterial Blood Partial Pressure CO2 52.9H, Arterial Blood Partial Pressure O2 300.1H, Arterial Blood HCO3 27.8H, Arterial Blood Oxygen Saturation 98.9H, Arterial Blood Base Excess 1.5, Ravi Test Positive 08/08/17 05:30: White Blood Count 24.5*H, Red Blood Count 3.38L, Hemoglobin 7.5L, Hematocrit 23.7L, Mean Corpuscular Volume 70L, Mean Corpuscular Hemoglobin 22.1L, Mean Corpuscular Hemoglobin Concent 31.6L, Red Cell Distribution Width 18.6H, Platelet Count 281, Mean Platelet Volume 5.8L, Neutrophils (%) (Auto) , Lymphocytes (%) (Auto) , Monocytes (%) (Auto) , Eosinophils (%) (Auto) , Basophils (%) (Auto) , Differential Total Cells Counted 100, Neutrophils % ( Manual) 89H, Lymphocytes % (Manual) 7L, Monocytes % (Manual) 4, Eosinophils % ( Manual) 0, Basophils % (Manual) 0, Band Neutrophils 0, Platelet Estimate Adequate, Platelet Morphology Normal, Hypochromasia 3+, Anisocytosis 2+, Microcytosis 3+, Sodium Level 143, Potassium Level 3.7, Chloride Level 107, Carbon Dioxide Level 29, Anion Gap 7, Blood Urea Nitrogen 52H, Creatinine 5.1H, Estimat Glomerular Filtration Rate 9.1, Glucose Level 178H, Calcium Level 8.1L Current Medications Medications (Trade) Dose Ordered Sig/Tommy Route PRN Reason Start Time Stop Time Status Last Admin Dose Admin Acetaminophen (Tylenol) 650 mg EVERY 6 HOURS PRN RECTAL Prn pain/Temp > 100.5 08/08/17 06:00 09/05/17 19:57 Chlorhexidine Gluconate ([place]alia-Hex 2%) 1 applic DAILY@1999 TOPIC 08/08/17 20:00 09/05/17 19:59 Clotrimazole (Lotrimin) 1 applic NEEDED TOPIC 08/08/17 05:30 09/07/17 05:29 Dextrose (Dextrose 50%) 25 ml STAT PRN IV Hypoglycemia 08/08/17 20:00 09/05/17 19:57 Dextrose (Dextrose 50%) 50 ml STAT PRN IV Hypoglycemia 08/08/17 20:00 09/05/17 19:57 Heparin Sodium (Porcine) (Heparin 5000 units/ml) 5,000 units Q8H SUBQ 08/08/17 07:00 09/05/17 14:59 08/08/17 06:38 Insulin Aspart (NovoLOG) 6 units NOVOTIAC SUBQ 08/08/17 06:30 09/02/17 16:49 08/08/17 06:34 Insulin Aspart (NovoLOG) Resistance sliding sc... BEFORE MEALS AND HS SUBQ 08/08/17 06:30 09/02/17 16:29 08/08/17 06:34 Insulin Detemir (Levemir) 20 units Q12HR SUBQ 08/08/17 09:00 09/06/17 08:59 08/08/17 09:28 Linezolid 300 ml @ 300 mls/hr Q12HR IVPB 08/08/17 09:00 08/09/17 23:59 08/08/17 08:18 Lorazepam (Ativan 2mg/ml 1ml) 2 mg Q4H PRN IV For Anxiety 08/08/17 01:00 08/12/17 20:59 Meropenem 500 mg/ Sodium Chloride 110 ml @ 220 mls/hr Q12HR IVPB 08/08/17 09:00 08/10/17 23:59 08/08/17 08:18 Norepinephrine Bitartrate 4 mg/ Dextrose 250 ml @ 0 mls/hr Q24H IV 08/08/17 01:30 09/07/17 01:29 08/08/17 01:41 Pantoprazole (Protonix) 40 mg DAILY IVP 08/08/17 09:00 09/06/17 08:59 08/08/17 08:17 Silver Sulfadiazine (Silvadene Cream 25gm) 1 applic DAILY TOPIC 08/08/17 09:00 08/31/17 10:29 08/08/17 09:00 Stew Hopson MD August 08, 2017 10:33
[2017-08-08] MEDS ORDERED: Heparin 2000 units/Ns 1000ml IV SCH (10:45)
[2017-08-08] MEDS ORDERED: Lidocaine 1% Plain 30 ml INJ SCH (10:45)
--- NOTE | 2017-08-08 12:33 | Pre-Procedure Note/Attestation ---
Pre-Procedure Note/Attestation Complete Prior to Procedure Planned Procedure: not applicable Procedure Narrative: PICC line Indications for Procedure Pre-Operative Diagnosis: need for central venous access Attestation Consent obtained from family by the ICU team. this was confirmed prior to procedure. I attest that I re-evaluated the patient just prior to the surgery and that there has been no change in the patient's H&P, except as documented below: Oj Arellano M.D. August 08, 2017 12:33
--- NOTE | 2017-08-08 12:34 | Operative Note - PDOC ---
Operative Note Operative Note Date of Operation/Procedure: August 08, 2017 Pre-op Diagnosis: need for central venous access Post-op Diagnosis: same as pre-op Surgeon: emely Anesthesia: local, moderate sedation Specimen: none Complications: none Condition: stable Estimated Blood Loss: minimal Drains: none Implant(s) used?: Yes Indications for Procedure need IV access Description of Procedure PICC placed under US at bedside via left basilic vein. CXR after placment showed malpositioning of the PICC, with Tip going up left IJ vein . PICC will be removed and another PICC will be placed. Oj Arellano M.D. August 08, 2017 12:34
--- NOTE | 2017-08-08 12:44 | Diagnostic Imaging Report ---
Indications: Needs long-term IV access Technique: Procedure performed at bedside. Procedural timeout performed. Ultrasound confirms patent compressible left basilic vein. Total sterile technique, including sterile probe cover and sterile gel, sterile gloves, hand hygiene, hat, mask,, sterile gown, large sterile drape, and preparation with 2% chlorhexidine utilized. Local anesthesia with 1% lidocaine. Under real-time ultrasound guidance, puncture the basilic vein using 21-gauge needle, passage 0.018 guidewire, exchange for 5 Guatemalan peel-away sheath. 5 [place] dual-lumen power PICC cut to 42 cm. It was inserted through the peel-away sheath. Peel-away sheath and guidewire removed. Catheter fixed to the skin. Both catheter ports aspirated and flushed. Patient tolerated procedure well, without immediate complication. Followup chest x-ray obtained, documents catheter tip malpositioned in the internal jugular vein. The PICC were removed. Impression: Successful bedside placement of PICC under sonographic guidance however follow-up chest x-ray demonstrates malpositioning of the catheter tip in the left internal jugular vein. The PICC will be removed and a new PICC be placed.
--- NOTE | 2017-08-08 12:46 | Diagnostic Imaging Report ---
Indication: Dyspnea Technique: XRAY Chest 1v Comparison: 08/08/2018, 05:05 Findings: The tracheal and enteric tubes unchanged in position. Stable cardiomegaly. Increasing right-sided pleural fluid and airspace opacities. No definite pneumothorax. Osseous structure stable IMPRESSION: Increasing layering right pleural fluid and right-sided airspace opacities. Support lines/tubes unchanged.
--- NOTE | 2017-08-08 12:48 | Diagnostic Imaging Report ---
Indication: Status post intubation Technique: XRAY Chest 1v Comparison: 08/06/2017, 22:41 FINDINGS/IMPRESSION: Interval endotracheal intubation. Tip of the ET tube terminates approximately 2.1 cm above the waqar. Enteric tube traverses below level of diaphragms and tip outside the field of view.There is mildly improved aeration of the right lower lung. No pneumothorax or additional significant interval change compared to the prior exam. This corresponds with the [facility] preliminary report.
--- NOTE | 2017-08-08 13:45 | Infectious Diseases Prog Note ---
Assessment/Plan Problems: (1) Cellulitis of abdominal wall Assessment & Plan: complicated with panniculitis, startes to improve since her lymphedema in the abdominal skin and fluids retention are improving with HD , mildly tender mainly in the left lower abdomen , continue aggressive HD to improve her lymphedema and cellulitis , will continue meropenem and zyvox empiric coverage for now , surgery has been following , repeated blood culture is negative so far (2) UTI (urinary tract infection) Assessment & Plan: culture grew strep agalactiae and staph aureus , she is already on meropenem and zyvox (3) Septic shock Assessment & Plan: due to the above , back on pressor today , blood culture was negative , today with worsening leukocytosis , will need to pull out the right femoral central line , since it could be the source , and repeat blood culture , continue meropenem and zyvox , monitor WBC (4) Respiratory failure requiring intubation Assessment & Plan: with fluids over load and pleural effusion, now intubated on mechanical ventilation, continue HD to remove more fluids as tolerated , monitor CXR and ABG (5) SCARLET (acute kidney injury) Assessment & Plan: with no significant improvement , required HD , due to the above, has mild improvement in her urine output, nephrology is following, monitor UOP (6) DKA (diabetic ketoacidoses) Assessment & Plan: due to poorly controlled diabetes and sepsis, S/P insulin drip in the ICU , continue close monitor of her blood glucose to keep between 80 -120 (7) Leg wound, left Assessment & Plan: with infection due to staph aureus and klebsiella oxytoca, already on meropenem and zyvox , continue local wound care as per hospital protocol , bone scan to rule out underlying osteomyelitis is pending Subjective Constitutional: Reports: fatigue HEENT: Reports: no symptoms Respiratory: Reports: no symptoms Breasts: Reports: no symptoms Cardiovascular: Reports: no symptoms Gastrointestinal/Abdominal: Reports: other - left lower abdominal wall redness and tenderness with mild skin break Genitourinary: Reports: no symptoms Neurologic: Reports: weakness Psychiatric: Reports: no symptoms Skin: Reports: ulcer, other - left latral ankle wound Endocrine: Reports: no symptoms Hematologic: Reports: no symptoms Musculoskeletal: Reports: no symptoms Allergies: Coded Allergies: PENICILLINS (Verified Allergy, Unknown, 07/30/17) According to mother, the patient is allergic to Penicillins Subjective she was on facial BIPAP , awake and responsive . denied any pain , spiked fever today again with worsening lymphedema in her lower abdomen skin and redness . less on the inner thighs, left groin lymphadenopathy , small skin breaks with blisters drying out at the folds site . right femoral line is not withdrawing blood Objective Vital Signs Last 24 Hour Vital Signs Date Time Temp Pulse Resp B/P (MAP) Pulse Ox O2 Delivery O2 Flow Rate FiO2 08/08/17 13:11 93 30 50 08/08/17 12:00 98.8 92 24 121/68 99 Mechanical Ventilator 30 98.8 08/08/17 12:00 50 08/08/17 12:00 92 08/08/17 11:23 92 34 50 08/08/17 11:00 93 27 106/57 99 Mechanical Ventilator 30 08/08/17 10:00 89 24 105/45 99 Mechanical Ventilator 30 08/08/17 09:30 88 26 93/52 99 Mechanical Ventilator 30 08/08/17 09:00 88 26 103/53 98 Mechanical Ventilator 30 08/08/17 08:52 94 32 50 08/08/17 08:30 96 29 115/58 98 Mechanical Ventilator 30 08/08/17 08:00 50 08/08/17 08:00 91 27 113/55 98 Mechanical Ventilator 30 08/08/17 08:00 91 08/08/17 07:20 93 32 50 08/08/17 07:00 99.6 81 24 114/58 97 Mechanical Ventilator 30 99.6 08/08/17 06:00 115/56 08/08/17 06:00 90 18 115/56 97 Mechanical Ventilator 30 08/08/17 05:30 84 23 138/72 97 Mechanical Ventilator 30 08/08/17 05:29 84 28 50 08/08/17 05:00 83 30 118/66 98 Mechanical Ventilator 30 08/08/17 05:00 118/66 08/08/17 04:30 76 23 116/64 97 Mechanical Ventilator 30 08/08/17 04:00 99.0 78 19 105/67 96 Mechanical Ventilator 30 99.0 08/08/17 04:00 105/67 08/08/17 04:00 78 08/08/17 03:30 80 18 98/57 96 Mechanical Ventilator 30 08/08/17 03:17 80 25 50 08/08/17 03:00 74 25 144/85 97 Mechanical Ventilator 30 08/08/17 03:00 134/75 08/08/17 02:30 72 16 134/75 96 Mechanical Ventilator 30 08/08/17 02:00 62 16 143/82 95 Mechanical Ventilator 30 08/08/17 02:00 179/82 08/08/17 01:45 62 16 159/106 95 Mechanical Ventilator 30 08/08/17 01:41 67/16 08/08/17 01:30 82 16 122/33 94 Mechanical Ventilator 30 08/08/17 01:15 85 16 62/22 97 Mechanical Ventilator 30 08/08/17 01:00 90 19 84/36 95 Mechanical Ventilator 30 08/08/17 00:58 126 28 100 08/08/17 00:19 100 08/08/17 00:00 96 08/08/17 00:00 98.7 122 25 128/76 100 Mechanical Ventilator 30 98.7 08/07/17 23:34 129 35 100 08/07/17 22:46 110 30 98 Full Face 30 08/07/17 20:46 102 34 99 Full Face 30 08/07/17 20:13 120 08/07/17 20:00 98.7 126 32 109/68 88 Bi-pap 30 98.7 126 08/07/17 18:55 106 32 100 Full Face 30 08/07/17 16:59 104 30 100 Full Face 30 08/07/17 16:35 Bi-pap 14.0 30 08/07/17 16:00 97.3 109 34 102/43 97 Bi-pap 30 97.3 109 08/07/17 16:00 108 08/07/17 14:38 108 34 95 Full Face 30 08/07/17 13:58 106 24 99 28 Height (Feet): 5 Height (Inches): 5.00 Weight (Pounds): 330 General Appearance: WD/WN, no acute distress HEENT: normocephalic, atraumatic, anicteric, mucous membranes moist, supple, no JVD Respiratory/Chest: chest wall non-tender, no respiratory distress, no accessory muscle use, decreased breath sounds, crackles/rales Cardiovascular: normal peripheral pulses, normal rate, regular rhythm, no gallop/murmur, no JVD Abdomen: normal bowel sounds, no organomegaly, non distended, no mass, no scars , hypoactive bowel sounds, distended, other - left lower skin redness with mild tenderness Extremities: no cyanosis, no clubbing Skin: no rash, no lesions, no ulcers Neurologic/Psychiatric: alert, responsive, other - intubated on mechnical ventilation Lymphatic: no neck adenopathy, no groin adenopathy Laboratory Tests Test 08/08/17 00:14 08/08/17 05:30 08/08/17 11:00 Arterial Blood pH 7.338 (7.350-7.450) Arterial Blood Partial Pressure CO2 52.9 mmHg (35.0-45.0) H Arterial Blood Partial Pressure O2 300.1 mmHg (75.0-100.0) H Arterial Blood HCO3 27.8 mmol/L (22.0-26.0) H Arterial Blood Oxygen Saturation 98.9 % (92.0-98.0) H Arterial Blood Base Excess 1.5 Ravi Test Positive White Blood Count 24.5 K/UL (4.8-10.8) *H Red Blood Count 3.38 M/UL (4.20-5.40) L Hemoglobin 7.5 G/DL (12.0-16.0) L Hematocrit 23.7 % (37.0-47.0) L Mean Corpuscular Volume 70 FL (80-99) L Mean Corpuscular Hemoglobin 22.1 PG (27.0-31.0) L Mean Corpuscular Hemoglobin Concent 31.6 G/DL (32.0-36.0) L Red Cell Distribution Width 18.6 % (11.6-14.8) H Platelet Count 281 K/UL (150-450) Mean Platelet Volume 5.8 FL (6.5-10.1) L Neutrophils (%) (Auto) % (45.0-75.0) Lymphocytes (%) (Auto) % (20.0-45.0) Monocytes (%) (Auto) % (1.0-10.0) Eosinophils (%) (Auto) % (0.0-3.0) Basophils (%) (Auto) % (0.0-2.0) Differential Total Cells Counted 100 Neutrophils % (Manual) 89 % (45-75) H Lymphocytes % (Manual) 7 % (20-45) L Monocytes % (Manual) 4 % (1-10) Eosinophils % (Manual) 0 % (0-3) Basophils % (Manual) 0 % (0-2) Band Neutrophils 0 % (0-8) Platelet Estimate Adequate Platelet Morphology Normal Hypochromasia 3+ Anisocytosis 2+ Microcytosis 3+ Sodium Level 143 MMOL/L (136-145) Potassium Level 3.7 MMOL/L (3.5-5.1) Chloride Level 107 MMOL/L (98-107) Carbon Dioxide Level 29 MMOL/L (21-32) Anion Gap 7 mmol/L (5-15) Blood Urea Nitrogen 52 mg/dL (7-18) H Creatinine 5.1 MG/DL (0.55-1.30) H Estimat Glomerular Filtration Rate 9.1 mL/min (>60) Glucose Level 178 MG/DL (74-106) H Calcium Level 8.1 MG/DL (8.5-10.1) L Ionized Calcium (Measured) Pending Current Medications Medications (Trade) Dose Ordered Sig/Tommy Route PRN Reason Start Time Stop Time Status Last Admin Dose Admin Acetaminophen (Tylenol) 650 mg EVERY 6 HOURS PRN RECTAL Prn pain/Temp > 100.5 08/08/17 06:00 09/05/17 19:57 Chlorhexidine Gluconate (Idalia-Hex 2%) 1 applic DAILY TOPIC 08/09/17 09:00 09/08/17 08:59 Chlorhexidine Gluconate (Idalia-Hex 2%) 1 applic DAILY@1999 TOPIC 08/08/17 20:00 09/05/17 19:59 Clotrimazole (Lotrimin) 1 applic NEEDED TOPIC 08/08/17 05:30 09/07/17 05:29 Dextrose (Dextrose 50%) 25 ml STAT PRN IV Hypoglycemia 08/08/17 20:00 09/05/17 19:57 Dextrose (Dextrose 50%) 50 ml STAT PRN IV Hypoglycemia 08/08/17 20:00 09/05/17 19:57 Heparin Sodium (Porcine) (Heparin 5000 units/ml) 5,000 units Q8H SUBQ 08/08/17 07:00 09/05/17 14:59 08/08/17 06:38 Heparin Sodium/ Sodium Chloride (Heparin 2000 units/Ns 1000ml premix) 2,000 unit ONCE IV 08/08/17 10:45 08/08/17 23:59 Insulin Aspart (NovoLOG) 6 units NOVOTIAC SUBQ 08/08/17 06:30 09/02/17 16:49 08/08/17 12:43 Insulin Aspart (NovoLOG) Resistance sliding sc... BEFORE MEALS AND HS SUBQ 08/08/17 06:30 09/02/17 16:29 08/08/17 12:42 Insulin Detemir (Levemir) 20 units Q12HR SUBQ 08/08/17 09:00 09/06/17 08:59 08/08/17 09:28 Lidocaine HCl (Xylocaine 1% 30ml) 30 ml ONCE INJ 08/08/17 10:45 08/08/17 23:59 Linezolid 300 ml @ 300 mls/hr Q12HR IVPB 08/08/17 09:00 08/09/17 23:59 08/08/17 08:18 Lorazepam (Ativan 2mg/ml 1ml) 2 mg Q4H PRN IV For Anxiety 08/08/17 01:00 08/12/17 20:59 Meropenem 500 mg/ Sodium Chloride 110 ml @ 220 mls/hr Q12HR IVPB 08/08/17 09:00 08/10/17 23:59 08/08/17 08:18 Norepinephrine Bitartrate 4 mg/ Dextrose 250 ml @ 0 mls/hr Q24H IV 08/08/17 01:30 09/07/17 01:29 08/08/17 01:41 Pantoprazole (Protonix) 40 mg DAILY IVP 08/08/17 09:00 09/06/17 08:59 08/08/17 08:17 Silver Sulfadiazine (Silvadene Cream 25gm) 1 applic DAILY TOPIC 08/08/17 09:00 08/31/17 10:29 08/08/17 09:00 Johanny Colbert M.D. August 08, 2017 13:45
--- NOTE | 2017-08-08 14:33 | General Surgery Progress Note ---
General Surgery-Progress Note Objective Last 24 Hour Vital Signs Date Time Temp Pulse Resp B/P (MAP) Pulse Ox O2 Delivery O2 Flow Rate FiO2 08/08/17 14:00 94 22 102/61 97 Mechanical Ventilator 30 08/08/17 13:30 92 22 103/56 98 Mechanical Ventilator 30 08/08/17 13:11 93 30 50 08/08/17 13:00 93 28 105/55 96 Mechanical Ventilator 30 08/08/17 12:30 93 28 118/68 99 Mechanical Ventilator 30 08/08/17 12:00 98.8 92 24 121/68 99 Mechanical Ventilator 30 98.8 08/08/17 12:00 50 08/08/17 12:00 92 08/08/17 11:23 92 34 50 08/08/17 11:00 93 27 106/57 99 Mechanical Ventilator 30 08/08/17 10:00 89 24 105/45 99 Mechanical Ventilator 30 08/08/17 09:30 88 26 93/52 99 Mechanical Ventilator 30 08/08/17 09:00 88 26 103/53 98 Mechanical Ventilator 30 08/08/17 08:52 94 32 50 08/08/17 08:30 96 29 115/58 98 Mechanical Ventilator 30 08/08/17 08:00 50 08/08/17 08:00 91 27 113/55 98 Mechanical Ventilator 30 08/08/17 08:00 91 08/08/17 07:20 93 32 50 08/08/17 07:00 99.6 81 24 114/58 97 Mechanical Ventilator 30 99.6 08/08/17 06:00 115/56 08/08/17 06:00 90 18 115/56 97 Mechanical Ventilator 30 08/08/17 05:30 84 23 138/72 97 Mechanical Ventilator 30 08/08/17 05:29 84 28 50 08/08/17 05:00 83 30 118/66 98 Mechanical Ventilator 30 08/08/17 05:00 118/66 08/08/17 04:30 76 23 116/64 97 Mechanical Ventilator 30 08/08/17 04:00 99.0 78 19 105/67 96 Mechanical Ventilator 30 99.0 08/08/17 04:00 105/67 08/08/17 04:00 78 08/08/17 03:30 80 18 98/57 96 Mechanical Ventilator 30 08/08/17 03:17 80 25 50 08/08/17 03:00 74 25 144/85 97 Mechanical Ventilator 30 08/08/17 03:00 134/75 08/08/17 02:30 72 16 134/75 96 Mechanical Ventilator 30 08/08/17 02:00 62 16 143/82 95 Mechanical Ventilator 30 08/08/17 02:00 179/82 08/08/17 01:45 62 16 159/106 95 Mechanical Ventilator 30 08/08/17 01:41 67/16 08/08/17 01:30 82 16 122/33 94 Mechanical Ventilator 30 08/08/17 01:15 85 16 62/22 97 Mechanical Ventilator 30 08/08/17 01:00 90 19 84/36 95 Mechanical Ventilator 30 08/08/17 00:58 126 28 100 08/08/17 00:19 100 08/08/17 00:00 96 08/08/17 00:00 98.7 122 25 128/76 100 Mechanical Ventilator 30 98.7 08/07/17 23:34 129 35 100 08/07/17 22:46 110 30 98 Full Face 30 08/07/17 20:46 102 34 99 Full Face 30 08/07/17 20:13 120 08/07/17 20:00 98.7 126 32 109/68 88 Bi-pap 30 98.7 126 08/07/17 18:55 106 32 100 Full Face 30 08/07/17 16:59 104 30 100 Full Face 30 08/07/17 16:35 Bi-pap 14.0 30 08/07/17 16:00 97.3 109 34 102/43 97 Bi-pap 30 97.3 109 08/07/17 16:00 108 08/07/17 14:38 108 34 95 Full Face 30 I&O Intake and Output 08/07/17 08/08/17 19:00 07:00 Intake Total 550 ml 427.50 ml Output Total 3350 ml Balance -2800 ml 427.50 ml Free Water 50 ml IV Total 510 ml 97.50 ml Tube Feeding 40 ml 280 ml Hemodialysis UF 3350 ml # Voids 300 # Bowel Movements 1 Respiratory: clear Abdomen: soft, flat, other - erythema has reduced localized more on lateral side Laboratory Tests Test 08/08/17 00:14 08/08/17 05:30 08/08/17 11:00 Arterial Blood pH 7.338 (7.350-7.450) Arterial Blood Partial Pressure CO2 52.9 mmHg (35.0-45.0) H Arterial Blood Partial Pressure O2 300.1 mmHg (75.0-100.0) H Arterial Blood HCO3 27.8 mmol/L (22.0-26.0) H Arterial Blood Oxygen Saturation 98.9 % (92.0-98.0) H Arterial Blood Base Excess 1.5 Ravi Test Positive White Blood Count 24.5 K/UL (4.8-10.8) *H Red Blood Count 3.38 M/UL (4.20-5.40) L Hemoglobin 7.5 G/DL (12.0-16.0) L Hematocrit 23.7 % (37.0-47.0) L Mean Corpuscular Volume 70 FL (80-99) L Mean Corpuscular Hemoglobin 22.1 PG (27.0-31.0) L Mean Corpuscular Hemoglobin Concent 31.6 G/DL (32.0-36.0) L Red Cell Distribution Width 18.6 % (11.6-14.8) H Platelet Count 281 K/UL (150-450) Mean Platelet Volume 5.8 FL (6.5-10.1) L Neutrophils (%) (Auto) % (45.0-75.0) Lymphocytes (%) (Auto) % (20.0-45.0) Monocytes (%) (Auto) % (1.0-10.0) Eosinophils (%) (Auto) % (0.0-3.0) Basophils (%) (Auto) % (0.0-2.0) Differential Total Cells Counted 100 Neutrophils % (Manual) 89 % (45-75) H Lymphocytes % (Manual) 7 % (20-45) L Monocytes % (Manual) 4 % (1-10) Eosinophils % (Manual) 0 % (0-3) Basophils % (Manual) 0 % (0-2) Band Neutrophils 0 % (0-8) Platelet Estimate Adequate Platelet Morphology Normal Hypochromasia 3+ Anisocytosis 2+ Microcytosis 3+ Sodium Level 143 MMOL/L (136-145) Potassium Level 3.7 MMOL/L (3.5-5.1) Chloride Level 107 MMOL/L (98-107) Carbon Dioxide Level 29 MMOL/L (21-32) Anion Gap 7 mmol/L (5-15) Blood Urea Nitrogen 52 mg/dL (7-18) H Creatinine 5.1 MG/DL (0.55-1.30) H Estimat Glomerular Filtration Rate 9.1 mL/min (>60) Glucose Level 178 MG/DL (74-106) H Calcium Level 8.1 MG/DL (8.5-10.1) L Ionized Calcium (Measured) 1.08 mmol/L (1.10-1.35) L Assessment Post-op Diagnosis cellulitis of abdominal wall respiratory failure R/O line sepsis Plan Additional Comments change all lines and zak cath Jorge L Longoria MD August 08, 2017 14:33
--- NOTE | 2017-08-08 15:17 | GI Progress Note ---
Assessment/Plan Problems: (1) Anemia ICD Codes: D64.9 - Anemia, unspecified SNOMED: 106292595 (2) Diabetes mellitus ICD Codes: E11.9 - Type 2 diabetes mellitus without complications SNOMED: 95290455 Status: stable Status Narrative Discussed with Dr. Hernandez. Assessment/Plan Assessment - Sepsis, improved - resp failure, resolved - DKA - abd wall cellulitis - obesity - Renal failure - Anemia, OB stool positive Recommendations - continue NGT feeds - check swallow eval - elevated HOB - abx - follow labs and exam - check additional OB - transfuse PRN - fu labs Subjective Subjective limited Objective Last 24 Hour Vital Signs Date Time Temp Pulse Resp B/P (MAP) Pulse Ox O2 Delivery O2 Flow Rate FiO2 08/08/17 14:00 94 22 102/61 97 Mechanical Ventilator 30 08/08/17 13:30 92 22 103/56 98 Mechanical Ventilator 30 08/08/17 13:11 93 30 50 08/08/17 13:00 93 28 105/55 96 Mechanical Ventilator 30 08/08/17 12:30 93 28 118/68 99 Mechanical Ventilator 30 08/08/17 12:00 98.8 92 24 121/68 99 Mechanical Ventilator 30 98.8 08/08/17 12:00 50 08/08/17 12:00 92 08/08/17 11:23 92 34 50 08/08/17 11:00 93 27 106/57 99 Mechanical Ventilator 30 08/08/17 10:00 89 24 105/45 99 Mechanical Ventilator 30 08/08/17 09:30 88 26 93/52 99 Mechanical Ventilator 30 08/08/17 09:00 88 26 103/53 98 Mechanical Ventilator 30 08/08/17 08:52 94 32 50 08/08/17 08:30 96 29 115/58 98 Mechanical Ventilator 30 08/08/17 08:00 50 08/08/17 08:00 91 27 113/55 98 Mechanical Ventilator 30 08/08/17 08:00 91 08/08/17 07:20 93 32 50 08/08/17 07:00 99.6 81 24 114/58 97 Mechanical Ventilator 30 99.6 08/08/17 06:00 115/56 08/08/17 06:00 90 18 115/56 97 Mechanical Ventilator 30 08/08/17 05:30 84 23 138/72 97 Mechanical Ventilator 30 08/08/17 05:29 84 28 50 08/08/17 05:00 83 30 118/66 98 Mechanical Ventilator 30 08/08/17 05:00 118/66 08/08/17 04:30 76 23 116/64 97 Mechanical Ventilator 30 08/08/17 04:00 99.0 78 19 105/67 96 Mechanical Ventilator 30 99.0 08/08/17 04:00 105/67 08/08/17 04:00 78 08/08/17 03:30 80 18 98/57 96 Mechanical Ventilator 30 08/08/17 03:17 80 25 50 08/08/17 03:00 74 25 144/85 97 Mechanical Ventilator 30 08/08/17 03:00 134/75 08/08/17 02:30 72 16 134/75 96 Mechanical Ventilator 30 08/08/17 02:00 62 16 143/82 95 Mechanical Ventilator 30 08/08/17 02:00 179/82 08/08/17 01:45 62 16 159/106 95 Mechanical Ventilator 30 08/08/17 01:41 67/16 08/08/17 01:30 82 16 122/33 94 Mechanical Ventilator 30 08/08/17 01:15 85 16 62/22 97 Mechanical Ventilator 30 08/08/17 01:00 90 19 84/36 95 Mechanical Ventilator 30 08/08/17 00:58 126 28 100 08/08/17 00:19 100 08/08/17 00:00 96 08/08/17 00:00 98.7 122 25 128/76 100 Mechanical Ventilator 30 98.7 08/07/17 23:34 129 35 100 08/07/17 22:46 110 30 98 Full Face 30 08/07/17 20:46 102 34 99 Full Face 30 08/07/17 20:13 120 08/07/17 20:00 98.7 126 32 109/68 88 Bi-pap 30 98.7 126 08/07/17 18:55 106 32 100 Full Face 30 08/07/17 16:59 104 30 100 Full Face 30 08/07/17 16:35 Bi-pap 14.0 30 08/07/17 16:00 97.3 109 34 102/43 97 Bi-pap 30 97.3 109 08/07/17 16:00 108 Intake and Output 08/07/17 08/08/17 19:00 07:00 Intake Total 550 ml 427.50 ml Output Total 3350 ml Balance -2800 ml 427.50 ml Free Water 50 ml IV Total 510 ml 97.50 ml Tube Feeding 40 ml 280 ml Hemodialysis UF 3350 ml # Voids 300 # Bowel Movements 1 Laboratory Tests Test 08/08/17 00:14 08/08/17 05:30 08/08/17 11:00 Arterial Blood pH 7.338 (7.350-7.450) Arterial Blood Partial Pressure CO2 52.9 mmHg (35.0-45.0) H Arterial Blood Partial Pressure O2 300.1 mmHg (75.0-100.0) H Arterial Blood HCO3 27.8 mmol/L (22.0-26.0) H Arterial Blood Oxygen Saturation 98.9 % (92.0-98.0) H Arterial Blood Base Excess 1.5 Ravi Test Positive White Blood Count 24.5 K/UL (4.8-10.8) *H Red Blood Count 3.38 M/UL (4.20-5.40) L Hemoglobin 7.5 G/DL (12.0-16.0) L Hematocrit 23.7 % (37.0-47.0) L Mean Corpuscular Volume 70 FL (80-99) L Mean Corpuscular Hemoglobin 22.1 PG (27.0-31.0) L Mean Corpuscular Hemoglobin Concent 31.6 G/DL (32.0-36.0) L Red Cell Distribution Width 18.6 % (11.6-14.8) H Platelet Count 281 K/UL (150-450) Mean Platelet Volume 5.8 FL (6.5-10.1) L Neutrophils (%) (Auto) % (45.0-75.0) Lymphocytes (%) (Auto) % (20.0-45.0) Monocytes (%) (Auto) % (1.0-10.0) Eosinophils (%) (Auto) % (0.0-3.0) Basophils (%) (Auto) % (0.0-2.0) Differential Total Cells Counted 100 Neutrophils % (Manual) 89 % (45-75) H Lymphocytes % (Manual) 7 % (20-45) L Monocytes % (Manual) 4 % (1-10) Eosinophils % (Manual) 0 % (0-3) Basophils % (Manual) 0 % (0-2) Band Neutrophils 0 % (0-8) Platelet Estimate Adequate Platelet Morphology Normal Hypochromasia 3+ Anisocytosis 2+ Microcytosis 3+ Sodium Level 143 MMOL/L (136-145) Potassium Level 3.7 MMOL/L (3.5-5.1) Chloride Level 107 MMOL/L (98-107) Carbon Dioxide Level 29 MMOL/L (21-32) Anion Gap 7 mmol/L (5-15) Blood Urea Nitrogen 52 mg/dL (7-18) H Creatinine 5.1 MG/DL (0.55-1.30) H Estimat Glomerular Filtration Rate 9.1 mL/min (>60) Glucose Level 178 MG/DL (74-106) H Calcium Level 8.1 MG/DL (8.5-10.1) L Ionized Calcium (Measured) 1.08 mmol/L (1.10-1.35) L Height (Feet): 5 Height (Inches): 5.00 Weight (Pounds): 330 General Appearance: WD/WN, no apparent distress, alert Cardiovascular: normal rate Respiratory/Chest: normal breath sounds, no respiratory distress, other - mech vent Abdominal Exam: normal bowel sounds, non tender, soft, other - NGT Extremities: non-tender Ham Gonzalez NP August 08, 2017 15:17
--- NOTE | 2017-08-08 15:44 | Cardiac Electrophysiology PN ---
Assessment/Plan Assessment/Plan 1. S/P Septic shock due to diabetic ketoacidosis. On broad-spectrum IV antibiotic. Off pressors Echocardiogram showed EF 60%. Rule out for CT 2. Diabetic ketoacidosis, on IV fluids and insulin. 3. S/P Cardiac arrest needing atropine. Due to respiratory failure. Now in SR 4. White count of 36,000, abdominal cellulitis, likely because of the patient's DKA. IV antibiotic per Dr. Colbert. WBC increased to 24 k=K. 5. Morbid obesity. 6. Respiratory failure. re intubated. 7. ARF on HD now 8. Anemia hb 6.9. Transfused 9. Severe hyponatremia, sodium 118, likely due to diabetic ketoacidosis. Resolved now 140s DW RN Subjective Subjective In ICU alert and off pressors. Had HD via LFV Manjinder catheter yesterday but coded due to respiratory failure and intubated and hypotensive and was on Levophed. Niow off Levophed. Objective Last 24 Hour Vital Signs Date Time Temp Pulse Resp B/P (MAP) Pulse Ox O2 Delivery O2 Flow Rate FiO2 08/08/17 15:00 93 22 114/70 98 Mechanical Ventilator 30 08/08/17 14:00 94 22 102/61 97 Mechanical Ventilator 30 08/08/17 13:30 92 22 103/56 98 Mechanical Ventilator 30 08/08/17 13:11 93 30 50 08/08/17 13:00 93 28 105/55 96 Mechanical Ventilator 30 08/08/17 12:30 93 28 118/68 99 Mechanical Ventilator 30 08/08/17 12:00 98.8 92 24 121/68 99 Mechanical Ventilator 30 98.8 08/08/17 12:00 50 08/08/17 12:00 92 08/08/17 11:23 92 34 50 08/08/17 11:00 93 27 106/57 99 Mechanical Ventilator 30 08/08/17 10:00 89 24 105/45 99 Mechanical Ventilator 30 08/08/17 09:30 88 26 93/52 99 Mechanical Ventilator 30 08/08/17 09:00 88 26 103/53 98 Mechanical Ventilator 30 08/08/17 08:52 94 32 50 08/08/17 08:30 96 29 115/58 98 Mechanical Ventilator 30 08/08/17 08:00 50 08/08/17 08:00 91 27 113/55 98 Mechanical Ventilator 30 08/08/17 08:00 91 08/08/17 07:20 93 32 50 08/08/17 07:00 99.6 81 24 114/58 97 Mechanical Ventilator 30 99.6 08/08/17 06:00 115/56 08/08/17 06:00 90 18 115/56 97 Mechanical Ventilator 30 08/08/17 05:30 84 23 138/72 97 Mechanical Ventilator 30 08/08/17 05:29 84 28 50 08/08/17 05:00 83 30 118/66 98 Mechanical Ventilator 30 08/08/17 05:00 118/66 08/08/17 04:30 76 23 116/64 97 Mechanical Ventilator 30 08/08/17 04:00 99.0 78 19 105/67 96 Mechanical Ventilator 30 99.0 08/08/17 04:00 105/67 08/08/17 04:00 78 08/08/17 03:30 80 18 98/57 96 Mechanical Ventilator 30 08/08/17 03:17 80 25 50 08/08/17 03:00 74 25 144/85 97 Mechanical Ventilator 30 08/08/17 03:00 134/75 08/08/17 02:30 72 16 134/75 96 Mechanical Ventilator 30 08/08/17 02:00 62 16 143/82 95 Mechanical Ventilator 30 08/08/17 02:00 179/82 08/08/17 01:45 62 16 159/106 95 Mechanical Ventilator 30 08/08/17 01:41 67/16 08/08/17 01:30 82 16 122/33 94 Mechanical Ventilator 30 08/08/17 01:15 85 16 62/22 97 Mechanical Ventilator 30 08/08/17 01:00 90 19 84/36 95 Mechanical Ventilator 30 08/08/17 00:58 126 28 100 08/08/17 00:19 100 08/08/17 00:00 96 08/08/17 00:00 98.7 122 25 128/76 100 Mechanical Ventilator 30 98.7 08/07/17 23:34 129 35 100 08/07/17 22:46 110 30 98 Full Face 30 08/07/17 20:46 102 34 99 Full Face 30 08/07/17 20:13 120 08/07/17 20:00 98.7 126 32 109/68 88 Bi-pap 30 98.7 126 08/07/17 18:55 106 32 100 Full Face 30 08/07/17 16:59 104 30 100 Full Face 30 08/07/17 16:35 Bi-pap 14.0 30 08/07/17 16:00 97.3 109 34 102/43 97 Bi-pap 30 97.3 109 08/07/17 16:00 108 Intake and Output 08/07/17 08/08/17 19:00 07:00 Intake Total 550 ml 427.50 ml Output Total 3350 ml Balance -2800 ml 427.50 ml Free Water 50 ml IV Total 510 ml 97.50 ml Tube Feeding 40 ml 280 ml Hemodialysis UF 3350 ml # Voids 300 # Bowel Movements 1 Laboratory Tests Test 08/08/17 00:14 08/08/17 05:30 08/08/17 11:00 Arterial Blood pH 7.338 (7.350-7.450) Arterial Blood Partial Pressure CO2 52.9 mmHg (35.0-45.0) H Arterial Blood Partial Pressure O2 300.1 mmHg (75.0-100.0) H Arterial Blood HCO3 27.8 mmol/L (22.0-26.0) H Arterial Blood Oxygen Saturation 98.9 % (92.0-98.0) H Arterial Blood Base Excess 1.5 Ravi Test Positive White Blood Count 24.5 K/UL (4.8-10.8) *H Red Blood Count 3.38 M/UL (4.20-5.40) L Hemoglobin 7.5 G/DL (12.0-16.0) L Hematocrit 23.7 % (37.0-47.0) L Mean Corpuscular Volume 70 FL (80-99) L Mean Corpuscular Hemoglobin 22.1 PG (27.0-31.0) L Mean Corpuscular Hemoglobin Concent 31.6 G/DL (32.0-36.0) L Red Cell Distribution Width 18.6 % (11.6-14.8) H Platelet Count 281 K/UL (150-450) Mean Platelet Volume 5.8 FL (6.5-10.1) L Neutrophils (%) (Auto) % (45.0-75.0) Lymphocytes (%) (Auto) % (20.0-45.0) Monocytes (%) (Auto) % (1.0-10.0) Eosinophils (%) (Auto) % (0.0-3.0) Basophils (%) (Auto) % (0.0-2.0) Differential Total Cells Counted 100 Neutrophils % (Manual) 89 % (45-75) H Lymphocytes % (Manual) 7 % (20-45) L Monocytes % (Manual) 4 % (1-10) Eosinophils % (Manual) 0 % (0-3) Basophils % (Manual) 0 % (0-2) Band Neutrophils 0 % (0-8) Platelet Estimate Adequate Platelet Morphology Normal Hypochromasia 3+ Anisocytosis 2+ Microcytosis 3+ Sodium Level 143 MMOL/L (136-145) Potassium Level 3.7 MMOL/L (3.5-5.1) Chloride Level 107 MMOL/L (98-107) Carbon Dioxide Level 29 MMOL/L (21-32) Anion Gap 7 mmol/L (5-15) Blood Urea Nitrogen 52 mg/dL (7-18) H Creatinine 5.1 MG/DL (0.55-1.30) H Estimat Glomerular Filtration Rate 9.1 mL/min (>60) Glucose Level 178 MG/DL (74-106) H Calcium Level 8.1 MG/DL (8.5-10.1) L Ionized Calcium (Measured) 1.08 mmol/L (1.10-1.35) L Objective HEAD AND NECK: No JVD, Intubated LUNGS: Coarse rhonchi. CARDIOVASCULAR: Regular S1 and S2 with no gallop. ABDOMEN: Cellulitis of the lower abdomen and erythema. EXTREMITIES: 1+ pitting edema.Adama Tracey MD August 08, 2017 15:44
[2017-08-08] MEDS ORDERED: Dyna-Hex 2% Top Sol 2oz TOPIC SCH ×2 (20:00)
[2017-08-08] MEDS: Acetaminophen 650mg/20.3ml NG PRN (21:25)
[2017-08-09] VITALS (24 sets, daily range): BP systolic 97–141; BP diastolic 42–88
[2017-08-09 06:08] LABS: HEMATOCRIT 21.9 % (37.0-47.0); MEAN CORPUSCULAR VOLUME 70 FL (80-99); PLATELET COUNT 296 K/UL (150-450); RED BLOOD COUNT 3.13 M/UL (4.20-5.40); RED CELL DISTRIBUTION WIDTH 18.4 % (11.6-14.8); WHITE BLOOD COUNT 14.7 K/UL (4.8-10.8)
[2017-08-09] MEDS: NovoLOG Insulin Flexpen SUBQ SCH ×5 (06:16→20:35)
[2017-08-09] MEDS: Heparin 5000 units/ml inj SUBQ SCH ×3 (06:18→23:21)
[2017-08-09 06:24] LABS: ANION GAP 10 mmol/L (5-15); BLOOD UREA NITROGEN 58 mg/dL (7-18); CARBON DIOXIDE 26 MMOL/L (21-32); CHLORIDE 107 MMOL/L (98-107); CREATININE 5.6 MG/DL (0.55-1.30); POTASSIUM 3.3 MMOL/L (3.5-5.1); SODIUM 143 MMOL/L (136-145)
[2017-08-09 06:31] LABS: HEMOGLOBIN 6.8 G/DL (12.0-16.0)
[2017-08-09] MEDS: Acetaminophen 650mg/20.3ml NG PRN (07:10)
[2017-08-09 07:15] LABS: PHOSPHORUS 4.6 MG/DL (2.5-4.9)
--- NOTE | 2017-08-09 07:21 | General Progress Note ---
Assessment/Plan Problem List: (1) Cellulitis of abdominal wall ICD Codes: L03.311 - Cellulitis of abdominal wall SNOMED: 75200510 (2) Acute respiratory failure ICD Codes: J96.00 - Acute respiratory failure, unspecified whether with hypoxia or hypercapnia SNOMED: 15252504 (3) New onset type 1 diabetes mellitus, uncontrolled ICD Codes: E10.65 - Type 1 diabetes mellitus with hyperglycemia SNOMED: 953918420 (4) Necrotizing fasciitis ICD Codes: M72.6 - Necrotizing fasciitis SNOMED: 85231625 (5) DKA (diabetic ketoacidoses) ICD Codes: E13.10 - Other specified diabetes mellitus with ketoacidosis without coma SNOMED: 20155891, 999572843 Assessment/Plan continue Levemir 20 units bid DC Novolog 6 units ac continue NISS Subjective ROS Limited/Unobtainable: Yes Allergies: Coded Allergies: PENICILLINS (Verified Allergy, Unknown, 07/30/17) According to mother, the patient is allergic to Penicillins Subjective events noted - reintubated and transferred to ICU Objective Last 24 Hour Vital Signs Date Time Temp Pulse Resp B/P (MAP) Pulse Ox O2 Delivery O2 Flow Rate FiO2 08/09/17 07:10 100.0 08/09/17 07:00 78 23 101/61 100 Mechanical Ventilator 50 08/09/17 06:00 86 21 112/84 100 Mechanical Ventilator 50 08/09/17 05:23 92 29 50 08/09/17 05:03 50 08/09/17 05:00 89 19 105/58 99 Mechanical Ventilator 50 08/09/17 04:00 99.3 95 21 110/83 99 Mechanical Ventilator 50 99.3 08/09/17 04:00 91 08/09/17 03:00 90 25 107/70 99 Mechanical Ventilator 50 08/09/17 02:47 94 30 50 08/09/17 02:00 94 19 125/72 99 Mechanical Ventilator 50 08/09/17 01:30 118/68 08/09/17 01:18 85 22 50 08/09/17 01:00 85 24 118/68 99 Mechanical Ventilator 70 08/09/17 00:00 70 08/09/17 00:00 95 08/09/17 00:00 99.5 92 21 124/88 98 Mechanical Ventilator 70 99.5 08/08/17 23:00 99 24 124/75 98 Mechanical Ventilator 50 08/08/17 22:51 98 28 50 08/08/17 22:00 101 28 120/72 96 Mechanical Ventilator 50 08/08/17 21:55 99.8 08/08/17 21:48 101 27 50 18 21:25 100.1 08/08/17 21:00 99.8 99 19 125/75 96 Mechanical Ventilator 30 99.8 08/08/17 20:00 50 08/08/17 20:00 99 08/08/17 20:00 100.1 90 22 121/66 96 Mechanical Ventilator 30 100.1 08/08/17 19:08 92 25 50 08/08/17 19:00 97 22 118/74 96 Mechanical Ventilator 30 08/08/17 18:24 Mechanical Ventilator 50 08/08/17 18:07 99.6 28 107/65 Mechanical Ventilator 50 99.6 08/08/17 17:05 93 20 50 08/08/17 17:00 93 22 113/67 96 Mechanical Ventilator 30 08/08/17 16:30 99.0 93 28 113/61 Mechanical Ventilator 50 99.0 08/08/17 16:30 Mechanical Ventilator 50 08/08/17 16:00 50 08/08/17 16:00 94 08/08/17 16:00 98.0 93 24 117/65 99 Mechanical Ventilator 30 98.0 08/08/17 15:26 105 35 50 08/08/17 15:00 93 22 114/70 98 Mechanical Ventilator 30 08/08/17 14:00 94 22 102/61 97 Mechanical Ventilator 30 08/08/17 13:30 92 22 103/56 98 Mechanical Ventilator 30 08/08/17 13:11 93 30 50 08/08/17 13:00 93 28 105/55 96 Mechanical Ventilator 30 08/08/17 12:30 93 28 118/68 99 Mechanical Ventilator 30 08/08/17 12:00 98.8 92 24 121/68 99 Mechanical Ventilator 30 98.8 08/08/17 12:00 50 08/08/17 12:00 92 08/08/17 11:23 92 34 50 08/08/17 11:00 93 27 106/57 99 Mechanical Ventilator 30 08/08/17 10:00 89 24 105/45 99 Mechanical Ventilator 30 08/08/17 09:30 88 26 93/52 99 Mechanical Ventilator 30 08/08/17 09:00 88 26 103/53 98 Mechanical Ventilator 30 08/08/17 08:52 94 32 50 08/08/17 08:30 96 29 115/58 98 Mechanical Ventilator 30 08/08/17 08:00 50 08/08/17 08:00 91 27 113/55 98 Mechanical Ventilator 30 08/08/17 08:00 91 08/08/17 07:20 93 32 50 Intake and Output 08/08/17 08/09/17 19:00 07:00 Intake Total 890 ml 890 ml Output Total 668 ml 295 ml Balance 222 ml 595 ml IV Total 410 ml 410 ml Tube Feeding 480 ml 480 ml Output Urine Total 455 ml 295 ml Hemodialysis UF 213 ml # Voids 192 # Bowel Movements 1 Laboratory Tests 08/08/17 11:00: Ionized Calcium (Measured) 1.08L 08/09/17 05:00: White Blood Count 14.7H, Red Blood Count 3.13L, Hemoglobin 6.8*L, Hematocrit 21.9L, Mean Corpuscular Volume 70L, Mean Corpuscular Hemoglobin 21.6L, Mean Corpuscular Hemoglobin Concent 30.9L, Red Cell Distribution Width 18.4H, Platelet Count 296, Mean Platelet Volume 5.9L, Neutrophils (%) (Auto) , Lymphocytes (%) (Auto) , Monocytes (%) (Auto) , Eosinophils (%) (Auto) , Basophils (%) (Auto) , Neutrophils % (Manual) [Pending], Lymphocytes % (Manual) [Pending], Platelet Estimate [Pending], Platelet Morphology [Pending], Stool Occult Blood [Pending], Sodium Level 143, Potassium Level 3.3L, Chloride Level 107, Carbon Dioxide Level 26, Anion Gap 10, Blood Urea Nitrogen 58H, Creatinine 5.6H, Estimat Glomerular Filtration Rate 8.1, Glucose Level 146H, Calcium Level 8.0L, Phosphorus Level 4.6, Magnesium Level 2.2 Height (Feet): 5 Height (Inches): 5.00 Weight (Pounds): 325 General Appearance: moderate distress Neck: normal alignment Cardiovascular: tachycardia Respiratory/Chest: decreased breath sounds Abdomen: normal bowel sounds Edema: 1+ Arm (L), 1+ Arm (R), 1+ Leg (L), 1+ Leg (R), 1+ Pedal (L), 1+ Pedal ( R), 1+ Generalized Objective Current Medications Medications (Trade) Dose Ordered Sig/Tommy Route PRN Reason Start Time Stop Time Status Last Admin Dose Admin Acetaminophen (Tylenol) 650 mg EVERY 6 HOURS PRN RECTAL Prn pain/Temp > 100.5 08/08/17 06:00 09/05/17 19:57 Acetaminophen (Tylenol) 650 mg Q4H PRN NG Mild Pain/Temp > 100.5 08/08/17 21:00 09/07/17 20:59 08/09/17 07:10 Chlorhexidine Gluconate (Idalia-Hex 2%) 1 applic DAILY TOPIC 08/09/17 09:00 09/08/17 08:59 Chlorhexidine Gluconate (Idalia-Hex 2%) 1 applic DAILY@1999 TOPIC 08/08/17 20:00 09/05/17 19:59 08/08/17 20:00 Clotrimazole (Lotrimin) 1 applic NEEDED TOPIC 08/08/17 05:30 09/07/17 05:29 Dextrose (Dextrose 50%) 25 ml STAT PRN IV Hypoglycemia 08/08/17 20:00 09/05/17 19:57 Dextrose (Dextrose 50%) 50 ml STAT PRN IV Hypoglycemia 08/08/17 20:00 09/05/17 19:57 Heparin Sodium (Porcine) (Heparin 5000 units/ml) 5,000 units Q8H SUBQ 08/08/17 07:00 09/05/17 14:59 08/09/17 06:18 Insulin Aspart (NovoLOG) 6 units NOVOTIAC SUBQ 08/08/17 06:30 09/02/17 16:49 08/09/17 06:17 Insulin Aspart (NovoLOG) Resistance sliding sc... BEFORE MEALS AND HS SUBQ 08/08/17 06:30 09/02/17 16:29 08/09/17 06:16 Insulin Detemir (Levemir) 20 units Q12HR SUBQ 08/08/17 09:00 09/06/17 08:59 08/08/17 21:26 Linezolid 300 ml @ 300 mls/hr Q12HR IVPB 08/08/17 09:00 08/09/17 23:59 5/14/18 21:01 Lorazepam (Ativan 2mg/ml 1ml) 2 mg Q4H PRN IV For Anxiety 08/08/17 01:00 08/12/17 20:59 08/08/17 23:30 Meropenem 500 mg/ Sodium Chloride 110 ml @ 220 mls/hr Q12HR IVPB 08/08/17 09:00 08/10/17 23:59 08/08/17 21:00 Norepinephrine Bitartrate 4 mg/ Dextrose 250 ml @ 0 mls/hr Q24H IV 08/08/17 01:30 09/07/17 01:29 08/08/17 01:41 Pantoprazole (Protonix) 40 mg DAILY IVP 08/08/17 09:00 09/06/17 08:59 08/08/17 08:17 Silver Sulfadiazine (Silvadene Cream 25gm) 1 applic DAILY TOPIC 08/08/17 09:00 08/31/17 10:29 08/08/17 09:00 Item Value Date Time Bedside Blood Glucose 166 mg/dl H 08/09/17 0646 Bedside Blood Glucose 110 mg/dl 08/08/17 2126 Bedside Blood Glucose 75 mg/dl 08/08/17 1630 Bedside Blood Glucose 148 mg/dl H 08/08/17 1243 Bedside Blood Glucose 151 mg/dl H 08/08/17 0928 Bedside Blood Glucose 189 mg/dl H 08/08/17 0634 SAQIB TOM August 09, 2017 07:21
--- NOTE | 2017-08-09 07:45 | Nephrology Progress Note ---
Assessment/Plan Assessment/Plan 1. SCARLET- ATN non resolving. HD today for volume control. New quitnon pending in IJ - multifact ATN (sepsis induced inflammotory cytokine prox tub damage/ ishchemic ATN hypotension/vol dep) - HD today for volume control and close monitoring of hemodynamic status during the procedure 2. DKA/Met Acidosis - resolved 3. Septic Shock- etiology likely from abd cellulitis. Abx mgmt per ID. - Gen Surg mgmt of abdomen paniculitis. - needs UF to assist with Abx penetration due to anasarca 4. Hypotension- resolved now off pressors 5. Resp FL- re-intubated, per pulm 6. Hypok+/Ca/Phos- replace prn 7. Anemia- 2 Unit PRBC and mgmt per GI Subjective Date patient seen: August 09, 2017 Time patient seen: 07:43 ROS Limited/Unobtainable: Yes Allergies: Coded Allergies: PENICILLINS (Verified Allergy, Unknown, 07/30/17) According to mother, the patient is allergic to Penicillins Subjective Patient intubated on mechanical ventilation Objective Last 24 Hour Vital Signs Date Time Temp Pulse Resp B/P (MAP) Pulse Ox O2 Delivery O2 Flow Rate FiO2 08/09/17 07:25 96 26 50 08/09/17 07:10 100.0 08/09/17 07:00 78 23 101/61 100 Mechanical Ventilator 50 08/09/17 06:00 86 21 112/84 100 Mechanical Ventilator 50 08/09/17 05:23 92 29 50 08/09/17 05:03 50 08/09/17 05:00 89 19 105/58 99 Mechanical Ventilator 50 08/09/17 04:00 99.3 95 21 110/83 99 Mechanical Ventilator 50 99.3 08/09/17 04:00 91 08/09/17 03:00 90 25 107/70 99 Mechanical Ventilator 50 08/09/17 02:47 94 30 50 08/09/17 02:00 94 19 125/72 99 Mechanical Ventilator 50 08/09/17 01:30 118/68 08/09/17 01:18 85 22 50 08/09/17 01:00 85 24 118/68 99 Mechanical Ventilator 70 08/09/17 00:00 70 08/09/17 00:00 95 08/09/17 00:00 99.5 92 21 124/88 98 Mechanical Ventilator 70 99.5 5/14/18 23:00 99 24 124/75 98 Mechanical Ventilator 50 08/08/17 22:51 98 28 50 08/08/17 22:00 101 28 120/72 96 Mechanical Ventilator 50 08/08/17 21:55 99.8 08/08/17 21:48 101 27 50 08/08/17 21:25 100.1 08/08/17 21:00 99.8 99 19 125/75 96 Mechanical Ventilator 30 99.8 08/08/17 20:00 50 08/08/17 20:00 99 08/08/17 20:00 100.1 90 22 121/66 96 Mechanical Ventilator 30 100.1 08/08/17 19:08 92 25 50 08/08/17 19:00 97 22 118/74 96 Mechanical Ventilator 30 08/08/17 18:24 Mechanical Ventilator 50 08/08/17 18:07 99.6 28 107/65 Mechanical Ventilator 50 99.6 08/08/17 17:05 93 20 50 08/08/17 17:00 93 22 113/67 96 Mechanical Ventilator 30 08/08/17 16:30 99.0 93 28 113/61 Mechanical Ventilator 50 99.0 08/08/17 16:30 Mechanical Ventilator 50 08/08/17 16:00 50 08/08/17 16:00 94 08/08/17 16:00 98.0 93 24 117/65 99 Mechanical Ventilator 30 98.0 08/08/17 15:26 105 35 50 08/08/17 15:00 93 22 114/70 98 Mechanical Ventilator 30 08/08/17 14:00 94 22 102/61 97 Mechanical Ventilator 30 08/08/17 13:30 92 22 103/56 98 Mechanical Ventilator 30 08/08/17 13:11 93 30 50 08/08/17 13:00 93 28 105/55 96 Mechanical Ventilator 30 08/08/17 12:30 93 28 118/68 99 Mechanical Ventilator 30 08/08/17 12:00 98.8 92 24 121/68 99 Mechanical Ventilator 30 98.8 08/08/17 12:00 50 08/08/17 12:00 92 08/08/17 11:23 92 34 50 08/08/17 11:00 93 27 106/57 99 Mechanical Ventilator 30 08/08/17 10:00 89 24 105/45 99 Mechanical Ventilator 30 08/08/17 09:30 88 26 93/52 99 Mechanical Ventilator 30 08/08/17 09:00 88 26 103/53 98 Mechanical Ventilator 30 08/08/17 08:52 94 32 50 08/08/17 08:30 96 29 115/58 98 Mechanical Ventilator 30 08/08/17 08:00 50 08/08/17 08:00 91 27 113/55 98 Mechanical Ventilator 30 08/08/17 08:00 91 Intake and Output 08/08/17 08/09/17 19:00 07:00 Intake Total 890 ml 890 ml Output Total 668 ml 295 ml Balance 222 ml 595 ml IV Total 410 ml 410 ml Tube Feeding 480 ml 480 ml Output Urine Total 455 ml 295 ml Hemodialysis UF 213 ml # Voids 192 # Bowel Movements 1 Laboratory Tests 08/08/17 11:00: Ionized Calcium (Measured) 1.08L 08/09/17 05:00: White Blood Count 14.7H, Red Blood Count 3.13L, Hemoglobin 6.8*L, Hematocrit 21.9L, Mean Corpuscular Volume 70L, Mean Corpuscular Hemoglobin 21.6L, Mean Corpuscular Hemoglobin Concent 30.9L, Red Cell Distribution Width 18.4H, Platelet Count 296, Mean Platelet Volume 5.9L, Neutrophils (%) (Auto) , Lymphocytes (%) (Auto) , Monocytes (%) (Auto) , Eosinophils (%) (Auto) , Basophils (%) (Auto) , Neutrophils % (Manual) [Pending], Lymphocytes % (Manual) [Pending], Platelet Estimate [Pending], Platelet Morphology [Pending], Stool Occult Blood [Pending], Sodium Level 143, Potassium Level 3.3L, Chloride Level 107, Carbon Dioxide Level 26, Anion Gap 10, Blood Urea Nitrogen 58H, Creatinine 5.6H, Estimat Glomerular Filtration Rate 8.1, Glucose Level 146H, Calcium Level 8.0L, Phosphorus Level 4.6, Magnesium Level 2.2 Height (Feet): 5 Height (Inches): 5.00 Weight (Pounds): 325 General Appearance: WD/WN, no apparent distress EENT: PERRL/EOMI, normal ENT inspection Neck: non-tender, normal alignment Cardiovascular: normal peripheral pulses, normal rate, regular rhythm Respiratory/Chest: chest wall non-tender, lungs clear Abdomen: normal bowel sounds, non tender Edema: 2+ Arm (L), 2+ Arm (R), 2+ Leg (L), 2+ Leg (R), 2+ Pedal (L), 2+ Pedal ( R), 2+ Generalized Carlton Guzmán M.D. August 09, 2017 07:45
[2017-08-09] MEDS ORDERED: Calcium Gluconate 1gm/10ml vial IVP ONE (08:00)
--- NOTE | 2017-08-09 08:35 | Pulmonology Progress Note ---
Assessment/Plan Assessment/Plan respiratory failure s/p extubation and now with reintubation DKA sepsis abd wall cellulitis fluid overload effusions and edema anemia PLAN vent support hold wean with anemia on heparin ?dc check venous US- not available HD per renal monitor for change and recommend from pulm standpoint ICU care patient critical Subjective Allergies: Coded Allergies: PENICILLINS (Verified Allergy, Unknown, 07/30/17) According to mother, the patient is allergic to Penicillins Subjective on vent worsening anemia Objective Last 24 Hour Vital Signs Date Time Temp Pulse Resp B/P (MAP) Pulse Ox O2 Delivery O2 Flow Rate FiO2 08/09/17 07:25 96 26 50 08/09/17 07:10 100.0 08/09/17 07:00 78 23 101/61 100 Mechanical Ventilator 50 08/09/17 06:00 86 21 112/84 100 Mechanical Ventilator 50 08/09/17 05:23 92 29 50 08/09/17 05:03 50 08/09/17 05:00 89 19 105/58 99 Mechanical Ventilator 50 08/09/17 04:00 99.3 95 21 110/83 99 Mechanical Ventilator 50 99.3 08/09/17 04:00 91 08/09/17 03:00 90 25 107/70 99 Mechanical Ventilator 50 08/09/17 02:47 94 30 50 08/09/17 02:00 94 19 125/72 99 Mechanical Ventilator 50 08/09/17 01:30 118/68 08/09/17 01:18 85 22 50 08/09/17 01:00 85 24 118/68 99 Mechanical Ventilator 70 08/09/17 00:00 70 08/09/17 00:00 95 08/09/17 00:00 99.5 92 21 124/88 98 Mechanical Ventilator 70 99.5 08/08/17 23:00 99 24 124/75 98 Mechanical Ventilator 50 08/08/17 22:51 98 28 50 08/08/17 22:00 101 28 120/72 96 Mechanical Ventilator 50 08/08/17 21:55 99.8 08/08/17 21:48 101 27 50 08/08/17 21:25 100.1 08/08/17 21:00 99.8 99 19 125/75 96 Mechanical Ventilator 30 99.8 08/08/17 20:00 50 08/08/17 20:00 99 08/08/17 20:00 100.1 90 22 121/66 96 Mechanical Ventilator 30 100.1 08/08/17 19:08 92 25 50 08/08/17 19:00 97 22 118/74 96 Mechanical Ventilator 30 08/08/17 18:24 Mechanical Ventilator 50 08/08/17 18:07 99.6 28 107/65 Mechanical Ventilator 50 99.6 08/08/17 17:05 93 20 50 08/08/17 17:00 93 22 113/67 96 Mechanical Ventilator 30 08/08/17 16:30 99.0 93 28 113/61 Mechanical Ventilator 50 99.0 08/08/17 16:30 Mechanical Ventilator 50 08/08/17 16:00 50 08/08/17 16:00 94 08/08/17 16:00 98.0 93 24 117/65 99 Mechanical Ventilator 30 98.0 08/08/17 15:26 105 35 50 08/08/17 15:00 93 22 114/70 98 Mechanical Ventilator 30 08/08/17 14:00 94 22 102/61 97 Mechanical Ventilator 30 08/08/17 13:30 92 22 103/56 98 Mechanical Ventilator 30 08/08/17 13:11 93 30 50 08/08/17 13:00 93 28 105/55 96 Mechanical Ventilator 30 08/08/17 12:30 93 28 118/68 99 Mechanical Ventilator 30 08/08/17 12:00 98.8 92 24 121/68 99 Mechanical Ventilator 30 98.8 08/08/17 12:00 50 08/08/17 12:00 92 08/08/17 11:23 92 34 50 08/08/17 11:00 93 27 106/57 99 Mechanical Ventilator 30 08/08/17 10:00 89 24 105/45 99 Mechanical Ventilator 30 08/08/17 09:30 88 26 93/52 99 Mechanical Ventilator 30 08/08/17 09:00 88 26 103/53 98 Mechanical Ventilator 30 08/08/17 08:52 94 32 50 Intake and Output 08/08/17 08/09/17 19:00 07:00 Intake Total 890 ml 890 ml Output Total 668 ml 295 ml Balance 222 ml 595 ml IV Total 410 ml 410 ml Tube Feeding 480 ml 480 ml Output Urine Total 455 ml 295 ml Hemodialysis UF 213 ml # Voids 192 # Bowel Movements 1 Objective WDWN on vent NAD reduced breath sounds bilaterally without rhonchi or wheeze [id number] without MRG NABS nontender no HSM no CC edema nonfocal Laboratory Tests 08/08/17 11:00: Ionized Calcium (Measured) 1.08L 08/09/17 05:00: White Blood Count 14.7H, Red Blood Count 3.13L, Hemoglobin 6.8*L, Hematocrit 21.9L, Mean Corpuscular Volume 70L, Mean Corpuscular Hemoglobin 21.6L, Mean Corpuscular Hemoglobin Concent 30.9L, Red Cell Distribution Width 18.4H, Platelet Count 296, Mean Platelet Volume 5.9L, Neutrophils (%) (Auto) , Lymphocytes (%) (Auto) , Monocytes (%) (Auto) , Eosinophils (%) (Auto) , Basophils (%) (Auto) , Neutrophils % (Manual) [Pending], Lymphocytes % (Manual) [Pending], Platelet Estimate [Pending], Platelet Morphology [Pending], Stool Occult Blood [Pending], Sodium Level 143, Potassium Level 3.3L, Chloride Level 107, Carbon Dioxide Level 26, Anion Gap 10, Blood Urea Nitrogen 58H, Creatinine 5.6H, Estimat Glomerular Filtration Rate 8.1, Glucose Level 146H, Calcium Level 8.0L, Phosphorus Level 4.6, Magnesium Level 2.2 Current Medications Medications (Trade) Dose Ordered Sig/Tommy Route PRN Reason Start Time Stop Time Status Last Admin Dose Admin Acetaminophen (Tylenol) 650 mg EVERY 6 HOURS PRN RECTAL Prn pain/Temp > 100.5 08/08/17 06:00 09/05/17 19:57 Acetaminophen (Tylenol) 650 mg Q4H PRN NG Mild Pain/Temp > 100.5 08/08/17 21:00 09/07/17 20:59 08/09/17 07:10 Calcium Gluconate (Calcium Gluconate 10%) 1 gm ONCE ONCE IVP 08/09/17 08:00 08/09/17 08:01 UNV Chlorhexidine Gluconate (Idalia-Hex 2%) 1 applic DAILY TOPIC 08/09/17 09:00 09/08/17 08:59 Chlorhexidine Gluconate (Idalia-Hex 2%) 1 applic DAILY@1999 TOPIC 08/08/17 20:00 09/05/17 19:59 08/08/17 20:00 Clotrimazole (Lotrimin) 1 applic NEEDED TOPIC 08/08/17 05:30 09/07/17 05:29 Dextrose (Dextrose 50%) 25 ml STAT PRN IV Hypoglycemia 08/08/17 20:00 09/05/17 19:57 Dextrose (Dextrose 50%) 50 ml STAT PRN IV Hypoglycemia 08/08/17 20:00 09/05/17 19:57 Heparin Sodium (Porcine) (Heparin 5000 units/ml) 5,000 units Q8H SUBQ 08/08/17 07:00 09/05/17 14:59 08/09/17 06:18 Insulin Aspart (NovoLOG) Resistance sliding sc... BEFORE MEALS AND HS SUBQ 08/08/17 06:30 09/02/17 16:29 08/09/17 06:16 Insulin Detemir (Levemir) 20 units Q12HR SUBQ 08/08/17 09:00 09/06/17 08:59 08/08/17 21:26 Linezolid 300 ml @ 300 mls/hr Q12HR IVPB 08/08/17 09:00 08/09/17 23:59 08/08/17 21:01 Lorazepam (Ativan 2mg/ml 1ml) 2 mg Q4H PRN IV For Anxiety 08/08/17 01:00 08/12/17 20:59 08/08/17 23:30 Meropenem 500 mg/ Sodium Chloride 110 ml @ 220 mls/hr Q12HR IVPB 08/08/17 09:00 08/10/17 23:59 08/08/17 21:00 Norepinephrine Bitartrate 4 mg/ Dextrose 250 ml @ 0 mls/hr Q24H IV 08/08/17 01:30 09/07/17 01:29 08/08/17 01:41 Pantoprazole (Protonix) 40 mg DAILY IVP 08/08/17 09:00 09/06/17 08:59 08/08/17 08:17 Potassium Chloride 100 ml @ 50 mls/hr ONCE ONCE IVPB 08/09/17 08:00 08/09/17 09:59 UNV Silver Sulfadiazine (Silvadene Cream 25gm) 1 applic DAILY TOPIC 08/08/17 09:00 08/31/17 10:29 08/08/17 09:00 Stew Hopson MD August 09, 2017 08:35
[2017-08-09] MEDS ORDERED: Dyna-Hex 2% Top Sol 2oz TOPIC SCH (09:00)
[2017-08-09] MEDS ORDERED: Calcium Gluconate 10% 1 GM in D5W 110 ML IVPB SCH (09:30)
[2017-08-09] MEDS: Pantoprazole Inj IVP SCH ×2 (09:40→18:00)
[2017-08-09] MEDS: Meropenem 500 MG in NS 110 ML IVPB SCH ×2 (09:40→20:34)
[2017-08-09] MEDS: Levemir Flexpen SUBQ SCH ×2 (09:54→20:36)
--- NOTE | 2017-08-09 13:46 | Diagnostic Imaging Report ---
Indication: Post nasogastric tube placement Technique: One view of the chest Comparison: 07/31/2017 Findings: Stable satisfactory position of endotracheal tube. There is a nasogastric tube now present, tip difficult to visualize due to patient body habitus. Probably in the region of the gastric antrum. The lungs demonstrate equivocal mild interstitial congestive change Impression: Satisfactory nasogastric intubation Other stable findings as described
--- NOTE | 2017-08-09 13:47 | Infectious Diseases Prog Note ---
Assessment/Plan Problems: (1) Cellulitis of abdominal wall Assessment & Plan: complicated with panniculitis, starts to improve since her lymphedema in the abdominal skin and fluids retention are improving with HD, not tender in the left lower abdomen , continue aggressive HD to improve her lymphedema and cellulitis , will continue meropenem and zyvox empiric coverage for now , surgery has been following , repeated blood culture is negative so far . she has slow recovery due to significant lymphedema and fluids overload (2) UTI (urinary tract infection) Assessment & Plan: culture grew strep agalactiae and staph aureus , she is already on meropenem and zyvox (3) Septic shock Assessment & Plan: due to the above , on pressor on/off as needed , blood culture was negative , has improvement in her leukocytosis, will need to pull out the left femoral HD catheter since it is non functional , await repeated blood culture , continue meropenem and zyvox , monitor WBC (4) Respiratory failure requiring intubation Assessment & Plan: with fluids over load and pleural effusion, now intubated on mechanical ventilation, continue HD to remove more fluids as tolerated , monitor CXR and ABG (5) SCARLET (acute kidney injury) Assessment & Plan: with no significant improvement , required HD , due to the above, has mild improvement in her urine output, nephrology is following, monitor UOP (6) DKA (diabetic ketoacidoses) Assessment & Plan: due to poorly controlled diabetes and sepsis, S/P insulin drip in the ICU , continue close monitor of her blood glucose to keep between 80 -120 (7) Leg wound, left Assessment & Plan: with infection due to staph aureus and klebsiella oxytoca, already on meropenem and zyvox , continue local wound care as per hospital protocol , bone scan to rule out underlying osteomyelitis is pending Subjective Constitutional: Reports: no symptoms HEENT: Reports: no symptoms Respiratory: Reports: no symptoms Breasts: Reports: no symptoms Cardiovascular: Reports: no symptoms Gastrointestinal/Abdominal: Reports: no symptoms Genitourinary: Reports: no symptoms Neurologic: Reports: no symptoms Psychiatric: Reports: no symptoms Skin: Reports: ulcer Endocrine: Reports: no symptoms Hematologic: Reports: no symptoms Musculoskeletal: Reports: no symptoms Allergies: Coded Allergies: PENICILLINS (Verified Allergy, Unknown, 07/30/17) According to mother, the patient is allergic to Penicillins Subjective she was intubated o mechanical ventilation , awake and responsive . denied any pain , had low grade fever today with less lymphedema in her lower abdomen skin and less redness . less on the inner thighs, with mild left groin lymphadenopathy , small skin breaks drying out at the folds site . left femoral HD catheter is clotted Objective Vital Signs Last 24 Hour Vital Signs Date Time Temp Pulse Resp B/P (MAP) Pulse Ox O2 Delivery O2 Flow Rate FiO2 08/09/17 13:26 91 24 50 08/09/17 12:00 50 08/09/17 10:41 91 23 50 08/09/17 08:58 94 26 50 08/09/17 08:00 50 08/09/17 07:45 100.3 08/09/17 07:25 96 26 50 08/09/17 07:10 100.0 08/09/17 07:00 78 23 101/61 100 Mechanical Ventilator 50 08/09/17 06:00 86 21 112/84 100 Mechanical Ventilator 50 08/09/17 05:23 92 29 50 08/09/17 05:03 50 08/09/17 05:00 89 19 105/58 99 Mechanical Ventilator 50 08/09/17 04:00 99.3 95 21 110/83 99 Mechanical Ventilator 50 99.3 08/09/17 04:00 91 08/09/17 03:00 90 25 107/70 99 Mechanical Ventilator 50 08/09/17 02:47 94 30 50 08/09/17 02:00 94 19 125/72 99 Mechanical Ventilator 50 08/09/17 01:30 118/68 08/09/17 01:18 85 22 50 08/09/17 01:00 85 24 118/68 99 Mechanical Ventilator 70 08/09/17 00:00 70 08/09/17 00:00 95 08/09/17 00:00 99.5 92 21 124/88 98 Mechanical Ventilator 70 99.5 08/08/17 23:00 99 24 124/75 98 Mechanical Ventilator 50 08/08/17 22:51 98 28 50 08/08/17 22:00 101 28 120/72 96 Mechanical Ventilator 50 08/08/17 21:48 101 27 50 08/08/17 21:25 100.1 08/08/17 21:00 99.8 99 19 125/75 96 Mechanical Ventilator 30 99.8 08/08/17 20:00 50 08/08/17 20:00 99 08/08/17 20:00 100.1 90 22 121/66 96 Mechanical Ventilator 30 100.1 08/08/17 19:08 92 25 50 08/08/17 19:00 97 22 118/74 96 Mechanical Ventilator 30 08/08/17 18:24 Mechanical Ventilator 50 08/08/17 18:07 99.6 28 107/65 Mechanical Ventilator 50 99.6 08/08/17 17:05 93 20 50 08/08/17 17:00 93 22 113/67 96 Mechanical Ventilator 30 08/08/17 16:30 99.0 93 28 113/61 Mechanical Ventilator 50 99.0 08/08/17 16:30 Mechanical Ventilator 50 08/08/17 16:00 50 08/08/17 16:00 94 08/08/17 16:00 98.0 93 24 117/65 99 Mechanical Ventilator 30 98.0 08/08/17 15:26 105 35 50 08/08/17 15:00 93 22 114/70 98 Mechanical Ventilator 30 08/08/17 14:00 94 22 102/61 97 Mechanical Ventilator 30 Height (Feet): 5 Height (Inches): 5.00 Weight (Pounds): 325 General Appearance: WD/WN, no acute distress HEENT: normocephalic, atraumatic, anicteric, mucous membranes moist, PERRL Respiratory/Chest: chest wall non-tender, no respiratory distress, no accessory muscle use, decreased breath sounds, crackles/rales Cardiovascular: normal peripheral pulses, normal rate, regular rhythm, no gallop/murmur, no JVD Abdomen: normal bowel sounds, soft, non tender, no organomegaly, non distended , no mass, no scars Extremities: no cyanosis, no clubbing Skin: no rash, no lesions, ulcers - on the left leg and the abdominal skin folds , other - edematous with lymphedema Neurologic/Psychiatric: alert, oriented x 3, responsive Lymphatic: no neck adenopathy Musculoskeletal: normal muscle bulk Laboratory Tests Test 08/09/17 05:00 White Blood Count 14.7 K/UL (4.8-10.8) H Red Blood Count 3.13 M/UL (4.20-5.40) L Hemoglobin 6.8 G/DL (12.0-16.0) *L Hematocrit 21.9 % (37.0-47.0) L Mean Corpuscular Volume 70 FL (80-99) L Mean Corpuscular Hemoglobin 21.6 PG (27.0-31.0) L Mean Corpuscular Hemoglobin Concent 30.9 G/DL (32.0-36.0) L Red Cell Distribution Width 18.4 % (11.6-14.8) H Platelet Count 296 K/UL (150-450) Mean Platelet Volume 5.9 FL (6.5-10.1) L Neutrophils (%) (Auto) % (45.0-75.0) Lymphocytes (%) (Auto) % (20.0-45.0) Monocytes (%) (Auto) % (1.0-10.0) Eosinophils (%) (Auto) % (0.0-3.0) Basophils (%) (Auto) % (0.0-2.0) Differential Total Cells Counted 100 Neutrophils % (Manual) 84 % (45-75) H Lymphocytes % (Manual) 10 % (20-45) L Monocytes % (Manual) 4 % (1-10) Eosinophils % (Manual) 2 % (0-3) Basophils % (Manual) 0 % (0-2) Band Neutrophils 0 % (0-8) Platelet Estimate Adequate Platelet Morphology Normal Hypochromasia 1+ Anisocytosis 1+ Microcytosis 1+ Stool Occult Blood Negative (NEGATIVE) Sodium Level 143 MMOL/L (136-145) Potassium Level 3.3 MMOL/L (3.5-5.1) L Chloride Level 107 MMOL/L (98-107) Carbon Dioxide Level 26 MMOL/L (21-32) Anion Gap 10 mmol/L (5-15) Blood Urea Nitrogen 58 mg/dL (7-18) H Creatinine 5.6 MG/DL (0.55-1.30) H Estimat Glomerular Filtration Rate 8.1 mL/min (>60) Glucose Level 146 MG/DL (74-106) H Calcium Level 8.0 MG/DL (8.5-10.1) L Phosphorus Level 4.6 MG/DL (2.5-4.9) Magnesium Level 2.2 MG/DL (1.8-2.4) Current Medications Medications (Trade) Dose Ordered Sig/Tommy Route PRN Reason Start Time Stop Time Status Last Admin Dose Admin Acetaminophen (Tylenol) 650 mg EVERY 6 HOURS PRN RECTAL Prn pain/Temp > 100.5 08/08/17 06:00 09/05/17 19:57 Acetaminophen (Tylenol) 650 mg Q4H PRN NG Mild Pain/Temp > 100.5 08/08/17 21:00 09/07/17 20:59 08/09/17 07:10 Chlorhexidine Gluconate (Idalia-Hex 2%) 1 applic DAILY@2000 TOPIC 08/09/17 20:00 09/08/17 19:59 Clotrimazole (Lotrimin) 1 applic NEEDED TOPIC 08/08/17 05:30 09/07/17 05:29 Dextrose (Dextrose 50%) 25 ml STAT PRN IV Hypoglycemia 08/08/17 20:00 09/05/17 19:57 Dextrose (Dextrose 50%) 50 ml STAT PRN IV Hypoglycemia 08/08/17 20:00 09/05/17 19:57 Heparin Sodium (Porcine) (Heparin 5000 units/ml) 5,000 units Q8H SUBQ 08/08/17 07:00 09/05/17 14:59 08/09/17 06:18 Insulin Aspart (NovoLOG) Resistance sliding sc... BEFORE MEALS AND HS SUBQ 08/08/17 06:30 09/02/17 16:29 08/09/17 13:17 Insulin Detemir (Levemir) 20 units Q12HR SUBQ 08/08/17 09:00 09/06/17 08:59 08/09/17 09:54 Linezolid 300 ml @ 300 mls/hr Q12HR IVPB 08/08/17 09:00 08/09/17 23:59 08/09/17 09:40 Lorazepam (Ativan 2mg/ml 1ml) 2 mg Q4H PRN IV For Anxiety 08/08/17 01:00 08/12/17 20:59 08/08/17 23:30 Meropenem 500 mg/ Sodium Chloride 110 ml @ 220 mls/hr Q12HR IVPB 08/08/17 09:00 08/10/17 23:59 08/09/17 09:40 Norepinephrine Bitartrate 4 mg/ Dextrose 250 ml @ 0 mls/hr Q24H IV 08/08/17 01:30 09/07/17 01:29 08/08/17 01:41 Pantoprazole (Protonix) 40 mg DAILY IVP 08/08/17 09:00 09/06/17 08:59 08/09/17 09:40 Silver Sulfadiazine (Silvadene Cream 25gm) 1 applic DAILY TOPIC 08/08/17 09:00 08/31/17 10:29 08/09/17 09:40 Johanny Colbert M.D. August 09, 2017 13:47
[2017-08-09] MEDS ORDERED: Heparin 2000 units/Ns 1000ml IV PRN (14:15)
[2017-08-09] MEDS ORDERED: Lidocaine 1% Plain 30 ml INJ PRN (14:15)
--- NOTE | 2017-08-09 16:05 | GI Progress Note ---
Assessment/Plan Problems: (1) Anemia ICD Codes: D64.9 - Anemia, unspecified SNOMED: 441032525 (2) Diabetes mellitus ICD Codes: E11.9 - Type 2 diabetes mellitus without complications SNOMED: 31457688 Status: not improved Status Narrative Discussed with Dr. Hernandez. Assessment/Plan Assessment - Sepsis, improved - resp failure, resolved - DKA - abd wall cellulitis - obesity - Renal failure - Anemia >> OB (+)(-) - s/p code, now re-inutbated Recommendations - defer GI procedures, patient not stable - hold feeds, NPO + IVFs - ppi BID - elevated HOB - abx - follow labs and exam - check additional OB - transfuse PRN - fu labs Subjective Subjective limited Objective Last 24 Hour Vital Signs Date Time Temp Pulse Resp B/P (MAP) Pulse Ox O2 Delivery O2 Flow Rate FiO2 08/09/17 14:38 96 25 50 08/09/17 13:26 91 24 50 08/09/17 12:00 50 08/09/17 10:41 91 23 50 08/09/17 08:58 94 26 50 08/09/17 08:00 50 08/09/17 07:45 100.3 08/09/17 07:25 96 26 50 08/09/17 07:10 100.0 08/09/17 07:00 78 23 101/61 100 Mechanical Ventilator 50 08/09/17 06:00 86 21 112/84 100 Mechanical Ventilator 50 08/09/17 05:23 92 29 50 08/09/17 05:03 50 08/09/17 05:00 89 19 105/58 99 Mechanical Ventilator 50 08/09/17 04:00 99.3 95 21 110/83 99 Mechanical Ventilator 50 99.3 08/09/17 04:00 91 08/09/17 03:00 90 25 107/70 99 Mechanical Ventilator 50 08/09/17 02:47 94 30 50 08/09/17 02:00 94 19 125/72 99 Mechanical Ventilator 50 08/09/17 01:30 118/68 08/09/17 01:18 85 22 50 08/09/17 01:00 85 24 118/68 99 Mechanical Ventilator 70 08/09/17 00:00 70 08/09/17 00:00 95 08/09/17 00:00 99.5 92 21 124/88 98 Mechanical Ventilator 70 99.5 08/08/17 23:00 99 24 124/75 98 Mechanical Ventilator 50 08/08/17 22:51 98 28 50 08/08/17 22:00 101 28 120/72 96 Mechanical Ventilator 50 08/08/17 21:48 101 27 50 08/08/17 21:25 100.1 08/08/17 21:00 99.8 99 19 125/75 96 Mechanical Ventilator 30 99.8 08/08/17 20:00 50 08/08/17 20:00 99 08/08/17 20:00 100.1 90 22 121/66 96 Mechanical Ventilator 30 100.1 08/08/17 19:08 92 25 50 08/08/17 19:00 97 22 118/74 96 Mechanical Ventilator 30 08/08/17 18:24 Mechanical Ventilator 50 08/08/17 18:07 99.6 28 107/65 Mechanical Ventilator 50 99.6 08/08/17 17:05 93 20 50 08/08/17 17:00 93 22 113/67 96 Mechanical Ventilator 30 08/08/17 16:30 99.0 93 28 113/61 Mechanical Ventilator 50 99.0 08/08/17 16:30 Mechanical Ventilator 50 Intake and Output 08/08/17 08/09/17 19:00 07:00 Intake Total 890 ml 890 ml Output Total 668 ml 295 ml Balance 222 ml 595 ml IV Total 410 ml 410 ml Tube Feeding 480 ml 480 ml Output Urine Total 455 ml 295 ml Hemodialysis UF 213 ml # Voids 192 # Bowel Movements 1 Laboratory Tests Test 08/09/17 05:00 White Blood Count 14.7 K/UL (4.8-10.8) H Red Blood Count 3.13 M/UL (4.20-5.40) L Hemoglobin 6.8 G/DL (12.0-16.0) *L Hematocrit 21.9 % (37.0-47.0) L Mean Corpuscular Volume 70 FL (80-99) L Mean Corpuscular Hemoglobin 21.6 PG (27.0-31.0) L Mean Corpuscular Hemoglobin Concent 30.9 G/DL (32.0-36.0) L Red Cell Distribution Width 18.4 % (11.6-14.8) H Platelet Count 296 K/UL (150-450) Mean Platelet Volume 5.9 FL (6.5-10.1) L Neutrophils (%) (Auto) % (45.0-75.0) Lymphocytes (%) (Auto) % (20.0-45.0) Monocytes (%) (Auto) % (1.0-10.0) Eosinophils (%) (Auto) % (0.0-3.0) Basophils (%) (Auto) % (0.0-2.0) Differential Total Cells Counted 100 Neutrophils % (Manual) 84 % (45-75) H Lymphocytes % (Manual) 10 % (20-45) L Monocytes % (Manual) 4 % (1-10) Eosinophils % (Manual) 2 % (0-3) Basophils % (Manual) 0 % (0-2) Band Neutrophils 0 % (0-8) Platelet Estimate Adequate Platelet Morphology Normal Hypochromasia 1+ Anisocytosis 1+ Microcytosis 1+ Stool Occult Blood Negative (NEGATIVE) Sodium Level 143 MMOL/L (136-145) Potassium Level 3.3 MMOL/L (3.5-5.1) L Chloride Level 107 MMOL/L (98-107) Carbon Dioxide Level 26 MMOL/L (21-32) Anion Gap 10 mmol/L (5-15) Blood Urea Nitrogen 58 mg/dL (7-18) H Creatinine 5.6 MG/DL (0.55-1.30) H Estimat Glomerular Filtration Rate 8.1 mL/min (>60) Glucose Level 146 MG/DL (74-106) H Calcium Level 8.0 MG/DL (8.5-10.1) L Phosphorus Level 4.6 MG/DL (2.5-4.9) Magnesium Level 2.2 MG/DL (1.8-2.4) Height (Feet): 5 Height (Inches): 5.00 Weight (Pounds): 325 General Appearance: no apparent distress Respiratory/Chest: other - intubed Abdominal Exam: other - TRET Ham Gonzalez NP August 09, 2017 16:05
--- NOTE | 2017-08-09 17:00 | Cardiac Electrophysiology PN ---
Assessment/Plan Assessment/Plan 1. S/P Septic shock due to diabetic ketoacidosis. On broad-spectrum IV antibiotic. Off pressors Echocardiogram showed EF 60%. Rule out for RI 2. Diabetic ketoacidosis, on IV fluids and insulin. 3. S/P Cardiac arrest needing atropine. Due to respiratory failure. Now in SR 4. White count of 36,000, abdominal cellulitis, likely because of the patient's DKA. IV antibiotic per Dr. Colbert. 5. Morbid obesity. 6. Respiratory failure. re intubated. 7. ARF on HD now via Right IJ 8. Anemia hb 6.9. Transfused again 9. Severe hyponatremia, sodium 118, likely due to diabetic ketoacidosis. Resolved now 140s DW RN Subjective Subjective In ICU alert and off pressors on Vent. Had New Right IJ Dialysis catheter placement. S/P 2 units of PRBC Objective Last 24 Hour Vital Signs Date Time Temp Pulse Resp B/P (MAP) Pulse Ox O2 Delivery O2 Flow Rate FiO2 08/09/17 16:46 92 26 50 08/09/17 16:00 50 08/09/17 16:00 98 08/09/17 14:38 96 25 50 08/09/17 13:26 91 24 50 08/09/17 12:00 50 08/09/17 12:00 98 08/09/17 10:41 91 23 50 08/09/17 08:58 94 26 50 08/09/17 08:00 98 08/09/17 08:00 50 08/09/17 07:45 100.3 08/09/17 07:25 96 26 50 08/09/17 07:10 100.0 08/09/17 07:00 78 23 101/61 100 Mechanical Ventilator 50 08/09/17 06:00 86 21 112/84 100 Mechanical Ventilator 50 08/09/17 05:23 92 29 50 08/09/17 05:03 50 08/09/17 05:00 89 19 105/58 99 Mechanical Ventilator 50 08/09/17 04:00 99.3 95 21 110/83 99 Mechanical Ventilator 50 99.3 08/09/17 04:00 91 08/09/17 03:00 90 25 107/70 99 Mechanical Ventilator 50 08/09/17 02:47 94 30 50 08/09/17 02:00 94 19 125/72 99 Mechanical Ventilator 50 08/09/17 01:30 118/68 08/09/17 01:18 85 22 50 08/09/17 01:00 85 24 118/68 99 Mechanical Ventilator 70 08/09/17 00:00 70 08/09/17 00:00 95 08/09/17 00:00 99.5 92 21 124/88 98 Mechanical Ventilator 70 99.5 08/08/17 23:00 99 24 124/75 98 Mechanical Ventilator 50 08/08/17 22:51 98 28 50 08/08/17 22:00 101 28 120/72 96 Mechanical Ventilator 50 08/08/17 21:48 101 27 50 08/08/17 21:25 100.1 08/08/17 21:00 99.8 99 19 125/75 96 Mechanical Ventilator 30 99.8 08/08/17 20:00 50 08/08/17 20:00 99 08/08/17 20:00 100.1 90 22 121/66 96 Mechanical Ventilator 30 100.1 08/08/17 19:08 92 25 50 08/08/17 19:00 97 22 118/74 96 Mechanical Ventilator 30 08/08/17 18:24 Mechanical Ventilator 50 08/08/17 18:07 99.6 28 107/65 Mechanical Ventilator 50 99.6 08/08/17 17:05 93 20 50 08/08/17 17:00 93 22 113/67 96 Mechanical Ventilator 30 Intake and Output 08/08/17 08/09/17 19:00 07:00 Intake Total 890 ml 890 ml Output Total 668 ml 295 ml Balance 222 ml 595 ml IV Total 410 ml 410 ml Tube Feeding 480 ml 480 ml Output Urine Total 455 ml 295 ml Hemodialysis UF 213 ml # Voids 192 # Bowel Movements 1 Laboratory Tests Test 08/09/17 05:00 White Blood Count 14.7 K/UL (4.8-10.8) H Red Blood Count 3.13 M/UL (4.20-5.40) L Hemoglobin 6.8 G/DL (12.0-16.0) *L Hematocrit 21.9 % (37.0-47.0) L Mean Corpuscular Volume 70 FL (80-99) L Mean Corpuscular Hemoglobin 21.6 PG (27.0-31.0) L Mean Corpuscular Hemoglobin Concent 30.9 G/DL (32.0-36.0) L Red Cell Distribution Width 18.4 % (11.6-14.8) H Platelet Count 296 K/UL (150-450) Mean Platelet Volume 5.9 FL (6.5-10.1) L Neutrophils (%) (Auto) % (45.0-75.0) Lymphocytes (%) (Auto) % (20.0-45.0) Monocytes (%) (Auto) % (1.0-10.0) Eosinophils (%) (Auto) % (0.0-3.0) Basophils (%) (Auto) % (0.0-2.0) Differential Total Cells Counted 100 Neutrophils % (Manual) 84 % (45-75) H Lymphocytes % (Manual) 10 % (20-45) L Monocytes % (Manual) 4 % (1-10) Eosinophils % (Manual) 2 % (0-3) Basophils % (Manual) 0 % (0-2) Band Neutrophils 0 % (0-8) Platelet Estimate Adequate Platelet Morphology Normal Hypochromasia 1+ Anisocytosis 1+ Microcytosis 1+ Stool Occult Blood Negative (NEGATIVE) Sodium Level 143 MMOL/L (136-145) Potassium Level 3.3 MMOL/L (3.5-5.1) L Chloride Level 107 MMOL/L (98-107) Carbon Dioxide Level 26 MMOL/L (21-32) Anion Gap 10 mmol/L (5-15) Blood Urea Nitrogen 58 mg/dL (7-18) H Creatinine 5.6 MG/DL (0.55-1.30) H Estimat Glomerular Filtration Rate 8.1 mL/min (>60) Glucose Level 146 MG/DL (74-106) H Calcium Level 8.0 MG/DL (8.5-10.1) L Phosphorus Level 4.6 MG/DL (2.5-4.9) Magnesium Level 2.2 MG/DL (1.8-2.4) Objective HEAD AND NECK: No JVD, Orally intubated. Right IJ Manjinder catheter LUNGS: Coarse rhonchi. CARDIOVASCULAR: Regular S1 and S2 with no gallop. ABDOMEN: Cellulitis of the lower abdomen and erythema. EXTREMITIES: 1+ pitting edema.Adama Tracey MD August 09, 2017 17:00
--- NOTE | 2017-08-09 17:04 | Diagnostic Imaging Report ---
Indication: Needs dialysis access Technique: Procedure performed at bedside. Procedural timeout performed. Total sterile technique, including sterile probe cover and sterile gel, sterile gloves, hand hygiene, hat, mask, sterile gown, large sterile drape, and preparation with 2% chlorhexidine utilized. Local anesthesia with 1% lidocaine. Under real-time ultrasound guidance, puncture right internal jugular vein using 21-gauge micropuncture needle, passage 0.018 guidewire, insertion 4 German micropuncture introducer, passage 0.035 guidewire, over which was passed serial dilators and then a 13 German 15 cm triple-lumen temporary dialysis catheter. Guidewire was removed. Catheter ports were aspirated and flushed. The catheter was fixed to the skin. Patient tolerated procedure well. A chest x-ray was obtained, documents catheter tip position at the mid superior vena cava. No pneumothorax Comparison: none Findings: As above Impression: Successful bedside placement of right transjugular temporary dialysis catheter, as described.
[2017-08-09] MEDS ORDERED: D5W 275ml ONE (17:32)
[2017-08-09] MEDS ORDERED: NS 275ml ONE ×2 (17:32→17:40)
[2017-08-09] MEDS: Dyna-Hex 2% Top Sol 2oz TOPIC SCH (20:34)
[2017-08-10] VITALS (25 sets, daily range): BP systolic 90–142; BP diastolic 53–75
[2017-08-10 04:38] LABS: BASOPHILS % (AUTO) 0.7 % (0.0-2.0); EOSINOPHILS % (AUTO) 1.3 % (0.0-3.0); HEMATOCRIT 25.8 % (37.0-47.0); HEMOGLOBIN 8.1 G/DL (12.0-16.0); MEAN CORPUSCULAR VOLUME 73 FL (80-99); MONOCYTES % (AUTO) 4.5 % (1.0-10.0); NEUTROPHILS % (AUTO) 84.6 % (45.0-75.0); PLATELET COUNT 264 K/UL (150-450); RED BLOOD COUNT 3.56 M/UL (4.20-5.40); RED CELL DISTRIBUTION WIDTH 18.7 % (11.6-14.8); WHITE BLOOD COUNT 14.6 K/UL (4.8-10.8)
[2017-08-10 04:59] LABS: ANION GAP 7 mmol/L (5-15); BLOOD UREA NITROGEN 43 mg/dL (7-18); CALCIUM 8.4 MG/DL (8.5-10.1); CARBON DIOXIDE 29 MMOL/L (21-32); CHLORIDE 105 MMOL/L (98-107); CREATININE 4.2 MG/DL (0.55-1.30); POTASSIUM 3.7 MMOL/L (3.5-5.1); SODIUM 141 MMOL/L (136-145)
[2017-08-10 05:21] LABS: INR 0.9 (0.9-1.1)
[2017-08-10] MEDS: NovoLOG Insulin Flexpen SUBQ SCH ×4 (06:09→20:43)
[2017-08-10] MEDS: Heparin 5000 units/ml inj SUBQ SCH ×3 (06:15→23:07)
--- NOTE | 2017-08-10 07:04 | General Progress Note ---
Assessment/Plan Problem List: (1) Cellulitis of abdominal wall ICD Codes: L03.311 - Cellulitis of abdominal wall SNOMED: 91345006 (2) Acute respiratory failure ICD Codes: J96.00 - Acute respiratory failure, unspecified whether with hypoxia or hypercapnia SNOMED: 63972882 (3) New onset type 1 diabetes mellitus, uncontrolled ICD Codes: E10.65 - Type 1 diabetes mellitus with hyperglycemia SNOMED: 475258664 (4) Necrotizing fasciitis ICD Codes: M72.6 - Necrotizing fasciitis SNOMED: 75259372 (5) DKA (diabetic ketoacidoses) ICD Codes: E13.10 - Other specified diabetes mellitus with ketoacidosis without coma SNOMED: 93399450, 750252607 Assessment/Plan continue Levemir 20 units bid continue NISS Subjective ROS Limited/Unobtainable: Yes Allergies: Coded Allergies: PENICILLINS (Verified Allergy, Unknown, 07/30/17) According to mother, the patient is allergic to Penicillins Subjective events noted - Objective Last 24 Hour Vital Signs Date Time Temp Pulse Resp B/P (MAP) Pulse Ox O2 Delivery O2 Flow Rate FiO2 08/10/17 06:00 98.6 82 19 123/63 100 Mechanical Ventilator 50 98.6 08/10/17 05:00 86 24 112/58 100 Mechanical Ventilator 50 08/10/17 04:58 88 24 50 08/10/17 04:00 84 08/10/17 04:00 98.8 89 26 124/67 100 Mechanical Ventilator 50 98.8 08/10/17 04:00 50 08/10/17 03:30 86 25 50 08/10/17 03:00 88 24 138/71 100 Mechanical Ventilator 50 08/10/17 02:00 88 23 142/70 100 Mechanical Ventilator 50 08/10/17 01:36 Mechanical Ventilator 50 08/10/17 01:30 99.1 84 20 133/73 Mechanical Ventilator 50.0 99.1 08/10/17 01:30 87 22 50 08/10/17 01:00 87 23 120/68 100 Mechanical Ventilator 50 08/10/17 00:00 83 19 142/75 100 Mechanical Ventilator 50 08/09/17 23:30 86 21 50 08/09/17 23:00 88 24 141/81 100 Mechanical Ventilator 50 08/09/17 22:00 98.8 91 20 133/75 Mechanical Ventilator 50 98.8 08/09/17 22:00 Mechanical Ventilator 50 08/09/17 21:03 91 22 50 08/09/17 21:00 88 21 140/88 100 Mechanical Ventilator 50 08/09/17 20:00 99.6 93 22 136/69 100 Mechanical Ventilator 50 99.6 08/09/17 20:00 50 08/09/17 20:00 85 08/09/17 19:30 94 20 50 08/09/17 19:00 88 21 138/68 100 Mechanical Ventilator 50 08/09/17 18:00 97 21 141/75 100 Mechanical Ventilator 50 08/09/17 17:00 99.2 84 21 135/79 100 Mechanical Ventilator 50 99.2 08/09/17 16:46 92 26 50 08/09/17 16:00 50 08/09/17 16:00 98 08/09/17 16:00 96 21 129/73 100 Mechanical Ventilator 50 08/09/17 15:00 93 24 123/70 100 Mechanical Ventilator 50 08/09/17 14:38 96 25 50 08/09/17 14:00 93 25 129/69 100 Mechanical Ventilator 50 08/09/17 13:26 91 24 50 08/09/17 13:00 93 25 118/66 100 Mechanical Ventilator 50 08/09/17 12:00 99.8 93 25 123/68 100 Mechanical Ventilator 50 99.8 08/09/17 12:00 50 08/09/17 12:00 98 08/09/17 11:00 91 27 109/60 100 Mechanical Ventilator 50 08/09/17 10:41 91 23 50 08/09/17 10:00 93 27 118/69 100 Mechanical Ventilator 50 08/09/17 09:00 95 27 137/72 100 Mechanical Ventilator 50 08/09/17 08:58 94 26 50 08/09/17 08:00 98 08/09/17 08:00 50 08/09/17 08:00 99.5 96 28 114/67 100 Mechanical Ventilator 50 99.5 08/09/17 07:45 100.3 08/09/17 07:25 96 26 50 08/09/17 07:10 100.0 Intake and Output 18 08/10/17 19:00 07:00 Intake Total 1110 ml 440 ml Output Total 360 ml 3360 ml Balance 750 ml -2920 ml IV Total 630 ml Tube Feeding 480 ml 440 ml Output Urine Total 360 ml 360 ml Hemodialysis UF 3000 ml # Bowel Movements 1 Laboratory Tests 08/10/17 03:50: White Blood Count 14.6H, Red Blood Count 3.56L, Hemoglobin 8.1L, Hematocrit 25.8L, Mean Corpuscular Volume 73L, Mean Corpuscular Hemoglobin 22.9L, Mean Corpuscular Hemoglobin Concent 31.5L, Red Cell Distribution Width 18.7H, Platelet Count 264, Mean Platelet Volume 5.6L, Neutrophils (%) (Auto) 84.6H, Lymphocytes (%) (Auto) 9.0L, Monocytes (%) (Auto) 4.5, Eosinophils (%) (Auto) 1.3, Basophils (%) (Auto) 0.7, Prothrombin Time 9.2L, Prothromb Time International Ratio 0.9, Activated Partial Thromboplast Time 30, Sodium Level 141, Potassium Level 3.7, Chloride Level 105, Carbon Dioxide Level 29, Anion Gap 7, Blood Urea Nitrogen 43H, Creatinine 4.2H, Estimat Glomerular Filtration Rate 11.3, Glucose Level 126H, Calcium Level 8.4L Height (Feet): 5 Height (Inches): 5.00 Weight (Pounds): 310 General Appearance: lethargic Neck: normal alignment Cardiovascular: regular rhythm Respiratory/Chest: decreased breath sounds Abdomen: normal bowel sounds Objective Current Medications Medications (Trade) Dose Ordered Sig/Tommy Route PRN Reason Start Time Stop Time Status Last Admin Dose Admin Acetaminophen (Tylenol) 650 mg EVERY 6 HOURS PRN RECTAL Prn pain/Temp > 100.5 08/08/17 06:00 09/05/17 19:57 Acetaminophen (Tylenol) 650 mg Q4H PRN NG Mild Pain/Temp > 100.5 08/08/17 21:00 09/07/17 20:59 08/09/17 07:10 Chlorhexidine Gluconate (Idalia-Hex 2%) 1 applic DAILY@1999 TOPIC 08/09/17 20:00 09/08/17 19:59 08/09/17 20:34 Clotrimazole (Lotrimin) 1 applic NEEDED TOPIC 08/08/17 05:30 09/07/17 05:29 Dextrose (Dextrose 50%) 25 ml STAT PRN IV Hypoglycemia 08/08/17 20:00 09/05/17 19:57 Dextrose (Dextrose 50%) 50 ml STAT PRN IV Hypoglycemia 08/08/17 20:00 09/05/17 19:57 Heparin Sodium (Porcine) (Heparin 5000 units/ml) 5,000 units Q8H SUBQ 08/08/17 07:00 09/05/17 14:59 08/10/17 06:15 Heparin Sodium/ Sodium Chloride (Heparin 2000 units/Ns 1000ml premix) 2,000 unit ONCE PRN IV Manjinder Cath Placement 08/09/17 14:15 08/10/17 23:59 Insulin Aspart (NovoLOG) Resistance sliding sc... BEFORE MEALS AND HS SUBQ 08/08/17 06:30 09/02/17 16:29 08/10/17 06:09 Insulin Detemir (Levemir) 20 units Q12HR SUBQ 08/08/17 09:00 09/06/17 08:59 08/09/17 20:36 Lidocaine HCl (Xylocaine 1% 30ml) 30 ml ONCE PRN INJ Manjinder Cath Placement 08/09/17 14:15 08/10/17 23:59 Linezolid 300 ml @ 300 mls/hr Q12HR IVPB 08/08/17 09:00 08/14/17 08:59 08/09/17 20:34 Lorazepam (Ativan 2mg/ml 1ml) 2 mg Q4H PRN IV For Anxiety 08/08/17 01:00 08/12/17 20:59 08/08/17 23:30 Meropenem 500 mg/ Sodium Chloride 110 ml @ 220 mls/hr Q12HR IVPB 08/08/17 09:00 08/10/17 23:59 08/09/17 20:34 Norepinephrine Bitartrate 4 mg/ Dextrose 250 ml @ 0 mls/hr Q24H IV 08/08/17 01:30 09/07/17 01:29 08/08/17 01:41 Pantoprazole (Protonix) 40 mg BID IVP 08/09/17 18:00 09/06/17 08:59 08/09/17 18:00 Silver Sulfadiazine (Silvadene Cream 25gm) 1 applic DAILY TOPIC 08/08/17 09:00 08/31/17 10:29 08/09/17 09:40 Item Value Date Time Bedside Blood Glucose 120 mg/dl 08/10/17 0631 Bedside Blood Glucose 100 mg/dl 08/09/17 2101 Bedside Blood Glucose 150 mg/dl H 08/09/17 1630 Bedside Blood Glucose 144 mg/dl H 08/09/17 1317 Bedside Blood Glucose 125 mg/dl H 08/09/17 0954 Bedside Blood Glucose 166 mg/dl H 08/09/17 0646 SAQIB TOM August 10, 2017 07:04
--- NOTE | 2017-08-10 07:47 | Nephrology Progress Note ---
Assessment/Plan Assessment/Plan 1. SCARLET- ATN non resolving. HD today for volume control today again - multifact ATN (sepsis induced inflammotory cytokine prox tub damage/ ishchemic ATN hypotension/vol dep) - new HD line placed. femoral line removed 2. DKA/Met Acidosis - resolved 3. Septic Shock- etiology likely from abd cellulitis. Abx mgmt per ID. - Gen Surg mgmt of abdomen paniculitis. 4. Hypotension- resolved now off pressors. Monitor with HD + UF 5. Resp FL- 6. Hypok+/Ca/Phos- replace prn 7. Anemia- 2 Unit PRBC yesterday. When stable Gi anticipates procedure Subjective Date patient seen: August 10, 2017 Time patient seen: 07:40 ROS Limited/Unobtainable: Yes Allergies: Coded Allergies: PENICILLINS (Verified Allergy, Unknown, 07/30/17) According to mother, the patient is allergic to Penicillins Subjective Patient intubated on mechanical ventilation. Poss extubation today Objective Last 24 Hour Vital Signs Date Time Temp Pulse Resp B/P (MAP) Pulse Ox O2 Delivery O2 Flow Rate FiO2 08/10/17 07:00 82 19 106/58 100 Mechanical Ventilator 50 08/10/17 06:57 81 23 50 08/10/17 06:00 98.6 82 19 123/63 100 Mechanical Ventilator 50 98.6 08/10/17 05:00 86 24 112/58 100 Mechanical Ventilator 50 08/10/17 04:58 88 24 50 08/10/17 04:00 84 08/10/17 04:00 98.8 89 26 124/67 100 Mechanical Ventilator 50 98.8 08/10/17 04:00 50 08/10/17 03:30 86 25 50 08/10/17 03:00 88 24 138/71 100 Mechanical Ventilator 50 08/10/17 02:00 88 23 142/70 100 Mechanical Ventilator 50 08/10/17 01:36 Mechanical Ventilator 50 08/10/17 01:30 99.1 84 20 133/73 Mechanical Ventilator 50.0 99.1 08/10/17 01:30 87 22 50 08/10/17 01:00 87 23 120/68 100 Mechanical Ventilator 50 08/10/17 00:00 83 19 142/75 100 Mechanical Ventilator 50 08/09/17 23:30 86 21 50 08/09/17 23:00 88 24 141/81 100 Mechanical Ventilator 50 08/09/17 22:00 98.8 91 20 133/75 Mechanical Ventilator 50 98.8 08/09/17 22:00 Mechanical Ventilator 50 08/09/17 21:03 91 22 50 08/09/17 21:00 88 21 140/88 100 Mechanical Ventilator 50 08/09/17 20:00 99.6 93 22 136/69 100 Mechanical Ventilator 50 99.6 08/09/17 20:00 50 08/09/17 20:00 85 08/09/17 19:30 94 20 50 08/09/17 19:00 88 21 138/68 100 Mechanical Ventilator 50 08/09/17 18:00 97 21 141/75 100 Mechanical Ventilator 50 08/09/17 17:00 99.2 84 21 135/79 100 Mechanical Ventilator 50 99.2 08/09/17 16:46 92 26 50 08/09/17 16:00 50 08/09/17 16:00 98 08/09/17 16:00 96 21 129/73 100 Mechanical Ventilator 50 08/09/17 15:00 93 24 123/70 100 Mechanical Ventilator 50 08/09/17 14:38 96 25 50 08/09/17 14:00 93 25 129/69 100 Mechanical Ventilator 50 08/09/17 13:26 91 24 50 08/09/17 13:00 93 25 118/66 100 Mechanical Ventilator 50 08/09/17 12:00 99.8 93 25 123/68 100 Mechanical Ventilator 50 99.8 08/09/17 12:00 50 08/09/17 12:00 98 08/09/17 11:00 91 27 109/60 100 Mechanical Ventilator 50 08/09/17 10:41 91 23 50 08/09/17 10:00 93 27 118/69 100 Mechanical Ventilator 50 08/09/17 09:00 95 27 137/72 100 Mechanical Ventilator 50 08/09/17 08:58 94 26 50 08/09/17 08:00 98 08/09/17 08:00 50 08/09/17 08:00 99.5 96 28 114/67 100 Mechanical Ventilator 50 99.5 08/09/17 07:45 100.3 Intake and Output 08/09/18 08/10/18 19:00 07:00 Intake Total 1110 ml 480 ml Output Total 360 ml 3390 ml Balance 750 ml -2910 ml IV Total 630 ml Tube Feeding 480 ml 480 ml Output Urine Total 360 ml 390 ml Hemodialysis UF 3000 ml # Bowel Movements 1 Laboratory Tests 08/10/17 03:50: White Blood Count 14.6H, Red Blood Count 3.56L, Hemoglobin 8.1L, Hematocrit 25.8L, Mean Corpuscular Volume 73L, Mean Corpuscular Hemoglobin 22.9L, Mean Corpuscular Hemoglobin Concent 31.5L, Red Cell Distribution Width 18.7H, Platelet Count 264, Mean Platelet Volume 5.6L, Neutrophils (%) (Auto) 84.6H, Lymphocytes (%) (Auto) 9.0L, Monocytes (%) (Auto) 4.5, Eosinophils (%) (Auto) 1.3, Basophils (%) (Auto) 0.7, Prothrombin Time 9.2L, Prothromb Time International Ratio 0.9, Activated Partial Thromboplast Time 30, Sodium Level 141, Potassium Level 3.7, Chloride Level 105, Carbon Dioxide Level 29, Anion Gap 7, Blood Urea Nitrogen 43H, Creatinine 4.2H, Estimat Glomerular Filtration Rate 11.3, Glucose Level 126H, Calcium Level 8.4L Height (Feet): 5 Height (Inches): 5.00 Weight (Pounds): 310 General Appearance: WD/WN, no apparent distress EENT: PERRL/EOMI, normal ENT inspection Neck: non-tender, normal alignment Cardiovascular: normal peripheral pulses, normal rate Respiratory/Chest: lungs clear, normal breath sounds Abdomen: other - abdominal erythema improved Edema: 1+ Arm (L), 1+ Arm (R), 1+ Leg (L), 1+ Leg (R), 1+ Pedal (L), 1+ Pedal ( R), 1+ Generalized Carlton Guzmán M.D. August 10, 2017 07:47
--- NOTE | 2017-08-10 08:53 | Pulmonology Progress Note ---
Assessment/Plan Assessment/Plan respiratory failure s/p extubation and now with reintubation DKA sepsis abd wall cellulitis fluid overload effusions and edema anemia PLAN vent support start wean as able HD with UF- 3 liters removed monitor for change and recommend from pulm standpoint ICU care patient critical Subjective Allergies: Coded Allergies: PENICILLINS (Verified Allergy, Unknown, 07/30/17) According to mother, the patient is allergic to Penicillins Subjective on vent d/w RN care noted Objective Last 24 Hour Vital Signs Date Time Temp Pulse Resp B/P (MAP) Pulse Ox O2 Delivery O2 Flow Rate FiO2 08/10/17 08:00 80 18 116/59 100 Mechanical Ventilator 50 08/10/17 07:00 82 19 106/58 100 Mechanical Ventilator 50 08/10/17 06:57 81 23 50 08/10/17 06:00 98.6 82 19 123/63 100 Mechanical Ventilator 50 98.6 08/10/17 05:00 86 24 112/58 100 Mechanical Ventilator 50 08/10/17 04:58 88 24 50 08/10/17 04:00 84 08/10/17 04:00 98.8 89 26 124/67 100 Mechanical Ventilator 50 98.8 08/10/17 04:00 50 08/10/17 03:30 86 25 50 08/10/17 03:00 88 24 138/71 100 Mechanical Ventilator 50 08/10/17 02:00 88 23 142/70 100 Mechanical Ventilator 50 08/10/17 01:36 Mechanical Ventilator 50 08/10/17 01:30 99.1 84 20 133/73 Mechanical Ventilator 50.0 99.1 08/10/17 01:30 87 22 50 08/10/17 01:00 87 23 120/68 100 Mechanical Ventilator 50 08/10/17 00:00 83 19 142/75 100 Mechanical Ventilator 50 08/09/17 23:30 86 21 50 08/09/17 23:00 88 24 141/81 100 Mechanical Ventilator 50 08/09/17 22:00 98.8 91 20 133/75 Mechanical Ventilator 50 98.8 08/09/17 22:00 Mechanical Ventilator 50 08/09/17 21:03 91 22 50 08/09/17 21:00 88 21 140/88 100 Mechanical Ventilator 50 08/09/17 20:00 99.6 93 22 136/69 100 Mechanical Ventilator 50 99.6 08/09/17 20:00 50 5/15/18 20:00 85 08/09/17 19:30 94 20 50 08/09/17 19:00 88 21 138/68 100 Mechanical Ventilator 50 08/09/17 18:00 97 21 141/75 100 Mechanical Ventilator 50 08/09/17 17:00 99.2 84 21 135/79 100 Mechanical Ventilator 50 99.2 08/09/17 16:46 92 26 50 08/09/17 16:00 50 08/09/17 16:00 98 08/09/17 16:00 96 21 129/73 100 Mechanical Ventilator 50 08/09/17 15:00 93 24 123/70 100 Mechanical Ventilator 50 08/09/17 14:38 96 25 50 08/09/17 14:00 93 25 129/69 100 Mechanical Ventilator 50 08/09/17 13:26 91 24 50 08/09/17 13:00 93 25 118/66 100 Mechanical Ventilator 50 08/09/17 12:00 99.8 93 25 123/68 100 Mechanical Ventilator 50 99.8 08/09/17 12:00 50 08/09/17 12:00 98 08/09/17 11:00 91 27 109/60 100 Mechanical Ventilator 50 08/09/17 10:41 91 23 50 08/09/17 10:00 93 27 118/69 100 Mechanical Ventilator 50 08/09/17 09:00 95 27 137/72 100 Mechanical Ventilator 50 08/09/17 08:58 94 26 50 Intake and Output 08/09/17 08/10/17 19:00 07:00 Intake Total 1110 ml 480 ml Output Total 360 ml 3390 ml Balance 750 ml -2910 ml IV Total 630 ml Tube Feeding 480 ml 480 ml Output Urine Total 360 ml 390 ml Hemodialysis UF 3000 ml # Bowel Movements 1 Objective WDWN on vent NAD reduced breath sounds bilaterally without rhonchi or wheeze [id number] without MRG NABS nontender no HSM no CC edema nonfocal Microbiology Date/Time Source Procedure Growth Status 08/08/17 10:20 Blood Blood Culture - Preliminary NO GROWTH AFTER 24 HOURS Resulted 08/08/17 07:00 Blood Blood Culture - Preliminary NO GROWTH AFTER 24 HOURS Resulted Laboratory Tests 08/10/17 03:50: White Blood Count 14.6H, Red Blood Count 3.56L, Hemoglobin 8.1L, Hematocrit 25.8L, Mean Corpuscular Volume 73L, Mean Corpuscular Hemoglobin 22.9L, Mean Corpuscular Hemoglobin Concent 31.5L, Red Cell Distribution Width 18.7H, Platelet Count 264, Mean Platelet Volume 5.6L, Neutrophils (%) (Auto) 84.6H, Lymphocytes (%) (Auto) 9.0L, Monocytes (%) (Auto) 4.5, Eosinophils (%) (Auto) 1.3, Basophils (%) (Auto) 0.7, Prothrombin Time 9.2L, Prothromb Time International Ratio 0.9, Activated Partial Thromboplast Time 30, Sodium Level 141, Potassium Level 3.7, Chloride Level 105, Carbon Dioxide Level 29, Anion Gap 7, Blood Urea Nitrogen 43H, Creatinine 4.2H, Estimat Glomerular Filtration Rate 11.3, Glucose Level 126H, Calcium Level 8.4L Current Medications Medications (Trade) Dose Ordered Sig/Tommy Route PRN Reason Start Time Stop Time Status Last Admin Dose Admin Acetaminophen (Tylenol) 650 mg EVERY 6 HOURS PRN RECTAL Prn pain/Temp > 100.5 08/08/17 06:00 09/05/17 19:57 Acetaminophen (Tylenol) 650 mg Q4H PRN NG Mild Pain/Temp > 100.5 08/08/17 21:00 09/07/17 20:59 08/09/17 07:10 Chlorhexidine Gluconate (Idalia-Hex 2%) 1 applic DAILY@2000 TOPIC 08/09/17 20:00 09/08/17 19:59 08/09/17 20:34 Clotrimazole (Lotrimin) 1 applic NEEDED TOPIC 08/08/17 05:30 09/07/17 05:29 Dextrose (Dextrose 50%) 25 ml STAT PRN IV Hypoglycemia 08/08/17 20:00 09/05/17 19:57 Dextrose (Dextrose 50%) 50 ml STAT PRN IV Hypoglycemia 08/08/17 20:00 09/05/17 19:57 Heparin Sodium (Porcine) (Heparin 5000 units/ml) 5,000 units Q8H SUBQ 08/08/17 07:00 09/05/17 14:59 08/10/17 06:15 Heparin Sodium/ Sodium Chloride (Heparin 2000 units/Ns 1000ml premix) 2,000 unit ONCE PRN IV Manjinder Cath Placement 08/09/17 14:15 08/10/17 23:59 Insulin Aspart (NovoLOG) Resistance sliding sc... BEFORE MEALS AND HS SUBQ 08/08/17 06:30 09/02/17 16:29 08/10/17 06:09 Insulin Detemir (Levemir) 20 units Q12HR SUBQ 08/08/17 09:00 09/06/17 08:59 08/09/17 20:36 Lidocaine HCl (Xylocaine 1% 30ml) 30 ml ONCE PRN INJ Manjinder Cath Placement 08/09/17 14:15 08/10/17 23:59 Linezolid 300 ml @ 300 mls/hr Q12HR IVPB 08/08/17 09:00 08/14/17 08:59 08/09/17 20:34 Lorazepam (Ativan 2mg/ml 1ml) 2 mg Q4H PRN IV For Anxiety 08/08/17 01:00 08/12/17 20:59 08/08/17 23:30 Meropenem 500 mg/ Sodium Chloride 110 ml @ 220 mls/hr Q12HR IVPB 08/08/17 09:00 08/10/17 23:59 08/09/17 20:34 Norepinephrine Bitartrate 4 mg/ Dextrose 250 ml @ 0 mls/hr Q24H IV 08/08/17 01:30 09/07/17 01:29 08/08/17 01:41 Pantoprazole (Protonix) 40 mg BID IVP 08/09/17 18:00 09/06/17 08:59 08/09/17 18:00 Silver Sulfadiazine (Silvadene Cream 25gm) 1 applic DAILY TOPIC 08/08/17 09:00 08/31/17 10:29 08/09/17 09:40 Stew Hopson MD August 10, 2017 08:53
[2017-08-10] MEDS: Pantoprazole Inj IVP SCH ×2 (09:03→17:55)
[2017-08-10] MEDS: Meropenem 500 MG in NS 110 ML IVPB SCH ×2 (09:04→20:43)
[2017-08-10] MEDS: Levemir Flexpen SUBQ SCH ×2 (09:05→20:46)
--- NOTE | 2017-08-10 14:34 | Infectious Diseases Prog Note ---
Assessment/Plan Problems: (1) Cellulitis of abdominal wall Assessment & Plan: complicated with panniculitis, now improving since her lymphedema in the abdominal skin and fluids retention are improving with HD, not much tender in the left lower abdomen , continue aggressive HD to improve her lymphedema and cellulitis , will continue meropenem and zyvox empiric coverage for now , surgery has been following , repeated blood culture is negative so far . she has slow recovery due to significant lymphedema and fluids overload. recommend to remove the left femoral HD catheter (2) UTI (urinary tract infection) Assessment & Plan: culture grew strep agalactiae and staph aureus , she is already on meropenem and zyvox (3) Septic shock Assessment & Plan: due to the above , on pressor on/off as needed , blood culture was negative , has improvement in her leukocytosis, will need to pull out the left femoral HD catheter since it is non functional , await repeated blood culture , continue meropenem and zyvox , monitor WBC (4) Respiratory failure requiring intubation Assessment & Plan: with fluids over load and pleural effusion, now intubated on mechanical ventilation, continue HD to remove more fluids as tolerated , monitor CXR and ABG (5) SCARLET (acute kidney injury) Assessment & Plan: with no significant improvement , required HD , due to the above, has mild improvement in her urine output, nephrology is following, monitor UOP (6) DKA (diabetic ketoacidoses) Assessment & Plan: due to poorly controlled diabetes and sepsis, S/P insulin drip in the ICU , continue close monitor of her blood glucose to keep between 80 -120 (7) Leg wound, left Assessment & Plan: with infection due to staph aureus and klebsiella oxytoca, already on meropenem and zyvox , continue local wound care as per hospital protocol , bone scan to rule out underlying osteomyelitis is pending Subjective Constitutional: Reports: no symptoms HEENT: Reports: no symptoms Respiratory: Reports: no symptoms Breasts: Reports: no symptoms Cardiovascular: Reports: no symptoms Gastrointestinal/Abdominal: Reports: no symptoms Genitourinary: Reports: no symptoms Neurologic: Reports: no symptoms Psychiatric: Reports: no symptoms Skin: Reports: no symptoms Endocrine: Reports: no symptoms Hematologic: Reports: no symptoms Musculoskeletal: Reports: no symptoms Allergies: Coded Allergies: PENICILLINS (Verified Allergy, Unknown, 07/30/17) According to mother, the patient is allergic to Penicillins Subjective she is still intubated on mechanical ventilation, awake and responsive. denied any pain , had low grade fever today with less lymphedema in her lower abdomen skin and less redness with mild left groin lymphadenopathy , small skin breaks drying out at the folds site . left femoral HD catheter is clotted Objective Vital Signs Last 24 Hour Vital Signs Date Time Temp Pulse Resp B/P (MAP) Pulse Ox O2 Delivery O2 Flow Rate FiO2 08/10/17 12:50 85 25 35 08/10/17 12:00 35 08/10/17 11:30 90 23 35 08/10/17 09:00 90 23 35 08/10/17 09:00 35 08/10/17 09:00 99 08/10/17 09:00 99.6 91 25 119/65 98 Mechanical Ventilator 35 99.6 08/10/17 08:00 50 08/10/17 08:00 80 18 116/59 100 Mechanical Ventilator 50 08/10/17 07:00 82 19 106/58 100 Mechanical Ventilator 50 08/10/17 06:57 81 23 50 08/10/17 06:00 98.6 82 19 123/63 100 Mechanical Ventilator 50 98.6 08/10/17 05:00 86 24 112/58 100 Mechanical Ventilator 50 08/10/17 04:58 88 24 50 08/10/17 04:00 84 08/10/17 04:00 98.8 89 26 124/67 100 Mechanical Ventilator 50 98.8 08/10/17 04:00 50 08/10/17 03:30 86 25 50 08/10/17 03:00 88 24 138/71 100 Mechanical Ventilator 50 08/10/17 02:00 88 23 142/70 100 Mechanical Ventilator 50 08/10/17 01:36 Mechanical Ventilator 50 08/10/17 01:30 99.1 84 20 133/73 Mechanical Ventilator 50.0 99.1 08/10/17 01:30 87 22 50 08/10/17 01:00 87 23 120/68 100 Mechanical Ventilator 50 08/10/17 00:00 83 19 142/75 100 Mechanical Ventilator 50 08/09/17 23:30 86 21 50 08/09/17 23:00 88 24 141/81 100 Mechanical Ventilator 50 08/09/17 22:00 98.8 91 20 133/75 Mechanical Ventilator 50 98.8 08/09/17 22:00 Mechanical Ventilator 50 08/09/17 21:03 91 22 50 08/09/17 21:00 88 21 140/88 100 Mechanical Ventilator 50 08/09/17 20:00 99.6 93 22 136/69 100 Mechanical Ventilator 50 99.6 08/09/17 20:00 50 08/09/17 20:00 85 08/09/17 19:30 94 20 50 08/09/17 19:00 88 21 138/68 100 Mechanical Ventilator 50 08/09/17 18:00 97 21 141/75 100 Mechanical Ventilator 50 08/09/17 17:00 99.2 84 21 135/79 100 Mechanical Ventilator 50 99.2 08/09/17 16:46 92 26 50 08/09/17 16:00 50 08/09/17 16:00 98 08/09/17 16:00 96 21 129/73 100 Mechanical Ventilator 50 08/09/17 15:00 93 24 123/70 100 Mechanical Ventilator 50 08/09/17 14:38 96 25 50 Height (Feet): 5 Height (Inches): 5.00 Weight (Pounds): 310 General Appearance: WD/WN, no acute distress HEENT: normocephalic, atraumatic, anicteric, mucous membranes moist, PERRL Respiratory/Chest: chest wall non-tender, normal breath sounds, no respiratory distress, no accessory muscle use, decreased breath sounds, crackles/rales Cardiovascular: normal peripheral pulses, normal rate, regular rhythm, no gallop/murmur, no JVD Abdomen: normal bowel sounds, soft, non tender, no organomegaly, non distended , no mass, no scars, other - left lower quadarants skin lymphedema with redness and local tenderness Genitourinary: normal external genitalia Extremities: no cyanosis, no clubbing Skin: no rash, no lesions, ulcers - left leg and left lower abdomen skin fold Neurologic/Psychiatric: alert, responsive Lymphatic: no neck adenopathy, no groin adenopathy Musculoskeletal: normal muscle bulk Microbiology Date/Time Source Procedure Growth Status 08/08/17 10:20 Blood Blood Culture - Preliminary NO GROWTH AFTER 24 HOURS Resulted 08/08/17 07:00 Blood Blood Culture - Preliminary NO GROWTH AFTER 24 HOURS Resulted Laboratory Tests Test 08/10/17 03:50 08/10/17 04:30 08/10/17 08:48 08/10/17 10:00 White Blood Count 14.6 K/UL (4.8-10.8) H Red Blood Count 3.56 M/UL (4.20-5.40) L Hemoglobin 8.1 G/DL (12.0-16.0) L Hematocrit 25.8 % (37.0-47.0) L Mean Corpuscular Volume 73 FL (80-99) L Mean Corpuscular Hemoglobin 22.9 PG (27.0-31.0) L Mean Corpuscular Hemoglobin Concent 31.5 G/DL (32.0-36.0) L Red Cell Distribution Width 18.7 % (11.6-14.8) H Platelet Count 264 K/UL (150-450) Mean Platelet Volume 5.6 FL (6.5-10.1) L Neutrophils (%) (Auto) 84.6 % (45.0-75.0) H Lymphocytes (%) (Auto) 9.0 % (20.0-45.0) L Monocytes (%) (Auto) 4.5 % (1.0-10.0) Eosinophils (%) (Auto) 1.3 % (0.0-3.0) Basophils (%) (Auto) 0.7 % (0.0-2.0) Prothrombin Time 9.2 SEC (9.30-11.50) L Prothromb Time International Ratio 0.9 (0.9-1.1) Activated Partial Thromboplast Time 30 SEC (23-33) Sodium Level 141 MMOL/L (136-145) Potassium Level 3.7 MMOL/L (3.5-5.1) Chloride Level 105 MMOL/L (98-107) Carbon Dioxide Level 29 MMOL/L (21-32) Anion Gap 7 mmol/L (5-15) Blood Urea Nitrogen 43 mg/dL (7-18) H Creatinine 4.2 MG/DL (0.55-1.30) H Estimat Glomerular Filtration Rate 11.3 mL/min (>60) Glucose Level 126 MG/DL (74-106) H Calcium Level 8.4 MG/DL (8.5-10.1) L Stool Occult Blood Negative (NEGATIVE) Arterial Blood pH 7.497 (7.350-7.450) 7.490 (7.350-7.450) Arterial Blood Partial Pressure CO2 34.9 mmHg (35.0-45.0) L 35.8 mmHg (35.0-45.0) Arterial Blood Partial Pressure O2 143.8 mmHg (75.0-100.0) H 99.0 mmHg (75.0-100.0) Arterial Blood HCO3 26.4 mmol/L (22.0-26.0) H 27.0 mmol/L (22.0-26.0) H Arterial Blood Oxygen Saturation 97.7 % (92.0-98.0) 97.0 % (92.0-98.0) Arterial Blood Base Excess 3.1 3.7 Ravi Test Positive Positive Current Medications Medications (Trade) Dose Ordered Sig/Tommy Route PRN Reason Start Time Stop Time Status Last Admin Dose Admin Acetaminophen (Tylenol) 650 mg EVERY 6 HOURS PRN RECTAL Prn pain/Temp > 100.5 08/08/17 06:00 09/05/17 19:57 Acetaminophen (Tylenol) 650 mg Q4H PRN NG Mild Pain/Temp > 100.5 08/08/17 21:00 09/07/17 20:59 08/09/17 07:10 Chlorhexidine Gluconate (Idalia-Hex 2%) 1 applic DAILY@2000 TOPIC 08/09/17 20:00 09/08/17 19:59 08/09/17 20:34 Clotrimazole (Lotrimin) 1 applic NEEDED TOPIC 08/08/17 05:30 09/07/17 05:29 Dextrose (Dextrose 50%) 25 ml STAT PRN IV Hypoglycemia 08/08/17 20:00 09/05/17 19:57 Dextrose (Dextrose 50%) 50 ml STAT PRN IV Hypoglycemia 08/08/17 20:00 09/05/17 19:57 Heparin Sodium (Porcine) (Heparin 5000 units/ml) 5,000 units Q8H SUBQ 08/08/17 07:00 09/05/17 14:59 08/10/17 06:15 Heparin Sodium/ Sodium Chloride (Heparin 2000 units/Ns 1000ml premix) 2,000 unit ONCE PRN IV Manjinder Cath Placement 08/09/17 14:15 08/10/17 23:59 Insulin Aspart (NovoLOG) Resistance sliding sc... BEFORE MEALS AND HS SUBQ 08/08/17 06:30 09/02/17 16:29 08/10/17 11:37 Insulin Detemir (Levemir) 20 units Q12HR SUBQ 08/08/17 09:00 09/06/17 08:59 08/10/17 09:05 Lidocaine HCl (Xylocaine 1% 30ml) 30 ml ONCE PRN INJ Manjinder Cath Placement 08/09/17 14:15 08/10/17 23:59 Linezolid 300 ml @ 300 mls/hr Q12HR IVPB 08/08/17 09:00 08/14/17 08:59 08/10/17 10:02 Lorazepam (Ativan 2mg/ml 1ml) 2 mg Q4H PRN IV For Anxiety 08/08/17 01:00 08/12/17 20:59 08/08/17 23:30 Meropenem 500 mg/ Sodium Chloride 110 ml @ 220 mls/hr Q12HR IVPB 08/08/17 09:00 08/10/17 23:59 08/10/17 09:04 Norepinephrine Bitartrate 4 mg/ Dextrose 250 ml @ 0 mls/hr Q24H IV 08/08/17 01:30 09/07/17 01:29 08/08/17 01:41 Pantoprazole (Protonix) 40 mg BID IVP 08/09/17 18:00 09/06/17 08:59 08/10/17 09:03 Silver Sulfadiazine (Silvadene Cream 25gm) 1 applic DAILY TOPIC 08/08/17 09:00 08/31/17 10:29 08/10/17 09:04 Johanny Colbert M.D. August 10, 2017 14:34
--- NOTE | 2017-08-10 14:38 | GI Progress Note ---
Assessment/Plan Problems: (1) Anemia ICD Codes: D64.9 - Anemia, unspecified SNOMED: 787142269 (2) Diabetes mellitus ICD Codes: E11.9 - Type 2 diabetes mellitus without complications SNOMED: 33084893 Status: unchanged Status Narrative Discussed with Dr. Hernandez. Assessment/Plan Assessment - Sepsis, improved - resp failure, resolved - DKA - abd wall cellulitis - obesity - Renal failure - Anemia >> OB (+)(-) - s/p code, now re-intubated Recommendations - defer GI procedures, patient not stable - NGTFs per RD - ppi BID - elevated HOB - abx - follow labs and exam - check additional OB - transfuse PRN - fu labs Subjective Subjective limited Objective Last 24 Hour Vital Signs Date Time Temp Pulse Resp B/P (MAP) Pulse Ox O2 Delivery O2 Flow Rate FiO2 08/10/17 12:50 85 25 35 08/10/17 12:00 35 08/10/17 11:30 90 23 35 08/10/17 09:00 90 23 35 08/10/17 09:00 35 08/10/17 09:00 99 08/10/17 09:00 99.6 91 25 119/65 98 Mechanical Ventilator 35 99.6 08/10/17 08:00 50 08/10/17 08:00 80 18 116/59 100 Mechanical Ventilator 50 08/10/17 07:00 82 19 106/58 100 Mechanical Ventilator 50 08/10/17 06:57 81 23 50 08/10/17 06:00 98.6 82 19 123/63 100 Mechanical Ventilator 50 98.6 08/10/17 05:00 86 24 112/58 100 Mechanical Ventilator 50 08/10/17 04:58 88 24 50 08/10/17 04:00 84 08/10/17 04:00 98.8 89 26 124/67 100 Mechanical Ventilator 50 98.8 08/10/17 04:00 50 08/10/17 03:30 86 25 50 08/10/17 03:00 88 24 138/71 100 Mechanical Ventilator 50 08/10/17 02:00 88 23 142/70 100 Mechanical Ventilator 50 08/10/17 01:36 Mechanical Ventilator 50 08/10/17 01:30 99.1 84 20 133/73 Mechanical Ventilator 50.0 99.1 08/10/17 01:30 87 22 50 08/10/17 01:00 87 23 120/68 100 Mechanical Ventilator 50 08/10/17 00:00 83 19 142/75 100 Mechanical Ventilator 50 08/09/17 23:30 86 21 50 08/09/17 23:00 88 24 141/81 100 Mechanical Ventilator 50 08/09/17 22:00 98.8 91 20 133/75 Mechanical Ventilator 50 98.8 08/09/17 22:00 Mechanical Ventilator 50 08/09/17 21:03 91 22 50 08/09/17 21:00 88 21 140/88 100 Mechanical Ventilator 50 08/09/17 20:00 99.6 93 22 136/69 100 Mechanical Ventilator 50 99.6 08/09/17 20:00 50 08/09/17 20:00 85 08/09/17 19:30 94 20 50 08/09/17 19:00 88 21 138/68 100 Mechanical Ventilator 50 08/09/17 18:00 97 21 141/75 100 Mechanical Ventilator 50 08/09/17 17:00 99.2 84 21 135/79 100 Mechanical Ventilator 50 99.2 08/09/17 16:46 92 26 50 08/09/17 16:00 50 08/09/17 16:00 98 08/09/17 16:00 96 21 129/73 100 Mechanical Ventilator 50 08/09/17 15:00 93 24 123/70 100 Mechanical Ventilator 50 08/09/17 14:38 96 25 50 Intake and Output 08/09/17 08/10/17 19:00 07:00 Intake Total 1110 ml 480 ml Output Total 360 ml 3390 ml Balance 750 ml -2910 ml IV Total 630 ml Tube Feeding 480 ml 480 ml Output Urine Total 360 ml 390 ml Hemodialysis UF 3000 ml # Bowel Movements 1 Laboratory Tests Test 08/10/17 03:50 08/10/17 04:30 08/10/17 08:48 08/10/17 10:00 White Blood Count 14.6 K/UL (4.8-10.8) H Red Blood Count 3.56 M/UL (4.20-5.40) L Hemoglobin 8.1 G/DL (12.0-16.0) L Hematocrit 25.8 % (37.0-47.0) L Mean Corpuscular Volume 73 FL (80-99) L Mean Corpuscular Hemoglobin 22.9 PG (27.0-31.0) L Mean Corpuscular Hemoglobin Concent 31.5 G/DL (32.0-36.0) L Red Cell Distribution Width 18.7 % (11.6-14.8) H Platelet Count 264 K/UL (150-450) Mean Platelet Volume 5.6 FL (6.5-10.1) L Neutrophils (%) (Auto) 84.6 % (45.0-75.0) H Lymphocytes (%) (Auto) 9.0 % (20.0-45.0) L Monocytes (%) (Auto) 4.5 % (1.0-10.0) Eosinophils (%) (Auto) 1.3 % (0.0-3.0) Basophils (%) (Auto) 0.7 % (0.0-2.0) Prothrombin Time 9.2 SEC (9.30-11.50) L Prothromb Time International Ratio 0.9 (0.9-1.1) Activated Partial Thromboplast Time 30 SEC (23-33) Sodium Level 141 MMOL/L (136-145) Potassium Level 3.7 MMOL/L (3.5-5.1) Chloride Level 105 MMOL/L (98-107) Carbon Dioxide Level 29 MMOL/L (21-32) Anion Gap 7 mmol/L (5-15) Blood Urea Nitrogen 43 mg/dL (7-18) H Creatinine 4.2 MG/DL (0.55-1.30) H Estimat Glomerular Filtration Rate 11.3 mL/min (>60) Glucose Level 126 MG/DL (74-106) H Calcium Level 8.4 MG/DL (8.5-10.1) L Stool Occult Blood Negative (NEGATIVE) Arterial Blood pH 7.497 (7.350-7.450) 7.490 (7.350-7.450) Arterial Blood Partial Pressure CO2 34.9 mmHg (35.0-45.0) L 35.8 mmHg (35.0-45.0) Arterial Blood Partial Pressure O2 143.8 mmHg (75.0-100.0) H 99.0 mmHg (75.0-100.0) Arterial Blood HCO3 26.4 mmol/L (22.0-26.0) H 27.0 mmol/L (22.0-26.0) H Arterial Blood Oxygen Saturation 97.7 % (92.0-98.0) 97.0 % (92.0-98.0) Arterial Blood Base Excess 3.1 3.7 Ravi Test Positive Positive Height (Feet): 5 Height (Inches): 5.00 Weight (Pounds): 310 General Appearance: alert, morbidly obese Cardiovascular: regular rhythm Respiratory/Chest: other - intubated Abdominal Exam: other - TRET Ham Gonzalez NP August 10, 2017 14:38
--- NOTE | 2017-08-10 16:37 | Cardiac Electrophysiology PN ---
Assessment/Plan Assessment/Plan 1. S/P Septic shock due to diabetic ketoacidosis. On broad-spectrum IV antibiotic. Off pressors Echocardiogram showed EF 60%. Rule out for [place] 2. Diabetic ketoacidosis, on IV fluids and insulin. 3. S/P Cardiac arrest needing atropine. Due to respiratory failure. Now in SR 4. White count of 36,000, abdominal cellulitis, likely because of the patient's DKA. IV antibiotic per Dr. Colbert. 5. Morbid obesity. 6. Respiratory failure. re intubated. Weaning in progress. Plan Extubation tomorrow after HD tonight 7. ARF on HD now via Right IJ 8. Anemia hb 6.9. Transfused again 9. Severe hyponatremia, sodium 118, likely due to diabetic ketoacidosis. Resolved now 140s DW RN Subjective Subjective In ICU alert and off pressors on Vent. Awaiting HD today Objective Last 24 Hour Vital Signs Date Time Temp Pulse Resp B/P (MAP) Pulse Ox O2 Delivery O2 Flow Rate FiO2 08/10/17 15:02 89 23 35 08/10/17 12:50 85 25 35 08/10/17 12:00 35 08/10/17 11:30 90 23 35 08/10/17 09:00 90 23 35 08/10/17 09:00 35 08/10/17 09:00 99 08/10/17 09:00 99.6 91 25 119/65 98 Mechanical Ventilator 35 99.6 08/10/17 08:00 50 08/10/17 08:00 80 18 116/59 100 Mechanical Ventilator 50 08/10/17 07:00 82 19 106/58 100 Mechanical Ventilator 50 08/10/17 06:57 81 23 50 08/10/17 06:00 98.6 82 19 123/63 100 Mechanical Ventilator 50 98.6 08/10/17 05:00 86 24 112/58 100 Mechanical Ventilator 50 08/10/17 04:58 88 24 50 08/10/17 04:00 84 08/10/17 04:00 98.8 89 26 124/67 100 Mechanical Ventilator 50 98.8 08/10/17 04:00 50 08/10/17 03:30 86 25 50 08/10/17 03:00 88 24 138/71 100 Mechanical Ventilator 50 08/10/17 02:00 88 23 142/70 100 Mechanical Ventilator 50 08/10/17 01:36 Mechanical Ventilator 50 08/10/17 01:30 99.1 84 20 133/73 Mechanical Ventilator 50.0 99.1 08/10/17 01:30 87 22 50 08/10/17 01:00 87 23 120/68 100 Mechanical Ventilator 50 08/10/17 00:00 83 19 142/75 100 Mechanical Ventilator 50 08/09/17 23:30 86 21 50 08/09/17 23:00 88 24 141/81 100 Mechanical Ventilator 50 08/09/17 22:00 98.8 91 20 133/75 Mechanical Ventilator 50 98.8 08/09/17 22:00 Mechanical Ventilator 50 08/09/17 21:03 91 22 50 08/09/17 21:00 88 21 140/88 100 Mechanical Ventilator 50 08/09/17 20:00 99.6 93 22 136/69 100 Mechanical Ventilator 50 99.6 08/09/17 20:00 50 08/09/17 20:00 85 08/09/17 19:30 94 20 50 08/09/17 19:00 88 21 138/68 100 Mechanical Ventilator 50 08/09/17 18:00 97 21 141/75 100 Mechanical Ventilator 50 08/09/17 17:00 99.2 84 21 135/79 100 Mechanical Ventilator 50 99.2 08/09/17 16:46 92 26 50 Intake and Output 08/09/17 08/10/17 19:00 07:00 Intake Total 1110 ml 480 ml Output Total 360 ml 3390 ml Balance 750 ml -2910 ml IV Total 630 ml Tube Feeding 480 ml 480 ml Output Urine Total 360 ml 390 ml Hemodialysis UF 3000 ml # Bowel Movements 1 Laboratory Tests Test 08/10/17 03:50 08/10/17 04:30 08/10/17 08:48 08/10/17 10:00 White Blood Count 14.6 K/UL (4.8-10.8) H Red Blood Count 3.56 M/UL (4.20-5.40) L Hemoglobin 8.1 G/DL (12.0-16.0) L Hematocrit 25.8 % (37.0-47.0) L Mean Corpuscular Volume 73 FL (80-99) L Mean Corpuscular Hemoglobin 22.9 PG (27.0-31.0) L Mean Corpuscular Hemoglobin Concent 31.5 G/DL (32.0-36.0) L Red Cell Distribution Width 18.7 % (11.6-14.8) H Platelet Count 264 K/UL (150-450) Mean Platelet Volume 5.6 FL (6.5-10.1) L Neutrophils (%) (Auto) 84.6 % (45.0-75.0) H Lymphocytes (%) (Auto) 9.0 % (20.0-45.0) L Monocytes (%) (Auto) 4.5 % (1.0-10.0) Eosinophils (%) (Auto) 1.3 % (0.0-3.0) Basophils (%) (Auto) 0.7 % (0.0-2.0) Prothrombin Time 9.2 SEC (9.30-11.50) L Prothromb Time International Ratio 0.9 (0.9-1.1) Activated Partial Thromboplast Time 30 SEC (23-33) Sodium Level 141 MMOL/L (136-145) Potassium Level 3.7 MMOL/L (3.5-5.1) Chloride Level 105 MMOL/L (98-107) Carbon Dioxide Level 29 MMOL/L (21-32) Anion Gap 7 mmol/L (5-15) Blood Urea Nitrogen 43 mg/dL (7-18) H Creatinine 4.2 MG/DL (0.55-1.30) H Estimat Glomerular Filtration Rate 11.3 mL/min (>60) Glucose Level 126 MG/DL (74-106) H Calcium Level 8.4 MG/DL (8.5-10.1) L Stool Occult Blood Negative (NEGATIVE) Arterial Blood pH 7.497 (7.350-7.450) 7.490 (7.350-7.450) Arterial Blood Partial Pressure CO2 34.9 mmHg (35.0-45.0) L 35.8 mmHg (35.0-45.0) Arterial Blood Partial Pressure O2 143.8 mmHg (75.0-100.0) H 99.0 mmHg (75.0-100.0) Arterial Blood HCO3 26.4 mmol/L (22.0-26.0) H 27.0 mmol/L (22.0-26.0) H Arterial Blood Oxygen Saturation 97.7 % (92.0-98.0) 97.0 % (92.0-98.0) Arterial Blood Base Excess 3.1 3.7 Ravi Test Positive Positive Microbiology Date/Time Source Procedure Growth Status 08/08/17 10:20 Blood Blood Culture - Preliminary NO GROWTH AFTER 24 HOURS Resulted 08/08/17 07:00 Blood Blood Culture - Preliminary NO GROWTH AFTER 24 HOURS Resulted Objective HEAD AND NECK: No JVD, Orally intubated. Right IJ Manjinder catheter LUNGS: Coarse rhonchi. CARDIOVASCULAR: Regular S1 and S2 with no gallop. ABDOMEN: Cellulitis of the lower abdomen and erythema. EXTREMITIES: 1+ pitting edema.Adama Tracey MD August 10, 2017 16:37
--- NOTE | 2017-08-10 18:22 | General Progress Note ---
Progress Note Progress Note Surgery: non functional left femoral HD cath. was noted to be clotted recently after not being flushed with heparin properly after use. new IJ temp HD cath placed by radiology yesterday left femoral line removed. tip sent for culture. Rai Baker August 10, 2017 18:22
[2017-08-10] MEDS: Dyna-Hex 2% Top Sol 2oz TOPIC SCH (20:45)
[2017-08-10] MEDS ORDERED: NS 275ml ONE ×2 (22:16→22:31)
[2017-08-10] MEDS ORDERED: Tubing IV Secondary IV ONE (22:31)
[2017-08-11] VITALS (24 sets, daily range): BP systolic 92–137; BP diastolic 46–74
[2017-08-11] MEDS: Heparin 5000 units/ml inj SUBQ SCH ×3 (06:05→23:34)
[2017-08-11] MEDS: NovoLOG Insulin Flexpen SUBQ SCH ×4 (06:05→21:22)
[2017-08-11 06:20] LABS: HEMATOCRIT 23.3 % (37.0-47.0); HEMOGLOBIN 7.3 G/DL (12.0-16.0); MEAN CORPUSCULAR VOLUME 73 FL (80-99); PLATELET COUNT 271 K/UL (150-450); RED BLOOD COUNT 3.19 M/UL (4.20-5.40); RED CELL DISTRIBUTION WIDTH 18.7 % (11.6-14.8); WHITE BLOOD COUNT 9.4 K/UL (4.8-10.8)
--- NOTE | 2017-08-11 06:48 | General Progress Note ---
Assessment/Plan Problem List: (1) Cellulitis of abdominal wall ICD Codes: L03.311 - Cellulitis of abdominal wall SNOMED: 82794988 (2) Acute respiratory failure ICD Codes: J96.00 - Acute respiratory failure, unspecified whether with hypoxia or hypercapnia SNOMED: 11998362 (3) New onset type 1 diabetes mellitus, uncontrolled ICD Codes: E10.65 - Type 1 diabetes mellitus with hyperglycemia SNOMED: 616161585 (4) Necrotizing fasciitis ICD Codes: M72.6 - Necrotizing fasciitis SNOMED: 31922773 (5) DKA (diabetic ketoacidoses) ICD Codes: E13.10 - Other specified diabetes mellitus with ketoacidosis without coma SNOMED: 19870141, 322030691 Assessment/Plan continue Levemir 20 units bid continue NISS Subjective Allergies: Coded Allergies: PENICILLINS (Verified Allergy, Unknown, 07/30/17) According to mother, the patient is allergic to Penicillins Subjective events noted - Objective Last 24 Hour Vital Signs Date Time Temp Pulse Resp B/P (MAP) Pulse Ox O2 Delivery O2 Flow Rate FiO2 08/11/17 06:00 89 16 92/46 96 Mechanical Ventilator 35 08/11/17 05:16 91 21 35 08/11/17 05:00 93 16 94/48 96 Mechanical Ventilator 35 08/11/17 04:00 35 08/11/17 04:00 99.0 93 23 121/59 95 Mechanical Ventilator 35 99.0 08/11/17 03:00 92 23 125/61 96 Mechanical Ventilator 35 08/11/17 02:49 89 28 35 08/11/17 02:00 89 23 119/55 95 Mechanical Ventilator 35 08/11/17 01:30 109/55 08/11/17 01:24 85 23 35 08/11/17 01:00 90 23 109/55 94 Mechanical Ventilator 35 08/11/17 00:00 35 08/11/17 00:00 98.7 92 23 114/57 94 Mechanical Ventilator 35 98.7 08/10/17 23:19 82 22 35 08/10/17 23:00 90 23 112/57 96 Mechanical Ventilator 35 08/10/17 22:00 88 23 110/55 97 Mechanical Ventilator 35 08/10/17 21:00 87 22 90/67 97 Mechanical Ventilator 35 08/10/17 20:59 88 23 35 08/10/17 20:00 35 08/10/17 20:00 98.9 89 22 113/56 96 Mechanical Ventilator 35 98.9 08/10/17 19:27 86 26 35 08/10/17 19:00 Mechanical Ventilator 35 08/10/17 19:00 88 23 113/67 100 Mechanical Ventilator 35 08/10/17 19:00 98.9 24 24 131/66 Mechanical Ventilator 35 98.9 08/10/17 18:00 98.9 85 18 121/65 100 Mechanical Ventilator 35 98.9 08/10/17 17:00 80 18 116/59 100 Mechanical Ventilator 35 08/10/17 16:51 83 22 35 08/10/17 16:05 93 08/10/17 16:00 91 24 128/65 97 Mechanical Ventilator 35 08/10/17 16:00 98.9 98 24 123/68 Mechanical Ventilator 35 98.9 08/10/17 16:00 35 08/10/17 16:00 Mechanical Ventilator 35 08/10/17 15:02 89 23 35 08/10/17 15:00 87 22 125/64 100 Mechanical Ventilator 35 08/10/17 14:00 89 22 141/71 100 Mechanical Ventilator 35 08/10/17 13:00 91 25 119/67 98 Mechanical Ventilator 35 08/10/17 12:50 85 25 35 08/10/17 12:05 95 08/10/17 12:00 35 08/10/17 12:00 99.4 92 26 131/71 98 Mechanical Ventilator 35 99.4 08/10/17 11:30 90 23 35 08/10/17 11:00 90 28 109/53 98 Mechanical Ventilator 35 08/10/17 10:00 89 26 123/64 98 Mechanical Ventilator 35 08/10/17 09:00 90 23 35 08/10/17 09:00 35 08/10/17 09:00 99 08/10/17 09:00 99.6 91 25 119/65 98 Mechanical Ventilator 35 99.6 08/10/17 08:00 50 08/10/17 08:00 80 18 116/59 100 Mechanical Ventilator 50 08/10/17 07:51 82 08/10/17 07:00 82 19 106/58 100 Mechanical Ventilator 50 08/10/17 06:57 81 23 50 Intake and Output 08/10/17 08/11/17 19:00 07:00 Intake Total 990 ml 950 ml Output Total 2430 ml 400 ml Balance -1440 ml 550 ml Free Water 100 ml 100 ml IV Total 410 ml 410 ml Tube Feeding 480 ml 440 ml Output Urine Total 430 ml 400 ml Hemodialysis UF 2000 ml # Bowel Movements 2 Laboratory Tests 08/10/17 08:48: Arterial Blood pH 7.497H, Arterial Blood Partial Pressure CO2 34.9L, Arterial Blood Partial Pressure O2 143.8H, Arterial Blood HCO3 26.4H, Arterial Blood Oxygen Saturation 97.7, Arterial Blood Base Excess 3.1, Ravi Test Positive 08/10/17 10:00: Arterial Blood pH 7.490H, Arterial Blood Partial Pressure CO2 35.8, Arterial Blood Partial Pressure O2 99.0, Arterial Blood HCO3 27.0H, Arterial Blood Oxygen Saturation 97.0, Arterial Blood Base Excess 3.7, Ravi Test Positive 08/11/17 06:00: White Blood Count 9.4, Red Blood Count 3.19L, Hemoglobin 7.3L, Hematocrit 23.3L , Mean Corpuscular Volume 73L, Mean Corpuscular Hemoglobin 23.0L, Mean Corpuscular Hemoglobin Concent 31.5L, Red Cell Distribution Width 18.7H, Platelet Count 271, Mean Platelet Volume 5.7L, Neutrophils (%) (Auto) , Lymphocytes (%) (Auto) , Monocytes (%) (Auto) , Eosinophils (%) (Auto) , Basophils (%) (Auto) , Neutrophils % (Manual) [Pending], Lymphocytes % (Manual) [Pending], Platelet Estimate [Pending], Platelet Morphology [Pending], Sodium Level [Pending], Potassium Level [Pending], Chloride Level [Pending], Carbon Dioxide Level [Pending], Blood Urea Nitrogen [Pending], Creatinine [Pending], Estimat Glomerular Filtration Rate [Pending], Glucose Level [Pending], Calcium Level [Pending] Height (Feet): 5 Height (Inches): 5.00 Weight (Pounds): 321 General Appearance: moderate distress Neck: normal alignment Cardiovascular: normal rate Respiratory/Chest: decreased breath sounds Abdomen: normal bowel sounds Pelvis: normal external exam Edema: 1+ Arm (L), 1+ Arm (R), 1+ Leg (L), 1+ Leg (R), 1+ Pedal (L), 1+ Pedal ( R), 1+ Generalized Objective Current Medications Medications (Trade) Dose Ordered Sig/Tommy Route PRN Reason Start Time Stop Time Status Last Admin Dose Admin Acetaminophen (Tylenol) 650 mg EVERY 6 HOURS PRN RECTAL Prn pain/Temp > 100.5 08/08/17 06:00 09/05/17 19:57 Acetaminophen (Tylenol) 650 mg Q4H PRN NG Mild Pain/Temp > 100.5 08/08/17 21:00 09/07/17 20:59 08/09/17 07:10 Chlorhexidine Gluconate (Idalia-Hex 2%) 1 applic DAILY@2000 TOPIC 08/09/17 20:00 09/08/17 19:59 08/10/17 20:45 Clotrimazole (Lotrimin) 1 applic NEEDED TOPIC 08/08/17 05:30 09/07/17 05:29 Dextrose (Dextrose 50%) 25 ml STAT PRN IV Hypoglycemia 08/08/17 20:00 09/05/17 19:57 Dextrose (Dextrose 50%) 50 ml STAT PRN IV Hypoglycemia 08/08/17 20:00 09/05/17 19:57 Heparin Sodium (Porcine) (Heparin 5000 units/ml) 5,000 units Q8H SUBQ 08/08/17 07:00 09/05/17 14:59 08/11/17 06:05 Insulin Aspart (NovoLOG) Resistance sliding sc... BEFORE MEALS AND HS SUBQ 08/08/17 06:30 09/02/17 16:29 08/10/17 16:57 Insulin Detemir (Levemir) 20 units Q12HR SUBQ 08/08/17 09:00 09/06/17 08:59 08/10/17 20:46 Linezolid 300 ml @ 300 mls/hr Q12HR IVPB 08/08/17 09:00 08/14/17 08:59 08/10/17 20:44 Lorazepam (Ativan 2mg/ml 1ml) 2 mg Q4H PRN IV For Anxiety 08/08/17 01:00 08/12/17 20:59 08/08/17 23:30 Meropenem 500 mg/ Sodium Chloride 110 ml @ 220 mls/hr Q12HR IVPB 08/08/17 09:00 08/15/17 23:00 08/10/17 20:43 Norepinephrine Bitartrate 4 mg/ Dextrose 250 ml @ 0 mls/hr Q24H IV 08/08/17 01:30 09/07/17 01:29 08/08/17 01:41 Pantoprazole (Protonix) 40 mg BID IVP 08/09/17 18:00 09/06/17 08:59 08/10/17 17:55 Silver Sulfadiazine (Silvadene Cream 25gm) 1 applic DAILY TOPIC 08/08/17 09:00 08/31/17 10:29 08/10/17 09:04 Item Value Date Time Bedside Blood Glucose 108 mg/dl 08/11/17 0630 Bedside Blood Glucose 108 mg/dl 08/10/17 2100 Bedside Blood Glucose 112 mg/dl 08/10/17 1657 Bedside Blood Glucose 161 mg/dl H 08/10/17 1137 Bedside Blood Glucose 138 mg/dl H 08/10/17 0905 Bedside Blood Glucose 120 mg/dl 08/10/17 0631 SAQIB TOM August 11, 2017 06:47
[2017-08-11 07:03] LABS: ANION GAP 8 mmol/L (5-15); BLOOD UREA NITROGEN 39 mg/dL (7-18); CALCIUM 8.1 MG/DL (8.5-10.1); CARBON DIOXIDE 29 MMOL/L (21-32); CHLORIDE 105 MMOL/L (98-107); CREATININE 3.9 MG/DL (0.55-1.30); SODIUM 142 MMOL/L (136-145)
--- NOTE | 2017-08-11 07:57 | Nephrology Progress Note ---
Assessment/Plan Assessment/Plan 1. SCARLET- ATN non resolving. Hold HD today - multifact ATN (sepsis induced inflammotory cytokine prox tub damage/ ishchemic ATN hypotension/vol dep) - plan for HD in am 2. DKA/Met Acidosis - resolved 3. Septic Shock- etiology likely from abd cellulitis. Abx mgmt per ID. - Gen Surg mgmt of abdomen paniculitis. - WBC and BP much improved 4. Hypotension- resolved now off pressors. 5. Resp FL- extubate today 6. Hypok+/Ca/Phos- replace prn 7. Anemia- When stable GI anticipates procedure. PRN Bld tx Subjective Date patient seen: August 11, 2017 Time patient seen: 07:55 ROS Limited/Unobtainable: No Allergies: Coded Allergies: PENICILLINS (Verified Allergy, Unknown, 07/30/17) According to mother, the patient is allergic to Penicillins All Systems: reviewed and negative except above Subjective Patient intubated but wide awake Objective Last 24 Hour Vital Signs Date Time Temp Pulse Resp B/P (MAP) Pulse Ox O2 Delivery O2 Flow Rate FiO2 08/11/17 07:16 91 23 35 08/11/17 06:00 89 16 92/46 96 Mechanical Ventilator 35 08/11/17 05:16 91 21 35 08/11/17 05:00 93 16 94/48 96 Mechanical Ventilator 35 08/11/17 04:00 92 08/11/17 04:00 35 08/11/17 04:00 99.0 93 23 121/59 95 Mechanical Ventilator 35 99.0 08/11/17 03:00 92 23 125/61 96 Mechanical Ventilator 35 08/11/17 02:49 89 28 35 08/11/17 02:00 89 23 119/55 95 Mechanical Ventilator 35 08/11/17 01:30 109/55 08/11/17 01:24 85 23 35 08/11/17 01:00 90 23 109/55 94 Mechanical Ventilator 35 08/11/17 00:00 94 08/11/17 00:00 35 08/11/17 00:00 98.7 92 23 114/57 94 Mechanical Ventilator 35 98.7 08/10/17 23:19 82 22 35 08/10/17 23:00 90 23 112/57 96 Mechanical Ventilator 35 08/10/17 22:00 88 23 110/55 97 Mechanical Ventilator 35 08/10/17 21:00 87 22 90/67 97 Mechanical Ventilator 35 08/10/17 20:59 88 23 35 08/10/17 20:00 35 08/10/17 20:00 87 08/10/17 20:00 98.9 89 22 113/56 96 Mechanical Ventilator 35 98.9 08/10/17 19:27 86 26 35 08/10/17 19:00 Mechanical Ventilator 35 08/10/17 19:00 88 23 113/67 100 Mechanical Ventilator 35 08/10/17 19:00 98.9 24 24 131/66 Mechanical Ventilator 35 98.9 08/10/17 18:00 98.9 85 18 121/65 100 Mechanical Ventilator 35 98.9 08/10/17 17:00 80 18 116/59 100 Mechanical Ventilator 35 08/10/17 16:51 83 22 35 08/10/17 16:05 93 08/10/17 16:00 91 24 128/65 97 Mechanical Ventilator 35 08/10/17 16:00 98.9 98 24 123/68 Mechanical Ventilator 35 98.9 08/10/17 16:00 35 08/10/17 16:00 Mechanical Ventilator 35 08/10/17 15:02 89 23 35 08/10/17 15:00 87 22 125/64 100 Mechanical Ventilator 35 08/10/17 14:00 89 22 141/71 100 Mechanical Ventilator 35 08/10/17 13:00 91 25 119/67 98 Mechanical Ventilator 35 08/10/17 12:50 85 25 35 08/10/17 12:05 95 08/10/17 12:00 35 08/10/17 12:00 99.4 92 26 131/71 98 Mechanical Ventilator 35 99.4 08/10/17 11:30 90 23 35 08/10/17 11:00 90 28 109/53 98 Mechanical Ventilator 35 08/10/17 10:00 89 26 123/64 98 Mechanical Ventilator 35 08/10/17 09:00 90 23 35 08/10/17 09:00 35 08/10/17 09:00 99 08/10/17 09:00 99.6 91 25 119/65 98 Mechanical Ventilator 35 99.6 08/10/17 08:00 50 08/10/17 08:00 80 18 116/59 100 Mechanical Ventilator 50 Intake and Output 08/10/17 08/11/17 19:00 07:00 Intake Total 990 ml 990 ml Output Total 2430 ml 450 ml Balance -1440 ml 540 ml Free Water 100 ml 100 ml IV Total 410 ml 410 ml Tube Feeding 480 ml 480 ml Output Urine Total 430 ml 450 ml Hemodialysis UF 2000 ml # Bowel Movements 2 Laboratory Tests 08/10/17 08:48: Arterial Blood pH 7.497H, Arterial Blood Partial Pressure CO2 34.9L, Arterial Blood Partial Pressure O2 143.8H, Arterial Blood HCO3 26.4H, Arterial Blood Oxygen Saturation 97.7, Arterial Blood Base Excess 3.1, Ravi Test Positive 08/10/17 10:00: Arterial Blood pH 7.490H, Arterial Blood Partial Pressure CO2 35.8, Arterial Blood Partial Pressure O2 99.0, Arterial Blood HCO3 27.0H, Arterial Blood Oxygen Saturation 97.0, Arterial Blood Base Excess 3.7, Ravi Test Positive 08/11/17 06:00: White Blood Count 9.4, Red Blood Count 3.19L, Hemoglobin 7.3L, Hematocrit 23.3L , Mean Corpuscular Volume 73L, Mean Corpuscular Hemoglobin 23.0L, Mean Corpuscular Hemoglobin Concent 31.5L, Red Cell Distribution Width 18.7H, Platelet Count 271, Mean Platelet Volume 5.7L, Neutrophils (%) (Auto) , Lymphocytes (%) (Auto) , Monocytes (%) (Auto) , Eosinophils (%) (Auto) , Basophils (%) (Auto) , Neutrophils % (Manual) [Pending], Lymphocytes % (Manual) [Pending], Platelet Estimate [Pending], Platelet Morphology [Pending], Sodium Level 142, Potassium Level 4.0, Chloride Level 105, Carbon Dioxide Level 29, Anion Gap 8, Blood Urea Nitrogen 39H, Creatinine 3.9H, Estimat Glomerular Filtration Rate 12.3, Glucose Level 127H, Calcium Level 8.1L Height (Feet): 5 Height (Inches): 5.00 Weight (Pounds): 321 General Appearance: WD/WN, no apparent distress EENT: PERRL/EOMI, normal ENT inspection Neck: normal alignment, supple Cardiovascular: normal rate, regular rhythm Respiratory/Chest: lungs clear, normal breath sounds Abdomen: non tender, soft Edema: 1+ Arm (L), 1+ Arm (R), 1+ Leg (L), 1+ Leg (R), 1+ Pedal (L), 1+ Pedal ( R), 1+ Generalized Carlton Guzmán M.D. August 11, 2017 07:57
[2017-08-11] MEDS: Meropenem 500 MG in NS 110 ML IVPB SCH ×2 (09:15→20:50)
[2017-08-11] MEDS: Pantoprazole Inj IVP SCH ×2 (09:15→18:13)
[2017-08-11] MEDS: Levemir Flexpen SUBQ SCH ×2 (09:19→21:20)
[2017-08-11 09:20] LABS: HEMOGLOBIN 7.9 G/DL (12.0-16.0); MEAN CORPUSCULAR VOLUME 73 FL (80-99); PLATELET COUNT 294 K/UL (150-450); RED BLOOD COUNT 3.55 M/UL (4.20-5.40); RED CELL DISTRIBUTION WIDTH 18.6 % (11.6-14.8); WHITE BLOOD COUNT 10.4 K/UL (4.8-10.8)
--- NOTE | 2017-08-11 11:55 | GI Progress Note ---
Assessment/Plan Problems: (1) Anemia ICD Codes: D64.9 - Anemia, unspecified SNOMED: 833177259 (2) Diabetes mellitus ICD Codes: E11.9 - Type 2 diabetes mellitus without complications SNOMED: 38665414 Status: progressing Status Narrative Discussed with Dr. Hernandez. Assessment/Plan Assessment - Sepsis, improved - resp failure, resolved - DKA - abd wall cellulitis - obesity - Renal failure - Anemia >> OB (+)(-) - extubated today - ST evaluation reviewed Recommendations - FLD, adv as tolerated - ppi BID - elevated HOB - abx - follow labs and exam - check additional OB - transfuse PRN - fu labs Subjective Subjective limited Objective Last 24 Hour Vital Signs Date Time Temp Pulse Resp B/P (MAP) Pulse Ox O2 Delivery O2 Flow Rate FiO2 08/11/17 10:37 92 Nasal Cannula 4.0 36 08/11/17 10:37 Nasal Cannula 4.0 36 08/11/17 10:16 97 16 08/11/17 10:15 Nasal Cannula 4.0 36 08/11/17 09:15 94 25 35 08/11/17 08:12 95 23 35 08/11/17 08:11 99 08/11/17 08:10 35 08/11/17 07:16 91 23 35 08/11/17 06:00 89 16 92/46 96 Mechanical Ventilator 35 08/11/17 05:16 91 21 35 08/11/17 05:00 93 16 94/48 96 Mechanical Ventilator 35 08/11/17 04:00 92 08/11/17 04:00 35 08/11/17 04:00 99.0 93 23 121/59 95 Mechanical Ventilator 35 99.0 08/11/17 03:00 92 23 125/61 96 Mechanical Ventilator 35 08/11/17 02:49 89 28 35 08/11/17 02:00 89 23 119/55 95 Mechanical Ventilator 35 08/11/17 01:30 109/55 08/11/17 01:24 85 23 35 08/11/17 01:00 90 23 109/55 94 Mechanical Ventilator 35 08/11/17 00:00 94 08/11/17 00:00 35 08/11/17 00:00 98.7 92 23 114/57 94 Mechanical Ventilator 35 98.7 08/10/17 23:19 82 22 35 08/10/17 23:00 90 23 112/57 96 Mechanical Ventilator 35 08/10/17 22:00 88 23 110/55 97 Mechanical Ventilator 35 08/10/17 21:00 87 22 90/67 97 Mechanical Ventilator 35 08/10/17 20:59 88 23 35 08/10/17 20:00 35 08/10/17 20:00 87 08/10/17 20:00 98.9 89 22 113/56 96 Mechanical Ventilator 35 98.9 08/10/17 19:27 86 26 35 08/10/17 19:00 Mechanical Ventilator 35 08/10/17 19:00 88 23 113/67 100 Mechanical Ventilator 35 08/10/17 19:00 98.9 24 24 131/66 Mechanical Ventilator 35 98.9 08/10/17 18:00 98.9 85 18 121/65 100 Mechanical Ventilator 35 98.9 08/10/17 17:00 80 18 116/59 100 Mechanical Ventilator 35 08/10/17 16:51 83 22 35 08/10/17 16:05 93 08/10/17 16:00 91 24 128/65 97 Mechanical Ventilator 35 08/10/17 16:00 98.9 98 24 123/68 Mechanical Ventilator 35 98.9 08/10/17 16:00 35 08/10/17 16:00 Mechanical Ventilator 35 08/10/17 15:02 89 23 35 08/10/17 15:00 87 22 125/64 100 Mechanical Ventilator 35 08/10/17 14:00 89 22 141/71 100 Mechanical Ventilator 35 08/10/17 13:00 91 25 119/67 98 Mechanical Ventilator 35 08/10/17 12:50 85 25 35 08/10/17 12:05 95 08/10/17 12:00 35 08/10/17 12:00 99.4 92 26 131/71 98 Mechanical Ventilator 35 99.4 Intake and Output 08/10/17 08/11/17 19:00 07:00 Intake Total 990 ml 990 ml Output Total 2430 ml 450 ml Balance -1440 ml 540 ml Free Water 100 ml 100 ml IV Total 410 ml 410 ml Tube Feeding 480 ml 480 ml Output Urine Total 430 ml 450 ml Hemodialysis UF 2000 ml # Bowel Movements 2 Laboratory Tests Test 08/11/17 06:00 08/11/17 07:55 08/11/17 08:15 08/11/17 09:20 White Blood Count 9.4 K/UL (4.8-10.8) 10.4 K/UL (4.8-10.8) Red Blood Count 3.19 M/UL (4.20-5.40) L 3.55 M/UL (4.20-5.40) L Hemoglobin 7.3 G/DL (12.0-16.0) L 7.9 G/DL (12.0-16.0) L Hematocrit 23.3 % (37.0-47.0) L 26.0 % (37.0-47.0) L Mean Corpuscular Volume 73 FL (80-99) L 73 FL (80-99) L Mean Corpuscular Hemoglobin 23.0 PG (27.0-31.0) L 22.2 PG (27.0-31.0) L Mean Corpuscular Hemoglobin Concent 31.5 G/DL (32.0-36.0) L 30.4 G/DL (32.0-36.0) L Red Cell Distribution Width 18.7 % (11.6-14.8) H 18.6 % (11.6-14.8) H Platelet Count 271 K/UL (150-450) 294 K/UL (150-450) Mean Platelet Volume 5.7 FL (6.5-10.1) L 5.8 FL (6.5-10.1) L Neutrophils (%) (Auto) % (45.0-75.0) % (45.0-75.0) Lymphocytes (%) (Auto) % (20.0-45.0) % (20.0-45.0) Monocytes (%) (Auto) % (1.0-10.0) % (1.0-10.0) Eosinophils (%) (Auto) % (0.0-3.0) % (0.0-3.0) Basophils (%) (Auto) % (0.0-2.0) % (0.0-2.0) Differential Total Cells Counted 100 100 Neutrophils % (Manual) 79 % (45-75) H 84 % (45-75) H Lymphocytes % (Manual) 16 % (20-45) L 11 % (20-45) L Monocytes % (Manual) 4 % (1-10) 3 % (1-10) Eosinophils % (Manual) 1 % (0-3) 1 % (0-3) Basophils % (Manual) 0 % (0-2) 1 % (0-2) Band Neutrophils 0 % (0-8) 0 % (0-8) Platelet Estimate Adequate Adequate Platelet Morphology Normal Normal Hypochromasia 3+ 3+ Anisocytosis 2+ 2+ Microcytosis 2+ 2+ Sodium Level 142 MMOL/L (136-145) Potassium Level 4.0 MMOL/L (3.5-5.1) Chloride Level 105 MMOL/L (98-107) Carbon Dioxide Level 29 MMOL/L (21-32) Anion Gap 8 mmol/L (5-15) Blood Urea Nitrogen 39 mg/dL (7-18) H Creatinine 3.9 MG/DL (0.55-1.30) H Estimat Glomerular Filtration Rate 12.3 mL/min (>60) Glucose Level 127 MG/DL (74-106) H Calcium Level 8.1 MG/DL (8.5-10.1) L Arterial Blood pH 7.524 (7.350-7.450) 7.527 (7.350-7.450) Arterial Blood Partial Pressure CO2 39.4 mmHg (35.0-45.0) 37.3 mmHg (35.0-45.0) Arterial Blood Partial Pressure O2 79.0 mmHg (75.0-100.0) 82.1 mmHg (75.0-100.0) Arterial Blood HCO3 31.7 mmol/L (22.0-26.0) H 30.3 mmol/L (22.0-26.0) H Arterial Blood Oxygen Saturation 95.0 % (92.0-98.0) 95.2 % (92.0-98.0) Arterial Blood Base Excess 8.3 7.0 Ravi Test Positive Positive Height (Feet): 5 Height (Inches): 5.00 Weight (Pounds): 321 General Appearance: WD/WN, no apparent distress, alert, morbidly obese Cardiovascular: normal rate Respiratory/Chest: normal breath sounds, no respiratory distress Abdominal Exam: normal bowel sounds, non tender, soft Extremities: normal range of motion, non-tender Ham Gonzalez [employer] August 11, 2017 11:55
--- NOTE | 2017-08-11 12:51 | Diagnostic Imaging Report ---
APPROVED REPORT CPT Code: 69923 Present Symptoms Shortness of breath Comments: Sore Hx of line (right groin area) BILATERAL: Imaging reveals a patent deep venous system bilaterally. There is no evidence of thrombus within the left common femoral, popliteal or tibial segments. The left greater saphenous vein is also within normal limits. Doppler indicates normal spontaneous flow within these segments. Note: The right common femoral, superficial femoral and right greater saphenous veins not imaged, due to bandages and line.
--- NOTE | 2017-08-11 14:04 | General Surgery Progress Note ---
General Surgery-Progress Note Subjective Symptoms: improved Objective Last 24 Hour Vital Signs Date Time Temp Pulse Resp B/P (MAP) Pulse Ox O2 Delivery O2 Flow Rate FiO2 08/11/17 13:00 94 28 113/54 93 Mechanical Ventilator 4.0 08/11/17 12:00 35 08/11/17 12:00 97 28 116/63 97 Mechanical Ventilator 4.0 08/11/17 11:00 96 29 94/66 94 Mechanical Ventilator 4.0 08/11/17 10:37 92 Nasal Cannula 4.0 36 08/11/17 10:37 Nasal Cannula 4.0 36 08/11/17 10:16 97 16 08/11/17 10:15 Nasal Cannula 4.0 36 08/11/17 10:10 4.0 08/11/17 10:00 95 11 115/54 92 Mechanical Ventilator 35 08/11/17 09:15 94 25 35 08/11/17 09:00 94 15 118/57 94 Mechanical Ventilator 35 08/11/17 08:12 95 23 35 08/11/17 08:11 99 08/11/17 08:10 35 08/11/17 08:00 98.9 93 14 114/56 94 Mechanical Ventilator 35 98.9 08/11/17 07:16 91 23 35 08/11/17 07:00 90 11 120/65 96 Mechanical Ventilator 35 08/11/17 06:00 89 16 92/46 96 Mechanical Ventilator 35 08/11/17 05:16 91 21 35 08/11/17 05:00 93 16 94/48 96 Mechanical Ventilator 35 08/11/17 04:00 92 08/11/17 04:00 35 08/11/17 04:00 99.0 93 23 121/59 95 Mechanical Ventilator 35 99.0 08/11/17 03:00 92 23 125/61 96 Mechanical Ventilator 35 08/11/17 02:49 89 28 35 08/11/17 02:00 89 23 119/55 95 Mechanical Ventilator 35 18 01:30 109/55 08/11/17 01:24 85 23 35 08/11/17 01:00 90 23 109/55 94 Mechanical Ventilator 35 08/11/18 00:00 94 08/11/17 00:00 35 08/11/17 00:00 98.7 92 23 114/57 94 Mechanical Ventilator 35 98.7 08/10/17 23:19 82 22 35 08/10/17 23:00 90 23 112/57 96 Mechanical Ventilator 35 08/10/17 22:00 88 23 110/55 97 Mechanical Ventilator 35 08/10/17 21:00 87 22 90/67 97 Mechanical Ventilator 35 08/10/17 20:59 88 23 35 08/10/17 20:00 35 08/10/17 20:00 87 08/10/17 20:00 98.9 89 22 113/56 96 Mechanical Ventilator 35 98.9 08/10/17 19:27 86 26 35 08/10/17 19:00 Mechanical Ventilator 35 08/10/17 19:00 88 23 113/67 100 Mechanical Ventilator 35 08/10/17 19:00 98.9 24 24 131/66 Mechanical Ventilator 35 98.9 08/10/17 18:00 98.9 85 18 121/65 100 Mechanical Ventilator 35 98.9 08/10/17 17:00 80 18 116/59 100 Mechanical Ventilator 35 08/10/17 16:51 83 22 35 08/10/17 16:05 93 08/10/17 16:00 91 24 128/65 97 Mechanical Ventilator 35 08/10/17 16:00 98.9 98 24 123/68 Mechanical Ventilator 35 98.9 08/10/17 16:00 35 08/10/17 16:00 Mechanical Ventilator 35 08/10/17 15:02 89 23 35 08/10/17 15:00 87 22 125/64 100 Mechanical Ventilator 35 I&O Intake and Output 08/10/17 08/11/17 19:00 07:00 Intake Total 990 ml 990 ml Output Total 2430 ml 450 ml Balance -1440 ml 540 ml Free Water 100 ml 100 ml IV Total 410 ml 410 ml Tube Feeding 480 ml 480 ml Output Urine Total 430 ml 450 ml Hemodialysis UF 2000 ml # Bowel Movements 2 Respiratory: clear Abdomen: other - obese soft erythema has almost resolved Extremities: no tenderness Laboratory Tests Test 08/11/17 06:00 08/11/17 07:55 08/11/17 08:15 08/11/17 09:20 White Blood Count 9.4 K/UL (4.8-10.8) 10.4 K/UL (4.8-10.8) Red Blood Count 3.19 M/UL (4.20-5.40) L 3.55 M/UL (4.20-5.40) L Hemoglobin 7.3 G/DL (12.0-16.0) L 7.9 G/DL (12.0-16.0) L Hematocrit 23.3 % (37.0-47.0) L 26.0 % (37.0-47.0) L Mean Corpuscular Volume 73 FL (80-99) L 73 FL (80-99) L Mean Corpuscular Hemoglobin 23.0 PG (27.0-31.0) L 22.2 PG (27.0-31.0) L Mean Corpuscular Hemoglobin Concent 31.5 G/DL (32.0-36.0) L 30.4 G/DL (32.0-36.0) L Red Cell Distribution Width 18.7 % (11.6-14.8) H 18.6 % (11.6-14.8) H Platelet Count 271 K/UL (150-450) 294 K/UL (150-450) Mean Platelet Volume 5.7 FL (6.5-10.1) L 5.8 FL (6.5-10.1) L Neutrophils (%) (Auto) % (45.0-75.0) % (45.0-75.0) Lymphocytes (%) (Auto) % (20.0-45.0) % (20.0-45.0) Monocytes (%) (Auto) % (1.0-10.0) % (1.0-10.0) Eosinophils (%) (Auto) % (0.0-3.0) % (0.0-3.0) Basophils (%) (Auto) % (0.0-2.0) % (0.0-2.0) Differential Total Cells Counted 100 100 Neutrophils % (Manual) 79 % (45-75) H 84 % (45-75) H Lymphocytes % (Manual) 16 % (20-45) L 11 % (20-45) L Monocytes % (Manual) 4 % (1-10) 3 % (1-10) Eosinophils % (Manual) 1 % (0-3) 1 % (0-3) Basophils % (Manual) 0 % (0-2) 1 % (0-2) Band Neutrophils 0 % (0-8) 0 % (0-8) Platelet Estimate Adequate Adequate Platelet Morphology Normal Normal Hypochromasia 3+ 3+ Anisocytosis 2+ 2+ Microcytosis 2+ 2+ Sodium Level 142 MMOL/L (136-145) Potassium Level 4.0 MMOL/L (3.5-5.1) Chloride Level 105 MMOL/L (98-107) Carbon Dioxide Level 29 MMOL/L (21-32) Anion Gap 8 mmol/L (5-15) Blood Urea Nitrogen 39 mg/dL (7-18) H Creatinine 3.9 MG/DL (0.55-1.30) H Estimat Glomerular Filtration Rate 12.3 mL/min (>60) Glucose Level 127 MG/DL (74-106) H Calcium Level 8.1 MG/DL (8.5-10.1) L Arterial Blood pH 7.524 (7.350-7.450) 7.527 (7.350-7.450) Arterial Blood Partial Pressure CO2 39.4 mmHg (35.0-45.0) 37.3 mmHg (35.0-45.0) Arterial Blood Partial Pressure O2 79.0 mmHg (75.0-100.0) 82.1 mmHg (75.0-100.0) Arterial Blood HCO3 31.7 mmol/L (22.0-26.0) H 30.3 mmol/L (22.0-26.0) H Arterial Blood Oxygen Saturation 95.0 % (92.0-98.0) 95.2 % (92.0-98.0) Arterial Blood Base Excess 8.3 7.0 Ravi Test Positive Positive Assessment Post-op Diagnosis cellulitis of abdominal wall respiratory failure R/O line sepsis Plan Additional Comments per pcp Jorge L Longoria MD August 11, 2017 14:04
--- NOTE | 2017-08-11 14:24 | Infectious Diseases Prog Note ---
Assessment/Plan Problems: (1) Cellulitis of abdominal wall Assessment & Plan: complicated with panniculitis, now improving since her lymphedema in the abdominal skin and fluids retention are improving too with HD , mildly tender in the left lower abdomen , continue aggressive HD to improve her lymphedema and cellulitis , will continue meropenem and zyvox empiric coverage for now , surgery has been following , repeated blood culture is negative so far . she has slow recovery due to significant lymphedema and fluids overload. recommend to remove the left femoral HD catheter (2) UTI (urinary tract infection) Assessment & Plan: culture grew strep agalactiae and staph aureus , she is already on meropenem and zyvox (3) Septic shock Assessment & Plan: due to the above , off pressor now , blood culture was negative , has improvement in her leukocytosis, left femoral HD catheter was pulled out , await repeated blood culture , continue meropenem and zyvox , monitor WBC (4) Respiratory failure requiring intubation Assessment & Plan: with fluids over load and pleural effusion, extubated today , continue HD to remove more fluids as tolerated , monitor CXR and ABG (5) SCARLET (acute kidney injury) Assessment & Plan: with no significant improvement , required HD , due to the above, has mild improvement in her urine output, nephrology is following, monitor UOP (6) DKA (diabetic ketoacidoses) Assessment & Plan: due to poorly controlled diabetes and sepsis, S/P insulin drip in the ICU , continue close monitor of her blood glucose to keep between 80 -120 (7) Leg wound, left Assessment & Plan: with infection due to staph aureus and klebsiella oxytoca, already on meropenem and zyvox , continue local wound care as per hospital protocol , bone scan to rule out underlying osteomyelitis is pending Subjective Constitutional: Reports: no symptoms HEENT: Reports: no symptoms Respiratory: Reports: dry cough Breasts: Reports: no symptoms Cardiovascular: Reports: no symptoms Gastrointestinal/Abdominal: Reports: diarrhea Genitourinary: Reports: no symptoms Neurologic: Reports: weakness Psychiatric: Reports: no symptoms Skin: Reports: ulcer Endocrine: Reports: no symptoms Hematologic: Reports: no symptoms Musculoskeletal: Reports: swelling Allergies: Coded Allergies: PENICILLINS (Verified Allergy, Unknown, 07/30/17) According to mother, the patient is allergic to Penicillins Subjective she is still intubated on mechanical ventilation, awake and responsive. denied any pain , no fever today with less lymphedema in her lower abdomen skin and less redness. had mild left groin lymphadenopathy , small skin breaks drying out at the folds site . left femoral HD catheter is clotted Objective Vital Signs Last 24 Hour Vital Signs Date Time Temp Pulse Resp B/P (MAP) Pulse Ox O2 Delivery O2 Flow Rate FiO2 08/11/17 13:00 94 28 113/54 93 Mechanical Ventilator 4.0 08/11/17 12:00 35 08/11/17 12:00 97 28 116/63 97 Mechanical Ventilator 4.0 08/11/17 11:00 96 29 94/66 94 Mechanical Ventilator 4.0 08/11/17 10:37 92 Nasal Cannula 4.0 36 08/11/17 10:37 Nasal Cannula 4.0 36 08/11/17 10:16 97 16 08/11/17 10:15 Nasal Cannula 4.0 36 08/11/17 10:10 4.0 08/11/17 10:00 95 11 115/54 92 Mechanical Ventilator 35 08/11/17 09:15 94 25 35 08/11/17 09:00 94 15 118/57 94 Mechanical Ventilator 35 08/11/17 08:12 95 23 35 08/11/17 08:11 99 08/11/17 08:10 35 08/11/17 08:00 98.9 93 14 114/56 94 Mechanical Ventilator 35 98.9 08/11/17 07:16 91 23 35 08/11/17 07:00 90 11 120/65 96 Mechanical Ventilator 35 08/11/17 06:00 89 16 92/46 96 Mechanical Ventilator 35 08/11/17 05:16 91 21 35 08/11/17 05:00 93 16 94/48 96 Mechanical Ventilator 35 08/11/17 04:00 92 08/11/17 04:00 35 08/11/17 04:00 99.0 93 23 121/59 95 Mechanical Ventilator 35 99.0 08/11/17 03:00 92 23 125/61 96 Mechanical Ventilator 35 08/11/17 02:49 89 28 35 08/11/17 02:00 89 23 119/55 95 Mechanical Ventilator 35 08/11/17 01:30 109/55 08/11/17 01:24 85 23 35 08/11/17 01:00 90 23 109/55 94 Mechanical Ventilator 35 08/11/17 00:00 94 08/11/17 00:00 35 08/11/17 00:00 98.7 92 23 114/57 94 Mechanical Ventilator 35 98.7 08/10/17 23:19 82 22 35 08/10/17 23:00 90 23 112/57 96 Mechanical Ventilator 35 08/10/17 22:00 88 23 110/55 97 Mechanical Ventilator 35 08/10/17 21:00 87 22 90/67 97 Mechanical Ventilator 35 08/10/17 20:59 88 23 35 08/10/17 20:00 35 08/10/17 20:00 87 08/10/17 20:00 98.9 89 22 113/56 96 Mechanical Ventilator 35 98.9 08/10/17 19:27 86 26 35 08/10/17 19:00 Mechanical Ventilator 35 08/10/17 19:00 88 23 113/67 100 Mechanical Ventilator 35 08/10/17 19:00 98.9 24 24 131/66 Mechanical Ventilator 35 98.9 08/10/17 18:00 98.9 85 18 121/65 100 Mechanical Ventilator 35 98.9 08/10/17 17:00 80 18 116/59 100 Mechanical Ventilator 35 08/10/17 16:51 83 22 35 08/10/17 16:05 93 08/10/17 16:00 91 24 128/65 97 Mechanical Ventilator 35 08/10/17 16:00 98.9 98 24 123/68 Mechanical Ventilator 35 98.9 08/10/17 16:00 35 08/10/17 16:00 Mechanical Ventilator 35 08/10/17 15:02 89 23 35 08/10/17 15:00 87 22 125/64 100 Mechanical Ventilator 35 Height (Feet): 5 Height (Inches): 5.00 Weight (Pounds): 321 General Appearance: WD/WN, no acute distress HEENT: normocephalic, atraumatic, anicteric, mucous membranes moist Respiratory/Chest: chest wall non-tender, lungs clear, normal breath sounds, no respiratory distress, no accessory muscle use Cardiovascular: normal peripheral pulses, normal rate, regular rhythm, no gallop/murmur, no JVD Abdomen: normal bowel sounds, soft, non tender, no organomegaly, non distended , no mass, no scars Extremities: no cyanosis, no clubbing Skin: no rash, no lesions, ulcers, other - red and erythematous on the left lower abdominal wall with lymphedema Neurologic/Psychiatric: alert, oriented x 3, responsive Lymphatic: no neck adenopathy Laboratory Tests Test 08/11/17 06:00 08/11/17 07:55 08/11/17 08:15 08/11/17 09:20 White Blood Count 9.4 K/UL (4.8-10.8) 10.4 K/UL (4.8-10.8) Red Blood Count 3.19 M/UL (4.20-5.40) L 3.55 M/UL (4.20-5.40) L Hemoglobin 7.3 G/DL (12.0-16.0) L 7.9 G/DL (12.0-16.0) L Hematocrit 23.3 % (37.0-47.0) L 26.0 % (37.0-47.0) L Mean Corpuscular Volume 73 FL (80-99) L 73 FL (80-99) L Mean Corpuscular Hemoglobin 23.0 PG (27.0-31.0) L 22.2 PG (27.0-31.0) L Mean Corpuscular Hemoglobin Concent 31.5 G/DL (32.0-36.0) L 30.4 G/DL (32.0-36.0) L Red Cell Distribution Width 18.7 % (11.6-14.8) H 18.6 % (11.6-14.8) H Platelet Count 271 K/UL (150-450) 294 K/UL (150-450) Mean Platelet Volume 5.7 FL (6.5-10.1) L 5.8 FL (6.5-10.1) L Neutrophils (%) (Auto) % (45.0-75.0) % (45.0-75.0) Lymphocytes (%) (Auto) % (20.0-45.0) % (20.0-45.0) Monocytes (%) (Auto) % (1.0-10.0) % (1.0-10.0) Eosinophils (%) (Auto) % (0.0-3.0) % (0.0-3.0) Basophils (%) (Auto) % (0.0-2.0) % (0.0-2.0) Differential Total Cells Counted 100 100 Neutrophils % (Manual) 79 % (45-75) H 84 % (45-75) H Lymphocytes % (Manual) 16 % (20-45) L 11 % (20-45) L Monocytes % (Manual) 4 % (1-10) 3 % (1-10) Eosinophils % (Manual) 1 % (0-3) 1 % (0-3) Basophils % (Manual) 0 % (0-2) 1 % (0-2) Band Neutrophils 0 % (0-8) 0 % (0-8) Platelet Estimate Adequate Adequate Platelet Morphology Normal Normal Hypochromasia 3+ 3+ Anisocytosis 2+ 2+ Microcytosis 2+ 2+ Sodium Level 142 MMOL/L (136-145) Potassium Level 4.0 MMOL/L (3.5-5.1) Chloride Level 105 MMOL/L (98-107) Carbon Dioxide Level 29 MMOL/L (21-32) Anion Gap 8 mmol/L (5-15) Blood Urea Nitrogen 39 mg/dL (7-18) H Creatinine 3.9 MG/DL (0.55-1.30) H Estimat Glomerular Filtration Rate 12.3 mL/min (>60) Glucose Level 127 MG/DL (74-106) H Calcium Level 8.1 MG/DL (8.5-10.1) L Arterial Blood pH 7.524 (7.350-7.450) 7.527 (7.350-7.450) Arterial Blood Partial Pressure CO2 39.4 mmHg (35.0-45.0) 37.3 mmHg (35.0-45.0) Arterial Blood Partial Pressure O2 79.0 mmHg (75.0-100.0) 82.1 mmHg (75.0-100.0) Arterial Blood HCO3 31.7 mmol/L (22.0-26.0) H 30.3 mmol/L (22.0-26.0) H Arterial Blood Oxygen Saturation 95.0 % (92.0-98.0) 95.2 % (92.0-98.0) Arterial Blood Base Excess 8.3 7.0 Ravi Test Positive Positive Current Medications Medications (Trade) Dose Ordered Sig/Tommy Route PRN Reason Start Time Stop Time Status Last Admin Dose Admin Acetaminophen (Tylenol) 650 mg EVERY 6 HOURS PRN RECTAL Prn pain/Temp > 100.5 08/08/17 06:00 09/05/17 19:57 Acetaminophen (Tylenol) 650 mg Q4H PRN NG Mild Pain/Temp > 100.5 08/08/17 21:00 09/07/17 20:59 08/09/17 07:10 Chlorhexidine Gluconate (Idalia-Hex 2%) 1 applic DAILY@2000 TOPIC 08/09/17 20:00 09/08/17 19:59 08/10/17 20:45 Clotrimazole (Lotrimin) 1 applic NEEDED TOPIC 08/08/17 05:30 09/07/17 05:29 Dextrose (Dextrose 50%) 25 ml STAT PRN IV Hypoglycemia 08/08/17 20:00 09/05/17 19:57 Dextrose (Dextrose 50%) 50 ml STAT PRN IV Hypoglycemia 08/08/17 20:00 09/05/17 19:57 Heparin Sodium (Porcine) (Heparin 5000 units/ml) 5,000 units Q8H SUBQ 08/08/17 07:00 09/05/17 14:59 08/11/17 06:05 Insulin Aspart (NovoLOG) Resistance sliding sc... BEFORE MEALS AND HS SUBQ 08/08/17 06:30 09/02/17 16:29 08/11/17 12:42 Insulin Detemir (Levemir) 20 units Q12HR SUBQ 08/08/17 09:00 09/06/17 08:59 08/11/17 09:19 Linezolid 300 ml @ 300 mls/hr Q12HR IVPB 08/08/17 09:00 08/14/17 08:59 08/11/17 12:42 Lorazepam (Ativan 2mg/ml 1ml) 2 mg Q4H PRN IV For Anxiety 08/08/17 01:00 08/12/17 20:59 08/08/17 23:30 Meropenem 500 mg/ Sodium Chloride 110 ml @ 220 mls/hr Q12HR IVPB 08/08/17 09:00 08/15/17 23:00 08/11/17 09:15 Norepinephrine Bitartrate 4 mg/ Dextrose 250 ml @ 0 mls/hr Q24H IV 08/08/17 01:30 09/07/17 01:29 08/08/17 01:41 Pantoprazole (Protonix) 40 mg BID IVP 08/09/17 18:00 09/06/17 08:59 08/11/17 09:15 Silver Sulfadiazine (Silvadene Cream 25gm) 1 applic DAILY TOPIC 08/08/17 09:00 08/31/17 10:29 08/11/17 09:15 Johanny Colbert M.D. August 11, 2017 14:24
--- NOTE | 2017-08-11 17:26 | Cardiac Electrophysiology PN ---
Assessment/Plan Assessment/Plan 1. S/P Septic shock due to diabetic ketoacidosis. On broad-spectrum IV antibiotic. Off pressors Echocardiogram showed EF 60%. Rule out for SD 2. Diabetic ketoacidosis, on IV fluids and insulin. 3. S/P Cardiac arrest needing atropine. Due to respiratory failure. Now in SR 4. White count of 36,000, abdominal cellulitis, likely because of the patient's DKA. IV antibiotic per Dr. Colbert. 5. Morbid obesity. 6. Respiratory failure, reextubated today 7. ARF on HD now via Right IJ 8. Anemia hb 6.9. Transfused again 9. Severe hyponatremia, sodium 118, likely due to diabetic ketoacidosis. Resolved now 140s DW RN Subjective Subjective In ICU alert and off pressors. Extubated today. Objective Last 24 Hour Vital Signs Date Time Temp Pulse Resp B/P (MAP) Pulse Ox O2 Delivery O2 Flow Rate FiO2 08/11/17 16:00 4.0 08/11/17 16:00 98 21 121/57 91 Mechanical Ventilator 4.0 08/11/17 15:00 89 28 92/73 94 Mechanical Ventilator 4.0 08/11/17 14:00 99.2 95 35 117/56 91 Mechanical Ventilator 4.0 99.2 08/11/17 13:00 94 28 113/54 93 Mechanical Ventilator 4.0 08/11/17 12:03 97 08/11/17 12:00 4.0 08/11/17 12:00 97 28 116/63 97 Mechanical Ventilator 4.0 08/11/17 11:00 96 29 94/66 94 Mechanical Ventilator 4.0 08/11/17 10:37 92 Nasal Cannula 4.0 36 08/11/17 10:37 Nasal Cannula 4.0 36 08/11/17 10:16 97 16 08/11/17 10:15 Nasal Cannula 4.0 36 08/11/17 10:10 4.0 08/11/17 10:00 95 11 115/54 92 Mechanical Ventilator 35 08/11/17 09:15 94 25 35 08/11/17 09:00 94 15 118/57 94 Mechanical Ventilator 35 08/11/17 08:43 91 08/11/17 08:12 95 23 35 08/11/17 08:11 99 08/11/17 08:10 35 08/11/17 08:00 98.9 93 14 114/56 94 Mechanical Ventilator 35 98.9 08/11/17 07:16 91 23 35 08/11/17 07:00 90 11 120/65 96 Mechanical Ventilator 35 08/11/17 06:00 89 16 92/46 96 Mechanical Ventilator 35 18 05:16 91 21 35 18 05:00 93 16 94/48 96 Mechanical Ventilator 35 08/11/17 04:00 92 08/11/17 04:00 35 08/11/17 04:00 99.0 93 23 121/59 95 Mechanical Ventilator 35 99.0 08/11/17 03:00 92 23 125/61 96 Mechanical Ventilator 35 08/11/17 02:49 89 28 35 08/11/17 02:00 89 23 119/55 95 Mechanical Ventilator 35 08/11/17 01:30 109/55 08/11/17 01:24 85 23 35 08/11/17 01:00 90 23 109/55 94 Mechanical Ventilator 35 08/11/17 00:00 94 08/11/17 00:00 35 08/11/17 00:00 98.7 92 23 114/57 94 Mechanical Ventilator 35 98.7 08/10/17 23:19 82 22 35 08/10/17 23:00 90 23 112/57 96 Mechanical Ventilator 35 08/10/17 22:00 88 23 110/55 97 Mechanical Ventilator 35 08/10/17 21:00 87 22 90/67 97 Mechanical Ventilator 35 08/10/17 20:59 88 23 35 08/10/17 20:00 35 08/10/17 20:00 87 08/10/17 20:00 98.9 89 22 113/56 96 Mechanical Ventilator 35 98.9 08/10/17 19:27 86 26 35 08/10/17 19:00 Mechanical Ventilator 35 08/10/17 19:00 88 23 113/67 100 Mechanical Ventilator 35 08/10/17 19:00 98.9 24 24 131/66 Mechanical Ventilator 35 98.9 08/10/17 18:00 98.9 85 18 121/65 100 Mechanical Ventilator 35 98.9 Intake and Output 18 08/11/17 19:00 07:00 Intake Total 990 ml 990 ml Output Total 2430 ml 450 ml Balance -1440 ml 540 ml Free Water 100 ml 100 ml IV Total 410 ml 410 ml Tube Feeding 480 ml 480 ml Output Urine Total 430 ml 450 ml Hemodialysis UF 2000 ml # Bowel Movements 2 Laboratory Tests Test 08/11/17 06:00 08/11/17 07:55 08/11/17 08:15 08/11/17 09:20 White Blood Count 9.4 K/UL (4.8-10.8) 10.4 K/UL (4.8-10.8) Red Blood Count 3.19 M/UL (4.20-5.40) L 3.55 M/UL (4.20-5.40) L Hemoglobin 7.3 G/DL (12.0-16.0) L 7.9 G/DL (12.0-16.0) L Hematocrit 23.3 % (37.0-47.0) L 26.0 % (37.0-47.0) L Mean Corpuscular Volume 73 FL (80-99) L 73 FL (80-99) L Mean Corpuscular Hemoglobin 23.0 PG (27.0-31.0) L 22.2 PG (27.0-31.0) L Mean Corpuscular Hemoglobin Concent 31.5 G/DL (32.0-36.0) L 30.4 G/DL (32.0-36.0) L Red Cell Distribution Width 18.7 % (11.6-14.8) H 18.6 % (11.6-14.8) H Platelet Count 271 K/UL (150-450) 294 K/UL (150-450) Mean Platelet Volume 5.7 FL (6.5-10.1) L 5.8 FL (6.5-10.1) L Neutrophils (%) (Auto) % (45.0-75.0) % (45.0-75.0) Lymphocytes (%) (Auto) % (20.0-45.0) % (20.0-45.0) Monocytes (%) (Auto) % (1.0-10.0) % (1.0-10.0) Eosinophils (%) (Auto) % (0.0-3.0) % (0.0-3.0) Basophils (%) (Auto) % (0.0-2.0) % (0.0-2.0) Differential Total Cells Counted 100 100 Neutrophils % (Manual) 79 % (45-75) H 84 % (45-75) H Lymphocytes % (Manual) 16 % (20-45) L 11 % (20-45) L Monocytes % (Manual) 4 % (1-10) 3 % (1-10) Eosinophils % (Manual) 1 % (0-3) 1 % (0-3) Basophils % (Manual) 0 % (0-2) 1 % (0-2) Band Neutrophils 0 % (0-8) 0 % (0-8) Platelet Estimate Adequate Adequate Platelet Morphology Normal Normal Hypochromasia 3+ 3+ Anisocytosis 2+ 2+ Microcytosis 2+ 2+ Sodium Level 142 MMOL/L (136-145) Potassium Level 4.0 MMOL/L (3.5-5.1) Chloride Level 105 MMOL/L (98-107) Carbon Dioxide Level 29 MMOL/L (21-32) Anion Gap 8 mmol/L (5-15) Blood Urea Nitrogen 39 mg/dL (7-18) H Creatinine 3.9 MG/DL (0.55-1.30) H Estimat Glomerular Filtration Rate 12.3 mL/min (>60) Glucose Level 127 MG/DL (74-106) H Calcium Level 8.1 MG/DL (8.5-10.1) L Arterial Blood pH 7.524 (7.350-7.450) 7.527 (7.350-7.450) Arterial Blood Partial Pressure CO2 39.4 mmHg (35.0-45.0) 37.3 mmHg (35.0-45.0) Arterial Blood Partial Pressure O2 79.0 mmHg (75.0-100.0) 82.1 mmHg (75.0-100.0) Arterial Blood HCO3 31.7 mmol/L (22.0-26.0) H 30.3 mmol/L (22.0-26.0) H Arterial Blood Oxygen Saturation 95.0 % (92.0-98.0) 95.2 % (92.0-98.0) Arterial Blood Base Excess 8.3 7.0 Ravi Test Positive Positive Objective HEAD AND NECK: No JVD, NG tube is in. Right IJ Manjinder catheter LUNGS: Coarse rhonchi. CARDIOVASCULAR: Regular S1 and S2 with no gallop. ABDOMEN: Cellulitis of the lower abdomen and erythema. EXTREMITIES: 1+ pitting edema.Adama Tracey MD August 11, 2017 17:26
--- NOTE | 2017-08-11 18:01 | Pulmonology Progress Note ---
Assessment/Plan Assessment/Plan respiratory failure s/p extubation and now with reintubation DKA sepsis abd wall cellulitis fluid overload effusions and edema anemia PLAN vent support removed seen earlier stable off vent keep negative monitor for change and recommend from pulm standpoint ICU care overnight; monitor acid base patient critical Subjective Allergies: Coded Allergies: PENICILLINS (Verified Allergy, Unknown, 07/30/17) According to mother, the patient is allergic to Penicillins Subjective on vent- seen earlier extubated and stable d/w RN care noted Objective Last 24 Hour Vital Signs Date Time Temp Pulse Resp B/P (MAP) Pulse Ox O2 Delivery O2 Flow Rate FiO2 08/11/17 17:00 100 24 130/73 96 Mechanical Ventilator 4.0 08/11/17 16:00 4.0 08/11/17 16:00 98 21 121/57 91 Mechanical Ventilator 4.0 08/11/17 15:00 89 28 92/73 94 Mechanical Ventilator 4.0 08/11/17 14:00 99.2 95 35 117/56 91 Mechanical Ventilator 4.0 99.2 08/11/17 13:06 97 08/11/17 13:00 94 28 113/54 93 Mechanical Ventilator 4.0 08/11/17 12:03 97 08/11/17 12:00 4.0 08/11/17 12:00 97 28 116/63 97 Mechanical Ventilator 4.0 08/11/17 11:00 96 29 94/66 94 Mechanical Ventilator 4.0 08/11/17 10:37 92 Nasal Cannula 4.0 36 08/11/17 10:37 Nasal Cannula 4.0 36 08/11/17 10:16 97 16 08/11/17 10:15 Nasal Cannula 4.0 36 08/11/17 10:10 4.0 08/11/17 10:00 95 11 115/54 92 Mechanical Ventilator 35 08/11/17 09:15 94 25 35 08/11/17 09:00 94 15 118/57 94 Mechanical Ventilator 35 08/11/17 08:43 91 08/11/17 08:12 95 23 35 08/11/17 08:11 99 08/11/17 08:10 35 08/11/17 08:00 98.9 93 14 114/56 94 Mechanical Ventilator 35 98.9 08/11/17 07:16 91 23 35 08/11/17 07:00 90 11 120/65 96 Mechanical Ventilator 35 08/11/17 06:00 89 16 92/46 96 Mechanical Ventilator 35 08/11/17 05:16 91 21 35 08/11/17 05:00 93 16 94/48 96 Mechanical Ventilator 35 08/11/17 04:00 92 08/11/17 04:00 35 08/11/17 04:00 99.0 93 23 121/59 95 Mechanical Ventilator 35 99.0 08/11/17 03:00 92 23 125/61 96 Mechanical Ventilator 35 08/11/17 02:49 89 28 35 08/11/17 02:00 89 23 119/55 95 Mechanical Ventilator 35 08/11/17 01:30 109/55 08/11/17 01:24 85 23 35 08/11/17 01:00 90 23 109/55 94 Mechanical Ventilator 35 08/11/17 00:00 94 08/11/17 00:00 35 08/11/17 00:00 98.7 92 23 114/57 94 Mechanical Ventilator 35 98.7 08/10/17 23:19 82 22 35 08/10/17 23:00 90 23 112/57 96 Mechanical Ventilator 35 08/10/17 22:00 88 23 110/55 97 Mechanical Ventilator 35 08/10/17 21:00 87 22 90/67 97 Mechanical Ventilator 35 08/10/17 20:59 88 23 35 08/10/17 20:00 35 08/10/17 20:00 87 08/10/17 20:00 98.9 89 22 113/56 96 Mechanical Ventilator 35 98.9 08/10/17 19:27 86 26 35 08/10/17 19:00 Mechanical Ventilator 35 08/10/17 19:00 88 23 113/67 100 Mechanical Ventilator 35 08/10/17 19:00 98.9 24 24 131/66 Mechanical Ventilator 35 98.9 Intake and Output 08/10/17 08/11/17 19:00 07:00 Intake Total 990 ml 990 ml Output Total 2430 ml 450 ml Balance -1440 ml 540 ml Free Water 100 ml 100 ml IV Total 410 ml 410 ml Tube Feeding 480 ml 480 ml Output Urine Total 430 ml 450 ml Hemodialysis UF 2000 ml # Bowel Movements 2 Objective WDWN on vent NAD reduced breath sounds bilaterally without rhonchi or wheeze [id number] without MRG NABS nontender no HSM no CC edema nonfocal Laboratory Tests 08/11/17 06:00: White Blood Count 9.4, Red Blood Count 3.19L, Hemoglobin 7.3L, Hematocrit 23.3L , Mean Corpuscular Volume 73L, Mean Corpuscular Hemoglobin 23.0L, Mean Corpuscular Hemoglobin Concent 31.5L, Red Cell Distribution Width 18.7H, Platelet Count 271, Mean Platelet Volume 5.7L, Neutrophils (%) (Auto) , Lymphocytes (%) (Auto) , Monocytes (%) (Auto) , Eosinophils (%) (Auto) , Basophils (%) (Auto) , Differential Total Cells Counted 100, Neutrophils % ( Manual) 79H, Lymphocytes % (Manual) 16L, Monocytes % (Manual) 4, Eosinophils % ( Manual) 1, Basophils % (Manual) 0, Band Neutrophils 0, Platelet Estimate Adequate, Platelet Morphology Normal, Hypochromasia 3+, Anisocytosis 2+, Microcytosis 2+, Sodium Level 142, Potassium Level 4.0, Chloride Level 105, Carbon Dioxide Level 29, Anion Gap 8, Blood Urea Nitrogen 39H, Creatinine 3.9H, Estimat Glomerular Filtration Rate 12.3, Glucose Level 127H, Calcium Level 8.1L 08/11/17 07:55: Arterial Blood pH 7.524H, Arterial Blood Partial Pressure CO2 39.4, Arterial Blood Partial Pressure O2 79.0, Arterial Blood HCO3 31.7H, Arterial Blood Oxygen Saturation 95.0, Arterial Blood Base Excess 8.3, Ravi Test Positive 08/11/17 08:15: White Blood Count 10.4, Red Blood Count 3.55L, Hemoglobin 7.9L, Hematocrit 26.0L , Mean Corpuscular Volume 73L, Mean Corpuscular Hemoglobin 22.2L, Mean Corpuscular Hemoglobin Concent 30.4L, Red Cell Distribution Width 18.6H, Platelet Count 294, Mean Platelet Volume 5.8L, Neutrophils (%) (Auto) , Lymphocytes (%) (Auto) , Monocytes (%) (Auto) , Eosinophils (%) (Auto) , Basophils (%) (Auto) , Differential Total Cells Counted 100, Neutrophils % ( Manual) 84H, Lymphocytes % (Manual) 11L, Monocytes % (Manual) 3, Eosinophils % ( Manual) 1, Basophils % (Manual) 1, Band Neutrophils 0, Platelet Estimate Adequate, Platelet Morphology Normal, Hypochromasia 3+, Anisocytosis 2+, Microcytosis 2+ 08/11/17 09:20: Arterial Blood pH 7.527H, Arterial Blood Partial Pressure CO2 37.3, Arterial Blood Partial Pressure O2 82.1, Arterial Blood HCO3 30.3H, Arterial Blood Oxygen Saturation 95.2, Arterial Blood Base Excess 7.0, Ravi Test Positive Current Medications Medications (Trade) Dose Ordered Sig/Tommy Route PRN Reason Start Time Stop Time Status Last Admin Dose Admin Acetaminophen (Tylenol) 650 mg EVERY 6 HOURS PRN RECTAL Prn pain/Temp > 100.5 08/08/17 06:00 09/05/17 19:57 Acetaminophen (Tylenol) 650 mg Q4H PRN NG Mild Pain/Temp > 100.5 08/08/17 21:00 09/07/17 20:59 08/09/17 07:10 Chlorhexidine Gluconate (Idalia-Hex 2%) 1 applic DAILY@2000 TOPIC 08/09/17 20:00 09/08/17 19:59 08/10/17 20:45 Clotrimazole (Lotrimin) 1 applic NEEDED TOPIC 08/08/17 05:30 09/07/17 05:29 Dextrose (Dextrose 50%) 25 ml STAT PRN IV Hypoglycemia 08/08/17 20:00 09/05/17 19:57 Dextrose (Dextrose 50%) 50 ml STAT PRN IV Hypoglycemia 08/08/17 20:00 09/05/17 19:57 Heparin Sodium (Porcine) (Heparin 5000 units/ml) 5,000 units Q8H SUBQ 08/08/17 07:00 09/05/17 14:59 08/11/17 16:41 Insulin Aspart (NovoLOG) Resistance sliding sc... BEFORE MEALS AND HS SUBQ 08/08/17 06:30 09/02/17 16:29 08/11/17 16:40 Insulin Detemir (Levemir) 20 units Q12HR SUBQ 08/08/17 09:00 09/06/17 08:59 08/11/17 09:19 Linezolid 300 ml @ 300 mls/hr Q12HR IVPB 08/08/17 09:00 08/14/17 08:59 08/11/17 12:42 Lorazepam (Ativan 2mg/ml 1ml) 2 mg Q4H PRN IV For Anxiety 08/08/17 01:00 08/12/17 20:59 08/08/17 23:30 Meropenem 500 mg/ Sodium Chloride 110 ml @ 220 mls/hr Q12HR IVPB 08/08/17 09:00 08/15/17 23:00 08/11/17 09:15 Norepinephrine Bitartrate 4 mg/ Dextrose 250 ml @ 0 mls/hr Q24H IV 08/08/17 01:30 09/07/17 01:29 08/08/17 01:41 Pantoprazole (Protonix) 40 mg BID IVP 08/09/17 18:00 09/06/17 08:59 08/11/17 09:15 Silver Sulfadiazine (Silvadene Cream 25gm) 1 applic DAILY TOPIC 08/08/17 09:00 08/31/17 10:29 08/11/17 09:15 Stew Hopson MD August 11, 2017 18:01
[2017-08-11] MEDS: Dyna-Hex 2% Top Sol 2oz TOPIC SCH (20:05)
[2017-08-12] VITALS (24 sets, daily range): BP systolic 108–166; BP diastolic 57–96
[2017-08-12 05:07] LABS: HEMATOCRIT 24.1 % (37.0-47.0); HEMOGLOBIN 7.6 G/DL (12.0-16.0); MEAN CORPUSCULAR VOLUME 73 FL (80-99); PLATELET COUNT 312 K/UL (150-450); RED BLOOD COUNT 3.29 M/UL (4.20-5.40); RED CELL DISTRIBUTION WIDTH 18.6 % (11.6-14.8); WHITE BLOOD COUNT 9.2 K/UL (4.8-10.8)
[2017-08-12 05:41] LABS: ANION GAP 6 mmol/L (5-15); BLOOD UREA NITROGEN 49 mg/dL (7-18); CALCIUM 8.5 MG/DL (8.5-10.1); CARBON DIOXIDE 30 MMOL/L (21-32); CHLORIDE 106 MMOL/L (98-107); CREATININE 4.5 MG/DL (0.55-1.30); PHOSPHORUS 5.1 MG/DL (2.5-4.9); SODIUM 142 MMOL/L (136-145)
[2017-08-12] MEDS: NovoLOG Insulin Flexpen SUBQ SCH ×4 (06:30→21:00)
[2017-08-12] MEDS: Heparin 5000 units/ml inj SUBQ SCH ×3 (06:53→23:33)
--- NOTE | 2017-08-12 08:07 | Nephrology Progress Note ---
Assessment/Plan Assessment/Plan 1. SCARLET- ATN non resolving. HD today with 3 L UF - multifact ATN (sepsis induced inflammotory cytokine prox tub damage/ ishchemic ATN hypotension/vol dep) 2. DKA/Met Acidosis - resolved 3. Septic Shock- etiology likely from abd cellulitis. Abx mgmt per ID. - Much improved 4. Hypotension- resolved now off pressors. Monitor during HD with UF 5. Resp FL- extubated 6. Hypok+/Ca/Phos- replace prn. DC TF's 7. Anemia- When stable GI anticipates procedure. -PRN Bld tx Subjective Date patient seen: August 12, 2017 Time patient seen: 08:04 ROS Limited/Unobtainable: No Constitutional: Reports: weakness Allergies: Coded Allergies: LATEX (Verified Allergy, Unknown, skin rash, 08/12/17) PENICILLINS (Verified Allergy, Unknown, 07/30/17) According to mother, the patient is allergic to Penicillins All Systems: reviewed and negative except above Subjective Patient extubated and feeling much better Objective Last 24 Hour Vital Signs Date Time Temp Pulse Resp B/P (MAP) Pulse Ox O2 Delivery O2 Flow Rate FiO2 08/12/17 07:00 94 30 126/82 95 Mechanical Ventilator 4.0 08/12/17 06:00 98.4 89 22 108/58 94 Mechanical Ventilator 4.0 98.4 08/12/17 05:00 93 24 115/57 92 Mechanical Ventilator 4.0 08/12/17 04:00 95 30 130/67 92 Mechanical Ventilator 4.0 08/12/17 04:00 92 08/12/17 03:00 94 30 128/81 91 Mechanical Ventilator 4.0 08/12/17 02:00 94 30 124/70 94 Mechanical Ventilator 4.0 08/12/17 01:30 107/62 08/12/17 01:00 94 30 121/68 94 Mechanical Ventilator 4.0 08/12/17 00:00 98.7 92 27 127/65 93 Mechanical Ventilator 4.0 98.7 08/12/17 00:00 92 08/11/17 23:00 90 31 118/72 93 Mechanical Ventilator 4.0 08/11/17 22:00 96 22 122/59 94 Mechanical Ventilator 4.0 08/11/17 21:00 100 28 120/63 92 Mechanical Ventilator 4.0 08/11/17 20:00 98.8 104 33 111/53 91 Mechanical Ventilator 4.0 98.8 08/11/17 20:00 102 08/11/17 19:18 93 Nasal Cannula 4.0 36 08/11/17 19:18 Nasal Cannula 4.0 36 08/11/17 19:00 99.3 102 31 112/67 95 Mechanical Ventilator 4.0 99.3 08/11/17 18:00 102 31 137/74 96 Mechanical Ventilator 4.0 08/11/17 17:00 100 24 130/73 96 Mechanical Ventilator 4.0 08/11/17 16:00 4.0 08/11/17 16:00 98 21 121/57 91 Mechanical Ventilator 4.0 08/11/17 15:00 89 28 92/73 94 Mechanical Ventilator 4.0 08/11/17 14:00 99.2 95 35 117/56 91 Mechanical Ventilator 4.0 99.2 08/11/17 13:06 97 08/11/17 13:00 94 28 113/54 93 Mechanical Ventilator 4.0 08/11/17 12:03 97 08/11/17 12:00 4.0 08/11/17 12:00 97 28 116/63 97 Mechanical Ventilator 4.0 08/11/17 11:00 96 29 94/66 94 Mechanical Ventilator 4.0 08/11/17 10:37 92 Nasal Cannula 4.0 36 08/11/17 10:37 Nasal Cannula 4.0 36 08/11/17 10:16 97 16 08/11/17 10:15 Nasal Cannula 4.0 36 08/11/17 10:10 4.0 08/11/17 10:00 95 11 115/54 92 Mechanical Ventilator 35 08/11/17 09:15 94 25 35 08/11/17 09:00 94 15 118/57 94 Mechanical Ventilator 35 08/11/17 08:43 91 08/11/17 08:12 95 23 35 08/11/17 08:11 99 08/11/17 08:10 35 Intake and Output 08/11/17 08/12/17 19:00 07:00 Intake Total 990 ml 890 ml Output Total 665 ml 680 ml Balance 325 ml 210 ml Free Water 100 ml IV Total 410 ml 410 ml Tube Feeding 480 ml 480 ml Output Urine Total 665 ml 680 ml # Bowel Movements 1 Laboratory Tests 08/11/17 08:15: White Blood Count 10.4, Red Blood Count 3.55L, Hemoglobin 7.9L, Hematocrit 26.0L , Mean Corpuscular Volume 73L, Mean Corpuscular Hemoglobin 22.2L, Mean Corpuscular Hemoglobin Concent 30.4L, Red Cell Distribution Width 18.6H, Platelet Count 294, Mean Platelet Volume 5.8L, Neutrophils (%) (Auto) , Lymphocytes (%) (Auto) , Monocytes (%) (Auto) , Eosinophils (%) (Auto) , Basophils (%) (Auto) , Differential Total Cells Counted 100, Neutrophils % ( Manual) 84H, Lymphocytes % (Manual) 11L, Monocytes % (Manual) 3, Eosinophils % ( Manual) 1, Basophils % (Manual) 1, Band Neutrophils 0, Platelet Estimate Adequate, Platelet Morphology Normal, Hypochromasia 3+, Anisocytosis 2+, Microcytosis 2+ 08/11/17 09:20: Arterial Blood pH 7.527H, Arterial Blood Partial Pressure CO2 37.3, Arterial Blood Partial Pressure O2 82.1, Arterial Blood HCO3 30.3H, Arterial Blood Oxygen Saturation 95.2, Arterial Blood Base Excess 7.0, Ravi Test Positive 08/12/17 04:10: White Blood Count 9.2, Red Blood Count 3.29L, Hemoglobin 7.6L, Hematocrit 24.1L , Mean Corpuscular Volume 73L, Mean Corpuscular Hemoglobin 23.1L, Mean Corpuscular Hemoglobin Concent 31.6L, Red Cell Distribution Width 18.6H, Platelet Count 312, Mean Platelet Volume 6.0L, Neutrophils (%) (Auto) , Lymphocytes (%) (Auto) , Monocytes (%) (Auto) , Eosinophils (%) (Auto) , Basophils (%) (Auto) , Neutrophils % (Manual) [Pending], Lymphocytes % (Manual) [Pending], Platelet Estimate [Pending], Platelet Morphology [Pending], Sodium Level 142, Potassium Level 4.0, Chloride Level 106, Carbon Dioxide Level 30, Anion Gap 6, Blood Urea Nitrogen 49H, Creatinine 4.5H, Estimat Glomerular Filtration Rate 10.5, Glucose Level 123H, Calcium Level 8.5, Ionized Calcium ( Measured) 1.10, Phosphorus Level 5.1H, Magnesium Level 2.2 Height (Feet): 5 Height (Inches): 5.00 Weight (Pounds): 321 General Appearance: WD/WN, no apparent distress EENT: PERRL/EOMI, normal ENT inspection Neck: normal alignment, supple Cardiovascular: normal rate, regular rhythm Respiratory/Chest: lungs clear, normal breath sounds Abdomen: normal bowel sounds, non tender, other - erythema improved Edema: 1+ Arm (L), 1+ Arm (R), 1+ Leg (L), 1+ Leg (R), 1+ Pedal (L), 1+ Pedal ( R), 1+ Generalized Carlton Guzmán M.D. August 12, 2017 08:07
[2017-08-12] MEDS: Pantoprazole Inj IVP SCH ×2 (08:35→17:21)
[2017-08-12] MEDS: Meropenem 500 MG in NS 110 ML IVPB SCH ×2 (08:36→20:56)
--- NOTE | 2017-08-12 08:57 | Pulmonology Progress Note ---
Assessment/Plan Assessment/Plan respiratory failure s/p extubation and now with reintubation DKA sepsis abd wall cellulitis fluid overload effusions and edema anemia PLAN vent support off BIPAP QHS stable off vent for now keep negative monitor for change and recommend from pulm standpoint ICU care overnight; monitor acid base patient critical Subjective Allergies: Coded Allergies: LATEX (Verified Allergy, Unknown, skin rash, 08/12/17) PENICILLINS (Verified Allergy, Unknown, 07/30/17) According to mother, the patient is allergic to Penicillins Subjective off vent- BIPAP overnight d/w RN care noted Objective Last 24 Hour Vital Signs Date Time Temp Pulse Resp B/P (MAP) Pulse Ox O2 Delivery O2 Flow Rate FiO2 08/12/17 08:18 96 Nasal Cannula 4.0 36 08/12/17 08:18 Nasal Cannula 4.0 36 08/12/17 08:00 98.6 102 24 123/71 97 Nasal Cannula 4.0 98.6 08/12/17 08:00 96 08/12/17 07:00 94 30 126/82 95 Mechanical Ventilator 4.0 08/12/17 06:00 98.4 89 22 108/58 94 Mechanical Ventilator 4.0 98.4 08/12/17 05:00 93 24 115/57 92 Mechanical Ventilator 4.0 08/12/17 04:00 95 30 130/67 92 Mechanical Ventilator 4.0 08/12/17 04:00 92 08/12/17 03:00 94 30 128/81 91 Mechanical Ventilator 4.0 08/12/17 02:00 94 30 124/70 94 Mechanical Ventilator 4.0 08/12/17 01:30 107/62 08/12/17 01:00 94 30 121/68 94 Mechanical Ventilator 4.0 08/12/17 00:00 98.7 92 27 127/65 93 Mechanical Ventilator 4.0 98.7 08/12/17 00:00 92 08/11/17 23:00 90 31 118/72 93 Mechanical Ventilator 4.0 08/11/17 22:00 96 22 122/59 94 Mechanical Ventilator 4.0 08/11/17 21:00 100 28 120/63 92 Mechanical Ventilator 4.0 08/11/17 20:00 98.8 104 33 111/53 91 Mechanical Ventilator 4.0 98.8 08/11/17 20:00 102 08/11/17 19:18 93 Nasal Cannula 4.0 36 08/11/17 19:18 Nasal Cannula 4.0 36 08/11/17 19:00 99.3 102 31 112/67 95 Mechanical Ventilator 4.0 99.3 08/11/17 18:00 102 31 137/74 96 Mechanical Ventilator 4.0 08/11/17 17:00 100 24 130/73 96 Mechanical Ventilator 4.0 08/11/17 16:00 4.0 08/11/17 16:00 98 21 121/57 91 Mechanical Ventilator 4.0 08/11/17 15:00 89 28 92/73 94 Mechanical Ventilator 4.0 08/11/17 14:00 99.2 95 35 117/56 91 Mechanical Ventilator 4.0 99.2 08/11/17 13:06 97 08/11/17 13:00 94 28 113/54 93 Mechanical Ventilator 4.0 08/11/17 12:03 97 08/11/17 12:00 4.0 08/11/17 12:00 97 28 116/63 97 Mechanical Ventilator 4.0 08/11/17 11:00 96 29 94/66 94 Mechanical Ventilator 4.0 08/11/17 10:37 92 Nasal Cannula 4.0 36 08/11/17 10:37 Nasal Cannula 4.0 36 08/11/17 10:16 97 16 08/11/17 10:15 Nasal Cannula 4.0 36 08/11/17 10:10 4.0 08/11/17 10:00 95 11 115/54 92 Mechanical Ventilator 35 08/11/17 09:15 94 25 35 08/11/17 09:00 94 15 118/57 94 Mechanical Ventilator 35 Intake and Output 08/11/17 08/12/17 19:00 07:00 Intake Total 990 ml 890 ml Output Total 665 ml 680 ml Balance 325 ml 210 ml Free Water 100 ml IV Total 410 ml 410 ml Tube Feeding 480 ml 480 ml Output Urine Total 665 ml 680 ml # Bowel Movements 1 Objective WDWN off vent NAD reduced breath sounds bilaterally without rhonchi or wheeze [id number] without MRG NABS nontender no HSM no CC edema nonfocal Laboratory Tests 08/11/17 09:20: Arterial Blood pH 7.527H, Arterial Blood Partial Pressure CO2 37.3, Arterial Blood Partial Pressure O2 82.1, Arterial Blood HCO3 30.3H, Arterial Blood Oxygen Saturation 95.2, Arterial Blood Base Excess 7.0, Ravi Test Positive 08/12/17 04:10: White Blood Count 9.2, Red Blood Count 3.29L, Hemoglobin 7.6L, Hematocrit 24.1L , Mean Corpuscular Volume 73L, Mean Corpuscular Hemoglobin 23.1L, Mean Corpuscular Hemoglobin Concent 31.6L, Red Cell Distribution Width 18.6H, Platelet Count 312, Mean Platelet Volume 6.0L, Neutrophils (%) (Auto) , Lymphocytes (%) (Auto) , Monocytes (%) (Auto) , Eosinophils (%) (Auto) , Basophils (%) (Auto) , Differential Total Cells Counted 100, Neutrophils % ( Manual) 83H, Lymphocytes % (Manual) 11L, Monocytes % (Manual) 2, Eosinophils % ( Manual) 2, Basophils % (Manual) 1, Band Neutrophils 1, Platelet Estimate Adequate, Platelet Morphology Normal, Hypochromasia 2+, Anisocytosis 2+, Microcytosis 1+, Stomatocytes Occasional, Sodium Level 142, Potassium Level 4.0 , Chloride Level 106, Carbon Dioxide Level 30, Anion Gap 6, Blood Urea Nitrogen 49H, Creatinine 4.5H, Estimat Glomerular Filtration Rate 10.5, Glucose Level 123H, Calcium Level 8.5, Ionized Calcium (Measured) 1.10, Phosphorus Level 5.1H , Magnesium Level 2.2 Current Medications Medications (Trade) Dose Ordered Sig/Tommy Route PRN Reason Start Time Stop Time Status Last Admin Dose Admin Acetaminophen (Tylenol) 650 mg EVERY 6 HOURS PRN RECTAL Prn pain/Temp > 100.5 08/08/17 06:00 09/05/17 19:57 Acetaminophen (Tylenol) 650 mg Q4H PRN NG Mild Pain/Temp > 100.5 08/08/17 21:00 09/07/17 20:59 08/09/17 07:10 Chlorhexidine Gluconate (Idalia-Hex 2%) 1 applic DAILY@1999 TOPIC 08/09/17 20:00 09/08/17 19:59 08/11/17 20:05 Clotrimazole (Lotrimin) 1 applic NEEDED TOPIC 08/08/17 05:30 09/07/17 05:29 Dextrose (Dextrose 50%) 25 ml STAT PRN IV Hypoglycemia 08/08/17 20:00 09/05/17 19:57 Dextrose (Dextrose 50%) 25 ml STAT PRN IV Hypoglycemia 08/12/17 09:00 09/11/17 08:59 UNV Dextrose (Dextrose 50%) 50 ml STAT PRN IV Hypoglycemia 08/08/17 20:00 09/05/17 19:57 Dextrose (Dextrose 50%) 50 ml STAT PRN IV Hypoglycemia 08/12/17 09:00 09/11/17 08:59 UNV Heparin Sodium (Porcine) (Heparin 5000 units/ml) 5,000 units Q8H SUBQ 08/08/17 07:00 09/05/17 14:59 08/12/17 06:53 Insulin Aspart (NovoLOG) BEFORE MEALS AND HS SUBQ 08/12/17 11:30 09/11/17 11:29 UNV Insulin Detemir (Levemir) 16 units Q12HR SUBQ 08/12/17 09:00 09/06/17 08:59 UNV Linezolid 300 ml @ 300 mls/hr Q12HR IVPB 08/08/17 09:00 08/14/17 08:59 08/11/17 20:51 Lorazepam (Ativan 2mg/ml 1ml) 2 mg Q4H PRN IV For Anxiety 08/08/17 01:00 08/12/17 20:59 08/08/17 23:30 Meropenem 500 mg/ Sodium Chloride 110 ml @ 220 mls/hr Q12HR IVPB 08/08/17 09:00 08/15/17 23:00 08/12/17 08:36 Norepinephrine Bitartrate 4 mg/ Dextrose 250 ml @ 0 mls/hr Q24H IV 08/08/17 01:30 09/07/17 01:29 08/08/17 01:41 Pantoprazole (Protonix) 40 mg BID IVP 08/09/17 18:00 09/06/17 08:59 08/12/17 08:35 Silver Sulfadiazine (Silvadene Cream 25gm) 1 applic DAILY TOPIC 08/08/17 09:00 08/31/17 10:29 08/12/17 08:36 Stew Hopson MD August 12, 2017 08:57
[2017-08-12] MEDS: Levemir Flexpen SUBQ SCH ×2 (09:19→20:57)
--- NOTE | 2017-08-12 11:59 | GI Progress Note ---
Assessment/Plan Problems: (1) Anemia ICD Codes: D64.9 - Anemia, unspecified SNOMED: 706526024 (2) Diabetes mellitus ICD Codes: E11.9 - Type 2 diabetes mellitus without complications SNOMED: 21364062 Status: progressing Status Narrative Discussed with Dr. Hernandez. Assessment/Plan Assessment - Sepsis, improved - resp failure, resolved - DKA - abd wall cellulitis - obesity - Renal failure - Anemia >> OB (+)(-) - extubated today - ST evaluation reviewed Recommendations - FLD, adv as tolerated - ppi BID - elevated HOB - abx - follow labs and exam - check additional OB - transfuse PRN - fu labs Subjective Subjective limited Objective Last 24 Hour Vital Signs Date Time Temp Pulse Resp B/P (MAP) Pulse Ox O2 Delivery O2 Flow Rate FiO2 08/12/17 11:00 92 30 166/71 92 Nasal Cannula 4.0 08/12/17 10:00 93 24 149/78 92 Nasal Cannula 4.0 08/12/17 09:00 97 20 125/65 92 Nasal Cannula 4.0 08/12/17 08:18 96 Nasal Cannula 4.0 36 08/12/17 08:18 Nasal Cannula 4.0 36 08/12/17 08:00 98.6 102 24 123/71 97 Nasal Cannula 4.0 98.6 08/12/17 08:00 96 08/12/17 07:00 94 30 126/82 95 Mechanical Ventilator 4.0 08/12/17 06:00 98.4 89 22 108/58 94 Mechanical Ventilator 4.0 98.4 08/12/17 05:00 93 24 115/57 92 Mechanical Ventilator 4.0 08/12/17 04:00 95 30 130/67 92 Mechanical Ventilator 4.0 08/12/17 04:00 92 08/12/17 03:00 94 30 128/81 91 Mechanical Ventilator 4.0 08/12/17 02:00 94 30 124/70 94 Mechanical Ventilator 4.0 08/12/17 01:30 107/62 08/12/17 01:00 94 30 121/68 94 Mechanical Ventilator 4.0 08/12/17 00:00 98.7 92 27 127/65 93 Mechanical Ventilator 4.0 98.7 08/12/17 00:00 92 08/11/17 23:00 90 31 118/72 93 Mechanical Ventilator 4.0 08/11/17 22:00 96 22 122/59 94 Mechanical Ventilator 4.0 08/11/17 21:00 100 28 120/63 92 Mechanical Ventilator 4.0 08/11/17 20:00 98.8 104 33 111/53 91 Mechanical Ventilator 4.0 98.8 08/11/17 20:00 102 08/11/17 19:18 93 Nasal Cannula 4.0 36 08/11/17 19:18 Nasal Cannula 4.0 36 08/11/17 19:00 99.3 102 31 112/67 95 Mechanical Ventilator 4.0 99.3 08/11/17 18:00 102 31 137/74 96 Mechanical Ventilator 4.0 08/11/17 17:00 100 24 130/73 96 Mechanical Ventilator 4.0 08/11/17 16:00 4.0 08/11/17 16:00 98 21 121/57 91 Mechanical Ventilator 4.0 08/11/17 15:00 89 28 92/73 94 Mechanical Ventilator 4.0 08/11/17 14:00 99.2 95 35 117/56 91 Mechanical Ventilator 4.0 99.2 08/11/17 13:06 97 08/11/17 13:00 94 28 113/54 93 Mechanical Ventilator 4.0 08/11/17 12:03 97 08/11/17 12:00 4.0 08/11/17 12:00 97 28 116/63 97 Mechanical Ventilator 4.0 Intake and Output 08/11/17 08/12/17 19:00 07:00 Intake Total 990 ml 890 ml Output Total 665 ml 680 ml Balance 325 ml 210 ml Free Water 100 ml IV Total 410 ml 410 ml Tube Feeding 480 ml 480 ml Output Urine Total 665 ml 680 ml # Bowel Movements 1 Laboratory Tests Test 08/12/17 04:10 White Blood Count 9.2 K/UL (4.8-10.8) Red Blood Count 3.29 M/UL (4.20-5.40) L Hemoglobin 7.6 G/DL (12.0-16.0) L Hematocrit 24.1 % (37.0-47.0) L Mean Corpuscular Volume 73 FL (80-99) L Mean Corpuscular Hemoglobin 23.1 PG (27.0-31.0) L Mean Corpuscular Hemoglobin Concent 31.6 G/DL (32.0-36.0) L Red Cell Distribution Width 18.6 % (11.6-14.8) H Platelet Count 312 K/UL (150-450) Mean Platelet Volume 6.0 FL (6.5-10.1) L Neutrophils (%) (Auto) % (45.0-75.0) Lymphocytes (%) (Auto) % (20.0-45.0) Monocytes (%) (Auto) % (1.0-10.0) Eosinophils (%) (Auto) % (0.0-3.0) Basophils (%) (Auto) % (0.0-2.0) Differential Total Cells Counted 100 Neutrophils % (Manual) 83 % (45-75) H Lymphocytes % (Manual) 11 % (20-45) L Monocytes % (Manual) 2 % (1-10) Eosinophils % (Manual) 2 % (0-3) Basophils % (Manual) 1 % (0-2) Band Neutrophils 1 % (0-8) Platelet Estimate Adequate Platelet Morphology Normal Hypochromasia 2+ Anisocytosis 2+ Microcytosis 1+ Stomatocytes Occasional Sodium Level 142 MMOL/L (136-145) Potassium Level 4.0 MMOL/L (3.5-5.1) Chloride Level 106 MMOL/L (98-107) Carbon Dioxide Level 30 MMOL/L (21-32) Anion Gap 6 mmol/L (5-15) Blood Urea Nitrogen 49 mg/dL (7-18) H Creatinine 4.5 MG/DL (0.55-1.30) H Estimat Glomerular Filtration Rate 10.5 mL/min (>60) Glucose Level 123 MG/DL (74-106) H Calcium Level 8.5 MG/DL (8.5-10.1) Ionized Calcium (Measured) 1.10 mmol/L (1.10-1.35) Phosphorus Level 5.1 MG/DL (2.5-4.9) H Magnesium Level 2.2 MG/DL (1.8-2.4) Height (Feet): 5 Height (Inches): 5.00 Weight (Pounds): 321 General Appearance: WD/WN, no apparent distress, alert, morbidly obese Cardiovascular: normal rate Respiratory/Chest: normal breath sounds, no respiratory distress Abdominal Exam: normal bowel sounds, non tender, soft Extremities: non-tender Ham Gonzalez NP August 12, 2017 11:59
--- NOTE | 2017-08-12 13:43 | Infectious Diseases Prog Note ---
Assessment/Plan Problems: (1) Cellulitis of abdominal wall Assessment & Plan: complicated with panniculitis, now improving with aggressive HD , to improve her lymphedema , will continue meropenem and zyvox empiric coverage for now , pending bone scan of the left leg to rule out osteomyelitis , surgery has been following , repeated blood culture is negative so far . she has slow recovery due to significant lymphedema and fluids overload. (2) UTI (urinary tract infection) Assessment & Plan: due to strep agalactiae and staph aureus, improved , she is already on meropenem and zyvox (3) Septic shock Assessment & Plan: due to the above , blood culture remains negative , has improvement in her leukocytosis, left femoral HD catheter was pulled out , repeated blood culture is negative , continue meropenem and zyvox , monitor WBC (4) Respiratory failure requiring intubation Assessment & Plan: with fluids over load and pleural effusion, improving , was extubated , continue HD to remove more fluids as tolerated , monitor CXR. (5) SCARLET (acute kidney injury) Assessment & Plan: required HD , has mild improvement in her urine output, nephrology is following, monitor UOP (6) DKA (diabetic ketoacidoses) Assessment & Plan: due to poorly controlled diabetes and sepsis, S/P insulin drip in the ICU , continue close monitor of her blood glucose to keep between 80 -120 (7) Leg wound, left Assessment & Plan: with infection due to staph aureus and klebsiella oxytoca, already on meropenem and zyvox , continue local wound care as per hospital protocol , bone scan to rule out underlying osteomyelitis is being done today Subjective Constitutional: Reports: no symptoms HEENT: Reports: no symptoms Respiratory: Reports: no symptoms Breasts: Reports: no symptoms Cardiovascular: Reports: no symptoms Gastrointestinal/Abdominal: Reports: no symptoms Genitourinary: Reports: no symptoms Neurologic: Reports: no symptoms Psychiatric: Reports: no symptoms Skin: Reports: no symptoms Endocrine: Reports: no symptoms Hematologic: Reports: no symptoms Musculoskeletal: Reports: no symptoms Allergies: Coded Allergies: LATEX (Verified Allergy, Unknown, skin rash, 08/12/17) PENICILLINS (Verified Allergy, Unknown, 07/30/17) According to mother, the patient is allergic to Penicillins Subjective she was awake and responsive. denied any pain , no fever or chills today. has less lymphedema in her lower abdomen skin and less redness. mild left groin lymphadenopathy small skin breaks drying out at the folds site . Objective Vital Signs Last 24 Hour Vital Signs Date Time Temp Pulse Resp B/P (MAP) Pulse Ox O2 Delivery O2 Flow Rate FiO2 08/12/17 12:40 98.7 94 22 155/76 96 Nasal Cannula 4.0 98.7 08/12/17 12:00 95 08/12/17 11:00 92 30 166/71 92 Nasal Cannula 4.0 08/12/17 10:00 93 24 149/78 92 Nasal Cannula 4.0 08/12/17 09:00 97 20 125/65 92 Nasal Cannula 4.0 08/12/17 08:18 96 Nasal Cannula 4.0 36 08/12/17 08:18 Nasal Cannula 4.0 36 08/12/17 08:00 98.6 102 24 123/71 97 Nasal Cannula 4.0 98.6 08/12/17 08:00 96 08/12/17 07:00 94 30 126/82 95 Mechanical Ventilator 4.0 08/12/17 06:00 98.4 89 22 108/58 94 Mechanical Ventilator 4.0 98.4 08/12/17 05:00 93 24 115/57 92 Mechanical Ventilator 4.0 08/12/17 04:00 95 30 130/67 92 Mechanical Ventilator 4.0 08/12/17 04:00 92 08/12/17 03:00 94 30 128/81 91 Mechanical Ventilator 4.0 08/12/17 02:00 94 30 124/70 94 Mechanical Ventilator 4.0 08/12/17 01:30 107/62 08/12/17 01:00 94 30 121/68 94 Mechanical Ventilator 4.0 08/12/17 00:00 98.7 92 27 127/65 93 Mechanical Ventilator 4.0 98.7 08/12/17 00:00 92 08/11/17 23:00 90 31 118/72 93 Mechanical Ventilator 4.0 08/11/17 22:00 96 22 122/59 94 Mechanical Ventilator 4.0 08/11/17 21:00 100 28 120/63 92 Mechanical Ventilator 4.0 08/11/17 20:00 98.8 104 33 111/53 91 Mechanical Ventilator 4.0 98.8 08/11/17 20:00 102 08/11/17 19:18 93 Nasal Cannula 4.0 36 08/11/17 19:18 Nasal Cannula 4.0 36 08/11/17 19:00 99.3 102 31 112/67 95 Mechanical Ventilator 4.0 99.3 08/11/17 18:00 102 31 137/74 96 Mechanical Ventilator 4.0 08/11/17 17:00 100 24 130/73 96 Mechanical Ventilator 4.0 08/11/17 16:00 4.0 08/11/17 16:00 98 21 121/57 91 Mechanical Ventilator 4.0 08/11/17 15:00 89 28 92/73 94 Mechanical Ventilator 4.0 08/11/17 14:00 99.2 95 35 117/56 91 Mechanical Ventilator 4.0 99.2 Height (Feet): 5 Height (Inches): 5.00 Weight (Pounds): 321 General Appearance: WD/WN, no acute distress, other - morbedly obese HEENT: normocephalic, atraumatic, anicteric, mucous membranes moist, PERRL Respiratory/Chest: chest wall non-tender, no respiratory distress, no accessory muscle use, decreased breath sounds, crackles/rales Breasts: no masses Cardiovascular: normal peripheral pulses, normal rate, regular rhythm, no gallop/murmur, no JVD Abdomen: normal bowel sounds, soft, non tender, no organomegaly, non distended , no mass, no scars Extremities: no cyanosis, no clubbing Skin: no rash, no lesions, ulcers - at the folds site and on the left leg above the ankle Neurologic/Psychiatric: alert, oriented x 3, responsive Lymphatic: no neck adenopathy Microbiology Date/Time Source Procedure Growth Status 08/10/17 16:00 Femoral Left Catheter Tip Culture - Preliminary NO GROWTH AFTER 24 HOURS Resulted Laboratory Tests Test 08/12/17 04:10 White Blood Count 9.2 K/UL (4.8-10.8) Red Blood Count 3.29 M/UL (4.20-5.40) L Hemoglobin 7.6 G/DL (12.0-16.0) L Hematocrit 24.1 % (37.0-47.0) L Mean Corpuscular Volume 73 FL (80-99) L Mean Corpuscular Hemoglobin 23.1 PG (27.0-31.0) L Mean Corpuscular Hemoglobin Concent 31.6 G/DL (32.0-36.0) L Red Cell Distribution Width 18.6 % (11.6-14.8) H Platelet Count 312 K/UL (150-450) Mean Platelet Volume 6.0 FL (6.5-10.1) L Neutrophils (%) (Auto) % (45.0-75.0) Lymphocytes (%) (Auto) % (20.0-45.0) Monocytes (%) (Auto) % (1.0-10.0) Eosinophils (%) (Auto) % (0.0-3.0) Basophils (%) (Auto) % (0.0-2.0) Differential Total Cells Counted 100 Neutrophils % (Manual) 83 % (45-75) H Lymphocytes % (Manual) 11 % (20-45) L Monocytes % (Manual) 2 % (1-10) Eosinophils % (Manual) 2 % (0-3) Basophils % (Manual) 1 % (0-2) Band Neutrophils 1 % (0-8) Platelet Estimate Adequate Platelet Morphology Normal Hypochromasia 2+ Anisocytosis 2+ Microcytosis 1+ Stomatocytes Occasional Sodium Level 142 MMOL/L (136-145) Potassium Level 4.0 MMOL/L (3.5-5.1) Chloride Level 106 MMOL/L (98-107) Carbon Dioxide Level 30 MMOL/L (21-32) Anion Gap 6 mmol/L (5-15) Blood Urea Nitrogen 49 mg/dL (7-18) H Creatinine 4.5 MG/DL (0.55-1.30) H Estimat Glomerular Filtration Rate 10.5 mL/min (>60) Glucose Level 123 MG/DL (74-106) H Calcium Level 8.5 MG/DL (8.5-10.1) Ionized Calcium (Measured) 1.10 mmol/L (1.10-1.35) Phosphorus Level 5.1 MG/DL (2.5-4.9) H Magnesium Level 2.2 MG/DL (1.8-2.4) Current Medications Medications (Trade) Dose Ordered Sig/Tommy Route PRN Reason Start Time Stop Time Status Last Admin Dose Admin Acetaminophen (Tylenol) 650 mg EVERY 6 HOURS PRN RECTAL Prn pain/Temp > 100.5 08/08/17 06:00 09/05/17 19:57 Acetaminophen (Tylenol) 650 mg Q4H PRN NG Mild Pain/Temp > 100.5 08/08/17 21:00 09/07/17 20:59 08/09/17 07:10 Chlorhexidine Gluconate (Idalia-Hex 2%) 1 applic DAILY@2000 TOPIC 08/09/17 20:00 09/08/17 19:59 08/11/17 20:05 Clotrimazole (Lotrimin) 1 applic NEEDED TOPIC 08/08/17 05:30 09/07/17 05:29 Dextrose (Dextrose 50%) 25 ml STAT PRN IV Hypoglycemia 08/08/17 20:00 09/05/17 19:57 Dextrose (Dextrose 50%) 50 ml STAT PRN IV Hypoglycemia 08/08/17 20:00 09/05/17 19:57 Heparin Sodium (Porcine) (Heparin 5000 units/ml) 5,000 units Q8H SUBQ 08/08/17 07:00 09/05/17 14:59 08/12/17 06:53 Insulin Aspart (NovoLOG) BEFORE MEALS AND HS SUBQ 08/12/17 11:30 09/11/17 11:29 08/12/17 11:41 Insulin Detemir (Levemir) 16 units Q12HR SUBQ 08/12/17 09:00 09/06/17 08:59 08/12/17 09:19 Linezolid 300 ml @ 300 mls/hr Q12HR IVPB 08/08/17 09:00 08/14/17 08:59 08/12/17 09:18 Lorazepam (Ativan 2mg/ml 1ml) 2 mg Q4H PRN IV For Anxiety 08/08/17 01:00 08/12/17 20:59 08/08/17 23:30 Meropenem 500 mg/ Sodium Chloride 110 ml @ 220 mls/hr Q12HR IVPB 08/08/17 09:00 08/15/17 23:00 08/12/17 08:36 Norepinephrine Bitartrate 4 mg/ Dextrose 250 ml @ 0 mls/hr Q24H IV 08/08/17 01:30 09/07/17 01:29 08/08/17 01:41 Pantoprazole (Protonix) 40 mg BID IVP 5/15/18 18:00 09/06/17 08:59 08/12/17 08:35 Silver Sulfadiazine (Silvadene Cream 25gm) 1 applic DAILY TOPIC 08/08/17 09:00 08/31/17 10:29 08/12/17 08:36 Johanny Colbert M.D. August 12, 2017 13:43
--- NOTE | 2017-08-12 15:33 | Cardiac Electrophysiology PN ---
Assessment/Plan Assessment/Plan 1. S/P Septic shock due to diabetic ketoacidosis. On broad-spectrum IV antibiotic. Off pressors Echocardiogram showed EF 60%. Rule out for PA 2. Diabetic ketoacidosis, on IV fluids and insulin. 3. S/P Cardiac arrest needing atropine. Due to respiratory failure. Now in SR 4. White count of 36,000, abdominal cellulitis, likely because of the patient's DKA. IV antibiotic per Dr. Colbert. 5. Morbid obesity. 6. Respiratory failure, reextubated yesterday 7. ARF on HD now via Right IJ. HD pending today again. 8. Anemia hb 6.9. Transfused 2 units. Now around 8 9. Severe hyponatremia, sodium 118, Resolved now 140s 10. Dysphagia, passed swallow eval and now advancing her diet DW RN Subjective Subjective In ICU alert and off pressors. Extubated and eating well. Expecting HD today Objective Last 24 Hour Vital Signs Date Time Temp Pulse Resp B/P (MAP) Pulse Ox O2 Delivery O2 Flow Rate FiO2 08/12/17 15:00 95 27 145/69 92 Nasal Cannula 4.0 08/12/17 14:00 91 27 160/88 91 Nasal Cannula 4.0 08/12/17 13:00 94 24 153/73 97 Nasal Cannula 4.0 08/12/17 12:40 98.7 94 22 155/76 96 Nasal Cannula 4.0 98.7 08/12/17 12:00 95 08/12/17 11:00 92 30 166/71 92 Nasal Cannula 4.0 08/12/17 10:00 93 24 149/78 92 Nasal Cannula 4.0 08/12/17 09:00 97 20 125/65 92 Nasal Cannula 4.0 08/12/17 08:18 96 Nasal Cannula 4.0 36 08/12/17 08:18 Nasal Cannula 4.0 36 08/12/17 08:00 98.6 102 24 123/71 97 Nasal Cannula 4.0 98.6 08/12/17 08:00 96 08/12/17 07:00 94 30 126/82 95 Mechanical Ventilator 4.0 08/12/17 06:00 98.4 89 22 108/58 94 Mechanical Ventilator 4.0 98.4 08/12/17 05:00 93 24 115/57 92 Mechanical Ventilator 4.0 08/12/17 04:00 95 30 130/67 92 Mechanical Ventilator 4.0 08/12/17 04:00 92 08/12/17 03:00 94 30 128/81 91 Mechanical Ventilator 4.0 08/12/17 02:00 94 30 124/70 94 Mechanical Ventilator 4.0 08/12/17 01:30 107/62 08/12/17 01:00 94 30 121/68 94 Mechanical Ventilator 4.0 08/12/17 00:00 98.7 92 27 127/65 93 Mechanical Ventilator 4.0 98.7 08/12/17 00:00 92 08/11/17 23:00 90 31 118/72 93 Mechanical Ventilator 4.0 08/11/17 22:00 96 22 122/59 94 Mechanical Ventilator 4.0 08/11/17 21:00 100 28 120/63 92 Mechanical Ventilator 4.0 08/11/17 20:00 98.8 104 33 111/53 91 Mechanical Ventilator 4.0 98.8 08/11/17 20:00 102 08/11/17 19:18 93 Nasal Cannula 4.0 36 08/11/17 19:18 Nasal Cannula 4.0 36 08/11/17 19:00 99.3 102 31 112/67 95 Mechanical Ventilator 4.0 99.3 08/11/17 18:00 102 31 137/74 96 Mechanical Ventilator 4.0 08/11/17 17:00 100 24 130/73 96 Mechanical Ventilator 4.0 08/11/17 16:00 4.0 08/11/17 16:00 98 21 121/57 91 Mechanical Ventilator 4.0 Intake and Output 08/11/17 08/12/17 19:00 07:00 Intake Total 990 ml 890 ml Output Total 665 ml 680 ml Balance 325 ml 210 ml Free Water 100 ml IV Total 410 ml 410 ml Tube Feeding 480 ml 480 ml Output Urine Total 665 ml 680 ml # Bowel Movements 1 Laboratory Tests Test 08/12/17 04:10 White Blood Count 9.2 K/UL (4.8-10.8) Red Blood Count 3.29 M/UL (4.20-5.40) L Hemoglobin 7.6 G/DL (12.0-16.0) L Hematocrit 24.1 % (37.0-47.0) L Mean Corpuscular Volume 73 FL (80-99) L Mean Corpuscular Hemoglobin 23.1 PG (27.0-31.0) L Mean Corpuscular Hemoglobin Concent 31.6 G/DL (32.0-36.0) L Red Cell Distribution Width 18.6 % (11.6-14.8) H Platelet Count 312 K/UL (150-450) Mean Platelet Volume 6.0 FL (6.5-10.1) L Neutrophils (%) (Auto) % (45.0-75.0) Lymphocytes (%) (Auto) % (20.0-45.0) Monocytes (%) (Auto) % (1.0-10.0) Eosinophils (%) (Auto) % (0.0-3.0) Basophils (%) (Auto) % (0.0-2.0) Differential Total Cells Counted 100 Neutrophils % (Manual) 83 % (45-75) H Lymphocytes % (Manual) 11 % (20-45) L Monocytes % (Manual) 2 % (1-10) Eosinophils % (Manual) 2 % (0-3) Basophils % (Manual) 1 % (0-2) Band Neutrophils 1 % (0-8) Platelet Estimate Adequate Platelet Morphology Normal Hypochromasia 2+ Anisocytosis 2+ Microcytosis 1+ Stomatocytes Occasional Sodium Level 142 MMOL/L (136-145) Potassium Level 4.0 MMOL/L (3.5-5.1) Chloride Level 106 MMOL/L (98-107) Carbon Dioxide Level 30 MMOL/L (21-32) Anion Gap 6 mmol/L (5-15) Blood Urea Nitrogen 49 mg/dL (7-18) H Creatinine 4.5 MG/DL (0.55-1.30) H Estimat Glomerular Filtration Rate 10.5 mL/min (>60) Glucose Level 123 MG/DL (74-106) H Calcium Level 8.5 MG/DL (8.5-10.1) Ionized Calcium (Measured) 1.10 mmol/L (1.10-1.35) Phosphorus Level 5.1 MG/DL (2.5-4.9) H Magnesium Level 2.2 MG/DL (1.8-2.4) Microbiology Date/Time Source Procedure Growth Status 08/10/17 16:00 Femoral Left Catheter Tip Culture - Preliminary NO GROWTH AFTER 24 HOURS Resulted Objective HEAD AND NECK: No JVD, NG tube is in. Right IJ Manjinder catheter LUNGS: Coarse rhonchi. CARDIOVASCULAR: Regular S1 and S2 with no gallop. ABDOMEN: Cellulitis of the lower abdomen and erythema. EXTREMITIES: 1+ pitting edema. Adama Trujillo MD August 12, 2017 15:33
--- NOTE | 2017-08-12 16:42 | Diagnostic Imaging Report ---
Indication: Left ankle chronic wound Technique: IV administration 26.1 mCi 99 M technetium MDP. Flow, blood pool, and static images obtained over the feet and ankles. Comparison: None. No plain radiographs are available Findings: Flow images demonstrate only very slight asymmetry of blood flow to the lower extremities, with the left lower extremity demonstrating minimally greater flow. Minimal to no asymmetry is seen on the blood pool images. There is questionably some very slight superficial focal increased tracer activity in the distal lateral left leg on the blood pool images. Static images, there is suggestion of some increased activity in the region of the distal fibula. Similar increased activity is seen in the region of the distal right fibula although this is less striking than on the left. Impression: Somewhat increased increased static activity in the distal fibula on the static images, without definite corresponding abnormality on the flow or blood pool images. This is nonspecific, particularly in the absence of correlate with plain radiographs, could represent degenerative or posttraumatic change, or could represent indolent osteomyelitis changes. Recommend plain radiographs of the ankle to better characterize
[2017-08-12] MEDS: Dyna-Hex 2% Top Sol 2oz TOPIC SCH (20:56)
[2017-08-13] VITALS (15 sets, daily range): BP systolic 117–155; BP diastolic 70–93
[2017-08-13 05:11] LABS: HEMOGLOBIN 7.5 G/DL (12.0-16.0); MEAN CORPUSCULAR VOLUME 73 FL (80-99); PLATELET COUNT 355 K/UL (150-450); RED BLOOD COUNT 3.28 M/UL (4.20-5.40); WHITE BLOOD COUNT 8.2 K/UL (4.8-10.8)
[2017-08-13 05:53] LABS: ANION GAP 7 mmol/L (5-15); BLOOD UREA NITROGEN 36 mg/dL (7-18); CALCIUM 7.8 MG/DL (8.5-10.1); CARBON DIOXIDE 31 MMOL/L (21-32); CHLORIDE 104 MMOL/L (98-107); CREATININE 3.5 MG/DL (0.55-1.30); POTASSIUM 3.6 MMOL/L (3.5-5.1); SODIUM 142 MMOL/L (136-145)
[2017-08-13] MEDS: NovoLOG Insulin Flexpen SUBQ SCH ×4 (06:02→21:02)
[2017-08-13] MEDS: Heparin 5000 units/ml inj SUBQ SCH ×3 (06:08→23:06)
--- NOTE | 2017-08-13 06:36 | General Progress Note ---
Assessment/Plan Problem List: (1) Cellulitis of abdominal wall ICD Codes: L03.311 - Cellulitis of abdominal wall SNOMED: 11651812 (2) Acute respiratory failure ICD Codes: J96.00 - Acute respiratory failure, unspecified whether with hypoxia or hypercapnia SNOMED: 41482821 (3) New onset type 1 diabetes mellitus, uncontrolled ICD Codes: E10.65 - Type 1 diabetes mellitus with hyperglycemia SNOMED: 543587816 (4) Necrotizing fasciitis ICD Codes: M72.6 - Necrotizing fasciitis SNOMED: 37627265 (5) DKA (diabetic ketoacidoses) ICD Codes: E13.10 - Other specified diabetes mellitus with ketoacidosis without coma SNOMED: 05905163, 737278419 Assessment/Plan reduce Levemir to 10 units bid continue NISS ac / hs Subjective Allergies: Coded Allergies: LATEX (Verified Allergy, Unknown, skin rash, 08/12/17) PENICILLINS (Verified Allergy, Unknown, 07/30/17) According to mother, the patient is allergic to Penicillins All Systems: reviewed and negative except above Subjective events noted - still in ICU Objective Last 24 Hour Vital Signs Date Time Temp Pulse Resp B/P (MAP) Pulse Ox O2 Delivery O2 Flow Rate FiO2 08/13/17 05:00 84 27 144/93 96 Venturi Mask 8.0 40 08/13/17 04:00 88 08/13/17 04:00 98.7 85 23 147/70 94 Venturi Mask 8.0 40 98.7 08/13/17 03:00 85 26 153/74 93 Venturi Mask 8.0 40 08/13/17 02:00 87 26 130/72 91 Venturi Mask 8.0 40 08/13/17 01:30 138/70 08/13/17 01:00 93 26 138/70 91 Venturi Mask 8.0 40 08/13/17 00:00 99.1 89 26 139/71 91 Venturi Mask 8.0 40 99.1 08/13/17 00:00 93 08/12/17 23:00 92 26 141/75 93 Venturi Mask 8.0 40 08/12/17 22:00 90 29 137/94 94 Venturi Mask 8.0 40 08/12/17 21:00 93 25 156/71 93 Nasal Cannula 4.0 08/12/17 20:16 Room Air 3.5 08/12/17 20:15 99.0 92 28 143/71 Nasal Cannula 3.5 99.0 08/12/17 20:00 99.0 89 22 138/62 93 Nasal Cannula 4.0 99.0 08/12/17 20:00 89 08/12/17 19:26 Nasal Cannula 4.0 36 08/12/17 19:26 94 Nasal Cannula 4.0 36 08/12/17 19:00 89 22 134/64 92 Nasal Cannula 6.0 08/12/17 18:00 99.4 90 22 143/68 95 Nasal Cannula 4.0 99.4 08/12/17 17:20 Nasal Cannula 3.5 08/12/17 17:00 99.4 88 28 138/63 3.5 99.4 08/12/17 17:00 96 22 139/96 100 Nasal Cannula 6.0 08/12/17 16:00 102 08/12/17 15:00 95 27 145/69 92 Nasal Cannula 4.0 08/12/17 14:00 91 27 160/88 91 Nasal Cannula 4.0 08/12/17 13:00 94 24 153/73 97 Nasal Cannula 4.0 08/12/17 12:40 98.7 94 22 155/76 96 Nasal Cannula 4.0 98.7 08/12/17 12:00 95 08/12/17 11:00 92 30 166/71 92 Nasal Cannula 4.0 08/12/17 10:00 93 24 149/78 92 Nasal Cannula 4.0 08/12/17 09:00 97 20 125/65 92 Nasal Cannula 4.0 08/12/17 08:18 96 Nasal Cannula 4.0 36 08/12/17 08:18 Nasal Cannula 4.0 36 08/12/17 08:00 98.6 102 24 123/71 97 Nasal Cannula 4.0 98.6 08/12/17 08:00 96 08/12/17 07:00 94 30 126/82 95 Mechanical Ventilator 4.0 Intake and Output 08/12/17 08/13/17 19:00 07:00 Intake Total 560 ml 410 ml Output Total 1390 ml 3475 ml Balance -830 ml -3065 ml IV Total 520 ml 410 ml Tube Feeding 40 ml Output Urine Total 1390 ml 475 ml Hemodialysis UF 3000 ml # Bowel Movements 2 2 Laboratory Tests 08/13/17 04:50: White Blood Count 8.2, Red Blood Count 3.28L, Hemoglobin 7.5L, Hematocrit 24.0L , Mean Corpuscular Volume 73L, Mean Corpuscular Hemoglobin 22.8L, Mean Corpuscular Hemoglobin Concent 31.1L, Red Cell Distribution Width 19.0H, Platelet Count 355, Mean Platelet Volume 5.5L, Neutrophils (%) (Auto) , Lymphocytes (%) (Auto) , Monocytes (%) (Auto) , Eosinophils (%) (Auto) , Basophils (%) (Auto) , Neutrophils % (Manual) [Pending], Lymphocytes % (Manual) [Pending], Platelet Estimate [Pending], Platelet Morphology [Pending], Sodium Level 142, Potassium Level 3.6, Chloride Level 104, Carbon Dioxide Level 31, Anion Gap 7, Blood Urea Nitrogen 36H, Creatinine 3.5H, Estimat Glomerular Filtration Rate 13.9, Glucose Level 73L, Calcium Level 7.8L Height (Feet): 5 Height (Inches): 5.00 Weight (Pounds): 321 General Appearance: no apparent distress Neck: normal alignment Cardiovascular: normal peripheral pulses Respiratory/Chest: decreased breath sounds Abdomen: normal bowel sounds Edema: 1+ Arm (L), 1+ Arm (R), 1+ Leg (L), 1+ Leg (R), 1+ Pedal (L), 1+ Pedal ( R), 1+ Generalized Objective Current Medications Medications (Trade) Dose Ordered Sig/Tommy Route PRN Reason Start Time Stop Time Status Last Admin Dose Admin Acetaminophen (Tylenol) 650 mg EVERY 6 HOURS PRN RECTAL Prn pain/Temp > 100.5 08/08/17 06:00 09/05/17 19:57 Acetaminophen (Tylenol) 650 mg Q4H PRN NG Mild Pain/Temp > 100.5 08/08/17 21:00 09/07/17 20:59 08/09/17 07:10 Chlorhexidine Gluconate (Idalia-Hex 2%) 1 applic DAILY@2000 TOPIC 08/09/17 20:00 09/08/17 19:59 08/12/17 20:56 Clotrimazole (Lotrimin) 1 applic NEEDED TOPIC 08/08/17 05:30 09/07/17 05:29 Dextrose (Dextrose 50%) 25 ml STAT PRN IV Hypoglycemia 08/08/17 20:00 09/05/17 19:57 Dextrose (Dextrose 50%) 50 ml STAT PRN IV Hypoglycemia 08/08/17 20:00 09/05/17 19:57 Heparin Sodium (Porcine) (Heparin 5000 units/ml) 5,000 units Q8H SUBQ 08/08/17 07:00 09/05/17 14:59 08/13/17 06:08 Insulin Aspart (NovoLOG) BEFORE MEALS AND HS SUBQ 08/12/17 11:30 09/11/17 11:29 08/12/17 16:43 Insulin Detemir (Levemir) 16 units Q12HR SUBQ 08/12/17 09:00 09/06/17 08:59 08/12/17 20:57 Linezolid 300 ml @ 300 mls/hr Q12HR IVPB 08/08/17 09:00 08/14/17 08:59 08/12/17 20:56 Meropenem 500 mg/ Sodium Chloride 110 ml @ 220 mls/hr Q12HR IVPB 08/08/17 09:00 08/15/17 23:00 08/12/17 20:56 Norepinephrine Bitartrate 4 mg/ Dextrose 250 ml @ 0 mls/hr Q24H IV 08/08/17 01:30 09/07/17 01:29 08/08/17 01:41 Pantoprazole (Protonix) 40 mg BID IVP 08/09/17 18:00 09/06/17 08:59 08/12/17 08:35 Silver Sulfadiazine (Silvadene Cream 25gm) 1 applic DAILY TOPIC 08/08/17 09:00 08/31/17 10:29 08/12/17 08:36 Item Value Date Time Bedside Blood Glucose 74 mg/dl 08/13/17 0602 Bedside Blood Glucose 85 mg/dl 08/12/17 2100 Bedside Blood Glucose 124 mg/dl H 08/12/17 1643 Bedside Blood Glucose 184 mg/dl H 08/12/17 1141 Bedside Blood Glucose 184 mg/dl H 08/12/17 0919 SAQIB TOM August 13, 2017 06:36
--- NOTE | 2017-08-13 08:00 | Nephrology Progress Note ---
Assessment/Plan Assessment/Plan 1. SCARLET- ATN non resolving. Will hold HD for the weekend and monitor residual renal function - multifact ATN (sepsis induced inflammotory cytokine prox tub damage/ ishchemic ATN hypotension/vol dep) 2. DKA/Met Acidosis - resolved 3. Septic Shock- etiology likely from abd cellulitis. Abx mgmt per ID. - off pressors and much improved 4. Hypotension- resolved 5. Resp FL- extubated 6. Hypok+/Ca/Phos- replace prn. 7. Anemia- When stable GI anticipates procedure. -PRN Bld tx Subjective Date patient seen: August 13, 2017 Time patient seen: 07:58 ROS Limited/Unobtainable: No Constitutional: Reports: weakness Allergies: Coded Allergies: LATEX (Verified Allergy, Unknown, skin rash, 08/12/17) PENICILLINS (Verified Allergy, Unknown, 07/30/17) According to mother, the patient is allergic to Penicillins All Systems: reviewed and negative except above Subjective Patient extubated and eating. Improving Objective Last 24 Hour Vital Signs Date Time Temp Pulse Resp B/P (MAP) Pulse Ox O2 Delivery O2 Flow Rate FiO2 08/13/17 07:56 Venturi Mask 8.0 40 08/13/17 07:56 96 Venturi Mask 8.0 40 08/13/17 07:00 83 24 118/72 99 Venturi Mask 8.0 40 08/13/17 06:00 81 27 138/81 93 Venturi Mask 8.0 40 08/13/17 05:00 84 27 144/93 96 Venturi Mask 8.0 40 08/13/17 04:00 88 08/13/17 04:00 98.7 85 23 147/70 94 Venturi Mask 8.0 40 98.7 08/13/17 03:00 85 26 153/74 93 Venturi Mask 8.0 40 08/13/17 02:00 87 26 130/72 91 Venturi Mask 8.0 40 08/13/17 01:30 138/70 08/13/17 01:00 93 26 138/70 91 Venturi Mask 8.0 40 08/13/17 00:00 99.1 89 26 139/71 91 Venturi Mask 8.0 40 99.1 08/13/17 00:00 93 08/12/17 23:00 92 26 141/75 93 Venturi Mask 8.0 40 08/12/17 22:00 90 29 137/94 94 Venturi Mask 8.0 40 08/12/17 21:00 93 25 156/71 93 Nasal Cannula 4.0 08/12/17 20:16 Room Air 3.5 08/12/17 20:15 99.0 92 28 143/71 Nasal Cannula 3.5 99.0 08/12/17 20:00 99.0 89 22 138/62 93 Nasal Cannula 4.0 99.0 08/12/17 20:00 89 08/12/17 19:26 Nasal Cannula 4.0 36 08/12/17 19:26 94 Nasal Cannula 4.0 36 08/12/17 19:00 89 22 134/64 92 Nasal Cannula 6.0 08/12/17 18:00 99.4 90 22 143/68 95 Nasal Cannula 4.0 99.4 08/12/17 17:20 Nasal Cannula 3.5 08/12/17 17:00 99.4 88 28 138/63 3.5 99.4 08/12/17 17:00 96 22 139/96 100 Nasal Cannula 6.0 08/12/17 16:00 102 08/12/17 15:00 95 27 145/69 92 Nasal Cannula 4.0 08/12/17 14:00 91 27 160/88 91 Nasal Cannula 4.0 08/12/17 13:00 94 24 153/73 97 Nasal Cannula 4.0 08/12/17 12:40 98.7 94 22 155/76 96 Nasal Cannula 4.0 98.7 08/12/17 12:00 95 08/12/17 11:00 92 30 166/71 92 Nasal Cannula 4.0 08/12/17 10:00 93 24 149/78 92 Nasal Cannula 4.0 08/12/17 09:00 97 20 125/65 92 Nasal Cannula 4.0 08/12/17 08:18 96 Nasal Cannula 4.0 36 08/12/17 08:18 Nasal Cannula 4.0 36 08/12/17 08:00 98.6 102 24 123/71 97 Nasal Cannula 4.0 98.6 08/12/17 08:00 96 Intake and Output 08/12/17 08/13/17 19:00 07:00 Intake Total 560 ml 410 ml Output Total 1390 ml 3475 ml Balance -830 ml -3065 ml IV Total 520 ml 410 ml Tube Feeding 40 ml Output Urine Total 1390 ml 475 ml Hemodialysis UF 3000 ml # Bowel Movements 2 2 Laboratory Tests 08/13/17 04:50: White Blood Count 8.2, Red Blood Count 3.28L, Hemoglobin 7.5L, Hematocrit 24.0L , Mean Corpuscular Volume 73L, Mean Corpuscular Hemoglobin 22.8L, Mean Corpuscular Hemoglobin Concent 31.1L, Red Cell Distribution Width 19.0H, Platelet Count 355, Mean Platelet Volume 5.5L, Neutrophils (%) (Auto) , Lymphocytes (%) (Auto) , Monocytes (%) (Auto) , Eosinophils (%) (Auto) , Basophils (%) (Auto) , Neutrophils % (Manual) [Pending], Lymphocytes % (Manual) [Pending], Platelet Estimate [Pending], Platelet Morphology [Pending], Sodium Level 142, Potassium Level 3.6, Chloride Level 104, Carbon Dioxide Level 31, Anion Gap 7, Blood Urea Nitrogen 36H, Creatinine 3.5H, Estimat Glomerular Filtration Rate 13.9, Glucose Level 73L, Calcium Level 7.8L Height (Feet): 5 Height (Inches): 5.00 Weight (Pounds): 319 General Appearance: WD/WN, no apparent distress EENT: PERRL/EOMI, normal ENT inspection Neck: normal alignment, supple Cardiovascular: normal rate, regular rhythm Respiratory/Chest: lungs clear, normal breath sounds Abdomen: non tender, soft Edema: 1+ Arm (L), 1+ Arm (R), 1+ Leg (L), 1+ Leg (R), 1+ Pedal (L), 1+ Pedal ( R), 1+ Generalized Carlton Guzmán M.D. August 13, 2017 08:00
[2017-08-13] MEDS: Meropenem 500 MG in NS 110 ML IVPB SCH ×2 (08:38→21:41)
[2017-08-13] MEDS: Pantoprazole Inj IVP SCH ×2 (08:38→17:29)
[2017-08-13] MEDS: Levemir Flexpen SUBQ SCH (08:39)
--- NOTE | 2017-08-13 10:43 | Pulmonology Progress Note ---
Assessment/Plan Assessment/Plan respiratory failure s/p extubation and now with reintubation DKA sepsis abd wall cellulitis fluid overload effusions and edema anemia PLAN vent support off as able BIPAP QHS encouraged but refused stable off vent for now keep negative monitor ABG monitor for change and recommend from pulm standpoint ICU care overnight; monitor acid base patient critical Subjective Allergies: Coded Allergies: LATEX (Verified Allergy, Unknown, skin rash, 08/12/17) PENICILLINS (Verified Allergy, Unknown, 07/30/17) According to mother, the patient is allergic to Penicillins Subjective off vent- BIPAP overnight refused d/w RN care noted Objective Last 24 Hour Vital Signs Date Time Temp Pulse Resp B/P (MAP) Pulse Ox O2 Delivery O2 Flow Rate FiO2 08/13/17 09:00 83 23 117/75 97 Nasal Cannula 4.0 08/13/17 08:00 99.0 89 23 143/72 99 Venturi Mask 8.0 40 99.0 08/13/17 08:00 91 08/13/17 07:56 Venturi Mask 8.0 40 08/13/17 07:56 96 Venturi Mask 8.0 40 08/13/17 07:00 83 24 118/72 99 Venturi Mask 8.0 40 08/13/17 06:00 81 27 138/81 93 Venturi Mask 8.0 40 08/13/17 05:00 84 27 144/93 96 Venturi Mask 8.0 40 08/13/17 04:00 88 08/13/17 04:00 98.7 85 23 147/70 94 Venturi Mask 8.0 40 98.7 08/13/17 03:00 85 26 153/74 93 Venturi Mask 8.0 40 08/13/17 02:00 87 26 130/72 91 Venturi Mask 8.0 40 08/13/17 01:30 138/70 08/13/17 01:00 93 26 138/70 91 Venturi Mask 8.0 40 08/13/17 00:00 99.1 89 26 139/71 91 Venturi Mask 8.0 40 99.1 08/13/17 00:00 93 08/12/17 23:00 92 26 141/75 93 Venturi Mask 8.0 40 08/12/17 22:00 90 29 137/94 94 Venturi Mask 8.0 40 08/12/17 21:00 93 25 156/71 93 Nasal Cannula 4.0 08/12/17 20:16 Room Air 3.5 08/12/17 20:15 99.0 92 28 143/71 Nasal Cannula 3.5 99.0 08/12/17 20:00 99.0 89 22 138/62 93 Nasal Cannula 4.0 99.0 08/12/17 20:00 89 08/12/17 19:26 Nasal Cannula 4.0 36 08/12/17 19:26 94 Nasal Cannula 4.0 36 08/12/17 19:00 89 22 134/64 92 Nasal Cannula 6.0 08/12/17 18:00 99.4 90 22 143/68 95 Nasal Cannula 4.0 99.4 08/12/17 17:20 Nasal Cannula 3.5 08/12/17 17:00 99.4 88 28 138/63 3.5 99.4 08/12/17 17:00 96 22 139/96 100 Nasal Cannula 6.0 08/12/17 16:00 102 08/12/17 15:00 95 27 145/69 92 Nasal Cannula 4.0 08/12/17 14:00 91 27 160/88 91 Nasal Cannula 4.0 08/12/17 13:00 94 24 153/73 97 Nasal Cannula 4.0 08/12/17 12:40 98.7 94 22 155/76 96 Nasal Cannula 4.0 98.7 08/12/17 12:00 95 08/12/17 11:00 92 30 166/71 92 Nasal Cannula 4.0 Intake and Output 08/12/17 08/13/17 19:00 07:00 Intake Total 560 ml 410 ml Output Total 1390 ml 3475 ml Balance -830 ml -3065 ml IV Total 520 ml 410 ml Tube Feeding 40 ml Output Urine Total 1390 ml 475 ml Hemodialysis UF 3000 ml # Bowel Movements 2 2 Objective WDWN off vent and seems stable NAD reduced breath sounds bilaterally without rhonchi or wheeze [id number] without MRG NABS nontender no HSM no CC edema nonfocal Microbiology Date/Time Source Procedure Growth Status 08/10/17 16:00 Femoral Left Catheter Tip Culture - Preliminary NO GROWTH AFTER 48 HOURS Resulted Laboratory Tests 08/13/17 04:00: Arterial Blood pH 7.510H, Arterial Blood Partial Pressure CO2 40.0, Arterial Blood Partial Pressure O2 70.5L, Arterial Blood HCO3 32.0H, Arterial Blood Oxygen Saturation 93.4, Arterial Blood Base Excess 8.3, Ravi Test Positive 08/13/17 04:50: White Blood Count 8.2, Red Blood Count 3.28L, Hemoglobin 7.5L, Hematocrit 24.0L , Mean Corpuscular Volume 73L, Mean Corpuscular Hemoglobin 22.8L, Mean Corpuscular Hemoglobin Concent 31.1L, Red Cell Distribution Width 19.0H, Platelet Count 355, Mean Platelet Volume 5.5L, Neutrophils (%) (Auto) , Lymphocytes (%) (Auto) , Monocytes (%) (Auto) , Eosinophils (%) (Auto) , Basophils (%) (Auto) , Differential Total Cells Counted 100, Neutrophils % ( Manual) 80H, Lymphocytes % (Manual) 14L, Monocytes % (Manual) 4, Eosinophils % ( Manual) 2, Basophils % (Manual) 0, Band Neutrophils 0, Platelet Estimate Adequate, Platelet Morphology Normal, Hypochromasia 1+, Anisocytosis 1+, Microcytosis 1+, Sodium Level 142, Potassium Level 3.6, Chloride Level 104, Carbon Dioxide Level 31, Anion Gap 7, Blood Urea Nitrogen 36H, Creatinine 3.5H, Estimat Glomerular Filtration Rate 13.9, Glucose Level 73L, Calcium Level 7.8L Current Medications Medications (Trade) Dose Ordered Sig/Tommy Route PRN Reason Start Time Stop Time Status Last Admin Dose Admin Acetaminophen (Tylenol) 650 mg EVERY 6 HOURS PRN RECTAL Prn pain/Temp > 100.5 08/08/17 06:00 09/05/17 19:57 Acetaminophen (Tylenol) 650 mg Q4H PRN NG Mild Pain/Temp > 100.5 08/08/17 21:00 09/07/17 20:59 08/09/17 07:10 Chlorhexidine Gluconate (Idalia-Hex 2%) 1 applic DAILY@1999 TOPIC 08/09/17 20:00 09/08/17 19:59 08/12/17 20:56 Clotrimazole (Lotrimin) 1 applic NEEDED TOPIC 08/08/17 05:30 09/07/17 05:29 Dextrose (Dextrose 50%) 25 ml STAT PRN IV Hypoglycemia 08/08/17 20:00 09/05/17 19:57 Dextrose (Dextrose 50%) 50 ml STAT PRN IV Hypoglycemia 08/08/17 20:00 09/05/17 19:57 Heparin Sodium (Porcine) (Heparin 5000 units/ml) 5,000 units Q8H SUBQ 08/08/17 07:00 09/05/17 14:59 08/13/17 06:08 Insulin Aspart (NovoLOG) BEFORE MEALS AND HS SUBQ 08/12/17 11:30 09/11/17 11:29 08/12/17 16:43 Insulin Detemir (Levemir) 16 units Q12HR SUBQ 08/12/17 09:00 09/06/17 08:59 08/13/17 08:39 Linezolid 300 ml @ 300 mls/hr Q12HR IVPB 08/08/17 09:00 08/15/17 23:59 08/13/17 08:38 Meropenem 500 mg/ Sodium Chloride 110 ml @ 220 mls/hr Q12HR IVPB 08/08/17 09:00 08/15/17 23:00 08/13/17 08:38 Norepinephrine Bitartrate 4 mg/ Dextrose 250 ml @ 0 mls/hr Q24H IV 08/08/17 01:30 09/07/17 01:29 08/08/17 01:41 Pantoprazole (Protonix) 40 mg BID IVP 08/09/17 18:00 09/06/17 08:59 08/13/17 08:38 Silver Sulfadiazine (Silvadene Cream 25gm) 1 applic DAILY TOPIC 08/08/17 09:00 08/31/17 10:29 08/13/17 08:38 Stew Hopson MD August 13, 2017 10:43
--- NOTE | 2017-08-13 13:55 | General Progress Note ---
Assessment/Plan Assessment/Plan - Sepsis, improved - resp failure, resolved - DKA - abd wall cellulitis - obesity - Renal failure - Anemia >> OB (+)(-) - extubated today - ST evaluation reviewed Recommendations - FLD, adv as tolerated - ppi BID - elevated HOB - abx - follow labs and exam - check additional OB - transfuse PRN - fu labs Subjective ROS Limited/Unobtainable: Yes Allergies: Coded Allergies: LATEX (Verified Allergy, Unknown, skin rash, 08/12/17) PENICILLINS (Verified Allergy, Unknown, 07/30/17) According to mother, the patient is allergic to Penicillins Subjective extubated Objective Last 24 Hour Vital Signs Date Time Temp Pulse Resp B/P (MAP) Pulse Ox O2 Delivery O2 Flow Rate FiO2 08/13/17 12:00 90 08/13/17 11:00 98.7 88 21 121/74 95 Nasal Cannula 4.0 98.7 08/13/17 09:00 83 23 117/75 97 Nasal Cannula 4.0 08/13/17 08:00 99.0 89 23 143/72 99 Venturi Mask 8.0 40 99.0 08/13/17 08:00 91 08/13/17 07:56 Venturi Mask 8.0 40 08/13/17 07:56 96 Venturi Mask 8.0 40 08/13/17 07:00 83 24 118/72 99 Venturi Mask 8.0 40 08/13/17 06:00 81 27 138/81 93 Venturi Mask 8.0 40 08/13/17 05:00 84 27 144/93 96 Venturi Mask 8.0 40 08/13/17 04:00 88 08/13/17 04:00 98.7 85 23 147/70 94 Venturi Mask 8.0 40 98.7 08/13/17 03:00 85 26 153/74 93 Venturi Mask 8.0 40 08/13/17 02:00 87 26 130/72 91 Venturi Mask 8.0 40 08/13/17 01:30 138/70 08/13/17 01:00 93 26 138/70 91 Venturi Mask 8.0 40 08/13/17 00:00 99.1 89 26 139/71 91 Venturi Mask 8.0 40 99.1 08/13/17 00:00 93 08/12/17 23:00 92 26 141/75 93 Venturi Mask 8.0 40 08/12/17 22:00 90 29 137/94 94 Venturi Mask 8.0 40 08/12/17 21:00 93 25 156/71 93 Nasal Cannula 4.0 08/12/17 20:16 Room Air 3.5 08/12/17 20:15 99.0 92 28 143/71 Nasal Cannula 3.5 99.0 08/12/17 20:00 99.0 89 22 138/62 93 Nasal Cannula 4.0 99.0 08/12/17 20:00 89 08/12/17 19:26 Nasal Cannula 4.0 36 08/12/17 19:26 94 Nasal Cannula 4.0 36 08/12/17 19:00 89 22 134/64 92 Nasal Cannula 6.0 08/12/17 18:00 99.4 90 22 143/68 95 Nasal Cannula 4.0 99.4 08/12/17 17:20 Nasal Cannula 3.5 08/12/17 17:00 99.4 88 28 138/63 3.5 99.4 08/12/17 17:00 96 22 139/96 100 Nasal Cannula 6.0 08/12/17 16:00 102 08/12/17 15:00 95 27 145/69 92 Nasal Cannula 4.0 08/12/17 14:00 91 27 160/88 91 Nasal Cannula 4.0 Intake and Output 08/12/17 08/13/17 19:00 07:00 Intake Total 560 ml 410 ml Output Total 1390 ml 3475 ml Balance -830 ml -3065 ml IV Total 520 ml 410 ml Tube Feeding 40 ml Output Urine Total 1390 ml 475 ml Hemodialysis UF 3000 ml # Bowel Movements 2 2 Laboratory Tests 08/13/17 04:00: Arterial Blood pH 7.510H, Arterial Blood Partial Pressure CO2 40.0, Arterial Blood Partial Pressure O2 70.5L, Arterial Blood HCO3 32.0H, Arterial Blood Oxygen Saturation 93.4, Arterial Blood Base Excess 8.3, Ravi Test Positive 08/13/17 04:50: White Blood Count 8.2, Red Blood Count 3.28L, Hemoglobin 7.5L, Hematocrit 24.0L , Mean Corpuscular Volume 73L, Mean Corpuscular Hemoglobin 22.8L, Mean Corpuscular Hemoglobin Concent 31.1L, Red Cell Distribution Width 19.0H, Platelet Count 355, Mean Platelet Volume 5.5L, Neutrophils (%) (Auto) , Lymphocytes (%) (Auto) , Monocytes (%) (Auto) , Eosinophils (%) (Auto) , Basophils (%) (Auto) , Differential Total Cells Counted 100, Neutrophils % ( Manual) 80H, Lymphocytes % (Manual) 14L, Monocytes % (Manual) 4, Eosinophils % ( Manual) 2, Basophils % (Manual) 0, Band Neutrophils 0, Platelet Estimate Adequate, Platelet Morphology Normal, Hypochromasia 1+, Anisocytosis 1+, Microcytosis 1+, Sodium Level 142, Potassium Level 3.6, Chloride Level 104, Carbon Dioxide Level 31, Anion Gap 7, Blood Urea Nitrogen 36H, Creatinine 3.5H, Estimat Glomerular Filtration Rate 13.9, Glucose Level 73L, Calcium Level 7.8L Height (Feet): 5 Height (Inches): 5.00 Weight (Pounds): 319 General Appearance: no apparent distress EENT: normal ENT inspection Neck: supple Cardiovascular: normal rate Respiratory/Chest: decreased breath sounds Abdomen: normal bowel sounds, non tender, soft Extremities: non-tender Gianni Hernandez MD August 13, 2017 13:55
--- NOTE | 2017-08-13 14:40 | Infectious Diseases Prog Note ---
Assessment/Plan Problems: (1) Cellulitis of abdominal wall Assessment & Plan: complicated with panniculitis, now improving with aggressive HD , to improve her lymphedema , will continue meropenem and zyvox empiric coverage for now , pending bone scan of the left leg to rule out osteomyelitis , surgery has been following , repeated blood culture is negative so far . she has slow recovery due to significant lymphedema and fluids overload. (2) UTI (urinary tract infection) Assessment & Plan: due to strep agalactiae and staph aureus, improved , she is already on meropenem and zyvox (3) Septic shock Assessment & Plan: due to the above , blood culture remains negative , has improvement in her leukocytosis, left femoral HD catheter was pulled out , repeated blood culture is negative , continue meropenem and zyvox , monitor WBC (4) Respiratory failure requiring intubation Assessment & Plan: with fluids over load and pleural effusion, improving , was extubated , continue HD to remove more fluids as tolerated , monitor CXR. (5) SCARLET (acute kidney injury) Assessment & Plan: required HD , has mild improvement in her urine output, nephrology is following, monitor UOP (6) DKA (diabetic ketoacidoses) Assessment & Plan: due to poorly controlled diabetes and sepsis, S/P insulin drip in the ICU , continue close monitor of her blood glucose to keep between 80 -120 (7) Leg wound, left Assessment & Plan: with infection due to staph aureus and klebsiella oxytoca, already on meropenem and zyvox , continue local wound care as per hospital protocol , bone scan to rule out underlying osteomyelitis is being done today Subjective Constitutional: Reports: no symptoms HEENT: Reports: no symptoms Respiratory: Reports: no symptoms Breasts: Reports: no symptoms Cardiovascular: Reports: no symptoms Gastrointestinal/Abdominal: Reports: no symptoms Genitourinary: Reports: no symptoms Neurologic: Reports: no symptoms Psychiatric: Reports: no symptoms Skin: Reports: ulcer Endocrine: Reports: no symptoms Hematologic: Reports: no symptoms Musculoskeletal: Reports: no symptoms Allergies: Coded Allergies: LATEX (Verified Allergy, Unknown, skin rash, 08/12/17) PENICILLINS (Verified Allergy, Unknown, 07/30/17) According to mother, the patient is allergic to Penicillins Subjective she was awake and responsive. denied any pain , no fever or chills today. has less lymphedema in her lower abdomen skin and less redness. mild left groin lymphadenopathy small skin breaks drying out at the folds site . Objective Vital Signs Last 24 Hour Vital Signs Date Time Temp Pulse Resp B/P (MAP) Pulse Ox O2 Delivery O2 Flow Rate FiO2 08/13/17 14:00 91 20 147/77 95 Nasal Cannula 4.0 08/13/17 12:00 91 20 132/70 95 Nasal Cannula 4.0 08/13/17 12:00 90 08/13/17 11:00 98.7 88 21 121/74 95 Nasal Cannula 4.0 98.7 08/13/17 09:00 83 23 117/75 97 Nasal Cannula 4.0 08/13/17 08:00 99.0 89 23 143/72 99 Venturi Mask 8.0 40 99.0 08/13/17 08:00 91 08/13/17 07:56 Venturi Mask 8.0 40 08/13/17 07:56 96 Venturi Mask 8.0 40 08/13/17 07:00 83 24 118/72 99 Venturi Mask 8.0 40 08/13/17 06:00 81 27 138/81 93 Venturi Mask 8.0 40 08/13/17 05:00 84 27 144/93 96 Venturi Mask 8.0 40 08/13/17 04:00 88 08/13/17 04:00 98.7 85 23 147/70 94 Venturi Mask 8.0 40 98.7 08/13/17 03:00 85 26 153/74 93 Venturi Mask 8.0 40 08/13/17 02:00 87 26 130/72 91 Venturi Mask 8.0 40 08/13/17 01:30 138/70 08/13/17 01:00 93 26 138/70 91 Venturi Mask 8.0 40 08/13/17 00:00 99.1 89 26 139/71 91 Venturi Mask 8.0 40 99.1 08/13/17 00:00 93 08/12/17 23:00 92 26 141/75 93 Venturi Mask 8.0 40 08/12/17 22:00 90 29 137/94 94 Venturi Mask 8.0 40 08/12/17 21:00 93 25 156/71 93 Nasal Cannula 4.0 08/12/17 20:16 Room Air 3.5 08/12/17 20:15 99.0 92 28 143/71 Nasal Cannula 3.5 99.0 08/12/17 20:00 99.0 89 22 138/62 93 Nasal Cannula 4.0 99.0 08/12/17 20:00 89 08/12/17 19:26 Nasal Cannula 4.0 36 08/12/17 19:26 94 Nasal Cannula 4.0 36 08/12/17 19:00 89 22 134/64 92 Nasal Cannula 6.0 08/12/17 18:00 99.4 90 22 143/68 95 Nasal Cannula 4.0 99.4 08/12/17 17:20 Nasal Cannula 3.5 08/12/17 17:00 99.4 88 28 138/63 3.5 99.4 08/12/17 17:00 96 22 139/96 100 Nasal Cannula 6.0 08/12/17 16:00 102 08/12/17 15:00 95 27 145/69 92 Nasal Cannula 4.0 Height (Feet): 5 Height (Inches): 5.00 Weight (Pounds): 319 General Appearance: WD/WN, no acute distress HEENT: normocephalic, atraumatic, anicteric, mucous membranes moist Respiratory/Chest: chest wall non-tender, no respiratory distress, no accessory muscle use, decreased breath sounds, crackles/rales Cardiovascular: normal peripheral pulses, normal rate, regular rhythm, no gallop/murmur, no JVD Abdomen: no organomegaly, non distended, no mass, no scars, hypoactive bowel sounds, other - lymphedema Skin: no rash, no lesions Neurologic/Psychiatric: alert, oriented x 3, responsive Microbiology Date/Time Source Procedure Growth Status 08/10/17 16:00 Femoral Left Catheter Tip Culture - Preliminary NO GROWTH AFTER 48 HOURS Resulted Laboratory Tests Test 08/13/17 04:00 08/13/17 04:50 Arterial Blood pH 7.510 (7.350-7.450) Arterial Blood Partial Pressure CO2 40.0 mmHg (35.0-45.0) Arterial Blood Partial Pressure O2 70.5 mmHg (75.0-100.0) L Arterial Blood HCO3 32.0 mmol/L (22.0-26.0) H Arterial Blood Oxygen Saturation 93.4 % (92.0-98.0) Arterial Blood Base Excess 8.3 Ravi Test Positive White Blood Count 8.2 K/UL (4.8-10.8) Red Blood Count 3.28 M/UL (4.20-5.40) L Hemoglobin 7.5 G/DL (12.0-16.0) L Hematocrit 24.0 % (37.0-47.0) L Mean Corpuscular Volume 73 FL (80-99) L Mean Corpuscular Hemoglobin 22.8 PG (27.0-31.0) L Mean Corpuscular Hemoglobin Concent 31.1 G/DL (32.0-36.0) L Red Cell Distribution Width 19.0 % (11.6-14.8) H Platelet Count 355 K/UL (150-450) Mean Platelet Volume 5.5 FL (6.5-10.1) L Neutrophils (%) (Auto) % (45.0-75.0) Lymphocytes (%) (Auto) % (20.0-45.0) Monocytes (%) (Auto) % (1.0-10.0) Eosinophils (%) (Auto) % (0.0-3.0) Basophils (%) (Auto) % (0.0-2.0) Differential Total Cells Counted 100 Neutrophils % (Manual) 80 % (45-75) H Lymphocytes % (Manual) 14 % (20-45) L Monocytes % (Manual) 4 % (1-10) Eosinophils % (Manual) 2 % (0-3) Basophils % (Manual) 0 % (0-2) Band Neutrophils 0 % (0-8) Platelet Estimate Adequate Platelet Morphology Normal Hypochromasia 1+ Anisocytosis 1+ Microcytosis 1+ Sodium Level 142 MMOL/L (136-145) Potassium Level 3.6 MMOL/L (3.5-5.1) Chloride Level 104 MMOL/L (98-107) Carbon Dioxide Level 31 MMOL/L (21-32) Anion Gap 7 mmol/L (5-15) Blood Urea Nitrogen 36 mg/dL (7-18) H Creatinine 3.5 MG/DL (0.55-1.30) H Estimat Glomerular Filtration Rate 13.9 mL/min (>60) Glucose Level 73 MG/DL (74-106) L Calcium Level 7.8 MG/DL (8.5-10.1) L Current Medications Medications (Trade) Dose Ordered Sig/Tommy Route PRN Reason Start Time Stop Time Status Last Admin Dose Admin Acetaminophen (Tylenol) 650 mg EVERY 6 HOURS PRN RECTAL Prn pain/Temp > 100.5 08/08/17 06:00 09/05/17 19:57 Acetaminophen (Tylenol) 650 mg Q4H PRN NG Mild Pain/Temp > 100.5 08/08/17 21:00 09/07/17 20:59 08/09/17 07:10 Chlorhexidine Gluconate (Idalia-Hex 2%) 1 applic DAILY@2000 TOPIC 08/09/17 20:00 09/08/17 19:59 08/12/17 20:56 Clotrimazole (Lotrimin) 1 applic NEEDED TOPIC 08/08/17 05:30 09/07/17 05:29 Dextrose (Dextrose 50%) 25 ml STAT PRN IV Hypoglycemia 08/08/17 20:00 09/05/17 19:57 Dextrose (Dextrose 50%) 50 ml STAT PRN IV Hypoglycemia 08/08/17 20:00 09/05/17 19:57 Heparin Sodium (Porcine) (Heparin 5000 units/ml) 5,000 units Q8H SUBQ 08/08/17 07:00 09/05/17 14:59 08/13/17 06:08 Insulin Aspart (NovoLOG) BEFORE MEALS AND HS SUBQ 08/12/17 11:30 09/11/17 11:29 08/13/17 11:29 Insulin Detemir (Levemir) 16 units Q12HR SUBQ 08/12/17 09:00 09/06/17 08:59 08/13/17 08:39 Linezolid 300 ml @ 300 mls/hr Q12HR IVPB 08/08/17 09:00 08/15/17 23:59 08/13/17 08:38 Meropenem 500 mg/ Sodium Chloride 110 ml @ 220 mls/hr Q12HR IVPB 08/08/17 09:00 08/15/17 23:00 08/13/17 08:38 Norepinephrine Bitartrate 4 mg/ Dextrose 250 ml @ 0 mls/hr Q24H IV 08/08/17 01:30 09/07/17 01:29 08/08/17 01:41 Pantoprazole (Protonix) 40 mg BID IVP 08/09/17 18:00 09/06/17 08:59 08/13/17 08:38 Silver Sulfadiazine (Silvadene Cream 25gm) 1 applic DAILY TOPIC 08/08/17 09:00 08/31/17 10:29 08/13/17 08:38 Johanny Colbert M.D. August 13, 2017 14:40
[2017-08-13] MEDS ORDERED: NS 275ml ONE ×2 (15:09→15:10)
[2017-08-13] MEDS ORDERED: Tubing IV Secondary IV ONE (15:10)
--- NOTE | 2017-08-13 15:22 | Cardiac Electrophysiology PN ---
Assessment/Plan Assessment/Plan 1. S/P Septic shock due to diabetic ketoacidosis. On broad-spectrum IV antibiotic. Off pressors Echocardiogram showed EF 60%. Rule out for OR 2. Diabetic ketoacidosis, on IV fluids and insulin. 3. S/P Cardiac arrest needing atropine. Due to respiratory failure. Now in SR 4. White count of 36,000, abdominal cellulitis, likely because of the patient's DKA. IV antibiotic per Dr. Colbert. 5. Morbid obesity. 6. Respiratory failure, reextubated 7. ARF on HD now via Right IJ. had HD yesterday 8. Anemia hb 6.9. Transfused 2 units. Now around 8 9. Severe hyponatremia, sodium 118, Resolved now 140s 10. Dysphagia, passed swallow eval and now advancing her diet DW RN Subjective Subjective In ICU alert and off pressor. Had HD yesterday off the vent Objective Last 24 Hour Vital Signs Date Time Temp Pulse Resp B/P (MAP) Pulse Ox O2 Delivery O2 Flow Rate FiO2 08/13/17 14:00 91 20 147/77 95 Nasal Cannula 4.0 08/13/17 12:00 91 20 132/70 95 Nasal Cannula 4.0 08/13/17 12:00 90 08/13/17 11:00 98.7 88 21 121/74 95 Nasal Cannula 4.0 98.7 08/13/17 09:00 83 23 117/75 97 Nasal Cannula 4.0 08/13/17 08:00 99.0 89 23 143/72 99 Venturi Mask 8.0 40 99.0 08/13/17 08:00 91 08/13/17 07:56 Venturi Mask 8.0 40 08/13/17 07:56 96 Venturi Mask 8.0 40 08/13/17 07:00 83 24 118/72 99 Venturi Mask 8.0 40 08/13/17 06:00 81 27 138/81 93 Venturi Mask 8.0 40 08/13/17 05:00 84 27 144/93 96 Venturi Mask 8.0 40 08/13/17 04:00 88 08/13/17 04:00 98.7 85 23 147/70 94 Venturi Mask 8.0 40 98.7 08/13/17 03:00 85 26 153/74 93 Venturi Mask 8.0 40 5/19/18 02:00 87 26 130/72 91 Venturi Mask 8.0 40 08/13/17 01:30 138/70 08/13/17 01:00 93 26 138/70 91 Venturi Mask 8.0 40 08/13/17 00:00 99.1 89 26 139/71 91 Venturi Mask 8.0 40 99.1 08/13/17 00:00 93 08/12/17 23:00 92 26 141/75 93 Venturi Mask 8.0 40 08/12/17 22:00 90 29 137/94 94 Venturi Mask 8.0 40 08/12/17 21:00 93 25 156/71 93 Nasal Cannula 4.0 08/12/17 20:16 Room Air 3.5 08/12/17 20:15 99.0 92 28 143/71 Nasal Cannula 3.5 99.0 08/12/17 20:00 99.0 89 22 138/62 93 Nasal Cannula 4.0 99.0 08/12/17 20:00 89 08/12/17 19:26 Nasal Cannula 4.0 36 08/12/17 19:26 94 Nasal Cannula 4.0 36 08/12/17 19:00 89 22 134/64 92 Nasal Cannula 6.0 08/12/17 18:00 99.4 90 22 143/68 95 Nasal Cannula 4.0 99.4 08/12/17 17:20 Nasal Cannula 3.5 08/12/17 17:00 99.4 88 28 138/63 3.5 99.4 08/12/17 17:00 96 22 139/96 100 Nasal Cannula 6.0 08/12/17 16:00 102 Intake and Output 08/12/17 08/13/17 19:00 07:00 Intake Total 560 ml 410 ml Output Total 1390 ml 3475 ml Balance -830 ml -3065 ml IV Total 520 ml 410 ml Tube Feeding 40 ml Output Urine Total 1390 ml 475 ml Hemodialysis UF 3000 ml # Bowel Movements 2 2 Laboratory Tests Test 08/13/17 04:00 08/13/17 04:50 Arterial Blood pH 7.510 (7.350-7.450) Arterial Blood Partial Pressure CO2 40.0 mmHg (35.0-45.0) Arterial Blood Partial Pressure O2 70.5 mmHg (75.0-100.0) L Arterial Blood HCO3 32.0 mmol/L (22.0-26.0) H Arterial Blood Oxygen Saturation 93.4 % (92.0-98.0) Arterial Blood Base Excess 8.3 Ravi Test Positive White Blood Count 8.2 K/UL (4.8-10.8) Red Blood Count 3.28 M/UL (4.20-5.40) L Hemoglobin 7.5 G/DL (12.0-16.0) L Hematocrit 24.0 % (37.0-47.0) L Mean Corpuscular Volume 73 FL (80-99) L Mean Corpuscular Hemoglobin 22.8 PG (27.0-31.0) L Mean Corpuscular Hemoglobin Concent 31.1 G/DL (32.0-36.0) L Red Cell Distribution Width 19.0 % (11.6-14.8) H Platelet Count 355 K/UL (150-450) Mean Platelet Volume 5.5 FL (6.5-10.1) L Neutrophils (%) (Auto) % (45.0-75.0) Lymphocytes (%) (Auto) % (20.0-45.0) Monocytes (%) (Auto) % (1.0-10.0) Eosinophils (%) (Auto) % (0.0-3.0) Basophils (%) (Auto) % (0.0-2.0) Differential Total Cells Counted 100 Neutrophils % (Manual) 80 % (45-75) H Lymphocytes % (Manual) 14 % (20-45) L Monocytes % (Manual) 4 % (1-10) Eosinophils % (Manual) 2 % (0-3) Basophils % (Manual) 0 % (0-2) Band Neutrophils 0 % (0-8) Platelet Estimate Adequate Platelet Morphology Normal Hypochromasia 1+ Anisocytosis 1+ Microcytosis 1+ Sodium Level 142 MMOL/L (136-145) Potassium Level 3.6 MMOL/L (3.5-5.1) Chloride Level 104 MMOL/L (98-107) Carbon Dioxide Level 31 MMOL/L (21-32) Anion Gap 7 mmol/L (5-15) Blood Urea Nitrogen 36 mg/dL (7-18) H Creatinine 3.5 MG/DL (0.55-1.30) H Estimat Glomerular Filtration Rate 13.9 mL/min (>60) Glucose Level 73 MG/DL (74-106) L Calcium Level 7.8 MG/DL (8.5-10.1) L Microbiology Date/Time Source Procedure Growth Status 08/10/17 16:00 Femoral Left Catheter Tip Culture - Preliminary NO GROWTH AFTER 48 HOURS Resulted Objective HEAD AND NECK: No JVD, . Right IJ Manjinder catheter LUNGS: Coarse rhonchi. CARDIOVASCULAR: Regular S1 and S2 with no gallop. ABDOMEN: Cellulitis of the lower abdomen and erythema. EXTREMITIES: 1+ pitting edema. Adama Trujillo MD August 13, 2017 15:22
[2017-08-13] MEDS ORDERED: Acetaminophen 650 MG SUPP RECTAL PRN (18:00)
[2017-08-13] MEDS: Dyna-Hex 2% Top Sol 2oz TOPIC SCH (20:03)
[2017-08-13] MEDS ORDERED: Levemir Flexpen SUBQ SCH (21:00)
[2017-08-13] MEDS ORDERED: Acetaminophen 650mg/20.3ml NG PRN (21:00)
[2017-08-14] VITALS: BP 137/90
[2017-08-14 04:00] VITALS: BP 142/70
[2017-08-14 05:42] LABS: HEMATOCRIT 22.3 % (37.0-47.0); HEMOGLOBIN 7.2 G/DL (12.0-16.0); MEAN CORPUSCULAR VOLUME 74 FL (80-99); PLATELET COUNT 333 K/UL (150-450); RED BLOOD COUNT 3.03 M/UL (4.20-5.40); RED CELL DISTRIBUTION WIDTH 19.1 % (11.6-14.8); WHITE BLOOD COUNT 6.4 K/UL (4.8-10.8)
[2017-08-14 06:02] LABS: ANION GAP 6 mmol/L (5-15); BLOOD UREA NITROGEN 36 mg/dL (7-18); CALCIUM 8.1 MG/DL (8.5-10.1); CARBON DIOXIDE 31 MMOL/L (21-32); CHLORIDE 103 MMOL/L (98-107); CREATININE 3.8 MG/DL (0.55-1.30); POTASSIUM 3.7 MMOL/L (3.5-5.1); SODIUM 140 MMOL/L (136-145)
[2017-08-14] MEDS: NovoLOG Insulin Flexpen SUBQ SCH ×4 (06:30→21:00)
[2017-08-14] MEDS: Heparin 5000 units/ml inj SUBQ SCH ×3 (07:00→23:25)
--- NOTE | 2017-08-14 07:05 | General Progress Note ---
Assessment/Plan Problem List: (1) Cellulitis of abdominal wall ICD Codes: L03.311 - Cellulitis of abdominal wall SNOMED: 71690421 (2) Acute respiratory failure ICD Codes: J96.00 - Acute respiratory failure, unspecified whether with hypoxia or hypercapnia SNOMED: 31484051 (3) New onset type 1 diabetes mellitus, uncontrolled ICD Codes: E10.65 - Type 1 diabetes mellitus with hyperglycemia SNOMED: 427480558 (4) Necrotizing fasciitis ICD Codes: M72.6 - Necrotizing fasciitis SNOMED: 78710616 (5) DKA (diabetic ketoacidoses) ICD Codes: E13.10 - Other specified diabetes mellitus with ketoacidosis without coma SNOMED: 65320735, 440617681 Assessment/Plan reduce Levemir to 14 units bid continue NISS ac / hs Subjective Allergies: Coded Allergies: LATEX (Verified Allergy, Unknown, skin rash, 08/12/17) PENICILLINS (Verified Allergy, Unknown, 07/30/17) According to mother, the patient is allergic to Penicillins All Systems: reviewed and negative except above Subjective events noted - transferred out of ICU Objective Last 24 Hour Vital Signs Date Time Temp Pulse Resp B/P (MAP) Pulse Ox O2 Delivery O2 Flow Rate FiO2 08/14/17 04:00 98.8 89 20 142/70 97 Nasal Cannula 4.0 98.8 08/14/17 04:00 86 08/14/17 00:00 87 08/14/17 00:00 97.0 89 20 137/90 96 Nasal Cannula 4.0 97.0 08/13/17 20:00 95 08/13/17 20:00 98.7 96 21 155/89 97 Nasal Cannula 4.0 98.7 08/13/17 18:52 Nasal Cannula 4.0 36 08/13/17 18:52 94 Nasal Cannula 4.0 36 08/13/17 16:00 86 08/13/17 16:00 98.7 88 21 121/74 95 Nasal Cannula 4.0 98.7 08/13/17 14:00 91 20 147/77 95 Nasal Cannula 4.0 08/13/17 12:00 91 20 132/70 95 Nasal Cannula 4.0 08/13/17 12:00 90 08/13/17 11:00 98.7 88 21 121/74 95 Nasal Cannula 4.0 98.7 08/13/17 09:00 83 23 117/75 97 Nasal Cannula 4.0 08/13/17 08:00 99.0 89 23 143/72 99 Venturi Mask 8.0 40 99.0 08/13/17 08:00 91 08/13/17 07:56 Venturi Mask 8.0 40 08/13/17 07:56 96 Venturi Mask 8.0 40 Intake and Output 08/13/17 08/14/17 19:00 07:00 Intake Total 770 ml 530 ml Output Total 550 ml 1300 ml Balance 220 ml -770 ml Intake Oral 360 ml 120 ml IV Total 410 ml 410 ml Output Urine Total 550 ml 1300 ml # Bowel Movements 4 Laboratory Tests 08/14/17 03:45: White Blood Count 6.4, Red Blood Count 3.03L, Hemoglobin 7.2L, Hematocrit 22.3L , Mean Corpuscular Volume 74L, Mean Corpuscular Hemoglobin 23.7L, Mean Corpuscular Hemoglobin Concent 32.2, Red Cell Distribution Width 19.1H, Platelet Count 333, Mean Platelet Volume 4.9L, Neutrophils (%) (Auto) , Lymphocytes (%) (Auto) , Monocytes (%) (Auto) , Eosinophils (%) (Auto) , Basophils (%) (Auto) , Neutrophils % (Manual) [Pending], Lymphocytes % (Manual) [Pending], Platelet Estimate [Pending], Platelet Morphology [Pending], Sodium Level 140, Potassium Level 3.7, Chloride Level 103, Carbon Dioxide Level 31, Anion Gap 6, Blood Urea Nitrogen 36H, Creatinine 3.8H, Estimat Glomerular Filtration Rate 12.7, Glucose Level 110H, Calcium Level 8.1L Height (Feet): 5 Height (Inches): 5.00 Weight (Pounds): 324 General Appearance: no apparent distress Neck: normal alignment Cardiovascular: normal rate Respiratory/Chest: decreased breath sounds Abdomen: normal bowel sounds Edema: 1+ Arm (L), 1+ Arm (R), 1+ Leg (L), 1+ Leg (R), 1+ Pedal (L), 1+ Pedal ( R), 1+ Generalized Objective Current Medications Medications (Trade) Dose Ordered Sig/Tommy Route PRN Reason Start Time Stop Time Status Last Admin Dose Admin Acetaminophen (Tylenol) 650 mg Q4H PRN NG Mild Pain/Temp > 100.5 08/13/17 21:00 09/07/17 20:59 Acetaminophen (Tylenol) 650 mg Q6H PRN RECTAL Prn pain/Temp > 100.5 08/13/17 18:00 09/12/17 17:59 Chlorhexidine Gluconate (Idalia-Hex 2%) 1 applic DAILY@2000 TOPIC 08/13/17 20:00 09/08/17 19:59 08/13/17 20:03 Clotrimazole (Lotrimin) 1 applic NEEDED TOPIC 08/13/17 18:00 09/12/17 17:59 08/14/17 03:28 Dextrose (Dextrose 50%) 25 ml STAT PRN IV Hypoglycemia 08/13/17 20:00 09/05/17 19:57 Dextrose (Dextrose 50%) 50 ml STAT PRN IV Hypoglycemia 08/13/17 20:00 09/05/17 19:57 Heparin Sodium (Porcine) (Heparin 5000 units/ml) 5,000 units Q8H SUBQ 08/13/17 23:00 09/05/17 14:59 08/13/17 23:06 Insulin Aspart (NovoLOG) BEFORE MEALS AND HS SUBQ 08/13/17 21:00 09/11/17 11:29 08/13/17 21:02 Insulin Detemir (Levemir) 16 units Q12HR SUBQ 08/13/17 21:00 09/06/17 08:59 08/13/17 21:03 Linezolid 300 ml @ 300 mls/hr Q12HR IVPB 08/13/17 21:00 08/15/17 23:59 08/13/17 20:35 Meropenem 500 mg/ Sodium Chloride 110 ml @ 220 mls/hr Q12HR@1000,2200 IVPB 08/13/17 22:00 08/18/17 21:59 08/13/17 21:41 Pantoprazole (Protonix) 40 mg BID IVP 08/14/17 09:00 09/06/17 08:59 Silver Sulfadiazine (Silvadene Cream 25gm) 1 applic DAILY TOPIC 08/14/17 09:00 08/31/17 10:29 Item Value Date Time Bedside Blood Glucose 96 mg/dl 08/14/17 0630 Bedside Blood Glucose 143 mg/dl H 5/19/18 2103 Bedside Blood Glucose 144 mg/dl H 08/13/17 1634 Bedside Blood Glucose 141 mg/dl H 08/13/17 1130 Bedside Blood Glucose 75 mg/dl 08/13/17 0839 SAQIB TOM August 14, 2017 07:05
--- NOTE | 2017-08-14 07:13 | Pulmonology Progress Note ---
Assessment/Plan Assessment/Plan respiratory failure s/p extubation and now with reintubation DKA sepsis abd wall cellulitis fluid overload effusions and edema anemia PLAN JONO care BIPAP QHS encouraged but refused stable off vent for now keep negative monitor ABG repeat imaging monitor for change and recommend from pulm standpoint improved Subjective Allergies: Coded Allergies: LATEX (Verified Allergy, Unknown, skin rash, 08/12/17) PENICILLINS (Verified Allergy, Unknown, 07/30/17) According to mother, the patient is allergic to Penicillins Subjective off vent- stable d/w RN care noted Objective Last 24 Hour Vital Signs Date Time Temp Pulse Resp B/P (MAP) Pulse Ox O2 Delivery O2 Flow Rate FiO2 08/14/17 07:04 Nasal Cannula 4.0 36 08/14/17 07:03 95 Nasal Cannula 4.0 36 08/14/17 04:00 98.8 89 20 142/70 97 Nasal Cannula 4.0 98.8 08/14/17 04:00 86 08/14/17 00:00 87 08/14/17 00:00 97.0 89 20 137/90 96 Nasal Cannula 4.0 97.0 08/13/17 20:00 95 08/13/17 20:00 98.7 96 21 155/89 97 Nasal Cannula 4.0 98.7 08/13/17 18:52 Nasal Cannula 4.0 36 08/13/17 18:52 94 Nasal Cannula 4.0 36 08/13/17 16:00 86 08/13/17 16:00 98.7 88 21 121/74 95 Nasal Cannula 4.0 98.7 08/13/17 14:00 91 20 147/77 95 Nasal Cannula 4.0 08/13/17 12:00 91 20 132/70 95 Nasal Cannula 4.0 08/13/17 12:00 90 08/13/17 11:00 98.7 88 21 121/74 95 Nasal Cannula 4.0 98.7 08/13/17 09:00 83 23 117/75 97 Nasal Cannula 4.0 08/13/17 08:00 99.0 89 23 143/72 99 Venturi Mask 8.0 40 99.0 08/13/17 08:00 91 08/13/17 07:56 Venturi Mask 8.0 40 08/13/17 07:56 96 Venturi Mask 8.0 40 Intake and Output 08/13/17 08/14/17 19:00 07:00 Intake Total 770 ml 530 ml Output Total 550 ml 1300 ml Balance 220 ml -770 ml Intake Oral 360 ml 120 ml IV Total 410 ml 410 ml Output Urine Total 550 ml 1300 ml # Bowel Movements 4 Objective WDWN off vent and seems stable NAD reduced breath sounds bilaterally without rhonchi or wheeze [id number] without MRG NABS nontender no HSM no CC edema nonfocal Laboratory Tests 08/14/17 03:45: White Blood Count 6.4, Red Blood Count 3.03L, Hemoglobin 7.2L, Hematocrit 22.3L , Mean Corpuscular Volume 74L, Mean Corpuscular Hemoglobin 23.7L, Mean Corpuscular Hemoglobin Concent 32.2, Red Cell Distribution Width 19.1H, Platelet Count 333, Mean Platelet Volume 4.9L, Neutrophils (%) (Auto) , Lymphocytes (%) (Auto) , Monocytes (%) (Auto) , Eosinophils (%) (Auto) , Basophils (%) (Auto) , Neutrophils % (Manual) [Pending], Lymphocytes % (Manual) [Pending], Platelet Estimate [Pending], Platelet Morphology [Pending], Sodium Level 140, Potassium Level 3.7, Chloride Level 103, Carbon Dioxide Level 31, Anion Gap 6, Blood Urea Nitrogen 36H, Creatinine 3.8H, Estimat Glomerular Filtration Rate 12.7, Glucose Level 110H, Calcium Level 8.1L Current Medications Medications (Trade) Dose Ordered Sig/Tommy Route PRN Reason Start Time Stop Time Status Last Admin Dose Admin Acetaminophen (Tylenol) 650 mg Q4H PRN NG Mild Pain/Temp > 100.5 08/13/17 21:00 09/07/17 20:59 Acetaminophen (Tylenol) 650 mg Q6H PRN RECTAL Prn pain/Temp > 100.5 08/13/17 18:00 09/12/17 17:59 Chlorhexidine Gluconate (Idalia-Hex 2%) 1 applic DAILY@1999 TOPIC 08/13/17 20:00 09/08/17 19:59 08/13/17 20:03 Clotrimazole (Lotrimin) 1 applic NEEDED TOPIC 08/13/17 18:00 09/12/17 17:59 08/14/17 03:28 Dextrose (Dextrose 50%) 25 ml STAT PRN IV Hypoglycemia 08/13/17 20:00 09/05/17 19:57 Dextrose (Dextrose 50%) 50 ml STAT PRN IV Hypoglycemia 08/13/17 20:00 09/05/17 19:57 Heparin Sodium (Porcine) (Heparin 5000 units/ml) 5,000 units Q8H SUBQ 08/13/17 23:00 09/05/17 14:59 08/13/17 23:06 Insulin Aspart (NovoLOG) BEFORE MEALS AND HS SUBQ 08/13/17 21:00 09/11/17 11:29 08/13/17 21:02 Insulin Detemir (Levemir) 14 units Q12HR SUBQ 08/14/17 09:00 09/06/17 08:59 UNV Linezolid 300 ml @ 300 mls/hr Q12HR IVPB 08/13/17 21:00 08/15/17 23:59 08/13/17 20:35 Meropenem 500 mg/ Sodium Chloride 110 ml @ 220 mls/hr Q12HR@1000,2200 IVPB 08/13/17 22:00 08/18/17 21:59 08/13/17 21:41 Pantoprazole (Protonix) 40 mg BID IVP 08/14/17 09:00 09/06/17 08:59 Silver Sulfadiazine (Silvadene Cream 25gm) 1 applic DAILY TOPIC 08/14/17 09:00 08/31/17 10:29 Stew Hopson MD August 14, 2017 07:13
[2017-08-14 08:00] VITALS: BP 152/82
--- NOTE | 2017-08-14 08:40 | Nephrology Progress Note ---
Assessment/Plan Assessment/Plan 1. SCARLET- ATN non resolving. Will hold HD today - multifact ATN (sepsis induced inflammotory cytokine prox tub damage/ ishchemic ATN hypotension/vol dep) - good UOP at 1.8 L 2. DKA/Met Acidosis - resolved 3. Septic Shock- etiology likely from abd cellulitis. Abx mgmt per ID. - off pressors and improved 4. Hypotension- resolved 5. Resp FL- extubated 6. Hypok+/Ca/Phos- replace prn. 7. Anemia- When stable GI anticipates procedure. -PRN Bld tx Hgb <7 8. Left UE erythema- US r/o DVT - possible cellulitis Subjective Date patient seen: August 14, 2017 Time patient seen: 08:35 ROS Limited/Unobtainable: No Constitutional: Reports: weakness Allergies: Coded Allergies: LATEX (Verified Allergy, Unknown, skin rash, 08/12/17) PENICILLINS (Verified Allergy, Unknown, 07/30/17) According to mother, the patient is allergic to Penicillins All Systems: reviewed and negative except above Subjective Patient extubated and eating , much improved. Good UOP Objective Last 24 Hour Vital Signs Date Time Temp Pulse Resp B/P (MAP) Pulse Ox O2 Delivery O2 Flow Rate FiO2 08/14/17 07:04 Nasal Cannula 4.0 36 08/14/17 07:03 95 Nasal Cannula 4.0 36 08/14/17 04:00 98.8 89 20 142/70 97 Nasal Cannula 4.0 98.8 08/14/17 04:00 86 08/14/17 00:00 87 08/14/17 00:00 97.0 89 20 137/90 96 Nasal Cannula 4.0 97.0 08/13/17 20:00 95 08/13/17 20:00 98.7 96 21 155/89 97 Nasal Cannula 4.0 98.7 08/13/17 18:52 Nasal Cannula 4.0 36 08/13/17 18:52 94 Nasal Cannula 4.0 36 08/13/17 16:00 86 08/13/17 16:00 98.7 88 21 121/74 95 Nasal Cannula 4.0 98.7 08/13/17 14:00 91 20 147/77 95 Nasal Cannula 4.0 08/13/17 12:00 91 20 132/70 95 Nasal Cannula 4.0 08/13/17 12:00 90 08/13/17 11:00 98.7 88 21 121/74 95 Nasal Cannula 4.0 98.7 08/13/17 09:00 83 23 117/75 97 Nasal Cannula 4.0 Intake and Output 08/13/17 08/14/17 19:00 07:00 Intake Total 770 ml 530 ml Output Total 550 ml 1300 ml Balance 220 ml -770 ml Intake Oral 360 ml 120 ml IV Total 410 ml 410 ml Output Urine Total 550 ml 1300 ml # Bowel Movements 4 Laboratory Tests 08/14/17 03:45: White Blood Count 6.4, Red Blood Count 3.03L, Hemoglobin 7.2L, Hematocrit 22.3L , Mean Corpuscular Volume 74L, Mean Corpuscular Hemoglobin 23.7L, Mean Corpuscular Hemoglobin Concent 32.2, Red Cell Distribution Width 19.1H, Platelet Count 333, Mean Platelet Volume 4.9L, Neutrophils (%) (Auto) , Lymphocytes (%) (Auto) , Monocytes (%) (Auto) , Eosinophils (%) (Auto) , Basophils (%) (Auto) , Neutrophils % (Manual) [Pending], Lymphocytes % (Manual) [Pending], Platelet Estimate [Pending], Platelet Morphology [Pending], Sodium Level 140, Potassium Level 3.7, Chloride Level 103, Carbon Dioxide Level 31, Anion Gap 6, Blood Urea Nitrogen 36H, Creatinine 3.8H, Estimat Glomerular Filtration Rate 12.7, Glucose Level 110H, Calcium Level 8.1L Height (Feet): 5 Height (Inches): 5.00 Weight (Pounds): 324 General Appearance: WD/WN, no apparent distress EENT: normal ENT inspection, TMs normal Neck: normal alignment, supple Cardiovascular: normal rate, regular rhythm Respiratory/Chest: lungs clear, normal breath sounds Abdomen: non tender, soft Edema: no edema noted Arm (L), no edema noted Arm (R), no edema noted Leg (L), no edema noted Leg (R), no edema noted Pedal (L), no edema noted Pedal (R), no edema noted Generalized Carlton Guzmán M.D. August 14, 2017 08:39
[2017-08-14] MEDS: Pantoprazole Inj IVP SCH ×2 (09:33→17:32)
[2017-08-14] MEDS: Levemir Flexpen SUBQ SCH ×2 (09:42→21:00)
--- NOTE | 2017-08-14 10:37 | General Progress Note ---
Assessment/Plan Assessment/Plan - Sepsis, improved - resp failure, resolved - DKA - abd wall cellulitis - obesity - Renal failure - Anemia >> OB (+)(-) - extubated today - ST evaluation reviewed Recommendations - FLD, adv as tolerated - ppi BID - elevated HOB - abx - follow labs and exam - check additional OB, neg ob x2 - transfuse PRN - fu labs Subjective ROS Limited/Unobtainable: Yes Allergies: Coded Allergies: LATEX (Verified Allergy, Unknown, skin rash, 08/12/17) PENICILLINS (Verified Allergy, Unknown, 07/30/17) According to mother, the patient is allergic to Penicillins Subjective feeling ok Objective Last 24 Hour Vital Signs Date Time Temp Pulse Resp B/P (MAP) Pulse Ox O2 Delivery O2 Flow Rate FiO2 08/14/17 08:00 100.3 89 26 152/82 96 Nasal Cannula 4.0 100.3 08/14/17 08:00 90 08/14/17 07:04 Nasal Cannula 4.0 36 08/14/17 07:03 95 Nasal Cannula 4.0 36 08/14/17 04:00 98.8 89 20 142/70 97 Nasal Cannula 4.0 98.8 08/14/17 04:00 86 08/14/17 00:00 87 08/14/17 00:00 97.0 89 20 137/90 96 Nasal Cannula 4.0 97.0 08/13/17 20:00 95 08/13/17 20:00 98.7 96 21 155/89 97 Nasal Cannula 4.0 98.7 08/13/17 18:52 Nasal Cannula 4.0 36 08/13/17 18:52 94 Nasal Cannula 4.0 36 08/13/17 16:00 86 08/13/17 16:00 98.7 88 21 121/74 95 Nasal Cannula 4.0 98.7 08/13/17 14:00 91 20 147/77 95 Nasal Cannula 4.0 08/13/17 12:00 91 20 132/70 95 Nasal Cannula 4.0 08/13/17 12:00 90 08/13/17 11:00 98.7 88 21 121/74 95 Nasal Cannula 4.0 98.7 Intake and Output 08/13/17 08/14/17 19:00 07:00 Intake Total 770 ml 530 ml Output Total 550 ml 1300 ml Balance 220 ml -770 ml Intake Oral 360 ml 120 ml IV Total 410 ml 410 ml Output Urine Total 550 ml 1300 ml # Bowel Movements 4 Laboratory Tests 08/14/17 03:45: White Blood Count 6.4, Red Blood Count 3.03L, Hemoglobin 7.2L, Hematocrit 22.3L , Mean Corpuscular Volume 74L, Mean Corpuscular Hemoglobin 23.7L, Mean Corpuscular Hemoglobin Concent 32.2, Red Cell Distribution Width 19.1H, Platelet Count 333, Mean Platelet Volume 4.9L, Neutrophils (%) (Auto) , Lymphocytes (%) (Auto) , Monocytes (%) (Auto) , Eosinophils (%) (Auto) , Basophils (%) (Auto) , Differential Total Cells Counted 100, Neutrophils % ( Manual) 70, Lymphocytes % (Manual) 22, Monocytes % (Manual) 5, Eosinophils % ( Manual) 3, Basophils % (Manual) 0, Band Neutrophils 0, Platelet Estimate Adequate, Platelet Morphology Normal, Hypochromasia 1+, Anisocytosis 1+, Microcytosis 1+, Sodium Level 140, Potassium Level 3.7, Chloride Level 103, Carbon Dioxide Level 31, Anion Gap 6, Blood Urea Nitrogen 36H, Creatinine 3.8H, Estimat Glomerular Filtration Rate 12.7, Glucose Level 110H, Calcium Level 8.1L Height (Feet): 5 Height (Inches): 5.00 Weight (Pounds): 324 General Appearance: alert EENT: normal ENT inspection Neck: supple Cardiovascular: normal rate Respiratory/Chest: decreased breath sounds Abdomen: normal bowel sounds, non tender, soft Extremities: non-tender Gianni Hernandez MD August 14, 2017 10:36
[2017-08-14] MEDS: Meropenem 500 MG in NS 110 ML IVPB SCH ×2 (10:58→21:18)
[2017-08-14 12:00] VITALS: BP 147/77
--- NOTE | 2017-08-14 15:14 | Diagnostic Imaging Report ---
EXAM: XR Left Ankle Complete, 3 or More Views CLINICAL HISTORY: INFECT TECHNIQUE: Frontal, lateral and oblique views of the left ankle. COMPARISON: No relevant prior studies available. FINDINGS: Bones/joints: Unremarkable. No acute fracture. No dislocation. No evidence of osteomyelitis. Soft tissues: Soft tissue swelling around ankle. IMPRESSION: 1. Soft tissue swelling around ankle. 2. Ankle mortise intact. No evidence of osteomyelitis.
--- NOTE | 2017-08-14 15:28 | Diagnostic Imaging Report ---
EXAM: XR Chest, 1 View CLINICAL HISTORY: Shortness of breath TECHNIQUE: Frontal view of the chest. COMPARISON: Chest x-ray dated 08/08/17. FINDINGS: Lungs: Mild pulmonary vascular congestion. Subsegmental atelectasis versus infiltrate in the right lower lung. Pleural space: Small layering right pleural effusion. No pneumothorax. Heart: Borderline enlarged heart. Mediastinum: Unremarkable. Bones/joints: Unremarkable. Tubes, lines and devices: Right-sided IJ approach central line in the region of the SVC. EKG leads overlie the thorax. There is been interval removal of endotracheal tube. IMPRESSION: There has been interval extubation, and placement of a right IJ approach central venous catheter from otherwise the findings are not significantly changed compared to the prior exam: 1. Mild pulmonary vascular congestion. 2. Subsegmental atelectasis versus infiltrate in the right lower lung. 3. Small layering right pleural effusion. 4. Borderline enlarged heart.
--- NOTE | 2017-08-14 15:39 | Infectious Diseases Prog Note ---
Assessment/Plan Problems: (1) Cellulitis of abdominal wall Assessment & Plan: complicated with panniculitis, now improving with improvement of her lymphedema , will continue meropenem and zyvox empiric coverage for 14 days total , bone scan of the left leg ruled out osteomyelitis also her ankle X ray , surgery has been following , repeated blood culture is negative so far . she has slow recovery due to significant lymphedema and fluids overload. (2) UTI (urinary tract infection) Assessment & Plan: due to strep agalactiae and staph aureus, improved , she is already on meropenem and zyvox (3) Septic shock Assessment & Plan: due to the above , blood culture remains negative , has improvement in her leukocytosis, left femoral HD catheter was pulled out , repeated blood culture is negative , continue meropenem and zyvox for 14 days (day 12 out of 14), monitor WBC (4) Respiratory failure requiring intubation Assessment & Plan: with fluids over load and pleural effusion, improving , was extubated , continue HD to remove more fluids as tolerated , monitor CXR. (5) SCARLET (acute kidney injury) Assessment & Plan: still on HD , has mild improvement in her urine output, nephrology is following, monitor UOP (6) DKA (diabetic ketoacidoses) Assessment & Plan: due to poorly controlled diabetes and sepsis, S/P insulin drip in the ICU , continue close monitor of her blood glucose to keep between 80 -120 (7) Leg wound, left Assessment & Plan: with infection due to staph aureus and klebsiella oxytoca, already on meropenem and zyvox , continue local wound care as per hospital protocol , bone scan ruled out underlying osteomyelitis also her X ray . (8) Forearm swelling Assessment & Plan: with redness and erythema, rule out DVT , VS infiltration due to IV line, VS phlebitis, doubt cellulitis since she is on wide spectrum covergae of antibiotics . recommend venous doppler , surgery recommends heat pads and NSAID Subjective Constitutional: Reports: fever HEENT: Reports: no symptoms Respiratory: Reports: no symptoms Breasts: Reports: no symptoms Cardiovascular: Reports: no symptoms Gastrointestinal/Abdominal: Reports: no symptoms Genitourinary: Reports: no symptoms Neurologic: Reports: weakness Psychiatric: Reports: no symptoms Skin: Reports: ulcer, other - left forearm redness with erythema Endocrine: Reports: no symptoms Hematologic: Reports: no symptoms Musculoskeletal: Reports: no symptoms Allergies: Coded Allergies: LATEX (Verified Allergy, Unknown, skin rash, 08/12/17) PENICILLINS (Verified Allergy, Unknown, 07/30/17) According to mother, the patient is allergic to Penicillins Subjective she was awake and , complained of left forearm redness and swelling with pain , had low grade fever , no chills today. has less lymphedema in her lower abdomen skin and less redness. mild left groin lymphadenopathy small skin breaks drying out at the folds site . Objective Vital Signs Last 24 Hour Vital Signs Date Time Temp Pulse Resp B/P (MAP) Pulse Ox O2 Delivery O2 Flow Rate FiO2 08/14/17 12:00 99.0 85 18 147/77 96 Nasal Cannula 4.0 99.0 08/14/17 12:00 82 08/14/17 08:00 100.3 89 26 152/82 96 Nasal Cannula 4.0 100.3 08/14/17 08:00 90 08/14/17 07:04 Nasal Cannula 4.0 36 08/14/17 07:03 95 Nasal Cannula 4.0 36 08/14/17 04:00 98.8 89 20 142/70 97 Nasal Cannula 4.0 98.8 08/14/17 04:00 86 08/14/17 00:00 87 08/14/17 00:00 97.0 89 20 137/90 96 Nasal Cannula 4.0 97.0 08/13/17 20:00 95 08/13/17 20:00 98.7 96 21 155/89 97 Nasal Cannula 4.0 98.7 08/13/17 18:52 Nasal Cannula 4.0 36 08/13/17 18:52 94 Nasal Cannula 4.0 36 08/13/17 16:00 86 08/13/17 16:00 98.7 88 21 121/74 95 Nasal Cannula 4.0 98.7 Height (Feet): 5 Height (Inches): 5.00 Weight (Pounds): 324 General Appearance: WD/WN, no acute distress HEENT: normocephalic, atraumatic, anicteric, mucous membranes moist, PERRL Respiratory/Chest: chest wall non-tender, lungs clear, normal breath sounds, no respiratory distress, no accessory muscle use, decreased breath sounds Cardiovascular: normal peripheral pulses, normal rate, regular rhythm, no gallop/murmur, no JVD Abdomen: normal bowel sounds, soft, non tender, no organomegaly, non distended , no mass, no scars, other - left lower quadarants lymphedema with mild skin redness Extremities: no cyanosis, no clubbing, other - left leg wound dry Skin: no rash, no lesions, ulcers Neurologic/Psychiatric: alert, oriented x 3, responsive Lymphatic: no neck adenopathy, no groin adenopathy Laboratory Tests Test 08/14/17 03:45 White Blood Count 6.4 K/UL (4.8-10.8) Red Blood Count 3.03 M/UL (4.20-5.40) L Hemoglobin 7.2 G/DL (12.0-16.0) L Hematocrit 22.3 % (37.0-47.0) L Mean Corpuscular Volume 74 FL (80-99) L Mean Corpuscular Hemoglobin 23.7 PG (27.0-31.0) L Mean Corpuscular Hemoglobin Concent 32.2 G/DL (32.0-36.0) Red Cell Distribution Width 19.1 % (11.6-14.8) H Platelet Count 333 K/UL (150-450) Mean Platelet Volume 4.9 FL (6.5-10.1) L Neutrophils (%) (Auto) % (45.0-75.0) Lymphocytes (%) (Auto) % (20.0-45.0) Monocytes (%) (Auto) % (1.0-10.0) Eosinophils (%) (Auto) % (0.0-3.0) Basophils (%) (Auto) % (0.0-2.0) Differential Total Cells Counted 100 Neutrophils % (Manual) 70 % (45-75) Lymphocytes % (Manual) 22 % (20-45) Monocytes % (Manual) 5 % (1-10) Eosinophils % (Manual) 3 % (0-3) Basophils % (Manual) 0 % (0-2) Band Neutrophils 0 % (0-8) Platelet Estimate Adequate Platelet Morphology Normal Hypochromasia 1+ Anisocytosis 1+ Microcytosis 1+ Sodium Level 140 MMOL/L (136-145) Potassium Level 3.7 MMOL/L (3.5-5.1) Chloride Level 103 MMOL/L (98-107) Carbon Dioxide Level 31 MMOL/L (21-32) Anion Gap 6 mmol/L (5-15) Blood Urea Nitrogen 36 mg/dL (7-18) H Creatinine 3.8 MG/DL (0.55-1.30) H Estimat Glomerular Filtration Rate 12.7 mL/min (>60) Glucose Level 110 MG/DL (74-106) H Calcium Level 8.1 MG/DL (8.5-10.1) L Current Medications Medications (Trade) Dose Ordered Sig/Tommy Route PRN Reason Start Time Stop Time Status Last Admin Dose Admin Acetaminophen (Tylenol) 650 mg Q4H PRN NG Mild Pain/Temp > 100.5 08/13/17 21:00 09/07/17 20:59 Acetaminophen (Tylenol) 650 mg Q6H PRN RECTAL Prn pain/Temp > 100.5 08/13/17 18:00 09/12/17 17:59 Chlorhexidine Gluconate (Idalia-Hex 2%) 1 applic DAILY@2000 TOPIC 08/13/17 20:00 09/08/17 19:59 08/13/17 20:03 Clotrimazole (Lotrimin) 1 applic NEEDED TOPIC 08/13/17 18:00 09/12/17 17:59 08/14/17 03:28 Dextrose (Dextrose 50%) 25 ml STAT PRN IV Hypoglycemia 08/13/17 20:00 09/05/17 19:57 Dextrose (Dextrose 50%) 50 ml STAT PRN IV Hypoglycemia 08/13/17 20:00 09/05/17 19:57 Heparin Sodium (Porcine) (Heparin 5000 units/ml) 5,000 units Q8H SUBQ 08/13/17 23:00 09/05/17 14:59 08/13/17 23:06 Insulin Aspart (NovoLOG) BEFORE MEALS AND HS SUBQ 08/13/17 21:00 09/11/17 11:29 08/13/17 21:02 Insulin Detemir (Levemir) 14 units Q12HR SUBQ 08/14/17 09:00 09/06/17 08:59 08/14/17 09:42 Linezolid 300 ml @ 300 mls/hr Q12HR IVPB 08/13/17 21:00 08/19/17 20:59 08/14/17 09:00 Meropenem 500 mg/ Sodium Chloride 110 ml @ 220 mls/hr Q12HR@1000,2200 IVPB 08/13/17 22:00 08/18/17 21:59 08/14/17 10:58 Pantoprazole (Protonix) 40 mg BID IVP 08/14/17 09:00 09/06/17 08:59 08/14/17 09:33 Silver Sulfadiazine (Silvadene Cream 25gm) 1 applic DAILY TOPIC 08/14/17 09:00 08/31/17 10:29 08/14/17 09:34 Johanny Colbert M.D. August 14, 2017 15:39
[2017-08-14 16:00] VITALS: BP 142/71
[2017-08-14 20:00] VITALS: BP 138/73
[2017-08-14] MEDS: Dyna-Hex 2% Top Sol 2oz TOPIC SCH (21:18)
[2017-08-15] VITALS: BP 143/66
[2017-08-15 04:00] VITALS: BP 112/67
--- NOTE | 2017-08-15 06:26 | General Progress Note ---
Assessment/Plan Problem List: (1) Cellulitis of abdominal wall ICD Codes: L03.311 - Cellulitis of abdominal wall SNOMED: 65323655 (2) Acute respiratory failure ICD Codes: J96.00 - Acute respiratory failure, unspecified whether with hypoxia or hypercapnia SNOMED: 60246848 (3) New onset type 1 diabetes mellitus, uncontrolled ICD Codes: E10.65 - Type 1 diabetes mellitus with hyperglycemia SNOMED: 637967849 (4) Necrotizing fasciitis ICD Codes: M72.6 - Necrotizing fasciitis SNOMED: 96532682 (5) DKA (diabetic ketoacidoses) ICD Codes: E13.10 - Other specified diabetes mellitus with ketoacidosis without coma SNOMED: 47377308, 634617268 Assessment/Plan reduce Levemir to 10 units bid continue NISS ac / hs Subjective Allergies: Coded Allergies: LATEX (Verified Allergy, Unknown, skin rash, 08/12/17) PENICILLINS (Verified Allergy, Unknown, 07/30/17) According to mother, the patient is allergic to Penicillins All Systems: reviewed and negative except above Subjective events noted - BG values on lower side - Levemir held last night Objective Last 24 Hour Vital Signs Date Time Temp Pulse Resp B/P (MAP) Pulse Ox O2 Delivery O2 Flow Rate FiO2 08/15/17 04:00 83 08/15/17 04:00 98.2 88 20 112/67 99 Nasal Cannula 4.0 98.2 08/15/17 00:00 98.1 87 20 143/66 98 Nasal Cannula 4.0 98.1 08/14/17 20:00 90 08/14/17 20:00 98.4 95 20 138/73 98 Nasal Cannula 4.0 98.4 08/14/17 19:25 96 Nasal Cannula 4.0 36 08/14/17 19:25 Nasal Cannula 4.0 36 08/14/17 16:00 99.5 88 22 142/71 96 Nasal Cannula 4.0 99.5 08/14/17 16:00 89 08/14/17 12:00 99.0 85 18 147/77 96 Nasal Cannula 4.0 99.0 08/14/17 12:00 82 08/14/17 08:00 100.3 89 26 152/82 96 Nasal Cannula 4.0 100.3 08/14/17 08:00 90 08/14/17 07:04 Nasal Cannula 4.0 36 08/14/17 07:03 95 Nasal Cannula 4.0 36 Intake and Output 08/14/17 08/15/17 19:00 07:00 Intake Total 420 ml 410 ml Output Total 1000 ml Balance -580 ml 410 ml Intake Oral 120 ml IV Total 300 ml 410 ml Output Urine Total 1000 ml Height (Feet): 5 Height (Inches): 5.00 Weight (Pounds): 324 General Appearance: no apparent distress Neck: normal alignment Cardiovascular: normal rate Respiratory/Chest: decreased breath sounds Abdomen: normal bowel sounds Pelvis: normal external exam Edema: 1+ Arm (L), 1+ Arm (R), 1+ Leg (L), 1+ Leg (R), 1+ Pedal (L), 1+ Pedal ( R), 1+ Generalized Objective Item Value Date Time Bedside Blood Glucose 81 mg/dl 08/14/17 2100 Bedside Blood Glucose 82 mg/dl 08/14/17 1630 Bedside Blood Glucose 94 mg/dl 08/14/17 1130 Bedside Blood Glucose 89 mg/dl 08/14/17 0942 Bedside Blood Glucose 96 mg/dl 08/14/17 0630 SAQIB TOM August 15, 2017 06:26
[2017-08-15] MEDS: NovoLOG Insulin Flexpen SUBQ SCH ×4 (06:30→22:45)
[2017-08-15] MEDS: Heparin 5000 units/ml inj SUBQ SCH ×3 (07:20→22:46)
[2017-08-15 08:00] VITALS: BP 156/77
[2017-08-15 08:17] LABS: HEMATOCRIT 23.7 % (37.0-47.0); HEMOGLOBIN 7.3 G/DL (12.0-16.0); MEAN CORPUSCULAR VOLUME 74 FL (80-99); PLATELET COUNT 349 K/UL (150-450); RED CELL DISTRIBUTION WIDTH 19.3 % (11.6-14.8); WHITE BLOOD COUNT 6.3 K/UL (4.8-10.8)
--- NOTE | 2017-08-15 08:18 | Pulmonology Progress Note ---
Assessment/Plan Assessment/Plan respiratory failure s/p extubation and now with reintubation DKA sepsis abd wall cellulitis fluid overload effusions and edema anemia PLAN JONO care BIPAP QHS encouraged but refused stable off vent for now keep negative monitor ABG repeat imaging much improved monitor for change and recommend from pulm standpoint improved Subjective Allergies: Coded Allergies: LATEX (Verified Allergy, Unknown, skin rash, 08/12/17) PENICILLINS (Verified Allergy, Unknown, 07/30/17) According to mother, the patient is allergic to Penicillins Subjective off vent- stable d/w RN care noted Objective Last 24 Hour Vital Signs Date Time Temp Pulse Resp B/P (MAP) Pulse Ox O2 Delivery O2 Flow Rate FiO2 08/15/17 04:00 83 08/15/17 04:00 98.2 88 20 112/67 99 Nasal Cannula 4.0 98.2 08/15/17 00:00 98.1 87 20 143/66 98 Nasal Cannula 4.0 98.1 08/14/17 20:00 90 08/14/17 20:00 98.4 95 20 138/73 98 Nasal Cannula 4.0 98.4 08/14/17 19:25 96 Nasal Cannula 4.0 36 08/14/17 19:25 Nasal Cannula 4.0 36 08/14/17 16:00 99.5 88 22 142/71 96 Nasal Cannula 4.0 99.5 08/14/17 16:00 89 08/14/17 12:00 99.0 85 18 147/77 96 Nasal Cannula 4.0 99.0 08/14/17 12:00 82 Intake and Output 08/14/17 08/15/17 19:00 07:00 Intake Total 420 ml 410 ml Output Total 1000 ml Balance -580 ml 410 ml Intake Oral 120 ml IV Total 300 ml 410 ml Output Urine Total 1000 ml Objective WDWN off vent and seems stable NAD reduced breath sounds bilaterally without rhonchi or wheeze [id number] without MRG NABS nontender no HSM no CC edema nonfocal Laboratory Tests 08/15/17 06:40: White Blood Count [Pending], Red Blood Count [Pending], Hemoglobin [Pending], Hematocrit [Pending], Mean Corpuscular Volume [Pending], Mean Corpuscular Hemoglobin [Pending], Mean Corpuscular Hemoglobin Concent [Pending], Red Cell Distribution Width [Pending], Platelet Count [Pending], Mean Platelet Volume [ Pending], Neutrophils (%) (Auto) [Pending], Lymphocytes (%) (Auto) [Pending], Monocytes (%) (Auto) [Pending], Eosinophils (%) (Auto) [Pending], Basophils (%) (Auto) [Pending], Sodium Level [Pending], Potassium Level [Pending], Chloride Level [Pending], Carbon Dioxide Level [Pending], Blood Urea Nitrogen [Pending], Creatinine [Pending], Estimat Glomerular Filtration Rate [Pending], Glucose Level [Pending], Calcium Level [Pending] Current Medications Medications (Trade) Dose Ordered Sig/Tommy Route PRN Reason Start Time Stop Time Status Last Admin Dose Admin Acetaminophen (Tylenol) 650 mg Q4H PRN NG Mild Pain/Temp > 100.5 08/13/17 21:00 09/07/17 20:59 Acetaminophen (Tylenol) 650 mg Q6H PRN RECTAL Prn pain/Temp > 100.5 08/13/17 18:00 09/12/17 17:59 Chlorhexidine Gluconate (Idalia-Hex 2%) 1 applic DAILY@2000 TOPIC 08/13/17 20:00 09/08/17 19:59 08/14/17 21:18 Clotrimazole (Lotrimin) 1 applic NEEDED TOPIC 08/13/17 18:00 09/12/17 17:59 08/14/17 03:28 Dextrose (Dextrose 50%) 25 ml STAT PRN IV Hypoglycemia 08/13/17 20:00 09/05/17 19:57 Dextrose (Dextrose 50%) 50 ml STAT PRN IV Hypoglycemia 08/13/17 20:00 09/05/17 19:57 Heparin Sodium (Porcine) (Heparin 5000 units/ml) 5,000 units Q8H SUBQ 08/13/17 23:00 09/05/17 14:59 08/15/17 07:20 Insulin Aspart (NovoLOG) BEFORE MEALS AND HS SUBQ 08/13/17 21:00 09/11/17 11:29 08/13/17 21:02 Insulin Detemir (Levemir) 10 units Q12HR SUBQ 08/15/17 09:00 09/06/17 08:59 Linezolid 300 ml @ 300 mls/hr Q12HR IVPB 08/13/17 21:00 08/19/17 20:59 08/14/17 21:18 Meropenem 500 mg/ Sodium Chloride 110 ml @ 220 mls/hr Q12HR@1000,2200 IVPB 08/13/17 22:00 08/18/17 21:59 08/14/17 21:18 Pantoprazole (Protonix) 40 mg BID IVP 08/14/17 09:00 09/06/17 08:59 08/14/17 17:32 Silver Sulfadiazine (Silvadene Cream 25gm) 1 applic DAILY TOPIC 08/14/17 09:00 08/31/17 10:29 08/14/17 09:34 Stew Hopson MD August 15, 2017 08:18
--- NOTE | 2017-08-15 08:30 | Nephrology Progress Note ---
Assessment/Plan Assessment/Plan 1. SCARLET- ATN non resolving. AM labs pending. HD held over the weekend and patient with good UOP - multifact ATN (sepsis induced inflammotory cytokine prox tub damage/ ishchemic ATN hypotension/vol dep) - remove nontunelled HD catheter once renal function starts to recover 2. DKA/Met Acidosis - resolved 3. Septic Shock- etiology likely from abd cellulitis. Abx mgmt per ID. - resolving 4. Hypotension- resolved 5. Resp FL- extubated 6. Hypok+/Ca/Phos- replace prn. AM labs pending 7. Anemia- When stable GI anticipates procedure. -PRN Bld tx Hgb <7 Subjective Date patient seen: August 15, 2017 Time patient seen: 08:28 ROS Limited/Unobtainable: No Constitutional: Reports: weakness Allergies: Coded Allergies: LATEX (Verified Allergy, Unknown, skin rash, 08/12/17) PENICILLINS (Verified Allergy, Unknown, 07/30/17) According to mother, the patient is allergic to Penicillins All Systems: reviewed and negative except above Subjective Patient much improved. PT/OT has started Objective Last 24 Hour Vital Signs Date Time Temp Pulse Resp B/P (MAP) Pulse Ox O2 Delivery O2 Flow Rate FiO2 08/15/17 04:00 83 08/15/17 04:00 98.2 88 20 112/67 99 Nasal Cannula 4.0 98.2 08/15/17 00:00 98.1 87 20 143/66 98 Nasal Cannula 4.0 98.1 08/14/17 20:00 90 08/14/17 20:00 98.4 95 20 138/73 98 Nasal Cannula 4.0 98.4 08/14/17 19:25 96 Nasal Cannula 4.0 36 08/14/17 19:25 Nasal Cannula 4.0 36 08/14/17 16:00 99.5 88 22 142/71 96 Nasal Cannula 4.0 99.5 08/14/17 16:00 89 08/14/17 12:00 99.0 85 18 147/77 96 Nasal Cannula 4.0 99.0 08/14/17 12:00 82 Intake and Output 08/14/17 08/15/17 19:00 07:00 Intake Total 420 ml 660 ml Output Total 1000 ml 850 ml Balance -580 ml -190 ml Intake Oral 120 ml 250 ml IV Total 300 ml 410 ml Output Urine Total 1000 ml 850 ml Laboratory Tests 08/15/17 06:40: White Blood Count 6.3, Red Blood Count 3.20L, Hemoglobin 7.3L, Hematocrit 23.7L , Mean Corpuscular Volume 74L, Mean Corpuscular Hemoglobin 22.9L, Mean Corpuscular Hemoglobin Concent 31.0L, Red Cell Distribution Width 19.3H, Platelet Count 349, Mean Platelet Volume 5.1L, Neutrophils (%) (Auto) , Lymphocytes (%) (Auto) , Monocytes (%) (Auto) , Eosinophils (%) (Auto) , Basophils (%) (Auto) , Neutrophils % (Manual) [Pending], Lymphocytes % (Manual) [Pending], Platelet Estimate [Pending], Platelet Morphology [Pending], Sodium Level [Pending], Potassium Level [Pending], Chloride Level [Pending], Carbon Dioxide Level [Pending], Blood Urea Nitrogen [Pending], Creatinine [Pending], Estimat Glomerular Filtration Rate [Pending], Glucose Level [Pending], Calcium Level [Pending] Height (Feet): 5 Height (Inches): 5.00 Weight (Pounds): 318 General Appearance: no apparent distress, alert EENT: PERRL/EOMI, normal ENT inspection Neck: normal alignment, supple, normal inspection Cardiovascular: normal rate, regular rhythm Respiratory/Chest: lungs clear, normal breath sounds Abdomen: normal bowel sounds, non tender, soft Edema: 1+ Arm (L), 1+ Arm (R), 1+ Leg (L), 1+ Leg (R), 1+ Pedal (L), 1+ Pedal ( R), 1+ Generalized Carlton Guzmán M.D. August 15, 2017 08:30
[2017-08-15 08:43] LABS: ANION GAP 10 mmol/L (5-15); BLOOD UREA NITROGEN 34 mg/dL (7-18); CALCIUM 8.2 MG/DL (8.5-10.1); CARBON DIOXIDE 28 MMOL/L (21-32); CHLORIDE 102 MMOL/L (98-107); CREATININE 3.6 MG/DL (0.55-1.30); POTASSIUM 3.8 MMOL/L (3.5-5.1); SODIUM 140 MMOL/L (136-145)
[2017-08-15] MEDS ORDERED: Levemir Flexpen SUBQ SCH ×3 (09:00→21:00)
[2017-08-15] MEDS: Pantoprazole Inj IVP SCH ×2 (09:30→17:23)
[2017-08-15] MEDS: Meropenem 500 MG in NS 110 ML IVPB SCH ×2 (10:54→22:00)
--- NOTE | 2017-08-15 10:58 | GI Progress Note ---
Assessment/Plan Problems: (1) Anemia ICD Codes: D64.9 - Anemia, unspecified SNOMED: 233092989 (2) Diabetes mellitus ICD Codes: E11.9 - Type 2 diabetes mellitus without complications SNOMED: 92060907 Status: stable Status Narrative Discussed with Dr. Hernandez. Assessment/Plan Assessment - Sepsis, improved - resp failure, resolved - DKA - abd wall cellulitis - obesity - Renal failure - Anemia >> OB (+)(-)(-) - extubated today - ST evaluation reviewed Recommendations - ground diet - ppi BID - elevated HOB - abx - follow labs and exam - transfuse PRN - fu labs Subjective Subjective limited Objective Last 24 Hour Vital Signs Date Time Temp Pulse Resp B/P (MAP) Pulse Ox O2 Delivery O2 Flow Rate FiO2 08/15/17 08:42 Nasal Cannula 4.0 36 08/15/17 08:41 93 Nasal Cannula 4.0 36 08/15/17 08:00 98.9 90 20 156/77 97 Nasal Cannula 4.0 98.9 08/15/17 08:00 87 08/15/17 04:00 83 08/15/17 04:00 98.2 88 20 112/67 99 Nasal Cannula 4.0 98.2 08/15/17 00:00 98.1 87 20 143/66 98 Nasal Cannula 4.0 98.1 08/14/17 20:00 90 08/14/17 20:00 98.4 95 20 138/73 98 Nasal Cannula 4.0 98.4 08/14/17 19:25 96 Nasal Cannula 4.0 36 08/14/17 19:25 Nasal Cannula 4.0 36 08/14/17 16:00 99.5 88 22 142/71 96 Nasal Cannula 4.0 99.5 08/14/17 16:00 89 08/14/17 12:00 99.0 85 18 147/77 96 Nasal Cannula 4.0 99.0 08/14/17 12:00 82 Intake and Output 08/14/17 08/15/17 19:00 07:00 Intake Total 420 ml 660 ml Output Total 1000 ml 850 ml Balance -580 ml -190 ml Intake Oral 120 ml 250 ml IV Total 300 ml 410 ml Output Urine Total 1000 ml 850 ml Laboratory Tests Test 08/15/17 06:40 08/15/17 09:30 White Blood Count 6.3 K/UL (4.8-10.8) Red Blood Count 3.20 M/UL (4.20-5.40) L Hemoglobin 7.3 G/DL (12.0-16.0) L Hematocrit 23.7 % (37.0-47.0) L Mean Corpuscular Volume 74 FL (80-99) L Mean Corpuscular Hemoglobin 22.9 PG (27.0-31.0) L Mean Corpuscular Hemoglobin Concent 31.0 G/DL (32.0-36.0) L Red Cell Distribution Width 19.3 % (11.6-14.8) H Platelet Count 349 K/UL (150-450) Mean Platelet Volume 5.1 FL (6.5-10.1) L Neutrophils (%) (Auto) % (45.0-75.0) Lymphocytes (%) (Auto) % (20.0-45.0) Monocytes (%) (Auto) % (1.0-10.0) Eosinophils (%) (Auto) % (0.0-3.0) Basophils (%) (Auto) % (0.0-2.0) Differential Total Cells Counted 100 Neutrophils % (Manual) 74 % (45-75) Lymphocytes % (Manual) 14 % (20-45) L Monocytes % (Manual) 5 % (1-10) Eosinophils % (Manual) 4 % (0-3) H Basophils % (Manual) 3 % (0-2) H Band Neutrophils 0 % (0-8) Platelet Estimate Adequate Platelet Morphology Normal Hypochromasia 3+ Anisocytosis 2+ Microcytosis 1+ Sodium Level 140 MMOL/L (136-145) Potassium Level 3.8 MMOL/L (3.5-5.1) Chloride Level 102 MMOL/L (98-107) Carbon Dioxide Level 28 MMOL/L (21-32) Anion Gap 10 mmol/L (5-15) Blood Urea Nitrogen 34 mg/dL (7-18) H Creatinine 3.6 MG/DL (0.55-1.30) H Estimat Glomerular Filtration Rate 13.5 mL/min (>60) Glucose Level 87 MG/DL (74-106) Calcium Level 8.2 MG/DL (8.5-10.1) L Ionized Calcium (Measured) 1.05 mmol/L (1.10-1.35) L Height (Feet): 5 Height (Inches): 5.00 Weight (Pounds): 318 General Appearance: WD/WN, no apparent distress, alert, overweight Cardiovascular: normal rate Respiratory/Chest: normal breath sounds, no respiratory distress Abdominal Exam: normal bowel sounds, non tender, soft Extremities: non-tender Ham Gonzalez NP August 15, 2017 10:58
[2017-08-15 12:00] VITALS: BP 139/64
--- NOTE | 2017-08-15 15:43 | Cardiac Electrophysiology PN ---
Assessment/Plan Assessment/Plan 1. S/P Septic shock due to diabetic ketoacidosis. On broad-spectrum IV antibiotic. Echocardiogram showed EF 60%. Rule out for IN 2. Diabetic ketoacidosis, on IV fluids and insulin. 3. S/P Cardiac arrest needing atropine. Due to respiratory failure. Now in SR 4. White count of 36,000, abdominal cellulitis. IV antibiotic per Dr. Colbert. 5. Morbid obesity. 6. Respiratory failure, reextubated 7. ARF on HD now via Right IJ. If improves, dialysis catheter will be removed. 8. Anemia hb 6.9. Transfused 2 units. Now around 8 9. Severe hyponatremia, sodium 118, Resolved now 140s 10. Dysphagia, passed swallow eval and now eating DW RN Subjective Subjective Transferred out of ICU alert. Objective Last 24 Hour Vital Signs Date Time Temp Pulse Resp B/P (MAP) Pulse Ox O2 Delivery O2 Flow Rate FiO2 08/15/17 12:00 98 08/15/17 12:00 99.8 94 20 139/64 96 Nasal Cannula 4.0 99.8 08/15/17 08:42 Nasal Cannula 4.0 36 08/15/17 08:41 93 Nasal Cannula 4.0 36 08/15/17 08:00 98.9 90 20 156/77 97 Nasal Cannula 4.0 98.9 08/15/17 08:00 87 08/15/17 04:00 83 08/15/17 04:00 98.2 88 20 112/67 99 Nasal Cannula 4.0 98.2 08/15/17 00:00 98.1 87 20 143/66 98 Nasal Cannula 4.0 98.1 08/14/17 20:00 90 08/14/17 20:00 98.4 95 20 138/73 98 Nasal Cannula 4.0 98.4 08/14/17 19:25 96 Nasal Cannula 4.0 36 08/14/17 19:25 Nasal Cannula 4.0 36 08/14/17 16:00 99.5 88 22 142/71 96 Nasal Cannula 4.0 99.5 08/14/17 16:00 89 Intake and Output 08/14/17 08/15/17 19:00 07:00 Intake Total 420 ml 660 ml Output Total 1000 ml 850 ml Balance -580 ml -190 ml Intake Oral 120 ml 250 ml IV Total 300 ml 410 ml Output Urine Total 1000 ml 850 ml Laboratory Tests Test 08/15/17 06:40 08/15/17 09:30 White Blood Count 6.3 K/UL (4.8-10.8) Red Blood Count 3.20 M/UL (4.20-5.40) L Hemoglobin 7.3 G/DL (12.0-16.0) L Hematocrit 23.7 % (37.0-47.0) L Mean Corpuscular Volume 74 FL (80-99) L Mean Corpuscular Hemoglobin 22.9 PG (27.0-31.0) L Mean Corpuscular Hemoglobin Concent 31.0 G/DL (32.0-36.0) L Red Cell Distribution Width 19.3 % (11.6-14.8) H Platelet Count 349 K/UL (150-450) Mean Platelet Volume 5.1 FL (6.5-10.1) L Neutrophils (%) (Auto) % (45.0-75.0) Lymphocytes (%) (Auto) % (20.0-45.0) Monocytes (%) (Auto) % (1.0-10.0) Eosinophils (%) (Auto) % (0.0-3.0) Basophils (%) (Auto) % (0.0-2.0) Differential Total Cells Counted 100 Neutrophils % (Manual) 74 % (45-75) Lymphocytes % (Manual) 14 % (20-45) L Monocytes % (Manual) 5 % (1-10) Eosinophils % (Manual) 4 % (0-3) H Basophils % (Manual) 3 % (0-2) H Band Neutrophils 0 % (0-8) Platelet Estimate Adequate Platelet Morphology Normal Hypochromasia 3+ Anisocytosis 2+ Microcytosis 1+ Sodium Level 140 MMOL/L (136-145) Potassium Level 3.8 MMOL/L (3.5-5.1) Chloride Level 102 MMOL/L (98-107) Carbon Dioxide Level 28 MMOL/L (21-32) Anion Gap 10 mmol/L (5-15) Blood Urea Nitrogen 34 mg/dL (7-18) H Creatinine 3.6 MG/DL (0.55-1.30) H Estimat Glomerular Filtration Rate 13.5 mL/min (>60) Glucose Level 87 MG/DL (74-106) Calcium Level 8.2 MG/DL (8.5-10.1) L Ionized Calcium (Measured) 1.05 mmol/L (1.10-1.35) L Objective HEAD AND NECK: No JVD, Right IJ Manjinder catheter LUNGS: Coarse rhonchi. CARDIOVASCULAR: Regular S1 and S2 with no gallop. ABDOMEN: Cellulitis of the lower abdomen and erythema. EXTREMITIES: 1+ pitting edema. Adama Trujillo MD August 15, 2017 15:43
--- NOTE | 2017-08-15 15:59 | Infectious Diseases Prog Note ---
Assessment/Plan Problems: (1) Cellulitis of abdominal wall Assessment & Plan: complicated with panniculitis, now improving with improvement of her lymphedema , will continue meropenem and zyvox empiric coverage for now to cover her left forearm cellulitis too , bone scan of the left leg ruled out osteomyelitis also her ankle X ray , surgery has been following , repeated blood culture is negative so far . she has slow recovery due to significant lymphedema and fluids overload. (2) UTI (urinary tract infection) Assessment & Plan: due to strep agalactiae and staph aureus, improved , she is already on meropenem and zyvox (3) Septic shock Assessment & Plan: due to the above , blood culture remains negative , has improvement in her leukocytosis, left femoral HD catheter was pulled out , repeated blood culture is negative , continue meropenem and zyvox for now to cover her forearm cellulitis too , monitor WBC (4) Respiratory failure requiring intubation Assessment & Plan: with fluids over load and pleural effusion, improving , was extubated , continue HD to remove more fluids as tolerated , monitor CXR. (5) SCARLET (acute kidney injury) Assessment & Plan: still on HD , has mild improvement in her urine output, nephrology is following, monitor UOP (6) DKA (diabetic ketoacidoses) Assessment & Plan: due to poorly controlled diabetes and sepsis, S/P insulin drip in the ICU , continue close monitor of her blood glucose to keep between 80 -120 (7) Leg wound, left Assessment & Plan: with infection due to staph aureus and klebsiella oxytoca, already on meropenem and zyvox , continue local wound care as per hospital protocol , bone scan ruled out underlying osteomyelitis also her X ray . (8) Forearm swelling Assessment & Plan: with redness and erythema, infiltration due to IV line, VS phlebitis, doubt cellulitis or abscess since she is on wide spectrum covergae of antibiotics . venous doppler was negative for DVT , continue heat pads Subjective Constitutional: Reports: fatigue HEENT: Reports: no symptoms Respiratory: Reports: no symptoms Breasts: Reports: no symptoms Cardiovascular: Reports: no symptoms Gastrointestinal/Abdominal: Reports: no symptoms Genitourinary: Reports: no symptoms Neurologic: Reports: no symptoms Psychiatric: Reports: no symptoms Skin: Reports: ulcer, other - left forearm redness , less Endocrine: Reports: no symptoms Hematologic: Reports: no symptoms Musculoskeletal: Reports: swelling Allergies: Coded Allergies: LATEX (Verified Allergy, Unknown, skin rash, 08/12/17) PENICILLINS (Verified Allergy, Unknown, 07/30/17) According to mother, the patient is allergic to Penicillins Subjective she was awake and , complained of left forearm redness and swelling with pain , had low grade fever , no chills today. has less lymphedema in her lower abdomen skin and less redness. mild left groin lymphadenopathy small skin breaks drying out at the folds site . Objective Vital Signs Last 24 Hour Vital Signs Date Time Temp Pulse Resp B/P (MAP) Pulse Ox O2 Delivery O2 Flow Rate FiO2 08/15/17 12:00 98 08/15/17 12:00 99.8 94 20 139/64 96 Nasal Cannula 4.0 99.8 08/15/17 08:42 Nasal Cannula 4.0 36 08/15/17 08:41 93 Nasal Cannula 4.0 36 08/15/17 08:00 98.9 90 20 156/77 97 Nasal Cannula 4.0 98.9 08/15/17 08:00 87 08/15/17 04:00 83 08/15/17 04:00 98.2 88 20 112/67 99 Nasal Cannula 4.0 98.2 08/15/17 00:00 98.1 87 20 143/66 98 Nasal Cannula 4.0 98.1 08/14/17 20:00 90 08/14/17 20:00 98.4 95 20 138/73 98 Nasal Cannula 4.0 98.4 08/14/17 19:25 96 Nasal Cannula 4.0 36 08/14/17 19:25 Nasal Cannula 4.0 36 08/14/17 16:00 99.5 88 22 142/71 96 Nasal Cannula 4.0 99.5 08/14/17 16:00 89 Height (Feet): 5 Height (Inches): 5.00 Weight (Pounds): 318 General Appearance: WD/WN, no acute distress HEENT: normocephalic, atraumatic, anicteric, mucous membranes moist Respiratory/Chest: chest wall non-tender, lungs clear, normal breath sounds, no respiratory distress, no accessory muscle use Cardiovascular: normal peripheral pulses, normal rate, regular rhythm, no gallop/murmur, no JVD Abdomen: normal bowel sounds, soft, non tender, no organomegaly, non distended , no mass, no scars, other - left lower redness with mild skin break Extremities: no cyanosis, no clubbing Skin: no rash, ulcers, other - left forearm red and less tender Neurologic/Psychiatric: alert, oriented x 3, responsive Lymphatic: no neck adenopathy, no groin adenopathy Laboratory Tests Test 08/15/17 06:40 08/15/17 09:30 White Blood Count 6.3 K/UL (4.8-10.8) Red Blood Count 3.20 M/UL (4.20-5.40) L Hemoglobin 7.3 G/DL (12.0-16.0) L Hematocrit 23.7 % (37.0-47.0) L Mean Corpuscular Volume 74 FL (80-99) L Mean Corpuscular Hemoglobin 22.9 PG (27.0-31.0) L Mean Corpuscular Hemoglobin Concent 31.0 G/DL (32.0-36.0) L Red Cell Distribution Width 19.3 % (11.6-14.8) H Platelet Count 349 K/UL (150-450) Mean Platelet Volume 5.1 FL (6.5-10.1) L Neutrophils (%) (Auto) % (45.0-75.0) Lymphocytes (%) (Auto) % (20.0-45.0) Monocytes (%) (Auto) % (1.0-10.0) Eosinophils (%) (Auto) % (0.0-3.0) Basophils (%) (Auto) % (0.0-2.0) Differential Total Cells Counted 100 Neutrophils % (Manual) 74 % (45-75) Lymphocytes % (Manual) 14 % (20-45) L Monocytes % (Manual) 5 % (1-10) Eosinophils % (Manual) 4 % (0-3) H Basophils % (Manual) 3 % (0-2) H Band Neutrophils 0 % (0-8) Platelet Estimate Adequate Platelet Morphology Normal Hypochromasia 3+ Anisocytosis 2+ Microcytosis 1+ Sodium Level 140 MMOL/L (136-145) Potassium Level 3.8 MMOL/L (3.5-5.1) Chloride Level 102 MMOL/L (98-107) Carbon Dioxide Level 28 MMOL/L (21-32) Anion Gap 10 mmol/L (5-15) Blood Urea Nitrogen 34 mg/dL (7-18) H Creatinine 3.6 MG/DL (0.55-1.30) H Estimat Glomerular Filtration Rate 13.5 mL/min (>60) Glucose Level 87 MG/DL (74-106) Calcium Level 8.2 MG/DL (8.5-10.1) L Ionized Calcium (Measured) 1.05 mmol/L (1.10-1.35) L Current Medications Medications (Trade) Dose Ordered Sig/Tommy Route PRN Reason Start Time Stop Time Status Last Admin Dose Admin Acetaminophen (Tylenol) 650 mg Q4H PRN NG Mild Pain/Temp > 100.5 08/13/17 21:00 09/07/17 20:59 Acetaminophen (Tylenol) 650 mg Q6H PRN RECTAL Prn pain/Temp > 100.5 08/13/17 18:00 09/12/17 17:59 Chlorhexidine Gluconate (Idalia-Hex 2%) 1 applic DAILY@2000 TOPIC 08/13/17 20:00 09/08/17 19:59 08/14/17 21:18 Clotrimazole (Lotrimin) 1 applic NEEDED TOPIC 08/13/17 18:00 09/12/17 17:59 08/14/17 03:28 Dextrose (Dextrose 50%) 25 ml STAT PRN IV Hypoglycemia 08/13/17 20:00 09/05/17 19:57 Dextrose (Dextrose 50%) 50 ml STAT PRN IV Hypoglycemia 08/13/17 20:00 09/05/17 19:57 Heparin Sodium (Porcine) (Heparin 5000 units/ml) 5,000 units Q8H SUBQ 08/13/17 23:00 09/05/17 14:59 08/15/17 14:12 Insulin Aspart (NovoLOG) BEFORE MEALS AND HS SUBQ 08/13/17 21:00 09/11/17 11:29 08/15/17 11:06 Insulin Detemir (Levemir) 10 units Q12HR SUBQ 08/15/17 09:00 09/06/17 08:59 Linezolid 300 ml @ 300 mls/hr Q12HR IVPB 08/13/17 21:00 08/19/17 20:59 08/15/17 09:29 Meropenem 500 mg/ Sodium Chloride 110 ml @ 220 mls/hr Q12HR@1000,2200 IVPB 08/13/17 22:00 08/18/17 21:59 08/15/17 10:54 Pantoprazole (Protonix) 40 mg BID IVP 08/14/17 09:00 09/06/17 08:59 08/15/17 09:30 Silver Sulfadiazine (Silvadene Cream 25gm) 1 applic DAILY TOPIC 08/14/17 09:00 08/31/17 10:29 08/15/17 09:29 Johanny Colbert M.D. August 15, 2017 15:59
[2017-08-15 16:00] VITALS: BP 155/80
[2017-08-15 20:00] VITALS: BP 132/71
[2017-08-15] MEDS ORDERED: Acetaminophen 650mg/20.3ml NG PRN (21:00)
[2017-08-15] MEDS ORDERED: Acetaminophen 650 MG SUPP RECTAL PRN (21:02)
[2017-08-15] MEDS: Dyna-Hex 2% Top Sol 2oz TOPIC SCH (22:27)
[2017-08-16] VITALS: BP 123/72
[2017-08-16 04:00] VITALS: BP 135/69
--- NOTE | 2017-08-16 06:25 | General Progress Note ---
Assessment/Plan Problem List: (1) Cellulitis of abdominal wall ICD Codes: L03.311 - Cellulitis of abdominal wall SNOMED: 14646491 (2) Acute respiratory failure ICD Codes: J96.00 - Acute respiratory failure, unspecified whether with hypoxia or hypercapnia SNOMED: 89832060 (3) New onset type 1 diabetes mellitus, uncontrolled ICD Codes: E10.65 - Type 1 diabetes mellitus with hyperglycemia SNOMED: 806503489 (4) Necrotizing fasciitis ICD Codes: M72.6 - Necrotizing fasciitis SNOMED: 81534270 (5) DKA (diabetic ketoacidoses) ICD Codes: E13.10 - Other specified diabetes mellitus with ketoacidosis without coma SNOMED: 96518174, 310829130 Assessment/Plan reduce Levemir to 6 units bid continue NISS ac / hs Subjective Allergies: Coded Allergies: LATEX (Verified Allergy, Unknown, skin rash, 08/12/17) PENICILLINS (Verified Allergy, Unknown, 07/30/17) According to mother, the patient is allergic to Penicillins All Systems: reviewed and negative except above Subjective events noted - BG well controlled - Levemir was held Objective Last 24 Hour Vital Signs Date Time Temp Pulse Resp B/P (MAP) Pulse Ox O2 Delivery O2 Flow Rate FiO2 08/16/17 04:00 95 08/16/17 04:00 99.5 97 22 135/69 93 Nasal Cannula 4.0 99.5 08/16/17 00:00 91 08/16/17 00:00 98.6 97 22 123/72 95 Nasal Cannula 4.0 98.6 08/15/17 20:00 96 08/15/17 20:00 98.9 94 20 132/71 96 Nasal Cannula 4.0 98.9 08/15/17 19:32 95 Nasal Cannula 4.0 36 08/15/17 19:32 Nasal Cannula 4.0 36 08/15/17 16:00 89 08/15/17 16:00 99.0 93 20 155/80 96 Nasal Cannula 4.0 99.0 08/15/17 12:00 98 08/15/17 12:00 99.8 94 20 139/64 96 Nasal Cannula 4.0 99.8 08/15/17 08:42 Nasal Cannula 4.0 36 08/15/17 08:41 93 Nasal Cannula 4.0 36 08/15/17 08:00 98.9 90 20 156/77 97 Nasal Cannula 4.0 98.9 08/15/17 08:00 87 Intake and Output 08/15/17 08/16/17 19:00 07:00 Output Total 850 ml Balance -850 ml Output Urine Total 850 ml Laboratory Tests 08/15/17 06:40: White Blood Count 6.3, Red Blood Count 3.20L, Hemoglobin 7.3L, Hematocrit 23.7L , Mean Corpuscular Volume 74L, Mean Corpuscular Hemoglobin 22.9L, Mean Corpuscular Hemoglobin Concent 31.0L, Red Cell Distribution Width 19.3H, Platelet Count 349, Mean Platelet Volume 5.1L, Neutrophils (%) (Auto) , Lymphocytes (%) (Auto) , Monocytes (%) (Auto) , Eosinophils (%) (Auto) , Basophils (%) (Auto) , Differential Total Cells Counted 100, Neutrophils % ( Manual) 74, Lymphocytes % (Manual) 14L, Monocytes % (Manual) 5, Eosinophils % ( Manual) 4H, Basophils % (Manual) 3H, Band Neutrophils 0, Platelet Estimate Adequate, Platelet Morphology Normal, Hypochromasia 3+, Anisocytosis 2+, Microcytosis 1+, Sodium Level 140, Potassium Level 3.8, Chloride Level 102, Carbon Dioxide Level 28, Anion Gap 10, Blood Urea Nitrogen 34H, Creatinine 3.6H , Estimat Glomerular Filtration Rate 13.5, Glucose Level 87, Calcium Level 8.2L 08/15/17 09:30: Ionized Calcium (Measured) 1.05L Height (Feet): 5 Height (Inches): 5.00 Weight (Pounds): 318 General Appearance: no apparent distress Neck: normal alignment Cardiovascular: normal rate Respiratory/Chest: decreased breath sounds Abdomen: normal bowel sounds Pelvis: normal external exam Objective Current Medications Medications (Trade) Dose Ordered Sig/Tommy Route PRN Reason Start Time Stop Time Status Last Admin Dose Admin Acetaminophen (Tylenol) 650 mg Q4H PRN NG Mild Pain/Temp > 100.5 08/15/17 21:00 09/07/17 20:59 Acetaminophen (Tylenol) 650 mg Q6H PRN RECTAL Prn pain/Temp > 100.5 08/15/17 21:02 09/14/17 21:01 Chlorhexidine Gluconate (Idalia-Hex 2%) 1 applic DAILY@1999 TOPIC 08/15/17 21:00 09/08/17 19:59 08/15/17 22:27 Clotrimazole (Lotrimin) 1 applic NEEDED TOPIC 08/16/17 18:00 09/12/17 17:59 UNV Dextrose (Dextrose 50%) 25 ml STAT PRN IV Hypoglycemia 08/15/17 21:03 09/14/17 21:02 Dextrose (Dextrose 50%) 50 ml STAT PRN IV Hypoglycemia 08/15/17 21:03 09/14/17 21:02 Heparin Sodium (Porcine) (Heparin 5000 units/ml) 5,000 units Q8H SUBQ 08/15/17 23:00 09/05/17 14:59 08/15/17 22:46 Insulin Aspart (NovoLOG) BEFORE MEALS AND HS SUBQ 08/15/17 21:00 09/11/17 11:29 08/15/17 22:45 Insulin Detemir (Levemir) 10 units Q12HR SUBQ 08/15/17 21:00 09/06/17 08:59 Linezolid 300 ml @ 300 mls/hr Q12HR IVPB 08/15/17 21:00 08/19/17 23:59 08/15/17 21:00 Meropenem 500 mg/ Sodium Chloride 110 ml @ 220 mls/hr Q12HR@1000,2200 IVPB 08/15/17 22:00 08/18/17 23:59 08/15/17 22:00 Pantoprazole (Protonix) 40 mg BID IVP 08/16/17 09:00 09/06/17 08:59 Silver Sulfadiazine (Silvadene Cream 25gm) 1 applic DAILY TOPIC 08/16/17 09:00 08/31/17 10:29 Item Value Date Time Bedside Blood Glucose 163 mg/dl H 08/15/17 2245 Bedside Blood Glucose 143 mg/dl H 08/15/17 1725 Bedside Blood Glucose 134 mg/dl H 08/15/17 1132 Bedside Blood Glucose 82 mg/dl 08/15/17 0900 Bedside Blood Glucose 84 mg/dl 08/15/17 0630 SAQIB TOM August 16, 2017 06:25
[2017-08-16] MEDS: NovoLOG Insulin Flexpen SUBQ SCH ×4 (06:58→20:59)
[2017-08-16] MEDS: Heparin 5000 units/ml inj SUBQ SCH ×3 (06:59→22:50)
--- NOTE | 2017-08-16 07:36 | Pulmonology Progress Note ---
Assessment/Plan Assessment/Plan respiratory failure s/p extubation and now with reintubation DKA sepsis abd wall cellulitis fluid overload effusions and edema anemia PLAN JONO care BIPAP QHS encouraged but continues to be refused stable off vent for now keep negative monitor ABG for change as needed repeat imaging much improved monitor for change and recommend from pulm standpoint improved Subjective Allergies: Coded Allergies: LATEX (Verified Allergy, Unknown, skin rash, 08/12/17) PENICILLINS (Verified Allergy, Unknown, 07/30/17) According to mother, the patient is allergic to Penicillins Subjective off vent- stable d/w RN care noted and reviewed Objective Last 24 Hour Vital Signs Date Time Temp Pulse Resp B/P (MAP) Pulse Ox O2 Delivery O2 Flow Rate FiO2 08/16/17 04:00 95 08/16/17 04:00 99.5 97 22 135/69 93 Nasal Cannula 4.0 99.5 08/16/17 00:00 91 08/16/17 00:00 98.6 97 22 123/72 95 Nasal Cannula 4.0 98.6 08/15/17 20:00 96 08/15/17 20:00 98.9 94 20 132/71 96 Nasal Cannula 4.0 98.9 08/15/17 19:32 95 Nasal Cannula 4.0 36 08/15/17 19:32 Nasal Cannula 4.0 36 08/15/17 16:00 89 08/15/17 16:00 99.0 93 20 155/80 96 Nasal Cannula 4.0 99.0 08/15/17 12:00 98 08/15/17 12:00 99.8 94 20 139/64 96 Nasal Cannula 4.0 99.8 08/15/17 08:42 Nasal Cannula 4.0 36 08/15/17 08:41 93 Nasal Cannula 4.0 36 08/15/17 08:00 98.9 90 20 156/77 97 Nasal Cannula 4.0 98.9 08/15/17 08:00 87 Intake and Output 08/15/17 08/16/17 19:00 07:00 Output Total 850 ml Balance -850 ml Output Urine Total 850 ml # Voids 2 Objective WDWN off vent and seems stable NAD reduced breath sounds bilaterally without rhonchi or wheeze [id number] without MRG NABS nontender no HSM no CC edema nonfocal Laboratory Tests 08/15/17 09:30: Ionized Calcium (Measured) 1.05L 08/16/17 06:35: White Blood Count [Pending], Red Blood Count [Pending], Hemoglobin [Pending], Hematocrit [Pending], Mean Corpuscular Volume [Pending], Mean Corpuscular Hemoglobin [Pending], Mean Corpuscular Hemoglobin Concent [Pending], Red Cell Distribution Width [Pending], Platelet Count [Pending], Mean Platelet Volume [ Pending], Neutrophils (%) (Auto) [Pending], Lymphocytes (%) (Auto) [Pending], Monocytes (%) (Auto) [Pending], Eosinophils (%) (Auto) [Pending], Basophils (%) (Auto) [Pending], Sodium Level [Pending], Potassium Level [Pending], Chloride Level [Pending], Carbon Dioxide Level [Pending], Blood Urea Nitrogen [Pending], Creatinine [Pending], Estimat Glomerular Filtration Rate [Pending], Glucose Level [Pending], Calcium Level [Pending] Current Medications Medications (Trade) Dose Ordered Sig/Tommy Route PRN Reason Start Time Stop Time Status Last Admin Dose Admin Acetaminophen (Tylenol) 650 mg Q4H PRN NG Mild Pain/Temp > 100.5 08/15/17 21:00 09/07/17 20:59 Acetaminophen (Tylenol) 650 mg Q6H PRN RECTAL Prn pain/Temp > 100.5 08/15/17 21:02 09/14/17 21:01 Chlorhexidine Gluconate (Idalia-Hex 2%) 1 applic DAILY@1999 TOPIC 08/15/17 21:00 09/08/17 19:59 08/15/17 22:27 Clotrimazole (Lotrimin) 1 applic NEEDED TOPIC 08/16/17 18:00 09/12/17 17:59 UNV Dextrose (Dextrose 50%) 25 ml STAT PRN IV Hypoglycemia 08/15/17 21:03 09/14/17 21:02 Dextrose (Dextrose 50%) 50 ml STAT PRN IV Hypoglycemia 08/15/17 21:03 09/14/17 21:02 Heparin Sodium (Porcine) (Heparin 5000 units/ml) 5,000 units Q8H SUBQ 08/15/17 23:00 09/05/17 14:59 08/16/17 06:59 Insulin Aspart (NovoLOG) BEFORE MEALS AND HS SUBQ 08/15/17 21:00 09/11/17 11:29 08/16/17 06:58 Insulin Detemir (Levemir) 6 units Q12HR SUBQ 08/16/17 09:00 09/06/17 08:59 Linezolid 300 ml @ 300 mls/hr Q12HR IVPB 08/15/17 21:00 08/19/17 23:59 08/15/17 21:00 Meropenem 500 mg/ Sodium Chloride 110 ml @ 220 mls/hr Q12HR@1000,2200 IVPB 08/15/17 22:00 08/18/17 23:59 08/15/17 22:00 Pantoprazole (Protonix) 40 mg BID IVP 08/16/17 09:00 09/06/17 08:59 Silver Sulfadiazine (Silvadene Cream 25gm) 1 applic DAILY TOPIC 08/16/17 09:00 08/31/17 10:29 Stew Hopson MD August 16, 2017 07:36
[2017-08-16 07:39] LABS: HEMATOCRIT 23.5 % (37.0-47.0); HEMOGLOBIN 7.4 G/DL (12.0-16.0); MEAN CORPUSCULAR VOLUME 73 FL (80-99); PLATELET COUNT 323 K/UL (150-450); RED CELL DISTRIBUTION WIDTH 18.9 % (11.6-14.8); WHITE BLOOD COUNT 5.6 K/UL (4.8-10.8)
--- NOTE | 2017-08-16 07:52 | Nephrology Progress Note ---
Assessment/Plan Assessment/Plan 1. SCARLET- ATN now resolving, Cr has been improving off dialysis - multifact ATN (sepsis induced inflammotory cytokine prox tub damage/ ishchemic ATN hypotension/vol dep) - remove nontunelled HD catheter later this week 2. DKA/Met Acidosis - resolved 3. Septic Shock- etiology likely from abd cellulitis. Abx mgmt per ID. - resolving much improved 4. Hypotension- resolved 5. Resp FL- extubated 6. Hypok+/Ca/Phos- replace calcium today 7. Anemia- When stable GI anticipates procedure. -PRN Bld tx Hgb <7 - Hgb 7.4 Subjective Date patient seen: August 16, 2017 Time patient seen: 07:50 ROS Limited/Unobtainable: No Constitutional: Reports: weakness Allergies: Coded Allergies: LATEX (Verified Allergy, Unknown, skin rash, 08/12/17) PENICILLINS (Verified Allergy, Unknown, 07/30/17) According to mother, the patient is allergic to Penicillins All Systems: reviewed and negative except above Subjective Patient much improved. PT/OT and plan on DC later this week Objective Last 24 Hour Vital Signs Date Time Temp Pulse Resp B/P (MAP) Pulse Ox O2 Delivery O2 Flow Rate FiO2 08/16/17 04:00 95 08/16/17 04:00 99.5 97 22 135/69 93 Nasal Cannula 4.0 99.5 08/16/17 00:00 91 08/16/17 00:00 98.6 97 22 123/72 95 Nasal Cannula 4.0 98.6 08/15/17 20:00 96 08/15/17 20:00 98.9 94 20 132/71 96 Nasal Cannula 4.0 98.9 08/15/17 19:32 95 Nasal Cannula 4.0 36 08/15/17 19:32 Nasal Cannula 4.0 36 08/15/17 16:00 89 08/15/17 16:00 99.0 93 20 155/80 96 Nasal Cannula 4.0 99.0 08/15/17 12:00 98 08/15/17 12:00 99.8 94 20 139/64 96 Nasal Cannula 4.0 99.8 08/15/17 08:42 Nasal Cannula 4.0 36 08/15/17 08:41 93 Nasal Cannula 4.0 36 5/21/18 08:00 98.9 90 20 156/77 97 Nasal Cannula 4.0 98.9 08/15/17 08:00 87 Intake and Output 08/15/17 08/16/17 19:00 07:00 Output Total 850 ml Balance -850 ml Output Urine Total 850 ml # Voids 2 Laboratory Tests 08/15/17 09:30: Ionized Calcium (Measured) 1.05L 08/16/17 06:35: White Blood Count 5.6, Red Blood Count 3.20L, Hemoglobin 7.4L, Hematocrit 23.5L , Mean Corpuscular Volume 73L, Mean Corpuscular Hemoglobin 23.0L, Mean Corpuscular Hemoglobin Concent 31.3L, Red Cell Distribution Width 18.9H, Platelet Count 323, Mean Platelet Volume 5.0L, Neutrophils (%) (Auto) , Lymphocytes (%) (Auto) , Monocytes (%) (Auto) , Eosinophils (%) (Auto) , Basophils (%) (Auto) , Neutrophils % (Manual) [Pending], Lymphocytes % (Manual) [Pending], Platelet Estimate [Pending], Platelet Morphology [Pending], Sodium Level [Pending], Potassium Level [Pending], Chloride Level [Pending], Carbon Dioxide Level [Pending], Blood Urea Nitrogen [Pending], Creatinine [Pending], Estimat Glomerular Filtration Rate [Pending], Glucose Level [Pending], Calcium Level [Pending] Height (Feet): 5 Height (Inches): 5.00 Weight (Pounds): 318 General Appearance: WD/WN, no apparent distress, alert EENT: PERRL/EOMI, normal ENT inspection Neck: non-tender, normal alignment Cardiovascular: normal rate, regular rhythm Respiratory/Chest: lungs clear, normal breath sounds Abdomen: normal bowel sounds, non tender Edema: 1+ Arm (L), 1+ Arm (R), 1+ Leg (L), 1+ Leg (R), 1+ Pedal (L), 1+ Pedal ( R), 1+ Generalized Carlton Guzmán M.D. August 16, 2017 07:52
[2017-08-16 07:55] LABS: ANION GAP 11 mmol/L (5-15); BLOOD UREA NITROGEN 32 mg/dL (7-18); CALCIUM 7.9 MG/DL (8.5-10.1); CARBON DIOXIDE 26 MMOL/L (21-32); CHLORIDE 102 MMOL/L (98-107); CREATININE 3.2 MG/DL (0.55-1.30); POTASSIUM 3.9 MMOL/L (3.5-5.1); SODIUM 139 MMOL/L (136-145)
[2017-08-16 08:00] VITALS: BP 140/68
[2017-08-16] MEDS ORDERED: Calcium Gluconate 10% 1 GM in NS 110 ML IVPB ONE (09:00)
[2017-08-16] MEDS: Pantoprazole Inj IVP SCH ×2 (09:55→18:04)
[2017-08-16] MEDS: Meropenem 500 MG in NS 110 ML IVPB SCH ×2 (09:57→22:48)
[2017-08-16] MEDS: Levemir Flexpen SUBQ SCH ×2 (10:18→20:58)
[2017-08-16 12:00] VITALS: BP 157/82
--- NOTE | 2017-08-16 12:58 | Infectious Diseases Prog Note ---
Assessment/Plan Problems: (1) Cellulitis of abdominal wall Assessment & Plan: complicated with panniculitis, improving with improvement of her lymphedema , will continue meropenem and zyvox empiric coverage for now to cover her left forearm cellulitis too , bone scan of the left leg ruled out osteomyelitis also her ankle X ray , repeated blood culture is negative so far . she has slow recovery due to significant lymphedema and fluids overload. will add fungal coverage for her skin folds and recommend to keep area well ventilated (2) UTI (urinary tract infection) Assessment & Plan: due to strep agalactiae and staph aureus, improved , she is already on meropenem and zyvox (3) Septic shock Assessment & Plan: resolved, due to the above , repeated blood culture is negative , continue meropenem and zyvox for now to cover her forearm cellulitis too , monitor WBC (4) Respiratory failure requiring intubation Assessment & Plan: with fluids over load and pleural effusion, improving , was extubated , continue HD to remove more fluids as tolerated , monitor CXR. (5) SCARLET (acute kidney injury) Assessment & Plan: still on HD , has mild improvement in her urine output, nephrology is following, monitor UOP (6) DKA (diabetic ketoacidoses) Assessment & Plan: due to poorly controlled diabetes and sepsis, S/P insulin drip in the ICU , continue close monitor of her blood glucose to keep between 80 -120 (7) Leg wound, left Assessment & Plan: with infection due to staph aureus and klebsiella oxytoca, already on meropenem and zyvox , continue local wound care as per hospital protocol , bone scan ruled out underlying osteomyelitis also her X ray . (8) Forearm swelling Assessment & Plan: with redness and erythema, infiltration due to IV line, VS phlebitis, doubt an abscess since she is on wide spectrum covergae of antibiotics . venous doppler was negative for DVT , continue heat pads Subjective Constitutional: Reports: no symptoms HEENT: Reports: no symptoms Respiratory: Reports: no symptoms Breasts: Reports: no symptoms Cardiovascular: Reports: no symptoms Gastrointestinal/Abdominal: Reports: no symptoms Genitourinary: Reports: no symptoms Neurologic: Reports: no symptoms Psychiatric: Reports: no symptoms Skin: Reports: ulcer, other - redness on the left forearm Endocrine: Reports: no symptoms Hematologic: Reports: no symptoms Musculoskeletal: Reports: no symptoms Allergies: Coded Allergies: LATEX (Verified Allergy, Unknown, skin rash, 08/12/17) PENICILLINS (Verified Allergy, Unknown, 07/30/17) According to mother, the patient is allergic to Penicillins Subjective she was awake and alert, has less left forearm redness and swelling . no fever , no chills today. has less lymphedema in her lower abdomen skin and less redness. small skin breaks drying out at the folds site with redness . Objective Vital Signs Last 24 Hour Vital Signs Date Time Temp Pulse Resp B/P (MAP) Pulse Ox O2 Delivery O2 Flow Rate FiO2 08/16/17 12:00 98.9 97 18 157/82 98 Nasal Cannula 4.0 98.9 08/16/17 08:00 98.2 96 18 140/68 95 Nasal Cannula 4.0 98.2 08/16/17 07:49 91 08/16/17 07:36 Nasal Cannula 2.0 28 08/16/17 07:36 96 Nasal Cannula 2.0 28 08/16/17 04:00 95 08/16/17 04:00 99.5 97 22 135/69 93 Nasal Cannula 4.0 99.5 08/16/17 00:00 91 08/16/17 00:00 98.6 97 22 123/72 95 Nasal Cannula 4.0 98.6 08/15/17 20:00 96 08/15/17 20:00 98.9 94 20 132/71 96 Nasal Cannula 4.0 98.9 08/15/17 19:32 95 Nasal Cannula 4.0 36 08/15/17 19:32 Nasal Cannula 4.0 36 08/15/17 16:00 89 08/15/17 16:00 99.0 93 20 155/80 96 Nasal Cannula 4.0 99.0 Height (Feet): 5 Height (Inches): 5.00 Weight (Pounds): 158 General Appearance: WD/WN, no acute distress HEENT: normocephalic, atraumatic, anicteric, mucous membranes moist, PERRL Respiratory/Chest: chest wall non-tender, lungs clear, normal breath sounds, no respiratory distress, no accessory muscle use Cardiovascular: normal peripheral pulses, normal rate, regular rhythm, no gallop/murmur, no JVD Abdomen: normal bowel sounds, soft, non tender, no organomegaly, non distended , no mass, no scars, other - left lower abdomen skin folds with redness at the folds Genitourinary: normal external genitalia Extremities: no cyanosis, no clubbing Skin: no rash, no lesions, ulcers - left lateral ankle, abdominal folds Neurologic/Psychiatric: alert, oriented x 3, responsive Laboratory Tests Test 08/16/17 06:35 White Blood Count 5.6 K/UL (4.8-10.8) Red Blood Count 3.20 M/UL (4.20-5.40) L Hemoglobin 7.4 G/DL (12.0-16.0) L Hematocrit 23.5 % (37.0-47.0) L Mean Corpuscular Volume 73 FL (80-99) L Mean Corpuscular Hemoglobin 23.0 PG (27.0-31.0) L Mean Corpuscular Hemoglobin Concent 31.3 G/DL (32.0-36.0) L Red Cell Distribution Width 18.9 % (11.6-14.8) H Platelet Count 323 K/UL (150-450) Mean Platelet Volume 5.0 FL (6.5-10.1) L Neutrophils (%) (Auto) % (45.0-75.0) Lymphocytes (%) (Auto) % (20.0-45.0) Monocytes (%) (Auto) % (1.0-10.0) Eosinophils (%) (Auto) % (0.0-3.0) Basophils (%) (Auto) % (0.0-2.0) Differential Total Cells Counted 100 Neutrophils % (Manual) 73 % (45-75) Lymphocytes % (Manual) 14 % (20-45) L Monocytes % (Manual) 7 % (1-10) Eosinophils % (Manual) 4 % (0-3) H Basophils % (Manual) 2 % (0-2) Band Neutrophils 0 % (0-8) Platelet Estimate Adequate Platelet Morphology Normal Hypochromasia 3+ Anisocytosis 2+ Microcytosis 3+ Sodium Level 139 MMOL/L (136-145) Potassium Level 3.9 MMOL/L (3.5-5.1) Chloride Level 102 MMOL/L (98-107) Carbon Dioxide Level 26 MMOL/L (21-32) Anion Gap 11 mmol/L (5-15) Blood Urea Nitrogen 32 mg/dL (7-18) H Creatinine 3.2 MG/DL (0.55-1.30) H Estimat Glomerular Filtration Rate 15.4 mL/min (>60) Glucose Level 137 MG/DL (74-106) H Calcium Level 7.9 MG/DL (8.5-10.1) L Current Medications Medications (Trade) Dose Ordered Sig/Tommy Route PRN Reason Start Time Stop Time Status Last Admin Dose Admin Acetaminophen (Tylenol) 650 mg Q4H PRN NG Mild Pain/Temp > 100.5 08/15/17 21:00 09/07/17 20:59 Acetaminophen (Tylenol) 650 mg Q6H PRN RECTAL Prn pain/Temp > 100.5 08/15/17 21:02 09/14/17 21:01 Chlorhexidine Gluconate (Idalia-Hex 2%) 1 applic DAILY@2000 TOPIC 08/15/17 21:00 09/08/17 19:59 08/15/17 22:27 Clotrimazole (Lotrimin) 1 applic NEEDED TOPIC 08/16/17 18:00 09/12/17 17:59 UNV Dextrose (Dextrose 50%) 25 ml STAT PRN IV Hypoglycemia 08/15/17 21:03 09/14/17 21:02 Dextrose (Dextrose 50%) 50 ml STAT PRN IV Hypoglycemia 08/15/17 21:03 09/14/17 21:02 Heparin Sodium (Porcine) (Heparin 5000 units/ml) 5,000 units Q8H SUBQ 08/15/17 23:00 09/05/17 14:59 08/16/17 06:59 Insulin Aspart (NovoLOG) BEFORE MEALS AND HS SUBQ 08/15/17 21:00 09/11/17 11:29 08/16/17 12:43 Insulin Detemir (Levemir) 6 units Q12HR SUBQ 08/16/17 09:00 09/06/17 08:59 08/16/17 10:18 Linezolid 300 ml @ 300 mls/hr Q12HR IVPB 08/15/17 21:00 08/19/17 23:59 08/16/17 09:55 Meropenem 500 mg/ Sodium Chloride 110 ml @ 220 mls/hr Q12HR@1000,2200 IVPB 08/15/17 22:00 08/18/17 23:59 08/16/17 09:57 Pantoprazole (Protonix) 40 mg BID IVP 08/16/17 09:00 09/06/17 08:59 08/16/17 09:55 Silver Sulfadiazine (Silvadene Cream 25gm) 1 applic DAILY TOPIC 08/16/17 09:00 08/31/17 10:29 08/16/17 09:56 Johanny Colbert M.D. August 16, 2017 12:58
--- NOTE | 2017-08-16 14:41 | GI Progress Note ---
Assessment/Plan Problems: (1) Anemia ICD Codes: D64.9 - Anemia, unspecified SNOMED: 488851759 (2) Diabetes mellitus ICD Codes: E11.9 - Type 2 diabetes mellitus without complications SNOMED: 34441621 Status: progressing Status Narrative Discussed with Dr. Hernandez. Assessment/Plan Assessment - Sepsis, improved - resp failure, resolved - DKA - abd wall cellulitis - obesity - Renal failure - Anemia >> OB (+)(-)(-) - extubated today - ST evaluation reviewed Recommendations - soft diet - ppi BID - elevated HOB - abx - follow labs and exam - transfuse PRN - OT/PT evaluation - fu labs Subjective Subjective limited Objective Last 24 Hour Vital Signs Date Time Temp Pulse Resp B/P (MAP) Pulse Ox O2 Delivery O2 Flow Rate FiO2 08/16/17 12:00 98.9 97 18 157/82 98 Nasal Cannula 4.0 98.9 08/16/17 08:00 98.2 96 18 140/68 95 Nasal Cannula 4.0 98.2 08/16/17 07:49 91 08/16/17 07:36 Nasal Cannula 2.0 28 08/16/17 07:36 96 Nasal Cannula 2.0 28 08/16/17 04:00 95 08/16/17 04:00 99.5 97 22 135/69 93 Nasal Cannula 4.0 99.5 08/16/17 00:00 91 08/16/17 00:00 98.6 97 22 123/72 95 Nasal Cannula 4.0 98.6 08/15/17 20:00 96 08/15/17 20:00 98.9 94 20 132/71 96 Nasal Cannula 4.0 98.9 08/15/17 19:32 95 Nasal Cannula 4.0 36 08/15/17 19:32 Nasal Cannula 4.0 36 08/15/17 16:00 89 08/15/17 16:00 99.0 93 20 155/80 96 Nasal Cannula 4.0 99.0 Intake and Output 08/15/17 08/16/17 19:00 07:00 Output Total 850 ml Balance -850 ml Output Urine Total 850 ml # Voids 2 Laboratory Tests Test 08/16/17 06:35 White Blood Count 5.6 K/UL (4.8-10.8) Red Blood Count 3.20 M/UL (4.20-5.40) L Hemoglobin 7.4 G/DL (12.0-16.0) L Hematocrit 23.5 % (37.0-47.0) L Mean Corpuscular Volume 73 FL (80-99) L Mean Corpuscular Hemoglobin 23.0 PG (27.0-31.0) L Mean Corpuscular Hemoglobin Concent 31.3 G/DL (32.0-36.0) L Red Cell Distribution Width 18.9 % (11.6-14.8) H Platelet Count 323 K/UL (150-450) Mean Platelet Volume 5.0 FL (6.5-10.1) L Neutrophils (%) (Auto) % (45.0-75.0) Lymphocytes (%) (Auto) % (20.0-45.0) Monocytes (%) (Auto) % (1.0-10.0) Eosinophils (%) (Auto) % (0.0-3.0) Basophils (%) (Auto) % (0.0-2.0) Differential Total Cells Counted 100 Neutrophils % (Manual) 73 % (45-75) Lymphocytes % (Manual) 14 % (20-45) L Monocytes % (Manual) 7 % (1-10) Eosinophils % (Manual) 4 % (0-3) H Basophils % (Manual) 2 % (0-2) Band Neutrophils 0 % (0-8) Platelet Estimate Adequate Platelet Morphology Normal Hypochromasia 3+ Anisocytosis 2+ Microcytosis 3+ Sodium Level 139 MMOL/L (136-145) Potassium Level 3.9 MMOL/L (3.5-5.1) Chloride Level 102 MMOL/L (98-107) Carbon Dioxide Level 26 MMOL/L (21-32) Anion Gap 11 mmol/L (5-15) Blood Urea Nitrogen 32 mg/dL (7-18) H Creatinine 3.2 MG/DL (0.55-1.30) H Estimat Glomerular Filtration Rate 15.4 mL/min (>60) Glucose Level 137 MG/DL (74-106) H Calcium Level 7.9 MG/DL (8.5-10.1) L Height (Feet): 5 Height (Inches): 5.00 Weight (Pounds): 158 General Appearance: WD/WN, no apparent distress, alert, morbidly obese Cardiovascular: normal rate Respiratory/Chest: normal breath sounds, no respiratory distress Abdominal Exam: normal bowel sounds, non tender, soft Extremities: non-tender Ham Gonzalez NP August 16, 2017 14:41
[2017-08-16] MEDS: Nystatin Powder 100,000 units/gm 15gm TOPIC SCH ×2 (15:20→18:03)
--- NOTE | 2017-08-16 15:52 | Cardiac Electrophysiology PN ---
Assessment/Plan Assessment/Plan 1. S/P Septic shock due to diabetic ketoacidosis. On broad-spectrum IV antibiotic. Echocardiogram showed EF 60%. Rule out for DE 2. Diabetic ketoacidosis, on IV fluids and insulin. 3. S/P Cardiac arrest needing atropine. Due to respiratory failure. Now in SR 4. White count of 36,000, abdominal cellulitis. IV antibiotic per Dr. Colbert. 5. Morbid obesity. 6. Respiratory failure, reextubated 7. ARF on HD via Right IJ. Improved, dialysis catheter will be removed tomorrow. 8. Anemia hb 6.9. Transfused 2 units. Now around 8 9. Severe hyponatremia, sodium 118, Resolved now 140s 10. Dysphagia, passed swallow eval and now eating DW RN Subjective Subjective Alert on tele. No further HD. Eating soft food. Objective Last 24 Hour Vital Signs Date Time Temp Pulse Resp B/P (MAP) Pulse Ox O2 Delivery O2 Flow Rate FiO2 08/16/17 12:00 98.9 97 18 157/82 98 Nasal Cannula 4.0 98.9 08/16/17 11:41 95 08/16/17 08:00 98.2 96 18 140/68 95 Nasal Cannula 4.0 98.2 08/16/17 07:49 91 08/16/17 07:36 Nasal Cannula 2.0 28 08/16/17 07:36 96 Nasal Cannula 2.0 28 08/16/17 04:00 95 08/16/17 04:00 99.5 97 22 135/69 93 Nasal Cannula 4.0 99.5 08/16/17 00:00 91 08/16/17 00:00 98.6 97 22 123/72 95 Nasal Cannula 4.0 98.6 08/15/17 20:00 96 08/15/17 20:00 98.9 94 20 132/71 96 Nasal Cannula 4.0 98.9 08/15/17 19:32 95 Nasal Cannula 4.0 36 08/15/17 19:32 Nasal Cannula 4.0 36 08/15/17 16:00 89 08/15/17 16:00 99.0 93 20 155/80 96 Nasal Cannula 4.0 99.0 Intake and Output 08/15/17 08/16/17 19:00 07:00 Output Total 850 ml Balance -850 ml Output Urine Total 850 ml # Voids 2 Laboratory Tests Test 08/16/17 06:35 White Blood Count 5.6 K/UL (4.8-10.8) Red Blood Count 3.20 M/UL (4.20-5.40) L Hemoglobin 7.4 G/DL (12.0-16.0) L Hematocrit 23.5 % (37.0-47.0) L Mean Corpuscular Volume 73 FL (80-99) L Mean Corpuscular Hemoglobin 23.0 PG (27.0-31.0) L Mean Corpuscular Hemoglobin Concent 31.3 G/DL (32.0-36.0) L Red Cell Distribution Width 18.9 % (11.6-14.8) H Platelet Count 323 K/UL (150-450) Mean Platelet Volume 5.0 FL (6.5-10.1) L Neutrophils (%) (Auto) % (45.0-75.0) Lymphocytes (%) (Auto) % (20.0-45.0) Monocytes (%) (Auto) % (1.0-10.0) Eosinophils (%) (Auto) % (0.0-3.0) Basophils (%) (Auto) % (0.0-2.0) Differential Total Cells Counted 100 Neutrophils % (Manual) 73 % (45-75) Lymphocytes % (Manual) 14 % (20-45) L Monocytes % (Manual) 7 % (1-10) Eosinophils % (Manual) 4 % (0-3) H Basophils % (Manual) 2 % (0-2) Band Neutrophils 0 % (0-8) Platelet Estimate Adequate Platelet Morphology Normal Hypochromasia 3+ Anisocytosis 2+ Microcytosis 3+ Sodium Level 139 MMOL/L (136-145) Potassium Level 3.9 MMOL/L (3.5-5.1) Chloride Level 102 MMOL/L (98-107) Carbon Dioxide Level 26 MMOL/L (21-32) Anion Gap 11 mmol/L (5-15) Blood Urea Nitrogen 32 mg/dL (7-18) H Creatinine 3.2 MG/DL (0.55-1.30) H Estimat Glomerular Filtration Rate 15.4 mL/min (>60) Glucose Level 137 MG/DL (74-106) H Calcium Level 7.9 MG/DL (8.5-10.1) L Objective HEAD AND NECK: No JVD, Right IJ Manjinder catheter LUNGS: Coarse rhonchi. CARDIOVASCULAR: Regular S1 and S2 with no gallop. ABDOMEN: Cellulitis of the lower abdomen and erythema. EXTREMITIES: 1+ pitting edema. Adama Trujillo MD August 16, 2017 15:52
[2017-08-16 16:00] VITALS: BP 151/81
[2017-08-16 20:00] VITALS: BP 152/81
[2017-08-16] MEDS: Dyna-Hex 2% Top Sol 2oz TOPIC SCH (20:56)
[2017-08-17] VITALS (7 sets, daily range): BP systolic 133–161; BP diastolic 66–113
[2017-08-17] MEDS: Heparin 5000 units/ml inj SUBQ SCH ×3 (06:03→21:57)
[2017-08-17] MEDS: NovoLOG Insulin Flexpen SUBQ SCH ×4 (06:03→21:00)
[2017-08-17 06:19] LABS: HEMOGLOBIN 7.2 G/DL (12.0-16.0); MEAN CORPUSCULAR VOLUME 74 FL (80-99); PLATELET COUNT 307 K/UL (150-450); RED BLOOD COUNT 3.13 M/UL (4.20-5.40); WHITE BLOOD COUNT 5.1 K/UL (4.8-10.8)
--- NOTE | 2017-08-17 06:26 | General Progress Note ---
Assessment/Plan Problem List: (1) Cellulitis of abdominal wall ICD Codes: L03.311 - Cellulitis of abdominal wall SNOMED: 76211321 (2) Acute respiratory failure ICD Codes: J96.00 - Acute respiratory failure, unspecified whether with hypoxia or hypercapnia SNOMED: 27550274 (3) New onset type 1 diabetes mellitus, uncontrolled ICD Codes: E10.65 - Type 1 diabetes mellitus with hyperglycemia SNOMED: 854624272 (4) Necrotizing fasciitis ICD Codes: M72.6 - Necrotizing fasciitis SNOMED: 30267555 (5) DKA (diabetic ketoacidoses) ICD Codes: E13.10 - Other specified diabetes mellitus with ketoacidosis without coma SNOMED: 44807896, 752218936 Assessment/Plan continue Levemir 6 units bid add Starlix 60 mg ac tid continue NISS ac / hs Subjective Allergies: Coded Allergies: LATEX (Verified Allergy, Unknown, skin rash, 08/12/17) PENICILLINS (Verified Allergy, Unknown, 07/30/17) According to mother, the patient is allergic to Penicillins All Systems: reviewed and negative except above Subjective events noted - not on BiPAP Objective Last 24 Hour Vital Signs Date Time Temp Pulse Resp B/P (MAP) Pulse Ox O2 Delivery O2 Flow Rate FiO2 08/17/17 04:00 89 08/17/17 04:00 100.0 92 20 148/113 92 Nasal Cannula 4.0 100.0 08/17/17 00:00 99.5 93 30 138/66 96 Nasal Cannula 4.0 99.5 08/17/17 00:00 91 08/16/17 21:53 97 Nasal Cannula 2.0 28 08/16/17 21:53 Nasal Cannula 2.0 28 08/16/17 20:00 99.3 98 21 152/81 90 Nasal Cannula 4.0 99.3 08/16/17 20:00 95 08/16/17 16:00 99.7 101 18 151/81 97 Nasal Cannula 4.0 99.7 08/16/17 15:23 100 08/16/17 12:00 98.9 97 18 157/82 98 Nasal Cannula 4.0 98.9 08/16/17 11:41 95 08/16/17 08:00 98.2 96 18 140/68 95 Nasal Cannula 4.0 98.2 08/16/17 07:49 91 08/16/17 07:36 Nasal Cannula 2.0 28 08/16/17 07:36 96 Nasal Cannula 2.0 28 Intake and Output 08/16/17 08/17/17 19:00 07:00 Intake Total 640 ml 150 ml Output Total 200 ml 500 ml Balance 440 ml -350 ml Intake Oral 640 ml 150 ml Output Urine Total 200 ml 500 ml # Voids 2 # Bowel Movements 1 Laboratory Tests 08/16/17 06:35: White Blood Count 5.6, Red Blood Count 3.20L, Hemoglobin 7.4L, Hematocrit 23.5L , Mean Corpuscular Volume 73L, Mean Corpuscular Hemoglobin 23.0L, Mean Corpuscular Hemoglobin Concent 31.3L, Red Cell Distribution Width 18.9H, Platelet Count 323, Mean Platelet Volume 5.0L, Neutrophils (%) (Auto) , Lymphocytes (%) (Auto) , Monocytes (%) (Auto) , Eosinophils (%) (Auto) , Basophils (%) (Auto) , Differential Total Cells Counted 100, Neutrophils % ( Manual) 73, Lymphocytes % (Manual) 14L, Monocytes % (Manual) 7, Eosinophils % ( Manual) 4H, Basophils % (Manual) 2, Band Neutrophils 0, Platelet Estimate Adequate, Platelet Morphology Normal, Hypochromasia 3+, Anisocytosis 2+, Microcytosis 3+, Sodium Level 139, Potassium Level 3.9, Chloride Level 102, Carbon Dioxide Level 26, Anion Gap 11, Blood Urea Nitrogen 32H, Creatinine 3.2H , Estimat Glomerular Filtration Rate 15.4, Glucose Level 137H, Calcium Level 7.9L 08/17/17 05:00: White Blood Count 5.1, Red Blood Count 3.13L, Hemoglobin 7.2L, Hematocrit 23.0L , Mean Corpuscular Volume 74L, Mean Corpuscular Hemoglobin 23.2L, Mean Corpuscular Hemoglobin Concent 31.5L, Red Cell Distribution Width 19.0H, Platelet Count 307, Mean Platelet Volume 5.3L, Neutrophils (%) (Auto) , Lymphocytes (%) (Auto) , Monocytes (%) (Auto) , Eosinophils (%) (Auto) , Basophils (%) (Auto) Height (Feet): 5 Height (Inches): 5.00 Weight (Pounds): 158 General Appearance: no apparent distress Neck: normal alignment Cardiovascular: normal peripheral pulses Respiratory/Chest: lungs clear Abdomen: normal bowel sounds Edema: 1+ Arm (L), 1+ Arm (R), 1+ Leg (L), 1+ Leg (R), 1+ Pedal (L), 1+ Pedal ( R), 1+ Generalized Objective Current Medications Medications (Trade) Dose Ordered Sig/Tommy Route PRN Reason Start Time Stop Time Status Last Admin Dose Admin Acetaminophen (Tylenol) 650 mg Q4H PRN NG Mild Pain/Temp > 100.5 08/15/17 21:00 09/07/17 20:59 Acetaminophen (Tylenol) 650 mg Q6H PRN RECTAL Prn pain/Temp > 100.5 08/15/17 21:02 09/14/17 21:01 Chlorhexidine Gluconate (Idalia-Hex 2%) 1 applic DAILY@1999 TOPIC 08/15/17 21:00 09/08/17 19:59 08/16/17 20:56 Clotrimazole (Lotrimin) 1 applic BID TOPIC 08/16/17 18:00 09/15/17 17:59 08/16/17 18:04 Dextrose (Dextrose 50%) 25 ml STAT PRN IV Hypoglycemia 08/15/17 21:03 09/14/17 21:02 Dextrose (Dextrose 50%) 50 ml STAT PRN IV Hypoglycemia 08/15/17 21:03 09/14/17 21:02 Fluconazole (Diflucan) 200 mg DAILY ORAL 08/17/17 09:00 08/24/17 08:59 Heparin Sodium (Porcine) (Heparin 5000 units/ml) 5,000 units Q8H SUBQ 08/15/17 23:00 09/05/17 14:59 08/17/17 06:03 Insulin Aspart (NovoLOG) BEFORE MEALS AND HS SUBQ 08/15/17 21:00 09/11/17 11:29 08/17/17 06:03 Insulin Detemir (Levemir) 6 units Q12HR SUBQ 08/16/17 09:00 09/06/17 08:59 08/16/17 20:58 Linezolid 300 ml @ 300 mls/hr Q12HR IVPB 08/15/17 21:00 08/19/17 23:59 08/16/17 20:57 Meropenem 500 mg/ Sodium Chloride 110 ml @ 220 mls/hr Q12HR@1000,2200 IVPB 08/15/17 22:00 08/18/17 23:59 08/16/17 22:48 Nystatin (Nystop Powder) 1 applic THREE TIMES A DAY TOPIC 08/16/17 14:00 09/15/17 13:59 08/16/17 18:03 Pantoprazole (Protonix) 40 mg BID IVP 08/16/17 09:00 09/06/17 08:59 08/16/17 18:04 Silver Sulfadiazine (Silvadene Cream 25gm) 1 applic DAILY TOPIC 08/16/17 09:00 08/31/17 10:29 08/16/17 09:56 Item Value Date Time Bedside Blood Glucose 135 mg/dl H 08/17/17 0603 Bedside Blood Glucose 136 mg/dl H 08/16/17 2100 Bedside Blood Glucose 168 mg/dl H 08/16/17 1802 Bedside Blood Glucose 214 mg/dl H 08/16/17 1243 Bedside Blood Glucose 134 mg/dl H 08/16/17 1018 SAQIB TOM August 17, 2017 06:26
[2017-08-17 06:29] LABS: ANION GAP 9 mmol/L (5-15); BLOOD UREA NITROGEN 30 mg/dL (7-18); CALCIUM 8.1 MG/DL (8.5-10.1); CARBON DIOXIDE 26 MMOL/L (21-32); CHLORIDE 104 MMOL/L (98-107); CREATININE 2.8 MG/DL (0.55-1.30); POTASSIUM 3.8 MMOL/L (3.5-5.1); SODIUM 139 MMOL/L (136-145)
[2017-08-17] MEDS: Nateglinide 60mg tab ORAL SCH ×3 (06:38→16:53)
[2017-08-17] MEDS ORDERED: Fluconazole 100mg tab ORAL SCH (09:00)
[2017-08-17] MEDS: Pantoprazole Inj IVP SCH (09:03)
[2017-08-17] MEDS: Nystatin Powder 100,000 units/gm 15gm TOPIC SCH ×2 (09:04→17:54)
[2017-08-17] MEDS: Meropenem 500 MG in NS 110 ML IVPB SCH ×2 (09:05→21:55)
[2017-08-17] MEDS: Levemir Flexpen SUBQ SCH ×2 (09:07→21:59)
--- NOTE | 2017-08-17 09:12 | Nephrology Progress Note ---
Assessment/Plan Assessment/Plan 1. SCARLET- ATN resolving, Cr down to 2.8. Will remove dialysis catheter tomorrow - multifact ATN (sepsis induced inflammotory cytokine prox tub damage/ ishchemic ATN hypotension/vol dep) 2. DKA/Met Acidosis - resolved 3. Septic Shock- etiology likely from abd cellulitis. Abx mgmt per ID. - resolved 4. Hypotension- resolved 5. Resp FL- extubated 6. Hypok+/Ca/Phos- replace calcium prn 7. Anemia- When stable GI anticipates procedure. -PRN Bld tx Hgb <7 Plan for DC Sat once cleared by all consultants Subjective Date patient seen: August 17, 2017 Time patient seen: 09:08 ROS Limited/Unobtainable: No Constitutional: Reports: weakness Allergies: Coded Allergies: LATEX (Verified Allergy, Unknown, skin rash, 08/12/17) PENICILLINS (Verified Allergy, Unknown, 07/30/17) According to mother, the patient is allergic to Penicillins Subjective Patient much improved. PT/OT and patient now mobile and out of bed Objective Last 24 Hour Vital Signs Date Time Temp Pulse Resp B/P (MAP) Pulse Ox O2 Delivery O2 Flow Rate FiO2 08/17/17 04:00 89 08/17/17 04:00 100.0 92 20 148/113 92 Nasal Cannula 4.0 100.0 08/17/17 00:00 99.5 93 30 138/66 96 Nasal Cannula 4.0 99.5 08/17/17 00:00 91 08/16/17 21:53 97 Nasal Cannula 2.0 28 08/16/17 21:53 Nasal Cannula 2.0 28 08/16/17 20:00 99.3 98 21 152/81 90 Nasal Cannula 4.0 99.3 08/16/17 20:00 95 08/16/17 16:00 99.7 101 18 151/81 97 Nasal Cannula 4.0 99.7 08/16/17 15:23 100 08/16/17 12:00 98.9 97 18 157/82 98 Nasal Cannula 4.0 98.9 08/16/17 11:41 95 Intake and Output 08/16/17 08/17/17 19:00 07:00 Intake Total 640 ml 150 ml Output Total 200 ml 500 ml Balance 440 ml -350 ml Intake Oral 640 ml 150 ml Output Urine Total 200 ml 500 ml # Voids 2 # Bowel Movements 1 Laboratory Tests 08/17/17 05:00: White Blood Count 5.1, Red Blood Count 3.13L, Hemoglobin 7.2L, Hematocrit 23.0L , Mean Corpuscular Volume 74L, Mean Corpuscular Hemoglobin 23.2L, Mean Corpuscular Hemoglobin Concent 31.5L, Red Cell Distribution Width 19.0H, Platelet Count 307, Mean Platelet Volume 5.3L, Neutrophils (%) (Auto) , Lymphocytes (%) (Auto) , Monocytes (%) (Auto) , Eosinophils (%) (Auto) , Basophils (%) (Auto) , Sodium Level 139, Potassium Level 3.8, Chloride Level 104 , Carbon Dioxide Level 26, Anion Gap 9, Blood Urea Nitrogen 30H, Creatinine 2.8H , Estimat Glomerular Filtration Rate 18.0, Glucose Level 133H, Calcium Level 8.1L Height (Feet): 5 Height (Inches): 5.00 Weight (Pounds): 331 General Appearance: no apparent distress, alert EENT: PERRL/EOMI, normal ENT inspection Neck: normal alignment, supple Cardiovascular: normal rate, regular rhythm Respiratory/Chest: lungs clear, normal breath sounds Abdomen: non tender, soft Edema: no edema noted Arm (L), no edema noted Arm (R), no edema noted Leg (L), no edema noted Leg (R), no edema noted Pedal (L), no edema noted Pedal (R), no edema noted Generalized Carlton Guzmán M.D. August 17, 2017 09:12
--- NOTE | 2017-08-17 09:18 | Pulmonology Progress Note ---
Assessment/Plan Assessment/Plan respiratory failure s/p extubation and now with reintubation DKA sepsis abd wall cellulitis fluid overload effusions and edema anemia PLAN JONO care BIPAP QHS encouraged but continues to be refused stable off vent for now and monitor keep negative seems improved monitor for change and recommend from pulm standpoint improved Subjective Allergies: Coded Allergies: LATEX (Verified Allergy, Unknown, skin rash, 08/12/17) PENICILLINS (Verified Allergy, Unknown, 07/30/17) According to mother, the patient is allergic to Penicillins Subjective off vent- stable d/w RN remains stable Objective Last 24 Hour Vital Signs Date Time Temp Pulse Resp B/P (MAP) Pulse Ox O2 Delivery O2 Flow Rate FiO2 08/17/17 04:00 89 08/17/17 04:00 100.0 92 20 148/113 92 Nasal Cannula 4.0 100.0 08/17/17 00:00 99.5 93 30 138/66 96 Nasal Cannula 4.0 99.5 08/17/17 00:00 91 08/16/17 21:53 97 Nasal Cannula 2.0 28 08/16/17 21:53 Nasal Cannula 2.0 28 08/16/17 20:00 99.3 98 21 152/81 90 Nasal Cannula 4.0 99.3 08/16/17 20:00 95 08/16/17 16:00 99.7 101 18 151/81 97 Nasal Cannula 4.0 99.7 08/16/17 15:23 100 08/16/17 12:00 98.9 97 18 157/82 98 Nasal Cannula 4.0 98.9 08/16/17 11:41 95 Intake and Output 08/16/17 08/17/17 19:00 07:00 Intake Total 640 ml 150 ml Output Total 200 ml 500 ml Balance 440 ml -350 ml Intake Oral 640 ml 150 ml Output Urine Total 200 ml 500 ml # Voids 2 # Bowel Movements 1 Objective WDWN off vent and seems stable NAD reduced breath sounds bilaterally without rhonchi or wheeze [id number] without MRG NABS nontender no HSM no CC edema nonfocal Laboratory Tests 08/17/17 05:00: White Blood Count 5.1, Red Blood Count 3.13L, Hemoglobin 7.2L, Hematocrit 23.0L , Mean Corpuscular Volume 74L, Mean Corpuscular Hemoglobin 23.2L, Mean Corpuscular Hemoglobin Concent 31.5L, Red Cell Distribution Width 19.0H, Platelet Count 307, Mean Platelet Volume 5.3L, Neutrophils (%) (Auto) , Lymphocytes (%) (Auto) , Monocytes (%) (Auto) , Eosinophils (%) (Auto) , Basophils (%) (Auto) , Sodium Level 139, Potassium Level 3.8, Chloride Level 104 , Carbon Dioxide Level 26, Anion Gap 9, Blood Urea Nitrogen 30H, Creatinine 2.8H , Estimat Glomerular Filtration Rate 18.0, Glucose Level 133H, Calcium Level 8.1L Current Medications Medications (Trade) Dose Ordered Sig/Tommy Route PRN Reason Start Time Stop Time Status Last Admin Dose Admin Acetaminophen (Tylenol) 650 mg Q4H PRN NG Mild Pain/Temp > 100.5 08/15/17 21:00 09/07/17 20:59 Acetaminophen (Tylenol) 650 mg Q6H PRN RECTAL Prn pain/Temp > 100.5 08/15/17 21:02 09/14/17 21:01 Chlorhexidine Gluconate (Idalia-Hex 2%) 1 applic DAILY@2000 TOPIC 08/15/17 21:00 09/08/17 19:59 08/16/17 20:56 Clotrimazole (Lotrimin) 1 applic BID TOPIC 08/16/17 18:00 09/15/17 17:59 08/17/17 09:04 Dextrose (Dextrose 50%) 25 ml STAT PRN IV Hypoglycemia 08/15/17 21:03 09/14/17 21:02 Dextrose (Dextrose 50%) 50 ml STAT PRN IV Hypoglycemia 08/15/17 21:03 09/14/17 21:02 Fluconazole (Diflucan) 200 mg DAILY ORAL 08/17/17 09:00 08/24/17 08:59 08/17/17 09:04 Heparin Sodium (Porcine) (Heparin 5000 units/ml) 5,000 units Q8H SUBQ 08/15/17 23:00 09/05/17 14:59 08/17/17 06:03 Insulin Aspart (NovoLOG) BEFORE MEALS AND HS SUBQ 08/15/17 21:00 09/11/17 11:29 08/17/17 06:03 Insulin Detemir (Levemir) 6 units Q12HR SUBQ 08/16/17 09:00 09/06/17 08:59 08/17/17 09:07 Linezolid 300 ml @ 300 mls/hr Q12HR IVPB 08/15/17 21:00 08/19/17 23:59 08/17/17 09:04 Meropenem 500 mg/ Sodium Chloride 110 ml @ 220 mls/hr Q12HR@1000,2200 IVPB 08/15/17 22:00 08/18/17 23:59 08/17/17 09:05 Nateglinide (Starlix) 60 mg TIAC ORAL 08/17/17 06:30 09/16/17 06:29 08/17/17 06:38 Nystatin (Nystop Powder) 1 applic THREE TIMES A DAY TOPIC 08/16/17 14:00 09/15/17 13:59 08/17/17 09:04 Pantoprazole (Protonix) 40 mg BID IVP 08/16/17 09:00 09/06/17 08:59 08/17/17 09:03 Silver Sulfadiazine (Silvadene Cream 25gm) 1 applic DAILY TOPIC 08/16/17 09:00 08/31/17 10:29 08/17/17 09:04 Stew Hopson MD August 17, 2017 09:18
--- NOTE | 2017-08-17 11:07 | GI Progress Note ---
Assessment/Plan Problems: (1) Anemia ICD Codes: D64.9 - Anemia, unspecified SNOMED: 907839778 (2) Diabetes mellitus ICD Codes: E11.9 - Type 2 diabetes mellitus without complications SNOMED: 51059438 Status: stable, progressing Status Narrative Discussed with Dr. Hernandez. Assessment/Plan Assessment - Sepsis, improved - resp failure, resolved - DKA - abd wall cellulitis - obesity - Renal failure - Anemia >> OB (+)(-)(-) - extubated today - ST evaluation reviewed Recommendations - soft diet, tolerating - ppi daily - elevated HOB - abx - follow labs and exam - transfuse PRN - OT/PT evaluation - fu labs The patient was seen and examined at bedside and all new and available data was reviewed in the patients chart. I agree with the above findings, impression and plan. (Patient seen earlier today. Signature stamp does not reflect patient encounter time.). - Gianni Hernandez MD Subjective Gastrointestinal/Abdominal: Reports: no symptoms Subjective tolerating food Objective Last 24 Hour Vital Signs Date Time Temp Pulse Resp B/P (MAP) Pulse Ox O2 Delivery O2 Flow Rate FiO2 08/17/17 08:28 109 08/17/17 08:00 97.5 104 20 158/86 94 Nasal Cannula 4.0 97.5 08/17/17 04:00 89 08/17/17 04:00 100.0 92 20 148/113 92 Nasal Cannula 4.0 100.0 08/17/17 00:00 99.5 93 30 138/66 96 Nasal Cannula 4.0 99.5 08/17/17 00:00 91 08/16/17 21:53 97 Nasal Cannula 2.0 28 08/16/17 21:53 Nasal Cannula 2.0 28 08/16/17 20:00 99.3 98 21 152/81 90 Nasal Cannula 4.0 99.3 08/16/17 20:00 95 08/16/17 16:00 99.7 101 18 151/81 97 Nasal Cannula 4.0 99.7 08/16/17 15:23 100 08/16/17 12:00 98.9 97 18 157/82 98 Nasal Cannula 4.0 98.9 08/16/17 11:41 95 Intake and Output 08/16/17 08/17/17 19:00 07:00 Intake Total 640 ml 150 ml Output Total 200 ml 500 ml Balance 440 ml -350 ml Intake Oral 640 ml 150 ml Output Urine Total 200 ml 500 ml # Voids 2 # Bowel Movements 1 Laboratory Tests Test 08/17/17 05:00 White Blood Count 5.1 K/UL (4.8-10.8) Red Blood Count 3.13 M/UL (4.20-5.40) L Hemoglobin 7.2 G/DL (12.0-16.0) L Hematocrit 23.0 % (37.0-47.0) L Mean Corpuscular Volume 74 FL (80-99) L Mean Corpuscular Hemoglobin 23.2 PG (27.0-31.0) L Mean Corpuscular Hemoglobin Concent 31.5 G/DL (32.0-36.0) L Red Cell Distribution Width 19.0 % (11.6-14.8) H Platelet Count 307 K/UL (150-450) Mean Platelet Volume 5.3 FL (6.5-10.1) L Neutrophils (%) (Auto) % (45.0-75.0) Lymphocytes (%) (Auto) % (20.0-45.0) Monocytes (%) (Auto) % (1.0-10.0) Eosinophils (%) (Auto) % (0.0-3.0) Basophils (%) (Auto) % (0.0-2.0) Sodium Level 139 MMOL/L (136-145) Potassium Level 3.8 MMOL/L (3.5-5.1) Chloride Level 104 MMOL/L (98-107) Carbon Dioxide Level 26 MMOL/L (21-32) Anion Gap 9 mmol/L (5-15) Blood Urea Nitrogen 30 mg/dL (7-18) H Creatinine 2.8 MG/DL (0.55-1.30) H Estimat Glomerular Filtration Rate 18.0 mL/min (>60) Glucose Level 133 MG/DL (74-106) H Calcium Level 8.1 MG/DL (8.5-10.1) L Height (Feet): 5 Height (Inches): 5.00 Weight (Pounds): 331 General Appearance: WD/WN, no apparent distress, alert Cardiovascular: normal rate Respiratory/Chest: normal breath sounds, no respiratory distress Abdominal Exam: normal bowel sounds, non tender, soft Extremities: normal range of motion, non-tender Ham Gonzalez NP August 17, 2017 11:07
--- NOTE | 2017-08-17 13:24 | Cardiac Electrophysiology PN ---
Assessment/Plan Assessment/Plan 1. S/P Septic shock due to diabetic ketoacidosis. On broad-spectrum IV antibiotic. Echocardiogram showed EF 60%. Rule out for ID 2. Diabetic ketoacidosis, on IV fluids and insulin. 3. S/P Cardiac arrest needing atropine. Due to respiratory failure. Now in SR 4. White count of 36,000, abdominal cellulitis. IV antibiotic per Dr. Colbert. 5. Morbid obesity. 6. Respiratory failure, reextubated 7. ARF on HD via Right IJ. Resolved, dialysis catheter to be removed tomorrow. 8. Anemia hb 6.9. Transfused 2 units. Now around 8 9. Severe hyponatremia, sodium 118, Resolved now 140s 10. 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 No further HD. Objective Last 24 Hour Vital Signs Date Time Temp Pulse Resp B/P (MAP) Pulse Ox O2 Delivery O2 Flow Rate FiO2 08/17/17 12:51 147/86 08/17/17 12:00 98.1 95 20 161/83 97 Nasal Cannula 4.0 98.1 08/17/17 11:52 161/83 08/17/17 11:51 95 161/83 08/17/17 08:28 109 08/17/17 08:00 97.5 104 20 158/86 94 Nasal Cannula 4.0 97.5 08/17/17 04:00 89 08/17/17 04:00 100.0 92 20 148/113 92 Nasal Cannula 4.0 100.0 08/17/17 00:00 99.5 93 30 138/66 96 Nasal Cannula 4.0 99.5 08/17/17 00:00 91 08/16/17 21:53 97 Nasal Cannula 2.0 28 08/16/17 21:53 Nasal Cannula 2.0 28 08/16/17 20:00 99.3 98 21 152/81 90 Nasal Cannula 4.0 99.3 08/16/17 20:00 95 08/16/17 16:00 99.7 101 18 151/81 97 Nasal Cannula 4.0 99.7 08/16/17 15:23 100 Intake and Output 08/16/17 08/17/17 19:00 07:00 Intake Total 640 ml 150 ml Output Total 200 ml 500 ml Balance 440 ml -350 ml Intake Oral 640 ml 150 ml Output Urine Total 200 ml 500 ml # Voids 2 # Bowel Movements 1 Laboratory Tests Test 08/17/17 05:00 White Blood Count 5.1 K/UL (4.8-10.8) Red Blood Count 3.13 M/UL (4.20-5.40) L Hemoglobin 7.2 G/DL (12.0-16.0) L Hematocrit 23.0 % (37.0-47.0) L Mean Corpuscular Volume 74 FL (80-99) L Mean Corpuscular Hemoglobin 23.2 PG (27.0-31.0) L Mean Corpuscular Hemoglobin Concent 31.5 G/DL (32.0-36.0) L Red Cell Distribution Width 19.0 % (11.6-14.8) H Platelet Count 307 K/UL (150-450) Mean Platelet Volume 5.3 FL (6.5-10.1) L Neutrophils (%) (Auto) % (45.0-75.0) Lymphocytes (%) (Auto) % (20.0-45.0) Monocytes (%) (Auto) % (1.0-10.0) Eosinophils (%) (Auto) % (0.0-3.0) Basophils (%) (Auto) % (0.0-2.0) Sodium Level 139 MMOL/L (136-145) Potassium Level 3.8 MMOL/L (3.5-5.1) Chloride Level 104 MMOL/L (98-107) Carbon Dioxide Level 26 MMOL/L (21-32) Anion Gap 9 mmol/L (5-15) Blood Urea Nitrogen 30 mg/dL (7-18) H Creatinine 2.8 MG/DL (0.55-1.30) H Estimat Glomerular Filtration Rate 18.0 mL/min (>60) Glucose Level 133 MG/DL (74-106) H Calcium Level 8.1 MG/DL (8.5-10.1) L Objective HEAD AND NECK: No JVD, Right IJ Manjinder catheter LUNGS: Coarse rhonchi. CARDIOVASCULAR: Regular S1 and S2 with no gallop. ABDOMEN: Cellulitis of the lower abdomen and erythema. EXTREMITIES: 1+ pitting edema. Adama Trujillo MD August 17, 2017 13:24
--- NOTE | 2017-08-17 13:33 | Infectious Diseases Prog Note ---
Assessment/Plan Problems: (1) Cellulitis of abdominal wall Assessment & Plan: complicated with panniculitis, improving , will continue meropenem and zyvox empiric coverage for now to cover her left forearm cellulitis too , bone scan of the left leg ruled out osteomyelitis also her ankle X ray , repeated blood culture is negative . she has slow recovery due to significant lymphedema and fluids overload. will add fungal coverage for her skin folds and recommend to keep area well ventilated (2) UTI (urinary tract infection) Assessment & Plan: due to strep agalactiae and staph aureus, improved , she is already on meropenem and zyvox (3) Septic shock Assessment & Plan: resolved, due to the above , repeated blood culture is negative , continue meropenem and zyvox for now to cover her forearm cellulitis too , monitor WBC (4) Respiratory failure requiring intubation Assessment & Plan: with fluids over load and pleural effusion, improved , was extubated , continue HD to remove more fluids as tolerated , monitor CXR. (5) SCARLET (acute kidney injury) Assessment & Plan: still on HD , has mild improvement in her urine output, nephrology is following, monitor UOP (6) DKA (diabetic ketoacidoses) Assessment & Plan: due to poorly controlled diabetes and sepsis, S/P insulin drip in the ICU , continue close monitor of her blood glucose to keep between 80 -120 (7) Leg wound, left Assessment & Plan: with infection due to staph aureus and klebsiella oxytoca, already on meropenem and zyvox , continue local wound care as per hospital protocol , bone scan ruled out underlying osteomyelitis also her X ray . (8) Forearm swelling Assessment & Plan: with redness and erythema, infiltration due to IV line, VS phlebitis, doubt an abscess since she is on wide spectrum covergae of antibiotics . venous doppler was negative for DVT as per preliminary report , continue heat pads and wide spectrum antibiotics Subjective Constitutional: Reports: no symptoms HEENT: Reports: no symptoms Respiratory: Reports: no symptoms Breasts: Reports: no symptoms Cardiovascular: Reports: no symptoms Gastrointestinal/Abdominal: Reports: no symptoms Genitourinary: Reports: no symptoms Neurologic: Reports: no symptoms Psychiatric: Reports: no symptoms Skin: Reports: ulcer, other - left forearm redness with warmth Endocrine: Reports: no symptoms Hematologic: Reports: no symptoms Musculoskeletal: Reports: no symptoms Allergies: Coded Allergies: LATEX (Verified Allergy, Unknown, skin rash, 08/12/17) PENICILLINS (Verified Allergy, Unknown, 07/30/17) According to mother, the patient is allergic to Penicillins Subjective she was awake and alert, has less left forearm redness and swelling . no fever , no chills today. has less lymphedema in her lower abdomen skin and less redness. small skin breaks drying out at the folds site with redness . Objective Vital Signs Last 24 Hour Vital Signs Date Time Temp Pulse Resp B/P (MAP) Pulse Ox O2 Delivery O2 Flow Rate FiO2 08/17/17 12:51 147/86 08/17/17 12:00 98.1 95 20 161/83 97 Nasal Cannula 4.0 98.1 08/17/17 11:52 161/83 08/17/17 11:51 95 161/83 08/17/17 08:28 109 08/17/17 08:00 97.5 104 20 158/86 94 Nasal Cannula 4.0 97.5 08/17/17 04:00 89 08/17/17 04:00 100.0 92 20 148/113 92 Nasal Cannula 4.0 100.0 08/17/17 00:00 99.5 93 30 138/66 96 Nasal Cannula 4.0 99.5 08/17/17 00:00 91 08/16/17 21:53 97 Nasal Cannula 2.0 28 08/16/17 21:53 Nasal Cannula 2.0 28 08/16/17 20:00 99.3 98 21 152/81 90 Nasal Cannula 4.0 99.3 08/16/17 20:00 95 08/16/17 16:00 99.7 101 18 151/81 97 Nasal Cannula 4.0 99.7 08/16/17 15:23 100 Height (Feet): 5 Height (Inches): 5.00 Weight (Pounds): 331 General Appearance: WD/WN, no acute distress HEENT: normocephalic, atraumatic, anicteric, mucous membranes moist, PERRL Respiratory/Chest: chest wall non-tender, lungs clear, normal breath sounds, no respiratory distress, no accessory muscle use Cardiovascular: normal peripheral pulses, normal rate, regular rhythm, no gallop/murmur, no JVD Abdomen: normal bowel sounds, soft, non tender, no organomegaly, non distended , no mass, no scars Extremities: no cyanosis, no clubbing Skin: no rash, ulcers, other - red and erythematous on the left forearm Neurologic/Psychiatric: alert, oriented x 3, responsive Lymphatic: no neck adenopathy, no groin adenopathy Laboratory Tests Test 08/17/17 05:00 White Blood Count 5.1 K/UL (4.8-10.8) Red Blood Count 3.13 M/UL (4.20-5.40) L Hemoglobin 7.2 G/DL (12.0-16.0) L Hematocrit 23.0 % (37.0-47.0) L Mean Corpuscular Volume 74 FL (80-99) L Mean Corpuscular Hemoglobin 23.2 PG (27.0-31.0) L Mean Corpuscular Hemoglobin Concent 31.5 G/DL (32.0-36.0) L Red Cell Distribution Width 19.0 % (11.6-14.8) H Platelet Count 307 K/UL (150-450) Mean Platelet Volume 5.3 FL (6.5-10.1) L Neutrophils (%) (Auto) % (45.0-75.0) Lymphocytes (%) (Auto) % (20.0-45.0) Monocytes (%) (Auto) % (1.0-10.0) Eosinophils (%) (Auto) % (0.0-3.0) Basophils (%) (Auto) % (0.0-2.0) Sodium Level 139 MMOL/L (136-145) Potassium Level 3.8 MMOL/L (3.5-5.1) Chloride Level 104 MMOL/L (98-107) Carbon Dioxide Level 26 MMOL/L (21-32) Anion Gap 9 mmol/L (5-15) Blood Urea Nitrogen 30 mg/dL (7-18) H Creatinine 2.8 MG/DL (0.55-1.30) H Estimat Glomerular Filtration Rate 18.0 mL/min (>60) Glucose Level 133 MG/DL (74-106) H Calcium Level 8.1 MG/DL (8.5-10.1) L Current Medications Medications (Trade) Dose Ordered Sig/Tommy Route PRN Reason Start Time Stop Time Status Last Admin Dose Admin Acetaminophen (Tylenol) 650 mg Q4H PRN NG Mild Pain/Temp > 100.5 08/15/17 21:00 09/07/17 20:59 Acetaminophen (Tylenol) 650 mg Q6H PRN RECTAL Prn pain/Temp > 100.5 08/15/17 21:02 09/14/17 21:01 Amlodipine Besylate (Norvasc) 10 mg DAILY ORAL 08/18/17 09:00 09/17/17 08:59 Chlorhexidine Gluconate (Idalia-Hex 2%) 1 applic DAILY@2000 TOPIC 08/15/17 21:00 09/08/17 19:59 08/16/17 20:56 Clonidine HCl (Catapres Tab) 0.1 mg Q4H PRN ORAL SBP > 160 mmHg 08/17/17 11:45 09/16/17 11:44 08/17/17 11:52 Clotrimazole (Lotrimin) 1 applic BID TOPIC 08/16/17 18:00 09/15/17 17:59 08/17/17 09:04 Dextrose (Dextrose 50%) 25 ml STAT PRN IV Hypoglycemia 08/15/17 21:03 09/14/17 21:02 Dextrose (Dextrose 50%) 50 ml STAT PRN IV Hypoglycemia 08/15/17 21:03 09/14/17 21:02 Fluconazole (Diflucan) 200 mg DAILY ORAL 08/17/17 09:00 08/24/17 08:59 08/17/17 09:04 Heparin Sodium (Porcine) (Heparin 5000 units/ml) 5,000 units Q8H SUBQ 08/15/17 23:00 09/05/17 14:59 08/17/17 06:03 Insulin Aspart (NovoLOG) BEFORE MEALS AND HS SUBQ 08/15/17 21:00 09/11/17 11:29 08/17/17 11:47 Insulin Detemir (Levemir) 6 units Q12HR SUBQ 08/16/17 09:00 09/06/17 08:59 08/17/17 09:07 Linezolid 300 ml @ 300 mls/hr Q12HR IVPB 08/15/17 21:00 08/19/17 23:59 08/17/17 09:04 Meropenem 500 mg/ Sodium Chloride 110 ml @ 220 mls/hr Q12HR@1000,2200 IVPB 08/15/17 22:00 08/18/17 23:59 08/17/17 09:05 Nateglinide (Starlix) 60 mg TIAC ORAL 08/17/17 06:30 09/16/17 06:29 08/17/17 11:46 Nystatin (Nystop Powder) 1 applic THREE TIMES A DAY TOPIC 08/16/17 14:00 09/15/17 13:59 08/17/17 09:04 Pantoprazole (Protonix) 40 mg DAILY ORAL 08/18/17 09:00 09/17/17 08:59 Silver Sulfadiazine (Silvadene Cream 25gm) 1 applic DAILY TOPIC 08/16/17 09:00 08/31/17 10:29 08/17/17 09:04 Johanny Colbert M.D. August 17, 2017 13:33
[2017-08-17] MEDS ORDERED: Acetaminophen 650mg/20.3ml NG PRN (15:30)
[2017-08-17] MEDS ORDERED: Acetaminophen 650 MG SUPP RECTAL PRN (15:30)
[2017-08-17] MEDS: Dyna-Hex 2% Top Sol 2oz TOPIC SCH (21:55)
[2017-08-18] VITALS (7 sets, daily range): BP systolic 125–178; BP diastolic 69–93
[2017-08-18] MEDS: Nateglinide 60mg tab ORAL SCH ×3 (06:40→16:35)
[2017-08-18] MEDS: Heparin 5000 units/ml inj SUBQ SCH ×3 (06:41→22:00)
[2017-08-18] MEDS: NovoLOG Insulin Flexpen SUBQ SCH ×4 (06:42→22:06)
--- NOTE | 2017-08-18 06:54 | Diagnostic Imaging Report ---
APPROVED REPORT CPT Code: 46238 Present Symptoms Comments: BILATERAL LEGS SWELLING. BILATERAL: Imaging reveals a patent deep venous system bilaterally. There is no evidence of thrombus within the femoral, popliteal or tibial segments. The greater saphenous veins are also within normal limits. Doppler indicates normal spontaneous flow within these segments. Left distal superficial femoral veins not visualized due to patient's body habitus and depth.
--- NOTE | 2017-08-18 06:54 | Diagnostic Imaging Report ---
APPROVED REPORT CPT Code: 11238 Symptoms Comments: R/O PAD SOB Swelling Risk Factors Obesity: Diabetes Comments Technically difficult study due to vessel depth ([id number] thigh and mid calf area), [id number] thigh and mid-calf area not well visualized. BILATERAL: Common femoral artery waveform analysis is within normal limits at rest. Color flow duplex sonography reveals minimal calcification throughout the proximal superficial femoral and popliteal arteries. There is no evidence of stenosis or occlusion within these segments. The posterior tibial, anterior tibial, and dorsalis pedis arteries are patent. Doppler tibial artery waveform analyses are within normal limits, bilaterally. There is no evidence of hemodynamically significant arterial occlusive disease, bilaterally.
--- NOTE | 2017-08-18 08:19 | Pulmonology Progress Note ---
Assessment/Plan Assessment/Plan respiratory failure s/p extubation and now with reintubation DKA sepsis abd wall cellulitis fluid overload effusions and edema anemia PLAN JONO care keep negative seems improved monitor for change no new recommendations Subjective Allergies: Coded Allergies: LATEX (Verified Allergy, Unknown, skin rash, 08/12/17) PENICILLINS (Verified Allergy, Unknown, 07/30/17) According to mother, the patient is allergic to Penicillins Subjective off vent- stable d/w RN remains stable overall Objective Last 24 Hour Vital Signs Date Time Temp Pulse Resp B/P (MAP) Pulse Ox O2 Delivery O2 Flow Rate FiO2 08/18/17 08:00 97.7 90 20 178/93 96 Nasal Cannula 4.0 97.7 08/18/17 04:00 98.9 92 20 136/80 96 98.9 08/18/17 00:00 98.9 94 20 125/81 95 98.9 08/17/17 20:00 Nasal Cannula 4.0 08/17/17 20:00 98.4 96 22 133/71 95 98.4 08/17/17 19:58 Nasal Cannula 4.0 36 08/17/17 19:58 95 Nasal Cannula 4.0 36 08/17/17 16:11 98.0 98 21 140/85 98 98.0 98 08/17/17 12:51 147/86 08/17/17 12:00 98.1 95 20 161/83 97 Nasal Cannula 4.0 98.1 08/17/17 11:52 161/83 08/17/17 11:51 95 161/83 08/17/17 08:28 109 Intake and Output 08/17/17 08/18/17 19:00 07:00 Intake Total 610 ml Output Total 1100 ml Balance -490 ml Intake Oral 200 ml IV Total 410 ml Output Urine Total 1100 ml # Voids 1 1 Objective WDWN off vent and seems stable NAD reduced breath sounds bilaterally without rhonchi or wheeze [id number] without MRG NABS nontender no HSM no CC edema nonfocal Laboratory Tests 08/18/17 07:30: White Blood Count [Pending], Red Blood Count [Pending], Hemoglobin [Pending], Hematocrit [Pending], Mean Corpuscular Volume [Pending], Mean Corpuscular Hemoglobin [Pending], Mean Corpuscular Hemoglobin Concent [Pending], Red Cell Distribution Width [Pending], Platelet Count [Pending], Mean Platelet Volume [ Pending], Neutrophils (%) (Auto) [Pending], Lymphocytes (%) (Auto) [Pending], Monocytes (%) (Auto) [Pending], Eosinophils (%) (Auto) [Pending], Basophils (%) (Auto) [Pending], Sodium Level [Pending], Potassium Level [Pending], Chloride Level [Pending], Carbon Dioxide Level [Pending], Blood Urea Nitrogen [Pending], Creatinine [Pending], Estimat Glomerular Filtration Rate [Pending], Glucose Level [Pending], Calcium Level [Pending] Current Medications Medications (Trade) Dose Ordered Sig/Tommy Route PRN Reason Start Time Stop Time Status Last Admin Dose Admin Acetaminophen (Tylenol) 650 mg Q4H PRN NG Mild Pain/Temp > 100.5 08/17/17 15:30 09/07/17 15:29 Acetaminophen (Tylenol) 650 mg Q6H PRN RECTAL for fever 08/17/17 15:30 09/14/17 15:29 Amlodipine Besylate (Norvasc) 10 mg DAILY ORAL 08/18/17 09:00 09/17/17 08:59 Chlorhexidine Gluconate (Idalia-Hex 2%) 1 applic DAILY@1999 TOPIC 08/17/17 20:00 09/08/17 19:59 08/17/17 21:55 Clonidine HCl (Catapres Tab) 0.1 mg Q4H PRN ORAL SBP > 160 mmHg 08/17/17 15:52 09/16/17 15:51 Clotrimazole (Lotrimin) 1 applic BID TOPIC 08/17/17 18:00 09/15/17 17:59 Dextrose (Dextrose 50%) 25 ml STAT PRN IV Hypoglycemia 08/17/17 15:30 09/14/17 15:29 Dextrose (Dextrose 50%) 50 ml STAT PRN IV Hypoglycemia 08/17/17 15:30 09/14/17 15:29 Fluconazole (Diflucan) 200 mg DAILY ORAL 08/18/17 09:00 08/24/17 08:59 Heparin Sodium (Porcine) (Heparin 5000 units/ml) 5,000 units Q8HR SUBQ 08/17/17 15:30 09/16/17 15:29 08/18/17 06:41 Insulin Aspart (NovoLOG) BEFORE MEALS AND HS SUBQ 08/17/17 16:30 09/11/17 11:29 08/18/17 06:42 Insulin Detemir (Levemir) 6 units Q12HR SUBQ 08/17/17 21:00 09/06/17 08:59 08/17/17 21:59 Linezolid 300 ml @ 300 mls/hr Q12HR IVPB 08/17/17 21:00 08/19/17 23:59 08/17/17 21:55 Meropenem 500 mg/ Sodium Chloride 110 ml @ 220 mls/hr Q12HR@1000,2200 IVPB 08/17/17 22:00 08/18/17 23:59 08/17/17 21:55 Nateglinide (Starlix) 60 mg TIAC ORAL 08/17/17 16:30 09/16/17 06:29 08/18/17 06:40 Nystatin (Nystop Powder) 1 applic THREE TIMES A DAY TOPIC 08/17/17 18:00 09/15/17 13:59 Pantoprazole (Protonix) 40 mg ACBREAKFAST ORAL 08/18/17 06:30 09/17/17 06:29 08/18/17 06:40 Silver Sulfadiazine (Silvadene Cream 25gm) 1 applic DAILY TOPIC 08/18/17 09:00 08/31/17 10:29 Stew Hopson MD August 18, 2017 08:19
[2017-08-18 08:24] LABS: HEMATOCRIT 23.1 % (37.0-47.0); HEMOGLOBIN 7.5 G/DL (12.0-16.0); MEAN CORPUSCULAR VOLUME 74 FL (80-99); PLATELET COUNT 273 K/UL (150-450); RED BLOOD COUNT 3.13 M/UL (4.20-5.40); RED CELL DISTRIBUTION WIDTH 18.8 % (11.6-14.8); WHITE BLOOD COUNT 4.8 K/UL (4.8-10.8)
[2017-08-18 08:36] LABS: ANION GAP 10 mmol/L (5-15); BLOOD UREA NITROGEN 24 mg/dL (7-18); CALCIUM 8.1 MG/DL (8.5-10.1); CARBON DIOXIDE 26 MMOL/L (21-32); CHLORIDE 106 MMOL/L (98-107); CREATININE 2.3 MG/DL (0.55-1.30); POTASSIUM 3.6 MMOL/L (3.5-5.1); SODIUM 141 MMOL/L (136-145)
[2017-08-18] MEDS: Fluconazole 100mg tab ORAL SCH (08:37)
[2017-08-18] MEDS: Nystatin Powder 100,000 units/gm 15gm TOPIC SCH ×3 (08:39→18:00)
--- NOTE | 2017-08-18 08:40 | Nephrology Progress Note ---
Assessment/Plan Assessment/Plan 1. SCARLET- ATN resolving, Will remove dialysis catheter today if Cr <2.8 - multifact ATN (sepsis induced inflammotory cytokine prox tub damage/ ishchemic ATN hypotension/vol dep) 2. DKA/Met Acidosis - resolved 3. Septic Shock- etiology likely from abd cellulitis. Abx mgmt per ID. - resolved 4. Hypotension- resolved 5. Resp FL- extubated 6. Hypok+/Ca/Phos- replace calcium prn. AM labs pending 7. Anemia- When stable GI anticipates procedure. -PRN Bld tx Hgb <7 Plan for DC Sat to home with home health Subjective Date patient seen: August 18, 2017 Time patient seen: 08:39 Constitutional: Reports: weakness Allergies: Coded Allergies: LATEX (Verified Allergy, Unknown, skin rash, 08/12/17) PENICILLINS (Verified Allergy, Unknown, 07/30/17) According to mother, the patient is allergic to Penicillins All Systems: reviewed and negative except above Subjective Patient much improved and ambulating Objective Last 24 Hour Vital Signs Date Time Temp Pulse Resp B/P (MAP) Pulse Ox O2 Delivery O2 Flow Rate FiO2 08/18/17 08:00 97.7 90 20 178/93 96 Nasal Cannula 4.0 97.7 08/18/17 04:00 98.9 92 20 136/80 96 98.9 08/18/17 00:00 98.9 94 20 125/81 95 98.9 08/17/17 20:00 Nasal Cannula 4.0 08/17/17 20:00 98.4 96 22 133/71 95 98.4 08/17/17 19:58 Nasal Cannula 4.0 36 08/17/17 19:58 95 Nasal Cannula 4.0 36 08/17/17 16:11 98.0 98 21 140/85 98 98.0 98 08/17/17 12:51 147/86 08/17/17 12:00 98.1 95 20 161/83 97 Nasal Cannula 4.0 98.1 08/17/17 11:52 161/83 08/17/17 11:51 95 161/83 Intake and Output 08/17/17 08/18/17 19:00 07:00 Intake Total 610 ml Output Total 1100 ml Balance -490 ml Intake Oral 200 ml IV Total 410 ml Output Urine Total 1100 ml # Voids 1 1 Laboratory Tests 5/24/18 07:30: White Blood Count 4.8, Red Blood Count 3.13L, Hemoglobin 7.5L, Hematocrit 23.1L , Mean Corpuscular Volume 74L, Mean Corpuscular Hemoglobin 23.8L, Mean Corpuscular Hemoglobin Concent 32.3, Red Cell Distribution Width 18.8H, Platelet Count 273, Mean Platelet Volume 5.0L, Neutrophils (%) (Auto) , Lymphocytes (%) (Auto) , Monocytes (%) (Auto) , Eosinophils (%) (Auto) , Basophils (%) (Auto) , Neutrophils % (Manual) [Pending], Lymphocytes % (Manual) [Pending], Platelet Estimate [Pending], Platelet Morphology [Pending], Sodium Level 141, Potassium Level 3.6, Chloride Level 106, Carbon Dioxide Level 26, Anion Gap 10, Blood Urea Nitrogen 24H, Creatinine 2.3H, Estimat Glomerular Filtration Rate 22.6, Glucose Level 119H, Calcium Level 8.1L Height (Feet): 5 Height (Inches): 5.00 Weight (Pounds): 151 General Appearance: WD/WN, no apparent distress EENT: PERRL/EOMI, normal ENT inspection Neck: normal alignment, supple Cardiovascular: normal rate, regular rhythm Respiratory/Chest: lungs clear, normal breath sounds Abdomen: non tender, soft Edema: 1+ Arm (L), 1+ Arm (R), 1+ Leg (L), 1+ Leg (R), 1+ Pedal (L), 1+ Pedal ( R), 1+ Generalized Carlton Guzmán M.D. August 18, 2017 08:40
[2017-08-18] MEDS: Levemir Flexpen SUBQ SCH ×2 (09:38→22:07)
[2017-08-18] MEDS: Meropenem 500 MG in NS 110 ML IVPB SCH ×2 (11:01→21:59)
--- NOTE | 2017-08-18 11:08 | GI Progress Note ---
Assessment/Plan Problems: (1) Anemia ICD Codes: D64.9 - Anemia, unspecified SNOMED: 103997770 (2) Diabetes mellitus ICD Codes: E11.9 - Type 2 diabetes mellitus without complications SNOMED: 81622579 Status: stable Status Narrative Discussed with Dr. Hernandez. Assessment/Plan Assessment - Sepsis, improved - resp failure, resolved - DKA - abd wall cellulitis - obesity - Renal failure - Anemia >> OB (+)(-)(-) - extubated today - ST evaluation reviewed Recommendations - soft diet, tolerating - ppi daily - elevated HOB - abx - follow labs and exam - transfuse PRN - OT/PT evaluation - fu labs The patient was seen and examined at bedside and all new and available data was reviewed in the patients chart. I agree with the above findings, impression and plan. (Patient seen earlier today. Signature stamp does not reflect patient encounter time.). - Gianni Hernandez MD Subjective Subjective tolerating food Objective Last 24 Hour Vital Signs Date Time Temp Pulse Resp B/P (MAP) Pulse Ox O2 Delivery O2 Flow Rate FiO2 08/18/17 10:31 95 138/69 08/18/17 08:37 90 178/93 08/18/17 08:00 97.7 90 20 178/93 96 Nasal Cannula 4.0 97.7 08/18/17 04:00 98.9 92 20 136/80 96 98.9 08/18/17 00:00 98.9 94 20 125/81 95 98.9 08/17/17 20:00 Nasal Cannula 4.0 08/17/17 20:00 98.4 96 22 133/71 95 98.4 08/17/17 19:58 Nasal Cannula 4.0 36 08/17/17 19:58 95 Nasal Cannula 4.0 36 08/17/17 16:11 98.0 98 21 140/85 98 98.0 98 08/17/17 12:51 147/86 08/17/17 12:00 98.1 95 20 161/83 97 Nasal Cannula 4.0 98.1 08/17/17 11:52 161/83 08/17/17 11:51 95 161/83 Intake and Output 08/17/17 08/18/17 19:00 07:00 Intake Total 610 ml Output Total 1100 ml Balance -490 ml Intake Oral 200 ml IV Total 410 ml Output Urine Total 1100 ml # Voids 1 1 Laboratory Tests Test 08/18/17 07:30 White Blood Count 4.8 K/UL (4.8-10.8) Red Blood Count 3.13 M/UL (4.20-5.40) L Hemoglobin 7.5 G/DL (12.0-16.0) L Hematocrit 23.1 % (37.0-47.0) L Mean Corpuscular Volume 74 FL (80-99) L Mean Corpuscular Hemoglobin 23.8 PG (27.0-31.0) L Mean Corpuscular Hemoglobin Concent 32.3 G/DL (32.0-36.0) Red Cell Distribution Width 18.8 % (11.6-14.8) H Platelet Count 273 K/UL (150-450) Mean Platelet Volume 5.0 FL (6.5-10.1) L Neutrophils (%) (Auto) % (45.0-75.0) Lymphocytes (%) (Auto) % (20.0-45.0) Monocytes (%) (Auto) % (1.0-10.0) Eosinophils (%) (Auto) % (0.0-3.0) Basophils (%) (Auto) % (0.0-2.0) Differential Total Cells Counted 100 Neutrophils % (Manual) 63 % (45-75) Lymphocytes % (Manual) 23 % (20-45) Monocytes % (Manual) 8 % (1-10) Eosinophils % (Manual) 6 % (0-3) H Basophils % (Manual) 0 % (0-2) Band Neutrophils 0 % (0-8) Platelet Estimate Adequate Platelet Morphology Normal Hypochromasia 3+ Anisocytosis 2+ Microcytosis 2+ Sodium Level 141 MMOL/L (136-145) Potassium Level 3.6 MMOL/L (3.5-5.1) Chloride Level 106 MMOL/L (98-107) Carbon Dioxide Level 26 MMOL/L (21-32) Anion Gap 10 mmol/L (5-15) Blood Urea Nitrogen 24 mg/dL (7-18) H Creatinine 2.3 MG/DL (0.55-1.30) H Estimat Glomerular Filtration Rate 22.6 mL/min (>60) Glucose Level 119 MG/DL (74-106) H Calcium Level 8.1 MG/DL (8.5-10.1) L Height (Feet): 5 Height (Inches): 5.00 Weight (Pounds): 151 General Appearance: WD/WN, no apparent distress, alert Cardiovascular: normal rate Respiratory/Chest: normal breath sounds, no respiratory distress Abdominal Exam: normal bowel sounds, non tender, soft Extremities: normal range of motion, non-tender Ham Gonzalez NP August 18, 2017 11:08
[2017-08-18] MEDS ORDERED: Lidocaine 2% 20mg/ml/Epi 0.005mg/ml 20ml vial INJ ONE (12:30)
--- NOTE | 2017-08-18 17:16 | Cardiac Electrophysiology PN ---
Assessment/Plan Assessment/Plan 1. S/P Septic shock due to diabetic ketoacidosis. On broad-spectrum IV antibiotic. Echocardiogram showed EF 60%. Rule out for [place] 2. Diabetic ketoacidosis, on IV fluids and insulin. 3. S/P Cardiac arrest needing atropine. Due to respiratory failure. Now in SR 4. White count of 36,000, abdominal cellulitis. IV antibiotic per Dr. Colbert. 5. Morbid obesity. 6. Respiratory failure, reextubated 7. ARF on HD via Right IJ. Resolved, dialysis catheter removed today 8. Anemia hb 6.9. Transfused 2 units. Now around 8 9. Severe hyponatremia, sodium 118, Resolved now 140s 10. Dysphagia, passed swallow eval and now eating DW RN Subjective Subjective Alert , HD catheter removed. Objective Last 24 Hour Vital Signs Date Time Temp Pulse Resp B/P (MAP) Pulse Ox O2 Delivery O2 Flow Rate FiO2 08/18/17 16:00 97.7 90 20 156/92 97 Nasal Cannula 4.0 97.7 08/18/17 12:00 97.7 88 20 141/72 100 Nasal Cannula 4.0 97.7 08/18/17 10:31 95 138/69 08/18/17 08:37 90 178/93 08/18/17 08:00 97.7 90 20 178/93 96 Nasal Cannula 4.0 97.7 08/18/17 04:00 98.9 92 20 136/80 96 98.9 08/18/17 00:00 98.9 94 20 125/81 95 98.9 08/17/17 20:00 Nasal Cannula 4.0 08/17/17 20:00 98.4 96 22 133/71 95 98.4 08/17/17 19:58 Nasal Cannula 4.0 36 08/17/17 19:58 95 Nasal Cannula 4.0 36 Intake and Output 08/17/17 08/18/17 19:00 07:00 Intake Total 610 ml Output Total 1100 ml Balance -490 ml Intake Oral 200 ml IV Total 410 ml Output Urine Total 1100 ml # Voids 1 1 Laboratory Tests Test 08/18/17 07:30 White Blood Count 4.8 K/UL (4.8-10.8) Red Blood Count 3.13 M/UL (4.20-5.40) L Hemoglobin 7.5 G/DL (12.0-16.0) L Hematocrit 23.1 % (37.0-47.0) L Mean Corpuscular Volume 74 FL (80-99) L Mean Corpuscular Hemoglobin 23.8 PG (27.0-31.0) L Mean Corpuscular Hemoglobin Concent 32.3 G/DL (32.0-36.0) Red Cell Distribution Width 18.8 % (11.6-14.8) H Platelet Count 273 K/UL (150-450) Mean Platelet Volume 5.0 FL (6.5-10.1) L Neutrophils (%) (Auto) % (45.0-75.0) Lymphocytes (%) (Auto) % (20.0-45.0) Monocytes (%) (Auto) % (1.0-10.0) Eosinophils (%) (Auto) % (0.0-3.0) Basophils (%) (Auto) % (0.0-2.0) Differential Total Cells Counted 100 Neutrophils % (Manual) 63 % (45-75) Lymphocytes % (Manual) 23 % (20-45) Monocytes % (Manual) 8 % (1-10) Eosinophils % (Manual) 6 % (0-3) H Basophils % (Manual) 0 % (0-2) Band Neutrophils 0 % (0-8) Platelet Estimate Adequate Platelet Morphology Normal Hypochromasia 3+ Anisocytosis 2+ Microcytosis 2+ Sodium Level 141 MMOL/L (136-145) Potassium Level 3.6 MMOL/L (3.5-5.1) Chloride Level 106 MMOL/L (98-107) Carbon Dioxide Level 26 MMOL/L (21-32) Anion Gap 10 mmol/L (5-15) Blood Urea Nitrogen 24 mg/dL (7-18) H Creatinine 2.3 MG/DL (0.55-1.30) H Estimat Glomerular Filtration Rate 22.6 mL/min (>60) Glucose Level 119 MG/DL (74-106) H Calcium Level 8.1 MG/DL (8.5-10.1) L Objective HEAD AND NECK: No JVD, LUNGS: Coarse rhonchi. CARDIOVASCULAR: Regular S1 and S2 with no gallop. ABDOMEN: Cellulitis of the lower abdomen and erythema. EXTREMITIES: 1+ pitting edema. Adama Trujillo MD August 18, 2017 17:16
--- NOTE | 2017-08-18 18:28 | General Progress Note ---
Assessment/Plan Problem List: (1) Cellulitis of abdominal wall ICD Codes: L03.311 - Cellulitis of abdominal wall SNOMED: 78567512 (2) Acute respiratory failure ICD Codes: J96.00 - Acute respiratory failure, unspecified whether with hypoxia or hypercapnia SNOMED: 62355895 (3) New onset type 1 diabetes mellitus, uncontrolled ICD Codes: E10.65 - Type 1 diabetes mellitus with hyperglycemia SNOMED: 888410176 (4) Necrotizing fasciitis ICD Codes: M72.6 - Necrotizing fasciitis SNOMED: 82325122 (5) DKA (diabetic ketoacidoses) ICD Codes: E13.10 - Other specified diabetes mellitus with ketoacidosis without coma SNOMED: 53012921, 964378177 Assessment/Plan continue Levemir 6 units bid continue Starlix 60 mg ac tid continue NISS ac / hs Subjective Allergies: Coded Allergies: LATEX (Verified Allergy, Unknown, skin rash, 08/12/17) PENICILLINS (Verified Allergy, Unknown, 07/30/17) According to mother, the patient is allergic to Penicillins All Systems: reviewed and negative except above Subjective events noted doing fine appetite is good Objective Last 24 Hour Vital Signs Date Time Temp Pulse Resp B/P (MAP) Pulse Ox O2 Delivery O2 Flow Rate FiO2 08/18/17 16:00 97.7 90 20 156/92 97 Nasal Cannula 4.0 97.7 08/18/17 12:00 97.7 88 20 141/72 100 Nasal Cannula 4.0 97.7 08/18/17 10:31 95 138/69 08/18/17 08:37 90 178/93 08/18/17 08:00 97.7 90 20 178/93 96 Nasal Cannula 4.0 97.7 08/18/17 04:00 98.9 92 20 136/80 96 98.9 08/18/17 00:00 98.9 94 20 125/81 95 98.9 08/17/17 20:00 Nasal Cannula 4.0 08/17/17 20:00 98.4 96 22 133/71 95 98.4 08/17/17 19:58 Nasal Cannula 4.0 36 08/17/17 19:58 95 Nasal Cannula 4.0 36 Intake and Output 08/17/17 08/18/17 19:00 07:00 Intake Total 610 ml Output Total 1100 ml Balance -490 ml Intake Oral 200 ml IV Total 410 ml Output Urine Total 1100 ml # Voids 1 1 Laboratory Tests 08/18/17 07:30: White Blood Count 4.8, Red Blood Count 3.13L, Hemoglobin 7.5L, Hematocrit 23.1L , Mean Corpuscular Volume 74L, Mean Corpuscular Hemoglobin 23.8L, Mean Corpuscular Hemoglobin Concent 32.3, Red Cell Distribution Width 18.8H, Platelet Count 273, Mean Platelet Volume 5.0L, Neutrophils (%) (Auto) , Lymphocytes (%) (Auto) , Monocytes (%) (Auto) , Eosinophils (%) (Auto) , Basophils (%) (Auto) , Differential Total Cells Counted 100, Neutrophils % ( Manual) 63, Lymphocytes % (Manual) 23, Monocytes % (Manual) 8, Eosinophils % ( Manual) 6H, Basophils % (Manual) 0, Band Neutrophils 0, Platelet Estimate Adequate, Platelet Morphology Normal, Hypochromasia 3+, Anisocytosis 2+, Microcytosis 2+, Sodium Level 141, Potassium Level 3.6, Chloride Level 106, Carbon Dioxide Level 26, Anion Gap 10, Blood Urea Nitrogen 24H, Creatinine 2.3H , Estimat Glomerular Filtration Rate 22.6, Glucose Level 119H, Calcium Level 8.1L Height (Feet): 5 Height (Inches): 5.00 Weight (Pounds): 151 General Appearance: no apparent distress EENT: TMs normal Neck: normal alignment Cardiovascular: normal rate Respiratory/Chest: chest wall non-tender, lungs clear Abdomen: normal bowel sounds Pelvis: normal external exam Edema: 1+ Arm (L), 1+ Arm (R), 1+ Leg (L), 1+ Leg (R), 1+ Pedal (L), 1+ Pedal ( R), 1+ Generalized Objective Current Medications Medications (Trade) Dose Ordered Sig/Tommy Route PRN Reason Start Time Stop Time Status Last Admin Dose Admin Acetaminophen (Tylenol) 650 mg Q4H PRN NG Mild Pain/Temp > 100.5 08/17/17 15:30 09/07/17 15:29 Acetaminophen (Tylenol) 650 mg Q6H PRN RECTAL for fever 08/17/17 15:30 09/14/17 15:29 Amlodipine Besylate (Norvasc) 10 mg DAILY ORAL 08/18/17 09:00 09/17/17 08:59 08/18/17 08:37 Chlorhexidine Gluconate (Idalia-Hex 2%) 1 applic DAILY@2000 TOPIC 08/17/17 20:00 09/08/17 19:59 08/17/17 21:55 Clonidine HCl (Catapres Tab) 0.1 mg Q4H PRN ORAL SBP > 160 mmHg 08/17/17 15:52 09/16/17 15:51 Clotrimazole (Lotrimin) 1 applic BID TOPIC 08/17/17 18:00 09/15/17 17:59 08/18/17 08:38 Dextrose (Dextrose 50%) 25 ml STAT PRN IV Hypoglycemia 08/17/17 15:30 09/14/17 15:29 Dextrose (Dextrose 50%) 50 ml STAT PRN IV Hypoglycemia 08/17/17 15:30 09/14/17 15:29 Fluconazole (Diflucan) 200 mg DAILY ORAL 08/18/17 09:00 08/24/17 08:59 08/18/17 08:37 Heparin Sodium (Porcine) (Heparin 5000 units/ml) 5,000 units Q8HR SUBQ 08/17/17 15:30 09/16/17 15:29 08/18/17 14:35 Insulin Aspart (NovoLOG) BEFORE MEALS AND HS SUBQ 08/17/17 16:30 09/11/17 11:29 08/18/17 16:38 Insulin Detemir (Levemir) 6 units Q12HR SUBQ 08/17/17 21:00 09/06/17 08:59 08/18/17 09:38 Linezolid 300 ml @ 300 mls/hr Q12HR IVPB 08/17/17 21:00 08/19/17 23:59 08/18/17 08:37 Meropenem 500 mg/ Sodium Chloride 110 ml @ 220 mls/hr Q12HR@1000,2200 IVPB 08/17/17 22:00 08/18/17 23:59 08/18/17 11:01 Nateglinide (Starlix) 60 mg TIAC ORAL 08/17/17 16:30 09/16/17 06:29 08/18/17 16:35 Nystatin (Nystop Powder) 1 applic THREE TIMES A DAY TOPIC 08/17/17 18:00 09/15/17 13:59 08/18/17 14:35 Pantoprazole (Protonix) 40 mg ACBREAKFAST ORAL 08/18/17 06:30 09/17/17 06:29 08/18/17 06:40 Silver Sulfadiazine (Silvadene Cream 25gm) 1 applic DAILY TOPIC 08/18/17 09:00 08/31/17 10:29 08/18/17 08:38 Item Value Date Time Bedside Blood Glucose 129 mg/dl H 08/18/17 1638 Bedside Blood Glucose 156 mg/dl H 08/18/17 1204 Bedside Blood Glucose 117 mg/dl 08/18/17 0938 Bedside Blood Glucose 124 mg/dl H 08/18/17 0642 Bedside Blood Glucose 98 mg/dl 08/17/17 2159 SAQIB TOM August 18, 2017 18:28
[2017-08-18] MEDS: Dyna-Hex 2% Top Sol 2oz TOPIC SCH (21:59)
[2017-08-19] VITALS: BP 138/89
[2017-08-19 04:00] VITALS: BP 146/88
[2017-08-19] MEDS: Nateglinide 60mg tab ORAL SCH ×3 (06:21→17:11)
[2017-08-19] MEDS: Heparin 5000 units/ml inj SUBQ SCH ×3 (06:22→21:39)
[2017-08-19] MEDS: NovoLOG Insulin Flexpen SUBQ SCH ×4 (06:23→21:40)
--- NOTE | 2017-08-19 06:42 | General Progress Note ---
Assessment/Plan Problem List: (1) Cellulitis of abdominal wall ICD Codes: L03.311 - Cellulitis of abdominal wall SNOMED: 44678219 (2) Acute respiratory failure ICD Codes: J96.00 - Acute respiratory failure, unspecified whether with hypoxia or hypercapnia SNOMED: 00067749 (3) New onset type 1 diabetes mellitus, uncontrolled ICD Codes: E10.65 - Type 1 diabetes mellitus with hyperglycemia SNOMED: 259464928 (4) Necrotizing fasciitis ICD Codes: M72.6 - Necrotizing fasciitis SNOMED: 22870539 (5) DKA (diabetic ketoacidoses) ICD Codes: E13.10 - Other specified diabetes mellitus with ketoacidosis without coma SNOMED: 50394124, 745883311 Assessment/Plan continue Levemir 6 units bid continue Starlix 60 mg ac tid continue NISS ac / hs Subjective Allergies: Coded Allergies: LATEX (Verified Allergy, Unknown, skin rash, 08/12/17) PENICILLINS (Verified Allergy, Unknown, 07/30/17) According to mother, the patient is allergic to Penicillins All Systems: reviewed and negative except above Subjective events noted Objective Last 24 Hour Vital Signs Date Time Temp Pulse Resp B/P (MAP) Pulse Ox O2 Delivery O2 Flow Rate FiO2 08/19/17 04:00 Nasal Cannula 4.0 08/19/17 04:00 98.4 95 22 146/88 96 98.4 08/19/17 00:00 Nasal Cannula 4.0 08/19/17 00:00 98.6 90 20 138/89 100 98.6 08/18/17 20:00 Nasal Cannula 4.0 08/18/17 20:00 98.6 98 20 135/82 97 98.6 08/18/17 19:30 Nasal Cannula 4.0 36 08/18/17 19:30 94 Nasal Cannula 4.0 36 08/18/17 16:00 97.7 90 20 156/92 97 Nasal Cannula 4.0 97.7 08/18/17 12:00 97.7 88 20 141/72 100 Nasal Cannula 4.0 97.7 08/18/17 10:31 95 138/69 08/18/17 08:37 90 178/93 08/18/17 08:00 97.7 90 20 178/93 96 Nasal Cannula 4.0 97.7 Intake and Output 08/18/17 08/19/17 19:00 07:00 Intake Total 630 ml 320 ml Balance 630 ml 320 ml Intake Oral 220 ml 20 ml IV Total 410 ml 300 ml # Voids 4 3 # Bowel Movements 1 Laboratory Tests 08/18/17 07:30: White Blood Count 4.8, Red Blood Count 3.13L, Hemoglobin 7.5L, Hematocrit 23.1L , Mean Corpuscular Volume 74L, Mean Corpuscular Hemoglobin 23.8L, Mean Corpuscular Hemoglobin Concent 32.3, Red Cell Distribution Width 18.8H, Platelet Count 273, Mean Platelet Volume 5.0L, Neutrophils (%) (Auto) , Lymphocytes (%) (Auto) , Monocytes (%) (Auto) , Eosinophils (%) (Auto) , Basophils (%) (Auto) , Differential Total Cells Counted 100, Neutrophils % ( Manual) 63, Lymphocytes % (Manual) 23, Monocytes % (Manual) 8, Eosinophils % ( Manual) 6H, Basophils % (Manual) 0, Band Neutrophils 0, Platelet Estimate Adequate, Platelet Morphology Normal, Hypochromasia 3+, Anisocytosis 2+, Microcytosis 2+, Sodium Level 141, Potassium Level 3.6, Chloride Level 106, Carbon Dioxide Level 26, Anion Gap 10, Blood Urea Nitrogen 24H, Creatinine 2.3H , Estimat Glomerular Filtration Rate 22.6, Glucose Level 119H, Calcium Level 8.1L Height (Feet): 5 Height (Inches): 5.00 Weight (Pounds): 321 General Appearance: no apparent distress Neck: normal alignment Cardiovascular: normal rate Respiratory/Chest: decreased breath sounds Abdomen: normal bowel sounds Objective Current Medications Medications (Trade) Dose Ordered Sig/Tommy Route PRN Reason Start Time Stop Time Status Last Admin Dose Admin Acetaminophen (Tylenol) 650 mg Q4H PRN NG Mild Pain/Temp > 100.5 08/17/17 15:30 09/07/17 15:29 Acetaminophen (Tylenol) 650 mg Q6H PRN RECTAL for fever 08/17/17 15:30 09/14/17 15:29 Amlodipine Besylate (Norvasc) 10 mg DAILY ORAL 08/18/17 09:00 09/17/17 08:59 08/18/17 08:37 Chlorhexidine Gluconate (Idalia-Hex 2%) 1 applic DAILY@1999 TOPIC 08/17/17 20:00 09/08/17 19:59 08/18/17 21:59 Clonidine HCl (Catapres Tab) 0.1 mg Q4H PRN ORAL SBP > 160 mmHg 08/17/17 15:52 09/16/17 15:51 Clotrimazole (Lotrimin) 1 applic BID TOPIC 08/17/17 18:00 09/15/17 17:59 08/18/17 08:38 Dextrose (Dextrose 50%) 25 ml STAT PRN IV Hypoglycemia 08/17/17 15:30 09/14/17 15:29 Dextrose (Dextrose 50%) 50 ml STAT PRN IV Hypoglycemia 08/17/17 15:30 09/14/17 15:29 Fluconazole (Diflucan) 200 mg DAILY ORAL 08/18/17 09:00 08/24/17 08:59 08/18/17 08:37 Heparin Sodium (Porcine) (Heparin 5000 units/ml) 5,000 units Q8HR SUBQ 08/17/17 15:30 09/16/17 15:29 08/19/17 06:22 Insulin Aspart (NovoLOG) BEFORE MEALS AND HS SUBQ 08/17/17 16:30 09/11/17 11:29 08/19/17 06:23 Insulin Detemir (Levemir) 6 units Q12HR SUBQ 08/17/17 21:00 09/06/17 08:59 08/18/17 22:07 Linezolid 300 ml @ 300 mls/hr Q12HR IVPB 08/17/17 21:00 08/19/17 23:59 08/18/17 21:59 Nateglinide (Starlix) 60 mg TIAC ORAL 08/17/17 16:30 09/16/17 06:29 08/19/17 06:21 Nystatin (Nystop Powder) 1 applic THREE TIMES A DAY TOPIC 08/17/17 18:00 09/15/17 13:59 08/18/17 14:35 Pantoprazole (Protonix) 40 mg ACBREAKFAST ORAL 08/18/17 06:30 09/17/17 06:29 08/19/17 06:21 Silver Sulfadiazine (Silvadene Cream 25gm) 1 applic DAILY TOPIC 08/18/17 09:00 08/31/17 10:29 08/18/17 08:38 Item Value Date Time Bedside Blood Glucose 129 mg/dl H 08/19/17 0630 Bedside Blood Glucose 132 mg/dl H 08/18/17 2207 Bedside Blood Glucose 129 mg/dl H 08/18/17 1638 Bedside Blood Glucose 156 mg/dl H 08/18/17 1204 Bedside Blood Glucose 117 mg/dl 08/18/17 0938 Bedside Blood Glucose 124 mg/dl H 08/18/17 0642 SAQIB TOM August 19, 2017 06:42
--- NOTE | 2017-08-19 07:29 | Nephrology Progress Note ---
Assessment/Plan Assessment/Plan 1. SCARLET- ATN resolving, Cr down to 2.3 yesterday. Dialysis catheter removed - multifact ATN (sepsis induced inflammotory cytokine prox tub damage/ ishchemic ATN hypotension/vol dep) 2. DKA/Met Acidosis - resolved 3. Septic Shock- etiology likely from abd cellulitis. Abx mgmt per ID. - resolved 4. HTN- Norvasc 5. Disposition- ask SS/CM to eval for short term SNF/Rehab 6. Hypok+/Ca/Phos- replace prn AM labs pending 7. Anemia- When stable GI anticipates procedure. -PRN Bld tx Hgb <7 Plan DC to SNF/Rehab Subjective Date patient seen: August 19, 2017 Time patient seen: 07:24 ROS Limited/Unobtainable: No Constitutional: Reports: weakness Allergies: Coded Allergies: LATEX (Verified Allergy, Unknown, skin rash, 08/12/17) PENICILLINS (Verified Allergy, Unknown, 07/30/17) According to mother, the patient is allergic to Penicillins All Systems: reviewed and negative except above Subjective Patient much improved. Working with PT/OT. DC soon Objective Last 24 Hour Vital Signs Date Time Temp Pulse Resp B/P (MAP) Pulse Ox O2 Delivery O2 Flow Rate FiO2 08/19/17 04:00 Nasal Cannula 4.0 08/19/17 04:00 98.4 95 22 146/88 96 98.4 08/19/17 00:00 Nasal Cannula 4.0 08/19/17 00:00 98.6 90 20 138/89 100 98.6 08/18/17 20:00 Nasal Cannula 4.0 08/18/17 20:00 98.6 98 20 135/82 97 98.6 08/18/17 19:30 Nasal Cannula 4.0 36 08/18/17 19:30 94 Nasal Cannula 4.0 36 08/18/17 16:00 97.7 90 20 156/92 97 Nasal Cannula 4.0 97.7 08/18/17 12:00 97.7 88 20 141/72 100 Nasal Cannula 4.0 97.7 08/18/17 10:31 95 138/69 08/18/17 08:37 90 178/93 08/18/17 08:00 97.7 90 20 178/93 96 Nasal Cannula 4.0 97.7 Intake and Output 08/18/17 08/19/17 19:00 07:00 Intake Total 630 ml 320 ml Balance 630 ml 320 ml Intake Oral 220 ml 20 ml IV Total 410 ml 300 ml # Voids 4 3 # Bowel Movements 1 Laboratory Tests 08/18/17 07:30: White Blood Count 4.8, Red Blood Count 3.13L, Hemoglobin 7.5L, Hematocrit 23.1L , Mean Corpuscular Volume 74L, Mean Corpuscular Hemoglobin 23.8L, Mean Corpuscular Hemoglobin Concent 32.3, Red Cell Distribution Width 18.8H, Platelet Count 273, Mean Platelet Volume 5.0L, Neutrophils (%) (Auto) , Lymphocytes (%) (Auto) , Monocytes (%) (Auto) , Eosinophils (%) (Auto) , Basophils (%) (Auto) , Differential Total Cells Counted 100, Neutrophils % ( Manual) 63, Lymphocytes % (Manual) 23, Monocytes % (Manual) 8, Eosinophils % ( Manual) 6H, Basophils % (Manual) 0, Band Neutrophils 0, Platelet Estimate Adequate, Platelet Morphology Normal, Hypochromasia 3+, Anisocytosis 2+, Microcytosis 2+, Sodium Level 141, Potassium Level 3.6, Chloride Level 106, Carbon Dioxide Level 26, Anion Gap 10, Blood Urea Nitrogen 24H, Creatinine 2.3H , Estimat Glomerular Filtration Rate 22.6, Glucose Level 119H, Calcium Level 8.1L 08/19/17 07:05: White Blood Count [Pending], Red Blood Count [Pending], Hemoglobin [Pending], Hematocrit [Pending], Mean Corpuscular Volume [Pending], Mean Corpuscular Hemoglobin [Pending], Mean Corpuscular Hemoglobin Concent [Pending], Red Cell Distribution Width [Pending], Platelet Count [Pending], Mean Platelet Volume [ Pending], Neutrophils (%) (Auto) [Pending], Lymphocytes (%) (Auto) [Pending], Monocytes (%) (Auto) [Pending], Eosinophils (%) (Auto) [Pending], Basophils (%) (Auto) [Pending], Sodium Level [Pending], Potassium Level [Pending], Chloride Level [Pending], Carbon Dioxide Level [Pending], Blood Urea Nitrogen [Pending], Creatinine [Pending], Estimat Glomerular Filtration Rate [Pending], Glucose Level [Pending], Calcium Level [Pending] Height (Feet): 5 Height (Inches): 5.00 Weight (Pounds): 321 General Appearance: WD/WN, no apparent distress EENT: PERRL/EOMI, normal ENT inspection Neck: normal alignment, supple Cardiovascular: normal rate, regular rhythm Respiratory/Chest: lungs clear, normal breath sounds Abdomen: non tender, soft Edema: 1+ Arm (L), 1+ Arm (R), 1+ Leg (L), 1+ Leg (R), 1+ Pedal (L), 1+ Pedal ( R), 1+ Generalized Carlton Guzmán M.D. August 19, 2017 07:29
[2017-08-19 07:49] LABS: HEMATOCRIT 22.9 % (37.0-47.0); HEMOGLOBIN 7.1 G/DL (12.0-16.0); MEAN CORPUSCULAR VOLUME 74 FL (80-99); PLATELET COUNT 261 K/UL (150-450); RED BLOOD COUNT 3.09 M/UL (4.20-5.40); RED CELL DISTRIBUTION WIDTH 18.9 % (11.6-14.8); WHITE BLOOD COUNT 5.2 K/UL (4.8-10.8)
[2017-08-19 08:00] VITALS: BP 153/84
[2017-08-19 08:05] LABS: ANION GAP 8 mmol/L (5-15); BLOOD UREA NITROGEN 20 mg/dL (7-18); CARBON DIOXIDE 26 MMOL/L (21-32); CHLORIDE 104 MMOL/L (98-107); POTASSIUM 4.2 MMOL/L (3.5-5.1); SODIUM 138 MMOL/L (136-145)
--- NOTE | 2017-08-19 08:26 | Pulmonology Progress Note ---
Assessment/Plan Assessment/Plan respiratory failure s/p extubation and now with reintubation DKA sepsis abd wall cellulitis fluid overload effusions and edema anemia PLAN respiratory as is monitor for change no new recommendations Subjective Allergies: Coded Allergies: LATEX (Verified Allergy, Unknown, skin rash, 08/12/17) PENICILLINS (Verified Allergy, Unknown, 07/30/17) According to mother, the patient is allergic to Penicillins Subjective off vent- stable d/w RN remains stable overall Objective Last 24 Hour Vital Signs Date Time Temp Pulse Resp B/P (MAP) Pulse Ox O2 Delivery O2 Flow Rate FiO2 08/19/17 04:00 Nasal Cannula 4.0 08/19/17 04:00 98.4 95 22 146/88 96 98.4 08/19/17 00:00 Nasal Cannula 4.0 08/19/17 00:00 98.6 90 20 138/89 100 98.6 08/18/17 20:00 Nasal Cannula 4.0 08/18/17 20:00 98.6 98 20 135/82 97 98.6 08/18/17 19:30 Nasal Cannula 4.0 36 08/18/17 19:30 94 Nasal Cannula 4.0 36 08/18/17 16:00 97.7 90 20 156/92 97 Nasal Cannula 4.0 97.7 08/18/17 12:00 97.7 88 20 141/72 100 Nasal Cannula 4.0 97.7 08/18/17 10:31 95 138/69 08/18/17 08:37 90 178/93 Intake and Output 08/18/17 08/19/17 19:00 07:00 Intake Total 630 ml 320 ml Balance 630 ml 320 ml Intake Oral 220 ml 20 ml IV Total 410 ml 300 ml # Voids 4 3 # Bowel Movements 1 Objective WDWN off vent and seems stable NAD reduced breath sounds bilaterally without rhonchi or wheeze [id number] without MRG NABS nontender no HSM no CC edema nonfocal Laboratory Tests 08/19/17 07:05: White Blood Count 5.2, Red Blood Count 3.09L, Hemoglobin 7.1L, Hematocrit 22.9L , Mean Corpuscular Volume 74L, Mean Corpuscular Hemoglobin 23.1L, Mean Corpuscular Hemoglobin Concent 31.2L, Red Cell Distribution Width 18.9H, Platelet Count 261, Mean Platelet Volume 5.1L, Neutrophils (%) (Auto) , Lymphocytes (%) (Auto) , Monocytes (%) (Auto) , Eosinophils (%) (Auto) , Basophils (%) (Auto) , Neutrophils % (Manual) [Pending], Lymphocytes % (Manual) [Pending], Platelet Estimate [Pending], Platelet Morphology [Pending], Sodium Level 138, Potassium Level 4.2, Chloride Level 104, Carbon Dioxide Level 26, Anion Gap 8, Blood Urea Nitrogen 20H, Creatinine 2.0H, Estimat Glomerular Filtration Rate 26.6, Glucose Level 123H, Calcium Level 8.0L Current Medications Medications (Trade) Dose Ordered Sig/Tommy Route PRN Reason Start Time Stop Time Status Last Admin Dose Admin Acetaminophen (Tylenol) 650 mg Q4H PRN NG Mild Pain/Temp > 100.5 08/17/17 15:30 09/07/17 15:29 Acetaminophen (Tylenol) 650 mg Q6H PRN RECTAL for fever 08/17/17 15:30 09/14/17 15:29 Amlodipine Besylate (Norvasc) 10 mg DAILY ORAL 08/18/17 09:00 09/17/17 08:59 08/18/17 08:37 Chlorhexidine Gluconate (Idalia-Hex 2%) 1 applic DAILY@1999 TOPIC 08/17/17 20:00 09/08/17 19:59 08/18/17 21:59 Clonidine HCl (Catapres Tab) 0.1 mg Q4H PRN ORAL SBP > 160 mmHg 08/17/17 15:52 09/16/17 15:51 Clotrimazole (Lotrimin) 1 applic BID TOPIC 08/17/17 18:00 09/15/17 17:59 08/18/17 08:38 Dextrose (Dextrose 50%) 25 ml STAT PRN IV Hypoglycemia 08/17/17 15:30 09/14/17 15:29 Dextrose (Dextrose 50%) 50 ml STAT PRN IV Hypoglycemia 08/17/17 15:30 09/14/17 15:29 Fluconazole (Diflucan) 200 mg DAILY ORAL 08/18/17 09:00 08/24/17 08:59 08/18/17 08:37 Heparin Sodium (Porcine) (Heparin 5000 units/ml) 5,000 units Q8HR SUBQ 08/17/17 15:30 09/16/17 15:29 08/19/17 06:22 Insulin Aspart (NovoLOG) BEFORE MEALS AND HS SUBQ 08/17/17 16:30 09/11/17 11:29 08/19/17 06:23 Insulin Detemir (Levemir) 6 units Q12HR SUBQ 08/17/17 21:00 09/06/17 08:59 08/18/17 22:07 Linezolid 300 ml @ 300 mls/hr Q12HR IVPB 08/17/17 21:00 08/19/17 23:59 08/18/17 21:59 Nateglinide (Starlix) 60 mg TIAC ORAL 08/17/17 16:30 09/16/17 06:29 08/19/17 06:21 Nystatin (Nystop Powder) 1 applic THREE TIMES A DAY TOPIC 08/17/17 18:00 09/15/17 13:59 08/18/17 14:35 Pantoprazole (Protonix) 40 mg ACBREAKFAST ORAL 08/18/17 06:30 09/17/17 06:29 08/19/17 06:21 Silver Sulfadiazine (Silvadene Cream 25gm) 1 applic DAILY TOPIC 08/18/17 09:00 08/31/17 10:29 08/18/17 08:38 Stew Hopson MD August 19, 2017 08:26
[2017-08-19] MEDS: Fluconazole 100mg tab ORAL SCH (09:38)
[2017-08-19] MEDS: Nystatin Powder 100,000 units/gm 15gm TOPIC SCH ×3 (09:39→17:42)
[2017-08-19] MEDS: Levemir Flexpen SUBQ SCH ×2 (10:19→21:40)
[2017-08-19 12:00] VITALS: BP 162/96
--- NOTE | 2017-08-19 12:11 | GI Progress Note ---
Assessment/Plan Problems: (1) Anemia ICD Codes: D64.9 - Anemia, unspecified SNOMED: 806335799 (2) Diabetes mellitus ICD Codes: E11.9 - Type 2 diabetes mellitus without complications SNOMED: 50282933 Status: progressing Status Narrative Discussed with Dr. Hernandez. Assessment/Plan Assessment - Sepsis, improved - resp failure, resolved - DKA - abd wall cellulitis - obesity - Renal failure - Anemia >> OB (+)(-)(-) - extubated today - ST evaluation reviewed Recommendations - soft diet, tolerating - ppi daily - elevated HOB - abx - follow labs and exam - transfuse PRN - OT/PT evaluation - fu labs The patient was seen and examined at bedside and all new and available data was reviewed in the patients chart. I agree with the above findings, impression and plan. (Patient seen earlier today. Signature stamp does not reflect patient encounter time.). - Gianni Hernandez MD Subjective Subjective tolerating food Objective Last 24 Hour Vital Signs Date Time Temp Pulse Resp B/P (MAP) Pulse Ox O2 Delivery O2 Flow Rate FiO2 08/19/17 09:38 92 153/84 08/19/17 08:00 97.3 92 20 153/84 100 97.3 08/19/17 04:00 Nasal Cannula 4.0 08/19/17 04:00 98.4 95 22 146/88 96 98.4 08/19/17 00:00 Nasal Cannula 4.0 08/19/17 00:00 98.6 90 20 138/89 100 98.6 08/18/17 20:00 Nasal Cannula 4.0 08/18/17 20:00 98.6 98 20 135/82 97 98.6 08/18/17 19:30 Nasal Cannula 4.0 36 08/18/17 19:30 94 Nasal Cannula 4.0 36 08/18/17 16:00 97.7 90 20 156/92 97 Nasal Cannula 4.0 97.7 Intake and Output 08/18/17 08/19/17 19:00 07:00 Intake Total 630 ml 320 ml Balance 630 ml 320 ml Intake Oral 220 ml 20 ml IV Total 410 ml 300 ml # Voids 4 3 # Bowel Movements 1 Laboratory Tests Test 08/19/17 07:05 White Blood Count 5.2 K/UL (4.8-10.8) Red Blood Count 3.09 M/UL (4.20-5.40) L Hemoglobin 7.1 G/DL (12.0-16.0) L Hematocrit 22.9 % (37.0-47.0) L Mean Corpuscular Volume 74 FL (80-99) L Mean Corpuscular Hemoglobin 23.1 PG (27.0-31.0) L Mean Corpuscular Hemoglobin Concent 31.2 G/DL (32.0-36.0) L Red Cell Distribution Width 18.9 % (11.6-14.8) H Platelet Count 261 K/UL (150-450) Mean Platelet Volume 5.1 FL (6.5-10.1) L Neutrophils (%) (Auto) % (45.0-75.0) Lymphocytes (%) (Auto) % (20.0-45.0) Monocytes (%) (Auto) % (1.0-10.0) Eosinophils (%) (Auto) % (0.0-3.0) Basophils (%) (Auto) % (0.0-2.0) Differential Total Cells Counted 100 Neutrophils % (Manual) 69 % (45-75) Lymphocytes % (Manual) 20 % (20-45) Monocytes % (Manual) 5 % (1-10) Eosinophils % (Manual) 3 % (0-3) Basophils % (Manual) 1 % (0-2) Band Neutrophils 2 % (0-8) Platelet Estimate Adequate Platelet Morphology Normal Hypochromasia 1+ Anisocytosis 2+ Microcytosis 2+ Sodium Level 138 MMOL/L (136-145) Potassium Level 4.2 MMOL/L (3.5-5.1) Chloride Level 104 MMOL/L (98-107) Carbon Dioxide Level 26 MMOL/L (21-32) Anion Gap 8 mmol/L (5-15) Blood Urea Nitrogen 20 mg/dL (7-18) H Creatinine 2.0 MG/DL (0.55-1.30) H Estimat Glomerular Filtration Rate 26.6 mL/min (>60) Glucose Level 123 MG/DL (74-106) H Calcium Level 8.0 MG/DL (8.5-10.1) L Height (Feet): 5 Height (Inches): 5.00 Weight (Pounds): 321 General Appearance: WD/WN, no apparent distress, alert, morbidly obese Cardiovascular: normal rate Respiratory/Chest: normal breath sounds, no respiratory distress Abdominal Exam: normal bowel sounds, non tender, soft Extremities: normal range of motion, non-tender Ham Gonzalez NP August 19, 2017 12:11
[2017-08-19] MEDS: Promethazine/DM 6.25mg/5ml ORAL PRN (14:37)
--- NOTE | 2017-08-19 14:54 | Cardiac Electrophysiology PN ---
Assessment/Plan Assessment/Plan 1. S/P Septic shock due to diabetic ketoacidosis. On broad-spectrum IV antibiotic. Echocardiogram showed EF 60%. Rule out for MS 2. Diabetic ketoacidosis, on IV fluids and insulin. 3. S/P Cardiac arrest needing atropine. Due to respiratory failure. Now in SR 4. White count of 36,000, abdominal cellulitis. IV antibiotic per Dr. Colbert. 5. Morbid obesity. 6. S/P Respiratory failure 7. ARF on HD via Right IJ. Resolved, dialysis catheter removed 8. Anemia hb 6.9. Transfused 2 units. Now around 8 9. Severe hyponatremia, sodium 118, Resolved DW RN Subjective Subjective Alert in NAD. Awaiting placement Objective Last 24 Hour Vital Signs Date Time Temp Pulse Resp B/P (MAP) Pulse Ox O2 Delivery O2 Flow Rate FiO2 08/19/17 12:00 97.3 94 20 162/96 98 97.3 08/19/17 09:38 92 153/84 08/19/17 08:00 97.3 92 20 153/84 100 97.3 08/19/17 04:00 Nasal Cannula 4.0 08/19/17 04:00 98.4 95 22 146/88 96 98.4 08/19/17 00:00 Nasal Cannula 4.0 08/19/17 00:00 98.6 90 20 138/89 100 98.6 08/18/17 20:00 Nasal Cannula 4.0 08/18/17 20:00 98.6 98 20 135/82 97 98.6 08/18/17 19:30 Nasal Cannula 4.0 36 08/18/17 19:30 94 Nasal Cannula 4.0 36 08/18/17 16:00 97.7 90 20 156/92 97 Nasal Cannula 4.0 97.7 Intake and Output 08/18/17 08/19/17 19:00 07:00 Intake Total 630 ml 320 ml Balance 630 ml 320 ml Intake Oral 220 ml 20 ml IV Total 410 ml 300 ml # Voids 4 3 # Bowel Movements 1 Laboratory Tests Test 08/19/17 07:05 White Blood Count 5.2 K/UL (4.8-10.8) Red Blood Count 3.09 M/UL (4.20-5.40) L Hemoglobin 7.1 G/DL (12.0-16.0) L Hematocrit 22.9 % (37.0-47.0) L Mean Corpuscular Volume 74 FL (80-99) L Mean Corpuscular Hemoglobin 23.1 PG (27.0-31.0) L Mean Corpuscular Hemoglobin Concent 31.2 G/DL (32.0-36.0) L Red Cell Distribution Width 18.9 % (11.6-14.8) H Platelet Count 261 K/UL (150-450) Mean Platelet Volume 5.1 FL (6.5-10.1) L Neutrophils (%) (Auto) % (45.0-75.0) Lymphocytes (%) (Auto) % (20.0-45.0) Monocytes (%) (Auto) % (1.0-10.0) Eosinophils (%) (Auto) % (0.0-3.0) Basophils (%) (Auto) % (0.0-2.0) Differential Total Cells Counted 100 Neutrophils % (Manual) 69 % (45-75) Lymphocytes % (Manual) 20 % (20-45) Monocytes % (Manual) 5 % (1-10) Eosinophils % (Manual) 3 % (0-3) Basophils % (Manual) 1 % (0-2) Band Neutrophils 2 % (0-8) Platelet Estimate Adequate Platelet Morphology Normal Hypochromasia 1+ Anisocytosis 2+ Microcytosis 2+ Sodium Level 138 MMOL/L (136-145) Potassium Level 4.2 MMOL/L (3.5-5.1) Chloride Level 104 MMOL/L (98-107) Carbon Dioxide Level 26 MMOL/L (21-32) Anion Gap 8 mmol/L (5-15) Blood Urea Nitrogen 20 mg/dL (7-18) H Creatinine 2.0 MG/DL (0.55-1.30) H Estimat Glomerular Filtration Rate 26.6 mL/min (>60) Glucose Level 123 MG/DL (74-106) H Calcium Level 8.0 MG/DL (8.5-10.1) L Objective HEAD AND NECK: No JVD, LUNGS: Coarse rhonchi. CARDIOVASCULAR: Regular S1 and S2 with no gallop. ABDOMEN: Cellulitis of the lower abdomen and erythema. EXTREMITIES: 1+ pitting edema. Adama Trujillo MD August 19, 2017 14:54
[2017-08-19 16:00] VITALS: BP 153/80
--- NOTE | 2017-08-19 16:18 | Infectious Diseases Prog Note ---
Assessment/Plan Problems: (1) Cellulitis of abdominal wall Assessment & Plan: complicated with panniculitis, improving , S/P meropenem and zyvox empiric coverage for more than two weeks which cover her left forearm cellulitis too , bone scan of the left leg ruled out osteomyelitis also her ankle X ray , repeated blood culture is negative . she has slow recovery due to significant lymphedema and fluids overload. continue fungal coverage for her skin folds and recommend to keep area well ventilated (2) UTI (urinary tract infection) Assessment & Plan: due to strep agalactiae and staph aureus, improved , S/P meropenem for two weeks (3) Septic shock Assessment & Plan: resolved, due to the above , repeated blood culture is negative , S/P meropenem and zyvox for more than two weeks to cover her forearm cellulitis too , monitor WBC (4) Respiratory failure requiring intubation Assessment & Plan: with fluids over load and pleural effusion, improved , was extubated , continue HD to remove more fluids as tolerated , monitor CXR. (5) SCARLET (acute kidney injury) Assessment & Plan: still on HD , has mild improvement in her urine output, nephrology is following, monitor UOP (6) DKA (diabetic ketoacidoses) Assessment & Plan: due to poorly controlled diabetes and sepsis, S/P insulin drip in the ICU , continue close monitor of her blood glucose to keep between 80 -120 (7) Leg wound, left Assessment & Plan: with infection due to staph aureus and klebsiella oxytoca, S /P meropenem and zyvox for more than two weeks , continue local wound care as per hospital protocol , bone scan ruled out underlying osteomyelitis also her X ray . (8) Forearm swelling Assessment & Plan: with redness and erythema, infiltration due to IV line, VS phlebitis, doubt an abscess since she is on wide spectrum covergae of antibiotics . venous doppler was negative for DVT as per preliminary report , continue heat pads and wide spectrum antibiotics Subjective Constitutional: Reports: no symptoms HEENT: Reports: no symptoms Respiratory: Reports: dry cough Breasts: Reports: no symptoms Cardiovascular: Reports: no symptoms Gastrointestinal/Abdominal: Reports: no symptoms Genitourinary: Reports: no symptoms Neurologic: Reports: no symptoms Psychiatric: Reports: no symptoms Skin: Reports: no symptoms Endocrine: Reports: no symptoms Hematologic: Reports: no symptoms Musculoskeletal: Reports: no symptoms Allergies: Coded Allergies: LATEX (Verified Allergy, Unknown, skin rash, 08/12/17) PENICILLINS (Verified Allergy, Unknown, 07/30/17) According to mother, the patient is allergic to Penicillins Subjective she was awake and alert, had dry cough, with less left forearm redness and swelling . no fever , no chills today. has less lymphedema in her lower abdomen skin and less redness. small skin breaks drying out at the folds site with redness . Objective Vital Signs Last 24 Hour Vital Signs Date Time Temp Pulse Resp B/P (MAP) Pulse Ox O2 Delivery O2 Flow Rate FiO2 08/19/17 12:00 97.3 94 20 162/96 98 97.3 08/19/17 09:38 92 153/84 08/19/17 08:00 97.3 92 20 153/84 100 97.3 08/19/17 04:00 Nasal Cannula 4.0 08/19/17 04:00 98.4 95 22 146/88 96 98.4 08/19/17 00:00 Nasal Cannula 4.0 08/19/17 00:00 98.6 90 20 138/89 100 98.6 08/18/17 20:00 Nasal Cannula 4.0 08/18/17 20:00 98.6 98 20 135/82 97 98.6 08/18/17 19:30 Nasal Cannula 4.0 36 08/18/17 19:30 94 Nasal Cannula 4.0 36 Height (Feet): 5 Height (Inches): 5.00 Weight (Pounds): 321 General Appearance: WD/WN, no acute distress HEENT: normocephalic, atraumatic, anicteric, mucous membranes moist, PERRL Respiratory/Chest: chest wall non-tender, lungs clear, normal breath sounds, no respiratory distress, no accessory muscle use Cardiovascular: normal peripheral pulses, normal rate, regular rhythm, no gallop/murmur, no JVD Abdomen: normal bowel sounds, soft, non tender, no organomegaly, non distended , no mass, no scars Extremities: no cyanosis, no clubbing Skin: no rash, no lesions, ulcers, other - redness at the folds Neurologic/Psychiatric: alert, oriented x 3, responsive Lymphatic: no neck adenopathy, no groin adenopathy Laboratory Tests Test 08/19/17 07:05 White Blood Count 5.2 K/UL (4.8-10.8) Red Blood Count 3.09 M/UL (4.20-5.40) L Hemoglobin 7.1 G/DL (12.0-16.0) L Hematocrit 22.9 % (37.0-47.0) L Mean Corpuscular Volume 74 FL (80-99) L Mean Corpuscular Hemoglobin 23.1 PG (27.0-31.0) L Mean Corpuscular Hemoglobin Concent 31.2 G/DL (32.0-36.0) L Red Cell Distribution Width 18.9 % (11.6-14.8) H Platelet Count 261 K/UL (150-450) Mean Platelet Volume 5.1 FL (6.5-10.1) L Neutrophils (%) (Auto) % (45.0-75.0) Lymphocytes (%) (Auto) % (20.0-45.0) Monocytes (%) (Auto) % (1.0-10.0) Eosinophils (%) (Auto) % (0.0-3.0) Basophils (%) (Auto) % (0.0-2.0) Differential Total Cells Counted 100 Neutrophils % (Manual) 69 % (45-75) Lymphocytes % (Manual) 20 % (20-45) Monocytes % (Manual) 5 % (1-10) Eosinophils % (Manual) 3 % (0-3) Basophils % (Manual) 1 % (0-2) Band Neutrophils 2 % (0-8) Platelet Estimate Adequate Platelet Morphology Normal Hypochromasia 1+ Anisocytosis 2+ Microcytosis 2+ Sodium Level 138 MMOL/L (136-145) Potassium Level 4.2 MMOL/L (3.5-5.1) Chloride Level 104 MMOL/L (98-107) Carbon Dioxide Level 26 MMOL/L (21-32) Anion Gap 8 mmol/L (5-15) Blood Urea Nitrogen 20 mg/dL (7-18) H Creatinine 2.0 MG/DL (0.55-1.30) H Estimat Glomerular Filtration Rate 26.6 mL/min (>60) Glucose Level 123 MG/DL (74-106) H Calcium Level 8.0 MG/DL (8.5-10.1) L Current Medications Medications (Trade) Dose Ordered Sig/Tommy Route PRN Reason Start Time Stop Time Status Last Admin Dose Admin Acetaminophen (Tylenol) 650 mg Q4H PRN NG Mild Pain/Temp > 100.5 08/17/17 15:30 09/07/17 15:29 Acetaminophen (Tylenol) 650 mg Q6H PRN RECTAL for fever 08/17/17 15:30 09/14/17 15:29 Amlodipine Besylate (Norvasc) 10 mg DAILY ORAL 08/18/17 09:00 09/17/17 08:59 08/19/17 09:38 Chlorhexidine Gluconate (Idalia-Hex 2%) 1 applic DAILY@2000 TOPIC 08/17/17 20:00 09/08/17 19:59 08/18/17 21:59 Clonidine HCl (Catapres Tab) 0.1 mg Q4H PRN ORAL SBP > 160 mmHg 08/17/17 15:52 09/16/17 15:51 Clotrimazole (Lotrimin) 1 applic BID TOPIC 08/17/17 18:00 09/15/17 17:59 08/19/17 09:39 Dextrose (Dextrose 50%) 25 ml STAT PRN IV Hypoglycemia 08/17/17 15:30 09/14/17 15:29 Dextrose (Dextrose 50%) 50 ml STAT PRN IV Hypoglycemia 08/17/17 15:30 09/14/17 15:29 Heparin Sodium (Porcine) (Heparin 5000 units/ml) 5,000 units Q8HR SUBQ 08/17/17 15:30 09/16/17 15:29 08/19/17 14:38 Insulin Aspart (NovoLOG) BEFORE MEALS AND HS SUBQ 08/17/17 16:30 09/11/17 11:29 08/19/17 12:16 Insulin Detemir (Levemir) 6 units Q12HR SUBQ 08/17/17 21:00 09/06/17 08:59 08/19/17 10:19 Linezolid 300 ml @ 300 mls/hr Q12HR IVPB 08/17/17 21:00 08/19/17 23:59 08/19/17 09:38 Nateglinide (Starlix) 60 mg TIAC ORAL 08/17/17 16:30 09/16/17 06:29 08/19/17 12:14 Nystatin (Nystop Powder) 1 applic THREE TIMES A DAY TOPIC 08/17/17 18:00 09/15/17 13:59 08/19/17 14:37 Pantoprazole (Protonix) 40 mg ACBREAKFAST ORAL 08/18/17 06:30 09/17/17 06:29 08/19/17 06:21 Promethazine HCl/ Dextromethorphan (Phenergan DM) 6.25 mg Q6H PRN ORAL For Cough 08/19/17 14:00 09/18/17 13:59 08/19/17 14:37 Silver Sulfadiazine (Silvadene Cream 25gm) 1 applic DAILY TOPIC 08/18/17 09:00 08/31/17 10:29 08/19/17 09:38 Johanny Colbert M.D. August 19, 2017 16:18
[2017-08-19] MEDS ORDERED: Tubing IV Secondary IV ONE (17:38)
[2017-08-19] MEDS ORDERED: NS 275ml ONE (17:38)
[2017-08-19 20:00] VITALS: BP 141/83
[2017-08-19] MEDS: Dyna-Hex 2% Top Sol 2oz TOPIC SCH (20:00)
[2017-08-20 04:00] VITALS: BP 149/84
[2017-08-20] MEDS: NovoLOG Insulin Flexpen SUBQ SCH ×4 (06:06→20:23)
[2017-08-20] MEDS: Nateglinide 60mg tab ORAL SCH ×3 (06:06→16:58)
[2017-08-20] MEDS: Heparin 5000 units/ml inj SUBQ SCH ×3 (06:10→21:31)
[2017-08-20 08:00] VITALS: BP 168/88
--- NOTE | 2017-08-20 09:27 | Nephrology Progress Note ---
Assessment/Plan Assessment/Plan 1. SCARLET- ATN resolving, Cr down to 2 yesterday. Dialysis catheter removed - AM labs pending - multifact ATN (sepsis induced inflammotory cytokine prox tub damage/ ishchemic ATN hypotension/vol dep) 2. DM- on insulin and oral hypoglycemics 3. Septic Shock- etiology likely from abd cellulitis. Abx mgmt per ID. - resolved 4. HTN- Norvasc and started Coreg. Advised patient family not to bring in fast highly salty food 5. Disposition- due to insurance status , patient does not qualify for HH or SNF. Will have to be DCed home with self care/walker 6. Hypok+/Ca/Phos- replace prn 7. Anemia- When stable GI anticipates procedure. -PRN Bld tx Hgb <7 - will d/w GI if any procedures prior to DC on Tuesday or . Hgb 7.1 Subjective Date patient seen: August 20, 2017 Time patient seen: 09:22 ROS Limited/Unobtainable: No Constitutional: Reports: weakness Allergies: Coded Allergies: LATEX (Verified Allergy, Unknown, skin rash, 08/12/17) PENICILLINS (Verified Allergy, Unknown, 07/30/17) According to mother, the patient is allergic to Penicillins All Systems: reviewed and negative except above Subjective Patient continues to improve. Advised patient to actively participate in PT excercises Objective Last 24 Hour Vital Signs Date Time Temp Pulse Resp B/P (MAP) Pulse Ox O2 Delivery O2 Flow Rate FiO2 08/20/17 08:13 Nasal Cannula 4.0 36 08/20/17 08:13 96 Nasal Cannula 4.0 36 08/20/17 08:00 98.3 98 20 168/88 97 98.3 08/20/17 04:00 98.1 92 19 149/84 97 98.1 08/19/17 20:21 Nasal Cannula 4.0 36 08/19/17 20:21 96 Nasal Cannula 4.0 36 08/19/17 20:00 97 19 141/83 96 08/19/17 16:00 97.9 96 20 153/80 96 97.9 08/19/17 12:00 97.3 94 20 162/96 98 97.3 08/19/17 09:38 92 153/84 Intake and Output 08/19/17 08/20/17 19:00 07:00 Intake Total 540 ml Output Total 1600 ml Balance 540 ml -1600 ml Intake Oral 240 ml IV Total 300 ml Output Urine Total 1600 ml # Voids 4 # Bowel Movements 2 2 Height (Feet): 5 Height (Inches): 5.00 Weight (Pounds): 313 General Appearance: no apparent distress, alert EENT: PERRL/EOMI, normal ENT inspection Neck: normal alignment, supple Cardiovascular: normal rate, regular rhythm Respiratory/Chest: lungs clear, normal breath sounds Abdomen: non tender, soft Edema: 1+ Arm (L), 1+ Arm (R), 1+ Leg (L), 1+ Leg (R), 1+ Pedal (L), 1+ Pedal ( R), 1+ Generalized Carlton Guzmán M.D. August 20, 2017 09:27
[2017-08-20] MEDS: Carvedilol 6.25mg Tab ORAL SCH ×2 (09:42→20:20)
[2017-08-20] MEDS: Nystatin Powder 100,000 units/gm 15gm TOPIC SCH ×3 (09:43→18:59)
[2017-08-20] MEDS: Levemir Flexpen SUBQ SCH ×2 (09:44→20:23)
[2017-08-20 11:02] LABS: HEMATOCRIT 23.4 % (37.0-47.0); HEMOGLOBIN 7.2 G/DL (12.0-16.0); MEAN CORPUSCULAR VOLUME 74 FL (80-99); PLATELET COUNT 253 K/UL (150-450); RED BLOOD COUNT 3.15 M/UL (4.20-5.40); RED CELL DISTRIBUTION WIDTH 18.7 % (11.6-14.8); WHITE BLOOD COUNT 5.3 K/UL (4.8-10.8)
[2017-08-20] MEDS ORDERED: NS 500ML ONE ×2 (11:08→11:22)
[2017-08-20] MEDS ORDERED: NS 275ml ONE (11:09)
[2017-08-20] MEDS ORDERED: Tubing IV Secondary IV ONE (11:09)
[2017-08-20 11:25] LABS: ANION GAP 7 mmol/L (5-15); BLOOD UREA NITROGEN 15 mg/dL (7-18); CALCIUM 7.9 MG/DL (8.5-10.1); CARBON DIOXIDE 27 MMOL/L (21-32); CHLORIDE 106 MMOL/L (98-107); CREATININE 1.6 MG/DL (0.55-1.30); POTASSIUM 4.1 MMOL/L (3.5-5.1); SODIUM 140 MMOL/L (136-145)
[2017-08-20 11:45] VITALS: BP 139/79
--- NOTE | 2017-08-20 15:55 | Cardiac Electrophysiology PN ---
Assessment/Plan Assessment/Plan 1. S/P Septic shock due to diabetic ketoacidosis. On broad-spectrum IV antibiotic. Echocardiogram showed EF 60%. Rule out for MN 2. Diabetic ketoacidosis, on IV fluids and insulin. 3. S/P Cardiac arrest needing atropine. Due to respiratory failure 4. White count of 36,000, abdominal cellulitis. IV antibiotic per Dr. Colbert. 5. Morbid obesity. 6. S/P Respiratory failure 7. ARF on HD via Right IJ. Resolved, dialysis catheter removed 8. Anemia hb 6.9. Transfused 2 units. Now around 8 9. Severe hyponatremia Resolved DW RN Subjective Subjective Alert in NAD. Walked in the hallway. Objective Last 24 Hour Vital Signs Date Time Temp Pulse Resp B/P (MAP) Pulse Ox O2 Delivery O2 Flow Rate FiO2 08/20/17 11:45 99.2 85 21 139/79 97 99.2 08/20/17 09:42 98 168/88 08/20/17 09:42 98 168/88 08/20/17 08:13 Nasal Cannula 4.0 36 08/20/17 08:13 96 Nasal Cannula 4.0 36 08/20/17 08:00 98.3 98 20 168/88 97 98.3 08/20/17 04:00 98.1 92 19 149/84 97 98.1 08/19/17 20:21 Nasal Cannula 4.0 36 08/19/17 20:21 96 Nasal Cannula 4.0 36 08/19/17 20:00 97 19 141/83 96 08/19/17 16:00 97.9 96 20 153/80 96 97.9 Intake and Output 08/19/17 08/20/17 19:00 07:00 Intake Total 540 ml Output Total 1600 ml Balance 540 ml -1600 ml Intake Oral 240 ml IV Total 300 ml Output Urine Total 1600 ml # Voids 4 # Bowel Movements 2 2 Laboratory Tests Test 08/20/17 10:00 White Blood Count 5.3 K/UL (4.8-10.8) Red Blood Count 3.15 M/UL (4.20-5.40) L Hemoglobin 7.2 G/DL (12.0-16.0) L Hematocrit 23.4 % (37.0-47.0) L Mean Corpuscular Volume 74 FL (80-99) L Mean Corpuscular Hemoglobin 22.9 PG (27.0-31.0) L Mean Corpuscular Hemoglobin Concent 30.7 G/DL (32.0-36.0) L Red Cell Distribution Width 18.7 % (11.6-14.8) H Platelet Count 253 K/UL (150-450) Mean Platelet Volume 4.8 FL (6.5-10.1) L Neutrophils (%) (Auto) % (45.0-75.0) Lymphocytes (%) (Auto) % (20.0-45.0) Monocytes (%) (Auto) % (1.0-10.0) Eosinophils (%) (Auto) % (0.0-3.0) Basophils (%) (Auto) % (0.0-2.0) Differential Total Cells Counted 100 Neutrophils % (Manual) 59 % (45-75) Lymphocytes % (Manual) 29 % (20-45) Monocytes % (Manual) 9 % (1-10) Eosinophils % (Manual) 3 % (0-3) Basophils % (Manual) 0 % (0-2) Band Neutrophils 0 % (0-8) Platelet Estimate Adequate Platelet Morphology Normal Hypochromasia 1+ Anisocytosis 1+ Microcytosis 1+ Sodium Level 140 MMOL/L (136-145) Potassium Level 4.1 MMOL/L (3.5-5.1) Chloride Level 106 MMOL/L (98-107) Carbon Dioxide Level 27 MMOL/L (21-32) Anion Gap 7 mmol/L (5-15) Blood Urea Nitrogen 15 mg/dL (7-18) Creatinine 1.6 MG/DL (0.55-1.30) H Estimat Glomerular Filtration Rate 34.4 mL/min (>60) Glucose Level 168 MG/DL (74-106) H Calcium Level 7.9 MG/DL (8.5-10.1) L Objective HEAD AND NECK: No JVD, LUNGS: Coarse rhonchi. CARDIOVASCULAR: Regular S1 and S2 with no gallop. ABDOMEN: Cellulitis of the lower abdomen EXTREMITIES: 1+ pitting edema. Adama Trujillo MD August 20, 2017 15:55
[2017-08-20 16:00] VITALS: BP 139/79
--- NOTE | 2017-08-20 16:00 | Pulmonology Progress Note ---
Assessment/Plan Assessment/Plan respiratory failure s/p extubation and now with reintubation DKA sepsis abd wall cellulitis fluid overload effusions and edema anemia PLAN respiratory as is monitor for change no new recommendations Subjective Allergies: Coded Allergies: LATEX (Verified Allergy, Unknown, skin rash, 08/12/17) PENICILLINS (Verified Allergy, Unknown, 07/30/17) According to mother, the patient is allergic to Penicillins Subjective off vent- stable d/w RN remains stable overall Objective Last 24 Hour Vital Signs Date Time Temp Pulse Resp B/P (MAP) Pulse Ox O2 Delivery O2 Flow Rate FiO2 08/20/17 11:45 99.2 85 21 139/79 97 99.2 08/20/17 09:42 98 168/88 08/20/17 09:42 98 168/88 08/20/17 08:13 Nasal Cannula 4.0 36 08/20/17 08:13 96 Nasal Cannula 4.0 36 08/20/17 08:00 98.3 98 20 168/88 97 98.3 08/20/17 04:00 98.1 92 19 149/84 97 98.1 08/19/17 20:21 Nasal Cannula 4.0 36 08/19/17 20:21 96 Nasal Cannula 4.0 36 08/19/17 20:00 97 19 141/83 96 08/19/17 16:00 97.9 96 20 153/80 96 97.9 Intake and Output 08/19/17 08/20/17 19:00 07:00 Intake Total 540 ml Output Total 1600 ml Balance 540 ml -1600 ml Intake Oral 240 ml IV Total 300 ml Output Urine Total 1600 ml # Voids 4 # Bowel Movements 2 2 Objective WDWN off vent and seems stable NAD reduced breath sounds bilaterally without rhonchi or wheeze [id number] without MRG NABS nontender no HSM no CC edema nonfocal Laboratory Tests 08/20/17 10:00: White Blood Count 5.3, Red Blood Count 3.15L, Hemoglobin 7.2L, Hematocrit 23.4L , Mean Corpuscular Volume 74L, Mean Corpuscular Hemoglobin 22.9L, Mean Corpuscular Hemoglobin Concent 30.7L, Red Cell Distribution Width 18.7H, Platelet Count 253, Mean Platelet Volume 4.8L, Neutrophils (%) (Auto) , Lymphocytes (%) (Auto) , Monocytes (%) (Auto) , Eosinophils (%) (Auto) , Basophils (%) (Auto) , Differential Total Cells Counted 100, Neutrophils % ( Manual) 59, Lymphocytes % (Manual) 29, Monocytes % (Manual) 9, Eosinophils % ( Manual) 3, Basophils % (Manual) 0, Band Neutrophils 0, Platelet Estimate Adequate, Platelet Morphology Normal, Hypochromasia 1+, Anisocytosis 1+, Microcytosis 1+, Sodium Level 140, Potassium Level 4.1, Chloride Level 106, Carbon Dioxide Level 27, Anion Gap 7, Blood Urea Nitrogen 15, Creatinine 1.6H, Estimat Glomerular Filtration Rate 34.4, Glucose Level 168H, Calcium Level 7.9L Current Medications Medications (Trade) Dose Ordered Sig/Tommy Route PRN Reason Start Time Stop Time Status Last Admin Dose Admin Acetaminophen (Tylenol) 650 mg Q4H PRN NG Mild Pain/Temp > 100.5 08/17/17 15:30 09/07/17 15:29 Acetaminophen (Tylenol) 650 mg Q6H PRN RECTAL for fever 08/17/17 15:30 09/14/17 15:29 Amlodipine Besylate (Norvasc) 10 mg DAILY ORAL 08/18/17 09:00 09/17/17 08:59 08/20/17 09:42 Carvedilol (Coreg) 6.25 mg EVERY 12 HOURS ORAL 08/20/17 10:00 09/19/17 09:59 08/20/17 09:42 Chlorhexidine Gluconate (Idalia-Hex 2%) 1 applic DAILY@1999 TOPIC 08/17/17 20:00 09/08/17 19:59 08/18/17 21:59 Clonidine HCl (Catapres Tab) 0.1 mg Q4H PRN ORAL SBP > 160 mmHg 08/17/17 15:52 09/16/17 15:51 Clotrimazole (Lotrimin) 1 applic BID TOPIC 08/17/17 18:00 09/15/17 17:59 08/19/17 09:39 Dextrose (Dextrose 50%) 25 ml STAT PRN IV Hypoglycemia 08/17/17 15:30 09/14/17 15:29 Dextrose (Dextrose 50%) 50 ml STAT PRN IV Hypoglycemia 08/17/17 15:30 09/14/17 15:29 Heparin Sodium (Porcine) (Heparin 5000 units/ml) 5,000 units Q8HR SUBQ 08/17/17 15:30 09/16/17 15:29 08/20/17 14:21 Insulin Aspart (NovoLOG) BEFORE MEALS AND HS SUBQ 08/17/17 16:30 09/11/17 11:29 08/20/17 11:57 Insulin Detemir (Levemir) 6 units Q12HR SUBQ 08/17/17 21:00 09/06/17 08:59 08/20/17 09:44 Nateglinide (Starlix) 60 mg TIAC ORAL 08/17/17 16:30 09/16/17 06:29 08/20/17 11:56 Nystatin (Nystop Powder) 1 applic THREE TIMES A DAY TOPIC 08/17/17 18:00 09/15/17 13:59 08/20/17 14:19 Pantoprazole (Protonix) 40 mg ACBREAKFAST ORAL 08/18/17 06:30 09/17/17 06:29 08/20/17 06:06 Promethazine HCl/ Dextromethorphan (Phenergan DM) 6.25 mg Q6H PRN ORAL For Cough 08/19/17 14:00 09/18/17 13:59 08/19/17 14:37 Silver Sulfadiazine (Silvadene Cream 25gm) 1 applic DAILY TOPIC 08/18/17 09:00 08/31/17 10:29 08/19/17 09:38 Stew Hopson MD August 20, 2017 16:00
[2017-08-20 20:00] VITALS: BP 152/86
[2017-08-20] MEDS: Dyna-Hex 2% Top Sol 2oz TOPIC SCH (20:20)
[2017-08-21] VITALS (7 sets, daily range): BP systolic 131–159; BP diastolic 73–90
[2017-08-21] MEDS: Nateglinide 60mg tab ORAL SCH ×3 (06:02→16:45)
[2017-08-21] MEDS: NovoLOG Insulin Flexpen SUBQ SCH ×4 (06:03→20:19)
[2017-08-21] MEDS: Heparin 5000 units/ml inj SUBQ SCH ×3 (06:04→21:39)
--- NOTE | 2017-08-21 07:01 | Pulmonology Progress Note ---
Assessment/Plan Assessment/Plan respiratory failure s/p extubation and now with reintubation DKA sepsis abd wall cellulitis fluid overload effusions and edema anemia PLAN respiratory as is monitor for change no new recommendations Subjective Allergies: Coded Allergies: LATEX (Verified Allergy, Unknown, skin rash, 08/12/17) PENICILLINS (Verified Allergy, Unknown, 07/30/17) According to mother, the patient is allergic to Penicillins Subjective off vent- stable d/w RN remains stable and alert Objective Last 24 Hour Vital Signs Date Time Temp Pulse Resp B/P (MAP) Pulse Ox O2 Delivery O2 Flow Rate FiO2 08/21/17 04:00 98.7 92 20 134/75 95 98.7 08/21/17 00:00 99.4 91 20 131/73 94 99.4 08/20/17 20:20 96 152/86 08/20/17 20:00 99.2 96 20 152/86 96 99.2 08/20/17 16:00 99.0 94 20 139/79 97 99.0 08/20/17 11:45 99.2 85 21 139/79 97 99.2 08/20/17 09:42 98 168/88 08/20/17 09:42 98 168/88 08/20/17 08:13 Nasal Cannula 4.0 36 08/20/17 08:13 96 Nasal Cannula 4.0 36 08/20/17 08:00 98.3 98 20 168/88 97 98.3 Intake and Output 08/20/17 08/21/17 19:00 07:00 Intake Total 240 ml 650 ml Output Total 2200 ml Balance 240 ml -1550 ml Intake Oral 240 ml 650 ml Output Urine Total 2200 ml Objective WDWN off vent and seems stable NAD reduced breath sounds bilaterally without rhonchi or wheeze [id number] without MRG NABS nontender no HSM no CC edema nonfocal Laboratory Tests 08/20/17 10:00: White Blood Count 5.3, Red Blood Count 3.15L, Hemoglobin 7.2L, Hematocrit 23.4L , Mean Corpuscular Volume 74L, Mean Corpuscular Hemoglobin 22.9L, Mean Corpuscular Hemoglobin Concent 30.7L, Red Cell Distribution Width 18.7H, Platelet Count 253, Mean Platelet Volume 4.8L, Neutrophils (%) (Auto) , Lymphocytes (%) (Auto) , Monocytes (%) (Auto) , Eosinophils (%) (Auto) , Basophils (%) (Auto) , Differential Total Cells Counted 100, Neutrophils % ( Manual) 59, Lymphocytes % (Manual) 29, Monocytes % (Manual) 9, Eosinophils % ( Manual) 3, Basophils % (Manual) 0, Band Neutrophils 0, Platelet Estimate Adequate, Platelet Morphology Normal, Hypochromasia 1+, Anisocytosis 1+, Microcytosis 1+, Sodium Level 140, Potassium Level 4.1, Chloride Level 106, Carbon Dioxide Level 27, Anion Gap 7, Blood Urea Nitrogen 15, Creatinine 1.6H, Estimat Glomerular Filtration Rate 34.4, Glucose Level 168H, Calcium Level 7.9L Current Medications Medications (Trade) Dose Ordered Sig/Tommy Route PRN Reason Start Time Stop Time Status Last Admin Dose Admin Acetaminophen (Tylenol) 650 mg Q4H PRN NG Mild Pain/Temp > 100.5 08/17/17 15:30 09/07/17 15:29 Acetaminophen (Tylenol) 650 mg Q6H PRN RECTAL for fever 08/17/17 15:30 09/14/17 15:29 Amlodipine Besylate (Norvasc) 10 mg DAILY ORAL 08/18/17 09:00 09/17/17 08:59 08/20/17 09:42 Carvedilol (Coreg) 6.25 mg EVERY 12 HOURS ORAL 08/20/17 10:00 09/19/17 09:59 08/20/17 20:20 Chlorhexidine Gluconate (Idalia-Hex 2%) 1 applic DAILY@2000 TOPIC 08/17/17 20:00 09/08/17 19:59 08/20/17 20:20 Clonidine HCl (Catapres Tab) 0.1 mg Q4H PRN ORAL SBP > 160 mmHg 08/17/17 15:52 09/16/17 15:51 Clotrimazole (Lotrimin) 1 applic BID TOPIC 08/17/17 18:00 09/15/17 17:59 08/19/17 09:39 Dextrose (Dextrose 50%) 25 ml STAT PRN IV Hypoglycemia 08/17/17 15:30 09/14/17 15:29 Dextrose (Dextrose 50%) 50 ml STAT PRN IV Hypoglycemia 08/17/17 15:30 09/14/17 15:29 Heparin Sodium (Porcine) (Heparin 5000 units/ml) 5,000 units Q8HR SUBQ 08/17/17 15:30 09/16/17 15:29 08/21/17 06:04 Insulin Aspart (NovoLOG) BEFORE MEALS AND HS SUBQ 08/17/17 16:30 09/11/17 11:29 08/21/17 06:03 Insulin Detemir (Levemir) 6 units Q12HR SUBQ 08/17/17 21:00 09/06/17 08:59 08/20/17 20:23 Nateglinide (Starlix) 60 mg TIAC ORAL 08/17/17 16:30 09/16/17 06:29 08/21/17 06:02 Nystatin (Nystop Powder) 1 applic THREE TIMES A DAY TOPIC 08/17/17 18:00 09/15/17 13:59 08/20/17 18:59 Pantoprazole (Protonix) 40 mg ACBREAKFAST ORAL 08/18/17 06:30 09/17/17 06:29 08/21/17 06:02 Promethazine HCl/ Dextromethorphan (Phenergan DM) 6.25 mg Q6H PRN ORAL For Cough 08/19/17 14:00 09/18/17 13:59 08/19/17 14:37 Silver Sulfadiazine (Silvadene Cream 25gm) 1 applic DAILY TOPIC 08/18/17 09:00 08/31/17 10:29 08/19/17 09:38 Stew Hopson MD August 21, 2017 07:01
[2017-08-21] MEDS: Nystatin Powder 100,000 units/gm 15gm TOPIC SCH ×3 (08:37→17:39)
[2017-08-21] MEDS: Carvedilol 6.25mg Tab ORAL SCH ×2 (08:38→20:15)
--- NOTE | 2017-08-21 09:48 | Nephrology Progress Note ---
Assessment/Plan Assessment/Plan 1. SCARLET- ATN resolving, Cr 1.6 - multifact ATN (sepsis induced inflammotory cytokine prox tub damage/ ishchemic ATN hypotension/vol dep) 2. DM- on insulin and oral hypoglycemics 3. Septic Shock- Abx mgmt per ID. - resolved 4. HTN- Norvasc and Coreg. At goal 5. Disposition- due to insurance status , patient does not qualify for HH or SNF. - DC home with self care/walker on Tuesday 6. Hypok+/Ca/Phos- replace prn 7. Anemia- symptomatic with exertion, therefore 2 Units blood Tx today Subjective Date patient seen: August 21, 2017 Time patient seen: 09:39 ROS Limited/Unobtainable: No Constitutional: Reports: weakness Allergies: Coded Allergies: LATEX (Verified Allergy, Unknown, skin rash, 08/12/17) PENICILLINS (Verified Allergy, Unknown, 07/30/17) According to mother, the patient is allergic to Penicillins All Systems: reviewed and negative except above Subjective Patient continues to improve. Feels SOB with exertion Objective Last 24 Hour Vital Signs Date Time Temp Pulse Resp B/P (MAP) Pulse Ox O2 Delivery O2 Flow Rate FiO2 08/21/17 08:38 95 135/86 08/21/17 08:38 95 135/86 08/21/17 08:00 99.5 95 20 135/86 94 Nasal Cannula 2.0 99.5 08/21/17 04:00 98.7 92 20 134/75 95 98.7 08/21/17 00:00 99.4 91 20 131/73 94 99.4 08/20/17 20:20 96 152/86 08/20/17 20:00 99.2 96 20 152/86 96 99.2 08/20/17 16:00 99.0 94 20 139/79 97 99.0 08/20/17 11:45 99.2 85 21 139/79 97 99.2 08/20/17 09:42 98 168/88 08/20/17 09:42 98 168/88 Intake and Output 08/20/17 08/21/17 19:00 07:00 Intake Total 240 ml 650 ml Output Total 2200 ml Balance 240 ml -1550 ml Intake Oral 240 ml 650 ml Output Urine Total 2200 ml Laboratory Tests 5/26/18 10:00: White Blood Count 5.3, Red Blood Count 3.15L, Hemoglobin 7.2L, Hematocrit 23.4L , Mean Corpuscular Volume 74L, Mean Corpuscular Hemoglobin 22.9L, Mean Corpuscular Hemoglobin Concent 30.7L, Red Cell Distribution Width 18.7H, Platelet Count 253, Mean Platelet Volume 4.8L, Neutrophils (%) (Auto) , Lymphocytes (%) (Auto) , Monocytes (%) (Auto) , Eosinophils (%) (Auto) , Basophils (%) (Auto) , Differential Total Cells Counted 100, Neutrophils % ( Manual) 59, Lymphocytes % (Manual) 29, Monocytes % (Manual) 9, Eosinophils % ( Manual) 3, Basophils % (Manual) 0, Band Neutrophils 0, Platelet Estimate Adequate, Platelet Morphology Normal, Hypochromasia 1+, Anisocytosis 1+, Microcytosis 1+, Sodium Level 140, Potassium Level 4.1, Chloride Level 106, Carbon Dioxide Level 27, Anion Gap 7, Blood Urea Nitrogen 15, Creatinine 1.6H, Estimat Glomerular Filtration Rate 34.4, Glucose Level 168H, Calcium Level 7.9L Height (Feet): 5 Height (Inches): 5.00 Weight (Pounds): 315 General Appearance: no apparent distress, alert EENT: normal ENT inspection, TMs normal Neck: normal alignment, supple Cardiovascular: normal rate, regular rhythm Respiratory/Chest: lungs clear, normal breath sounds Abdomen: non tender, soft Edema: 1+ Arm (L), 1+ Arm (R), 1+ Leg (L), 1+ Leg (R), 1+ Pedal (L), 1+ Pedal ( R), 1+ Generalized Carlton Guzmán M.D. August 21, 2017 09:48
[2017-08-21] MEDS: Levemir Flexpen SUBQ SCH ×2 (09:58→20:19)
--- NOTE | 2017-08-21 13:23 | Infectious Diseases Prog Note ---
Assessment/Plan Problems: (1) Cellulitis of abdominal wall Assessment & Plan: complicated with panniculitis, improving , S/P meropenem and zyvox empiric coverage for more than two weeks which cover her left forearm cellulitis too , bone scan of the left leg ruled out osteomyelitis also her ankle X ray , repeated blood culture is negative . she has slow recovery due to significant lymphedema and fluids overload. continue local wound care for the left lower folds , will send wound culture since her blisters are open and draining clear fluids , request wound care consult , continue local fungal coverage for her skin folds and and add ceftriaxone with doxycycline empiric coverage for her skin wounds, recommend to keep area well ventilated (2) UTI (urinary tract infection) Assessment & Plan: due to strep agalactiae and staph aureus, improved , S/P meropenem for two weeks (3) Septic shock Assessment & Plan: resolved, due to the above , repeated blood culture is negative , S/P meropenem and zyvox for more than two weeks to cover her forearm cellulitis too , monitor WBC (4) Respiratory failure requiring intubation Assessment & Plan: with fluids over load and pleural effusion, improved , was extubated , continue HD to remove more fluids as tolerated , monitor CXR. (5) SCARLET (acute kidney injury) Assessment & Plan: still on HD , has mild improvement in her urine output, nephrology is following, monitor UOP (6) DKA (diabetic ketoacidoses) Assessment & Plan: due to poorly controlled diabetes and sepsis, S/P insulin drip in the ICU , continue close monitor of her blood glucose to keep between 80 -120 (7) Leg wound, left Assessment & Plan: with infection due to staph aureus and klebsiella oxytoca, improved S/P meropenem and zyvox for more than two weeks , continue local wound care as per hospital protocol , bone scan ruled out underlying osteomyelitis also her X ray . (8) Forearm swelling Assessment & Plan: with redness and erythema, infiltration due to IV line, VS phlebitis, doubt an abscess since she is on wide spectrum covergae of antibiotics . venous doppler was negative for DVT as per preliminary report , continue heat pads and wide spectrum antibiotics Subjective Constitutional: Reports: fatigue HEENT: Reports: no symptoms Respiratory: Reports: no symptoms Breasts: Reports: no symptoms Cardiovascular: Reports: no symptoms Gastrointestinal/Abdominal: Reports: other - left lower abdomen blisters with skin wounds Genitourinary: Reports: no symptoms Neurologic: Reports: weakness Psychiatric: Reports: no symptoms Skin: Reports: ulcer, other - red with blisters on the left lower abdomen folds , and superficial wounds Endocrine: Reports: no symptoms Hematologic: Reports: no symptoms Musculoskeletal: Reports: no symptoms Allergies: Coded Allergies: LATEX (Verified Allergy, Unknown, skin rash, 08/12/17) PENICILLINS (Verified Allergy, Unknown, 07/30/17) According to mother, the patient is allergic to Penicillins Subjective she was awake and alert, had dry cough, with less left forearm redness and swelling . no fever , no chills today. has less lymphedema in her lower abdomen skin and less redness. small skin breaks drying out at the folds site with redness . Objective Vital Signs Last 24 Hour Vital Signs Date Time Temp Pulse Resp B/P (MAP) Pulse Ox O2 Delivery O2 Flow Rate FiO2 08/21/17 12:00 97.0 91 21 141/83 97 Nasal Cannula 2.0 97.0 08/21/17 08:38 95 135/86 08/21/17 08:38 95 135/86 08/21/17 08:00 99.5 95 20 135/86 94 Nasal Cannula 2.0 99.5 08/21/17 04:00 98.7 92 20 134/75 95 98.7 08/21/17 00:00 99.4 91 20 131/73 94 99.4 08/20/17 20:20 96 152/86 08/20/17 20:00 99.2 96 20 152/86 96 99.2 08/20/17 16:00 99.0 94 20 139/79 97 99.0 Height (Feet): 5 Height (Inches): 5.00 Weight (Pounds): 315 General Appearance: WD/WN, no acute distress HEENT: normocephalic, atraumatic, anicteric, mucous membranes moist, PERRL Respiratory/Chest: chest wall non-tender, lungs clear, normal breath sounds, no respiratory distress, no accessory muscle use Cardiovascular: normal peripheral pulses, normal rate, regular rhythm, no gallop/murmur, no JVD Abdomen: normal bowel sounds, soft, non tender, no organomegaly, non distended , no mass, no scars Extremities: no cyanosis, no clubbing, other Skin: no rash, no lesions, ulcers, other - left latral ankle wound with exudate , Neurologic/Psychiatric: alert, oriented x 3, responsive Lymphatic: no neck adenopathy, no groin adenopathy Current Medications Medications (Trade) Dose Ordered Sig/Tommy Route PRN Reason Start Time Stop Time Status Last Admin Dose Admin Acetaminophen (Tylenol) 650 mg Q4H PRN NG Mild Pain/Temp > 100.5 08/17/17 15:30 09/07/17 15:29 Acetaminophen (Tylenol) 650 mg Q6H PRN RECTAL for fever 08/17/17 15:30 09/14/17 15:29 Amlodipine Besylate (Norvasc) 10 mg DAILY ORAL 08/18/17 09:00 09/17/17 08:59 08/21/17 08:38 Carvedilol (Coreg) 6.25 mg EVERY 12 HOURS ORAL 08/20/17 10:00 09/19/17 09:59 08/21/17 08:38 Chlorhexidine Gluconate (Idalia-Hex 2%) 1 applic DAILY@2000 TOPIC 08/17/17 20:00 09/08/17 19:59 08/20/17 20:20 Clonidine HCl (Catapres Tab) 0.1 mg Q4H PRN ORAL SBP > 160 mmHg 08/17/17 15:52 09/16/17 15:51 Clotrimazole (Lotrimin) 1 applic BID TOPIC 08/17/17 18:00 09/15/17 17:59 08/19/17 09:39 Dextrose (Dextrose 50%) 25 ml STAT PRN IV Hypoglycemia 08/17/17 15:30 09/14/17 15:29 Dextrose (Dextrose 50%) 50 ml STAT PRN IV Hypoglycemia 08/17/17 15:30 09/14/17 15:29 Heparin Sodium (Porcine) (Heparin 5000 units/ml) 5,000 units Q8HR SUBQ 08/17/17 15:30 09/16/17 15:29 08/21/17 06:04 Insulin Aspart (NovoLOG) BEFORE MEALS AND HS SUBQ 08/17/17 16:30 09/11/17 11:29 08/21/17 11:59 Insulin Detemir (Levemir) 6 units Q12HR SUBQ 08/17/17 21:00 09/06/17 08:59 08/21/17 09:58 Nateglinide (Starlix) 60 mg TIAC ORAL 08/17/17 16:30 09/16/17 06:29 08/21/17 11:59 Nystatin (Nystop Powder) 1 applic THREE TIMES A DAY TOPIC 08/17/17 18:00 09/15/17 13:59 08/21/17 12:02 Pantoprazole (Protonix) 40 mg ACBREAKFAST ORAL 08/18/17 06:30 09/17/17 06:29 08/21/17 06:02 Promethazine HCl/ Dextromethorphan (Phenergan DM) 6.25 mg Q6H PRN ORAL For Cough 08/19/17 14:00 09/18/17 13:59 08/19/17 14:37 Silver Sulfadiazine (Silvadene Cream 25gm) 1 applic DAILY TOPIC 08/18/17 09:00 08/31/17 10:29 08/19/17 09:38 Johanny Colbert M.D. August 21, 2017 13:23
[2017-08-21] MEDS ORDERED: cefTRIAXone 2 GM in D5W 110 ML IVPB SCH (15:00)
[2017-08-21 15:46] LABS: HEMATOCRIT 22.3 % (37.0-47.0); HEMOGLOBIN 7.2 G/DL (12.0-16.0); MEAN CORPUSCULAR VOLUME 72 FL (80-99); PLATELET COUNT 239 K/UL (150-450); RED BLOOD COUNT 3.08 M/UL (4.20-5.40); RED CELL DISTRIBUTION WIDTH 18.4 % (11.6-14.8); WHITE BLOOD COUNT 5.8 K/UL (4.8-10.8)
[2017-08-21 16:00] LABS: ANION GAP 9 mmol/L (5-15); BLOOD UREA NITROGEN 16 mg/dL (7-18); CARBON DIOXIDE 23 MMOL/L (21-32); CHLORIDE 105 MMOL/L (98-107); CREATININE 1.5 MG/DL (0.55-1.30); POTASSIUM 4.4 MMOL/L (3.5-5.1); SODIUM 137 MMOL/L (136-145)
[2017-08-21] MEDS: Doxycycline Hyclate 100 MG in D5W 110 ML IVPB SCH (20:14)
[2017-08-21] MEDS: Dyna-Hex 2% Top Sol 2oz TOPIC SCH (20:19)
[2017-08-21] MEDS ORDERED: Cathflo Alteplase 2mg Inj INJ SCH (21:00)
[2017-08-22] VITALS: BP 138/69
[2017-08-22 04:00] VITALS: BP 158/81
[2017-08-22] MEDS ORDERED: Cathflo Alteplase 2mg Inj INJ SCH (06:25)
[2017-08-22] MEDS: Nateglinide 60mg tab ORAL SCH ×3 (06:27→17:31)
[2017-08-22] MEDS: NovoLOG Insulin Flexpen SUBQ SCH ×4 (06:29→22:34)
[2017-08-22] MEDS: Heparin 5000 units/ml inj SUBQ SCH ×3 (06:30→22:32)
[2017-08-22 07:32] LABS: BASOPHILS % (AUTO) 1.1 % (0.0-2.0); EOSINOPHILS % (AUTO) 4.3 % (0.0-3.0); HEMATOCRIT 29.3 % (37.0-47.0); HEMOGLOBIN 9.4 G/DL (12.0-16.0); LYMPHOCYTES % (AUTO) 22.7 % (20.0-45.0); MEAN CORPUSCULAR VOLUME 76 FL (80-99); MONOCYTES % (AUTO) 8.5 % (1.0-10.0); NEUTROPHILS % (AUTO) 63.4 % (45.0-75.0); PLATELET COUNT 229 K/UL (150-450); RED BLOOD COUNT 3.84 M/UL (4.20-5.40); RED CELL DISTRIBUTION WIDTH 18.6 % (11.6-14.8); WHITE BLOOD COUNT 6.4 K/UL (4.8-10.8)
--- NOTE | 2017-08-22 07:40 | General Progress Note ---
Assessment/Plan Problem List: (1) Cellulitis of abdominal wall ICD Codes: L03.311 - Cellulitis of abdominal wall SNOMED: 09034907 (2) Acute respiratory failure ICD Codes: J96.00 - Acute respiratory failure, unspecified whether with hypoxia or hypercapnia SNOMED: 43089068 (3) New onset type 1 diabetes mellitus, uncontrolled ICD Codes: E10.65 - Type 1 diabetes mellitus with hyperglycemia SNOMED: 447961330 (4) Necrotizing fasciitis ICD Codes: M72.6 - Necrotizing fasciitis SNOMED: 08547383 (5) DKA (diabetic ketoacidoses) ICD Codes: E13.10 - Other specified diabetes mellitus with ketoacidosis without coma SNOMED: 23988486, 158860389 Assessment/Plan continue Levemir 6 units bid increase Starlix to 120 mg ac tid continue NISS ac / hs Subjective Allergies: Coded Allergies: LATEX (Verified Allergy, Unknown, skin rash, 08/12/17) PENICILLINS (Verified Allergy, Unknown, 07/30/17) According to mother, the patient is allergic to Penicillins All Systems: reviewed and negative except above Subjective events noted Objective Last 24 Hour Vital Signs Date Time Temp Pulse Resp B/P (MAP) Pulse Ox O2 Delivery O2 Flow Rate FiO2 08/22/17 04:00 99.2 87 19 158/81 92 99.2 08/22/17 00:00 99.4 87 19 138/69 93 99.4 08/21/17 20:15 94 152/90 08/21/17 20:00 99.3 94 19 152/90 96 99.3 08/21/17 19:54 96 Nasal Cannula 4.0 36 08/21/17 19:54 Nasal Cannula 4.0 36 08/21/17 18:19 139/78 08/21/17 16:06 97.1 93 22 159/84 97 Nasal Cannula 2.0 97.1 08/21/17 12:00 97.0 91 21 141/83 97 Nasal Cannula 2.0 97.0 08/21/17 08:38 95 135/86 08/21/17 08:38 95 135/86 08/21/17 08:00 99.5 95 20 135/86 94 Nasal Cannula 2.0 99.5 Intake and Output 08/21/17 08/22/17 19:00 07:00 Intake Total 780 ml 500 ml Output Total 1700 ml Balance -920 ml 500 ml Intake Oral 780 ml Blood Product 500 ml Output Urine Total 1700 ml # Bowel Movements 2 Laboratory Tests 08/21/17 15:15: White Blood Count 5.8, Red Blood Count 3.08L, Hemoglobin 7.2L, Hematocrit 22.3L , Mean Corpuscular Volume 72L, Mean Corpuscular Hemoglobin 23.3L, Mean Corpuscular Hemoglobin Concent 32.1, Red Cell Distribution Width 18.4H, Platelet Count 239, Mean Platelet Volume 4.9L, Neutrophils (%) (Auto) , Lymphocytes (%) (Auto) , Monocytes (%) (Auto) , Eosinophils (%) (Auto) , Basophils (%) (Auto) , Differential Total Cells Counted 100, Neutrophils % ( Manual) 68, Lymphocytes % (Manual) 30, Monocytes % (Manual) 0L, Eosinophils % ( Manual) 1, Basophils % (Manual) 1, Band Neutrophils 0, Platelet Estimate Adequate, Platelet Morphology Normal, Anisocytosis 2+, Microcytosis 1+, Sodium Level 137, Potassium Level 4.4, Chloride Level 105, Carbon Dioxide Level 23, Anion Gap 9, Blood Urea Nitrogen 16, Creatinine 1.5H, Estimat Glomerular Filtration Rate 37.0, Glucose Level 119H, Calcium Level 8.0L 08/22/17 06:40: White Blood Count 6.4, Red Blood Count 3.84L, Hemoglobin 9.4#L, Hematocrit 29.3# L, Mean Corpuscular Volume 76L, Mean Corpuscular Hemoglobin 24.4L, Mean Corpuscular Hemoglobin Concent 32.0, Red Cell Distribution Width 18.6H, Platelet Count 229, Mean Platelet Volume 4.9L, Neutrophils (%) (Auto) 63.4, Lymphocytes (%) (Auto) 22.7, Monocytes (%) (Auto) 8.5, Eosinophils (%) (Auto) 4.3H, Basophils (%) (Auto) 1.1, Sodium Level [Pending], Potassium Level [Pending ], Chloride Level [Pending], Carbon Dioxide Level [Pending], Blood Urea Nitrogen [Pending], Creatinine [Pending], Estimat Glomerular Filtration Rate [ Pending], Glucose Level [Pending], Calcium Level [Pending], Hemoglobin A1c [ Pending] Height (Feet): 5 Height (Inches): 5.00 Weight (Pounds): 315 General Appearance: no apparent distress Neck: normal alignment Cardiovascular: normal rate Respiratory/Chest: lungs clear Abdomen: normal bowel sounds Pelvis: normal external exam Edema: no edema noted Arm (L), no edema noted Arm (R), no edema noted Leg (L), no edema noted Leg (R), no edema noted Pedal (L), no edema noted Pedal (R), no edema noted Generalized Objective Current Medications Medications (Trade) Dose Ordered Sig/Tommy Route PRN Reason Start Time Stop Time Status Last Admin Dose Admin Acetaminophen (Tylenol) 650 mg Q4H PRN NG Mild Pain/Temp > 100.5 08/17/17 15:30 09/07/17 15:29 Acetaminophen (Tylenol) 650 mg Q6H PRN RECTAL for fever 08/17/17 15:30 09/14/17 15:29 Alteplase, Recombinant (Cathflo) 4 mg ONCE INJ 08/22/17 06:25 08/22/17 08:00 08/22/17 06:28 Amlodipine Besylate (Norvasc) 10 mg DAILY ORAL 08/18/17 09:00 09/17/17 08:59 08/21/17 08:38 Carvedilol (Coreg) 6.25 mg EVERY 12 HOURS ORAL 08/20/17 10:00 09/19/17 09:59 08/21/17 20:15 Ceftriaxone Sodium 2 gm/ Dextrose 110 ml @ 220 mls/hr Q24H IVPB 08/21/17 15:00 08/28/17 14:59 08/21/17 13:59 Chlorhexidine Gluconate (Idalia-Hex 2%) 1 applic DAILY@2000 TOPIC 08/17/17 20:00 09/08/17 19:59 08/21/17 20:19 Clonidine HCl (Catapres Tab) 0.1 mg Q4H PRN ORAL SBP > 160 mmHg 08/17/17 15:52 09/16/17 15:51 Clotrimazole (Lotrimin) 1 applic BID TOPIC 08/17/17 18:00 09/15/17 17:59 08/19/17 09:39 Dextrose (Dextrose 50%) 25 ml STAT PRN IV Hypoglycemia 08/17/17 15:30 09/14/17 15:29 Dextrose (Dextrose 50%) 50 ml STAT PRN IV Hypoglycemia 08/17/17 15:30 09/14/17 15:29 Doxycycline Hyclate 100 mg/ Dextrose 110 ml @ 110 mls/hr Q12HR IVPB 08/21/17 21:00 08/28/17 20:59 08/21/17 20:14 Heparin Sodium (Porcine) (Heparin 5000 units/ml) 5,000 units Q8HR SUBQ 08/17/17 15:30 09/16/17 15:29 08/22/17 06:30 Insulin Aspart (NovoLOG) BEFORE MEALS AND HS SUBQ 08/17/17 16:30 09/11/17 11:29 08/22/17 06:29 Insulin Detemir (Levemir) 6 units Q12HR SUBQ 08/17/17 21:00 09/06/17 08:59 08/21/17 20:19 Nateglinide (Starlix) 60 mg TIAC ORAL 08/17/17 16:30 09/16/17 06:29 08/22/17 06:27 Nystatin (Nystop Powder) 1 applic THREE TIMES A DAY TOPIC 08/17/17 18:00 09/15/17 13:59 08/21/17 12:02 Pantoprazole (Protonix) 40 mg ACBREAKFAST ORAL 08/18/17 06:30 09/17/17 06:29 08/22/17 06:27 Promethazine HCl/ Dextromethorphan (Phenergan DM) 6.25 mg Q6H PRN ORAL For Cough 08/19/17 14:00 09/18/17 13:59 08/19/17 14:37 Silver Sulfadiazine (Silvadene Cream 25gm) 1 applic DAILY TOPIC 08/18/17 09:00 08/31/17 10:29 08/19/17 09:38 Item Value Date Time Bedside Blood Glucose 139 mg/dl H 08/22/17 0629 Bedside Blood Glucose 172 mg/dl H 08/21/17 2100 Bedside Blood Glucose 216 mg/dl H 08/21/17 1647 Bedside Blood Glucose 308 mg/dl H 08/21/17 1159 Bedside Blood Glucose 181 mg/dl H 08/21/17 0958 SAQIB TOM August 22, 2017 07:40
[2017-08-22 07:49] LABS: ANION GAP 9 mmol/L (5-15); BLOOD UREA NITROGEN 13 mg/dL (7-18); CALCIUM 8.3 MG/DL (8.5-10.1); CARBON DIOXIDE 24 MMOL/L (21-32); CHLORIDE 107 MMOL/L (98-107); CREATININE 1.3 MG/DL (0.55-1.30); POTASSIUM 4.2 MMOL/L (3.5-5.1); SODIUM 140 MMOL/L (136-145)
[2017-08-22 08:00] VITALS: BP 177/94
--- NOTE | 2017-08-22 08:22 | Nephrology Progress Note ---
Assessment/Plan Assessment/Plan 1. SCARLET- ATN resolving, Cr 1.3 - multifact ATN (sepsis induced inflammotory cytokine prox tub damage/ ishchemic ATN hypotension/vol dep) - DC home or Tue once cleared by consultants 2. DM- on insulin and oral hypoglycemics 3. Septic Shock- Abx mgmt per ID. - resolved 4. HTN- Norvasc and Coreg. Stable 5. Disposition- due to insurance status , patient does not qualify for HH or SNF. - DC home with self care/walker on Tuesday or Tue. 6. Hypok+/Ca/Phos- replace prn 7. Anemia- s/p bld tx Subjective Date patient seen: August 22, 2017 Time patient seen: 08:20 ROS Limited/Unobtainable: No Allergies: Coded Allergies: LATEX (Verified Allergy, Unknown, skin rash, 08/12/17) PENICILLINS (Verified Allergy, Unknown, 07/30/17) According to mother, the patient is allergic to Penicillins All Systems: reviewed and negative except above Subjective Patient back to baseline. DC or Tue Objective Last 24 Hour Vital Signs Date Time Temp Pulse Resp B/P (MAP) Pulse Ox O2 Delivery O2 Flow Rate FiO2 08/22/17 04:00 99.2 87 19 158/81 92 99.2 08/22/17 00:00 99.4 87 19 138/69 93 99.4 08/21/17 20:15 94 152/90 08/21/17 20:00 99.3 94 19 152/90 96 99.3 08/21/17 19:54 96 Nasal Cannula 4.0 36 08/21/17 19:54 Nasal Cannula 4.0 36 08/21/17 18:19 139/78 08/21/17 16:06 97.1 93 22 159/84 97 Nasal Cannula 2.0 97.1 08/21/17 12:00 97.0 91 21 141/83 97 Nasal Cannula 2.0 97.0 08/21/17 08:38 95 135/86 08/21/17 08:38 95 135/86 Intake and Output 08/21/17 08/22/17 19:00 07:00 Intake Total 780 ml 500 ml Output Total 1700 ml Balance -920 ml 500 ml Intake Oral 780 ml Blood Product 500 ml Output Urine Total 1700 ml # Bowel Movements 2 Laboratory Tests 08/21/17 15:15: White Blood Count 5.8, Red Blood Count 3.08L, Hemoglobin 7.2L, Hematocrit 22.3L , Mean Corpuscular Volume 72L, Mean Corpuscular Hemoglobin 23.3L, Mean Corpuscular Hemoglobin Concent 32.1, Red Cell Distribution Width 18.4H, Platelet Count 239, Mean Platelet Volume 4.9L, Neutrophils (%) (Auto) , Lymphocytes (%) (Auto) , Monocytes (%) (Auto) , Eosinophils (%) (Auto) , Basophils (%) (Auto) , Differential Total Cells Counted 100, Neutrophils % ( Manual) 68, Lymphocytes % (Manual) 30, Monocytes % (Manual) 0L, Eosinophils % ( Manual) 1, Basophils % (Manual) 1, Band Neutrophils 0, Platelet Estimate Adequate, Platelet Morphology Normal, Anisocytosis 2+, Microcytosis 1+, Sodium Level 137, Potassium Level 4.4, Chloride Level 105, Carbon Dioxide Level 23, Anion Gap 9, Blood Urea Nitrogen 16, Creatinine 1.5H, Estimat Glomerular Filtration Rate 37.0, Glucose Level 119H, Calcium Level 8.0L 08/22/17 06:40: White Blood Count 6.4, Red Blood Count 3.84L, Hemoglobin 9.4#L, Hematocrit 29.3# L, Mean Corpuscular Volume 76L, Mean Corpuscular Hemoglobin 24.4L, Mean Corpuscular Hemoglobin Concent 32.0, Red Cell Distribution Width 18.6H, Platelet Count 229, Mean Platelet Volume 4.9L, Neutrophils (%) (Auto) 63.4, Lymphocytes (%) (Auto) 22.7, Monocytes (%) (Auto) 8.5, Eosinophils (%) (Auto) 4.3H, Basophils (%) (Auto) 1.1, Sodium Level 140, Potassium Level 4.2, Chloride Level 107, Carbon Dioxide Level 24, Anion Gap 9, Blood Urea Nitrogen 13, Creatinine 1.3, Estimat Glomerular Filtration Rate 43.7, Glucose Level 146H, Calcium Level 8.3L, Hemoglobin A1c 8.6H Height (Feet): 5 Height (Inches): 5.00 Weight (Pounds): 315 General Appearance: WD/WN, no apparent distress EENT: normal ENT inspection, TMs normal Neck: normal alignment, supple Cardiovascular: normal rate, regular rhythm Respiratory/Chest: lungs clear, normal breath sounds Abdomen: non tender, soft Edema: 1+ Arm (L), 1+ Arm (R), 1+ Leg (L), 1+ Leg (R), 1+ Pedal (L), 1+ Pedal ( R), 1+ Generalized Carlton Guzmán M.D. August 22, 2017 08:22
--- NOTE | 2017-08-22 08:26 | Pulmonology Progress Note ---
Assessment/Plan Assessment/Plan respiratory failure s/p extubation and now with reintubation DKA sepsis abd wall cellulitis fluid overload effusions and edema anemia PLAN respiratory as is monitor for change no new recommendations Subjective Allergies: Coded Allergies: LATEX (Verified Allergy, Unknown, skin rash, 08/12/17) PENICILLINS (Verified Allergy, Unknown, 07/30/17) According to mother, the patient is allergic to Penicillins Subjective off vent- stable d/w RN remains stable and alert Objective Last 24 Hour Vital Signs Date Time Temp Pulse Resp B/P (MAP) Pulse Ox O2 Delivery O2 Flow Rate FiO2 08/22/17 04:00 99.2 87 19 158/81 92 99.2 08/22/17 00:00 99.4 87 19 138/69 93 99.4 08/21/17 20:15 94 152/90 08/21/17 20:00 99.3 94 19 152/90 96 99.3 08/21/17 19:54 96 Nasal Cannula 4.0 36 08/21/17 19:54 Nasal Cannula 4.0 36 08/21/17 18:19 139/78 08/21/17 16:06 97.1 93 22 159/84 97 Nasal Cannula 2.0 97.1 08/21/17 12:00 97.0 91 21 141/83 97 Nasal Cannula 2.0 97.0 08/21/17 08:38 95 135/86 08/21/17 08:38 95 135/86 Intake and Output 08/21/17 08/22/17 19:00 07:00 Intake Total 780 ml 500 ml Output Total 1700 ml Balance -920 ml 500 ml Intake Oral 780 ml Blood Product 500 ml Output Urine Total 1700 ml # Bowel Movements 2 Objective WDWN off vent and seems stable NAD reduced breath sounds bilaterally without rhonchi or wheeze [id number] without MRG NABS nontender no HSM no CC edema nonfocal Laboratory Tests 08/21/17 15:15: White Blood Count 5.8, Red Blood Count 3.08L, Hemoglobin 7.2L, Hematocrit 22.3L , Mean Corpuscular Volume 72L, Mean Corpuscular Hemoglobin 23.3L, Mean Corpuscular Hemoglobin Concent 32.1, Red Cell Distribution Width 18.4H, Platelet Count 239, Mean Platelet Volume 4.9L, Neutrophils (%) (Auto) , Lymphocytes (%) (Auto) , Monocytes (%) (Auto) , Eosinophils (%) (Auto) , Basophils (%) (Auto) , Differential Total Cells Counted 100, Neutrophils % ( Manual) 68, Lymphocytes % (Manual) 30, Monocytes % (Manual) 0L, Eosinophils % ( Manual) 1, Basophils % (Manual) 1, Band Neutrophils 0, Platelet Estimate Adequate, Platelet Morphology Normal, Anisocytosis 2+, Microcytosis 1+, Sodium Level 137, Potassium Level 4.4, Chloride Level 105, Carbon Dioxide Level 23, Anion Gap 9, Blood Urea Nitrogen 16, Creatinine 1.5H, Estimat Glomerular Filtration Rate 37.0, Glucose Level 119H, Calcium Level 8.0L 08/22/17 06:40: White Blood Count 6.4, Red Blood Count 3.84L, Hemoglobin 9.4#L, Hematocrit 29.3# L, Mean Corpuscular Volume 76L, Mean Corpuscular Hemoglobin 24.4L, Mean Corpuscular Hemoglobin Concent 32.0, Red Cell Distribution Width 18.6H, Platelet Count 229, Mean Platelet Volume 4.9L, Neutrophils (%) (Auto) 63.4, Lymphocytes (%) (Auto) 22.7, Monocytes (%) (Auto) 8.5, Eosinophils (%) (Auto) 4.3H, Basophils (%) (Auto) 1.1, Sodium Level 140, Potassium Level 4.2, Chloride Level 107, Carbon Dioxide Level 24, Anion Gap 9, Blood Urea Nitrogen 13, Creatinine 1.3, Estimat Glomerular Filtration Rate 43.7, Glucose Level 146H, Calcium Level 8.3L, Hemoglobin A1c 8.6H Current Medications Medications (Trade) Dose Ordered Sig/Tommy Route PRN Reason Start Time Stop Time Status Last Admin Dose Admin Acetaminophen (Tylenol) 650 mg Q4H PRN NG Mild Pain/Temp > 100.5 08/17/17 15:30 09/07/17 15:29 Acetaminophen (Tylenol) 650 mg Q6H PRN RECTAL for fever 08/17/17 15:30 09/14/17 15:29 Amlodipine Besylate (Norvasc) 10 mg DAILY ORAL 08/18/17 09:00 09/17/17 08:59 08/21/17 08:38 Carvedilol (Coreg) 6.25 mg EVERY 12 HOURS ORAL 08/20/17 10:00 09/19/17 09:59 08/21/17 20:15 Ceftriaxone Sodium 2 gm/ Dextrose 110 ml @ 220 mls/hr Q24H IVPB 08/21/17 15:00 08/28/17 14:59 08/21/17 13:59 Chlorhexidine Gluconate (Idalia-Hex 2%) 1 applic DAILY@2000 TOPIC 08/17/17 20:00 09/08/17 19:59 08/21/17 20:19 Clonidine HCl (Catapres Tab) 0.1 mg Q4H PRN ORAL SBP > 160 mmHg 08/17/17 15:52 09/16/17 15:51 Clotrimazole (Lotrimin) 1 applic BID TOPIC 08/17/17 18:00 09/15/17 17:59 08/19/17 09:39 Dextrose (Dextrose 50%) 25 ml STAT PRN IV Hypoglycemia 08/17/17 15:30 09/14/17 15:29 Dextrose (Dextrose 50%) 50 ml STAT PRN IV Hypoglycemia 08/17/17 15:30 09/14/17 15:29 Doxycycline Hyclate 100 mg/ Dextrose 110 ml @ 110 mls/hr Q12HR IVPB 08/21/17 21:00 08/28/17 20:59 08/21/17 20:14 Heparin Sodium (Porcine) (Heparin 5000 units/ml) 5,000 units Q8HR SUBQ 08/17/17 15:30 09/16/17 15:29 08/22/17 06:30 Insulin Aspart (NovoLOG) BEFORE MEALS AND HS SUBQ 08/17/17 16:30 09/11/17 11:29 08/22/17 06:29 Insulin Detemir (Levemir) 6 units Q12HR SUBQ 08/17/17 21:00 09/06/17 08:59 08/21/17 20:19 Nateglinide (Starlix) 120 mg TIAC ORAL 08/22/17 11:30 09/16/17 06:29 Nystatin (Nystop Powder) 1 applic THREE TIMES A DAY TOPIC 08/17/17 18:00 09/15/17 13:59 08/21/17 12:02 Pantoprazole (Protonix) 40 mg ACBREAKFAST ORAL 08/18/17 06:30 09/17/17 06:29 08/22/17 06:27 Promethazine HCl/ Dextromethorphan (Phenergan DM) 6.25 mg Q6H PRN ORAL For Cough 08/19/17 14:00 09/18/17 13:59 08/19/17 14:37 Silver Sulfadiazine (Silvadene Cream 25gm) 1 applic DAILY TOPIC 08/18/17 09:00 08/31/17 10:29 08/19/17 09:38 Stew Hopson MD August 22, 2017 08:26
[2017-08-22] MEDS: Doxycycline Hyclate 100 MG in D5W 110 ML IVPB SCH (08:43)
[2017-08-22] MEDS: Carvedilol 6.25mg Tab ORAL SCH ×2 (08:44→22:30)
[2017-08-22] MEDS: Levemir Flexpen SUBQ SCH ×2 (08:45→22:33)
[2017-08-22] MEDS: Nystatin Powder 100,000 units/gm 15gm TOPIC SCH ×3 (08:46→17:38)
--- NOTE | 2017-08-22 10:45 | Geriatric Medicine Prog Note ---
DATE: 08/21/2017 SUBJECTIVE: The patient has improved diabetic control, feeling much better. OBJECTIVE: VITAL SIGNS: Blood pressure 130/69, pulse 77, respirations 19. RESPIRATORY: Clear. CARDIOVASCULAR: Regular. LABORATORY DATA: Glucose 172. BUN 16, creatinine 1.5, hemoglobin 7.2, receiving transfusion. ASSESSMENT: 1. Diabetes mellitus type 2 with renal manifestations. 2. Anemia, etiology unclear. Significantly improved. PLAN: Continue q.12 h. and sliding scale NovoLog q.i.d. before meals and at bedtime. Héctor Sibley M.D. DR: MAXWELL JOB#: [id number] CC:
[2017-08-22 12:00] VITALS: BP 155/91
--- NOTE | 2017-08-22 13:10 | Cardiac Electrophysiology PN ---
Assessment/Plan Assessment/Plan 1. S/P Septic shock due to diabetic ketoacidosis. On broad-spectrum IV antibiotic. Echocardiogram showed EF 60%. Rule out for TN 2. Diabetic ketoacidosis, on IV fluids and insulin. 3. S/P Cardiac arrest needing atropine. Due to respiratory failure 4. White count of 36,000, abdominal cellulitis. IV antibiotic per Dr. Colbert. 5. Morbid obesity. 6. S/P Respiratory failure 7. ARF. Resolved and dialysis catheter removed 8. Anemia hb 6.9. Transfused 2 units. Now around 8 9. Severe hyponatremia Resolved DW RN Subjective Subjective Alert in NAD. Placement pending. Objective Last 24 Hour Vital Signs Date Time Temp Pulse Resp B/P (MAP) Pulse Ox O2 Delivery O2 Flow Rate FiO2 08/22/17 08:44 93 177/94 08/22/17 08:43 93 177/94 08/22/17 08:00 97.7 93 20 177/94 98 Nasal Cannula 2.0 97.7 08/22/17 07:49 Nasal Cannula 4.0 36 08/22/17 07:49 95 Nasal Cannula 4.0 36 08/22/17 04:00 99.2 87 19 158/81 92 99.2 08/22/17 00:00 99.4 87 19 138/69 93 99.4 08/21/17 20:15 94 152/90 08/21/17 20:00 99.3 94 19 152/90 96 99.3 08/21/17 19:54 96 Nasal Cannula 4.0 36 08/21/17 19:54 Nasal Cannula 4.0 36 08/21/17 18:19 139/78 08/21/17 16:06 97.1 93 22 159/84 97 Nasal Cannula 2.0 97.1 Intake and Output 08/21/17 08/22/17 19:00 07:00 Intake Total 780 ml 500 ml Output Total 1700 ml Balance -920 ml 500 ml Intake Oral 780 ml Blood Product 500 ml Output Urine Total 1700 ml # Bowel Movements 2 Laboratory Tests Test 08/21/17 15:15 08/22/17 06:40 White Blood Count 5.8 K/UL (4.8-10.8) 6.4 K/UL (4.8-10.8) Red Blood Count 3.08 M/UL (4.20-5.40) L 3.84 M/UL (4.20-5.40) L Hemoglobin 7.2 G/DL (12.0-16.0) L 9.4 G/DL (12.0-16.0) #L Hematocrit 22.3 % (37.0-47.0) L 29.3 % (37.0-47.0) #L Mean Corpuscular Volume 72 FL (80-99) L 76 FL (80-99) L Mean Corpuscular Hemoglobin 23.3 PG (27.0-31.0) L 24.4 PG (27.0-31.0) L Mean Corpuscular Hemoglobin Concent 32.1 G/DL (32.0-36.0) 32.0 G/DL (32.0-36.0) Red Cell Distribution Width 18.4 % (11.6-14.8) H 18.6 % (11.6-14.8) H Platelet Count 239 K/UL (150-450) 229 K/UL (150-450) Mean Platelet Volume 4.9 FL (6.5-10.1) L 4.9 FL (6.5-10.1) L Neutrophils (%) (Auto) % (45.0-75.0) 63.4 % (45.0-75.0) Lymphocytes (%) (Auto) % (20.0-45.0) 22.7 % (20.0-45.0) Monocytes (%) (Auto) % (1.0-10.0) 8.5 % (1.0-10.0) Eosinophils (%) (Auto) % (0.0-3.0) 4.3 % (0.0-3.0) H Basophils (%) (Auto) % (0.0-2.0) 1.1 % (0.0-2.0) Differential Total Cells Counted 100 Neutrophils % (Manual) 68 % (45-75) Lymphocytes % (Manual) 30 % (20-45) Monocytes % (Manual) 0 % (1-10) L Eosinophils % (Manual) 1 % (0-3) Basophils % (Manual) 1 % (0-2) Band Neutrophils 0 % (0-8) Platelet Estimate Adequate Platelet Morphology Normal Anisocytosis 2+ Microcytosis 1+ Sodium Level 137 MMOL/L (136-145) 140 MMOL/L (136-145) Potassium Level 4.4 MMOL/L (3.5-5.1) 4.2 MMOL/L (3.5-5.1) Chloride Level 105 MMOL/L (98-107) 107 MMOL/L (98-107) Carbon Dioxide Level 23 MMOL/L (21-32) 24 MMOL/L (21-32) Anion Gap 9 mmol/L (5-15) 9 mmol/L (5-15) Blood Urea Nitrogen 16 mg/dL (7-18) 13 mg/dL (7-18) Creatinine 1.5 MG/DL (0.55-1.30) H 1.3 MG/DL (0.55-1.30) Estimat Glomerular Filtration Rate 37.0 mL/min (>60) 43.7 mL/min (>60) Glucose Level 119 MG/DL (74-106) H 146 MG/DL (74-106) H Calcium Level 8.0 MG/DL (8.5-10.1) L 8.3 MG/DL (8.5-10.1) L Hemoglobin A1c 8.6 % (4.3-6.0) H Microbiology Date/Time Source Procedure Growth Status 08/21/17 13:50 Abdomen Gram Stain - Final Resulted 08/21/17 13:50 Wound Culture - Preliminary Gram Negative Bacillus 1 Resulted Objective HEAD AND NECK: No JVD, LUNGS: Coarse rhonchi. CARDIOVASCULAR: Regular S1 and S2 with no gallop. ABDOMEN: Morbidly obese. EXTREMITIES: 1+ pitting edema. Adama Trujillo MD August 22, 2017 13:10
[2017-08-22] MEDS ORDERED: cefTRIAXone 2 GM in NS 110 ML IVPB SCH (15:00)
[2017-08-22 16:00] VITALS: BP 141/70
[2017-08-22] MEDS: Dyna-Hex 2% Top Sol 2oz TOPIC SCH (20:00)
[2017-08-22 20:49] VITALS: BP 173/90
[2017-08-22] MEDS: Doxycycline Hyclate 100 MG in NS 110 ML IV SCH (22:31)
[2017-08-23 00:32] VITALS: BP 146/85
[2017-08-23 04:17] VITALS: BP 148/84
[2017-08-23] MEDS: Nateglinide 60mg tab ORAL SCH ×3 (06:06→17:31)
[2017-08-23] MEDS: NovoLOG Insulin Flexpen SUBQ SCH ×4 (06:14→21:50)
[2017-08-23] MEDS: Heparin 5000 units/ml inj SUBQ SCH ×3 (06:15→21:47)
--- NOTE | 2017-08-23 07:36 | General Progress Note ---
Assessment/Plan Problem List: (1) Cellulitis of abdominal wall ICD Codes: L03.311 - Cellulitis of abdominal wall SNOMED: 57451805 (2) Acute respiratory failure ICD Codes: J96.00 - Acute respiratory failure, unspecified whether with hypoxia or hypercapnia SNOMED: 55366036 (3) New onset type 1 diabetes mellitus, uncontrolled ICD Codes: E10.65 - Type 1 diabetes mellitus with hyperglycemia SNOMED: 718519109 (4) Necrotizing fasciitis ICD Codes: M72.6 - Necrotizing fasciitis SNOMED: 91597908 (5) DKA (diabetic ketoacidoses) ICD Codes: E13.10 - Other specified diabetes mellitus with ketoacidosis without coma SNOMED: 89648357, [id number] Assessment/Plan continue Levemir 6 units bid continue Starlix 120 mg ac tid continue NISS ac / hs Subjective Allergies: Coded Allergies: LATEX (Verified Allergy, Unknown, skin rash, 08/12/17) PENICILLINS (Verified Allergy, Unknown, 07/30/17) According to mother, the patient is allergic to Penicillins All Systems: reviewed and negative except above Subjective events noted Objective Last 24 Hour Vital Signs Date Time Temp Pulse Resp B/P (MAP) Pulse Ox O2 Delivery O2 Flow Rate FiO2 08/23/17 04:17 98.9 94 19 148/84 93 98.9 08/23/17 04:00 Nasal Cannula 2.0 08/23/17 00:32 99.1 92 20 146/85 94 99.1 08/23/17 00:00 Nasal Cannula 2.0 08/22/17 22:30 97 173/90 08/22/17 20:49 98.7 97 19 173/90 92 98.7 08/22/17 20:00 Nasal Cannula 2.0 08/22/17 16:00 97.7 89 20 141/70 95 Nasal Cannula 2.0 97.7 08/22/17 12:00 97.7 88 20 155/91 95 Nasal Cannula 2.0 97.7 08/22/17 08:44 93 177/94 08/22/17 08:43 93 177/94 08/22/17 08:00 97.7 93 20 177/94 98 Nasal Cannula 2.0 97.7 08/22/17 07:49 Nasal Cannula 4.0 36 08/22/17 07:49 95 Nasal Cannula 4.0 36 Intake and Output 08/22/17 08/23/17 19:00 07:00 Intake Total 370 ml 970 ml Output Total 1000 ml 3400 ml Balance -630 ml -2430 ml Intake Oral 260 ml 860 ml IV Total 110 ml 110 ml Output Urine Total 1000 ml 3400 ml # Voids 5 # Bowel Movements 3 Height (Feet): 5 Height (Inches): 5.00 Weight (Pounds): 308 General Appearance: no apparent distress Neck: normal alignment Cardiovascular: normal rate Respiratory/Chest: lungs clear Abdomen: normal bowel sounds Pelvis: normal external exam Objective Current Medications Medications (Trade) Dose Ordered Sig/Tommy Route PRN Reason Start Time Stop Time Status Last Admin Dose Admin Acetaminophen (Tylenol) 650 mg Q4H PRN NG Mild Pain/Temp > 100.5 08/17/17 15:30 09/07/17 15:29 Acetaminophen (Tylenol) 650 mg Q6H PRN RECTAL for fever 08/17/17 15:30 09/14/17 15:29 Amlodipine Besylate (Norvasc) 10 mg DAILY ORAL 08/18/17 09:00 09/17/17 08:59 08/22/17 08:43 Carvedilol (Coreg) 6.25 mg EVERY 12 HOURS ORAL 08/20/17 10:00 09/19/17 09:59 08/22/17 22:30 Ceftriaxone Sodium 2 gm/ Sodium Chloride 110 ml @ 220 mls/hr Q24H IVPB 08/22/17 15:00 08/29/17 14:59 08/22/17 14:09 Chlorhexidine Gluconate (Idalia-Hex 2%) 1 applic DAILY@1999 TOPIC 08/17/17 20:00 09/08/17 19:59 08/21/17 20:19 Clonidine HCl (Catapres Tab) 0.1 mg Q4H PRN ORAL SBP > 160 mmHg 08/17/17 15:52 09/16/17 15:51 Clotrimazole (Lotrimin) 1 applic BID TOPIC 08/17/17 18:00 09/15/17 17:59 08/19/17 09:39 Dextrose (Dextrose 50%) 25 ml STAT PRN IV Hypoglycemia 08/17/17 15:30 09/14/17 15:29 Dextrose (Dextrose 50%) 50 ml STAT PRN IV Hypoglycemia 08/17/17 15:30 09/14/17 15:29 Doxycycline Hyclate 100 mg/ Sodium Chloride 110 ml @ 110 mls/hr Q12HR IV 08/22/17 21:00 08/29/17 20:59 08/22/17 22:31 Heparin Sodium (Porcine) (Heparin 5000 units/ml) 5,000 units Q8HR SUBQ 08/17/17 15:30 09/16/17 15:29 08/23/17 06:15 Insulin Aspart (NovoLOG) BEFORE MEALS AND HS SUBQ 08/17/17 16:30 09/11/17 11:29 08/23/17 06:14 Insulin Detemir (Levemir) 6 units Q12HR SUBQ 08/17/17 21:00 09/06/17 08:59 08/22/17 22:33 Nateglinide (Starlix) 120 mg TIAC ORAL 08/22/17 11:30 09/16/17 06:29 08/23/17 06:06 Nystatin (Nystop Powder) 1 applic THREE TIMES A DAY TOPIC 08/17/17 18:00 09/15/17 13:59 08/22/17 08:46 Ondansetron HCl (Zofran) 4 mg Q6H PRN IVP Nausea & Vomiting 08/22/17 09:15 09/21/17 09:14 Pantoprazole (Protonix) 40 mg ACBREAKFAST ORAL 08/18/17 06:30 09/17/17 06:29 08/23/17 06:06 Promethazine HCl/ Dextromethorphan (Phenergan DM) 6.25 mg Q6H PRN ORAL For Cough 08/19/17 14:00 09/18/17 13:59 08/19/17 14:37 Silver Sulfadiazine (Silvadene Cream 25gm) 1 applic DAILY TOPIC 08/18/17 09:00 08/31/17 10:29 08/19/17 09:38 Item Value Date Time Bedside Blood Glucose 142 mg/dl H 08/23/17 0618 Bedside Blood Glucose 203 mg/dl H 08/22/17 2234 Bedside Blood Glucose 202 mg/dl H 08/22/17 1734 Bedside Blood Glucose 199 mg/dl H 08/22/17 1241 Bedside Blood Glucose 139 mg/dl H 08/22/17 0845 Bedside Blood Glucose 139 mg/dl H 08/22/17 0629 SAQIB TOM August 23, 2017 07:36
[2017-08-23 08:00] VITALS: BP 156/83
--- NOTE | 2017-08-23 08:37 | Nephrology Progress Note ---
Assessment/Plan Assessment/Plan 1. SCARLET- ATN resolving, Cr 1.3 - multifact ATN (sepsis induced inflammotory cytokine prox tub damage/ ishchemic ATN hypotension/vol dep) - DC home tomorrow if labs stable and all consultants clear 2. DM- on insulin and oral hypoglycemics. Rx being written 3. Septic Shock- Abx mgmt per ID. - resolved 4. HTN- Norvasc and Coreg. Stable 5. Disposition- due to insurance status , patient does not qualify for HH or SNF. - DC home with self care/walker Wed 6. Hypok+/Ca/Phos- replace prn. AM labs pending 7. Anemia- s/p bld tx. Hgb stable, am labs pending Subjective Date patient seen: August 23, 2017 Time patient seen: 08:34 ROS Limited/Unobtainable: No Allergies: Coded Allergies: LATEX (Verified Allergy, Unknown, skin rash, 08/12/17) PENICILLINS (Verified Allergy, Unknown, 07/30/17) According to mother, the patient is allergic to Penicillins All Systems: reviewed and negative except above Subjective Patient back to baseline. DC home tomorrow Objective Last 24 Hour Vital Signs Date Time Temp Pulse Resp B/P (MAP) Pulse Ox O2 Delivery O2 Flow Rate FiO2 08/23/17 04:17 98.9 94 19 148/84 93 98.9 08/23/17 04:00 Nasal Cannula 2.0 08/23/17 00:32 99.1 92 20 146/85 94 99.1 08/23/17 00:00 Nasal Cannula 2.0 08/22/17 22:30 97 173/90 08/22/17 20:49 98.7 97 19 173/90 92 98.7 08/22/17 20:00 Nasal Cannula 2.0 08/22/17 16:00 97.7 89 20 141/70 95 Nasal Cannula 2.0 97.7 08/22/17 12:00 97.7 88 20 155/91 95 Nasal Cannula 2.0 97.7 08/22/17 08:44 93 177/94 08/22/17 08:43 93 177/94 Intake and Output 08/22/17 08/23/17 19:00 07:00 Intake Total 370 ml 970 ml Output Total 1000 ml 3400 ml Balance -630 ml -2430 ml Intake Oral 260 ml 860 ml IV Total 110 ml 110 ml Output Urine Total 1000 ml 3400 ml # Voids 5 # Bowel Movements 3 Height (Feet): 5 Height (Inches): 5.00 Weight (Pounds): 308 General Appearance: no apparent distress, alert Neck: normal alignment, supple Cardiovascular: normal rate, regular rhythm Respiratory/Chest: lungs clear, normal breath sounds Abdomen: normal bowel sounds, non tender, soft Edema: 1+ Arm (L), 1+ Arm (R), 1+ Leg (L), 1+ Leg (R), 1+ Pedal (L), 1+ Pedal ( R), 1+ Generalized Carlton Guzmán M.D. August 23, 2017 08:36
[2017-08-23] MEDS: Nystatin Powder 100,000 units/gm 15gm TOPIC SCH ×3 (09:00→18:00)
[2017-08-23] MEDS: Carvedilol 6.25mg Tab ORAL SCH ×2 (09:23→21:39)
[2017-08-23] MEDS: Levemir Flexpen SUBQ SCH ×2 (09:25→21:57)
[2017-08-23] MEDS: Doxycycline Hyclate 100 MG in NS 110 ML IV SCH (10:19)
--- NOTE | 2017-08-23 10:35 | Cardiac Electrophysiology PN ---
Assessment/Plan Assessment/Plan 1. S/P Septic shock due to diabetic ketoacidosis. On broad-spectrum IV antibiotic. Echocardiogram showed EF 60%. Rule out for [place] 2. Diabetic ketoacidosis, on IV fluids and insulin. 3. S/P Cardiac arrest needing atropine. Due to respiratory failure 4. White count of 36,000, abdominal cellulitis. IV antibiotic per Dr. Colbert. Resolved WBC normal now 5. Morbid obesity. 6. S/P Respiratory failure 7. ARF. Resolved and dialysis catheter removed 8. Anemia hb 6.9. Transfused 2 units. 9. Severe hyponatremia Resolved DW RN DC planning in progress Subjective Subjective Alert in NAD. DC plan to home. Objective Last 24 Hour Vital Signs Date Time Temp Pulse Resp B/P (MAP) Pulse Ox O2 Delivery O2 Flow Rate FiO2 08/23/17 09:23 94 148/84 08/23/17 09:23 94 148/84 08/23/17 04:17 98.9 94 19 148/84 93 98.9 08/23/17 04:00 Nasal Cannula 2.0 08/23/17 00:32 99.1 92 20 146/85 94 99.1 08/23/17 00:00 Nasal Cannula 2.0 08/22/17 22:30 97 173/90 08/22/17 20:49 98.7 97 19 173/90 92 98.7 08/22/17 20:00 Nasal Cannula 2.0 08/22/17 16:00 97.7 89 20 141/70 95 Nasal Cannula 2.0 97.7 08/22/17 12:00 97.7 88 20 155/91 95 Nasal Cannula 2.0 97.7 Intake and Output 08/22/17 08/23/17 19:00 07:00 Intake Total 370 ml 970 ml Output Total 1000 ml 3400 ml Balance -630 ml -2430 ml Intake Oral 260 ml 860 ml IV Total 110 ml 110 ml Output Urine Total 1000 ml 3400 ml # Voids 5 # Bowel Movements 3 Microbiology Date/Time Source Procedure Growth Status 08/21/17 15:30 Blood Blood Culture - Preliminary NO GROWTH AFTER 24 HOURS Resulted 08/21/17 15:15 Blood Blood Culture - Preliminary NO GROWTH AFTER 24 HOURS Resulted 08/21/17 13:50 Abdomen Gram Stain - Final Resulted 08/21/17 13:50 Wound Culture - Preliminary Pseudomonas Aeruginosa Resulted Objective HEAD AND NECK: No JVD, LUNGS: Coarse rhonchi. CARDIOVASCULAR: Regular S1 and S2 with no gallop. ABDOMEN: Morbidly obese. EXTREMITIES: 1+ pitting edema. Adama Trujillo MD August 23, 2017 10:35
[2017-08-23 11:07] LABS: BASOPHILS % (AUTO) 1.1 % (0.0-2.0); EOSINOPHILS % (AUTO) 3.7 % (0.0-3.0); HEMATOCRIT 26.2 % (37.0-47.0); HEMOGLOBIN 8.4 G/DL (12.0-16.0); LYMPHOCYTES % (AUTO) 23.3 % (20.0-45.0); MEAN CORPUSCULAR VOLUME 76 FL (80-99); MONOCYTES % (AUTO) 8.1 % (1.0-10.0); NEUTROPHILS % (AUTO) 63.8 % (45.0-75.0); PLATELET COUNT 226 K/UL (150-450); RED BLOOD COUNT 3.44 M/UL (4.20-5.40); RED CELL DISTRIBUTION WIDTH 18.4 % (11.6-14.8)
[2017-08-23 11:35] LABS: ANION GAP 11 mmol/L (5-15); BLOOD UREA NITROGEN 15 mg/dL (7-18); CALCIUM 8.3 MG/DL (8.5-10.1); CARBON DIOXIDE 21 MMOL/L (21-32); CHLORIDE 105 MMOL/L (98-107); CREATININE 1.2 MG/DL (0.55-1.30); POTASSIUM 4.2 MMOL/L (3.5-5.1); SODIUM 137 MMOL/L (136-145)
[2017-08-23 12:00] VITALS: BP 148/85
--- NOTE | 2017-08-23 12:04 | Pulmonology Progress Note ---
Assessment/Plan Assessment/Plan respiratory failure s/p extubation and now with reintubation DKA sepsis abd wall cellulitis fluid overload effusions and edema anemia PLAN respiratory as is no new recommendations dispo per primary team Subjective Allergies: Coded Allergies: LATEX (Verified Allergy, Unknown, skin rash, 08/12/17) PENICILLINS (Verified Allergy, Unknown, 07/30/17) According to mother, the patient is allergic to Penicillins Subjective off vent- stable remains stable and alert Objective Last 24 Hour Vital Signs Date Time Temp Pulse Resp B/P (MAP) Pulse Ox O2 Delivery O2 Flow Rate FiO2 08/23/17 09:23 94 148/84 08/23/17 09:23 94 148/84 08/23/17 08:00 98.3 86 20 156/83 96 Nasal Cannula 2.0 98.3 08/23/17 07:25 Nasal Cannula 4.0 36 08/23/17 07:25 96 Nasal Cannula 4.0 36 08/23/17 04:17 98.9 94 19 148/84 93 98.9 08/23/17 04:00 Nasal Cannula 2.0 08/23/17 00:32 99.1 92 20 146/85 94 99.1 08/23/17 00:00 Nasal Cannula 2.0 08/22/17 22:30 97 173/90 08/22/17 20:49 98.7 97 19 173/90 92 98.7 08/22/17 20:00 Nasal Cannula 2.0 08/22/17 16:00 97.7 89 20 141/70 95 Nasal Cannula 2.0 97.7 Intake and Output 08/22/17 08/23/17 19:00 07:00 Intake Total 370 ml 970 ml Output Total 1000 ml 3400 ml Balance -630 ml -2430 ml Intake Oral 260 ml 860 ml IV Total 110 ml 110 ml Output Urine Total 1000 ml 3400 ml # Voids 5 # Bowel Movements 3 Objective WDWN off vent and seems stable NAD reduced breath sounds bilaterally without rhonchi or wheeze [id number] without MRG NABS nontender no HSM no CC edema nonfocal Microbiology Date/Time Source Procedure Growth Status 08/21/17 15:30 Blood Blood Culture - Preliminary NO GROWTH AFTER 24 HOURS Resulted 08/21/17 15:15 Blood Blood Culture - Preliminary NO GROWTH AFTER 24 HOURS Resulted 08/21/17 13:50 Abdomen Gram Stain - Final Resulted 08/21/17 13:50 Wound Culture - Preliminary Pseudomonas Aeruginosa Resulted Laboratory Tests 08/23/17 11:00: White Blood Count 6.0, Red Blood Count 3.44L, Hemoglobin 8.4L, Hematocrit 26.2L , Mean Corpuscular Volume 76L, Mean Corpuscular Hemoglobin 24.3L, Mean Corpuscular Hemoglobin Concent 32.0, Red Cell Distribution Width 18.4H, Platelet Count 226, Mean Platelet Volume 4.9L, Neutrophils (%) (Auto) 63.8, Lymphocytes (%) (Auto) 23.3, Monocytes (%) (Auto) 8.1, Eosinophils (%) (Auto) 3.7H, Basophils (%) (Auto) 1.1, Sodium Level 137, Potassium Level 4.2, Chloride Level 105, Carbon Dioxide Level 21, Anion Gap 11, Blood Urea Nitrogen 15, Creatinine 1.2, Estimat Glomerular Filtration Rate 47.9, Glucose Level 181H, Calcium Level 8.3L Current Medications Medications (Trade) Dose Ordered Sig/Tommy Route PRN Reason Start Time Stop Time Status Last Admin Dose Admin Acetaminophen (Tylenol) 650 mg Q4H PRN NG Mild Pain/Temp > 100.5 08/17/17 15:30 09/07/17 15:29 Acetaminophen (Tylenol) 650 mg Q6H PRN RECTAL for fever 08/17/17 15:30 09/14/17 15:29 Amlodipine Besylate (Norvasc) 10 mg DAILY ORAL 08/18/17 09:00 09/17/17 08:59 08/23/17 09:23 Carvedilol (Coreg) 6.25 mg EVERY 12 HOURS ORAL 08/20/17 10:00 09/19/17 09:59 08/23/17 09:23 Ceftriaxone Sodium 2 gm/ Sodium Chloride 110 ml @ 220 mls/hr Q24H IVPB 08/22/17 15:00 08/29/17 14:59 08/22/17 14:09 Chlorhexidine Gluconate (Idalia-Hex 2%) 1 applic DAILY@2000 TOPIC 08/17/17 20:00 09/08/17 19:59 08/21/17 20:19 Clonidine HCl (Catapres Tab) 0.1 mg Q4H PRN ORAL SBP > 160 mmHg 08/17/17 15:52 09/16/17 15:51 Clotrimazole (Lotrimin) 1 applic BID TOPIC 08/17/17 18:00 09/15/17 17:59 08/19/17 09:39 Dextrose (Dextrose 50%) 25 ml STAT PRN IV Hypoglycemia 08/17/17 15:30 09/14/17 15:29 Dextrose (Dextrose 50%) 50 ml STAT PRN IV Hypoglycemia 08/17/17 15:30 09/14/17 15:29 Doxycycline Hyclate 100 mg/ Sodium Chloride 110 ml @ 110 mls/hr Q12HR IV 08/22/17 21:00 08/29/17 20:59 08/23/17 10:19 Heparin Sodium (Porcine) (Heparin 5000 units/ml) 5,000 units Q8HR SUBQ 08/17/17 15:30 09/16/17 15:29 08/23/17 06:15 Insulin Aspart (NovoLOG) BEFORE MEALS AND HS SUBQ 08/17/17 16:30 09/11/17 11:29 08/23/17 06:14 Insulin Detemir (Levemir) 6 units Q12HR SUBQ 08/17/17 21:00 09/06/17 08:59 08/23/17 09:25 Nateglinide (Starlix) 120 mg TIAC ORAL 08/22/17 11:30 09/16/17 06:29 08/23/17 06:06 Nystatin (Nystop Powder) 1 applic THREE TIMES A DAY TOPIC 08/17/17 18:00 09/15/17 13:59 08/22/17 08:46 Ondansetron HCl (Zofran) 4 mg Q6H PRN IVP Nausea & Vomiting 08/22/17 09:15 09/21/17 09:14 Pantoprazole (Protonix) 40 mg ACBREAKFAST ORAL 08/18/17 06:30 09/17/17 06:29 08/23/17 06:06 Promethazine HCl/ Dextromethorphan (Phenergan DM) 6.25 mg Q6H PRN ORAL For Cough 08/19/17 14:00 09/18/17 13:59 08/19/17 14:37 Silver Sulfadiazine (Silvadene Cream 25gm) 1 applic DAILY TOPIC 5/24/18 09:00 08/31/17 10:29 08/19/17 09:38 Stew Hopson MD August 23, 2017 12:04
--- NOTE | 2017-08-23 13:51 | Infectious Diseases Prog Note ---
Assessment/Plan Problems: (1) Cellulitis of abdominal wall Assessment & Plan: complicated with panniculitis, improved , S/P meropenem and zyvox empiric coverage for more than two weeks which cover her left forearm cellulitis too , bone scan of the left leg ruled out osteomyelitis also her ankle X ray , repeated blood culture is negative . she has slow recovery due to significant lymphedema and fluids overload. left lower abdominal folds wound culture grew pseudomonas aeruginosa only so will stop topical sulfadiazine and continue local fungal coverage for her skin folds and to apply dry dressing to her skin wound three times daily , will start ciprofloxain for her skin wounds for 7 days , recommend to keep area well ventilated. stop ceftriaxon and doxycycline (2) UTI (urinary tract infection) Assessment & Plan: due to strep agalactiae and staph aureus, improved , S/P meropenem for two weeks (3) Septic shock Assessment & Plan: resolved, due to the above , repeated blood culture is negative , S/P meropenem and zyvox for more than two weeks to cover her forearm cellulitis too , monitor WBC (4) Respiratory failure requiring intubation Assessment & Plan: with fluids over load and pleural effusion, improved , was extubated , continue HD to remove more fluids as tolerated , monitor CXR. (5) SCARLET (acute kidney injury) Assessment & Plan: still on HD , has mild improvement in her urine output, nephrology is following, monitor UOP (6) DKA (diabetic ketoacidoses) Assessment & Plan: due to poorly controlled diabetes and sepsis, S/P insulin drip in the ICU , continue close monitor of her blood glucose to keep between 80 -120 (7) Leg wound, left Assessment & Plan: with infection due to staph aureus and klebsiella oxytoca, improved S/P meropenem and zyvox for more than two weeks , continue local wound care as per hospital protocol , bone scan ruled out underlying osteomyelitis also her X ray . (8) Forearm swelling Assessment & Plan: with redness and erythema, infiltration due to IV line, VS phlebitis, doubt an abscess since she is on wide spectrum covergae of antibiotics . venous doppler was negative for DVT as per preliminary report , continue heat pads and wide spectrum antibiotics Subjective Constitutional: Reports: no symptoms HEENT: Reports: no symptoms Respiratory: Reports: no symptoms Breasts: Reports: no symptoms Cardiovascular: Reports: no symptoms Gastrointestinal/Abdominal: Reports: no symptoms Genitourinary: Reports: no symptoms Neurologic: Reports: no symptoms Psychiatric: Reports: no symptoms Skin: Reports: no symptoms Endocrine: Reports: no symptoms Hematologic: Reports: no symptoms Musculoskeletal: Reports: no symptoms Allergies: Coded Allergies: LATEX (Verified Allergy, Unknown, skin rash, 08/12/17) PENICILLINS (Verified Allergy, Unknown, 07/30/17) According to mother, the patient is allergic to Penicillins Subjective she was awake and alert, resting in bed , denied any fever or chills , has less left forearm redness and swelling . has less lymphedema in her lower abdomen skin and less redness. small skin breaks due to the previous blisters with clear fluids draining out . Objective Vital Signs Last 24 Hour Vital Signs Date Time Temp Pulse Resp B/P (MAP) Pulse Ox O2 Delivery O2 Flow Rate FiO2 08/23/17 12:00 98.0 82 20 148/85 96 Nasal Cannula 2.0 98.0 08/23/17 09:23 94 148/84 08/23/17 09:23 94 148/84 08/23/17 08:00 98.3 86 20 156/83 96 Nasal Cannula 2.0 98.3 08/23/17 07:25 Nasal Cannula 4.0 36 08/23/17 07:25 96 Nasal Cannula 4.0 36 08/23/17 04:17 98.9 94 19 148/84 93 98.9 08/23/17 04:00 Nasal Cannula 2.0 08/23/17 00:32 99.1 92 20 146/85 94 99.1 08/23/17 00:00 Nasal Cannula 2.0 08/22/17 22:30 97 173/90 08/22/17 20:49 98.7 97 19 173/90 92 98.7 08/22/17 20:00 Nasal Cannula 2.0 08/22/17 16:00 97.7 89 20 141/70 95 Nasal Cannula 2.0 97.7 Height (Feet): 5 Height (Inches): 5.00 Weight (Pounds): 308 General Appearance: WD/WN, no acute distress HEENT: normocephalic, atraumatic, anicteric, mucous membranes moist, PERRL Respiratory/Chest: chest wall non-tender, lungs clear, normal breath sounds, no respiratory distress, no accessory muscle use Cardiovascular: normal peripheral pulses, normal rate, regular rhythm, no gallop/murmur, no JVD Abdomen: normal bowel sounds, soft, non tender, no organomegaly, non distended , no mass, no scars Extremities: no cyanosis, no clubbing, other - left lateral ankle wound with good granulation at the base, not infected Skin: no rash, no lesions, ulcers, other - left lower abdomen skin blisters open draining clear fluids , and mild skin redness Neurologic/Psychiatric: alert, oriented x 3, responsive Microbiology Date/Time Source Procedure Growth Status 08/21/17 15:30 Blood Blood Culture - Preliminary NO GROWTH AFTER 24 HOURS Resulted 08/21/17 15:15 Blood Blood Culture - Preliminary NO GROWTH AFTER 24 HOURS Resulted 08/21/17 13:50 Abdomen Gram Stain - Final Resulted 08/21/17 13:50 Wound Culture - Preliminary Pseudomonas Aeruginosa Resulted Laboratory Tests Test 08/23/17 11:00 White Blood Count 6.0 K/UL (4.8-10.8) Red Blood Count 3.44 M/UL (4.20-5.40) L Hemoglobin 8.4 G/DL (12.0-16.0) L Hematocrit 26.2 % (37.0-47.0) L Mean Corpuscular Volume 76 FL (80-99) L Mean Corpuscular Hemoglobin 24.3 PG (27.0-31.0) L Mean Corpuscular Hemoglobin Concent 32.0 G/DL (32.0-36.0) Red Cell Distribution Width 18.4 % (11.6-14.8) H Platelet Count 226 K/UL (150-450) Mean Platelet Volume 4.9 FL (6.5-10.1) L Neutrophils (%) (Auto) 63.8 % (45.0-75.0) Lymphocytes (%) (Auto) 23.3 % (20.0-45.0) Monocytes (%) (Auto) 8.1 % (1.0-10.0) Eosinophils (%) (Auto) 3.7 % (0.0-3.0) H Basophils (%) (Auto) 1.1 % (0.0-2.0) Sodium Level 137 MMOL/L (136-145) Potassium Level 4.2 MMOL/L (3.5-5.1) Chloride Level 105 MMOL/L (98-107) Carbon Dioxide Level 21 MMOL/L (21-32) Anion Gap 11 mmol/L (5-15) Blood Urea Nitrogen 15 mg/dL (7-18) Creatinine 1.2 MG/DL (0.55-1.30) Estimat Glomerular Filtration Rate 47.9 mL/min (>60) Glucose Level 181 MG/DL (74-106) H Calcium Level 8.3 MG/DL (8.5-10.1) L Current Medications Medications (Trade) Dose Ordered Sig/Tommy Route PRN Reason Start Time Stop Time Status Last Admin Dose Admin Acetaminophen (Tylenol) 650 mg Q4H PRN NG Mild Pain/Temp > 100.5 08/17/17 15:30 09/07/17 15:29 Acetaminophen (Tylenol) 650 mg Q6H PRN RECTAL for fever 08/17/17 15:30 09/14/17 15:29 Amlodipine Besylate (Norvasc) 10 mg DAILY ORAL 08/18/17 09:00 09/17/17 08:59 08/23/17 09:23 Carvedilol (Coreg) 6.25 mg EVERY 12 HOURS ORAL 08/20/17 10:00 09/19/17 09:59 08/23/17 09:23 Chlorhexidine Gluconate (Idalia-Hex 2%) 1 applic DAILY@1999 TOPIC 08/17/17 20:00 09/08/17 19:59 08/21/17 20:19 Ciprofloxacin (Cipro 500mg tab) 500 mg EVERY 12 HOURS ORAL 08/23/17 21:00 08/30/17 20:59 Clonidine HCl (Catapres Tab) 0.1 mg Q4H PRN ORAL SBP > 160 mmHg 08/17/17 15:52 09/16/17 15:51 Clotrimazole (Lotrimin) 1 applic BID TOPIC 08/17/17 18:00 09/15/17 17:59 08/19/17 09:39 Dextrose (Dextrose 50%) 25 ml STAT PRN IV Hypoglycemia 08/17/17 15:30 09/14/17 15:29 Dextrose (Dextrose 50%) 50 ml STAT PRN IV Hypoglycemia 08/17/17 15:30 09/14/17 15:29 Doxycycline Hyclate 100 mg/ Sodium Chloride 110 ml @ 110 mls/hr Q12HR IV 08/22/17 21:00 08/29/17 20:59 08/23/17 10:19 Heparin Sodium (Porcine) (Heparin 5000 units/ml) 5,000 units Q8HR SUBQ 08/17/17 15:30 09/16/17 15:29 08/23/17 06:15 Insulin Aspart (NovoLOG) BEFORE MEALS AND HS SUBQ 08/17/17 16:30 09/11/17 11:29 08/23/17 12:23 Insulin Detemir (Levemir) 6 units Q12HR SUBQ 08/17/17 21:00 09/06/17 08:59 08/23/17 09:25 Nateglinide (Starlix) 120 mg TIAC ORAL 08/22/17 11:30 09/16/17 06:29 08/23/17 12:20 Nystatin (Nystop Powder) 1 applic THREE TIMES A DAY TOPIC 08/17/17 18:00 09/15/17 13:59 08/22/17 08:46 Ondansetron HCl (Zofran) 4 mg Q6H PRN IVP Nausea & Vomiting 08/22/17 09:15 09/21/17 09:14 Pantoprazole (Protonix) 40 mg ACBREAKFAST ORAL 08/18/17 06:30 09/17/17 06:29 08/23/17 06:06 Promethazine HCl/ Dextromethorphan (Phenergan DM) 6.25 mg Q6H PRN ORAL For Cough 08/19/17 14:00 09/18/17 13:59 08/19/17 14:37 Johanny Colbert M.D. August 23, 2017 13:51
--- NOTE | 2017-08-23 14:39 | GI Progress Note ---
Assessment/Plan Problems: (1) Anemia ICD Codes: D64.9 - Anemia, unspecified SNOMED: 028500725 (2) Diabetes mellitus ICD Codes: E11.9 - Type 2 diabetes mellitus without complications SNOMED: 88021059 Status: stable, progressing Status Narrative Discussed with Dr. Hernandez. Assessment/Plan Assessment - Sepsis, improved - resp failure, resolved - DKA - abd wall cellulitis - obesity - Renal failure - Anemia >> OB (+)(-)(-) - ST evaluation reviewed Recommendations - soft diet, tolerating - ppi daily - elevated HOB - abx - follow labs and exam - transfuse PRN - OT/PT evaluation - fu labs The patient was seen and examined at bedside and all new and available data was reviewed in the patients chart. I agree with the above findings, impression and plan. (Patient seen earlier today. Signature stamp does not reflect patient encounter time.). - Gianni Hernandez MD Subjective Gastrointestinal/Abdominal: Reports: no symptoms Subjective tolerating food Objective Last 24 Hour Vital Signs Date Time Temp Pulse Resp B/P (MAP) Pulse Ox O2 Delivery O2 Flow Rate FiO2 08/23/17 12:00 98.0 82 20 148/85 96 Nasal Cannula 2.0 98.0 08/23/17 09:23 94 148/84 08/23/17 09:23 94 148/84 08/23/17 08:00 98.3 86 20 156/83 96 Nasal Cannula 2.0 98.3 08/23/17 07:25 Nasal Cannula 4.0 36 08/23/17 07:25 96 Nasal Cannula 4.0 36 08/23/17 04:17 98.9 94 19 148/84 93 98.9 08/23/17 04:00 Nasal Cannula 2.0 08/23/17 00:32 99.1 92 20 146/85 94 99.1 08/23/17 00:00 Nasal Cannula 2.0 08/22/17 22:30 97 173/90 08/22/17 20:49 98.7 97 19 173/90 92 98.7 08/22/17 20:00 Nasal Cannula 2.0 08/22/17 16:00 97.7 89 20 141/70 95 Nasal Cannula 2.0 97.7 Intake and Output 08/22/17 08/23/17 19:00 07:00 Intake Total 370 ml 970 ml Output Total 1000 ml 3400 ml Balance -630 ml -2430 ml Intake Oral 260 ml 860 ml IV Total 110 ml 110 ml Output Urine Total 1000 ml 3400 ml # Voids 5 # Bowel Movements 3 Laboratory Tests Test 08/23/17 11:00 White Blood Count 6.0 K/UL (4.8-10.8) Red Blood Count 3.44 M/UL (4.20-5.40) L Hemoglobin 8.4 G/DL (12.0-16.0) L Hematocrit 26.2 % (37.0-47.0) L Mean Corpuscular Volume 76 FL (80-99) L Mean Corpuscular Hemoglobin 24.3 PG (27.0-31.0) L Mean Corpuscular Hemoglobin Concent 32.0 G/DL (32.0-36.0) Red Cell Distribution Width 18.4 % (11.6-14.8) H Platelet Count 226 K/UL (150-450) Mean Platelet Volume 4.9 FL (6.5-10.1) L Neutrophils (%) (Auto) 63.8 % (45.0-75.0) Lymphocytes (%) (Auto) 23.3 % (20.0-45.0) Monocytes (%) (Auto) 8.1 % (1.0-10.0) Eosinophils (%) (Auto) 3.7 % (0.0-3.0) H Basophils (%) (Auto) 1.1 % (0.0-2.0) Sodium Level 137 MMOL/L (136-145) Potassium Level 4.2 MMOL/L (3.5-5.1) Chloride Level 105 MMOL/L (98-107) Carbon Dioxide Level 21 MMOL/L (21-32) Anion Gap 11 mmol/L (5-15) Blood Urea Nitrogen 15 mg/dL (7-18) Creatinine 1.2 MG/DL (0.55-1.30) Estimat Glomerular Filtration Rate 47.9 mL/min (>60) Glucose Level 181 MG/DL (74-106) H Calcium Level 8.3 MG/DL (8.5-10.1) L Height (Feet): 5 Height (Inches): 5.00 Weight (Pounds): 308 General Appearance: WD/WN, no apparent distress, alert, morbidly obese Cardiovascular: normal rate Respiratory/Chest: normal breath sounds, no respiratory distress Abdominal Exam: normal bowel sounds, non tender, soft Extremities: normal range of motion, non-tender Ham Gonzalez NP August 23, 2017 14:39
[2017-08-23 16:00] VITALS: BP 138/81
[2017-08-23 20:00] VITALS: BP 142/89
[2017-08-23] MEDS: Ciprofloxacin 500mg tab ORAL SCH (21:38)
[2017-08-23] MEDS: Dyna-Hex 2% Top Sol 2oz TOPIC SCH (21:38)
[2017-08-23] MEDS: Promethazine/DM 6.25mg/5ml ORAL PRN (21:48)
[2017-08-24] VITALS: BP 137/81
[2017-08-24] MEDS ORDERED: Nystatin Powder 100,000 units/gm 15gm TOPIC SCH
[2017-08-24] MEDS ORDERED: Carvedilol 6.25mg Tab ORAL SCH
[2017-08-24] MEDS ORDERED: Levemir Flexpen SUBQ SCH
[2017-08-24] MEDS ORDERED: Ciprofloxacin 500mg tab ORAL SCH
[2017-08-24 04:00] VITALS: BP 143/83
[2017-08-24] MEDS: Nateglinide 60mg tab ORAL SCH (05:42)
[2017-08-24] MEDS: NovoLOG Insulin Flexpen SUBQ SCH ×2 (05:45→12:24)
[2017-08-24] MEDS: Heparin 5000 units/ml inj SUBQ SCH ×2 (05:45→14:36)
[2017-08-24 08:00] VITALS: BP 140/80
[2017-08-24 08:00] LABS: BASOPHILS % (AUTO) 1.1 % (0.0-2.0); EOSINOPHILS % (AUTO) 3.8 % (0.0-3.0); HEMATOCRIT 27.1 % (37.0-47.0); HEMOGLOBIN 8.9 G/DL (12.0-16.0); LYMPHOCYTES % (AUTO) 24.2 % (20.0-45.0); MEAN CORPUSCULAR VOLUME 76 FL (80-99); MONOCYTES % (AUTO) 10.9 % (1.0-10.0); PLATELET COUNT 234 K/UL (150-450); RED BLOOD COUNT 3.59 M/UL (4.20-5.40); RED CELL DISTRIBUTION WIDTH 19.2 % (11.6-14.8); WHITE BLOOD COUNT 6.3 K/UL (4.8-10.8)
[2017-08-24 08:13] LABS: ANION GAP 8 mmol/L (5-15); BLOOD UREA NITROGEN 14 mg/dL (7-18); CALCIUM 8.4 MG/DL (8.5-10.1); CARBON DIOXIDE 24 MMOL/L (21-32); CHLORIDE 107 MMOL/L (98-107); CREATININE 1.2 MG/DL (0.55-1.30); POTASSIUM 4.1 MMOL/L (3.5-5.1); SODIUM 139 MMOL/L (136-145)
--- NOTE | 2017-08-24 09:17 | Nephrology Progress Note ---
Assessment/Plan Assessment/Plan 1. SCARLET- resolved. Off Hd and Cr 1.2 - multifact ATN (sepsis induced inflammotory cytokine prox tub damage/ ishchemic ATN hypotension/vol dep) - DC home today. Cleared by consultants 2. DM- on insulin and oral hypoglycemics. Rx's given 3. Septic Shock- Abx mgmt per ID. - resolved 4. HTN- Norvasc and Coreg. Stable. Rxs given 5. Disposition- due to insurance status , patient does not qualify for HH or SNF. - DC home with self care/walker. SW spoke with family 6. Hypok+/Ca/Phos- corrected 7. Anemia- s/p bld tx. stable per GI for DC Subjective Date patient seen: August 24, 2017 Time patient seen: 09:14 ROS Limited/Unobtainable: No Allergies: Coded Allergies: LATEX (Verified Allergy, Unknown, skin rash, 08/12/17) PENICILLINS (Verified Allergy, Unknown, 07/30/17) According to mother, the patient is allergic to Penicillins Subjective Patient back to baseline. DC home today. Objective Last 24 Hour Vital Signs Date Time Temp Pulse Resp B/P (MAP) Pulse Ox O2 Delivery O2 Flow Rate FiO2 08/24/17 04:00 98.3 81 20 143/83 97 98.3 08/24/17 00:00 98.0 87 19 137/81 94 98.0 08/23/17 21:39 94 142/89 08/23/17 20:00 99.3 94 19 142/89 98 99.3 08/23/17 19:03 Nasal Cannula 4.0 36 08/23/17 19:03 96 Nasal Cannula 4.0 36 08/23/17 16:00 97.7 91 20 138/81 96 Nasal Cannula 2.0 97.7 08/23/17 12:00 98.0 82 20 148/85 96 Nasal Cannula 2.0 98.0 08/23/17 09:23 94 148/84 08/23/17 09:23 94 148/84 Intake and Output 08/23/17 08/24/17 19:00 07:00 Intake Total 430 ml Output Total 1000 ml 2200 ml Balance -570 ml -2200 ml Intake Oral 320 ml IV Total 110 ml Output Urine Total 1000 ml 2200 ml Laboratory Tests 08/23/17 11:00: White Blood Count 6.0, Red Blood Count 3.44L, Hemoglobin 8.4L, Hematocrit 26.2L , Mean Corpuscular Volume 76L, Mean Corpuscular Hemoglobin 24.3L, Mean Corpuscular Hemoglobin Concent 32.0, Red Cell Distribution Width 18.4H, Platelet Count 226, Mean Platelet Volume 4.9L, Neutrophils (%) (Auto) 63.8, Lymphocytes (%) (Auto) 23.3, Monocytes (%) (Auto) 8.1, Eosinophils (%) (Auto) 3.7H, Basophils (%) (Auto) 1.1, Sodium Level 137, Potassium Level 4.2, Chloride Level 105, Carbon Dioxide Level 21, Anion Gap 11, Blood Urea Nitrogen 15, Creatinine 1.2, Estimat Glomerular Filtration Rate 47.9, Glucose Level 181H, Calcium Level 8.3L 08/24/17 06:31: White Blood Count 6.3, Red Blood Count 3.59L, Hemoglobin 8.9L, Hematocrit 27.1L , Mean Corpuscular Volume 76L, Mean Corpuscular Hemoglobin 24.8L, Mean Corpuscular Hemoglobin Concent 32.8, Red Cell Distribution Width 19.2H, Platelet Count 234, Mean Platelet Volume 5.7L, Neutrophils (%) (Auto) 60.0, Lymphocytes (%) (Auto) 24.2, Monocytes (%) (Auto) 10.9H, Eosinophils (%) (Auto) 3.8H, Basophils (%) (Auto) 1.1, Sodium Level 139, Potassium Level 4.1, Chloride Level 107, Carbon Dioxide Level 24, Anion Gap 8, Blood Urea Nitrogen 14, Creatinine 1.2, Estimat Glomerular Filtration Rate 47.9, Glucose Level 128H, Calcium Level 8.4L Height (Feet): 5 Height (Inches): 5.00 Weight (Pounds): 302 General Appearance: no apparent distress, alert EENT: normal ENT inspection Neck: normal alignment, supple Cardiovascular: regular rhythm Respiratory/Chest: lungs clear, normal breath sounds Abdomen: non tender, soft Edema: no edema noted Arm (L), no edema noted Arm (R), no edema noted Leg (L), no edema noted Leg (R), no edema noted Pedal (L), no edema noted Pedal (R), no edema noted Generalized De NiruCarlton ridley M.D. August 24, 2017 09:17
--- NOTE | 2017-08-24 09:27 | Pulmonology Progress Note ---
Assessment/Plan Assessment/Plan respiratory failure s/p extubation and now with reintubation DKA sepsis abd wall cellulitis fluid overload effusions and edema anemia PLAN respiratory as is no new recommendations dispo per primary team Subjective Allergies: Coded Allergies: LATEX (Verified Allergy, Unknown, skin rash, 08/12/17) PENICILLINS (Verified Allergy, Unknown, 07/30/17) According to mother, the patient is allergic to Penicillins Subjective off vent- stable remains stable and alert Objective Last 24 Hour Vital Signs Date Time Temp Pulse Resp B/P (MAP) Pulse Ox O2 Delivery O2 Flow Rate FiO2 08/24/17 08:00 97.8 83 20 140/80 98 97.8 08/24/17 04:00 98.3 81 20 143/83 97 98.3 08/24/17 00:00 98.0 87 19 137/81 94 98.0 08/23/17 21:39 94 142/89 08/23/17 20:00 99.3 94 19 142/89 98 99.3 08/23/17 19:03 Nasal Cannula 4.0 36 08/23/17 19:03 96 Nasal Cannula 4.0 36 08/23/17 16:00 97.7 91 20 138/81 96 Nasal Cannula 2.0 97.7 08/23/17 12:00 98.0 82 20 148/85 96 Nasal Cannula 2.0 98.0 Intake and Output 08/23/17 08/24/17 19:00 07:00 Intake Total 430 ml Output Total 1000 ml 2200 ml Balance -570 ml -2200 ml Intake Oral 320 ml IV Total 110 ml Output Urine Total 1000 ml 2200 ml Objective WDWN off vent and seems stable NAD reduced breath sounds bilaterally without rhonchi or wheeze [id number] without MRG NABS nontender no HSM no CC edema nonfocal Microbiology Date/Time Source Procedure Growth Status 08/21/17 15:30 Blood Blood Culture - Preliminary NO GROWTH AFTER 48 HOURS Resulted 08/21/17 15:15 Blood Blood Culture - Preliminary NO GROWTH AFTER 48 HOURS Resulted 08/21/17 13:50 Abdomen Gram Stain - Final Complete 08/21/17 13:50 Wound Culture - Final Pseudomonas Aeruginosa Complete Laboratory Tests 08/23/17 11:00: White Blood Count 6.0, Red Blood Count 3.44L, Hemoglobin 8.4L, Hematocrit 26.2L , Mean Corpuscular Volume 76L, Mean Corpuscular Hemoglobin 24.3L, Mean Corpuscular Hemoglobin Concent 32.0, Red Cell Distribution Width 18.4H, Platelet Count 226, Mean Platelet Volume 4.9L, Neutrophils (%) (Auto) 63.8, Lymphocytes (%) (Auto) 23.3, Monocytes (%) (Auto) 8.1, Eosinophils (%) (Auto) 3.7H, Basophils (%) (Auto) 1.1, Sodium Level 137, Potassium Level 4.2, Chloride Level 105, Carbon Dioxide Level 21, Anion Gap 11, Blood Urea Nitrogen 15, Creatinine 1.2, Estimat Glomerular Filtration Rate 47.9, Glucose Level 181H, Calcium Level 8.3L 08/24/17 06:31: White Blood Count 6.3, Red Blood Count 3.59L, Hemoglobin 8.9L, Hematocrit 27.1L , Mean Corpuscular Volume 76L, Mean Corpuscular Hemoglobin 24.8L, Mean Corpuscular Hemoglobin Concent 32.8, Red Cell Distribution Width 19.2H, Platelet Count 234, Mean Platelet Volume 5.7L, Neutrophils (%) (Auto) 60.0, Lymphocytes (%) (Auto) 24.2, Monocytes (%) (Auto) 10.9H, Eosinophils (%) (Auto) 3.8H, Basophils (%) (Auto) 1.1, Sodium Level 139, Potassium Level 4.1, Chloride Level 107, Carbon Dioxide Level 24, Anion Gap 8, Blood Urea Nitrogen 14, Creatinine 1.2, Estimat Glomerular Filtration Rate 47.9, Glucose Level 128H, Calcium Level 8.4L Current Medications Medications (Trade) Dose Ordered Sig/Tommy Route PRN Reason Start Time Stop Time Status Last Admin Dose Admin Acetaminophen (Tylenol) 650 mg Q4H PRN NG Mild Pain/Temp > 100.5 08/17/17 15:30 09/07/17 15:29 Acetaminophen (Tylenol) 650 mg Q6H PRN RECTAL for fever 08/17/17 15:30 09/14/17 15:29 Amlodipine Besylate (Norvasc) 10 mg DAILY ORAL 08/18/17 09:00 09/17/17 08:59 08/23/17 09:23 Carvedilol (Coreg) 6.25 mg EVERY 12 HOURS ORAL 08/20/17 10:00 09/19/17 09:59 08/23/17 21:39 Chlorhexidine Gluconate (Idalia-Hex 2%) 1 applic DAILY@1999 TOPIC 08/17/17 20:00 09/08/17 19:59 08/23/17 21:38 Ciprofloxacin (Cipro 500mg tab) 500 mg EVERY 12 HOURS ORAL 08/23/17 21:00 08/30/17 20:59 08/23/17 21:38 Clonidine HCl (Catapres Tab) 0.1 mg Q4H PRN ORAL SBP > 160 mmHg 08/17/17 15:52 09/16/17 15:51 Clotrimazole (Lotrimin) 1 applic BID TOPIC 08/17/17 18:00 09/15/17 17:59 08/23/17 17:34 Dextrose (Dextrose 50%) 25 ml STAT PRN IV Hypoglycemia 08/17/17 15:30 09/14/17 15:29 Dextrose (Dextrose 50%) 50 ml STAT PRN IV Hypoglycemia 08/17/17 15:30 09/14/17 15:29 Heparin Sodium (Porcine) (Heparin 5000 units/ml) 5,000 units Q8HR SUBQ 08/17/17 15:30 09/16/17 15:29 08/24/17 05:45 Insulin Aspart (NovoLOG) BEFORE MEALS AND HS SUBQ 08/17/17 16:30 09/11/17 11:29 08/24/17 05:45 Insulin Detemir (Levemir) 6 units Q12HR SUBQ 08/17/17 21:00 09/06/17 08:59 08/23/17 21:57 Nateglinide (Starlix) 120 mg TIAC ORAL 08/22/17 11:30 09/16/17 06:29 08/24/17 05:42 Nystatin (Nystop Powder) 1 applic THREE TIMES A DAY TOPIC 08/17/17 18:00 09/15/17 13:59 08/22/17 08:46 Ondansetron HCl (Zofran) 4 mg Q6H PRN IVP Nausea & Vomiting 08/22/17 09:15 09/21/17 09:14 Pantoprazole (Protonix) 40 mg ACBREAKFAST ORAL 08/18/17 06:30 09/17/17 06:29 08/24/17 05:42 Promethazine HCl/ Dextromethorphan (Phenergan DM) 6.25 mg Q6H PRN ORAL For Cough 08/19/17 14:00 09/18/17 13:59 08/23/17 21:48 Stew Hopson MD August 24, 2017 09:27
[2017-08-24] MEDS: Carvedilol 6.25mg Tab ORAL SCH (10:14)
[2017-08-24] MEDS: Ciprofloxacin 500mg tab ORAL SCH (10:15)
[2017-08-24] MEDS: Nystatin Powder 100,000 units/gm 15gm TOPIC SCH ×2 (10:15→14:06)
[2017-08-24] MEDS: Levemir Flexpen SUBQ SCH (10:20)
[2017-08-24] MEDS ORDERED: CIPROFLOXACIN500 M2 ORAL (10:25)
[2017-08-24] MEDS ORDERED: STARLIX60 MG ORAL (10:25)
[2017-08-24] MEDS ORDERED: LEVEMIR FL100 UNIT/1 SUBQ (10:25)
[2017-08-24] MEDS ORDERED: NORVASC10 MG ORAL (10:25)
[2017-08-24] MEDS ORDERED: NYSTOP POWDER15 GM TOPIC (10:25)
[2017-08-24] MEDS ORDERED: COREG6.25 MG ORAL (10:25)
--- NOTE | 2017-08-24 10:26 | Discharge Instructions ---
Discharge Instructions Discharge Instructions Diet: 2 GM sodium (low sodium) Resume Normal Activity?: Yes Activity: light activity, ambulate, ambulate w/ assist only Pneumonia Vaccine: vaccine not indicated Influenza Vaccine (Dec to May): vaccine not indicated Follow Up Orders 1. Patient to f/u with PCP 1 week to asses need for Endo mgmt and routine health maintainence For Congestive Heart Failure Reminder Report to your physician any weight gain of 5 pounds or more in one week. Carlton Guzmán M.D. August 24, 2017 10:26
--- NOTE | 2017-08-24 11:53 | GI Progress Note ---
Assessment/Plan Problems: (1) Anemia ICD Codes: D64.9 - Anemia, unspecified SNOMED: 746470570 (2) Diabetes mellitus ICD Codes: E11.9 - Type 2 diabetes mellitus without complications SNOMED: 98481862 Status: stable Status Narrative Discussed with Dr. Hernandez. Assessment/Plan Assessment - Sepsis, improved - resp failure, resolved - DKA - abd wall cellulitis - obesity - Renal failure - Anemia >> OB (+)(-)(-) - ST evaluation reviewed Recommendations - okay for DC per GI standpoint - soft diet, tolerating - ppi daily - elevated HOB - abx - follow labs and exam - transfuse PRN - OT/PT evaluation - fu labs The patient was seen and examined at bedside and all new and available data was reviewed in the patients chart. I agree with the above findings, impression and plan. (Patient seen earlier today. Signature stamp does not reflect patient encounter time.). - Gianni Hernandez MD Subjective Subjective tolerating food Objective Last 24 Hour Vital Signs Date Time Temp Pulse Resp B/P (MAP) Pulse Ox O2 Delivery O2 Flow Rate FiO2 08/24/17 10:14 83 140/80 08/24/17 10:14 83 140/80 08/24/17 08:00 97.8 83 20 140/80 98 97.8 08/24/17 04:00 98.3 81 20 143/83 97 98.3 08/24/17 00:00 98.0 87 19 137/81 94 98.0 08/23/17 21:39 94 142/89 08/23/17 20:00 99.3 94 19 142/89 98 99.3 08/23/17 19:03 Nasal Cannula 4.0 36 08/23/17 19:03 96 Nasal Cannula 4.0 36 08/23/17 16:00 97.7 91 20 138/81 96 Nasal Cannula 2.0 97.7 08/23/17 12:00 98.0 82 20 148/85 96 Nasal Cannula 2.0 98.0 Intake and Output 08/23/17 08/24/17 19:00 07:00 Intake Total 430 ml Output Total 1000 ml 2200 ml Balance -570 ml -2200 ml Intake Oral 320 ml IV Total 110 ml Output Urine Total 1000 ml 2200 ml Laboratory Tests Test 5/30/18 06:31 White Blood Count 6.3 K/UL (4.8-10.8) Red Blood Count 3.59 M/UL (4.20-5.40) L Hemoglobin 8.9 G/DL (12.0-16.0) L Hematocrit 27.1 % (37.0-47.0) L Mean Corpuscular Volume 76 FL (80-99) L Mean Corpuscular Hemoglobin 24.8 PG (27.0-31.0) L Mean Corpuscular Hemoglobin Concent 32.8 G/DL (32.0-36.0) Red Cell Distribution Width 19.2 % (11.6-14.8) H Platelet Count 234 K/UL (150-450) Mean Platelet Volume 5.7 FL (6.5-10.1) L Neutrophils (%) (Auto) 60.0 % (45.0-75.0) Lymphocytes (%) (Auto) 24.2 % (20.0-45.0) Monocytes (%) (Auto) 10.9 % (1.0-10.0) H Eosinophils (%) (Auto) 3.8 % (0.0-3.0) H Basophils (%) (Auto) 1.1 % (0.0-2.0) Sodium Level 139 MMOL/L (136-145) Potassium Level 4.1 MMOL/L (3.5-5.1) Chloride Level 107 MMOL/L (98-107) Carbon Dioxide Level 24 MMOL/L (21-32) Anion Gap 8 mmol/L (5-15) Blood Urea Nitrogen 14 mg/dL (7-18) Creatinine 1.2 MG/DL (0.55-1.30) Estimat Glomerular Filtration Rate 47.9 mL/min (>60) Glucose Level 128 MG/DL (74-106) H Calcium Level 8.4 MG/DL (8.5-10.1) L Height (Feet): 5 Height (Inches): 5.00 Weight (Pounds): 302 General Appearance: WD/WN, no apparent distress, alert Cardiovascular: normal rate Respiratory/Chest: normal breath sounds, no respiratory distress Abdominal Exam: normal bowel sounds, non tender, soft Extremities: normal range of motion, non-tender Ham Gonzalez NP August 24, 2017 11:53
[2017-08-24 12:00] VITALS: BP 111/64
--- NOTE | 2017-08-24 14:13 | Infectious Diseases Prog Note ---
Assessment/Plan Problems: (1) Cellulitis of abdominal wall Assessment & Plan: complicated with panniculitis, improved , S/P meropenem and zyvox empiric coverage for more than two weeks which cover her left forearm cellulitis too , bone scan of the left leg ruled out osteomyelitis also her ankle X ray , repeated blood culture is negative . she has slow recovery due to significant lymphedema and fluids overload. left lower abdominal folds wound culture grew pseudomonas aeruginosa only . continue local fungal coverage for her skin folds and to apply dry dressing to her skin wound three times daily , continue ciprofloxain for her skin wounds for 6 more days , recommend to keep area well ventilated. (2) UTI (urinary tract infection) Assessment & Plan: due to strep agalactiae and staph aureus, improved , S/P meropenem for two weeks (3) Septic shock Assessment & Plan: resolved, due to the above , repeated blood culture is negative , S/P meropenem and zyvox for more than two weeks to cover her forearm cellulitis too , monitor WBC (4) Respiratory failure requiring intubation Assessment & Plan: with fluids over load and pleural effusion, improved , was extubated , continue HD to remove more fluids as tolerated , monitor CXR. (5) SCARLET (acute kidney injury) Assessment & Plan: still on HD , has mild improvement in her urine output, nephrology is following, monitor UOP (6) DKA (diabetic ketoacidoses) Assessment & Plan: due to poorly controlled diabetes and sepsis, S/P insulin drip in the ICU , continue close monitor of her blood glucose to keep between 80 -120 (7) Leg wound, left Assessment & Plan: with infection due to staph aureus and klebsiella oxytoca, improved S/P meropenem and zyvox for more than two weeks , continue local wound care as per hospital protocol , bone scan ruled out underlying osteomyelitis also her X ray . (8) Forearm swelling Assessment & Plan: with redness and erythema, infiltration due to IV line, VS phlebitis, no clinical evidence of abscess since she has been on wide spectrum covergae of antibiotics . venous doppler was negative for DVT , continue heat pads and wide spectrum antibiotics, keep arm elevated all the time Subjective Constitutional: Reports: no symptoms HEENT: Reports: no symptoms Respiratory: Reports: no symptoms Breasts: Reports: no symptoms Cardiovascular: Reports: no symptoms Gastrointestinal/Abdominal: Reports: no symptoms Genitourinary: Reports: no symptoms Neurologic: Reports: no symptoms Psychiatric: Reports: no symptoms Skin: Reports: no symptoms Endocrine: Reports: no symptoms Hematologic: Reports: no symptoms Musculoskeletal: Reports: no symptoms Allergies: Coded Allergies: LATEX (Verified Allergy, Unknown, skin rash, 08/12/17) PENICILLINS (Verified Allergy, Unknown, 07/30/17) According to mother, the patient is allergic to Penicillins Subjective she was awake and alert, doing well , denied any fever or chills , has less left forearm redness and swelling . has less lymphedema in her lower abdomen skin and less redness. small skin breaks due to the previous blisters with clear fluids draining out . no pus or foul smell Objective Vital Signs Last 24 Hour Vital Signs Date Time Temp Pulse Resp B/P (MAP) Pulse Ox O2 Delivery O2 Flow Rate FiO2 08/24/17 12:00 99.4 89 20 92 99.4 08/24/17 10:14 83 140/80 08/24/17 10:14 83 140/80 08/24/17 08:00 97.8 83 20 140/80 98 97.8 08/24/17 04:00 98.3 81 20 143/83 97 98.3 08/24/17 00:00 98.0 87 19 137/81 94 98.0 08/23/17 21:39 94 142/89 08/23/17 20:00 99.3 94 19 142/89 98 99.3 08/23/17 19:03 Nasal Cannula 4.0 36 08/23/17 19:03 96 Nasal Cannula 4.0 36 08/23/17 16:00 97.7 91 20 138/81 96 Nasal Cannula 2.0 97.7 Height (Feet): 5 Height (Inches): 5.00 Weight (Pounds): 302 General Appearance: WD/WN, no acute distress HEENT: normocephalic, atraumatic, anicteric, mucous membranes moist, PERRL Respiratory/Chest: chest wall non-tender, lungs clear, normal breath sounds, no respiratory distress, no accessory muscle use Cardiovascular: normal peripheral pulses, normal rate, regular rhythm, no gallop/murmur, no JVD Abdomen: normal bowel sounds, soft, non tender, no organomegaly, non distended , no mass, no scars Extremities: no cyanosis, no clubbing Skin: no rash, no lesions, ulcers Neurologic/Psychiatric: alert, oriented x 3 Microbiology Date/Time Source Procedure Growth Status 08/21/17 15:30 Blood Blood Culture - Preliminary NO GROWTH AFTER 48 HOURS Resulted 08/21/17 15:15 Blood Blood Culture - Preliminary NO GROWTH AFTER 48 HOURS Resulted Laboratory Tests Test 08/24/17 06:31 White Blood Count 6.3 K/UL (4.8-10.8) Red Blood Count 3.59 M/UL (4.20-5.40) L Hemoglobin 8.9 G/DL (12.0-16.0) L Hematocrit 27.1 % (37.0-47.0) L Mean Corpuscular Volume 76 FL (80-99) L Mean Corpuscular Hemoglobin 24.8 PG (27.0-31.0) L Mean Corpuscular Hemoglobin Concent 32.8 G/DL (32.0-36.0) Red Cell Distribution Width 19.2 % (11.6-14.8) H Platelet Count 234 K/UL (150-450) Mean Platelet Volume 5.7 FL (6.5-10.1) L Neutrophils (%) (Auto) 60.0 % (45.0-75.0) Lymphocytes (%) (Auto) 24.2 % (20.0-45.0) Monocytes (%) (Auto) 10.9 % (1.0-10.0) H Eosinophils (%) (Auto) 3.8 % (0.0-3.0) H Basophils (%) (Auto) 1.1 % (0.0-2.0) Sodium Level 139 MMOL/L (136-145) Potassium Level 4.1 MMOL/L (3.5-5.1) Chloride Level 107 MMOL/L (98-107) Carbon Dioxide Level 24 MMOL/L (21-32) Anion Gap 8 mmol/L (5-15) Blood Urea Nitrogen 14 mg/dL (7-18) Creatinine 1.2 MG/DL (0.55-1.30) Estimat Glomerular Filtration Rate 47.9 mL/min (>60) Glucose Level 128 MG/DL (74-106) H Calcium Level 8.4 MG/DL (8.5-10.1) L Current Medications Medications (Trade) Dose Ordered Sig/Tommy Route PRN Reason Start Time Stop Time Status Last Admin Dose Admin Acetaminophen (Tylenol) 650 mg Q4H PRN NG Mild Pain/Temp > 100.5 08/17/17 15:30 09/07/17 15:29 Acetaminophen (Tylenol) 650 mg Q6H PRN RECTAL for fever 08/17/17 15:30 09/14/17 15:29 Amlodipine Besylate (Norvasc) 10 mg DAILY ORAL 08/18/17 09:00 09/17/17 08:59 08/24/17 10:14 Carvedilol (Coreg) 6.25 mg EVERY 12 HOURS ORAL 08/20/17 10:00 09/19/17 09:59 08/24/17 10:14 Chlorhexidine Gluconate (Idalia-Hex 2%) 1 applic DAILY@1999 TOPIC 08/17/17 20:00 09/08/17 19:59 08/23/17 21:38 Ciprofloxacin (Cipro 500mg tab) 500 mg EVERY 12 HOURS ORAL 08/23/17 21:00 08/30/17 20:59 08/24/17 10:15 Clonidine HCl (Catapres Tab) 0.1 mg Q4H PRN ORAL SBP > 160 mmHg 08/17/17 15:52 09/16/17 15:51 Clotrimazole (Lotrimin) 1 applic BID TOPIC 08/17/17 18:00 09/15/17 17:59 08/23/17 17:34 Dextrose (Dextrose 50%) 25 ml STAT PRN IV Hypoglycemia 08/17/17 15:30 09/14/17 15:29 Dextrose (Dextrose 50%) 50 ml STAT PRN IV Hypoglycemia 08/17/17 15:30 09/14/17 15:29 Heparin Sodium (Porcine) (Heparin 5000 units/ml) 5,000 units Q8HR SUBQ 08/17/17 15:30 09/16/17 15:29 08/24/17 05:45 Insulin Aspart (NovoLOG) BEFORE MEALS AND HS SUBQ 08/17/17 16:30 09/11/17 11:29 08/24/17 12:24 Insulin Detemir (Levemir) 6 units Q12HR SUBQ 08/17/17 21:00 09/06/17 08:59 08/24/17 10:20 Nateglinide (Starlix) 120 mg TIAC ORAL 08/24/17 16:30 09/16/17 16:29 Nystatin (Nystop Powder) 1 applic THREE TIMES A DAY TOPIC 08/17/17 18:00 09/15/17 13:59 08/24/17 14:06 Ondansetron HCl (Zofran) 4 mg Q6H PRN IVP Nausea & Vomiting 08/22/17 09:15 09/21/17 09:14 Pantoprazole (Protonix) 40 mg ACBREAKFAST ORAL 08/18/17 06:30 09/17/17 06:29 08/24/17 05:42 Promethazine HCl/ Dextromethorphan (Phenergan DM) 6.25 mg Q6H PRN ORAL For Cough 08/19/17 14:00 09/18/17 13:59 08/23/17 21:48 Johanny Colbert M.D. August 24, 2017 14:13
[2017-08-24] MEDS: Promethazine/DM 6.25mg/5ml ORAL PRN (15:15)
--- NOTE | 2017-08-24 16:46 | Cardiac Electrophysiology PN ---
Assessment/Plan Assessment/Plan 1. S/P Septic shock due to diabetic ketoacidosis. On broad-spectrum IV antibiotic. Echocardiogram showed EF 60%. Rule out for SC 2. Diabetic ketoacidosis, on IV fluids and insulin. 3. S/P Cardiac arrest needing atropine. Due to respiratory failure 4. White count of 36,000, abdominal cellulitis. IV antibiotic per Dr. Colbert. 5. Morbid obesity. 6. S/P Respiratory failure 7. ARF. Resolved and dialysis catheter removed 8. Anemia hb 6.9. Transfused 2 units. 9. Severe hyponatremia Resolved DC today Subjective Subjective Alert in NAD. DC in progress Objective Last 24 Hour Vital Signs Date Time Temp Pulse Resp B/P (MAP) Pulse Ox O2 Delivery O2 Flow Rate FiO2 08/24/17 12:00 98.1 84 20 111/64 96 Room Air 98.1 08/24/17 12:00 99.4 89 20 92 99.4 08/24/17 10:14 83 140/80 08/24/17 10:14 83 140/80 08/24/17 08:00 97.8 83 20 140/80 98 97.8 08/24/17 04:00 98.3 81 20 143/83 97 98.3 08/24/17 00:00 98.0 87 19 137/81 94 98.0 08/23/17 21:39 94 142/89 08/23/17 20:00 99.3 94 19 142/89 98 99.3 08/23/17 19:03 Nasal Cannula 4.0 36 08/23/17 19:03 96 Nasal Cannula 4.0 36 Intake and Output 08/23/17 08/24/17 19:00 07:00 Intake Total 430 ml Output Total 1000 ml 2200 ml Balance -570 ml -2200 ml Intake Oral 320 ml IV Total 110 ml Output Urine Total 1000 ml 2200 ml Laboratory Tests Test 08/24/17 06:31 White Blood Count 6.3 K/UL (4.8-10.8) Red Blood Count 3.59 M/UL (4.20-5.40) L Hemoglobin 8.9 G/DL (12.0-16.0) L Hematocrit 27.1 % (37.0-47.0) L Mean Corpuscular Volume 76 FL (80-99) L Mean Corpuscular Hemoglobin 24.8 PG (27.0-31.0) L Mean Corpuscular Hemoglobin Concent 32.8 G/DL (32.0-36.0) Red Cell Distribution Width 19.2 % (11.6-14.8) H Platelet Count 234 K/UL (150-450) Mean Platelet Volume 5.7 FL (6.5-10.1) L Neutrophils (%) (Auto) 60.0 % (45.0-75.0) Lymphocytes (%) (Auto) 24.2 % (20.0-45.0) Monocytes (%) (Auto) 10.9 % (1.0-10.0) H Eosinophils (%) (Auto) 3.8 % (0.0-3.0) H Basophils (%) (Auto) 1.1 % (0.0-2.0) Sodium Level 139 MMOL/L (136-145) Potassium Level 4.1 MMOL/L (3.5-5.1) Chloride Level 107 MMOL/L (98-107) Carbon Dioxide Level 24 MMOL/L (21-32) Anion Gap 8 mmol/L (5-15) Blood Urea Nitrogen 14 mg/dL (7-18) Creatinine 1.2 MG/DL (0.55-1.30) Estimat Glomerular Filtration Rate 47.9 mL/min (>60) Glucose Level 128 MG/DL (74-106) H Calcium Level 8.4 MG/DL (8.5-10.1) L Objective HEAD AND NECK: No JVD, LUNGS: Coarse rhonchi. CARDIOVASCULAR: Regular S1 and S2 with no gallop. ABDOMEN: Morbidly obese. EXTREMITIES: 1+ pitting edema. Adama Trujillo MD August 24, 2017 16:46
--- NOTE | 2017-08-25 19:11 | Discharge Summary ---
Discharge Summary Discharge Summary _ DATE OF ADMISSION: 07/29/2017 DATE OF DISCHARGE: 08/24/2017 CONSULTANTS: Dr. Adama Hopson [facility] COURSE: Patient is a 46-year-old female, presented to ED due to dizziness. Upon initial evaluation patient was tachypneic and hyperventilating. She was found to be hypotensive. She has history of diabetes, blood sugar checked was over 500. She was emergently intubated and a central line was inserted to the right femoral. White count was 36, pH was 6.8. She was admitted for septic shock and diabetic ketoacidosis. She also had acute kidney injury secondary to severe volume depletion and ischemic acute tubular necrosis from hypotension. She was admitted to ICU and was started on levophed an insulin drip. She was started empirically on Zosyn and vancomycin. She was noted to have erythema on the lower abdomen, suspect cellulitis of the left lower quadrant. Surgical evaluation was done there was no criteria for necrotizing fasciitis. He was continued on vent support. Echocardiogram done showed ejection fraction of 60%. She had poor urine output and had worsening renal function. She was eventually started on hemodialysis. A left femoral vein Manjinder catheter was inserted. She was eventually taken off IV pressors and was extubated on 08/05/2017. She coded on 08/07/2017 and eventually was reintubated and was restarted on IV pressors. A new dialysis catheter was placed on the right IJ. There was a drop in hemoglobin and underwent blood transfusion. She was eventually taken off IV pressors. On 08/11/2017 she was extubated. She had severe hyponatremia, however resolved. She underwent swallow evaluation and was eventually started on a diet. She was transferred out of ICU and was placed on medical surgical floor. Renal failure resolved, dialysis catheter was removed. Cellulitis on the abdomen improved. Patient was given meropenem and Zyvox which would also cover left forearm cellulitis due to an infiltrated IV line versus phlebitis. There was no clinical evidence of abscess seen, And venous duplex was negative for DVT. She was advised to keep arm elevated at all times. Bone scan to the left leg ruled out osteomyelitis, blood culture was likewise negative. She had slow recovery due to significant lymphedema and fluid overload. Wound culture grew Pseudomonas. She was given local fungal coverage to skin folds, she was given ciprofloxacin. She had left leg wound with infection due to staph and Klebsiella. She was given wound care. Blood sugar had better control. She was placed on Levemir and NovoLog sliding scale. At time of discharge patient was on Levemir 6 units twice a day and Starlix 120 mg before meals 3 times a day; and NovoLog sliding scale. She was advised need to follow-up with PCP for DM management. FINAL DIAGNOSES: Septic shock Acute kidney injury Diabetes mellitus out of control Diabetic ketoacidosis Status post cardiac arrest Acute respiratory failure requiring intubation Morbid obesity Hypertension Hypokalemia Anemia requiring blood transfusion Severe hyponatremia Cellulitis of abdominal wall Urinary tract infection Left leg wound Forearm swelling DISPOSITION: Due to insurance status patient did not qualify for home health or SNF, patient was discharged home. DISCHARGE MEDICATIONS: Refer to Discharge Medication List. DISCHARGE INSTRUCTIONS: Follow up with PCP in a week. I have been assigned to dictate discharge summary on this account, and I was not involved in the patient's management. Susan Mckeon NP August 25, 2017 19:11
== END 2017-08-24 16:49 | disposition home or self-care (01) | DRG 720 ==
LOC: EDBD 13:06 → EMR 13:36 → EDBEDREQ 14:26 → ICU 14:55 → EDBEDREQ 14:57 → 2W 08-06 18:57 → ICU 08-07 23:47 → 2W 08-13 18:12 → 2E 08-15 20:53 → 4E 08-17 14:26
PROC: 5A1945Z Respiratory Ventilation, 24-96 Consecutive Hours (ICD-10-PCS; principal; 2017-07-29)
PROC: 0BH17EZ Insertion of Endotracheal Airway into Trachea, Via Natural or Artificial Opening (ICD-10-PCS; principal; 2017-07-29)
PROC: 06HM33Z Insertion of Infusion Device into Right Femoral Vein, Percutaneous Approach (ICD-10-PCS; 2017-07-29)
PROC: 5A1D70Z Performance of Urinary Filtration, Intermittent, Less than 6 Hours Per Day (ICD-10-PCS; 2017-07-31)
PROC: 06HN33Z Insertion of Infusion Device into Left Femoral Vein, Percutaneous Approach (ICD-10-PCS; 2017-07-31)
PROC: 4A133B1 Monitoring of Arterial Pressure, Peripheral, Percutaneous Approach (ICD-10-PCS; 2017-08-02)
PROC: 4A133J1 Monitoring of Arterial Pulse, Peripheral, Percutaneous Approach (ICD-10-PCS; 2017-08-02)
PROC: 30233N1 Transfusion of Nonautologous Red Blood Cells into Peripheral Vein, Percutaneous Approach (ICD-10-PCS; 2017-08-04)
PROC: 0BH17EZ Insertion of Endotracheal Airway into Trachea, Via Natural or Artificial Opening (ICD-10-PCS; 2017-08-08)
PROC: B544ZZA Ultrasonography of Left Jugular Veins, Guidance (ICD-10-PCS; 2017-08-08)
PROC: 05HN33Z Insertion of Infusion Device into Left Internal Jugular Vein, Percutaneous Approach (ICD-10-PCS; 2017-08-08)
PROC: 05HM33Z Insertion of Infusion Device into Right Internal Jugular Vein, Percutaneous Approach (ICD-10-PCS; 2017-08-09)
DX: A41.9 Sepsis, unspecified organism (principal); N17.0 Acute kidney failure with tubular necrosis; J96.00 Acute respiratory failure, unspecified whether with hypoxia or hypercapnia; R65.21 Severe sepsis with septic shock; L03.311 Cellulitis of abdominal wall; E11.65 Type 2 diabetes mellitus with hyperglycemia; E11.10 Type 2 diabetes mellitus with ketoacidosis without coma; J02.9 Acute pharyngitis, unspecified; N39.0 Urinary tract infection, site not specified; E87.1 Hypo-osmolality and hyponatremia; E66.01 Morbid (severe) obesity due to excess calories; Z68.43 Body mass index [BMI] 50.0-59.9, adult; I46.9 Cardiac arrest, cause unspecified; D64.9 Anemia, unspecified; I10 Essential (primary) hypertension; T80.89XA Other complications following infusion, transfusion and therapeutic injection, initial encounter; M79.89 Other specified soft tissue disorders; I89.0 Lymphedema, not elsewhere classified; E87.6 Hypokalemia; J90 Pleural effusion, not elsewhere classified; L08.89 Other specified local infections of the skin and subcutaneous tissue; B95.61 Methicillin susceptible Staphylococcus aureus infection as the cause of diseases classified elsewhere; B96.1 Klebsiella pneumoniae [K. pneumoniae] as the cause of diseases classified elsewhere
CPT/HCPCS: 31500; 36415; 36569; 36600; 71045; 74018; 74176; 76770; 76937; 78315; 80048; 80053; 80202; 80307; 81003; 81025; 82270; 82330; 82378; 82550; 82553; 82607; 82728; 82746; 82803; 82947; 82962; 83036; 83540; 83550; 83605; 83690; 83735; 83880; 84100; 84132; 84439; 84443; 84478; 84484; 85007; 85025; 85044; 85379; 85610; 85730; 86850; 86900; 86901; 86920; 87040; 87070; 87081; 87086; 87181; 87205; 87324; 92950; 93005; 93306; 93925; 93970; 94002; 94003; 94660; 94664; 94760; 99285; 99291; J1815; J3490; S5561